=== PATIENT | male | born 1950 | race Caucasian/White ===

== ENCOUNTER 2020-08-05 11:13 | Outpatient (REF) | payer OTHER, SELFPAY ==
[2020-08-05 11:36] LABS: MANUAL DIFF FLAG NO
[2020-08-05 12:05] LABS: Basophils Percent Auto 0.4 % (0-2); Eosinophils Absolute Auto 0.1 X10*3/uL (0.0-0.4); Hematocrit 44.5 % (42-52); Hemoglobin 14.2 g/dl (14.0-18.0); Imm Gran Abs Auto 0.01 X10*3/uL (0.00-0.03); Imm Gran Pct Auto 0.2 % (0.0-0.4); Lymphocytes Absolute Auto 1.4 X10*3/uL (1.2-4.9); Lymphocytes Percent Auto 30.6 % (20-40); Mean Corpuscular HGB Conc 31.9 g/dl (31.0-36.0); Mean Corpuscular Hemoglobin 30.7 pg (27.0-33.0); Mean Corpuscular Volume 96.1 fL (80-98); Mean Platelet Volume 10.5 fL (9.4-12.4); Monocytes Absolute Auto 0.6 X10*3/uL (0.1-1.2); Monocytes Percent Auto 12.4 % (2-11); Neutrophils Absolute Auto 2.5 X10*3/uL (2.0-8.3); Neutrophils Percent Auto 53.4 % (45-73); Platelet Count 258 X10*3/uL (160-400); Red Blood Count 4.63 X10*6/uL (4.60-5.80); Red Cell Distribution Width 13.1 % (11.0-16.0); White Blood Count 4.6 X10*3/uL (4.8-10.8)
[2020-08-05 12:45] LABS: Alanine Aminotransferase 23 U/L (0-40); Albumin Level 4.3 g/dL (3.5-5.0); Alkaline Phosphatase 53 U/L (39-117); Anion Gap 12 (12-20); Aspartate Amino Transferase 22 U/L (5-37); Bilirubin Total 0.6 mg/dL (0.0-1.0); Blood Urea Nitrogen 22 mg/dL (9-16); Calcium 8.9 mg/dL (8.4-10.2); Carbon Dioxide 29 mmol/L (22-29); Chloride 106 mmol/L (96-108); Cholesterol 197 mg/dL; Estimated Glomerular Filt Rate > 60; Glucose Fasting 88 mg/dL (60-99); HDL Cholesterol 49 mg/dL; LDL Cholesterol Calculated 133 mg/dl; Sodium 143 mmol/L (135-145); Total Protein 7.3 g/dL (6.5-8.0); Triglycerides 75 mg/dL
[2020-08-05 12:51] LABS: PSA,Total (Free>4and<10) 2.16 ng/mL (0.00-4.00)
[2020-08-05 12:57] LABS: Glucose Urine UA NEG (NEG); Leukocyte Esterase Urine NEG (NEG); Nitrite Urine NEG (NEG); Urine Blood NEG (NEG); Urine Ketones NEG (NEG); Urine Protein NEG (NEG-TRACE)
[2020-08-05 13:02] LABS: Reflex LDLD? No
[2020-08-05 13:09] LABS: Appearance Urine CLEAR; Color Urine YELLOW
== END 2020-08-05 11:14 | disposition home or self-care (01) ==
LOC: HO.LNP 11:13
PROVIDERS: Visit Provider Internal Medicine
DX: Z00.00 Encounter for general adult medical examination without abnormal findings (principal); Z12.5 Encounter for screening for malignant neoplasm of prostate; R73.03 Prediabetes; E78.00 Pure hypercholesterolemia, unspecified; R31.9 Hematuria, unspecified
CPT/HCPCS: 80053; 80061; 81003; 84153; 85025

== ENCOUNTER 2020-09-02 10:10 | Day surgery (SDC) | payer OTHER, SELFPAY ==
[2020-08-28 14:26] VITALS: BMI 63.3
--- NOTE | 2020-08-29 13:46 | HO.ANESPROP2 ---
Documented by User: Sofya Moreland 08/29/20 13:47 HPI - Anesthesia Eval Consult details Narrative: 70yo M for Colonoscopy [facility] Past Medical History Medical History Bronchitis Cervical disc herniation Hiatal hernia Hx of ulcerative colitis Surgical History Surgical History H/O colonoscopy Hx of inguinal hernia repair Hx of umbilical hernia repair Social History Social History Household Members: Spouse Smoking Status: Former smoker Tobacco Type: Cigarette Smoking Quit Date: >10 yr ago Use of substances other than those prescribed or required for medical reasons: No Advance Directives Information Provided: No Meds Allergies Allergy/AdvReac Type Severity Reaction Status Date / Time seasonal Allergy Intermediate Itchy Eyes Uncoded 08/28/20 14:20 Home Medications Medication Instructions Recorded Confirmed Last Taken Type albuterol sulfate [Ventolin HFA] 2 puff INHALATION Q4-6H PRN 08/28/20 08/28/20 Unknown History balsalazide 2,250 mg PO BID 08/28/20 08/28/20 Unknown History bupropion HCl 08/28/20 08/28/20 Unknown History carisoprodol 1 tab PO Q8H PRN 08/28/20 08/28/20 Unknown History fluticasone propionate 1 spray INTRANASAL DAILY 08/28/20 08/28/20 Unknown History lorazepam 1 tab PO DAILY PRN 08/28/20 08/28/20 Unknown History mesalamine [Canasa] 1 g ID BEDTIME PRN 08/28/20 08/28/20 Unknown History Exam Exam Date and Time: August 29, 2020 1346 Height,Weight and Vital Signs: Height 6 ft Weight 212 kg Pertinent Lab Results Pertinent Lab Results: Laboratory Tests 08/05/20 08/05/20 Unknown Unknown WBC 4.6 L Hgb 14.2 Hct 44.5 Plt Count 258 Sodium 143 Potassium 4.0 Chloride 106 Carbon Dioxide 29 BUN 22 H Creatinine 1.02 Assessment and Plan Assessment Anesthesia Assessment: Chart Reviewed Documented by User: Onur Cordero 09/02/20 10:52 PMFSH Past Medical History Medical History Bronchitis Cervical disc herniation Hiatal hernia Hx of ulcerative colitis Surgical History Surgical History H/O colonoscopy Hx of inguinal hernia repair Hx of umbilical hernia repair Social History Social History Household Members: Spouse Smoking Status: Former smoker Tobacco Type: Cigarette Smoking Quit Date: >10 yr ago Use of substances other than those prescribed or required for medical reasons: No Advance Directives Information Provided: No Meds Allergies Allergy/AdvReac Type Severity Reaction Status Date / Time seasonal Allergy Intermediate Itchy Eyes Uncoded 08/28/20 14:20 Home Medications Medication Instructions Recorded Confirmed Last Taken Type albuterol sulfate [Ventolin HFA] 2 puff INHALATION Q4-6H PRN 08/28/20 08/28/20 Unknown History balsalazide 2,250 mg PO BID 08/28/20 08/28/20 Unknown History bupropion HCl 08/28/20 08/28/20 Unknown History carisoprodol 1 tab PO Q8H PRN 08/28/20 08/28/20 Unknown History fluticasone propionate 1 spray INTRANASAL DAILY 08/28/20 08/28/20 Unknown History lorazepam 1 tab PO DAILY PRN 08/28/20 08/28/20 Unknown History mesalamine [Canasa] 1 g ID BEDTIME PRN 08/28/20 08/28/20 Unknown History Exam Airway Mallampati Class: II TM Dist: >3cm Neck ROM: Full Loose/Missing/Broken Teeth: Yes (UPPER IMPLANTS) Heart: [id number] Lungs: cta b/l Assessment and Plan Assessment Anesthesia Assessment: Anesthesia Plan Discussed, PAT Visit and Chart Reviewed Final Anesthetic Review NPO: Yes ASA Class: II Final Preanesthetic Review: No Changes in Pt Med Stat, Meds/Allgs Chart Reviewed, Consent Obtained/Reviewed and Anes Risks/Benef Reviewed Patient Risk: Low Procedure Risk: Low Assessment/Block/Sedation in SS: Assess/Block/Sedation-SS Anesthetic Plan Anesthetic Plan: MAC: and Agree w/ Assess. and Plan Disposition: Standard PACU
[2020-09-02 10:46] VITALS: BMI 27.3
[2020-09-02 10:47] VITALS: BP 141/74; PULSE 97; RESP 20; TEMP 36.6; O2SAT 96
[2020-09-02] MEDS: Lactated Ringers 1,000 ML 100 ML IVCONT (11:15)
[2020-09-02 13:30] VITALS: BP 115/62; PULSE 66; RESP 16; TEMP 36.6; O2SAT 100
--- NOTE | 2020-09-02 13:31 | P.BOP_ITS ---
Brief Operative Note Date of Service: 09/02/20 Pre-op diagnosis: Screening, Ulcerative colitis Post-op diagnosis: other (Colon polyps, R/O Dysplasia) Procedure: Colonoscopy to the cecum with biopsies, bx/removal of polyp, and snare polypectomy at 20cm with clips x 2 Surgeon: Dae Marcelino Anesthesia: MAC Was an Ems Educator used for this Procedure?: No Estimated blood loss (mL): 5.0 Pathology: other (A. Asc. colon B. Cecal polyp C. Bx around cecal polyp D.Transverse colon E. Descending colon F. Sigmoid colon G. Polyp at 20cm H. Rectum) Condition: stable Disposition: PACU
[2020-09-02 13:45] VITALS: BP 115/67; PULSE 58; RESP 16; TEMP 36.6; O2SAT 97
--- NOTE | 2020-09-02 14:09 | OP_ITS ---
SURGEON: Dae Marcelino MD INDICATIONS: The patient presents for evaluation of colorectal cancer screening and underlying history of ulcerative colitis. Full consent has been obtained from him for this, including risks of bleeding and perforation. PREOPERATIVE DIAGNOSIS: POSTOPERATIVE DIAGNOSIS: PROCEDURE PERFORMED: Colonoscopy to the cecum with snare polypectomy, biopsy and removal of polyp, and biopsies. ESTIMATED BLOOD LOSS: COMPLICATIONS: ANESTHESIA: Monitored anesthesia care. ASSISTANTS: SPECIMENS: PREOPERATIVE DIAGNOSES: Colorectal cancer screening and history of ulcerative colitis. POSTOPERATIVE DIAGNOSES: Colorectal cancer screening and history of ulcerative colitis, colon polyps, rule out dysplasia, diverticulosis, and internal hemorrhoids. DESCRIPTION OF PROCEDURE: The patient was placed in the left lateral decubitus position. The digital rectal exam revealed no abnormalities. The Olympus video pediatric colonoscope was entered into the rectum and advanced easily to the cecum. Once in the cecum, I did identify cecal pouch with appendiceal orifice and a normal-appearing ileocecal valve. The entire cecum was well visualized and appeared normal other than an approximately 4 mm flat polyp, which was biopsied and completely removed with cold biopsy forceps. I also obtained biopsies from around it to rule out any dysplasia. There was transillumination of light deep in the right lower quadrant. The scope was slowly withdrawn assessing all mucosal surfaces carefully. Preparation was excellent. I did not visualize any sign of active colitis. Random biopsies were obtained in the ascending colon, transverse colon, descending colon, sigmoid colon, and rectum. At 20 cm, was an approximately 12 to 15 mm polyp on a stalk, which was snared and recovered by withdrawing it on the tip of the scope. The scope was advanced back to the polypectomy site. There was no sign of any residual polyp. There was some persistent oozing, which was treated with the tip of the snare with good hemostasis. I then placed 2 resolution clips with good deployment and good hemostasis as well. There was a mild amount of sigmoid diverticulosis. In the rectum, scope was retroflexed visualizing internal hemorrhoids, but no other pathology. The rectal mucosa appeared normal. The scope was straightened out and withdrawn from the patient. He tolerated the procedure well and was returned to the recovery area in stable condition. IMPRESSION: 1. Colon polyps, status post snare polypectomy, and biopsy and removal. 2. Rule out dysplasia. 3. Diverticulosis. 4. Internal hemorrhoids. PLAN: The results of the pathology will be checked. I would recommend a repeat colonoscopy in 3 years for further surveillance. He was advised not to use any aspirin and NSAIDs for at least 1 week, but to try to avoid all NSAIDs long-term given the underlying colitis. He will continue his balsalazide for the colitis. This has been discussed with his . MD TRIP Olivares/GRICELDA / [id number] MTDD
== END 2020-09-02 14:16 | disposition home or self-care (01) ==
PROVIDERS: PCP Internal Medicine; Visit Provider Internal Medicine
PROC: 0DJD8ZZ Inspection of Lower Intestinal Tract, Via Natural or Artificial Opening Endoscopic (ICD-10-PCS; CPT 45378; principal; 2020-09-02 11:40)
DX: K51.30 Ulcerative (chronic) rectosigmoiditis without complications (principal); D12.0 Benign neoplasm of cecum; D12.5 Benign neoplasm of sigmoid colon; K57.30 Diverticulosis of large intestine without perforation or abscess without bleeding; K64.8 Other hemorrhoids; K62.89 Other specified diseases of anus and rectum; J42 Unspecified chronic bronchitis; Z87.891 Personal history of nicotine dependence; K44.9 Diaphragmatic hernia without obstruction or gangrene; Z79.899 Other long term (current) drug therapy
CPT/HCPCS: 45385; 45380; 88305

== ENCOUNTER 2021-08-12 10:45 | Outpatient (REF) | payer OTHER, SELFPAY ==
[2021-08-12 10:51] LABS: MANUAL DIFF FLAG NO
[2021-08-12 11:39] LABS: Basophils Percent Auto 0.7 % (0-2); Eosinophils Absolute Auto 0.1 X10*3/uL (0.0-0.4); Eosinophils Percent Auto 2.6 % (0-4); Hematocrit 45.9 % (42.0-52.0); Lymphocytes Absolute Auto 1.4 X10*3/uL (1.2-4.9); Lymphocytes Percent Auto 33.3 % (20-40); Mean Corpuscular HGB Conc 32.7 g/dl (31.0-36.0); Mean Corpuscular Hemoglobin 31.1 pg (27.0-33.0); Mean Corpuscular Volume 95.2 fL (80.0-98.0); Mean Platelet Volume 10.5 fL (9.4-12.4); Monocytes Absolute Auto 0.6 X10*3/uL (0.1-1.2); Monocytes Percent Auto 14.2 % (2-11); Neutrophils Absolute Auto 2.1 x10*3/uL (2.0-8.3); Neutrophils Percent Auto 49.2 % (45-73); Platelet Count 278 X10*3/uL (160-400); Red Blood Count 4.82 X10*6/uL (4.60-5.80); White Blood Count 4.3 X10*3/uL (4.8-10.8)
[2021-08-12 11:49] LABS: Estimated Average Glucose 114 mg/dL; Hemoglobin A1c % 5.6 %
[2021-08-12 12:00] LABS: Appearance Urine CLEAR; Color Urine YELLOW; Glucose Urine UA NEG (NEG); Leukocyte Esterase Urine NEG (NEG); Nitrite Urine NEG (NEG); Specific Gravity - Urine >= 1.030 (1.005-1.025); Urine Blood NEG (NEG); Urine Ketones NEG (NEG); Urine Protein NEG (NEG-TRACE)
[2021-08-12 12:06] LABS: Alanine Aminotransferase 23 U/L (0-40); Albumin Level 4.3 g/dL (3.5-5.0); Alkaline Phosphatase 51 U/L (39-117); Anion Gap 11 (12-20); Aspartate Amino Transferase 21 U/L (5-37); Bilirubin Total 0.7 mg/dL (0.0-1.0); Blood Urea Nitrogen 22 mg/dL (9-16); Calcium 9.5 mg/dL (8.4-10.2); Carbon Dioxide 27 mmol/L (22-29); Chloride 107 mmol/L (96-108); Cholesterol 193 mg/dL; Estimated Glomerular Filt Rate 57; Glucose Random 95 mg/dL (60-115); HDL Cholesterol 37 mg/dL; LDL Cholesterol Calculated 141 mg/dl; Potassium 4.3 mmol/L (3.3-5.1); Sodium 141 mmol/L (135-145); Total Protein 7.6 g/dL (6.5-8.0); Triglycerides 79 mg/dL
[2021-08-12 12:08] LABS: PSA,Total (Free>4and<10) 2.81 ng/mL (0.00-4.00)
[2021-08-12 12:53] LABS: Microalbum/Creatinine Ratio Ur 2.5 ug/mg cr
== END 2021-08-12 10:46 | disposition home or self-care (01) ==
LOC: HO.LNP 10:45
PROVIDERS: Visit Provider Internal Medicine
DX: Z00.00 Encounter for general adult medical examination without abnormal findings (principal); R73.03 Prediabetes; E78.00 Pure hypercholesterolemia, unspecified; R97.20 Elevated prostate specific antigen [PSA]; Z12.5 Encounter for screening for malignant neoplasm of prostate
CPT/HCPCS: 80053; 80061; 81003; 82043; 83036; 84153; 85025

== ENCOUNTER 2021-09-10 12:20 | Outpatient (REF) | payer OTHER, SELFPAY ==
[2021-09-10 12:50] LABS: COVID-19 Test Positive (Negative); IDNOW Serial# 08D9AD1C
== END 2021-09-10 12:21 | disposition home or self-care (01) ==
LOC: HO.LAB 12:20
PROVIDERS: Visit Provider Internal Medicine
DX: Z20.822 Contact with and (suspected) exposure to COVID-19 (principal)
CPT/HCPCS: 87635; C9803

== ENCOUNTER 2022-04-13 15:30 | Outpatient (REF) | payer OTHER, SELFPAY ==
--- NOTE | ~2022-04-13 | XR_ITS ---
EXAMINATION: XR CHEST CLINICAL INFORMATION: Bronchitis COMPARISON: None TECHNIQUE: 2 views of the chest were obtained. FINDINGS: The lungs are hyperinflated but clear of acute process. The heart size and pulmonary vascularity is normal. There is mild spondylosis dorsal spine. No aggressive lytic or sclerotic process seen. XR/XR chest 2V IMPRESSION: Unremarkable chest exam.
== END 2022-04-13 15:31 | disposition home or self-care (01) ==
LOC: HO.XRAY 15:30
PROVIDERS: PCP Internal Medicine; Visit Provider Internal Medicine
DX: J40 Bronchitis, not specified as acute or chronic (principal)
CPT/HCPCS: 71046

== ENCOUNTER 2022-08-28 10:37 | Outpatient (REF) | payer OTHER, SELFPAY ==
[2022-08-28 10:59] LABS: Appearance Urine Clear; Color Urine Yellow; Glucose Urine UA Negative (Negative); Leukocyte Esterase Urine Negative (Negative); Nitrite Urine Negative (Negative); Specific Gravity - Urine 1.015 (1.005-1.025); Urine Blood Negative (Negative); Urine Ketones Negative (Negative); Urine Protein Negative (Neg-Trace)
[2022-08-28 11:05] LABS: Bacteria Urine None Seen (None Seen); Hyaline Casts Urine 0-2 /LPF (0-2); RBC Urine 0-2 /HPF (0-2); Squamous Epithelial Cell Urine 0-2 /HPF (0-2); WBC Urine 0-5 /HPF (0-5)
[2022-08-28 11:37] LABS: Creatinine Urine 105.06 mg/dL; Microalbumin Urine < 5.0 mg/L
[2022-08-28 12:02] LABS: PSA,Total (Free>4and<10) 2.74 ng/mL (0.00-4.00)
== END 2022-08-28 10:38 | disposition home or self-care (01) ==
LOC: HO.LNP 10:37
PROVIDERS: Visit Provider Internal Medicine
DX: Z00.00 Encounter for general adult medical examination without abnormal findings (principal); R73.03 Prediabetes; E78.00 Pure hypercholesterolemia, unspecified; Z12.5 Encounter for screening for malignant neoplasm of prostate
CPT/HCPCS: 81001; 82043; 84153

== ENCOUNTER 2023-07-30 18:34 | Emergency (ER) | payer OTHER, SELFPAY ==
--- NOTE | ~2023-07-30 | CT_ITS ---
EXAMINATION: CT head for stroke CLINICAL INFORMATION: Reason for Exam R facial droop COMPARISON: None. TECHNIQUE: Contiguous axial imaging was performed from the skull base to vertex without intravenous contrast. Sagittal and coronal reformatted images were obtained. This CT examination was performed using dose optimization techniques as appropriate, variously including the following: * Automated exposure control * Adjustment of mA and/or kV according to patient size (this includes techniques or standardized protocols for targeted exams where dose is matched to indication/reason for exam; i.e. extremities or head) Use of iterative reconstruction technique DLP: 693.23 mGy-cm FINDINGS: The ventricles and sulci are normal in size and configuration without significant volume loss or hydrocephalus. There is no abnormal attenuation within the brain parenchyma. No territorial loss of garcia-white differentiation. No acute intracranial hemorrhage or extra-axial fluid collection. No mass lesion, significant mass effect, or herniation pattern. No hyperdense vessel sign. Calcifications along the bilateral carotid siphons. The orbits are grossly normal. Rightward nasal septal deviation with rightward bony spur impinging on the right middle and inferior nasal turbinates. Mild paranasal sinus mucosal thickening with retention cyst in the right alveolar recess. No mastoid effusion. Osseous structures are intact. CT/CT head for stroke IMPRESSION: No acute intracranial abnormality. Specifically, no CT evidence of acute intracranial hemorrhage, significant mass effect, hydrocephalus, or large territorial infarction.
[2023-07-30 18:40] VITALS: BP 168/89; PULSE 78; RESP 18; TEMP 37.2; O2SAT 97; BMI 27.3
--- NOTE | 2023-07-30 18:48 | ECG_ITS ---
Test Reason : RULE OUT AFIB Blood Pressure : / mmHG Vent. Rate : 081 BPM Atrial Rate : 081 BPM P-R Int : 162 ms QRS Dur : 104 ms QT Int : 394 ms P-R-T Axes : 038 031 042 degrees QTc Int : 457 ms Normal sinus rhythm Incomplete right bundle branch block Borderline ECG When compared with ECG of 08-OCT-2006 14:46, Incomplete right bundle branch block is now Present Referred By: Ada Ruiz Electronically Signed By:Devon Olguin
--- NOTE | 2023-07-30 18:49 | ED_ITS ---
HPI - Neuro Symptoms/Deficit General Chief Complaint: Neuro Symptoms/Deficit Stated Complaint: Droopy left side of the face Time Seen by Provider: 07/30/23 18:50 Source: patient and family Mode of arrival: ambulatory Limitations: no limitations History of Present Illness HPI Narrative: 73-year-old male with a history of diabetes mellitus, ulcerative colitis who presents emergency department for evaluation of right facial droop. The patient states that yesterday noted that his right eye and nose were watery. He states that he accidentally bit his lip yesterday as well. Today, while he was eating dinner with his family , his daughter noted that the right side of his face looked droopy therefore his brought him to the emergency department for evaluation. The patient denied being ill in any other way. He denied fever, chills, headache, nausea, vomiting, difficulty talking or difficulty thinking. He has had no change in his vision. He denied lightheadedness or dizziness. He also denied periauricular pain. Patient was evaluated by the prior at triage and was made a stroke protocol brought immediately back to the emergency department and had a CT scan of the brain. I then evaluated the patient in the room shortly after completion of the CT scan of the head. Related Data Home Medications Medication Instructions Recorded Confirmed albuterol sulfate 90 mcg/actuation 2 puff inhalation Q4-6H PRN 08/28/20 08/28/20 aerosol inhaler (Ventolin HFA) Wheezing balsalazide 750 mg capsule 2,250 mg PO BID 08/28/20 08/28/20 bupropion HCl 08/28/20 08/28/20 carisoprodol 350 mg tablet 1 tab PO Q8H PRN Pain 08/28/20 08/28/20 fluticasone propionate 50 1 spray intranasal DAILY 08/28/20 08/28/20 mcg/actuation nasal spray,suspension lorazepam 0.5 mg tablet 1 tab PO DAILY PRN Anxiety 08/28/20 08/28/20 mesalamine 1,000 mg rectal 1 g IL BEDTIME PRN loose stools 08/28/20 08/28/20 suppository (Canasa) Previous Rx's Medication Instructions Recorded prednisone 20 mg tablet 60 mg (3 x 20 mg) PO DAILY 7 days 07/30/23 #21 tabs valacyclovir 1 gram tablet 1,000 mg PO Q8H 7 days #21 tabs 07/30/23 Allergies Allergy/AdvReac Type Severity Reaction Status Date / Time seasonal Allergy Intermediate Itchy Eyes Uncoded 07/30/23 18:46 Review of Systems 2 Review of Systems: Yes all other systems are reviewed and are negative [facility] Past Medical History [facility] Narrative: Social history: Diabetes mellitus, ulcerative colitis. Social history: The patient is and is here with his . Patient denies tobacco use. He occasionally drinks alcohol. He denies drug use. Medical History Bronchitis Cervical disc herniation Hiatal hernia Hx of ulcerative colitis Surgical History H/O colonoscopy Hx of inguinal hernia repair Hx of umbilical hernia repair Social History Social History Household Members: Spouse Use of substances other than those prescribed or required for medical reasons: No Advance Directives: No Advance Directives Information Provided: Yes Physical Exam 2 Vital Signs: Vital Signs: Last Vital Signs Temp 98.9 F 07/30/23 18:40 Pulse 72 07/30/23 19:10 Resp 18 07/30/23 19:10 BP 155/72 H 07/30/23 19:10 Pulse Ox 97 07/30/23 19:10 O2 Del Method Room Air 07/30/23 19:10 BMI result Body Mass Index 27.3 Vital signs did reveal an elevated blood pressure of 160/89 otherwise unremarkable Exam: General: Awake, alert in no distress Head: Normocephalic, atraumatic EENT: PERRL, Lids normal, sclera normal, conjunctiva normal, nose normal , ears normal, throat without erythema or exudates, right facial droop with diminished ability to move right side of his for compared to left Neck: Supple, no adenopathy Lung: breath sounds symmetric, no wheezing, rales or rhonchi Chest: symmetric movement, nontender Heart: regular rate and rhythm, normal S1, S2 no murmurs or rubs Abdomen: soft, non-tender, nondistended, normal bowel sounds Back: no vertebral tenderness, no CVAT Extremities: no deformities, moves all extremities symmetrically Neuro: General: Awake, alert, oriented to person, place answers all questions appropriately, normal speech with no difficulty with word finding Cranial nerves: Patient has a peripheral cranial nerve 7 with inability to close his right eye completely, slight decreased ability to wrinkle his right forehead compared to the left and right lower lip facial droop Strength: 5/5 symmetric, gait was normal Sensory: Normal light touch to both sides of his face, neck upper and lower extremity Cerebellar: No ataxia Course Course Course Narrative: This is an RME: Additional HPI, ROS, PE not included below will be deferred to primary provider. Patient is a 73-year-old male presents emergency department for evaluation of right-sided facial droop. Reports that approximately 15 minutes prior to arrival he was eating dinner when he noticed salad dressing to be dripping out of his mouth. His daughter began to notice a facial droop on the right particularly in his smile. On exam does have right-sided facial droop, weakness spares the forehead, stroke alert called. Patient to be moved in back to ED 19 Medical Decision Making Medical Decision Making MDM Narrative: 73-year-old male with a history of diabetes mellitus and ulcerative colitis who presents emergency department for evaluation of right facial droop. The patient did notice watery right eye with redness yesterday and also accidentally bit his right lower lip yesterday. Today while he was eating dinner his daughter noted that he was drooling and he had right-sided facial droop, this occurred 30 minutes prior to coming to emergency department. The patient denied being ill in any other way, he denied systemic symptoms, he had no periauricular pain. Vital signs did reveal an elevated blood pressure of 168/89 otherwise unremarkable. Patient's examination did reveal a right facial droop with obvious but not significant decreased wrinkling of the forehead on the right compared to the left as well as slight diminished ability to close the right eye and a right lip droop with asymmetric smile. Patient's neurologic exam was otherwise unremarkable Differential diagnosis: ?Includes but is not limited to stroke, Holland's palsy, atrial fibrillation, electrolyte abnormalities, anemia Following evaluation was ordered: Stroke protocol: CBC, BMP, liver profile, PT/INR, PTT, stroke labs, CK, glucose point of care, troponin, CT scan of the head to rule out stroke Patient was initially treated with the following: Prednisone 60 mg orally and valacyclovir 1000 mg orally Course: 19:27 I did discuss the CT scan of the brain with the covering radiologist felt that there was no acute findings on the CT scan Patient's point of care glucose was 147 and PT INR were normal. Twelve EKG revealed no atrial fibrillation 20:32 My impression of the patient's laboratory evaluation as follows: CBC was normal. CMP was normal except for an elevated glucose of 143 and elevated BUN of 20. My impression is that the patient's symptoms are more consistent with Holland's palsy especially symptoms started yesterday and the patient has decreased ability to wrinkled a right forehead compared to the left. Therefore the patient is not a thrombolytics candidate since I do not think that he has had a stroke. Patient will be treated with prednisone 60 mg once a day for 7 days and valacyclovir 1000 mg 3 times a day for 1 week. He was advised to get natural tears/saline drops and apply 2 drops to his right eye every hour while awake and to get a cup eye patch to wear at night to prevent corneal abrasions Patient was given printed and verbal instructions and discharged home. Admission/Observation Consideration of admission/observation: Escalation of care including admission/observation considered Lab Data [facility] Lab Attestation statement: I reviewed the patient's lab results. 07/30/23 19:09 07/30/23 19:09 Labs: Lab Results 07/30/23 07/30/23 Range/Units 19:09 19:17 WBC 5.9 (4.8-10.8) X10*3/uL RBC 4.59 L (4.60-5.80) X10*6/uL Hgb 14.3 (14.0-18.0) g/dl Hct 41.8 L (42.0-52.0) % MCV 91.1 (80.0-98.0) fL MCH 31.2 (27.0-33.0) pg MCHC 34.2 (31.0-36.0) g/dl RDW 12.6 (11.0-16.0) % Plt Count 230 (160-400) X10*3/uL MPV 9.4 (9.4-12.4) fL Immature Gran % (Auto) 0.0 (0.0-0.4) % Neut % (Auto) 57.1 (45-73) % Lymph % (Auto) 28.0 (20-40) % Falls % (Auto) 12.6 H (2-11) % Eos % (Auto) 2.1 (0-4) % Baso % (Auto) 0.2 (0-2) % Lymph # (Auto) 1.6 (1.2-4.9) X10*3/uL Falls # (Auto) 0.7 (0.1-1.2) X10*3/uL Eos # (Auto) 0.1 (0.0-0.4) X10*3/uL Baso # (Auto) 0.0 (0.0-0.2) X10*3/uL Abs Immat Gran (auto) 0.00 (0.00-0.03) X10*3/uL Absolute Neuts (auto) 3.3 (2.0-8.3) x10*3/uL Absolute Nucleated RBC 0.000 (0.0-0.012) X10*3/uL Nucleated RBC % (auto) 0.0 (0.0-0.2) /100WBC PT 10.9 L (11.1-13.3) SEC INR 0.9 (0.9-1.1) APTT 27.9 (26.0-36.8) SEC Sodium 139 (135-145) mmol/L Potassium 3.4 (3.3-5.1) mmol/L Chloride 106 (96-108) mmol/L Carbon Dioxide 28 (22-29) mmol/L Anion Gap 8 L (12-20) BUN 20 H (9-16) mg/dL Creatinine 1.02 (0.5-1.4) mg/dL Estim Creat Clear Calc 70.7 Estimated GFR > 60 POC Glucose 143 H (60-115) mg/dL Random Glucose 150 H (60-115) mg/dL Calcium 8.9 D (8.4-10.2) mg/dL Total Bilirubin 0.3 (0.0-1.0) mg/dL Direct Bilirubin 0.1 (0.0-0.5) mg/dL AST 17 (5-37) U/L ALT 18 (0-40) U/L Alkaline Phosphatase 64 (39-117) U/L Total Creatine Kinase 84 (38-174) U/L Troponin I High Sens < 2.7 (<3.5-35.0) ng/L Total Protein 7.5 (6.5-8.0) g/dL Albumin 4.1 (3.5-5.0) g/dL Independent Interpretation I performed an independent interpretation of an: EKG Interpretation: My independent interpretation patient's 12 EKG done at 18:58 hours is as follows: Normal sinus rhythm with a rate of 81, normal IL interval, prolonged QRS duration of 104 milliseconds, normal QTC interval of 457 milliseconds, patient has an incomplete right bundle-branch block with no ST segment elevation, no ST segment depression, no significant T-wave abnormalities, no PACs, no PVCs Radiology Impression Discussion of test interpretation with radiology: I discussed test interpretation with the radiologist and I have reviewed the radiologist's reading. Radiologist Impression: CT head for stroke IMPRESSION: No acute intracranial abnormality. Specifically, no CT evidence of acute intracranial hemorrhage, significant mass effect, hydrocephalus, or large territorial infarction. Dictated By: Echo Crawford Independent Historian Clinical information obtained from an independent historian. History obtained from or confirmed by: Spouse Prescription Management I considered prescription management with: Antiviral and Other (Prednisone/anti- inflammatory steroid) Chronic Conditions Patient?s care impacted by: Diabetes NIH Stroke Scale Internal: Initial- Upon Arrival Level of Consciousness: Alert Level of Consciousness Questions: Answers both questions correctly Level of Consciousness Commands: Performs both tasks correctly Best Gaze: Normal Visual: No visual loss Facial Palsy: Minor paralyis (With diminished ability to wrinkle the right forehead compared to the left) Motor Arm (Right): No drift Motor Arm (Left): No drift Motor Leg (Right): No drift Motor Leg (Left): No drift Limb Ataxia: Absent Sensory: Normal Best Language: No aphasia Dysarthia: Normal Extinction and Inattention: No abnormality Score: 1 Critical Care Time Critical Care Time Critical Care Time: Yes Total Critical Care Time: 35 Attestation: Critical Care: The patient was critically ill with a high probability of imminent or life threatening deterioration. I spent greater than 30 minutes of discontinuous time evaluating the patient,delivering critical care at the bedside, discussing and evaluating pertinent data with consultants. Critical care time does not include time spent performing separately billable procedures or teaching. Total time spent performing critical care was 35 minutes. Discharge Plan Discharge Clinical Impression: Holland's palsy Patient Disposition: Home, Self-Care Instructions: Holland Palsy (ED) Additional Instructions: The CT scan of your brain was normal which is reassuring Your blood work was normal except for slight elevation in your blood sugar of 143. Your physical examination is consistent with cranial nerve 7 inflammation/palsy (Holland's palsy) This can sometimes be caused by a viral infection which causes the cranial nerve 7 to get swollen and impinge. Take prednisone 20 mg pills, 3 pills once a day for 7 days. While you ?are taking prednisone, do not take any NSAIDs (Motrin, Advil, ibuprofen, Aleve, naproxen). Prednisone will make your blood sugar go up so drank fluid to help decrease your blood sugar and to stay hydrated Take valacyclovir 1000 mg, 1 pill 3 times a day for 7 days. Holland's palsy inhibits her ability to closure your eye complete and this can cause your eye to dry out or get scratched at night. 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 Also purchase a cup eye patch to cover your eye at night to prevent you from scratching your eye at night. Follow-up with your doctor in 2 days. Please return to the emergency department if your symptoms get worse or if you develop any symptoms that are concerning to you. Prescriptions: New prednisone 20 mg tablet 60 mg PO DAILY 7 Days Qty: 21 0RF valacyclovir 1 gram tablet 1,000 mg PO Q8H 7 Days Qty: 21 0RF No Action carisoprodol 350 mg tablet 1 tab PO Q8H PRN (Reason: Pain) lorazepam 0.5 mg tablet 1 tab PO DAILY PRN (Reason: Anxiety) balsalazide 750 mg Capsule 2,250 mg PO BID albuterol sulfate [Ventolin HFA] 90 mcg/actuation Hfa Aerosol Inhaler 2 puff INHALATION Q4-6H PRN (Reason: Wheezing) fluticasone propionate 50 mcg/actuation spray,suspension 1 spray intranasal DAILY mesalamine [Canasa] 1,000 mg Suppository 1 g IL BEDTIME PRN (Reason: loose stools) bupropion HCl
[2023-07-30 19:10] VITALS: BP 155/72; PULSE 72; RESP 18; O2SAT 97
[2023-07-30 19:14] LABS: MANUAL DIFF FLAG NO
--- NOTE | 2023-07-30 19:18 | PC.NURSE ---
Pt aox4 arrived via EMS presenting with right facial droop. Right eye redness and swelling. Reports no pain at this time. GCS: 15. Stroke alert called in. Ct Scan done, results pending. 20G IV line on the R AC. Labs drawn and sent. Pts reports noticing right facial droop today around 1800.
[2023-07-30 19:20] LABS: Basophils Percent Auto 0.2 % (0-2); Eosinophils Absolute Auto 0.1 X10*3/uL (0.0-0.4); Eosinophils Percent Auto 2.1 % (0-4); Hematocrit 41.8 % (42.0-52.0); Hemoglobin 14.3 g/dl (14.0-18.0); Lymphocytes Absolute Auto 1.6 X10*3/uL (1.2-4.9); Mean Corpuscular HGB Conc 34.2 g/dl (31.0-36.0); Mean Corpuscular Hemoglobin 31.2 pg (27.0-33.0); Mean Corpuscular Volume 91.1 fL (80.0-98.0); Mean Platelet Volume 9.4 fL (9.4-12.4); Monocytes Absolute Auto 0.7 X10*3/uL (0.1-1.2); Monocytes Percent Auto 12.6 % (2-11); Neutrophils Absolute Auto 3.3 x10*3/uL (2.0-8.3); Neutrophils Percent Auto 57.1 % (45-73); Platelet Count 230 X10*3/uL (160-400); Red Blood Count 4.59 X10*6/uL (4.60-5.80); Red Cell Distribution Width 12.6 % (11.0-16.0); White Blood Count 5.9 X10*3/uL (4.8-10.8)
[2023-07-30 19:23] LABS: Glucose, Whole Blood 143 mg/dL (60-115)
[2023-07-30 19:26] LABS: INTERNATIONAL NORM RATIO 0.9 (0.9-1.1); Prothrombin Time 10.9 SEC (11.1-13.3)
[2023-07-30 19:29] LABS: Partial Thromboplastin Time 27.9 SEC (26.0-36.8)
[2023-07-30 19:33] LABS: Alanine Aminotransferase 18 U/L (0-40); Albumin Level 4.1 g/dL (3.5-5.0); Alkaline Phosphatase 64 U/L (39-117); Anion Gap 8 (12-20); Aspartate Amino Transferase 17 U/L (5-37); Bilirubin Direct 0.1 mg/dL (0.0-0.5); Bilirubin Total 0.3 mg/dL (0.0-1.0); Blood Urea Nitrogen 20 mg/dL (9-16); Calcium 8.9 mg/dL (8.4-10.2); Carbon Dioxide 28 mmol/L (22-29); Chloride 106 mmol/L (96-108); Creatinine Clr Calc Pharmacy 70.7; Estimated Glomerular Filt Rate > 60; Glucose Random 150 mg/dL (60-115); Potassium 3.4 mmol/L (3.3-5.1); Sodium 139 mmol/L (135-145); Total Protein 7.5 g/dL (6.5-8.0)
[2023-07-30 19:37] LABS: Stroke Lab Use COMPLETE
[2023-07-30 19:40] LABS: Troponin-I High Sensitivity < 2.7 ng/L (<3.5-35.0)
[2023-07-30] MEDS: predniSONE 20 MG TABLET 60 MG PO (20:46)
[2023-07-30] MEDS: valACYclovir HCL 1,000 MG TABLET 1000 MG PO (20:46)
[2023-07-30 21:00] VITALS: BP 161/74; PULSE 62; RESP 12; TEMP 36.8; O2SAT 97
[2023-07-31 10:13] LABS: Prothrombin Time Whole Bld POC 12.3 sec (11.1-13.5)
== END 2023-07-30 21:01 | disposition home or self-care (01) ==
PROVIDERS: Nurse Practitioner Family; Emergency Provider Emergency Medicine Emergency Medical Services; PCP Internal Medicine
DX: G51.0 Bell's palsy (principal); I45.10 Unspecified right bundle-branch block; Z79.899 Other long term (current) drug therapy; Z51.81 Encounter for therapeutic drug level monitoring
CPT/HCPCS: 36415; 70450; 80048; 80076; 82550; 82947; 84484; 85025; 85610; 85730; 93005; 99283; 99285

== ENCOUNTER → 2023-07-30 18:48 | Outpatient (BNV) | payer OTHER, SELFPAY | PROVIDERS: Emergency Provider Emergency Medicine Emergency Medical Services; PCP Internal Medicine; Visit Provider Internal Medicine Cardiovascular Disease | DX: R94.31 Abnormal electrocardiogram [ECG] [EKG] (principal) | CPT/HCPCS: 93010 ==

== ENCOUNTER 2023-08-23 11:44 | Outpatient (REF) | payer OTHER, SELFPAY ==
[2023-08-23 11:59] LABS: MANUAL DIFF FLAG NO
[2023-08-23 12:11] LABS: Basophils Percent Auto 0.4 % (0-2); Eosinophils Absolute Auto 0.1 X10*3/uL (0.0-0.4); Eosinophils Percent Auto 1.7 % (0-4); Hematocrit 45.6 % (42.0-52.0); Hemoglobin 14.7 g/dl (14.0-18.0); Lymphocytes Absolute Auto 1.2 X10*3/uL (1.2-4.9); Lymphocytes Percent Auto 24.8 % (20-40); Mean Corpuscular HGB Conc 32.2 g/dl (31.0-36.0); Mean Corpuscular Hemoglobin 30.6 pg (27.0-33.0); Mean Platelet Volume 10.2 fL (9.4-12.4); Monocytes Absolute Auto 0.6 X10*3/uL (0.1-1.2); Monocytes Percent Auto 11.7 % (2-11); Neutrophils Absolute Auto 2.9 x10*3/uL (2.0-8.3); Neutrophils Percent Auto 61.4 % (45-73); Platelet Count 265 X10*3/uL (160-400); Red Cell Distribution Width 13.2 % (11.0-16.0); White Blood Count 4.7 X10*3/uL (4.8-10.8)
[2023-08-23 12:16] LABS: Estimated Average Glucose 120 mg/dL; Hemoglobin A1c % 5.8 % (<6.0)
[2023-08-23 12:34] LABS: Creatinine Urine 242.92 mg/dL; Microalbum/Creatinine Ratio Ur 3.7 ug/mg cr (<30)
[2023-08-23 12:38] LABS: Alanine Aminotransferase 19 U/L (0-40); Albumin Level 4.1 g/dL (3.5-5.0); Alkaline Phosphatase 49 U/L (39-117); Anion Gap 10 (12-20); Aspartate Amino Transferase 19 U/L (5-37); Bilirubin Total 0.6 mg/dL (0.0-1.0); Blood Urea Nitrogen 21 mg/dL (9-16); Calcium 9.5 mg/dL (8.4-10.2); Carbon Dioxide 29 mmol/L (22-29); Chloride 107 mmol/L (96-108); Cholesterol 188 mg/dL (<200); Estimated Glomerular Filt Rate > 60; Glucose Fasting 94 mg/dL (60-99); HDL Cholesterol 45 mg/dL (>40); LDL Cholesterol Calculated 128 mg/dL (<100); Potassium 4.1 mmol/L (3.3-5.1); Sodium 142 mmol/L (135-145); Total Protein 7.5 g/dL (6.5-8.0); Triglycerides 79 mg/dL (<150)
[2023-08-23 12:42] LABS: PSA,Total (Free>4and<10) 3.19 ng/mL (0.00-4.00)
[2023-08-23 12:43] LABS: Appearance Urine Clear; Color Urine Yellow; Glucose Urine UA Negative (Negative); Leukocyte Esterase Urine Trace (Negative); Nitrite Urine Negative (Negative); PH 5.5 (5.0-9.0); Specific Gravity - Urine 1.025 (1.005-1.025); UMIC TRIGGER UACC YES; Urine Blood Negative (Negative); Urine Ketones Trace mg/dL (Negative); Urine Protein Negative (Neg-Trace)
[2023-08-23 12:49] LABS: Bacteria Urine None Seen (None Seen); Hyaline Casts Urine 0-2 /LPF (0-2); RBC Urine 0-2 /HPF (0-2); Squamous Epithelial Cell Urine 0-2 /HPF (0-2); UACC Culture Trigger YES
== END 2023-08-23 11:45 | disposition home or self-care (01) ==
LOC: HO.LNP 11:44
PROVIDERS: Visit Provider Internal Medicine
DX: Z00.00 Encounter for general adult medical examination without abnormal findings (principal); R73.09 Other abnormal glucose; E78.00 Pure hypercholesterolemia, unspecified; Z12.5 Encounter for screening for malignant neoplasm of prostate; R82.90 Unspecified abnormal findings in urine
CPT/HCPCS: 80053; 80061; 81001; 82043; 82570; 83036; 84153; 85025; 87086

== ENCOUNTER 2023-09-10 06:27 | Day surgery (SDC) | payer OTHER, SELFPAY ==
[2023-09-09 07:14] VITALS: BMI 26.4
[2023-09-10 06:44] VITALS: BMI 26.4
[2023-09-10] MEDS: Lactated Ringers 1,000 ML 100 ML IVCONT (06:52)
[2023-09-10 07:00] VITALS: BP 125/68; PULSE 77; RESP 18; TEMP 36.6; O2SAT 96
--- NOTE | 2023-09-10 07:20 | HO.ANESPROP2 ---
Documented by User: Sofya Moreland NP 09/09/23 10:36 HPI - Anesthesia Eval Consult details Narrative: 73yo M for Colonoscopy [facility] Past Medical History Medical History Bronchitis Cervical disc herniation Hiatal hernia Hx of ulcerative colitis Surgical History Surgical History H/O colonoscopy Hx of inguinal hernia repair Hx of umbilical hernia repair Social History Social History Household Members: Spouse Patient Tobacco Use Status: Former Tobacco user Are you DNR?: No Advance Directives: No Advance Directives Information Provided: Yes Nutrition Risks: No Nutritional Risk Meds Allergies Allergy/AdvReac Type Severity Reaction Status Date / Time Seasonal Allergies Allergy Intermediate Itchy Eyes Verified 09/10/23 07:01 Home Medications ?Medication ?Instructions ?Recorded ?Confirmed ?Last Taken ?Type albuterol sulfate 90 mcg/actuation 2 puff inhalation Q4-6H PRN 08/28/20 09/09/23 Unknown History aerosol inhaler (Ventolin HFA) Wheezing balsalazide 750 mg capsule 2,250 mg PO BID 08/28/20 09/09/23 Unknown History bupropion HCl 08/28/20 08/28/20 Unknown History carisoprodol 350 mg tablet 1 tab PO Q8H PRN Pain 08/28/20 09/09/23 Unknown History fluticasone propionate 50 1 spray intranasal DAILY 08/28/20 09/09/23 Unknown History mcg/actuation nasal spray,suspension lorazepam 0.5 mg tablet 1 tab PO DAILY PRN Anxiety 08/28/20 09/09/23 Unknown History mesalamine 1,000 mg rectal 1 g NE BEDTIME PRN loose stools 08/28/20 09/09/23 Unknown History suppository (Canasa) Exam Height,Weight and Vital Signs: Height 6 ft Weight 88.451 kg Assessment and Plan Assessment Anesthesia Assessment: Chart Reviewed Documented by User: Hannah Jackson DO 09/10/23 07:20 [facility] Past Medical History Medical History Bronchitis Cervical disc herniation Hiatal hernia Hx of ulcerative colitis Family History Family history of problems with anesthesia: No Surgical History Surgical History H/O colonoscopy Hx of inguinal hernia repair Hx of umbilical hernia repair History of Problems with Anesthesia: No Social History Social History Household Members: Spouse Patient Tobacco Use Status: Former Tobacco user Are you DNR?: No Advance Directives: No Advance Directives Information Provided: Yes Nutrition Risks: No Nutritional Risk Meds Allergies Allergy/AdvReac Type Severity Reaction Status Date / Time Seasonal Allergies Allergy Intermediate Itchy Eyes Verified 09/10/23 07:01 Home Medications ?Medication ?Instructions ?Recorded ?Confirmed ?Last Taken ?Type albuterol sulfate 90 mcg/actuation 2 puff inhalation Q4-6H PRN 08/28/20 09/09/23 Unknown History aerosol inhaler (Ventolin HFA) Wheezing balsalazide 750 mg capsule 2,250 mg PO BID 08/28/20 09/09/23 Unknown History bupropion HCl 08/28/20 08/28/20 Unknown History carisoprodol 350 mg tablet 1 tab PO Q8H PRN Pain 08/28/20 09/09/23 Unknown History fluticasone propionate 50 1 spray intranasal DAILY 08/28/20 09/09/23 Unknown History mcg/actuation nasal spray,suspension lorazepam 0.5 mg tablet 1 tab PO DAILY PRN Anxiety 08/28/20 09/09/23 Unknown History mesalamine 1,000 mg rectal 1 g NE BEDTIME PRN loose stools 08/28/20 09/09/23 Unknown History suppository (Canasa) Exam Exam Date and Time: September 10, 2023717 Height,Weight and Vital Signs: Height 6 ft Weight 88.451 kg Vital Signs Temperature 97.9 F 09/10/23 07:00 Pulse Rate 77 09/10/23 07:00 Respiratory Rate 18 09/10/23 07:00 Blood Pressure 125/68 09/10/23 07:00 Pulse Oximetry 96 09/10/23 07:00 Oxygen Delivery Method Room Air 09/10/23 07:00 Temperature 97.9 F 09/10/23 07:00 Pulse Rate 77 09/10/23 07:00 Respiratory Rate 18 09/10/23 07:00 Blood Pressure 125/68 09/10/23 07:00 Pulse Oximetry 96 09/10/23 07:00 Oxygen Delivery Method Room Air 09/10/23 07:00 Airway Mallampati Class: II TM Dist: >3cm Neck ROM: Full Loose/Missing/Broken Teeth: No (patient denies any loose or broken teeth) Heart: S1S2 Lungs: CTAB Assessment and Plan Assessment Anesthesia Assessment: Anesthesia Plan Discussed and Chart Reviewed Final Anesthetic Review Family History of Problems with Anesthesia: No History of Problems with Anesthesia: No NPO: Yes ASA Class: II Final Preanesthetic Review: No Changes in Pt Med Stat, Meds/Allgs Chart Reviewed, Consent Obtained/Reviewed and Anes Risks/Benef Reviewed Patient Risk: Low Procedure Risk: Low Anesthetic Plan Anesthetic Plan: MAC: and Agree w/ Assess. and Plan Disposition: Standard PACU
--- NOTE | 2023-09-10 08:37 | P.BOP_ITS ---
Brief Operative Note Date of Service: 09/10/23 Pre-op diagnosis: Ulcerative colitis Post-op diagnosis: other (Same, R/O Dysplasia) Procedure: Colonoscopy to the cecum and TI with biopsies Surgeon: Dae Marcelino MD Anesthesia: MAC Was an Can Filling Room Sweeper used for this Procedure?: No Estimated blood loss (mL): 2.0 Pathology: other (A. Ascending colon B. Transverse colon C. Descending colon D. Sigmoid colon E. Rectum) Condition: stable Disposition: PACU
[2023-09-10 08:38] VITALS: BP 102/53; PULSE 51; RESP 16; TEMP 36.3; O2SAT 99
[2023-09-10 08:53] VITALS: BP 128/64; PULSE 52; RESP 18; O2SAT 99
[2023-09-10 09:07] VITALS: BP 121/69; PULSE 55; RESP 18; TEMP 36.3; O2SAT 95
--- NOTE | 2023-09-10 09:14 | OP_ITS ---
DATE OF SERVICE: 09/10/2023 SURGEON: Dae Marcelino MD INDICATIONS: The patient presents for followup of long-standing ulcerative colitis and personal history of colon polyps. Full consent has been obtained from him for this, including risks of bleeding and perforation. PREOPERATIVE DIAGNOSIS: POSTOPERATIVE DIAGNOSIS: PROCEDURE PERFORMED: Colonoscopy to cecum and terminal ileum with multiple biopsies. ESTIMATED BLOOD LOSS: COMPLICATIONS: ANESTHESIA: Monitored anesthesia care. ASSISTANTS: SPECIMENS: PREOPERATIVE DIAGNOSES: History of ulcerative colitis and personal history of colon polyps. POSTOPERATIVE DIAGNOSES: History of ulcerative colitis, personal history of colon polyps, diverticulosis, internal hemorrhoids, and rule out dysplasia. DESCRIPTION OF PROCEDURE: The patient was placed in the left lateral decubitus position. The digital rectal exam revealed no abnormalities. The Olympus video pediatric colonoscope was then entered into the rectum and advanced easily to the cecum. Once in the cecum, I did identify normal-appearing cecal pouch with appendiceal orifice and a normal-appearing ileocecal valve. The terminal ileum was cannulated and appeared normal. The scope was withdrawn back in the colon. The entire cecum and ileocecal valve appeared normal. The scope was slowly withdrawn, assessing all mucosal surfaces carefully. Preparation was excellent. I did not visualize any sign of polyps, colitis, nor angiodysplasia. There was a mild amount of sigmoid diverticulosis. I did obtain random biopsies in the ascending colon, transverse colon, descending colon, sigmoid colon, and rectum. In the rectum, scope was retroflexed visualizing minimal internal hemorrhoids, but no other pathology. The rectal mucosa appeared normal. The scope was straightened and withdrawn from the patient. He tolerated the procedure well and was returned to the recovery area in stable condition. IMPRESSION: 1. Diverticulosis. 2. Rule out dysplasia. 3. Internal hemorrhoids. PLAN: The results of the biopsies will be checked. Assuming there is no dysplasia, I would recommend a repeat colonoscopy in 3 years. He was advised not to use any aspirin or NSAIDs for 1 week. He will, otherwise, see me on a p.r.n. basis. He was advised to continue his balsalazide. This has been discussed with his . MD TRIP Olivares/GRICELDA / [id number]
== END 2023-09-10 09:30 | disposition home or self-care (01) ==
PROVIDERS: PCP Internal Medicine; Visit Provider Internal Medicine
PROC: 0DJD8ZZ Inspection of Lower Intestinal Tract, Via Natural or Artificial Opening Endoscopic (ICD-10-PCS; CPT 45378; principal; 2023-09-10 07:30)
DX: K52.9 Noninfective gastroenteritis and colitis, unspecified (principal); K57.30 Diverticulosis of large intestine without perforation or abscess without bleeding; K64.8 Other hemorrhoids; Z87.19 Personal history of other diseases of the digestive system; Z86.010 Personal history of colon polyps
CPT/HCPCS: 45380; 88305; J2250; J2704

== ENCOUNTER 2024-02-22 13:17 | Outpatient (AMB) | payer OTHER, SELFPAY ==
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
== END 2024-02-22 13:37 | disposition home or self-care (01) ==
PROVIDERS: PCP Internal Medicine; Visit Provider Surgery
DX: D49.9 Neoplasm of unspecified behavior of unspecified site (principal)
CPT/HCPCS: 99203

== ENCOUNTER → 2024-02-22 13:17 | Outpatient (BNVA) | payer OTHER, SELFPAY | PROVIDERS: PCP Internal Medicine; Visit Provider Surgery | DX: D49.89 Neoplasm of unspecified behavior of other specified sites (principal) | CPT/HCPCS: 99202 ==

== ENCOUNTER 2024-03-02 11:49 | Outpatient (REF) | payer OTHER, SELFPAY ==
[2024-03-02 12:10] LABS: Blood Urea Nitrogen 16 mg/dL (9-16); Estimated Glomerular Filt Rate > 60
[2024-03-02 12:35] LABS: PSA,Total (Free>4and<10) 2.94 ng/mL (0.00-4.00)
== END 2024-03-02 11:50 | disposition home or self-care (01) ==
LOC: HO.LNP 11:49
PROVIDERS: Visit Provider Internal Medicine
DX: R79.9 Abnormal finding of blood chemistry, unspecified (principal); R97.20 Elevated prostate specific antigen [PSA]; Z12.5 Encounter for screening for malignant neoplasm of prostate
CPT/HCPCS: 82565; 84153; 84520

== ENCOUNTER 2024-03-14 11:00 | Outpatient (REF) | payer OTHER, SELFPAY ==
--- NOTE | ~2024-03-14 | MR_ITS ---
EXAMINATION: MR HUMERUS WITHOUT AND WITH CONTRAST, LEFT CLINICAL INFORMATION: Palpable lump in the region of the left triceps. No recent injury. COMPARISON: None available. TECHNIQUE: MRI of the left humerus was performed before and after the intravenous administration of 9 mL of Gadavist on a high-field scanner. FINDINGS: BONE: No marrow edema or evidence of acute osseous injury. No fracture or dislocation. No concerning lytic or blastic osseous lesion. No postcontrast marrow enhancement. MUSCLES/TENDONS: Along the posterior aspect of the humerus within the undersurface of the triceps muscle belly, there is an encapsulated, fat signal lesion measuring approximately 2.4 x 3.7 x 6.3 cm, consistent with an intramuscular lipoma. No soft tissue component or postcontrast enhancement to suggest a more aggressive lesion. The remaining visualized muscles and tendons are otherwise intact. No edema or enhancement to suggest acute injury. SOFT TISSUES: No additional soft tissue mass or fluid collection. Partially visualized, simple-appearing left renal cyst. Findings are not clinically significant and no dedicated followup imaging is recommended. MR/MR humerus LT wo/w con IMPRESSION: 1. 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 No soft tissue component or postcontrast enhancement to suggest a more aggressive lesion. 2. No acute osseous abnormality. Electronically signed by: Joe Shrestha MD 03/14/2024 12:33 PM [facility]
[2024-03-14] MEDS: gadobutroL 10 ML VIAL IVPUSH (12:11)
== END 2024-03-14 11:01 | disposition home or self-care (01) ==
LOC: HO.MRI 11:00
PROVIDERS: PCP Internal Medicine; Visit Provider Surgery
DX: D49.9 Neoplasm of unspecified behavior of unspecified site (principal)
CPT/HCPCS: 73220; A9585

== ENCOUNTER 2024-03-21 09:43 | Outpatient (AMB) | payer OTHER, SELFPAY ==
[2024-03-21 09:50] VITALS: BP 122/76; PULSE 76
--- NOTE | 2024-03-21 09:50 | MHC.OFFVIS ---
Vital Signs 03/21/24 09:50 BP 122/76 Blood Pressure Location Rt brachial Position Sitting Pulse 76 Intake Visit Reasons: Discuss MRI results~ 03-14-24 Intake Note: Patient scheduled to discuss MRI of Lt humerus on 03-14-2024. 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 MRI of left upper extremity demonstrates soft tissue mass consistent with intramuscular lipoma in the triceps. No other ominous findings demonstrated. This was reviewed with the patient and his [facility] Medical History Bronchitis Hiatal hernia Cervical disc herniation Hx of ulcerative colitis Surgical History Hx of inguinal hernia repair Hx of umbilical hernia repair H/O colonoscopy Social History Household Members: Spouse Patient Tobacco Use Status: Former Tobacco user Physical Exam Vital Signs: Last Vital Signs Pulse 76 03/21/24 09:50 BP 122/76 03/21/24 09:50 Chest Other: Chest breath sounds bilaterally, HS 1 in 2 GI Other: Abdomen is soft, benign Extrem Other: Extremity left mid triceps demonstrated intramuscular mass measuring roughly 6 x 4 cm consistent with intramuscular lipoma Assessment & Plan Assessment & Plan (1) Intramuscular lipoma: Code(s): D17.9 - Benign lipomatous neoplasm, unspecified Category: Surgical Plan Patient like to have this removed. Risks, benefits, alternatives of excision of left intramuscular triceps lipoma were reviewed with the patient and included but not limited to bleeding, infection, recurrence, numbness, pain, scarring, seroma formation the patient wishes to proceed. All questions answered. Arrangements were made for this on a day which is convenient for him. Coding Level of Care Code Est Pt Level 5 (67310) Diagnoses Intramuscular lipoma D17.9
== END 2024-03-21 10:00 | disposition home or self-care (01) ==
PROVIDERS: PCP Internal Medicine; Visit Provider Surgery
DX: D17.9 Benign lipomatous neoplasm, unspecified (principal)
CPT/HCPCS: 99214

== ENCOUNTER → 2024-03-21 09:43 | Outpatient (BNVA) | payer OTHER, SELFPAY | PROVIDERS: PCP Internal Medicine; Visit Provider Surgery | DX: D17.9 Benign lipomatous neoplasm, unspecified (principal) | CPT/HCPCS: 99212 ==

== ENCOUNTER 2024-04-21 08:46 | Day surgery (SDC) | payer OTHER, SELFPAY ==
--- OUTSIDE RECORDS SUMMARY | 2024-04-11 18:47 | XMS_ITS | Continuity of Care Document ---
Author Name [facility] Organization [facility] Care Team Providers Care Note Teller Name Role Phone [facility] Unavailable Unavailable Problems Combined list of problems from Department of Defense and Veterans Affairs facilities. It does not include entries that were removed or entered in error. 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, 2023 Entered By: RONAN PALOMINO Comment: vet with [facility] visit for R facial weakness-slowly improving [facility] Chronic sinusitis Active Condition Se 2019 Entered By: ELIEL ALEMAN Comment: reviewed [facility] Exposure to potentially hazardous substance (SCT 592523038572614) Active Condition Aug 10 Entered By: JORDIN HARMON Comment: Entered automatically through [facility] Problem List documentation program [facility] Hemorrhoid Active Condition Jan 26 Entered By: MOISES HAMLIN Comment: MED: PHENYLEPHRINE [facility] History of surgery Active Condition Jan 26, 2019 Entered By: MOISES HAMLIN Comment: lright ing hernia ( with mesh ) / umbilical hernia x 2 [facility] Hyperlipidemia (SCT 09355500) Active Condition [facility] Lipoma of skin and subcutaneous tissue (excluding face) Active Condition Feb 09, 2024 Entered By: RONAN PALOMINO Comment: vet has likely lipoma overlying left biceps area- smaller in past 3 mos per vet- needs surg eval [facility] Neck pain Active Condition Aug 05 Entered By: RONAN PALOMINO Comment: non [place] - nEUROLOGY Neurology: Dr. Dent ( [facility] ) - RTC 03/2019 -/ workers comp injur/ [facility]ili[facility] [place] [facility] Posttraumatic stress disorder Active Condition Dec 19, 2021 Entered By: ELIEL ALEMAN Comment: reviewedMar 19, 2022 Entered By: ELIEL ALEMAN Comment: reviewedFe2022 Entered By: ELIEL ALEMAN Comment: reviewedOct 01, 2022 Entered By: ELIEL ALEMAN Comment: reviewed [facility] Tinnitus Active Condition [facility] Ulcerative colitis Active Condition Jan 08, 2016 Entered By: SHAGGY ALVA Comment: colonoscpoy 06/11/15 nl, repeat ep 2018 Entered By: MOISES HAMLIN Comment: NON AL - GI ( GI: Dr. Michaud ) - for collitis / and Hemorrhoid [facility] [place] [facility] Under care of multiple providers Active Condition Jan 26, 2019 Entered By: MOISES HAMLNI Comment: NON la - PCP - DR Norris 2018 Entered By: MOISES HAMLIN Comment: Neurology: Dr. Dent [facility] [place] [facility] Crohn's disease Inactive Condition 01/08/2016 [facility] Diagnosis: ICD-10-CM K08.9 Disorder of teeth and supporting structures, unspecified Active Diagnosis [facility] Diagnosis: ICD-10-CM K03.6 Deposits [accretions] on teeth Active Diagnosis [facility] Diagnosis: ICD-10-CM 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 Diagnosis: ICD-10-CM K51.90 Ulcerative colitis, unspecified, without complications Active Diagnosis [facility] Diagnosis: ICD-10-CM F41.9 Anxiety disorder, unspecified Active Diagnosis [facility] Diagnosis: ICD-10-CM F43.12 Post-traumatic stress disorder, chronic Active Diagnosis [facility] Diagnosis: ICD-10-CM Z46.0 Encounter for fit/adjst of spectacles and contact lenses Active Diagnosis [facility] Diagnosis: ICD-10-CM H25.813 Combined forms of age-related cataract, bilateral Active Diagnosis [facility] Medications Combined list of outpatient medications from Department of Defense and Veterans Affairs facilities.Medications provided include 1) outpatient medications from the last 15 months, and 2) patient-reported medications. Medication Details Route Status Patient Instructions Prescription Expires Prescription Number Last Dispense Date Ordering Provider Order Date Order Qty Source ACETAMINOPH EN 500MG TAB TAKE ONE TABLET BY MOUTH NEEDED ORAL ACTIVE RIRI RAMOS 2019 [facility] ALBUTEROL 90MCG/ACTUA T (CFC-F) INHL,ORAL,8 .5GM DOSE COUNTER INHALE 2 PUFFS BY MOUTH EVERY 4 HOURS NEEDED FOR [facility] RESPIR ATORY (INHAL ATION) ACTIVE 08/04/2024 [id number] CHAVEZ NAYAK 2023 1 [facility] ALBUTEROL 90MCG/ACTUA T (CFC-F) INHL,ORAL,8 .5GM DOSE COUNTER INHALE 2 PUFFS BY MOUTH EVERY 4 HOURS NEEDED FOR [facility] [place] RESPIR ATORY (INHAL ATION) DISCONT INUED 06/19/2023 [id number] 4 CHAVEZ NAYAK 2023 1 [facility] ALBUTEROL 90MCG/ACTUA T (CFC-F) INHL,ORAL,8 .5GM DOSE COUNTER INHALE 2 PUFFS BY MOUTH EVERY 4 HOURS NEEDED FOR [facility] RESPIR ATORY (INHAL ATION) DISCONT INUED 02/25/2023 [id number] APPLE MAJOR VKALYAN HENRY 2022 1 [facility] BALSALAZIDE DISODIUM 750MG CAP TAKE THREE CAPSULES BY MOUTH TWICE DAILY ORAL ACTIVE 10/06/2024 [id number] 4 JARVIS MICHAUD ERT 2023 180 [facility] BALSALAZIDE DISODIUM 750MG CAP TAKE THREE CAPSULES BY MOUTH TWICE DAILY FOR ULCERATI VE COLITIS ORAL DISCONT INUED 10/05/2024 [id number] 4 CHAVEZ NAYAK 2023 540 [facility] BALSALAZIDE DISODIUM 750MG CAP TAKE THREE CAPSULES BY MOUTH TWICE DAILY ORAL 06/01/2023 [id number] 3 JARVIS MICHAUD ERT 2022 180 [facility] BUPROPION HCL 150MG 24HR TAB,SA TAKE ONE TABLET BY MOUTH EVERY MORNING *FOR MOOD ORAL ACTIVE 01/17/2025 [id number] 4 ELIEL ALEMAN 2023 30 [facility] BUPROPION HCL 150MG 24HR TAB,SA TAKE ONE TABLET BY MOUTH EVERY MORNING *FOR MOOD ORAL DISCONT INUED 04/29/2024 [id number] 4 ELIEL ALEMAN 2022 30 [facility] BUPROPION HCL 150MG 24HR TAB,SA TAKE ONE TABLET BY MOUTH EVERY MORNING *FOR MOOD ORAL DISCONT INUED 01/14/2024 [id number] 3 ELIEL ALEMAN 2022 30 [facility] CARBAMIDE PEROXIDE 6.5%/GLYCER IN SOLN,OTIC INSTILL 5 TO 10 DROPS INTO THE AFFECTED EAR(S) ONCE DAILY NEEDED FOR EAR WAX BLOCKAGE AURICU LAR (OTIC) ACTIVE 05/20/2024 [id number] 4 CHAVEZ NAYAK 2023 15 [facility] CARISOPRODO L 350MG TAB TAKE ONE TABLET BY MOUTH ONCE DAILY PRN ORAL ACTIVE RIRI RAMOS 2016 [facility] DICLOFENAC NA 75MG TAB,EC TAKE ONE TABLET BY MOUTH TWICE DAILY ORAL ACTIVE CHAVEZ NAYAK 2022 [facility] FLUTICASONE PROPIONATE 50MCG/SPRAY SOLN,NASAL, 16GM INSTILL 1 SPRAY INTO EACH NOSTRIL ONCE DAILY NASAL ACTIVE 08/04/2024 [id number] 4 CHAVEZ NAYAK 2023 3 [facility] FLUTICASONE PROPIONATE 50MCG/SPRAY SOLN,NASAL, 16GM INSTILL 1 SPRAY INTO EACH NOSTRIL ONCE DAILY NASAL DISCONT INUED (EDIT) 08/18/2023 [id number] 4 CHAVEZ NAYAK 2023 1 [facility] FLUTICASONE PROPIONATE 50MCG/SPRAY SOLN,NASAL, 16GM INSTILL 1 SPRAY INTO EACH NOSTRIL ONCE DAILY NASAL DISCONT INUED 04/26/2023 [id number] 3 APPLE MAJOR 2022 1 [facility] LORAZEPAM 0.5MG TAB TAKE ONE TABLET BY MOUTH ONCE DAILY NEEDED FOR ANXIETY. CAUTION SEDATION .. 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 NO ALCOHOL AND DON'T TAKE IF TAKING CARISOPR ODOL OR TRAMADOL . ORAL ACTIVE 07/19/2024 [id number] ELIEL ALEMAN 2023 30 [facility] LORAZEPAM 0.5MG TAB TAKE ONE TABLET BY MOUTH ONCE DAILY NEEDED FOR ANXIETY. CAUTION SEDATION .. 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 NO ALCOHOL AND DON'T TAKE IF TAKING CARISOPR ODOL OR TRAMADOL . ORAL DISCONT INUED 07/16/2023 [id number] 3 ELIEL ALEMAN 2022 30 [facility] LORAZEPAM 0.5MG TAB TAKE ONE TABLET BY MOUTH ONCE DAILY NEEDED FOR ANXIETY. CAUTION SEDATION .. 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 NO ALCOHOL AND DON'T TAKE IF TAKING CARISOPR ODOL OR TRAMADOL . ORAL 10/30/2023 [id number] 4 ELIEL ALEMAN 2023 30 [facility] MESALAMINE 1000MG SUPP,RTL INSERT 1 SUPPOSIT ORY(IES) RECTALLY AT BEDTIME RECTAL ACTIVE 10/06/2024 [id number] 4 JARVIS MICHAUD 2023 30 [facility] MESALAMINE 1000MG SUPP,RTL INSERT 1 SUPPOSIT ORY(IES) RECTALLY AT BEDTIME FOR ULCERATI VE COLITIS RECTAL DISCONT INUED 05/20/2024 [id number] 4 CHAVEZ NAYAK 2023 90 [facility] MESALAMINE 1000MG SUPP,RTL INSERT 1 SUPPOSIT ORY(IES) RECTALLY AT BEDTIME FOR ULCERATI VE COLITIS RECTAL DISCONT INUED (EDIT) 01/27/2024 [id number] 3 APPLE MAJOR 2022 30 [facility] MULTIVITAMI NS W/MINERALS TAB TAKE ONE TABLET BY MOUTH QD ORAL ACTIVE RIRI RAMOS 2018 [facility] OTHER CAP/TAB TAKE PREPARAT ION H SUPPOSIT ORIES BY MOUTH NEEDED ORAL ACTIVE RIRI RAMOS 2018 [facility] PHENYLEPHRI NE HCL 0.25% SUPP,RTL INSERT 1 SUPPOSIT ORY(IES) RECTALLY ONCE DAILY NEEDED RECTAL ACTIVE 08/04/2024 [id number] 4 HAYDEE CHAVEZ RAMSEY MITESH Jolie 2023 84 [facility] PHENYLEPHRI NE HCL 0.25% SUPP,RTL INSERT 1 SUPPOSIT ORY(IES) RECTALLY ONCE DAILY NEEDED FOR INFLAMMA TION OF THE RECTUM RECTAL DISCONT INUED (EDIT) 05/20/2024 [id number] 4 HAYDEE RAMSEYCHAVEZ MITESH Dave 2023 84 [facility] PHENYLEPHRI NE HCL 0.25% SUPP,RTL INSERT 1 SUPPOSIT ORY(IES) RECTALLY ONCE DAILY NEEDED FOR INFLAMMA TION OF THE RECTUM RECTAL DISCONT INUED (EDIT) 01/27/2024 [id number] 3 APPLE MAJOR 2022 84 [facility] SODIUM FLUORIDE 1.1% TOOTHPASTE BRUSH SMALL AMOUNT TO TEETH TWICE DAILY FOR TOOTH DECAY PREVENTI ON DENTAL ACTIVE 05/20/2024 [id number] 4 HAYDEE RAMSEYCHAVEZ MITESH Dave 2023 102 [facility] SODIUM FLUORIDE 1.1% TOOTHPASTE BRUSH SMALL AMOUNT TO TEETH TWICE DAILY FOR TOOTH DECAY PREVENTI ON DENTAL DISCONT INUED (EDIT) 08/12/2023 [id number] 3 ASHUTOSH MERCEDES 2022 100 [facility] Immunizations Combined list of available immunizations from the Department of Defense and Veterans Affairs facilities. Immunization Series Date Given Administered By Site Reaction Lot Number CVX Code Drug Analytical Scientist Status Comments Source INFLUENZA, HIGH-DOSE, TRIVALENT, PF 2023 VALORIE HUERTAS RIGHT DELTO ID [id number] 135 complet ed [facility] INFLUENZA, HIGH-DOSE, QUADRIVALENT 2022 VINICIUS MILES LEFT DELTO ID [id number] A 197 complet ed [facility] INFLUENZA VACCINE, QUADRIVALENT, ADJUVANTED 2021 205 complet ed [facility] COVID-19 (MODERNA), MRNA, LNP-S, PF, 100 MCG/0.5ML DOSE OR 50 MCG/0.25ML DOSE 4 2021 207 complet ed MOD; [id number]; 2 [facility] COVID-19 (MODERNA), MRNA, LNP-S, PF, 100 MCG/0.5ML DOSE OR 50 MCG/0.25ML DOSE 3 2020 207 complet ed [facility] COVID-19 (MODERNA), MRNA, LNP-S, PF, 100 MCG/0.5 ML DOSE 2 2020 207 complet ed MOD; [id number]; 1 [facility] COVID-19 (MODERNA), MRNA, LNP-S, PF, 100 MCG/0.5 ML DOSE 1 2020 207 complet ed MOD; [id number]; 1 [facility] INFLUENZA, INJECTABLE, QUADRIVALENT, PRESERVATIVE FREE 2019 150 complet ed [facility] INFLUENZA, TRIVALENT, ADJUVANTED 2018 168 complet ed Site: Left Deltoid [facility] INFLUENZA, SEASONAL, INJECTABLE 2017 141 complet ed Site: Left Deltoid [facility] FLU,3 YRS (HISTORICAL) 2016 88 complet ed [facility] PNEUMOCOCCAL POLYSACCHARID E PPV23 2016 33 complet ed [facility] DTAP, UNSPECIFIED FORMULATION 2014 107 complet ed [facility] PNEUMOCOCCAL CONJUGATE PCV 13 2014 133 complet ed FAX RECEIVED [facility] Results Combined list of recent chemistry, hematology and other laboratory results from Department of Defense and Veterans Affairs, ranging from 15 months to all on record, depending upon the facility. Order Name Results Value Reference Range Date Interpretation Specimen Comments Source FENTANYL SCREEN PANEL FENTANYL [PRESENCE] IN URINE BY SCREEN METHOD NONE-D ETECTE Dng/mL Specimen Type: URINE Comment: Urine with Cr <5 is diluted or substituted . Cr between 5 and 20 is very dilute. Urine with SG of 1.001 or less is diluted or substituted . SG of 1.003 or less is very dilute. Urine with a pH <3 or >11 has been adulterated and is unsuitable for testing by our current method. Urine with pH between 3 and 4 OR 10 and 11 may have been adulterated . FENTANYL CONFIRMATIO N NOT SENT BY LAB. Ordering Provider: MANASA ALEMAN Report Released Date/Time: Apr 29, 2023 10:52 AM Reporting Lab: [facility] [employer] [address] Performing Lab: [address] [address] [facility] FENTANYL SCREEN PANEL PH OF URINE 6.0 [pH] 4 - 10 Specimen Type: URINE Comment: Urine with Cr <5 is diluted or substituted . Cr between 5 and 20 is very dilute. Urine with SG of 1.001 or less is diluted or substituted . SG of 1.003 or less is very dilute. Urine with a pH <3 or >11 has been adulterated and is unsuitable for testing by our current method. Urine with pH between 3 and 4 OR 10 and 11 may have been adulterated . FENTANYL CONFIRMATIO N NOT SENT BY LAB. Ordering Provider: MANASA ALEMAN Report Released Date/Time: Apr 29, 2023 10:52 AM Reporting Lab: [facility] BT ImagingUSE[address] [address] Performing Lab: [facility] [address] [facility] FENTANYL SCREEN PANEL CREATININE [MASS/VOLUM E] IN URINE 261.96 mg/dL Specimen Type: URINE Comment: Urine with Cr <5 is diluted or substituted . Cr between 5 and 20 is very dilute. Urine with SG of 1.001 or less is diluted or substituted . SG of 1.003 or less is very dilute. Urine with a pH <3 or >11 has been adulterated and is unsuitable for testing by our current method. Urine with pH between 3 and 4 OR 10 and 11 may have been adulterated . FENTANYL CONFIRMATIO N NOT SENT BY LAB. Ordering Provider: MANASA ALEMAN Report Released Date/Time: Apr 29, 2023 10:52 AM Reporting Lab: [address] [address] Performing Lab: [address] [address] [facility] FENTANYL SCREEN PANEL SPECIFIC GRAVITY OF URINE 1.023 1.003 - 1.020 H Specimen Type: URINE Comment: Urine with Cr <5 is diluted or substituted . Cr between 5 and 20 is very dilute. Urine with SG of 1.001 or less is diluted or substituted . SG of 1.003 or less is very dilute. Urine with a pH <3 or >11 has been adulterated and is unsuitable for testing by our current method. Urine with pH between 3 and 4 OR 10 and 11 may have been adulterated . FENTANYL CONFIRMATIO N NOT SENT BY LAB. Ordering Provider: MANASA ALEMAN Report Released Date/Time: Apr 29, 2023 10:52 AM Reporting Lab: [address] [address] Performing Lab: [address] [address] [facility] OXYCODONE SCREEN PANEL OXYCODONE [PRESENCE] IN URINE BY SCREEN METHOD NONE-D ETECTE D - 100 Specimen Type: URINE Comment: Urine with Cr <5 is diluted or substituted . Cr between 5 and 20 is very dilute. Urine with SG of 1.001 or less is diluted or substituted . SG of 1.003 or less is very dilute. Urine with a pH <3 or >11 has been adulterated and is unsuitable for testing by our current method. Urine with pH between 3 and 4 OR 10 and 11 may have been adulterated . Ordering Provider: MANASA ALEMAN Report Released Date/Time: Apr 29, 2023 10:52 AM Reporting Lab: [facility] [place] [facility] [address] [facility] [address] Performing Lab: [facility] [place] [facility] [address] [facility] [address] [facility] OXYCODONE SCREEN PANEL PH OF URINE 6.0 [pH] 4 - 10 Specimen Type: URINE Comment: Urine with Cr <5 is diluted or substituted . Cr between 5 and 20 is very dilute. Urine with SG of 1.001 or less is diluted or substituted . SG of 1.003 or less is very dilute. Urine with a pH <3 or >11 has been adulterated and is unsuitable for testing by our current method. Urine with pH between 3 and 4 OR 10 and 11 may have been adulterated . Ordering Provider: MANASA ALEMAN Report Released Date/Time: Apr 29, 2023 10:52 AM Reporting Lab: [facility] [place] [facility] [address] [facility] [address] Performing Lab: [facility] [place] [address] [address] [facility] [facility] OXYCODONE SCREEN PANEL CREATININE [MASS/VOLUM E] IN URINE 271.02 mg/dL Specimen Type: URINE Comment: Urine with Cr <5 is diluted or substituted . Cr between 5 and 20 is very dilute. Urine with SG of 1.001 or less is diluted or substituted . SG of 1.003 or less is very dilute. Urine with a pH <3 or >11 has been adulterated and is unsuitable for testing by our current method. Urine with pH between 3 and 4 OR 10 and 11 may have been adulterated . Ordering Provider: MANASA ALEMAN Report Released Date/Time: Apr 29, 2023 10:52 AM Reporting Lab: [facility] [place] [facility] [address] [facility] [address] Performing Lab: [facility] [place] [address] [address] [facility] [facility] OXYCODONE SCREEN PANEL SPECIFIC GRAVITY OF URINE 1.023 1.003 - 1.020 H Specimen Type: URINE Comment: Urine with Cr <5 is diluted or substituted . Cr between 5 and 20 is very dilute. Urine with SG of 1.001 or less is diluted or substituted . SG of 1.003 or less is very dilute. Urine with a pH <3 or >11 has been adulterated and is unsuitable for testing by our current method. Urine with pH between 3 and 4 OR 10 and 11 may have been adulterated . Ordering Provider: MANASA ALEMAN Report Released Date/Time: Apr 29, 2023 10:52 AM Reporting Lab: [facility] Pentaho[address] [address] Performing Lab: [address] [address] [facility] OPIATES SCREEN PANEL OPIATES [PRESENCE] IN URINE BY SCREEN METHOD NONE-D ETECTE D - 300 Specimen Type: URINE Comment: Urine with Cr <5 is diluted or substituted . Cr between 5 and 20 is very dilute. Urine with SG of 1.001 or less is diluted or substituted . SG of 1.003 or less is very dilute. Urine with a pH <3 or >11 has been adulterated and is unsuitable for testing by our current method. Urine with pH between 3 and 4 OR 10 and 11 may have been adulterated . Ordering Provider: MANASA ALEMAN Report Released Date/Time: Apr 29, 2023 10:52 AM Reporting Lab: [facility] [address] Performing Lab: [facility] [address] [facility] OPIATES SCREEN PANEL PH OF URINE 6.0 [pH] 4 - 10 Specimen Type: URINE Comment: Urine with Cr <5 is diluted or substituted . Cr between 5 and 20 is very dilute. Urine with SG of 1.001 or less is diluted or substituted . SG of 1.003 or less is very dilute. Urine with a pH <3 or >11 has been adulterated and is unsuitable for testing by our current method. Urine with pH between 3 and 4 OR 10 and 11 may have been adulterated . Ordering Provider: MANASA ALEMAN Report Released Date/Time: Apr 29, 2023 10:52 AM Reporting Lab: [facility] [place] [facility] [address] [facility] [address] Performing Lab: [facility]ITALUSE[address] [address] [facility]ITALUSE [facility] OPIATES SCREEN PANEL CREATININE [MASS/VOLUM E] IN URINE 271.02 mg/dL Specimen Type: URINE Comment: Urine with Cr <5 is diluted or substituted . Cr between 5 and 20 is very dilute. Urine with SG of 1.001 or less is diluted or substituted . SG of 1.003 or less is very dilute. Urine with a pH <3 or >11 has been adulterated and is unsuitable for testing by our current method. Urine with pH between 3 and 4 OR 10 and 11 may have been adulterated . Ordering Provider: MANASA ALEMAN Report Released Date/Time: Apr 29, 2023 10:52 AM Reporting Lab: [facility]ITALUSE[address] [address] Performing Lab: [facility] [address] [facility] OPIATES SCREEN PANEL SPECIFIC GRAVITY OF URINE 1.023 1.003 - 1.020 H Specimen Type: URINE Comment: Urine with Cr <5 is diluted or substituted . Cr between 5 and 20 is very dilute. Urine with SG of 1.001 or less is diluted or substituted . SG of 1.003 or less is very dilute. Urine with a pH <3 or >11 has been adulterated and is unsuitable for testing by our current method. Urine with pH between 3 and 4 OR 10 and 11 may have been adulterated . Ordering Provider: MANASA ALEMAN Report Released Date/Time: Apr 29, 2023 10:52 AM Reporting Lab: [facility]ITALUSE[address] [address] Performing Lab: [facility] [address] [address] [facility] ALCOHOL, ETHYL URINE PANEL ETHANOL [MASS/VOLUM E] IN URINE NONE-D ETECTE Dmg/dL - 10 Specimen Type: URINE Comment: Urine with Cr <5 is diluted or substituted . Cr between 5 and 20 is very dilute. Urine with SG of 1.001 or less is diluted or substituted . SG of 1.003 or less is very dilute. Urine with a pH <3 or >11 has been adulterated and is unsuitable for testing by our current method. Urine with pH between 3 and 4 OR 10 and 11 may have been adulterated . Ordering Provider: MANASA ALEMAN Report Released Date/Time: Apr 29, 2023 10:52 AM Reporting Lab: [address] [address] Performing Lab: [address] [address] [facility] ALCOHOL, ETHYL URINE PANEL PH OF URINE 6.0 [pH] 4 - 10 Specimen Type: URINE Comment: Urine with Cr <5 is diluted or substituted . Cr between 5 and 20 is very dilute. Urine with SG of 1.001 or less is diluted or substituted . SG of 1.003 or less is very dilute. Urine with a pH <3 or >11 has been adulterated and is unsuitable for testing by our current method. Urine with pH between 3 and 4 OR 10 and 11 may have been adulterated . Ordering Provider: MANASA ALEMAN Report Released Date/Time: Apr 29, 2023 10:52 AM Reporting Lab: [address] [address] Performing Lab: [address] [address] [facility] ALCOHOL, ETHYL URINE PANEL CREATININE [MASS/VOLUM E] IN URINE 271.02 mg/dL Specimen Type: URINE Comment: Urine with Cr <5 is diluted or substituted . Cr between 5 and 20 is very dilute. Urine with SG of 1.001 or less is diluted or substituted . SG of 1.003 or less is very dilute. Urine with a pH <3 or >11 has been adulterated and is unsuitable for testing by our current method. Urine with pH between 3 and 4 OR 10 and 11 may have been adulterated . Ordering Provider: MANASA ALEMAN Report Released Date/Time: Apr 29, 2023 10:52 AM Reporting Lab: [address] [address] Performing Lab: [address] [address] [facility] ALCOHOL, ETHYL URINE PANEL SPECIFIC GRAVITY OF URINE 1.023 1.003 - 1.020 H Specimen Type: URINE Comment: Urine with Cr <5 is diluted or substituted . Cr between 5 and 20 is very dilute. Urine with SG of 1.001 or less is diluted or substituted . SG of 1.003 or less is very dilute. Urine with a pH <3 or >11 has been adulterated and is unsuitable for testing by our current method. Urine with pH between 3 and 4 OR 10 and 11 may have been adulterated . Ordering Provider: MANASA ALEMAN Report Released Date/Time: Apr 29, 2023 10:52 AM Reporting Lab: [address] [address] Performing Lab: [address] [address] [facility] BENZODIAZ EPINES SCREEN PANEL BENZODIAZEP KATHERIN [PRESENCE] IN URINE BY SCREEN METHOD NONE-D ETECTE D - 200 Specimen Type: URINE Comment: Urine with Cr <5 is diluted or substituted . Cr between 5 and 20 is very dilute. Urine with SG of 1.001 or less is diluted or substituted . SG of 1.003 or less is very dilute. Urine with a pH <3 or >11 has been adulterated and is unsuitable for testing by our current method. Urine with pH between 3 and 4 OR 10 and 11 may have been adulterated . Ordering Provider: MANASA ALEMAN Report Released Date/Time: Apr 29, 2023 10:52 AM Reporting Lab: [facility] [place] [address] [address] Performing Lab: [facility] [address] [facility] BENZODIAZ EPINES SCREEN PANEL PH OF URINE 6.0 [pH] 4 - 10 Specimen Type: URINE Comment: Urine with Cr <5 is diluted or substituted . Cr between 5 and 20 is very dilute. Urine with SG of 1.001 or less is diluted or substituted . SG of 1.003 or less is very dilute. Urine with a pH <3 or >11 has been adulterated and is unsuitable for testing by our current method. Urine with pH between 3 and 4 OR 10 and 11 may have been adulterated . Ordering Provider: MANASA ALEMAN Report Released Date/Time: Apr 29, 2023 10:52 AM Reporting Lab: [address] [address] Performing Lab: [facility] [address] [facility] BENZODIAZ EPINES SCREEN PANEL CREATININE [MASS/VOLUM E] IN URINE 271.02 mg/dL Specimen Type: URINE Comment: Urine with Cr <5 is diluted or substituted . Cr between 5 and 20 is very dilute. Urine with SG of 1.001 or less is diluted or substituted . SG of 1.003 or less is very dilute. Urine with a pH <3 or >11 has been adulterated and is unsuitable for testing by our current method. Urine with pH between 3 and 4 OR 10 and 11 may have been adulterated . Ordering Provider: MANASA ALEMAN Report Released Date/Time: Apr 29, 2023 10:52 AM Reporting Lab: [facility] [address] Performing Lab: [facility] [address] [address] [facility] BENZODIAZ EPINES SCREEN PANEL SPECIFIC GRAVITY OF URINE 1.023 1.003 - 1.020 H Specimen Type: URINE Comment: Urine with Cr <5 is diluted or substituted . Cr between 5 and 20 is very dilute. Urine with SG of 1.001 or less is diluted or substituted . SG of 1.003 or less is very dilute. Urine with a pH <3 or >11 has been adulterated and is unsuitable for testing by our current method. Urine with pH between 3 and 4 OR 10 and 11 may have been adulterated . Ordering Provider: MANASA ALEMAN Report Released Date/Time: Apr 29, 2023 10:52 AM Reporting Lab: [address] [address] Performing Lab: [address] [address] [facility] CANNABINO IDS SCREEN PANEL CANNABINOID S [PRESENCE] IN URINE BY SCREEN METHOD NONE-D ETECTE D - 50 Specimen Type: URINE Comment: Urine with Cr <5 is diluted or substituted . Cr between 5 and 20 is very dilute. Urine with SG of 1.001 or less is diluted or substituted . SG of 1.003 or less is very dilute. Urine with a pH <3 or >11 has been adulterated and is unsuitable for testing by our current method. Urine with pH between 3 and 4 OR 10 and 11 may have been adulterated . Ordering Provider: MANASA ALEMAN Report Released Date/Time: Apr 29, 2023 10:52 AM Reporting Lab: [address] [address] Performing Lab: [address] [address] [facility] CANNABINO IDS SCREEN PANEL PH OF URINE 6.0 [pH] 4 - 10 Specimen Type: URINE Comment: Urine with Cr <5 is diluted or substituted . Cr between 5 and 20 is very dilute. Urine with SG of 1.001 or less is diluted or substituted . SG of 1.003 or less is very dilute. Urine with a pH <3 or >11 has been adulterated and is unsuitable for testing by our current method. Urine with pH between 3 and 4 OR 10 and 11 may have been adulterated . Ordering Provider: MANASA ALEMAN Report Released Date/Time: Apr 29, 2023 10:52 AM Reporting Lab: [facility] [place] [facility] [address] [facility] [address] Performing Lab: [facility] [place] [address] [address] [facility] CANNABINO IDS SCREEN PANEL CREATININE [MASS/VOLUM E] IN URINE 271.02 mg/dL 20 Specimen Type: URINE Comment: Urine with Cr <5 is diluted or substituted . Cr between 5 and 20 is very dilute. Urine with SG of 1.001 or less is diluted or substituted . SG of 1.003 or less is very dilute. Urine with a pH <3 or >11 has been adulterated and is unsuitable for testing by our current method. Urine with pH between 3 and 4 OR 10 and 11 may have been adulterated . Ordering Provider: MANASA ALEMAN Report Released Date/Time: Apr 29, 2023 10:52 AM Reporting Lab: [facility] [place] [address] [address] Performing Lab: [facility] [address] [address] [facility] CANNABINO IDS SCREEN PANEL SPECIFIC GRAVITY OF URINE 1.023 1.003 - 1.020 H Specimen Type: URINE Comment: Urine with Cr <5 is diluted or substituted . Cr between 5 and 20 is very dilute. Urine with SG of 1.001 or less is diluted or substituted . SG of 1.003 or less is very dilute. Urine with a pH <3 or >11 has been adulterated and is unsuitable for testing by our current method. Urine with pH between 3 and 4 OR 10 and 11 may have been adulterated . Ordering Provider: MANASA ALEMAN Report Released Date/Time: Apr 29, 2023 10:52 AM Reporting Lab: [facility] [place] [address] [address] Performing Lab: [facility]AL[facility]TR[facility] [address] [address] [facility] COCAINE SCREEN PANEL COCAINE [PRESENCE] IN URINE BY SCREEN METHOD NONE-D ETECTE D - 300 Specimen Type: URINE Comment: Urine with Cr <5 is diluted or substituted . Cr between 5 and 20 is very dilute. Urine with SG of 1.001 or less is diluted or substituted . SG of 1.003 or less is very dilute. Urine with a pH <3 or >11 has been adulterated and is unsuitable for testing by our current method. Urine with pH between 3 and 4 OR 10 and 11 may have been adulterated . Ordering Provider: MANASA ALEMAN Report Released Date/Time: Apr 29, 2023 10:52 AM Reporting Lab: [address] [address] Performing Lab: [address] [address] [facility] COCAINE SCREEN PANEL PH OF URINE 6.0 [pH] 4 - 10 Specimen Type: URINE Comment: Urine with Cr <5 is diluted or substituted . Cr between 5 and 20 is very dilute. Urine with SG of 1.001 or less is diluted or substituted . SG of 1.003 or less is very dilute. Urine with a pH <3 or >11 has been adulterated and is unsuitable for testing by our current method. Urine with pH between 3 and 4 OR 10 and 11 may have been adulterated . Ordering Provider: MANASA ALEMAN Report Released Date/Time: Apr 29, 2023 10:52 AM Reporting Lab: [address] [address] Performing Lab: [address] [address] [facility] COCAINE SCREEN PANEL CREATININE [MASS/VOLUM E] IN URINE 271.02 mg/dL Specimen Type: URINE Comment: Urine with Cr <5 is diluted or substituted . Cr between 5 and 20 is very dilute. Urine with SG of 1.001 or less is diluted or substituted . SG of 1.003 or less is very dilute. Urine with a pH <3 or >11 has been adulterated and is unsuitable for testing by our current method. Urine with pH between 3 and 4 OR 10 and 11 may have been adulterated . Ordering Provider: MANASA ALEMAN Report Released Date/Time: Apr 29, 2023 10:52 AM Reporting Lab: [facility] [place] [facility] [address] [facility] [address] Performing Lab: [facility] [place] [facility] [address] [facility] [address] [facility] [place] [facility] COCAINE SCREEN PANEL SPECIFIC GRAVITY OF URINE 1.023 1.003 - 1.020 H Specimen Type: URINE Comment: Urine with Cr <5 is diluted or substituted . Cr between 5 and 20 is very dilute. Urine with SG of 1.001 or less is diluted or substituted . SG of 1.003 or less is very dilute. Urine with a pH <3 or >11 has been adulterated and is unsuitable for testing by our current method. Urine with pH between 3 and 4 OR 10 and 11 may have been adulterated . Ordering Provider: MANASA ALEMAN Report Released Date/Time: Apr 29, 2023 10:52 AM Reporting Lab: [facility] [place] [address] [address] Performing Lab: [facility] [place] [address] [address] [facility] [place] [facility] PSA PROSTATE SPECIFIC AG [MASS/VOLUM E] IN SERUM OR PLASMA 3.88 ng/mL 0.00 - 4.00 Specimen Type: SERUM No comment entered. Ordering Provider: LINDA GONZALEZ Report Released Date/Time: May 20, 2023 10:17 AM Reporting Lab: [facility] [place] [address] [address] Performing Lab: [facility] [place] [address] [address] [facility] IRON & TIBC PANEL IRON BINDING CAPACITY [MASS/VOLUM E] IN SERUM OR PLASMA 312 ug/dL 204 - 475 Specimen Type: SERUM No comment entered. Ordering Provider: LINDA GONZALEZ Report Released Date/Time: May 20, 2023 10:17 AM Reporting Lab: [facility] [place] [facility] [address] [facility] [address] Performing Lab: [facility] [place] [facility] [address] [facility] [address] [facility] [place] [facility] IRON & TIBC PANEL IRON [MASS/VOLUM E] IN SERUM OR PLASMA 126 ug/dL 40 - 160 Specimen Type: SERUM No comment entered. Ordering Provider: LINDA GONZALEZ Report Released Date/Time: May 20, 2023 10:17 AM Reporting Lab: [facility] [place] [facility] [address] [facility] [address] Performing Lab: [facility] [place] [facility] [address] [facility] [address] [facility] [place] [facility] IRON & TIBC PANEL IRON/IRON BINDING CAPACITY.TO JERED [MASS RATIO] IN SERUM OR PLASMA 40.4 20.0 - 50.0 Specimen Type: SERUM No comment entered. Ordering Provider: LINDA GONZALEZ Report Released Date/Time: May 20, 2023 10:17 AM Reporting Lab: [facility] [place] [facility] [address] [facility] [address] Performing Lab: [facility] [place] [facility] [address] [facility] [address] [facility] [place] [facility] FERRITIN FERRITIN [MASS/VOLUM E] IN SERUM OR PLASMA 169 ng/mL 20 - 300 Specimen Type: SERUM No comment entered. Ordering Provider: LINDA GONZALEZ Report Released Date/Time: May 20, 2023 10:17 AM Reporting Lab: [facility] [place] [facility] [address] [facility] [address] Performing Lab: [facility] [place] [facility] [address] [facility] [address] [facility] Vital Signs Combined list of inpatient and outpatient Vital Signs from Department of Defense and Veterans Affairs, ranging from 12 months to all on record, depending upon the facility. Vital Sign Value Date Comments Source SYSTOLIC BLOOD PRESSURE 171 02/11/20 24 10:36:35 [facility] [place] [facility] DIASTOLIC BLOOD PRESSURE 92 024 10:36:35 [facility] [place] [facility] PULSE OXIMETRY 02/11/2024 10:36:35 [facility] [place] WEIGHT 02/11/2024 10:36:35 [facility] [place] PAIN 0 02/11/2024 10:36:35 [facility] [place] [facility] HEIGHT 02/11/2024 10:36:35 [facility] [place] TEMPERATURE 02/11/2024 10:36:35 [facility] [place] [facility] PULSE 64 02/11/2024 10:36:35 [facility] [place] RESPIRATION 02/11/2024 10:36:35 [facility] [place] [facility] SYSTOLIC BLOOD PRESSURE 164 02/09/20 24 10:01:03 [facility] [place] [facility] DIASTOLIC BLOOD PRESSURE 77 024 10:01:03 [facility] [place] [facility] PULSE OXIMETRY 98 02/09/2024 10:01:03 [facility] [place] [facility] WEIGHT 201 02/09/2024 10:01:03 [facility] [place] BMI 28kg/m2 02/09/2024 10:01:03 [facility] [place] [facility] PULSE 77 02/09/2024 10:01:03 [facility] [place] [facility] RESPIRATION 19 02/09/2024 10:01:03 [facility] [place] WEIGHT 206 08/04/2023 08:52:43 [facility] [place] [facility] BMI 29kg/m2 08/04/2023 08:52:43 [facility] [place] [facility] PAIN 5 08/04/2023 08:52:43 [facility] [place] [facility] SYSTOLIC BLOOD PRESSURE 134 05/20/19 24 09:49:47 [facility] [place] [facility] DIASTOLIC BLOOD PRESSURE 66 024 09:49:47 [facility] [place] [facility] PULSE OXIMETRY 97% 05/20/2023 09:49:47 [facility] [place] [facility] WEIGHT 206 05/20/2023 09:49:47 [facility] [place] [facility] BMI 29kg/m2 05/20/2023 09:49:47 [facility] [place] [facility] PAIN 0 05/20/2023 09:49:47 [facility] [place] [facility] TEMPERATURE 97.2 05/20/2023 09:49:47 [facility] [place] [facility] PULSE 71 05/20/2023 09:49:47 [facility] [place] [facility] RESPIRATION 18 05/20/2023 09:49:47 [facility] [place] [facility] Encounters Combined list of: 1) Encounters from Department of Veterans Affairs facilities going back up to thelast 18 months. 2) Encounters from the Department of Defense facilities going back up to 280 months. Location Location Details Encounter Type Encounter Number Reason For Visit Attending Provider ADM Date DC Date Status Disposition Source [facility] Encounter [id number] 10/12 [facility] Encounter [id number] 10/13 [facility] GROUP PSYCHOTHER APY [id number] Diagnos is: ICD-10- CM F43.12 Post-tr aumatic stress disorde r, chronic
ANN WEI 10/13 [facility] PSYTX W PT 45 MINUTES [id number] Diagnos is: ICD-10- CM F43.12 Post-tr aumatic stress disorde r, chronic
MARIA ELENA LOPEZ 10/16 [facility] GROUP PSYCHOTHER APY [id number] Diagnos is: ICD-10- CM F43.12 Post-tr aumatic stress disorde r, chronic
ANN WEI 10/20 [facility] GROUP PSYCHOTHER APY [id number] Diagnos is: ICD-10- CM F43.12 Post-tr aumatic stress disorde r, chronic
ANN WEI 10/21 [facility] [id number] 10/30 [facility] Encounter [id number] 10/30 [facility] Encounter [id number] 11/18 [facility] Encounter [id number] 12/08 [facility] En[facility] [id number] 12/15 [facility] Out[facility] Encounter [id number] 12/18 [facility] Encounter [id number] 12/22 [facility] [id number] 12/23 [facility] Encounter [id number] 01/05 [facility] PSYTX W PT W E/M 30 MIN [id number] Diagnos is: ICD-10- CM F43.12 Post-tr aumatic stress disorde r, chronic
Saurav ALEMAN KELLE B 01/13 [facility] [place] ADMIN [id number] MAYRA OSMAN 01/15 [facility] Out[facility] Encounter [id number] 01/26 [facility] Encounter [id number] 01/26 [facility] Out[facility] Encounter [id number] 02/05 [facility] CASE MGMT-ORAL HEALTH LIT [id number] Diagnos is: ICD-10- CM K03.6 Deposit s [accret ions] on teeth<b r/> Andrea SERNA 02/09 [facility] EYE EXAM&TX ESTAB PT 1/>VST [id number] Diagnos is: ICD-10- CM H25.813 Combine d forms of age-rel ated catarac t, bilater al
MARIALUISA REDDING E 04/07 [facility] FIT SPECTACLES MULTIFOCAL [id number] Diagnos is: ICD-10- CM Z46.0 Encount er for fit/adj st of spectac les and contact lenses< br/> MARIALUISA REDDING 04/08 [facility] PSYTX W PT W E/M 30 MIN [id number] Diagnos is: ICD-10- CM F41.9 Anxiety disorde r, unspeci fied
Saurav ALEMAN 04/29 [facility] OFFICE O/P EST MOD 30 MIN [id number] Diagnos is: ICD-10- CM K51.90 Ulcerat bette colitis , unspeci fied, without complic ations< br/> LINDA GARCIA 05/20 [facility] Out[facility] Encounter [id number] 06/02 [facility] Encounter [id number] 06/10 [facility] Out[facility] Encounter [id number] 07/20 [facility] Out[facility] Encounter [id number] 07/30 [facility] Out[facility] Encounter [id number] 08/03 [facility] OFFICE O/P EST MOD 30 MIN [id number] Diagnos is: ICD-10- CM 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
Saurav ALEMAN KELLE B 09/01 [facility] Encounter [id number] 09/09 [facility] Out[facility] Encounter [id number] 09/09 [facility] Out[facility] Encounter [id number] 09/23 [facility] Out[facility] Encounter [id number] 10/04 [facility] PSYCH DIAGNOSTIC EVALUATION [id number] Diagnos is: ICD-10- CM F43.12 Post-tr aumatic stress disorde r, chronic
JUDIE CRUZ 10/07 [facility] Out[facility] Encounter [id number] 10/11 [facility] Out[facility] Encounter [id number] 10/11 [facility] PSYTX W PT 45 MINUTES [id number] Diagnos is: ICD-10- CM F43.12 Post-tr aumatic stress disorde r, chronic
JUDIE CRUZ 11/02 [facility] Out[facility] Encounter [id number] JUDIE CRUZ 11/02 [facility] Out[facility] Encounter [id number] 11/25 [facility] Out[facility] Encounter [id number] 12/05 [facility] Out[facility] Encounter [id number] 12/07 [facility] PSYTX W PT 45 MINUTES [id number] Diagnos is: ICD-10- CM 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
Saurav ALEMAN 01/16 [facility] PSYTX W PT 45 MINUTES [id number] Diagnos is: ICD-10- CM K51.90 Ulcerat bette colitis , unspeci fied, without complic ations< br/> JUDIE CRUZ 01/31 [facility] Outpatient Encounter [id number]/31 [facility] OFFICE O/P EST LOW 20 MIN [id number] 1. 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
ASHUTOSH MERCEDES 02/15 [facility] Outpatient Encounter [id number] 1.02/21 [facility] Outpatient Encounter [id number] 03/23 [facility] OCCLUSAL GUARD SOFT [id number] 1. Diagnos is: ICD-10- CM K08.9 Disorde r of teeth and support ing structu res, unspeci fied
ASHUTOSH MERCEDES 03/24 [facility] Outpatient Encounter [id number] 04/03 [facility] Social History Combined list of available smoking, tobacco, and other social history from [facility] of Defense and [facility] facilities. Social History Type Response Date Comment Sourc e Tobacco smoking status [facility] VA-TOBACCO QUIT 15 YRS OR MORE 08/04/2023 [facility] History of tobacco use VA-TOBACCO FORMER USER 08/04/2023 [facility] History [facility] tobacco use VA-TOBACCO NEVER USED 08/05/2022 [facility] [facility] History of tobacco use VA-TOBACCO NEVER USED 08/22/2021 [facility] History of tobacco use VA-TOBACCO NEVER USED 04/29/2020 [facility] [place] [facility] History of tobacco use VA-TOBACCO FORMER USER 09/21/2018 [facility] [place] [facility] History of tobacco use QUIT TOBACCO USE > 7 YEARS AGO 12/31/2017 [facility] [place] [facility] History of tobacco use QUIT TOBACCO USE > 7 YEARS AGO 12/31/2016 [facility] [place] [facility] History of tobacco use QUIT TOBACCO USE 1-7 YEARS AGO 12/31/2016 [facility] History of tobacco use QUIT TOBACCO USE > 7 YEARS AGO 01/08/2016 [facility] History of tobacco use QUIT TOBACCO USE > 7 YEARS AGO 11/15/2014 quit 1975 [facility] Plan of Care List of future care activities from [facility] facilities. Additional future care activities may be listed in the Assessment and Plan section. Date/Time Care Activity Care Activity Detail Facili ty 04/17/2024 AMBULATORY - MEDICINE AMBULATORY - MEDICI NE [facility] 04/17/2024 AMBULATORY - MEDICINE AMBULATORY - MEDICI NE [facility] 05/23/2024 AMBULATORY - PSYCHIATRY AMBULATORY - PSYC HIATRY [facility] 05/24/2024 AMBULATORY - MEDICINE AMBULATORY - MEDICI NE [facility] Advance Directives List of completed, amended, or rescinded Advance Directives on record at [facility] facilities. An actual copy of the Directive is not included. Date Advance Directive Provider Source 01/01/2005 ADVANCE DIRECTIVE KLAUS PAZ [facility]
--- OUTSIDE RECORDS SUMMARY | 2024-04-11 18:48 | XMS_ITS | Encounter Summary ---
Author Name [facility] Organization [facility] Address [address] [place] [address] Care Team Providers Care Clinical Asst Name Role Phone LINDA PALOMINO Primary Care Provider Unav ailable Insurance Providers: All historical and current Section Date Range: From patient's date of to the date document was created. This section includes the names of all active insurance providers for the patient. Insurance Provider Type of Coverage Plan Name Start of Policy Coverage End of Policy Coverage Group Number Member ID Insurance Provider's Telephone Number Policy Banegas's Name Patient's Relationship to Policy Banegas [employer] PRESCRIPT ION [facility] May 03, 2018 [id number] Tracey BLISS PATIENT [employer] MENTAL HEALTH [facility] Jul 01, 2013 [id number] Tracey BLISS PATIENT [employer]IG[employer]/NALC PREFERRED PROVIDER ORGANIZAT ION (PPO) [facility] Jul 01, 2013 [id number] Tracey BLISS PATIENT [employer]/NALC PREFERRED PROVIDER ORGANIZAT ION (PPO) [facility] Jan 01, 2011 [id number] Tracey BLISS PATIENT [employer]IG[employer]/NALC PREFERRED PROVIDER ORGANIZAT ION (PPO) [facility] HEALT H BENEF Jan 01, 2011 [id number] Tracey BLISS PATIENT MEDICARE (WNR) MEDICARE (M) PART B Jul 01, 2013 PART B [id number] [phone] Tracey BLISS PATIENT MEDICARE (WNR) MEDICARE (M) PART A Jul 01, 2013 PART A [id number] Tracey BLISS PATIENT MEDICARE (WNR) MEDICARE (M) PART A Jul 01, 2013 PART A [id number] [phone] Tracey BLISS PATIENT [facility] PREFERRED PROVIDER ORGANIZAT ION (PPO) [facility] May 03, 2018 [id number] Tracey BLISS PATIENT [facility] (MED PRIME) PREFERRED PROVIDER ORGANIZAT ION (PPO) [facility] FAMIL Y Jul 01, 2013 [id number] Tracey BLISS PATIENT [facility] (MED PRIME) PREFERRED PROVIDER ORGANIZAT ION (PPO) [facility] Jul 01, 2013 [id number] Tracey BLISS PATIENT [employer] [facility] [facility] MENTAL HE[facility] -MCR A ONLY Jul 01, 2013 [id number] Tracey BLISS PATIENT [employer] [facility]* Jan 01, 2011 [id number] Tracey BLISS PATIENT Selected Encounter This section includes the information on record at NH for the Encounter. Date/Time Encounter Type Encounter Description Reason Pro vider Source Jun 02, 2023 11:46 AM Outpatient Encounter ADMIN PAT ACTIVTIES (MASNONCT) I[facility] Encounter Template Text not used by [facility] Plan of Treatment: Future Appointments (+ 6 months) and Future Tests (+/- 45 days) The Plan of Treatment section includes future care activities for the patient from all VA treatmentfacilities. This section includes future appointments and future orders which are active, pending or scheduled. Future Appointments This section includes appointments that were scheduled to occur 6 months from the date of the Encounter, up to a maximum of 20 appointments. The data comes from all [facility]. Appointment Date/Time Appointment Type Appointme nt Facility Name Jun 10, 2023 02:45 PM AMBULATORY - MEDICINE [facility] Aug 04, 2023 09:00 AM [facility] September 02, 2023 10:30 AM AMBULATORY - PSYCHIATRY [facility] September 10, 2023 06:30 AM AMBULATORY - MEDICINE [facility] Oct 08, 2023 01:00 PM AMBULATORY - PSYCHIATRY [facility] Nov 03, 2023 09:00 AM AMBULATORY PSYCHIATRY [facility] Active, Pending, and Scheduled Orders This section includes a listing of several types of active, pending, and scheduled orders, including clinic medications orders, diagnostic test orders, procedure orders and consult orders; where the start date of the order is 45 days before the date of the Encounter or 45 days after the date of theEncounter. The data comes from all [facility]. Test Date/Time Test Type Test Details Facility Name May 20, 2023 12:00 AM Laboratory - Chemi stry Order LIPID PANEL, NON FASTING BLOOD (SST-SERUM) SP [facility] Lab Results: +/- 30 days of the encounter This section includes the Chemistry and Hematology Lab Results on record with NH for the patient. Radiology Reports and Pathology Reports are provided separately, in subsequent sections. Lab Results This section contains the Chemistry/Hematology Results that were resulted 30 days before or 30 daysafter the date of the Encounter. Date/Time Source Result Type Result - Unit Interpretation Reference Range Comment Jul 01, 2023 09:01 AM [facility] FENTANYL SCREEN PANEL Specimen Type: URINE Comment: Urine with Cr <5 is diluted or substituted. Cr between 5 and 20 is very dilute. Urine with SG of 1.001 or less is diluted or substituted. SG of 1.003 or less is very dilute. Urine with a pH <3 or >11 has been adulterated and is unsuitable for testing by our current method. Urine with pH between 3 and 4 OR 10 and 11 may have been adulterated. FENTANYL CONFIRMATION NOT SENT BY LAB. Ordering Provider: HANNAH ALEMAN Report Released Date/Time: Apr 29, 2023 10:52 AM Reporting Lab: [address] [address] Performing Lab: [address] [address] FENTANYL SCREEN NONE-DETECTE D ng/mL Negative: Cutoff = 1.00 ng/mL PH, SERENA 6.0 [pH] 4-10 CREATININE, SERENA 261.96 mg/dL >20 SP.GRAVITY, SERENA 1.023 H 1.00 3-1.02 0 Jul 01, 2023 09:01 AM [facility] OPIATES SCREEN PANEL Specimen Type: URINE Comment: Urine with Cr <5 is diluted or substituted. Cr between 5 and 20 is very dilute. Urine with SG of 1.001 or less is diluted or substituted. SG of 1.003 or less is very dilute. Urine with a pH <3 or >11 has been adulterated and is unsuitable for testing by our current method. Urine with pH between 3 and 4 OR 10 and 11 may have been adulterated. Ordering Provider: HANNAH ALEMAN Report Released Date/Time: Apr 29, 2023 10:52 AM Reporting Lab: [address] [address] Performing Lab: [address] [address] OPIATES SCREEN NONE-DETECTED N one-Detec lidia, Cutoff = 300 ng/mL PH, SERENA 6.0 [pH] 4-10 CREATININE, SERENA 271.02 mg/dL >20 SP.GRAVITY, SERENA 1.023 H 1.00 3-1.02 0 Jul 01, 2023 09:01 AM [facility] ALCOHOL, ETHYL URINE PANEL Specimen Type: URINE Comment: Urine with Cr <5 is diluted or substituted. Cr between 5 and 20 is very dilute. Urine with SG of 1.001 or less is diluted or substituted. SG of 1.003 or less is very dilute. Urine with a pH <3 or >11 has been adulterated and is unsuitable for testing by our current method. Urine with pH between 3 and 4 OR 10 and 11 may have been adulterated. Ordering Provider: HANNAH ALEMAN Report Released Date/Time: Apr 29, 2023 10:52 AM Reporting Lab: [address] [address] Performing Lab: [address] [address] ALCOHOL, ETHYL URINE NONE-DETECTED mg/dL NONE-DETEC LIDIA, cutoff = 10 mg/dL PH, SERENA 6.0 [pH] 4-10 CREATININE, SERENA 271.02 mg/dL >20 SP.GRAVITY, SERENA 1.023 H 1.00 3-1.02 0 Jul 01, 2023 09:01 AM [facility] OXYCODONE SCREEN PANEL Specimen Type: URINE Comment: Urine with Cr <5 is diluted or substituted. Cr between 5 and 20 is very dilute. Urine with SG of 1.001 or less is diluted or substituted. SG of 1.003 or less is very dilute. Urine with a pH <3 or >11 has been adulterated and is unsuitable for testing by our current method. Urine with pH between 3 and 4 OR 10 and 11 may have been adulterated. Ordering Provider: HANNAH ALEMAN Report Released Date/Time: Apr 29, 2023 10:52 AM Reporting Lab: [address] [address] Performing Lab: [address] [address] OXYCODONE SCREEN NONE-DETECTED None-Detec lidia, Cutoff = 100 ng/mL PH, SERENA 6.0 [pH] 4-10 CREATININE, SERENA 271.02 mg/dL >20 SP.GRAVITY, SERENA 1.023 H 1.00 3-1.02 0 Jul 01, 2023 09:01 AM [facility] BENZODIAZEPINES SCREEN PANEL Specimen Type: URINE Comment: Urine with Cr <5 is diluted or substituted. Cr between 5 and 20 is very dilute. Urine with SG of 1.001 or less is diluted or substituted. SG of 1.003 or less is very dilute. Urine with a pH <3 or >11 has been adulterated and is unsuitable for testing by our current method. Urine with pH between 3 and 4 OR 10 and 11 may have been adulterated. Ordering Provider: HANNAH ALEMAN Report Released Date/Time: Apr 29, 2023 10:52 AM Reporting Lab: [address] [address] Performing Lab: [address] [address] BENZODIAZEPINES SCREEN NONE-DETECTED None-Detec lidia, Cutoff = 200 ng/mL PH, SERENA 6.0 [pH] 4-10 CREATININE, SERENA 271.02 mg/dL >20 SP.GRAVITY, SERENA 1.023 H 1.00 3-1.02 0 Jul 01, 2023 09:01 AM [facility] CANNABINOIDS SCREEN PANEL Specimen Type: URINE Comment: Urine with Cr <5 is diluted or substituted. Cr between 5 and 20 is very dilute. Urine with SG of 1.001 or less is diluted or substituted. SG of 1.003 or less is very dilute. Urine with a pH <3 or >11 has been adulterated and is unsuitable for testing by our current method. Urine with pH between 3 and 4 OR 10 and 11 may have been adulterated. Ordering Provider: HANNAH ALEMAN Report Released Date/Time: Apr 29, 2023 10:52 AM Reporting Lab: [address] [address] Performing Lab: [address] [address] CANNABINOIDS SCREEN NONE-DETECTED None-Detec lidia,Cutoff = 50 ng/mL PH, SERENA 6.0 [pH] 4-10 CREATININE, SERENA 271.02 mg/dL >20 SP.GRAVITY, SERENA 1.023 H 1.00 3-1.02 0 Jul 01, 2023 09:01 AM [facility] COCAINE SCREEN PANEL Specimen Type: URINE Comment: Urine with Cr <5 is diluted or substituted. Cr between 5 and 20 is very dilute. Urine with SG of 1.001 or less is diluted or substituted. SG of 1.003 or less is very dilute. Urine with a pH <3 or >11 has been adulterated and is unsuitable for testing by our current method. Urine with pH between 3 and 4 OR 10 and 11 may have been adulterated. Ordering Provider: HANNAH ALEMAN Report Released Date/Time: Apr 29, 2023 10:52 AM Reporting Lab: [facility] [address] [address] Performing Lab: [facility] [address] [facility] [address] COCAINE SCREEN NONE-DETECTED N one-Detec lidia,Cutoff = 300 ng/mL PH, SERENA 6.0 [pH] 4-10 CREATININE, SERENA 271.02 mg/dL >20 SP.GRAVITY, SERENA 1.023 H 1.00 3-1.02 0 Jul 01, 2023 08:52 AM [facility] PSA Specimen Type: SERUM No comment entered. Ordering Provider: LINDA PALOMINO Report Released Date/Time: May 20, 2023 10:17 AM Reporting Lab: [facility] [address] [address] Performing Lab: [facility] [address] [address] PSA 3.88 ng/mL 0.00-4.00 Jul 01, 2023 08:52 AM [facility] IRON & TIBC PANEL Specimen Type: SERUM No comment entered. Ordering Provider: LINDA PALOMINO Report Released Date/Time: May 20, 2023 10:17 AM Reporting Lab: [facility] [address] [address] Performing Lab: [facility] [address] [address] TIBC 312 ug/dL 204-475 IRON 126 ug/dL 40-160 Transferrin Saturation 40.4 20.0-50.0 Jul 01, 2023 08:52 AM [facility] FERRITIN Specimen Type: SERUM No comment entered. Ordering Provider: LINDA PALOMINO Report Released Date/Time: May 20, 2023 10:17 AM Reporting Lab: [facility] [address] [facility] [address] Performing Lab: [facility] [address] [facility] [address] FERRITIN 169 ng/mL 20-300 Jul 01, 2023 08:52 AM [facility] LIPID PANEL, NON FASTING Specimen Type: SERUM No comment entered. Ordering Provider: LINDA PALOMINO Report Released Date/Time: May 20, 2023 10:17 AM Reporting Lab: [facility] [address] [facility] [address] Performing Lab: [address] [address] CHOLESTEROL 198 mg/dL TRIGLYCERIDE 82 mg/dL 0-150 LDL calculated 140 mg/dL H 0-129 CHOL/HDL 4.7 HDL CHOLESTEROL 42 mg/dL 40-60 Jul 01, 2023 08:52 AM [facility] HEMOGLOBIN A1C PANEL Specimen Type: BLOOD Comment: Values obtained from A1C measurements can vary. For atypical A1C assays, a reported value of 7.0 could actually be between 6.72 and 7.28 if measured by a reference method. A reported value of 9.0 could actually be between 8.73 and 9.27. Ref: [email or web address] Ordering Provider: LINDA PALOMINO Report Released Date/Time: May 20, 2023 10:17 AM Reporting Lab: [facility] [address] [facility] [address] Performing Lab: [address] [address] HEMOGLOBIN A1C 5.6 4.0-5.6 Jul 01, 2023 08:52 AM [facility] TSH Specimen Type: SERUM No comment entered. Ordering Provider: LINDA PALOMINO Report Released Date/Time: May 20, 2023 10:17 AM Reporting Lab: [facility] [address] [facility] [address] Performing Lab: [address] [address] TSH 1.73 u[IU]/mL 0.35-5.00 Jul 01, 2023 08:52 AM [facility] BASIC METABOLIC PANEL (non-fasting) Specimen Type: SERUM No comment entered. Ordering Provider: LINDA PALOMINO Report Released Date/Time: May 20, 2023 10:17 AM Reporting Lab: [address] [address] Performing Lab: [address] [address] UREA NITROGEN 19 mg/dL 7-25 GLUCOSE 99 mg/dL 65-100 SODIUM 142 mmol/L 135-145 POTASSIUM 4.0 mmol/L 3.5-5.0 CHLORIDE 107 mmol/L 100-110 CO2 27 meq/L 20-30 CREATININE, Serum 1.08 mg/dL 0.50-1.40 eGFR(CKD-EPI 2020) 72 mL/min >60 Jul 01, 2023 08:52 AM [facility] LIVER FUNCTION Specimen Type: SERUM No comment entered. Ordering Provider: LINDA PALOMINO Report Released Date/Time: May 20, 2023 10:17 AM Reporting Lab: [address] [address] Performing Lab: [address] [address] PROTEIN,TOTAL 7.3 g/dL 6.0-8.3 ALBUMIN 3.9 g/dL 3.5-5.0 ALKALINE PHOSPHATASE 52 U/L 40-150 AST 18 U/L 5-34 ALT 17 U/L BILIRUBIN, TOTAL 0.7 mg/dL 0.2-1.2 Jul 01, 2023 08:52 AM [facility] CBC AND DIFF (AUTO) Specimen Type: BLOOD No comment entered. Ordering Provider: LINDA PALOMINO Report Released Date/Time: May 20, 2023 10:17 AM Reporting Lab: [facility] [address] [facility] [address] Performing Lab: [facility] [address] [facility] [address] WBC 4.17 10*3/uL L 4.50-11.00 RBC 4.71 10*6/uL 4.23-5.66 HGB 14.4 g/dL 12.8-17 HCT 43.4 39.2-50.4 MCV 92.1 fL 82-99 MCHC 33.2 g/dL 30.8-35.1 PLT 254 10*3/uL 140-360 RDW-CV 12.3 12.0-16.0 Willacy, Abs 0.42 10*3/uL 0.30-1.10 MCH 30.6 pg 26.2-32.6 Neut % 59.8 43.7-75.8 Lymph % 28.3 14.0-42.3 Willacy % 10.1 5.1-13.7 Eos % 1.4 0.4-6.8 Baso % 0.2 0.1-2.0 Neut, Abs 2.49 10*3/uL 2.20-7.60 Lymph, Abs 1.18 10*3/uL 1.00-3.20 Eos, Abs 0.06 10*3/uL 0.03-0.44 Baso, Abs 0.01 10*3/uL 0.01-0.13 Immature Gran % 0.2 0.0-0.7 Immature Gran, Abs 0.01 10*3/uL 0.00-0.06 Social History: Smoking Status (Most current) and Tobacco Use (All prior to encounter date) This section includes the most current, and the historical, smoking and tobacco- related health factors from the NH facility where the Encounter took place. Current Smoking Status This section includes the most current smoking, or tobacco-related health factor, from the NH facility where the Encounter took place. Date/Time Current Smoking Status Comment Facil itberto Aug 05, 2022 11:30 AM VA-TOBACCO NEVER USED [facility] Tobacco Use History This section includes a history of the smoking, or tobacco-related health factors, that were collected on or before the date of the Encounter. The data comes from the NH facility where the Encounter took place. Date/Time Smoking Status/Tobacco Use Comment F acility Aug 22, 2021 11:30 AM VA-TOBACCO NEVER USED [facility] Apr 29, 2020 10:30 AM VA-TOBACCO [facility]ED [facility] September 21, 2018 09:39 AM VA-TOBACCO FORMER USER [facility] September 21, 2018 09:39 AM VA-TOBACCO QUIT 15 YRS OR MORE [facility] Dec 31, 2017 02:50 PM QUIT TOBACCO USE > 7 YEARS AGO [facility] Dec 31, 2016 09:33 AM QUIT TOBACCO USE > 7 YEARS AGO [facility] Dec 31, 2016 09:31 AM QUIT TOBACCO USE 1 -7 YEARS AGO [facility] Jan 08, 2016 01:57 PM QUIT TOBACCO USE > 7 YEARS AGO [facility] Nov 15, 2014 10:48 AM QUIT TOBACCO USE > 7 YEARS AGO quit 1975 [facility] Advance Directives: All historical and current Section Date Range: From patient's date of to the date document was created. This section includes ALL of a patient's completed or amended [place] Advance and Rescinded Directives. The entries below indicate that a directive exists for the patient, but an actual copy is not included with this document. The data comes from all NH facilities. Date Advance Directives Provider Source Jan 01, 2005 ADVANCE DIRECTIVE KLAUS PAZ [facility] Encounter Notes: All associated encounter notes This section contains the clinical notes associated to the Encounter. Date/Time Encounter Note(s) Provider Source Jun 02, 2023 01:56 PM ADDENDUM: LOCAL TITLE: Addendum STANDARD TITLE: ADDENDUM DATE OF NOTE: JUN 02, 2023@13:56:51 ENTRY DATE: JUN 02, 2023@13:56:52 AUTHOR: REGI LANG EXP COSIGNER: URGENCY: STATUS: COMPLETED Forwarding to provider to place a new [facility] Dermatology referral. /darcy/ REGI LANG, MSN, RN, CNL PRIMARY CARE TEAM NURSE Signed: 06/02/2023 13:57 Receipt Acknowledged By: 06/02/2023 15:00 /es/ LINDA PALOMINO MD PHYSICIAN === --- Original Document --- 06/02/23 CCC: SCHEDULING ADMINISTRATION: Patient Demographics Patient Name: NED BLISS Patient Primary Phone: [phone] Patient Primary Address: [address] [place] [address] Patient : 1950 Patient Age: 72 Caller/Recipient Relation to Patient: Self Administrative Administrative Note Reason: Community Care / [place] Act Administrative Note Comments: stated, ''I have check up with Dr. Letty Jimenez on 06/10 to follow up on my Mohs operation and was told that I need a new [place] authorization.'' Requesting a call back. /es/ JUJU DAHL 1 [facility] Signed: 06/02/2023 11:46 Receipt Acknowledged By: 06/02/2023 13:57 /darcy/ OLIVER AGUAYO, RN, CNL PRIMARY CARE TEAM NURSE * AWAITING SIGNATURE * ANNA HUERTAS MICHELLE L [facility] [place] [facility] Jun 02, 2023 11:46 AM ADMINISTRATIVE NOTE: LOCAL TITLE: CCC: SCHEDULING ADMINISTRATION STANDARD TITLE: ADMINISTRATIVE NOTE DATE OF NOTE: JUN 02, 2023@11:46:45 ENTRY DATE: JUN 02, 2023@11:46:45 AUTHOR: JUJU BROWN EXP COSIGNER: URGENCY: STATUS: COMPLETED CCC: SCHEDULING ADMINISTRATION Has ADDENDA Patient Demographics Patient Name: NED BLISS Patient Primary Phone: [phone] Patient Primary Address: [address] [place] [address] Patient : 1950 Patient Age: 72 Caller/Recipient Relation to Patient: Self Administrative Administrative Note Reason: Community Care / [place] Act Administrative Note Comments: [place] stated, ''I have check up with Dr. Letty Jimenez on 06/10 to follow up on my Mohs operation and was told that I need a new [place] authorization.'' Requesting a call back. /darcy/ JUJU DAHL 1 [facility] Signed: 06/02/2023 11:46 Receipt Acknowledged By: 06/02/2023 13:57 /es/ REGI LANG, MSN, RN, CNL PRIMARY CARE TEAM NURSE 06/02/2023 15:03 /es/ Anna Huertas plant quality manager Staff Nurse 06/02/2023 ADDENDUM STATUS: COMPLETED Forwarding to provider to place a new [facility] Dermatology referral. /es/ REGI LANG MSN, RN, CNL PRIMARY CARE TEAM NURSE Signed: 06/02/2023 13:57 Receipt Acknowledged By: 06/02/2023 15:00 /es/ MD PHYSICIAN [facility]EVIN WAN [facility]
--- OUTSIDE RECORDS SUMMARY | 2024-04-11 18:48 | XMS_ITS ---
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 Name Role Phone LINDA PALOMINO Primary Care [...] Policy Banegas's Name Patient's Relationship to Policy Baengas CAREMARK PRESCRIPT ION [facility] May 03, 2018 [id number] Tracey BLISS PATIENT [employer] MENTAL HEALTH [facility] Jul 01, 2013 [id number] [facility] PATIENT CIGNA/NALC PREFERRED PROVIDER ORGANIZAT ION (PPO) [facility] Jul 01, 2013 [id number] [phone] Tracey [facility] PATIENT CIGNA/NALC PREFERRED PROVIDER ORGANIZAT ION (PPO) [facility] Jan 01, 2011 [id number] Tracey BLISS PATIENT CIGNA/NALC PREFERRED PROVIDER ORGANIZAT ION (PPO) [facility] HEALT H BENEF Jan 01, 2011 [id number] [phone] Tracey BLISS PATIENT MEDICARE (WNR) MEDICARE (M) PART B Jul 01, 2013 PART B [id number] [phone] Tracey BLISS PATIENT MEDICARE (WNR) MEDICARE (M) PART A Jul 01, 2013 PART A [id number] Tracey BLISS PATIENT MEDICARE (WNR) MEDICARE (M) PART A Jul 01, 2013 PART A [id number] [phone] Tracey BLISS PATIENT [facility] PREFERRED PROVIDER ORGANIZAT ION (PPO) [facility] May 03, 2018 [id number] Tracey BLISS PATIENT [facility] (MED PRIME) PREFERRED PROVIDER ORGANIZAT ION (PPO) [facility] FAMIL [facility] Jul 01, 2013 [id number] Tracey BLISS PATIENT [facility] (MED PRIME) PREFERRED PROVIDER ORGANIZAT ION (PPO) [facility] Jul 01, 2013 [id number] Tracey BLISS PATIENT [facility]AL [facility] -MCR A ONLY Jul 01, 2013 [id number] Tracey BLISS PATIENT [facility]* Jan 01, 2011 [id number] Tracey BLISS PATIENT Selected Encounter This section includes the information on record at [place] for the Encounter. Date/Time Encounter Type Encounter Description Reason Pro vider Source Jun 10, 2023 12:00 PM Outpatient Encounter COMMUNITY CARE CONSULT IHE Encounter Template Text not used by [...] 20 appointments. The data comes from all [place] treatment facilities. Appointment Date/Time Appointment Type Appointme nt Facility Name Aug 04, 2023 09:00 AM AMBULATORY - MEDICINE [facility] September 02, 2023 10:30 AM AMBULATORY - PSYCHIATRY [facility] September 10, 2023 06:30 AM AMBULATORY - MEDICINE [facility] Oct 08, 2023 01:00 PM AMBULATORY - PSYCHIATRY [facility] Nov 03, 2023 09:00 AM AMBULATORY PSYCHIATRY [facility] Active, Pending, and Scheduled Orders This section includes a listing of several types of active, pending, and scheduled orders, including clinic medications orders, diagnostic test orders, procedure orders and consult orders; where the start date of the order is 45 days before the date of the Encounter or 45 days after the date of theEncounter. The data comes from all [facility] facilities. Test Date/Time Test Type Test Details Facility Name May 20, 2023 12:00 AM Laboratory - Chemi stry Order LIPID PANEL, NON FASTING BLOOD (SST-SERUM) SP [facility] Lab Results: +/- 30 days of the encounter This section includes the Chemistry and Hematology Lab Results on record with [place] for the patient. Radiology Reports and Pathology Reports are provided separately, in subsequent sections. Lab Results This section contains the Chemistry/Hematology Results that were resulted 30 days before or 30 daysafter the date of the Encounter. Date/Time Source Result Type Result - Unit Interpretation Reference Range Comment Jul 01, 2023 09:01 AM [facility] FENTANYL SCREEN PANEL Specimen Type: URINE Comment: [...] Apr 29, 2023 10:52 AM Reporting Lab: [address] [address] Performing Lab: [address] [address] FENTANYL SCREEN NONE-DETECTE D ng/mL Negative: Cutoff = 1.00 ng/mL PH, SERENA 6.0 [pH] 4-10 CREATININE, SERENA 261.96 mg/dL >20 SP.GRAVITY, SERENA 1.023 H 1.00 3-1.02 0 Jul 01, 2023 09:01 AM [facility] OXYCODONE SCREEN PANEL Specimen Type: URINE Comment: [...] Apr 29, 2023 10:52 AM Reporting Lab: [address] [address] Performing Lab: [address] [address] OXYCODONE SCREEN NONE-DETECTED None-Detec lidia, Cutoff = 100 ng/mL PH, SERENA 6.0 [pH] 4-10 CREATININE, SERENA 271.02 mg/dL >20 SP.GRAVITY, SERENA 1.023 H 1.00 3-1.02 0 Jul 01, 2023 09:01 AM [facility] OPIATES SCREEN PANEL Specimen Type: URINE Comment: [...] Apr 29, 2023 10:52 AM Reporting Lab: [address] [address] Performing Lab: [address] [address] OPIATES SCREEN NONE-DETECTED N one-Detec lidia, Cutoff = 300 ng/mL PH, SERENA 6.0 [pH] 4-10 CREATININE, SERENA 271.02 mg/dL >20 SP.GRAVITY, SERENA 1.023 H 1.00 3-1.02 0 Jul 01, 2023 09:01 AM [facility] ALCOHOL, ETHYL URINE PANEL Specimen Type: URINE [...] Apr 29, 2023 10:52 AM Reporting Lab: [address] [address] Performing Lab: [address] [address] ALCOHOL, ETHYL URINE NONE-DETECTED mg/dL NONE-DETEC LIDIA, cutoff = 10 mg/dL PH, SERENA 6.0 [pH] 4-10 CREATININE, SERENA 271.02 mg/dL >20 SP.GRAVITY, SERENA 1.023 H 1.00 3-1.02 0 Jul 01, 2023 09:01 AM [facility] BENZODIAZEPINES SCREEN PANEL Specimen Type: URINE Comment: [...] Apr 29, 2023 10:52 AM Reporting Lab: [address] [address] Performing Lab: [address] [address] BENZODIAZEPINES SCREEN NONE-DETECTED None-Detec lidia, Cutoff = 200 ng/mL PH, SERENA 6.0 [pH] 4-10 CREATININE, SERENA 271.02 mg/dL >20 SP.GRAVITY, SERENA 1.023 H 1.00 3-1.02 0 Jul 01, 2023 09:01 AM [facility] CANNABINOIDS SCREEN PANEL Specimen Type: URINE Comment: [...] Apr 29, 2023 10:52 AM Reporting Lab: [address] [address] Performing Lab: [address] [address] CANNABINOIDS SCREEN NONE-DETECTED None-Detec lidia,Cutoff = 50 ng/mL PH, SERENA 6.0 [pH] 4-10 CREATININE, SERENA 271.02 mg/dL >20 SP.GRAVITY, SERENA 1.023 H 1.00 3-1.02 0 Jul 01, 2023 09:01 AM [facility] COCAINE SCREEN PANEL Specimen Type: URINE Comment: [...] Apr 29, 2023 10:52 AM Reporting [facility]: [facility] [address] [address] Performing Lab: [facility] [address] [address] COCAINE SCREEN NONE-DETECTED N one-Detec lidia,Cutoff = 300 ng/mL PH, SERENA 6.0 [pH] 4-10 CREATININE, SERENA 271.02 mg/dL >20 SP.GRAVITY, SERENA 1.023 H 1.00 3-1.02 0 Jul 01, 2023 08:52 AM [facility] PSA Specimen Type: SERUM No comment entered. Ordering Provider: LINDA PALOMINO Report Released Date/Time: May 20, 2023 10:17 AM Reporting Lab: [address] [address] Performing Lab: [facility] [address] PSA 3.88 ng/mL 0.00-4.00 Jul 01, 2023 08:52 AM [facility] IRON & TIBC PANEL Specimen Type: SERUM No comment entered. Ordering Provider: LINDA PALOMINO Report Released Date/Time: May 20, 2023 10:17 AM Reporting Lab: [address] [address] Performing Lab: [facility] [address] [address] TIBC 312 ug/dL 204-475 IRON 126 ug/dL 40-160 Transferrin Saturation 40.4 20.0-50.0 Jul 01, 2023 08:52 AM [facility] FERRITIN Specimen Type: SERUM No comment entered. Ordering Provider: LINDA PALOMINO Report Released Date/Time: May 20, 2023 10:17 AM Reporting Lab: [address] [address] Performing Lab: [facility] [place] [facility] [address] [facility] [address] FERRITIN 169 ng/mL 20-300 Jul 01, 2023 08:52 AM [facility] LIPID PANEL, NON FASTING Specimen Type: SERUM No comment entered. Ordering Provider: LINDA PALOMINO Report Released Date/Time: May 20, 2023 10:17 AM Reporting Lab: [facility] [place] [facility] [address] [facility] [address] Performing Lab: [facility] [address] [facility] [address] CHOLESTEROL 198 mg/dL TRIGLYCERIDE 82 mg/dL 0-150 LDL calculated 140 mg/dL H 0-129 CHOL/HDL 4.7 HDL CHOLESTEROL 42 mg/dL 40-60 Jul 01, 2023 08:52 AM [facility] HEMOGLOBIN A1C PANEL Specimen Type: BLOOD Comment: [...] May 20, 2023 10:17 AM Reporting Lab: [facility] [address] [facility] [address] Performing Lab: [facility] [address] [facility] [address] HEMOGLOBIN A1C 5.6 4.0-5.6 Jul 01, 2023 08:52 AM [facility] TSH Specimen Type: SERUM No comment entered. Ordering Provider: LINDA PALOMINO Report Released Date/Time: May 20, 2023 10:17 AM Reporting Lab: [facility] [address] [facility] [address] Performing Lab: [facility] [address] [facility] [address] TSH 1.73 u[IU]/mL 0.35-5.00 Jul 01, 2023 08:52 AM [facility] BASIC METABOLIC PANEL (non-fasting) Specimen Type: SERUM No comment entered. Ordering Provider: LINDA PALOMINO Report Released Date/Time: May 20, 2023 10:17 AM Reporting Lab: [address] [address] Performing Lab: [address] [address] UREA NITROGEN 19 mg/dL 7-25 GLUCOSE 99 mg/dL 65-100 SODIUM 142 mmol/L 135-145 POTASSIUM 4.0 mmol/L 3.5-5.0 CHLORIDE 107 mmol/L 100-110 CO2 27 meq/L 20-30 CREATININE, Serum 1.08 mg/dL 0.50-1.40 eGFR(CKD-EPI 2020) 72 mL/min >60 Jul 01, 2023 08:52 AM [facility] LIVER FUNCTION Specimen Type: SERUM No comment entered. Ordering Provider: LINDA PALOMINO Report Released Date/Time: May 20, 2023 10:17 AM Reporting Lab: [address] [address] Performing Lab: [address] [address] PROTEIN,TOTAL 7.3 g/dL 6.0-8.3 ALBUMIN 3.9 g/dL 3.5-5.0 ALKALINE PHOSPHATASE 52 U/L 40-150 AST 18 U/L 5-34 ALT 17 U/L BILIRUBIN, TOTAL 0.7 mg/dL 0.2-1.2 Jul 01, 2023 08:52 AM [facility] CBC AND DIFF (AUTO) Specimen Type: BLOOD No comment entered. Ordering Provider: LINDA PALOMINO Report Released Date/Time: May 20, 2023 10:17 AM Reporting Lab: [address] [address] Performing Lab: [facility] [address] [facility] [address] WBC 4.17 10*3/uL L 4.50-11.00 RBC 4.71 10*6/uL 4.23-5.66 HGB 14.4 g/dL 12.8-17 HCT 43.4 39.2-50.4 MCV 92.1 fL 82-99 MCHC 33.2 g/dL 30.8-35.1 PLT 254 10*3/uL 140-360 RDW-CV 12.3 12.0-16.0 [place], Abs 0.42 10*3/uL 0.30-1.10 MCH 30.6 pg 26.2-32.6 Neut % 59.8 43.7-75.8 Lymph % 28.3 14.0-42.3 [place] % 10.1 5.1-13.7 Eos % 1.4 0.4-6.8 [...] and tobacco- related health factors from the [place] facility where the Encounter took place. Current Smoking Status This section includes the most current smoking, or tobacco-related health factor, from the [place] facility where the Encounter took place. Date/Time Current Smoking Status Comment Nora pardoy Aug 05, 2022 11:30 AM VA-TOBACCO NEVER USED [facility] Tobacco Use History This section includes a history of the smoking, or tobacco-related health factors, that were collected on or before the date of the Encounter. The data comes from the [place] facility where the Encounter took place. Date/Time Smoking Status/Tobacco Use Comment Len kiran Aug 22, 2021 11:30 AM VA-TOBACCO NEVER USED [facility] [place] [facility] Apr 29, 2020 10:30 AM VA-TOBACCO NEVER USED [facility] [place] [facility] September 21, 2018 09:39 AM VA-TOBACCO FORMER USER IN [facility] [place] [place] [facility] September 21, 2018 09:39 AM VA-TOBACCO QUIT 15 YRS OR MORE [facility] Dec 31, 2017 02:50 PM QUIT TOBACCO USE > 7 YEARS AGO IN [place] [facility] Dec 31, 2016 09:33 AM QUIT TOBACCO USE > 7 YEARS AGO IN [facility] Dec 31, 2016 09:31 AM QUIT TOBACCO USE 1 -7 YEARS AGO [facility] Jan 08, 2016 01:57 PM QUIT TOBACCO USE > 7 YEARS AGO [facility] Nov 15, 2014 10:48 AM QUIT TOBACCO USE > 7 YEARS AGO quit [facility] Advance Directives: All historical and current Section Date Range: From patient's date of to the date document was created. This section includes ALL of a patient's completed or amended [place] Advance and Rescinded Directives. The entries below indicate that a directive exists for the patient, but an actual copy is not included with this document. The data comes from all [place] facilities. Date Advance Directives Provider Source Jan 01, 2005 ADVANCE DIRECTIVE KLAUS PAZ ES [facility] Encounter Notes: All associated encounter notes This section contains the clinical notes associated to the Encounter. Date/Time Encounter Note(s) Provider Source Jun 10, 2023 12:00 PM NONVA CONSULT: LOCAL TITLE: COMMUNITY CARE-CONSULT RESULT NOTE STANDARD TITLE: NONVA CONSULT DATE OF NOTE: JUN 10, 2023@12:00 ENTRY DATE: JUN 29, 2023@12:54:21 AUTHOR: BROOKLYN AQUINO EXP COSIGNER: URGENCY: STATUS: COMPLETED VistA Imaging - Scanned Document SCANNED DOCUMENT SIGNATURE NOT REQUIRED Electronically Filed: 06/29/2023 by: BROOKLYN AQUINO TRACK PRODUCTION ENGINEER BROOKLYN AQUINO [facility]
--- OUTSIDE RECORDS SUMMARY | 2024-04-11 18:48 | XMS_ITS | Encounter Summary ---
Author Name [facility] [place] Organization [facility] [place] Address [address] [place] [id number] Care Team Providers Care Medical Videographer Name Role Phone LINDA PALOMINO Primary Care [...] Relationship to Policy Banegas CAREMARK PRESCRIPT ION [facility] May 03, 2018 [id number] Tracey BLISS PATIENT [facility] [facility] Jul 01, 2013 [id number] Tracey BLISS PATIENT [employer]/NALC PREFERRED PROVIDER ORGANIZAT ION (PPO) [facility] Jul 01, 2013 [id number] [phone] Tracey BLISS PATIENT [employer] PREFERRED PROVIDER ORGANIZAT ION (PPO) [facility] Jan 01, 2011 [id number] [phone] Tracey BLISS PATIENT [employer] PREFERRED PROVIDER ORGANIZAT ION (PPO) [facility] HEALT H BENEF Jan 01, 2011 [id number] [phone] Tracey BLISS PATIENT MEDICARE (WNR) MEDICARE (M) PART B Jul 01, 2013 PART B [id number] Tracey BLISS PATIENT MEDICARE (WNR) MEDICARE (M) PART A Jul 01, 2013 PART A [id number] Tracey BLISS PATIENT MEDICARE (WNR) MEDICARE (M) PART A Jul 01, 2013 PART A [id number] Tracey BLISS PATIENT [facility] PREFERRED PROVIDER ORGANIZAT ION (PPO) [facility] May 03, 2018 [id number] Tracey BLISS PATIENT [facility] (MED PRIME) PREFERRED PROVIDER ORGANIZAT ION (PPO) [facility] FAMIL [facility] Jul 01, 2013 [id number] Tracey BLISS PATIENT [facility] (MED PRIME) PREFERRED PROVIDER ORGANIZAT ION (PPO) [facility] Jul 01, 2013 [id number] Tracey BLISS PATIENT [facility] -MCR A ONLY Jul 01, 2013 [id number] Tracey BLISS PATIENT [facility]* Jan 01, 2011 [id number] Tracey BLISS PATIENT Selected Encounter This section includes the information on record at [place] for the Encounter. Date/Time Encounter Type Encounter Description Reason Pro vider Source Jul 21, 2023 12:36 PM Outpatient Encounter ADMIN PAT ACTIVTIES (MASNONCT) I[facility] Encounter Template Text not used by [place] Plan of Treatment: Future Appointments (+ 6 [...] 20 appointments. The data comes from all [place] treatment facilities. Appointment Date/Time Appointment Type Appointme nt Facility Name Aug 04, 2023 09:00 AM [facility] September 02, 2023 10:30 AM AM[facility]ULATORY [place] [facility] [place] [facility] September 10, 2023 06:30 AM [facility] Oct 08, 2023 01:00 PM AM[facility]ORY [facility]RY [facility] Nov 03, 2023 09:00 AM [facility] [place] [facility] Jan 11, 2024 10:00 AM AM[facility] Jan 17, 2024 10:30 AM [facility] Lab Results: +/- 30 days of the encounter This section includes the Chemistry and Hematology Lab Results on record with [place] for the patient. Radiology Reports and Pathology Reports are provided separately, in subsequent sections. Lab Results This section contains the Chemistry/Hematology Results that were resulted 30 days before or 30 daysafter the date of the Encounter. Date/Time Source Result Type Result - Unit Interpretation Reference Range Comment Jul 01, 2023 09:01 AM [facility] FENTANYL SCREEN PANEL Specimen Type: URINE Comment: [...] Apr 29, 2023 10:52 AM Reporting Lab: [address] [address] Performing Lab: [address] [address] FENTANYL SCREEN NONE-DETECTE D ng/mL Negative: Cutoff = 1.00 ng/mL PH, SERENA 6.0 [pH] 4-10 CREATININE, SERENA 261.96 mg/dL >20 SP.GRAVITY, SERENA 1.023 H 1.00 3-1.02 0 Jul 01, 2023 09:01 AM [facility] OXYCODONE SCREEN PANEL Specimen Type: URINE Comment: [...] Apr 29, 2023 10:52 AM Reporting Lab: [address] [address] Performing Lab: [address] [address] OXYCODONE SCREEN NONE-DETECTED None-Detec lidia, Cutoff = 100 ng/mL PH, SERENA 6.0 [pH] 4-10 CREATININE, SERNEA 271.02 mg/dL >20 SP.GRAVITY, SERENA 1.023 H 1.00 3-1.02 0 Jul 01, 2023 09:01 AM [facility] OPIATES SCREEN PANEL Specimen Type: URINE Comment: [...] Apr 29, 2023 10:52 AM Reporting Lab: [address] [address] Performing Lab: [address] [address] OPIATES SCREEN NONE-DETECTED N one-Detec lidia, Cutoff = 300 ng/mL PH, SERENA 6.0 [pH] 4-10 CREATININE, SERENA 271.02 mg/dL >20 SP.GRAVITY, SERENA 1.023 H 1.00 3-1.02 0 Jul 01, 2023 09:01 AM [facility] ALCOHOL, ETHYL URINE PANEL Specimen Type: URINE [...] Apr 29, 2023 10:52 AM Reporting Lab: [address] [address] Performing Lab: [address] [address] ALCOHOL, ETHYL URINE NONE-DETECTED mg/dL NONE-DETEC LIDIA, cutoff = 10 mg/dL PH, SERENA 6.0 [pH] 4-10 CREATININE, SERENA 271.02 mg/dL >20 SP.GRAVITY, SERENA 1.023 H 1.00 3-1.02 0 Jul 01, 2023 09:01 AM [facility] BENZODIAZEPINES SCREEN PANEL Specimen Type: URINE Comment: [...] Apr 29, 2023 10:52 AM Reporting Lab: [address] [address] Performing Lab: [address] [address] BENZODIAZEPINES SCREEN NONE-DETECTED None-Detec lidia, Cutoff = 200 ng/mL PH, SERENA 6.0 [pH] 4-10 CREATININE, SERENA 271.02 mg/dL >20 SP.GRAVITY, SERENA 1.023 H 1.00 3-1.02 0 Jul 01, 2023 09:01 AM [facility] CANNABINOIDS SCREEN PANEL Specimen Type: URINE Comment: [...] Apr 29, 2023 10:52 AM Reporting Lab: [address] [address] Performing Lab: [address] [address] CANNABINOIDS SCREEN NONE-DETECTED None-Detec lidia,Cutoff = 50 ng/mL PH, SERENA 6.0 [pH] 4-10 CREATININE, SERENA 271.02 mg/dL >20 SP.GRAVITY, SERENA 1.023 H 1.00 3-1.02 0 Jul 01, 2023 09:01 AM [facility] COCAINE SCREEN PANEL Specimen Type: URINE Comment: [...] Apr 29, 2023 10:52 AM Reporting Lab: [address] [address] Performing Lab: [address] [place] [address] COCAINE SCREEN NONE-DETECTED N one-Detec lidia,Cutoff = 300 ng/mL PH, SERENA 6.0 [pH] 4-10 CREATININE, SERENA 271.02 mg/dL >20 SP.GRAVITY, SERENA 1.023 H 1.00 3-1.02 0 Jul 01, 2023 08:52 AM [facility] PSA Specimen Type: SERUM No comment entered. Ordering Provider: LINDA PALOMINO Report Released Date/Time: May 20, 2023 10:17 AM Reporting Lab: [address] [address] Performing Lab: [address] [address] PSA 3.88 ng/mL 0.00-4.00 Jul 01, 2023 08:52 AM [facility] IRON & TIBC PANEL Specimen Type: SERUM No comment entered. Ordering Provider: LINDA PALOMINO Report Released Date/Time: May 20, 2023 10:17 AM Reporting Lab: [address] [address] Performing Lab: [address] [address] TIBC 312 ug/dL 204-475 IRON 126 ug/dL 40-160 Transferrin Saturation 40.4 20.0-50.0 Jul 01, 2023 08:52 AM [facility] FERRITIN Specimen Type: SERUM No comment entered. Ordering Provider: LINDA PALOMINO Report Released Date/Time: May 20, 2023 10:17 AM Reporting Lab: [address] [address] Performing Lab: [address] [address] FERRITIN 169 ng/mL 20-300 Jul 01, 2023 08:52 AM [facility] LIPID PANEL, NON FASTING Specimen Type: SERUM No comment entered. Ordering Provider: LINDA PALOMINO Report Released Date/Time: May 20, 2023 10:17 AM Reporting Lab: [facility] [address] [facility] [address] Performing Lab: [facility] [address] [facility] [address] CHOLESTEROL 198 mg/dL TRIGLYCERIDE 82 mg/dL 0-150 LDL calculated 140 mg/dL H 0-129 CHOL/HDL 4.7 HDL CHOLESTEROL 42 mg/dL 40-60 Jul 01, 2023 08:52 AM [facility] HEMOGLOBIN A1C PANEL Specimen Type: BLOOD Comment: [...] May 20, 2023 10:17 AM Reporting Lab: [facility] [address] [facility] [address] Performing Lab: [facility] [address] [facility] [address] HEMOGLOBIN A1C 5.6 4.0-5.6 Jul 01, 2023 08:52 AM [facility] TSH Specimen Type: SERUM No comment entered. Ordering Provider: LINDA PALOMINO Report Released Date/Time: May 20, 2023 10:17 AM Reporting Lab: [facility] [address] [facility] [address] Performing Lab: [facility] [address] [facility] [address] TSH 1.73 u[IU]/mL 0.35-5.00 Jul 01, 2023 08:52 AM [facility] BASIC METABOLIC PANEL (non-fasting) Specimen Type: SERUM No comment entered. Ordering Provider: LINDA PALOMINO Report Released Date/Time: May 20, 2023 10:17 AM Reporting Lab: [facility] [address] [facility] [address] Performing Lab: [address] [address] UREA NITROGEN 19 mg/dL 7-25 GLUCOSE 99 mg/dL 65-100 SODIUM 142 mmol/L 135-145 POTASSIUM 4.0 mmol/L 3.5-5.0 CHLORIDE 107 mmol/L 100-110 CO2 27 meq/L 20-30 CREATININE, Serum 1.08 mg/dL 0.50-1.40 eGFR(CKD-EPI 2020) 72 mL/min >60 Jul 01, 2023 08:52 AM [facility] LIVER FUNCTION Specimen Type: SERUM No comment entered. Ordering Provider: LINDA PALOMINO Report Released Date/Time: May 20, 2023 10:17 AM Reporting Lab: [address] [address] Performing Lab: [address] [address] PROTEIN,TOTAL 7.3 g/dL 6.0-8.3 ALBUMIN 3.9 g/dL 3.5-5.0 ALKALINE PHOSPHATASE 52 U/L 40-150 AST 18 U/L 5-34 ALT 17 U/L BILIRUBIN, TOTAL 0.7 mg/dL 0.2-1.2 Jul 01, 2023 08:52 AM [facility] CBC AND DIFF (AUTO) Specimen Type: BLOOD No comment entered. Ordering Provider: LINDA PALOMINO Report Released Date/Time: May 20, 2023 10:17 AM Reporting Lab: [address] [address] Performing Lab: [address] [address] WBC 4.17 10*3/uL L 4.50-11.00 RBC 4.71 10*6/uL 4.23-5.66 HGB 14.4 g/dL 12.8-17 HCT 43.4 39.2-50.4 MCV 92.1 fL 82-99 MCHC 33.2 g/dL 30.8-35.1 PLT 254 10*3/uL 140-360 RDW-CV 12.3 12.0-16.0 Hendricks, Abs 0.42 10*3/uL 0.30-1.10 MCH 30.6 pg 26.2-32.6 Neut % 59.8 43.7-75.8 Lymph % 28.3 14.0-42.3 Hendricks % 10.1 5.1-13.7 Eos % 1.4 0.4-6.8 [...] and tobacco- related health factors from the [place] facility where the Encounter took place. Current Smoking Status This section includes the most current smoking, or tobacco-related health factor, from the [place] facility where the Encounter took place. Date/Time Current Smoking Status Comment Nora mclaughlin Aug 05, 2022 11:30 AM VA-TOBACCO NEVER USED [facility] Tobacco Use History This section includes a history of the smoking, or tobacco-related health factors, that were collected on or before the date of the Encounter. The data comes from the [place] facility where the Encounter took place. Date/Time Smoking Status/Tobacco Use Comment Len kiran Aug 22, 2021 11:30 AM VA-TOBACCO NEVER USED [place] [facility] [facility] Apr 29, 2020 10:30 AM VA-TOBACCO NEVER USED [place] [facility] [place] [facility] September 21, 2018 09:39 AM VA-TOBACCO FOR[facility] USER [facility] September 21, 2018 09:39 AM VA-TOBACCO QUIT 15 YRS OR MORE [facility] Dec 31, 2017 02:50 PM QUIT TOBACCO USE > 7 YEARS AGO [facility] [place] [facility] Dec 31, 2016 09:33 AM QUIT TOBACCO USE > 7 YEARS AGO [facility] Dec 31, 2016 09:31 AM QUIT TOBACCO USE 1 -7 YEARS AGO [facility] Jan 08, 2016 01:57 PM QUIT TOBACCO USE > 7 YEARS AGO [facility] Nov 15, 2014 10:48 AM QUIT TOBACCO USE > 7 YEARS AGO quit 1975 [facility] Advance Directives: All historical and current Section Date Range: From patient's date of to the date document was created. This section includes ALL of a patient's completed or amended [place] Advance and Rescinded Directives. The entries below indicate that a directive exists for the patient, but an actual copy is not included with this document. The data comes from all [place] facilities. Date Advance Directives Provider Source Jan 01, 2005 ADVANCE DIRECTIVE KLAUS PAZ ES [facility] Encounter Notes: All associated encounter notes This section contains the clinical notes associated to the Encounter. Date/Time Encounter Note(s) Provider Source Jul 21, 2023 12:36 PM ADMINISTRATIVE NOT E: LOCAL TITLE: CCC: SCHEDULING ADMINISTRATION STANDARD TITLE: ADMINISTRATIVE NOTE DATE OF NOTE: JUL 21, 2023@12:36:38 ENTRY DATE: JUL 21, 2023@12:36:38 AUTHOR: SHAGGY FOSTER COSIGNER: URGENCY: STATUS: COMPLETED CCC: SCHEDULING ADMINISTRATION Has ADDENDA Patient Demographics Patient Name: NED BLISS Patient Primary Phone: [phone] Patient Primary [address] [address] [place] [id number] Patient : 1950 Patient Age: 72 Caller/Recipient Relation to Patient: Self Administrative Administrative Note Reason: Other Administrative Note Comments: is requesting a phone call back, ''I am calling today to ask about getting my most recent labs faxed to my non [facility] primary care provider. I have tried to call Release of Information multiple times now and I keep getting a message saying that the number is not in service, I have been transferred over to release of information from within the hospital and I still get the message that the number is not in service and the phone hangs up on me. I just need to bring a copy or have a copy sent to my non [facility] primary care provider Dr. Greer, his phone number is, and his fax number is [phone]. Please call me back to further discuss, thank you.'' /darcy/ SHAGGY FOSTER Signed: 07/21/2023 12:36 Receipt Acknowledged By: 07/21/2023 13:32 /darcy/ JEMAL MCKENNA [employer] Faculty Member 07/21/2023 13:24 /moe Cho RN Primary Care Staff Nurse 07/21/2023 ADDENDUM STATUS: COMPLETED RC to [facility] at listed number- labs didnt get faxed previsoulsy and so were done today. Confirmed they have been received and a hard copy will be mailed to [facility]. /moe Cho RN Primary Care Staff Nurse Signed: 07/21/2023 13:22 SHAGGY FOSTER DE [facility]
--- OUTSIDE RECORDS SUMMARY | 2024-04-11 18:48 | XMS_ITS ---
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 Aircraft Name Role Phone LINDA PALOMINO Primary Care [...] Relationship to Policy Banegas [facility] May 03, 2018 [id number] Tracey BLISS PATIENT [employer] [facility] [facility] Jul 01, 2013 [id number] Tracey BLISS PATIENT CIGNA/NALC PREFERRED PROVIDER ORGANIZAT ION (PPO) [facility] Jul 01, 2013 [id number] [phone] Tracey BLISS PATIENT [employer]/NALC PREFERRED PROVIDER ORGANIZAT ION (PPO) [facility] Jan 01, 2011 [id number] [phone] Tracey BLISS PATIENT CIG[employer]/NALC PREFERRED PROVIDER ORGANIZAT ION (PPO) [facility] HEALT H BENEF Jan 01, 2011 [id number] [phone] Tracey BLISS PATIENT MEDICARE (WNR) MEDICARE (M) PART B Jul 01, 2013 PART B [id number] Tracey BLISS PATIENT MEDICARE (WNR) MEDICARE (M) PART A Jul 01, 2013 PART A [id number] Tracey BLISS PATIENT MEDICARE (WNR) MEDICARE (M) PART A Jul 01, 2013 PART A [id number] [phone] Tracey BLISS PATIENT [facility] PREFERRED PROVIDER ORGANIZAT ION (PPO) [facility] May 03, 2018 32 [id number] [phone] Tracey BLISS PATIENT [facility] (MED PRIME) PREFERRED PROVIDER ORGANIZAT ION (PPO) [facility] FAMIL [facility] Jul 01, 2013 [id number] Tracey BLISSH PATIENT [facility] (MED PRIME) PREFERRED PROVIDER ORGANIZAT ION (PPO) [facility] Jul 01, 2013 [id number] Tracey BLISSH PATIENT [facility] -MCR A ONLY Jul 01, 2013 [id number] Tracey BLISS PATIENT [facility]* Jan 01, 2011 [id number] Tracey BLISS PATIENT Selected Encounter This section includes the information on record at [place] for the Encounter. Date/Time Encounter Type Encounter Description Reason Provider Source May 20, 2023 10:00 AM OFFICE O/P EST MOD 30 MIN PRIMARY CARE/MEDICINE ICD-10-CM K51.90 Ulcerative colitis, unspecified, without complications LINDA PALOMINO [facility] Encounter Template Text not used by [place] Assessments - Encounter Diagnoses This section includes the primary and secondary diagnoses documented for the Encounter. Date/Time Primary/Secondary Diagnosis Diagnosis Name Provider Source Jun 02, 2023 10:11 AM PRIMARY Ulcerative colitis, unspecified, without complications LINDA PALOMINO [place] [facility] Jun 02, 2023 10:11 AM SECONDARY Allergic rhinitis, unspecified OmayraOscarLINDA MACK [facility] Plan of Treatment: Future Appointments (+ 6 months) and Future Tests (+/- 45 days) The Plan of Treatment section includes future care activities for the patient from all [place] [facility]. This section includes future appointments and future orders which are active, pending or scheduled. Future Appointments This section includes appointments that were scheduled to occur 6 months from the date of the Encounter, up to a maximum of 20 appointments. The data comes from all [facility]. Appointment Date/Time Appointment Type Appointme nt Facility Name Jun 10, 2023 02:45 PM AMBULATORY - MEDICINE [facility] Aug 04, 2023 09:00 AM AMBULATORY MEDICINE [facility] September 02, 2023 10:30 AM AMBULATORY - PSYCHIATRY [facility] September 10, 2023 06:30 AM [facility] Oct 08, 2023 01:00 PM AMBULATORY - PSYCHIATRY [facility] Nov 03, 2023 09:00 AM AMBULATORY PSYCHIATRY [facility] Active, Pending, and Scheduled Orders This section includes a listing of several types of active, pending, and scheduled orders, including clinic medications orders, diagnostic test orders, procedure orders and consult orders; where the start date of the order is 45 days before the date of the Encounter or 45 days after the date of theEncounter. The data comes from all [facility]. Test Date/Time Test Type Test Details Facility Name May 20, 2023 12:00 AM Laboratory - Chemi stry Order LIPID PANEL, NON FASTING BLOOD (SST-SERUM) [facility] Vital Signs: All taken on the encounter date This section contains inpatient and outpatient Vital Signs collected on the date of the Encounter. Date/Time Temperature Pulse Blood Pressure Respiratory Rate SP02 Pain Height Weight Body Mass Index Source May 20, 2023 09:49 AM 97.2 F 71 /min 134/66 mm[Hg] 18 /min 97 % 0 206 lb 29 [facility] Social History: Smoking Status (Most current) and Tobacco Use (All prior to encounter date) This section includes the most current, and the historical, smoking and tobacco- related health factors from the [place] facility where the Encounter took place. Current Smoking Status This section includes the most current smoking, or tobacco-related health factor, from the [place] facility where the Encounter took place. Date/Time Current Smoking Status Comment Facil ity Aug 05, 2022 11:30 AM [facility]TOBACCO [facility] Tobacco Use History This section includes a history of the smoking, or tobacco-related health factors, that were collected on or before the date of the Encounter. The data comes from the [place] facility where the Encounter took place. Date/Time Smoking Status/Tobacco Use Comment F [facility] Aug 22, 2021 11:30 AM VA-TOBACCO NEVER USED [place] [facility] [place] [facility] Apr 29, 2020 10:30 AM VA-TOBACCO NEVER USED [place] [facility] [place] [facility] September 21, 2018 09:39 AM VA-TOBACCO FORMER USER ND [facility] [place] [facility] September 21, 2018 09:39 AM VA-TOBACCO QUIT 15 YRS OR MORE [place] [facility] [place] [facility] Dec 31, 2017 02:50 PM QUIT TOBACCO USE > 7 YEARS AGO [facility] [place] [facility] Dec 31, 2016 09:33 AM QUIT TOBACCO USE > 7 YEARS AGO [place] [facility] [place] [facility] Dec 31, 2016 09:31 AM QUIT TOBACCO USE 1 -7 YEARS AGO ND [facility] [place] [facility] Jan 08, 2016 01:57 PM QUIT TOBACCO USE > 7 YEARS AGO [place] [facility] [place] [facility] Nov 15, 2014 10:48 AM QUIT TOBACCO USE > 7 YEARS AGO quit [facility] Advance Directives: All historical and current Section Date Range: From patient's date of to the date document was created. This section includes ALL of a patient's completed or amended [place] Advance and Rescinded Directives. The entries below indicate that a directive exists for the patient, but an actual copy is not included with this document. The data comes from all [place] facilities. Date Advance Directives Provider Source Jan 01, 2005 ADVANCE DIRECTIVE KLAUS PAZ [facility] Encounter Notes: All associated encounter notes This section contains the clinical notes associated to the Encounter. Date/Time Encounter Note(s) Provider Source May 20, 2023 09:51 AM PREVENTIVE MEDICINE NURSING NOTE: LOCAL TITLE: CLINICAL REMINDERS/NURSING STANDARD TITLE: PREVENTIVE MEDICINE NURSING NOTE DATE OF NOTE: MAY 20, 2023@09:51 ENTRY DATE: MAY 20, 2023@09:52 AUTHOR: ELIAS CARRANZA EXP COSIGNER: URGENCY: STATUS: COMPLETED Herpes Zoster (Shingles) Vaccine: The patient declines to receive the recommended dose of zoster (shingles) vaccine. Immunization: ZOSTER RECOMBINANT Refusal Reason: PATIENT DECISION Patient refuses all immunization(s) in the ZOSTER group Date Documented: 05/20/23 09:52 /moe CARRANZA Registered Nurse Signed: 05/20/2023 09:52 ELIAS CARRANZA [facility] May 20, 2023 09:45 AM PREVENTIVE MEDICINE NURSING NOTE: LOCAL TITLE: CLINICAL REMINDERS/NURSING STANDARD TITLE: PREVENTIVE MEDICINE NURSING NOTE DATE OF NOTE: MAY 20, 2023@09:45 ENTRY DATE: MAY 20, 2023@09:45:55 AUTHOR: ELIAS CARRANZA EXP COSIGNER: URGENCY: STATUS: COMPLETED HIV Screening: Patient has been offered HIV testing and has declined. I have explained that HIV testing is recommended for all adults, even if all risk factors are absent. The patient was educated on the risk of delayed screening. COVID-19 Immunization: Refused Moderna Monovalent COVID-19 vaccine Immunization: COVID-19 (MODERNA), MRNA, LNP-S, PF, 50 MCG/0.5 ML (AGES 12+ YEARS) Refusal Reason: PATIENT DECISION Patient refuses all immunization(s) in the COVID-19 group Date Documented: 05/20/23 09:47 /moe CARRANZA Registered Nurse Signed: 05/20/2023 09:48 ELIAS CARRANZA [facility] May 20, 2023 09:27 AM PHYSICIAN NOTE: LOCAL TITLE: NOTE STANDARD TITLE: PHYSICIAN NOTE DATE OF NOTE: MAY 20, 2023@09:27 ENTRY DATE: MAY 20, 2023@09:27:42 AUTHOR: DANIEL PALOMINO EXP COSIGNER: URGENCY: STATUS: COMPLETED HISTORY OF PRESENT ILLNESS: = NED Len BLISS, is a 72 yo WHITE MALE [place] who presents [facility] the [place] [facility] CC. colitis HPI. this vet returns to [place] PCP clinic to f/u for colitis. he feels well, denies abd pain, fevers and his weight is stable over past year. he finds that his rectal pain can be controlled with suppositories for inflammation/he uses mesalamine and for his hemorrhoids/vet uses phenylephrine supp also. He had colon polyps at last C scope in 2020 and his GI provider plans to repeat C scope in Sep, 2023. vet also has nasal congestion and uses nasal steroid and asks for ear wax drops to help with minor excessive wax which he has had intermittently in past. SH. nonsmoker Active problems - Computerized Problem List is the source for the followin. Basal cell carcinoma of skin 2. Hyperlipidemia (SCT [id number]) 3. Anxiety 4. Hemorrhoid 5. Under care of multiple providers 6. History of surgery 7. Ulcerative colitis 8. Posttraumatic stress disorder 9. Chronic sinusitis 10. Neck pain 11. 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 COMBAT SERVICE INDICATED: No SERVICE CONNECTED % - 100 VITAL SIGNS: Temperature 98 F [36.7 C] (08/05/2022 11:47) Blood Pressure 160/71 (08/11/2022 11:42) Pulse 64 (08/11/2022 11:42) Respiration 20 (08/05/2022 11:47) Pain 0 (08/05/2022 11:47) BMI BMI: 28.4 Weight 203 lb [92.08 kg] (08/05/2022 11:47) Pulse Oximetry 95% (08/11/2022 11:42) Review of Systems: CONSTITUTIONAL: No fever, no loss of appetite ENT: No sore throat, no cough CARDIOVASCULAR: No chest pain, no palpitations RESPIRATORY: No SOB, no wheezing GASTROINTESTINAL: No abd pain, no N/V/D, no change in stool EXAMINATION General: Well-appearing gentleman in no obvious distress. Mental Status: Alert and oriented x 3 Head: Normocephalic. Eyes: Anicteric sclerae. Conjunctivae noninjected. ENT: Moist oral mucosa. Trachea midline./No cerumen impaction Psych: Normal mood and affect. Normal judgment. DATA REVIEW >> MEDICATIONS Reviewed Today (VA & Non VA) ALLERGIES: Patient has answered NKA Active Outpatient Medications (including Supplies): Issue Date Status Last Fill Active Outpatient Medications Refills Expiration 1) BALSALAZIDE DISODIUM 750MG CAP Qty: 180 ACTIVE Issu:05-31-22 for 30 days Sig: TAKE THREE CAPSULES Refills: 2 Last:04-07-23 BY MOUTH TWICE DAILY Expr:06-01-23 2) BUPROPION 150MG 24HR XL TAB (ONCE DAILY) ACTIVE Issu:04-29-23 Qty: 30 for 30 days Sig: TAKE ONE Refills: 4 Last:04-29-23 TABLET BY MOUTH EVERY MORNING *FOR Expr:04-29-24 MOOD 3) LORAZEPAM 0.5MG TAB Qty: 30 for 30 days ACTIVE Issu:04-29-23 Sig: TAKE ONE TABLET BY MOUTH ONCE Refills: 4 Last:05-04-23 DAILY NEEDED FOR ANXIETY. CAUTION Expr:10-30-[address] OR OPERATE MACHINERY. NO ALCOHOL AND DON'T TAKE IF TAKING CARISOPRODOL OR TRAMADOL. 4) MESALAMINE 1000MG RTL SUPP Qty: 30 for ACTIVE Issu:01-26-23 30 days Sig: INSERT 1 Refills: 4 Last:04-07-23 SUPPOSITORY(IES) RECTALLY AT BEDTIME Expr:01-27-24 FOR ULCERATIVE COLITIS 5) PHENYLEPHRINE HCL 0.25% RTL SUPP Qty: ACTIVE Issu:01-26-23 84 for 90 days Sig: INSERT 1 Refills: 1 Last:01-26-23 SUPPOSITORY(IES) RECTALLY ONCE DAILY Expr:01-27-24 NEEDED FOR INFLAMMATION OF THE RECTUM 6) SODIUM FLUORIDE 1.1% TOOTHPASTE Qty: ACTIVE Issu:08-11-22 100 for 90 days Sig: BRUSH SMALL Refills: 1 Last:01-28-23 AMOUNT TO TEETH TWICE DAILY FOR TOOTH Expr:08-12-23 DECAY PREVENTION Start Date Active Non-VA Medications Refills Expiration 1) Non-VA ACETAMINOPHEN 500MG TAB Sig: ACTIVE 500MG BY MOUTH NEEDED 2) Non-VA CARISOPRODOL 350MG TAB Sig: ACTIVE 350MG BY MOUTH ONCE DAILY NEEDED 3) Non-VA DICLOFENAC NA 75MG EC TAB Sig: ACTIVE 75MG BY MOUTH TWICE DAILY 4) Non-VA MULTIVITAMIN/MINERALS CAP/TAB ACTIVE Si TABLET BY MOUTH EVERY DAY 5) Non-VA OTHER CAP/TAB Sig: PREPARATION H ACTIVE SUPPOSITORIES BY MOUTH NEEDED 11 Total Medications >> LABS REVIEWED TODAY: CHEM 7 TREND LAB CUMULATIVE SELECTED Collection DT Spec GLUCOSE BUN CREATIN Sodium K+/Pot CL CO2 08/05/2022 12:20 SERUM 93 19 1.04 140 4.2 105 25 08/06/2020 11:54 SERUM 105 H 18 1.09 141 4.5 105 27 08/28/2016 11:09 SERUM 100 15 1.10 141 4.0 104 30 LAB CUMULATIVE SELECTED 2 No selection items chosen for this component. CHEM 7 Results Collection DT Spec Sodium K+/Pot CL CO2 GLUCOSE BUN 08/05/2022 12:20 SERUM 140 4.2 105 25 93 19 08/06/2020 11:54 SERUM 141 4.5 105 27 105 H 18 08/28/2016 11:09 SERUM 141 4.0 104 30 100 15 === CBC TREND Collection DT Spec WBC RBC HGB HCT MCV MCH PLT 08/05/2022 12:20 BLOOD 4.93 4.83 14.6 44.8 92.8 30.2 245 08/06/2020 11:54 BLOOD 4.27 L 4.66 14.5 44.5 95.5 31.1 238 08/28/2016 11:09 BLOOD 6.00 4.72 14.4 43.8 92.8 30.5 244 === HEMOGLOBIN A1C TREND Collection DT Spec HGBA1c 08/05/2022 12:20 BLOOD 5.0 === LIPID PANEL TREND Collection DT Spec CHOL HDL CHO/HDL LDL-c TRIG 08/05/2022 12:20 SERUM 208 H 41 5.1 152 H 73 08/06/2020 11:54 SERUM 201 H 48 4.2 126 137 08/28/2016 11:09 SERUM 167 37 L 4.5 107 114 === UREA NITROGEN 08/05/22 12:20 19 CREATININE-EGFR 08/05/22 12:20 1.04 === LIVER PANEL TREND Collection DT Spec AST ALT T BILI ALK KAMILA T. PROT ALBUMIN 08/05/2022 12:20 SERUM 21 20 0.6 50 7.7 4.2 08/06/2020 11:54 SERUM 19 20 0.4 53 7.4 4.0 08/28/2016 11:09 SERUM 15 16 0.5 58 7.3 3.8 === PSA TREND No data available = Collection DT Spec TSH 08/05/2022 12:20 SERUM 0.94 == ANEMIA PANEL TREND Collection DT Spec HCT Ferrit IRON TIBC 08/05/2022 12:20 BLOOD 44.8 08/05/2022 12:20 SERUM 159 107 330 08/06/2020 11:54 BLOOD 44.5 08/28/2016 11:09 BLOOD 43.8 === PT INR TREND No data available === >> HEALTH MAINTENANCE PREVENTIVE MEDICINE GOALS Info Only: [facility] Video Connect Capable DUE NOW HIV Screening DUE NOW Medication Reconciliation DUE NOW COVID-19 Immunization DUE NOW Herpes Zoster (Shingles) Vaccine DUE NOW ASSESSMENT/PLAN: 1. Ulcerative colitis 2. rhinitis Plan 1. refer to [facility]/Dr Marcelino for f/u colitis and surveillance C scope 2. refill colitis meds/suppositories 3. refill nasal steroid and albuterol 4. check CBC/iron studies 5. check renal fxn/lipids etc... 6. [facility] LAB ORDERS FOR NEXT APPT. spent in patient care and education No barriers; Patient understands and agrees to current treatment plan. If pt has any questions, concerns, or changes in current health status he/she will call or come in to the [facility]. Medication Reconciliation: Outpatient: Has the patient been taking medications as documented in the EMLR? YES: The patient has been taking medications as documented in the EMLR. Essential Medication List for Review used to complete this medication reconciliation. INCLUDED IN THIS LIST: Alphabetical list of active outpatient prescriptions dispensed from this [facility] (local) and dispensed from another [place] or [facility] facility (remote) as well as inpatient orders (local, pending and active), local clinic medications, locally documented non-VA medications, and local prescriptions that have or been discontinued in the past 90 days. - All changes in medications, including all non-VA/Herbal/OTC medications were entered into CPRS. - If there were any medications the patient should no longer take, they were discontinued. - The patient/caregiver was instructed to update this list, discard old lists, and take this list to the next appointment, whether with a VA or non-VA provider. /darcy/ LINDA PALOMINO MD PHYSICIAN Signed: 05/20/2023 12:16 DANIEL PALOMINO [place] [facility]
--- OUTSIDE RECORDS SUMMARY | 2024-04-11 18:48 | XMS_ITS | Encounter Summary ---
Author Name [facility] [place] [facility] [place] Address [address] [place] [id number] Care Team Providers Care Coin Machine Assembler Name Role Phone LINDA PALOMINO Primary Care [...] Relationship to Policy Banegas [facility] PRESCRIPT ION [facility] May 03, 2018 [id number] Tracey BLISS PATIENT [employer] [facility] Jul 01, 2013 [id number] Tracey BLISS PATIENT [employer]IG[employer]/NALC PREFERRED PROVIDER ORGANIZAT ION (PPO) [facility] Jul 01, 2013 [id number] Tracey BLISS PATIENT [employer]/NALC PREFERRED PROVIDER ORGANIZAT ION (PPO) [facility] Jan 01, 2011 [id number] Tracey BLISSEP PATIENT [employer]/NALC PREFERRED PROVIDER ORGANIZAT ION (PPO) [facility] HEALT H BENEF IT Jan 01, 2011 [id number] Tracey BLISS PATIENT MEDICARE (WNR) MEDICARE (M) PART B Jul 01, 2013 PART B [id number] Tracey BLISS PATIENT MEDICARE (WNR) MEDICARE (M) PART A Jul 01, 2013 PART A [id number] Tracey BLISS PATIENT MEDICARE (WNR) MEDICARE (M) PART A Jul 01, 2013 PART A [id number] Tracey BLISSH PATIENT [facility] PREFERRED PROVIDER ORGANIZAT ION (PPO) [facility] May 03, 2018 [id number] Tracey BLISS PATIENT [facility] (MED PRIME) PREFERRED PROVIDER ORGANIZAT ION (PPO) [facility] FAMIL [facility] Jul 01, 2013 [id number] Tracey BLISSH PATIENT [facility] (MED PRIME) PREFERRED PROVIDER ORGANIZAT ION (PPO) [facility] Jul 01, 2013 32 [id number] Tracey BLISS PATIENT [facility] -MCR A ONLY Jul 01, 2013 [id number] Tracey BLISS PATIENT [facility]* Jan 01, 2011 [id number] Tracey BLISS PATIENT Selected Encounter This section includes the information on record at [place] for the Encounter. Date/Time Encounter Type Encounter Description Reason Provider Source Apr 29, 2023 10:30 AM PSYTX W PT W E/M 30 [facility] ICD-10-CM F41.9 Anxiety disorder, unspecified DANIELLE ALEMAN E Encounter Template Text not used by [place] Assessments - Encounter Diagnoses This section includes the primary and secondary diagnoses documented for the Encounter. Date/Time Primary/Secondary Diagnosis Diagnosis Name Provider Source Apr 29, 2023 10:57 AM PRIMARY Anxiety disorder, unspecified DANIELLE ALEMAN [place] [facility] [place] [facility] Apr 29, 2023 10:57 AM SECONDARY Post-traumatic stress disorder, chronic ASH,DANIELLE Tavares [facility] Plan of Treatment: Future Appointments (+ 6 months) and Future Tests (+/- 45 days) The Plan of Treatment section includes future care activities for the patient from [facility] [place] [facility] This section includes future appointments and future orders which are active, pending or scheduled. Future Appointments This section includes appointments that were scheduled to occur 6 months from the date of the Encounter, up to a maximum of 20 appointments. The data comes from all [facility]. Appointment Date/Time Appointment Type Appointme nt Facility Name May 20, 2023 10:00 AM AMBULATORY MEDICINE [facility] Jun 10, 2023 02:45 PM AMBULATORY [facility] Aug 04, 2023 09:00 AM AMBULATORY MEDICINE [facility] September 02, 2023 10:30 AM AMBULATORY PSYCHIATRY [facility] September 10, 2023 06:30 AM AMBULATORY MEDICINE [facility] Oct 08, 2023 01:00 PM AMBULATORY PSYCHIATRY [facility] Active, Pending, and Scheduled Orders This section includes a listing of several types of active, pending, and scheduled orders, including clinic medications orders, diagnostic test orders, procedure orders and consult orders; where the start date of the order is 45 days before the date of the Encounter or 45 days after the date of theEncounter. The data comes from all [facility]. Test Date/Time Test Type Test Details Facility Name May 20, 2023 12:00 AM Laboratory - Chemi stry Order LIPID PANEL, NON FASTING BLOOD (SST-SERUM) [facility] Social History: Smoking Status (Most current) and Tobacco Use (All prior to encounter date) This section includes the most current, and the historical, smoking and tobacco- related health factors from the [place] facility where the Encounter took place. Current Smoking Status This section includes the most current smoking, or tobacco-related health factor, from the [place] facility where the Encounter took place. Date/Time Current Smoking Status Comment Facil ity Aug 05, 2022 11:30 AM VA-TOBACCO NEVER USED [facility] Tobacco Use History This section includes a history of the smoking, or tobacco-related health factors, that were collected on or before the date of the Encounter. The data comes from the [place] facility where the Encounter took place. Date/Time Smoking Status/Tobacco Use Comment Len acba Aug 22, 2021 11:30 AM [facility]ACCO [facility] Apr 29, 2020 10:30 AM VA-TOBACCO [facility] September 21, 2018 09:39 AM VA-TOBACCO [facility] September 21, 2018 09:39 AM VA-TOBACCO QUIT 15 YRS OR MORE [facility] Dec 31, 2017 02:50 PM QUIT TOBACCO USE > 7 YEARS AGO [facility] Dec 31, 2016 09:33 AM QUIT TOBACCO USE > 7 YEARS AGO [facility] Dec 31, 2016 09:31 AM QUIT TOBACCO USE 1 -7 YEARS AGO [facility] Jan 08, 2016 01:57 PM QUIT TOBACCO USE > 7 YEARS AGO [facility] Nov 15, 2014 10:48 AM QUIT TOBACCO USE > 7 YEARS AGO quit 1975 [facility] Advance Directives: All historical and current Section Date Range: From patient's date of to the date document was created. This section includes ALL of a patient's completed or amended [place] Advance and Rescinded Directives. The entries below indicate that a directive exists for the patient, but an actual copy is not included with this document. The data comes from all [place] facilities. Date Advance Directives Provider Source Jan 01, 2005 ADVANCE DIRECTIVE KLAUS PAZ [facility] Encounter Notes: All associated encounter notes This section contains the clinical notes associated to the Encounter. Date/Time Encounter Note(s) Provider Source Apr 29, 2023 08:22 AM CLINICAL NURSE SPECIALIST NOTE: LOCAL TITLE: CLINICAL NURSE SPECIALIST/MENTAL HEALTH STANDARD TITLE: CLINICAL NURSE SPECIALIST NOTE DATE OF NOTE: APR 29, 2023@08:22 ENTRY DATE: APR 29, 2023@08:22:13 AUTHOR: CHERELLE ALEMAN EXP COSIGNER: URGENCY: STATUS: COMPLETED NED BLISS JR, a 72year old WHITE MALE was seen for scheduled follow[place] [facility] [place] Dx: PTSD Two identifiers used. Appt lasted 30 minutes. Active problems - Computerized Problem List is the source for the followin. Hemorrhoid 2. Under care of multiple providers 3. History of surgery 4. Ulcerative colitis 5. Posttraumatic stress disorder 6. Chronic sinusitis 7. Neck pain 8. Tinnitus CHART REVIEW: was seen by Dr. Loera in the past. He has a diagnosis of PTSD and has also been treated for anxiety over the years. Served in [employer] era. He is also 50 percent service connected for migraines and sinusitis. [place] had attended PTSD group with Dr. Durbin until she retired, and he is also followed by optometry and dental at this [facility]. PACT team was changed to #4, Dr Harp. He is also followed in [facility] for dermatology. He has an outside PC as well, so his care is a bit fragmented. It is difficult to get UDS from [facility] as he does not often come to care at this [place] due to having an outside PCP. Had a [facility]. visit in August, but MH did not coincide so a UDS was not obtained. Last UDS was last year in March. His med visits are mainly [facility] so the issue of getting UDS remains, when ordering control meds. He continues to be asked to provide this when he comes for an appt. He had been educated on this several years ago. Will continue trying to obtain UDS for the controlled med program at least once a year. [place] had complained about problems with one of his bills but states it is getting fixed now . Had a growth removed in [facility] and will be having a recheck on this. SUBJECTIVE: The [place] was seen today for routine follow up; visit lasted for 30 minutes. [place] reports doing well with current mental health medication, stated he is satisfied with current care. He still has community physician but is also using [facility] for occasional health checks and he has upcoming appt here next year. He comes to [place] once a year to maintain his PACT team and still sees his community PCP as well. He has been enjoying holidays with his family, celebrated [place] with his children and they are all going to the movies today. Feels he is doing fine with current mental health med and wants to continue, denied any side effects or other issue with the meds. Today reports medical issues are maintaining. He had a skin cancer removed with good result, and will have a recheck soon. We reviewed all meds and refills that he has and he voiced understanding. CURRENT SYMPTOMS CAUSING CONCERN TO : doing well with mental health now. CURRENT STRESSORS/LIFE CIRCUMSTANCES: related doing better keeping track of appts. REVIEW OF SYSTEMS: SLEEP: denies current impairment, 6-7 hours MOOD: no depressed mood reported PTSD: Nightmares, flashbacks, intrusive memories. avoidance: denied ANXIETY: moderate, stays about the same. ANGER/IRRITABILITY/AGGRESS ION: denied SUICIDAL MOOD/IDEAS: denied SUBSTANCE USE: use of alcohol or illegal/non-prescribed drugs: denied TOBACCO: none JANEL/HYPOMANIA: None. PSYCHOTIC FEATURES: None. ALCOHOL OR DRUG USE: one scotch few times a year, got some chocolate liqueor for [place] but drinks sparingly. Does not mix with his medications. Vet was reinforced education on dangers of mixing alcohol and benzodiazepines. He stated understanding. OVERALL CHANGE SINCE LAST VISIT: minimal DEGREE OF IMPAIRMENT OF DAILY FUNCTION: mild to moderate MEDICATION RECONCILIATION: pt on no new/ non-VA prescribed medications or herbal treatments. Current meds: Active and Recently Outpatient Medications (excluding Supplies): Active Outpatient Medications Status 1) ALBUTEROL 90MCG (CFC-F) 200D ORAL INHL INHALE 2 PUFFS ACTIVE BY MOUTH EVERY 4 HOURS NEEDED FOR SHORTNESS OF BREATH 2) BALSALAZIDE DISODIUM 750MG CAP TAKE THREE CAPSULES BY ACTIVE MOUTH TWICE DAILY 3) BUPROPION 150MG 24HR XL TAB (ONCE DAILY) TAKE ONE ACTIVE TABLET BY MOUTH EVERY MORNING *FOR MOOD 4) FLUTICASONE PROP 50MCG 120D NASAL INHL INSTILL 2 ACTIVE SPRAYS INTO EACH NOSTRIL DAILY FOR NASAL IRRITATION/INFLAMMATION 5) LORAZEPAM 0.5MG TAB TAKE ONE TABLET BY MOUTH ONCE ACTIVE DAILY NEEDED FOR ANXIETY. CAUTION SEDATION.. DO NOT DRIVE OR OPERATE MACHINERY. NO ALCOHOL AND DON'T TAKE IF TAKING CARISOPRODOL OR TRAMADOL. 6) MESALAMINE 1000MG RTL SUPP INSERT 1 SUPPOSITORY(IES) ACTIVE RECTALLY AT BEDTIME 7) PHENYLEPHRINE HCL 0.25% RTL SUPP INSERT 1 ACTIVE SUPPOSITORY(IES) RECTALLY ONCE DAILY NEEDED FOR HEMORRHOIDS Active Non-VA Medications Status 1) Non-VA ACETAMINOPHEN 500MG TAB 500MG BY MOUTH ACTIVE NEEDED 2) Non-VA CARISOPRODOL 350MG TAB 350MG BY MOUTH ONCE ACTIVE DAILY NEEDED 3) Non-VA CELECOXIB 100MG CAP 100MG BY MOUTH ONCE DAILY ACTIVE 4) Non-VA IBUPROFEN TAB 200MG BY MOUTH DIRTECTED BY ACTIVE PHYSICIAN. 5) Non-VA MULTIVITAMIN/MINERALS CAP/TAB 1 TABLET BY ACTIVE MOUTH EVERY DAY 6) Non-VA OTHER CAP/TAB PREPARATION H SUPPOSITORIES BY ACTIVE MOUTH NEEDED 13 Total Medications MEDICATION ADHERENCE: takes medications most days MEDICATION SIDE EFFECTS: none Last labs: from early 2022 HGB A1C (WR): 5.0 WBC: 4.93 RBC: 4.83 HGB: 14.6 HCT: 44.8 MCV: 92.8 MCHC: 32.6 RDW: 12.2 PLT: 245 MCH: 30.2 Neut %: 68.0 Lymph %: 20.9 Maverick %: 9.3 Eos %: 1.2 Baso %: 0.4 Neut, Abs: 3.35 Lymph, Abs: 1.03 Maverick, Abs: 0.46 Eos, Abs: 0.06 Baso, Abs: 0.02 Immature Granulocytes %: 0.2 Immature Granulocytes, Abs: 0.01 GLUCOSE: 93 UREA NITROGEN: 19 SODIUM: 140 POTASSIUM: 4.2 CHLORIDE: 105 CO2: 25 CHOLESTEROL: 208 H PROTEIN,TOTAL: 7.7 ALBUMIN: 4.2 ALKALINE PHOSPHATASE: 50 SGOT: 21 SGPT: 20 TRIGLYCERIDE: 73 LDL CHOL: 152 H CHOL/HDL RATIO: 5.1 TIBC (WROX): 330 IRON (WROX): 107 HDL: 41 FERRITIN (WR): 159 BILIRUBIN,TOT.: 0.6 TSH (Access): 0.94 CREATININE-EGFR: 1.04 TRANSFERRIN SATURATION: 32.4 eGFR CKD-EPI 1: 75 Weight: 214.9 lb [97.7 kg] (01/26/2019 10:20) BMI: 30.0 MENTAL STATUS EXAM: Orientation and Consciousness: Alert and fully oriented. Appearance and Behavior: Pleasant. Cooperative. Eye Contact: good Speech: Normal rate and volume. Mood/Affect: Slightly anxious with a congruent affect. Thought Production/Content: Logical, sequential & relevant to discussion. Perceptual Disturbances: None. Attention, concentration and memory based on answers to session questions: Good. Insight/Judgment: Both good. Ability to Provide informed consent: Yes. ASSESSMENT:72 year old WHITE MALE, presents today sounding calm and focused. [facility] worked today and he is noted dressed in white button down shirt and dark slacks with dress shoes. Sitting in dining area and moves around a bit. He states he is doing fine with current mental health medications. No side effects or other med issues endorsed. Mental health meds are at [place] and physical care is managed mostly in the community. We have talked about the problems with having many providers in different places and he had stated considering consolidating care, but he has not done so. [place] relates that the face to face group for PTSD is his preference and he likes support of an ongoing group so he has not opted for a new group since most are by video. Vet has been warned previously about danger of continuing benzo as one gets older, but he maintains that this med helps him and he wants to continue in spite of risks. Is at a low dose and denied falls or other issues with cognitive problems. We reviewed all meds and refills that he has and also upcoming appts PACT and cancer follow up appts and he affirmed understanding. [place] now appears (x)stable psychiatrically ()unstable psychiatrically i. Severity of Illness: ()none (x)mild ()moderately ill ()severely ill ()very severely ill ii. Global Improvement: ()very much ()much (x)min ()none ()min worse ()much worse ()very much worse iii. Current risk of harm: ()none (x)low ()mod ()high TREATMENT PLAN/ DISCUSSION/ RATIONALE: 1. continue current medications, no indication for altering regimen. Denied any side effects or other issues with meds, was re-educated on possible cognitive risks of benzos, increase in falls and possiblity of memory issues. He elects to continue the med. 2. Appointments reviewed with [place] and labs reviewed briefly as well. 3. vet might check with [facility] regarding a possible group for the future 4. UDS order placed for screening for benzo protocol again. He has been educated on the need for the occasional monitoring. 5. Problem list was reviewed today. Next Visit: in 3-4 months. However, I asked the patient to call me or to come to return for sooner appointment if the patient does not like the effect of psychiatric medication or if has side effects with psychiatric medication. Alcohol Use Screen (AUDIT-C): Alcohol Screen: SCREEN FOR ALCOHOL (AUDIT-C) An alcohol screening test (AUDIT-C) was negative (score=2). 1. How often did you have a drink containing alcohol in the past year? Two to four times a month 2. How many drinks containing alcohol did you have on a typical day when you were drinking in the past year? One or two drinks 3. How often did you have six or more drinks on one occasion in the past year? Never Sexual Orientation: The patient thinks of their sexual orientation as: Straight or Heterosexual Prefer not to answer Medication Reconciliation: Outpatient: Has the patient been taking medications as documented in the EMLR? YES: The patient has been taking medications as documented in the EMLR. Essential Medication List for Review used to complete this medication reconciliation. INCLUDED IN THIS LIST: Alphabetical list of active outpatient prescriptions dispensed from this VA (local) and dispensed from another VA or DoD facility (remote) as well as inpatient orders [...] whether with a VA or non-VA provider. Homelessness/Food Insecurity Screen: In the past 2 months, have you been living in stable housing that you own, rent, or stay in as part of a household? Yes - Living in stable housing. Are you worried or concerned that in the next 2 months you may NOT have stable housing that you own, rent, or stay in as part of a household? No - Not worried about housing near future The [place] reports the following: Within the past 12 months, you worried whether your food would run out before you got money to buy more. Never true Within the past 12 months, the food you bought just didn't last and you didn't have money to get more. Never true /darcy/ CHERELLE Tavares. ASH RN,MSN,PSYCH N.P., STAFF CLINICAL NURSE SPECIALIST Signed: 04/29/2023 11:00 CHERELLE ALEMAN [facility] Apr 28, 2023 09:46 PM ACCOUNTING OF DISCLOSURES NOTE: LOCAL TITLE: STATE PRESCRIPTION DRUG MONITORING PROGRAM STANDARD TITLE: ACCOUNTING OF DISCLOSURES NOTE DATE OF NOTE: APR 28, 2023@21:46:27 ENTRY DATE: APR 28, 2023@21:46:27 AUTHOR: CHERELLE ALEMAN EXP COSIGNER: URGENCY: STATUS: COMPLETED This PDMP query was submitted by Cherelle Aleman [facility]. The clinical justification for this PDMP query is to review controlled substances prescribed outside of the VA, and any additional information that may become available, as an important component of standard clinical care, and in accordance with [facility] policy. Patient information was shared with the PDMP [place]. Prescription(s) filled outside the VA in the last 90 days are noted. However, they do not raise significant safety concerns and do not influence the treatment plan at this time. muscle relaxer ongoing from [facility]. /darcy/ CHERELLE Tavares. ASH RN,MSN,PSYCH N.P., STAFF CLINICAL NURSE SPECIALIST Signed: 04/29/2023 11:00 CHERELLE ALEMAN [facility]
--- OUTSIDE RECORDS SUMMARY | 2024-04-11 18:49 | XMS_ITS ---
Author Name [facility] Organization [facility] [place] Address [address] [place] [id number] Care Team Providers Care Leguillon Debeader Name Role Phone LINDA PALOMINO Primary Care [...] Relationship to Policy Banegas CAREMARK PRESCRIPT ION [facility] May 03, 2018 [id number] Tracey BLISS PATIENT [employer] [facility] [facility] Jul 01, 2013 [id number] [facility] CIG[employer]/NALC PREFERRED PROVIDER ORGANIZAT ION (PPO) [facility] Jul 01, 2013 [id number] [phone] Tracey BLISS PATIENT CIG[employer]/NALC PREFERRED PROVIDER ORGANIZAT ION (PPO) [facility] Jan 01, 2011 [id number] [phone] Tracey BLISS PATIENT CIG[employer]/NALC PREFERRED PROVIDER ORGANIZAT ION (PPO) [facility] Jan 01, 2011 [id number] [phone] Tracey BLISS PATIENT MEDICARE (WNR) MEDICARE (M) PART B Jul 01, 2013 PART B [id number] Tracey BLISS PATIENT MEDICARE (WNR) MEDICARE (M) PART A Jul 01, 2013 PART A [id number] Tracey BLISS PATIENT MEDICARE (WNR) MEDICARE (M) PART A Jul 01, 2013 PART A [id number] [phone] Tracey BLISS PATIENT [facility] PREFERRED PROVIDER ORGANIZAT ION (PPO) [facility] May 03, 2018 [id number] Tracey BLISS PATIENT [facility] (MED PRIME) PREFERRED PROVIDER ORGANIZAT ION (PPO) [facility] Jul 01, 2013 [id number] Tracey BLISS PATIENT [facility] (MED PRIME) PREFERRED PROVIDER ORGANIZAT ION (PPO) [facility] Jul 01, 2013 32 [id number] Tracey BLISS PATIENT [facility] -MCR A ONLY Jul 01, 2013 [id number] Tracey BLISS PATIENT [facility]* Jan 01, 2011 [id number] Tracey BLISS PATIENT Selected Encounter This section includes the information on record at [place] for the Encounter. Date/Time Encounter Type Encounter Description Reason Pro vider Source Aug 04, 2023 12:00 AM Outpatient Encounter EVENT (HISTORICAL) I[facility] Encounter Template Text not used by [place] Plan of Treatment: Future Appointments (+ 6 [...] 20 appointments. The data comes from all [place] treatment facilities. Appointment Date/Time Appointment Type Appointme nt Facility Name September 02, 2023 10:30 AM [facility]ULATORY [facility] [place] [facility] September 10, 2023 06:30 AM AM[facility]ULATORY [facility] MEDICINE [facility] [place] [facility] Oct 08, 2023 01:00 PM AMBULATORY - [facility] [place] [facility] Nov 03, 2023 09:00 AM AMBULATORY - [facility] [place] [facility] Jan 11, 2024 10:00 AM AMBULATORY - [facility] [place] [facility] Jan 17, 2024 10:30 AM AMBULATORY [facility] [place] [facility] Feb 01, 2024 10:00 AM [facility] [place] [facility] Vital Signs: All taken on the encounter date This section contains inpatient and outpatient Vital Signs collected on the date of the Encounter. Date/Time Temperature Pulse Blood Pressure Respiratory Rate SP02 Pain Height Weight Body Mass Index Source Aug 04, 2023 08:55 AM 97.5 77 145/69 16 95 [facility] [place] [facility] [facility] Aug 04, 2023 08:52 AM 5 206 29 [facility] [place] [facility] Social History: Smoking Status (Most current) and Tobacco Use (All prior to encounter date) This section includes the most current, and the historical, smoking and tobacco- related health factors from the [place] facility where the Encounter took place. Current Smoking Status This section includes the most current smoking, or tobacco-related health factor, from the [place] facility where the Encounter took place. Date/Time Current Smoking Status Comment Nora ity Aug 04, 2023 09:00 AM VA-TOBACCO FORMER USER [facility] [place] [facility] Tobacco Use History This section includes a history of the smoking, or tobacco-related health factors, that were collected on or before the date of the Encounter. The data comes from the [place] facility where the Encounter took place. Date/Time Smoking Status/Tobacco Use Comment F acility Aug 04, 2023 09:00 AM VA-TOBACCO QUIT 15 YRS OR MORE [facility] [place] [facility] Aug 05, 2022 11:30 AM VA-TOBACCO NEVER USED [facility] [place] [facility] Aug 22, 2021 11:30 AM VA-TOBACCO NEVER USED [facility] [place] [facility] Apr 29, 2020 10:30 AM VA-TOBACCO NEVER USED [facility] [place] [facility] September 21, 2018 09:39 AM VA-TOBACCO FORMER USER [facility] [place] [facility] September 21, 2018 09:39 AM VA-TOBACCO QUIT 15 YRS OR MORE [facility] [place] [facility] Dec 31, 2017 02:50 PM QUIT TOBACCO USE > 7 YEARS AGO [facility] [place] [facility] Dec 31, 2016 09:33 AM QUIT TOBACCO USE > 7 YEARS AGO [facility] [place] [facility] Dec 31, 2016 09:31 AM QUIT TOBACCO USE 1 -7 YEARS AGO [facility] [place] [facility] Jan 08, 2016 01:57 PM QUIT TOBACCO USE > 7 YEARS AGO [facility] [place] [facility] Nov 15, 2014 10:48 AM QUIT TOBACCO USE > 7 YEARS AGO [facility] Advance Directives: All historical and current Section Date Range: From patient's date of to the date document was created. This section includes ALL of a patient's completed or amended [place] Advance and Rescinded Directives. The entries below indicate that a directive exists for the patient, but an actual copy is not included with this document. The data comes from all [place] facilities. Date Advance Directives Provider Source Jan 01, 2005 ADVANCE DIRECTIVE KLAUS PAZ [facility]
--- OUTSIDE RECORDS SUMMARY | 2024-04-11 18:49 | XMS_ITS ---
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 Name Role Phone LINDA PALOMINO Primary Care [...] Relationship to Policy Banegas CAREMARK PRESCRIPT ION [facility] May 03, 2018 [id number] Tracey BLISS PATIENT [employer] [facility] MENTAL HEALTH [facility] Jul 01, 2013 [id number] Tracey BLISS PATIENT CIGNA/NALC PREFERRED PROVIDER ORGANIZAT ION (PPO) [facility] Jul 01, 2013 [id number] Tracey BLISS PATIENT CIG[employer]/NALC PREFERRED PROVIDER ORGANIZAT ION (PPO) [facility] Jan 01, 2011 [id number] Tracey BLISS PATIENT CIG[employer]/NALC PREFERRED PROVIDER ORGANIZAT ION (PPO) [facility] HEALT H BENEF Jan 01, 2011 [id number] Tracey BLISS PATIENT MEDICARE (WNR) MEDICARE (M) PART B Jul 01, 2013 PART B [id number] Tracey BLISS PATIENT MEDICARE (WNR) MEDICARE (M) PART A Jul 01, 2013 PART A [id number] [id number] Tracey BLISS PATIENT MEDICARE (WNR) MEDICARE (M) PART A Jul 01, 2013 PART A [id number] [phone] [id number] Tracey BLISS PATIENT [facility] PREFERRED PROVIDER ORGANIZAT ION (PPO) [facility] May 03, 2018 [id number] Tracey BLISS PATIENT [facility] (MED PRIME) PREFERRED PROVIDER ORGANIZAT ION (PPO) [facility] FAMIL [facility] Jul 01, 2013 [id number] Tracey BLISSH PATIENT [facility] (MED PRIME) PREFERRED PROVIDER ORGANIZAT ION (PPO) [facility] Jul 01, 2013 32 [id number] Tracey BLISSH PATIENT [facility] -MCR A ONLY Jul 01, 2013 [id number] Tracey BLISS PATIENT [facility]* Jan 01, 2011 [id number] Tracey BLISS PATIENT Selected Encounter This section includes the information on record at [place] for the Encounter. 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 Date/Time Primary/Secondary Diagnosis Diagnosis Name Provider Source Aug 26, 2023 02:55 PM PRIMARY Holland's palsy LINDA PALOMINO [facility] [place] [facility] Aug 26, 2023 02:55 PM SECONDARY Allergic rhinitis, unspecified LINDA PALOMINO [facility] [place] [facility] Aug 26, 2023 02:55 PM SECONDARY Ulcerative colitis, unspecified, without complications LINDA PALOMINO [facility] [place] [facility] Plan of Treatment: Future Appointments (+ 6 months) and Future Tests (+/- 45 days) The Plan of Treatment section includes future care activities for the patient [facility] This section includes future appointments and future orders which are active, pending or scheduled. Future Appointments This section includes appointments that were scheduled to occur 6 months from the date of the Encounter, up to a maximum of 20 appointments. The data comes from all [place] treatment facilities. Appointment Date/Time Appointment Type Appointme nt Facility Name September 02, 2023 10:30 AM AMBULATORY - PSYCHIATRY [facility] [place] [facility] September 10, 2023 06:30 AM AMBULATORY - MEDICINE [facility] [place] [facility] Oct 08, 2023 01:00 PM AMBULATORY - PSYCHIATRY [facility] [place] [facility] Nov 03, 2023 09:00 AM AMBULATORY - PSYCHIATRY [facility] [place] [facility] Jan 11, 2024 10:00 AM AMBULATORY - PSYCHIATRY [facility] [place] [facility] Jan 17, 2024 10:30 AM AMBULATORY - PSYCHIATRY [facility] [place] [facility] Feb 01, 2024 10:00 AM AMBULATORY - PSYCHIATRY [facility] [place] [facility] Vital Signs: All taken on the encounter date This section contains inpatient and outpatient Vital Signs collected on the date of the Encounter. Date/Time Temperature Pulse Blood Pressure Respiratory Rate SP02 Pain Height Weight Body Mass Index Source Aug 04, 2023 08:55 AM 97.5 77 145/69 16 95 [facility] [place] [facility] Aug 04, 2023 08:52 AM 5 206 29 [facility] [place] [facility] Social History: Smoking Status (Most current) and Tobacco Use (All prior to encounter date) This section includes the most current, and the historical, smoking and tobacco- related health factors from the MS facility where the Encounter took place. Current Smoking Status This section includes the most current smoking, or tobacco-related health factor, from the MS facility where the Encounter took place. Date/Time Current Smoking Status Comment Nora ity Aug 04, 2023 09:00 AM [facility] [place] [facility] Tobacco Use History This section includes a history of the smoking, or tobacco-related health factors, that were collected on or before the date of the Encounter. The data comes from the MS facility where the Encounter took place. Date/Time Smoking Status/Tobacco Use Comment F acility Aug 04, 2023 09:00 AM VA-TOBACCO QUIT 15 YRS OR MORE [facility] [place] [facility] Aug 05, 2022 11:30 AM VA-TOBACCO NEVER USED [facility] [place] [facility] Aug 22, 2021 11:30 AM VA-TOBACCO NEVER USED [facility] [place] [facility] Apr 29, 2020 10:30 AM VA-TOBACCO NEVER USED [facility] [place] [facility] September 21, 2018 09:39 AM VA-TOBACCO FORMER USER [facility] [place] [facility] September 21, 2018 09:39 AM VA-TOBACCO QUIT 15 YRS OR MORE [facility] [place] [facility] Dec 31, 2017 02:50 PM QUIT TOBACCO USE > 7 YEARS AGO [facility] [place] [facility] Dec 31, 2016 09:33 AM QUIT TOBACCO USE > 7 YEARS AGO [facility] [place] [facility] Dec 31, 2016 09:31 AM QUIT TOBACCO USE 1 -7 YEARS AGO [facility] [place] [facility] Jan 08, 2016 01:57 PM QUIT TOBACCO USE > 7 YEARS AGO [facility] [place] [facility] Nov 15, 2014 10:48 AM QUIT TOBACCO USE > 7 YEARS AGO quit [facility] Advance Directives: All historical and current Section Date Range: From patient's date of to the date document was created. This section includes ALL of a patient's completed or amended [place] Advance and Rescinded Directives. The entries below indicate that a directive exists for the patient, but an actual copy is not included with this document. The data comes from all [place] facilities. Date Advance Directives Provider Source Jan 01, 2005 ADVANCE DIRECTIVE [facility] [place] [facility] Encounter Notes: All associated encounter notes This section contains the clinical notes associated to the Encounter. Date/Time Encounter Note(s) Provider Source Aug 04, 2023 08:58 AM PREVENTIVE MEDICINE NURSING NOTE: LOCAL TITLE: CLINICAL REMINDERS/NURSING STANDARD TITLE: PREVENTIVE MEDICINE NURSING NOTE DATE OF NOTE: AUG 04, 2023@08:58 ENTRY DATE: AUG 04, 2023@08:58:33 AUTHOR: HUBER SANCHEZ EXP COSIGNER: URGENCY: STATUS: COMPLETED Advance Directive Screen MH AD: Patient has an Advance Directive on file at this [facility]. No updates are needed at this time. The patient received education about Advance Directives and written notification of his/her rights. Suicide Screen: C-SSRS Screening [place] Suicide Severity Rating Scale (C-SSRS) screener 1. Over the past month, have you wished you were or wished you could go to sleep and not wake up? No 2. Over the past month, have you had any actual thoughts of killing yourself? No 3. Over the past month, have you been thinking about how you might do this? Response not required due to responses to other questions. 4. Over the past month, have you had these thoughts and had some intention of acting on them? Response not required due to responses to other questions. 5. Over the past month, have you started to work out or worked out the details of how to kill yourself? Response not required due to responses to other questions. 6. If yes, at any time in the past month did you intend to carry out this plan? Response not required due to responses to other questions. 7. In your lifetime, have you ever done anything, started to do anything, or prepared to do anything to end your life (for example, collected pills, obtained a gun, gave away valuables, went to the roof but didn't jump)? No 8. If YES, was this within the past 3 months? Response not required due to responses to other questions. Follow Up Colonoscopy: Colonoscopy is due based on information available to this reminder. A colonoscopy is currently scheduled or in process of being scheduled. Comment: per scheduled in august Depression Screening: Perform PHQ-2 A PHQ-2 screen was performed. The score was 2 which is a negative screen for depression. Over the past two weeks, how often have you been bothered by the following problems? 1. Little interest or pleasure in doing things Several days 2. Feeling down, depressed, or hopeless Several days Falls & Incontinence Screen: Falls Screen: During the past 12 months, did the patient report any falls? 4. No falls within the past year. Incontinence Screen: During the past 12 months, has the patient has any characteristics of incontinence (ability, voiding, leakage, etc.)? No incontinence. Tobacco Use Screening: The patient is a former tobacco user. The patient quit fifteen or more years ago. COVID-19 Immunization: Refused Moderna Monovalent COVID-19 vaccine Immunization: COVID-19 (MODERNA), MRNA, LNP-S, PF, 50 MCG/0.5 ML (AGES 12+ YEARS) Refusal Reason: PATIENT DECISION Patient refuses all immunization(s) in the COVID-19 group Date Documented: 08/04/23 09:00 Herpes Zoster (Shingles) Vaccine: The patient declines to receive the recommended dose of zoster (shingles) vaccine. Immunization: ZOSTER RECOMBINANT Refusal Reason: PATIENT DECISION Patient refuses all immunization(s) in the ZOSTER group Date Documented: 08/04/23 09:00 /darcy/ HUBER SANCHEZ LPN License Practical Nurse Signed: 08/04/2023 09:00 HUBER SANCHEZ [facility] Aug 04, 2023 08:14 AM PHYSICIAN NOTE: LOCAL TITLE: NOTE STANDARD TITLE: PHYSICIAN NOTE DATE OF NOTE: AUG 04, 2023@08:14 ENTRY DATE: AUG 04, 2023@08:14:37 AUTHOR: DANIEL PALOMINO EXP COSIGNER: URGENCY: STATUS: COMPLETED HISTORY OF PRESENT ILLNESS: NED Harrington JR BLISS, is a 73 yo WHITE MALE who presents at the [facility] at [facility] CC. bells palsy HPI. vet noted right facial weakness and had eval at [facility] ED and was diagnosed with right facial weakness c/w bells palsy on 07/29. vet here for f/u ED visit and reports slight improvement in past few days on prednisone and valtrex. he also has chronic rhinitis with nasal discharge and finds fluticasone nasal spray helpful. Vet has long hx of ulcerative colitis and needs repeat C scope per Dr Edwardo WINN on 09/10/23. vet needs refills of suppositories he uses of his hemorrhoids. No wt loss, no fevers. SH. nonsmoker Active problems - Computerized Problem List is the source for the followin. Allergic Rhinitis ([facility] [[email or web address]] [id number]) 2. Basal cell carcinoma of skin 3. Hyperlipidemia ([facility] [[email or web address]] [id number]) 4. Anxiety 5. Hemorrhoid 6. Under care of multiple providers 7. History of surgery 8. Ulcerative colitis 9. Posttraumatic stress disorder 10. Chronic sinusitis 11. Neck pain 12. 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 COMBAT SERVICE INDICATED: No SERVICE CONNECTED % - 100 VITAL SIGNS: Temperature 97.2 F [36.2 C] (05/20/2023 09:49) Blood Pressure 134/66 (05/20/2023 09:49) Pulse 71 (05/20/2023 09:49) Respiration 18 (05/20/2023 09:49) Pain 0 (05/20/2023 09:49) BMI BMI: 28.8 Weight 206 lb [93.44 kg] (05/20/2023 09:49) Pulse Oximetry 97% (05/20/2023 09:49) Review of Systems: GASTROINTESTINAL: No abd pain, no N/V/D, no change in stool GENITOURINARY: No dysuria, no hematuria MUSCULOSKELETAL: No joint pain, no joint swelling PSYCHIATRIC: No anxiety, no trouble sleeping, no depression NEUROLOGIC: No H/A, no numbness, no weakness, no tingling EXAMINATION General: Well-appearing gentleman mildly upset about bells palsy Mental Status: Alert and oriented x 3 Head: Normocephalic. Eyes: no evidence of eye inflammation or discharge Ext: No cyanosis or clubbing. No gross deformities. Neuro: vet has complete R facial weakness extending from scalp line on right foread to chin, unable to smile or close right eye Psych: slightly anxious mood and affect. Normal judgment. DATA REVIEW >> MEDICATIONS Reviewed Today (VA & Non VA) ALLERGIES: Patient has answered NKA Active Outpatient Medications (including Supplies): Issue Date Status Last Fill Active Outpatient Medications Refills Expiration 1) BUPROPION 150MG 24HR XL TAB (ONCE DAILY) ACTIVE Issu:04-29-23 Qty: 30 for 30 days Sig: TAKE ONE Refills: 4 Last:04-29-23 TABLET BY MOUTH EVERY MORNING *FOR Expr:04-29-24 MOOD 2) CARBAMIDE PEROXIDE 6.5% OTIC SOLN Qty: ACTIVE Issu:05-20-23 15 for 90 days Sig: INSTILL 5 TO 10 Refills: 3 Last:05-20-23 DROPS INTO THE AFFECTED EAR(S) ONCE Expr:05-20-24 DAILY NEEDED FOR EAR WAX BLOCKAGE 3) FLUTICASONE PROP 50MCG 120D NASAL INHL ACTIVE Issu:05-20-23 Qty: 1 for 90 days Sig: INSTILL 1 Refills: 0 Last:05-20-23 SPRAY INTO EACH NOSTRIL ONCE DAILY Expr:08-18-23 4) LORAZEPAM 0.5MG TAB Qty: 30 for 30 days ACTIVE Issu:04-29-23 Sig: TAKE ONE TABLET BY MOUTH ONCE Refills: 4 Last:05-04-23 DAILY NEEDED FOR ANXIETY. CAUTION Expr:10-30-[address] OR OPERATE MACHINERY. NO ALCOHOL AND DON'T TAKE IF TAKING CARISOPRODOL OR TRAMADOL. 5) MESALAMINE 1000MG RTL SUPP Qty: 90 for ACTIVE Issu:01-18-24 90 days Sig: INSERT 1 Refills: 3 Last:05-20-23 SUPPOSITORY(IES) RECTALLY AT BEDTIME Expr:05-20-24 FOR ULCERATIVE COLITIS 6) PHENYLEPHRINE HCL 0.25% RTL SUPP Qty: ACTIVE Issu:05-20-23 84 for 90 days Sig: INSERT 1 Refills: 1 Last:05-20-23 SUPPOSITORY(IES) RECTALLY ONCE DAILY Expr:05-20-24 NEEDED FOR INFLAMMATION OF THE RECTUM 7) SODIUM FLUORIDE 1.1% TOOTHPASTE Qty: ACTIVE Issu:05-20-23 102 for 90 days Sig: BRUSH SMALL Refills: 3 Last:05-20-23 AMOUNT TO TEETH TWICE DAILY FOR TOOTH Expr:05-20-24 DECAY PREVENTION Start Date Active Non-VA Medications [...] PREPARATION H ACTIVE SUPPOSITORIES BY MOUTH NEEDED 12 Total Medications >> LABS REVIEWED TODAY: CHEM 7 TREND LAB CUMULATIVE SELECTED Collection DT Spec GLUCOSE BUN CREATIN Sodium K+/Pot CL CO2 07/01/2023 08:52 SERUM 99 19 1.08 142 4.0 107 27 08/05/2022 12:20 SERUM 93 19 1.04 140 4.2 105 25 08/06/2020 11:54 SERUM 105 H 18 1.09 141 4.5 105 27 08/28/2016 11:09 SERUM 100 15 1.10 141 4.0 104 30 LAB CUMULATIVE SELECTED 2 No selection items chosen for this component. CHEM 7 Results Collection DT Spec Sodium K+/Pot CL CO2 GLUCOSE BUN 07/01/2023 08:52 SERUM 142 4.0 107 27 99 19 08/05/2022 12:20 SERUM 140 4.2 105 25 93 19 08/06/2020 11:54 SERUM 141 4.5 105 27 105 H 18 08/28/2016 11:09 SERUM 141 4.0 104 30 100 15 CBC TREND Collection DT Spec WBC RBC HGB HCT MCV MCH PLT 07/01/2023 08:52 BLOOD 4.17 L 4.71 14.4 43.4 92.1 30.6 254 08/05/2022 12:20 BLOOD 4.93 4.83 14.6 44.8 92.8 30.2 245 08/06/2020 11:54 BLOOD 4.27 L 4.66 14.5 44.5 95.5 31.1 238 08/28/2016 11:09 BLOOD 6.00 4.72 14.4 43.8 92.8 30.5 244 HEMOGLOBIN A1C TREND Collection DT Spec HGBA1c 07/01/2023 08:52 BLOOD 5.6 08/05/2022 12:20 BLOOD 5.0 LIPID PANEL TREND Collection DT Spec CHOL HDL CHO/HDL LDL-c TRIG 07/01/2023 08:52 SERUM 198 42 4.7 140 H 82 08/05/2022 12:20 SERUM 208 H 41 5.1 152 H 73 08/06/2020 11:54 SERUM 201 H 48 4.2 126 137 08/28/2016 11:09 SERUM 167 37 L 4.5 107 114 UREA NITROGEN 07/01/23 08:52 19 08/05/22 12:20 19 CREATININE-EGFR 07/01/23 08:52 1.08 08/05/22 12:20 1.04 LIVER PANEL TREND Collection DT Spec AST ALT T BILI ALK KAMILA T. PROT ALBUMIN 07/01/2023 08:52 SERUM 18 17 0.7 52 7.3 3.9 08/05/2022 12:20 SERUM 21 20 0.6 50 7.7 4.2 08/06/2020 11:54 SERUM 19 20 0.4 53 7.4 4.0 08/28/2016 11:09 SERUM 15 16 0.5 58 7.3 3.8 PSA TREND Collection DT Spec PSA SR- 07/01/2023 08:52 SERUM 3.88 Collection DT Spec TSH 07/01/2023 08:52 SERUM 1.73 ANEMIA PANEL TREND Collection DT Spec HCT Ferrit IRON TIBC 07/01/2023 08:52 BLOOD 43.4 07/01/2023 08:52 SERUM 169 126 312 08/05/2022 12:20 BLOOD 44.8 08/05/2022 12:20 SERUM 159 107 330 08/06/2020 11:54 BLOOD 44.5 PT INR TREND No data available >> HEALTH MAINTENANCE PREVENTIVE MEDICINE GOALS Info Only: [facility] Video Connect Capable DUE NOW Advance Directive Screen MH AD Aug 05, Suicide Screen Aug 05 Follow Up Colonoscopy Oct 30 Depression Screening Aug 05 Falls & Incontinence Screen DUE NOW Mental Health Treatment Plan DUE NOW Tobacco Use Screening Aug 05 Medication Reconciliation DUE NOW COVID-19 Immunization DUE NOW Herpes Zoster (Shingles) Vaccine DUE NOW RHS Screen DUE NOW ASSESSMENT/PLAN: 1. [place] palsy- R facial weakness 2. rhinitis 3. ulcerative colitis Plan 1. vet will continue prednisone and valtrex/also [facility] next month or so due to possible eye irritation 2. f/u with community PCP in 2 weeks/ if worse or not improving vet may call [facility] for [facility] consult in [place] 3. refill fluticasone nasal 4. comment added to [facility] consult about dx of UC and NOT colon cancer screen for C scope 09/10/23 5. refill suppository 6. f/u w/ [facility] 6 mos and PRN LAB ORDERS FOR NEXT APPT. spent in [...] of active outpatient prescriptions dispensed from this MS (local) and dispensed from another MS or [facility]D facility (remote) as well as [...] provider. /darcy/ LINDA PALOMINO MD PHYSICIAN Signed: 08/04/2023 11:13 CHAVEZ PALOMINO [facility] [place] [facility]
--- OUTSIDE RECORDS SUMMARY | 2024-04-11 18:50 | XMS_ITS | Encounter Summary ---
Author Name [facility] [place] Organization [place] Address [address] [place] [id number] Care Team Providers Care Multimedia Journalist Name Role Phone LINDA PALOMINO Primary Care [...] Relationship to Policy Banegas [facility] PRESCRIPT ION [facility] May 03, 2018 [id number] Tracey BLISS PATIENT [facility] Jul 01, 2013 [id number] Tracey BLISS PATIENT CIGNA/NALC PREFERRED PROVIDER ORGANIZAT ION (PPO) [facility] Jul 01, 2013 [id number] Tracey BLISS PATIENT CIGNA/NALC PREFERRED PROVIDER ORGANIZAT ION (PPO) [facility] Jan 01, 2011 [id number] Tracey BLISSEP PATIENT CIGNA/NALC PREFERRED PROVIDER ORGANIZAT ION (PPO) [facility] HEALT H BENEF IT Jan 01, 2011 [id number] Tracey BLISS PATIENT MEDICARE (WNR) MEDICARE (M) PART B Jul 01, 2013 PART B [id number] Tracey BLISS PATIENT MEDICARE (WNR) MEDICARE (M) PART A Jul 01, 2013 PART A [id number] Tracey BLISS PATIENT MEDICARE (WNR) MEDICARE (M) PART A Jul 01, 2013 PART A [id number] Tracey BLISSH PATIENT [facility] PREFERRED PROVIDER ORGANIZAT ION (PPO) [facility] May 03, 2018 32 [id number] Tracey BLISS PATIENT [facility] (MED PRIME) PREFERRED PROVIDER ORGANIZAT ION (PPO) [facility] FAM[facility] Jul 01, 2013 [id number] Tracey BLISSH PATIENT [facility] (MED PRIME) PREFERRED PROVIDER ORGANIZAT ION (PPO) [facility] Jul 01, 2013 32 [id number] Tracey BLISS PATIENT [facility] -MCR A ONLY Jul 01, 2013 [id number] Tracey BLISS PATIENT [facility]* Jan 01, 2011 [id number] Tracey BLISS PATIENT Selected Encounter This section includes the information on record at [place] for the Encounter. Date/Time Encounter Type Encounter Description Reason Provider Source September 02, 2023 10:30 AM PSYTX W PT W E/M 30 [facility] - IND ICD-10-CM F41.9 Anxiety disorder, unspecified DANIELLE ALEMAN E Encounter Template Text not used by [place] Assessments - Encounter Diagnoses This section includes the primary and secondary diagnoses documented for the Encounter. Date/Time Primary/Secondary Diagnosis Diagnosis Name Provider Source September 02, 2023 02:30 PM PRIMARY Anxiety disorder, unspecified DANIELLE ALEMAN [place] [facility] [place] [facility] September 02, 2023 02:30 PM SECONDARY Post-traumatic stress disorder, chronic ASH,DANIELLE Tavares [facility] Plan of Treatment: Future Appointments (+ 6 months) and Future Tests (+/- 45 days) The Plan of Treatment section includes future care activities for the patient from all [facility]. This section includes future appointments and future orders which are active, pending or scheduled. Future Appointments This section includes appointments that were scheduled to occur 6 months from the date of the Encounter, up to a maximum of 20 appointments. The data comes from all [place] treatment facilities. Appointment Date/Time Appointment Type Appointme nt Facility Name September 10, 2023 06:30 AM AMBULATORY - MEDICINE [facility] [place] [facility] Oct 08, 2023 01:00 PM [facility] Nov 03, 2023 09:00 AM [facility] [place] [facility] Jan 11, 2024 10:00 AM [facility] [place] [facility] Jan 17, 2024 10:30 AM [facility] [place] [facility] Feb 01, 2024 10:00 AM [facility] [place] [facility] Feb 09, 2024 10:00 AM AMBULATORY - MEDICINE [facility] Feb 11, 2024 10:45 AM [facility] - NONE [facility] [place] [facility] Feb 16, 2024 11:30 AM [facility] [place] [facility] Feb 22, 2024 01:45 PM AMBULATORY - MEDICINE [facility] Social History: Smoking Status (Most current) and Tobacco Use (All prior to encounter date) This section includes the most current, and the historical, smoking and tobacco- related health factors from the [place] facility where the Encounter took place. Current Smoking Status This section includes the most current smoking, or tobacco-related health factor, from the [place] facility where the Encounter took place. Date/Time Current Smoking Status Comment Nora mclaughlin Aug 04, 2023 09:00 AM VA-TOBACCO QUIT 15 YRS OR MORE [facility] Tobacco Use History This section includes a history of the smoking, or tobacco-related health factors, that were collected on or before the date of the Encounter. The data comes from the [place] facility where the Encounter took place. Date/Time Smoking Status/Tobacco Use Comment F acility Aug 04, 2023 09:00 AM VA-TOBACCO QUIT 15 YRS OR MORE HI [facility] [place] [facility] Aug 05, 2022 11:30 AM VA-TOBACCO NEVER USED HI [facility] [place] [facility] Aug 22, 2021 11:30 AM VA-TOBACCO NEVER USED [place] [facility] [place] [facility] Apr 29, 2020 10:30 AM VA-TOBACCO NEVER USED [place] [facility] [place] [facility] September 21, 2018 09:39 AM VA-TOBACCO FORMER USER HI [facility] [place] [facility] September 21, 2018 09:39 AM VA-TOBACCO QUIT 15 YRS OR MORE [facility] [place] [facility] Dec 31, 2017 02:50 PM QUIT TOBACCO USE > 7 YEARS AGO HI [facility] [place] [facility] Dec 31, 2016 09:33 AM QUIT TOBACCO USE > 7 YEARS AGO HI [facility] [place] [facility] Dec 31, 2016 09:31 AM QUIT TOBACCO USE 1 -7 YEARS AGO HI [facility] [place] [facility] Jan 08, 2016 01:57 PM QUIT TOBACCO USE > 7 YEARS AGO HI [facility] [place] [facility] Nov 15, 2014 10:48 AM QUIT TOBACCO USE > 7 YEARS AGO quit 1975 [place] [facility] [place] [facility] Advance Directives: All historical and current Section Date Range: From patient's date of to the date document was created. This section includes ALL of a patient's completed or amended [place] Advance and Rescinded Directives. The entries below indicate that a directive exists for the patient, but an actual copy is not included with this document. The data comes from all [place] facilities. Date Advance Directives Provider Source Jan 01, 2005 ADVANCE DIRECTIVE KLAUS PAZ [facility] [place] [facility] Encounter Notes: All associated encounter notes This section contains the clinical notes associated to the Encounter. Date/Time Encounter Note(s) Provider Source September 20, 2023 02:17 PM ACCOUNTING OF DISCLOSURES NOTE: LOCAL TITLE: STATE PRESCRIPTION DRUG MONITORING PROGRAM STANDARD TITLE: ACCOUNTING OF DISCLOSURES NOTE DATE OF NOTE: SEPTEMBER 20, 2023@14:17:30 ENTRY DATE: SEPTEMBER 20, 2023@14:17:30 AUTHOR: CHERELLE ALEMAN EXP COSIGNER: URGENCY: STATUS: COMPLETED This PDMP query was submitted by Cherelle Aleman [facility]. The clinical justification for this PDMP query is to review controlled substances prescribed outside of the [facility], and any additional information that may become available, as an important component of standard clinical care, and in accordance with [facility] policy. Patient information was shared with the PDMP [place]. Prescription(s) filled outside the VA in the last 90 days are noted. However, they do not raise significant safety concerns and do not influence the treatment plan at this time. muscle relaxants from his outside physician have been ongoing over time. Do not interfere with his low dose benzo so far. /darcy/ CHERELLE ALEMAN RN,MSN,PSYCH N.P., STAFF CLINICAL NURSE SPECIALIST Signed: 09/20/2023 14:17 CHERELLE ALEMAN [facility] September 02, 2023 08:15 AM CLINICAL NURSE SPECIALIST NOTE: LOCAL TITLE: CLINICAL NURSE SPECIALIST/MENTAL HEALTH STANDARD TITLE: CLINICAL NURSE SPECIALIST NOTE DATE OF NOTE: SEPTEMBER 02, 2023@08:15 ENTRY DATE: SEPTEMBER 02, 2023@08:15:11 AUTHOR: CHERELLE ALEMAN EXP COSIGNER: URGENCY: STATUS: COMPLETED NED BLISS JR, a 73year old WHITE MALE was seen for scheduled follow-up at [facility] for Dx: PTSD Two identifiers used, and full SSN. Again states he has trouble connecting with [facility], eventually we were able to connect. Appt lasted 30 minutes. Active problems - [...] for anxiety over the years. Served in [facility] era. He is 50 percent service connected for migraines and sinusitis. had attended PTSD group with Dr. Durbin until she retired, and he is also followed by optometry and dental at this [facility]. PACT team was changed to #4, Dr Harp. He is also followed in Community for dermatology. He has an outside PC as well, so his care is a bit fragmented. It is difficult to get UDS from Vet as he does not often come to care at this HI due to having an outside PCP. Had a VA. visit in August, but MH did not coincide so a UDS was not obtained. Last UDS was last year in March. His med visits are mainly VVC so the issue of getting UDS remains, when ordering control meds. He had been educated on this several years ago. Will continue trying to obtain UDS for the controlled med program at least once a year. [place] had complained about problems with one of his bills but states it is getting fixed now . He attended group with Dr. Durbin over the years, and recently was reassigned to a new PTSD group on VVC but he reports not wanting to attend groups on VVC, prefers face to face groups for therapy rather than VVC although he can do either. Not sure what he wants for therapy at this point. SUBJECTIVE: The was seen today for routine follow up; visit lasted for 30 minutes. reports doing well with current mental health medication, stated he is satisfied with current care. He still has community physician but is also using VA for occasional health checks and he did blood screen labs here this year. He comes to [place] once a year to maintain his PACT team and still sees his community PCP as well. He is helping family with coordinating transport and care for the grandchildren, to and from school. Feels he is doing fine with current mental health med and wants to continue, denied any side effects or other issue with the meds. Today reports medical issues are resolving. He had a skin cancer removed with good result, last year. We reviewed all meds and refills that he has and he voiced understanding. Currently worried about his upcoming colonoscopy. CURRENT SYMPTOMS CAUSING CONCERN TO : doing well with mental health now. CURRENT STRESSORS/LIFE CIRCUMSTANCES: has trouble keeping track of appts. but he has had this ongoing and it is not worse. REVIEW OF SYSTEMS: SLEEP: denies current impairment, 6-7 hours MOOD: no depressed mood reported PTSD: Nightmares, flashbacks, intrusive memories. avoidance: denied ANXIETY: moderate, stays about the same. ANGER/IRRITABILITY/AGGRESS ION: denied SUICIDAL MOOD/IDEAS: denied SUBSTANCE USE: use of alcohol or illegal/non-prescribed drugs: denied TOBACCO: none JANEL/HYPOMANIA: None. PSYCHOTIC FEATURES: None. ALCOHOL OR DRUG USE: one scotch few times a year, [place] at times, wine occasionally.Vet was reinforced education on dangers of mixing [...] days MEDICATION SIDE EFFECTS: none Last labs: HGB A1C (WR): 5.0 WBC: 4.93 RBC: 4.83 HGB: 14.6 HCT: 44.8 MCV: 92.8 MCHC: 32.6 RDW: 12.2 PLT: 245 MCH: 30.2 Neut %: 68.0 Lymph %: 20.9 Sargent %: 9.3 Eos %: 1.2 Baso %: 0.4 Neut, Abs: 3.35 Lymph, Abs: 1.03 Sargent, Abs: 0.46 Eos, Abs: 0.06 Baso, Abs: [...] CREATININE-EGFR: 1.04 TRANSFERRIN SATURATION: 32.4 eGFR CKD-EPI 2021: 75 Weight: 214.9 lb [97.7 kg] (01/26/2019 [...] good. Ability to Provide informed consent: Yes. ASSESSMENT:73 year old WHITE MALE, presents today sounding somewhat anxious but overall calmer than last visit. [place] gets frustrated if VVC not working or other inconveniences occur. Has outside providers as well as VA which causes some splits in care. Says HH has messed up his bills and same from last testing has not been paid which is giving him stress. Has done recent labs due to coming in for a gastric follow up appt. Labs were fine for his UDS. He states he is doing well with current mental health medications. No side effects or other med issues endorsed. Mental health meds are at VA and physical care is managed mostly in the community. We have talked about the problems with having many providers in different places and he had stated considering consolidating care, but he has not done so. He is uncertain if he will do VVC groups or treatment that involves an endpoint. I have already done all that. for him and he can do VVC if needed or face to face. We talked about the Vet support group, but he did not want to consider that. As far as meds are concerned, Trev has been warned previously about danger of continuing benzo as one gets older, but he maintains that this med helps him and he wants to continue in spite of risks. Is at a low dose and denied falls or other issues with cognitive problems. We reviewed all meds and refills that he has and also upcoming appt for colonoscopy and plans to attend. Bethany now appears (x)stable psychiatrically ()unstable psychiatrically i. [...] issues. He elects to continue the med. Has been on fpc benzos over years. Continue education on risks. 2. Appointments reviewed with and labs reviewed briefly as well. 3. trev was having therapy with Dr. Sanchez but she recently left [place], trev is unsure what he wants for therapy, had been fpc with Dr. Durbin in the past, will refer by consult. 4. UDS order done for screening for benzo protocol this year and was fine. He has been educated on the need for the occasional monitoring. 5. Bethany is having colonoscopy soon and will check in next week with VA to get his meds reordered and follow up as needed. Next Visit: in 3-4 months. However, I asked the patient to call me or to come to return for sooner appointment if the patient does not like the effect of psychiatric medication or if has side effects with psychiatric medication. Medication Reconciliation: Outpatient: Has the patient been taking medications as documented in the EMLR? YES: The patient has been taking medications as documented in the EMLR. Essential Medication List for Review used to complete this medication reconciliation. INCLUDED IN THIS LIST: Alphabetical list of active outpatient prescriptions dispensed from this [place] (local) and dispensed from another [place] or [facility] facility (remote) as well as inpatient orders [...] with a VA or non-VA provider. /darcy/ CHERELLE ALEMAN RN,MSN,PSYCH N.P., STAFF CLINICAL NURSE SPECIALIST Signed: 09/02/2023 15:58 CHERELLE ALEMAN [facility]
--- OUTSIDE RECORDS SUMMARY | 2024-04-11 18:50 | XMS_ITS ---
Author Name [place] Organization [place] Address [address] [place] [id number] Care Team Providers Care Gambling Counsellor Name Role Phone LINDA PALOMINO Primary Care [...] Relationship to Policy Banegas [facility]EM[facility] PRESCRIPT ION [facility] May 03, 2018 [id number] [phone] Tracey BLISS PATIENT [employer] [facility] MENTAL HEALTH [facility] Jul 01, 2013 [id number] [facility] CIGNA/NALC PREFERRED PROVIDER ORGANIZAT ION (PPO) [facility] Jul 01, 2013 32 [id number] [facility] CIGNA/NALC PREFERRED PROVIDER ORGANIZAT ION (PPO) [facility] Jan 01, 2011 [id number] Tracey BLISS PATIENT CIGNA/NALC PREFERRED PROVIDER ORGANIZAT ION (PPO) [facility] HEALT H BENEF Jan 01, 2011 [id number] Tracey BLISS PATIENT MEDICARE (WNR) MEDICARE (M) PART B Jul 01, 2013 PART B [id number] Tracey BLISS PATIENT MEDICARE (WNR) MEDICARE (M) PART A Jul 01, 2013 PART A [id number] Tracey BLISS PATIENT MEDICARE (WNR) MEDICARE (M) PART A Jul 01, 2013 PART A [id number] Tracey BLISS PATIENT [facility] PREFERRED PROVIDER ORGANIZAT ION (PPO) [facility] May 03, 2018 32 [id number] Tracey BLISS PATIENT [facility] (MED PRIME) PREFERRED PROVIDER ORGANIZAT ION (PPO) [facility] FAM[facility] Jul 01, 2013 322 [id number] Tracey BLISS PATIENT [facility] (MED PRIME) PREFERRED PROVIDER ORGANIZAT ION (PPO) [facility] Jul 01, 2013 32 [id number] Tracey BLISS PATIENT [facility] MENTAL HEALTH [facility] -MCR A ONLY Jul 01, 2013 [id number] 30 Tracey BLISS PATIENT [facility]* Jan 01, 2011 [id number] Tracey BLISS PATIENT Selected Encounter This section includes the information on record at [place] for the Encounter. Date/Time Encounter Type Encounter Description Reason Pro vider Source Aug 20, 2023 12:40 PM Outpatient Encounter COMMUNITY CARE CONSULT IHE [...] 20 appointments. The data comes from all [place] treatment facilities. Appointment Date/Time Appointment Type Appointme nt Facility Name September 02, 2023 10:30 AM AMBULATORY - PSYCHIATRY [facility] [place] [facility] September 10, 2023 06:30 AM AMBULATORY - MEDICINE [facility] [place] [facility] Oct 08, 2023 01:00 PM AMBULATORY - PSYCHIATRY [facility] [place] [facility] Nov 03, 2023 09:00 AM AMBULATORY - PSYCHIATRY [facility] [place] [facility] Jan 11, 2024 10:00 AM AMBULATORY - PSYCHIATRY [facility] [place] [facility] Jan 17, 2024 10:30 AM AMBULATORY - PSYCHIATRY [facility] [place] [facility] Feb 01, 2024 10:00 AM AMBULATORY - PSYCHIATRY [facility] [place] [facility] Feb 09, 2024 10:00 AM AMBULATORY - MEDICINE [facility] C [facility] [place] [facility] Feb 11, 2024 10:45 AM AMBULATORY - NONE [facility] [place] [facility] Feb 16, 2024 11:30 AM AMBULATORY - NONE [facility] [place] [facility] Social History: Smoking Status (Most current) and Tobacco Use (All prior to encounter date) This section includes the most current, and the historical, smoking and tobacco- related health factors from the VA facility where the Encounter took place. Current Smoking Status This section includes the most current smoking, or tobacco-related health factor, from the VA facility where the Encounter took place. Date/Time Current Smoking Status Comment Facil ity Aug 04, 2023 09:00 AM VA-TOBACCO QUIT 15 YRS OR MORE MT [facility] [place] [facility] Tobacco Use History This section includes a history of the smoking, or tobacco-related health factors, that were collected on or before the date of the Encounter. The data comes from the [place] facility where the Encounter took place. Date/Time Smoking Status/Tobacco Use Comment F acility Aug 04, 2023 09:00 AM VA-TOBACCO QUIT 15 YRS OR MORE [facility] [place] [facility] Aug 05, 2022 11:30 AM VA-TOBACCO NEVER USED [facility] [place] [facility] Aug 22, 2021 11:30 AM VA-TOBACCO NEVER USED [facility] [place] [facility] Apr 29, 2020 10:30 AM VA-TOBACCO NEVER USED [place] [facility] [facility] September 21, 2018 09:39 AM VA-TOBACCO FORMER USER [facility] [place] [facility] September 21, 2018 09:39 AM VA-TOBACCO QUIT 15 YRS OR MORE [facility] [place] [facility] Dec 31, 2017 02:50 PM QUIT TOBACCO USE > 7 YEARS AGO [facility] [place] [facility] Dec 31, 2016 09:33 AM QUIT TOBACCO USE > 7 YEARS AGO [facility] [place] [facility] Dec 31, 2016 09:31 AM QUIT TOBACCO USE 1 -7 YEARS AGO [facility] [place] [facility] Jan 08, 2016 01:57 PM QUIT TOBACCO USE > 7 YEARS AGO [facility] [place] [facility] Nov 15, 2014 10:48 AM QUIT TOBACCO USE > 7 YEARS AGO quit [facility] Advance Directives: All historical and current Section Date Range: From patient's date of to the date document was created. This section includes ALL of a patient's completed or amended [place] Advance and Rescinded Directives. The entries below indicate that a directive exists for the patient, but an actual copy is not included with this document. The data comes from all [place] facilities. Date Advance Directives Provider Source Jan 01, 2005 ADVANCE DIRECTIVE [facility] Encounter Notes: All associated encounter notes This section contains the clinical notes associated to the Encounter. Date/Time Encounter Note(s) Provider Source Aug 20, 2023 12:40 PM NONVA NOTE: LOCAL TITLE: [facility] PRESENTING CARE COORD PLAN STANDARD TITLE: NONVA NOTE DATE OF NOTE: AUG 20, 2023@12:40 ENTRY DATE: AUG 20, 2023@12:40:38 AUTHOR: CLAUDIO GIL COSIGNER: URGENCY: STATUS: COMPLETED Emergency Notification Intake Date Presenting to the Facility: Jul Method of Contact: Notified from [facility] worklist Notification ID: [id number] [facility] Referral #: [id number] [facility] Name: Hospital: [facility] Address: City: [place] State: [place] Zip Code: Phone : Community Facility Point of Contact: Name: Candace Phone: Chief complaint: DROOPY LEFT SIDE OF FACE Primary Diagnosis: Disposition Discharged Date of discharge: Jul Discharge to Comment: ER Only /es/ CLAUDIO MASTERSON Signed: 08/20/2023 12:42 Receipt Acknowledged By: 08/20/2023 16:37 /es/ LINDA PALOMINO MD PHYSICIAN 09/07/2023 07:26 /es/ Rossana Fitzpatrick MSN,RN,[facility] TRANSFER/TRAVELING COORDINATOR 08/20/2023 13:11 /es/ REGI LANG, MSN, RN, CNL PRIMARY CARE TEAM NURSE 08/20/2023 13:01 /es/ Anna Cho, income auditor Staff Nurse CLAUDIO GIL [place]
--- OUTSIDE RECORDS SUMMARY | 2024-04-11 18:50 | XMS_ITS | Encounter Summary ---
Author Name Department of [place] Organization [place] Address [address] [place] [id number] Care Team Providers Care Behavioral Health Associate Name Role Phone LINDA PALOMINO Primary Care [...] Relationship to Policy Banegas CAREMARK PRESCRIPT ION [facility] May 03, 2018 [id number] Tracey BLISS PATIENT [facility] Jul 01, 2013 [id number] [facility] CIGNA/NALC PREFERRED PROVIDER ORGANIZAT ION (PPO) [facility] Jul 01, 2013 32 [id number] [facility] CIGNA/NALC PREFERRED PROVIDER ORGANIZAT ION (PPO) [facility] Jan 01, 2011 [id number] Tracey BLISS PATIENT CIGNA/NALC PREFERRED PROVIDER ORGANIZAT ION (PPO) [facility] HEALT H BENEF Jan 01, 2011 [id number] Tracey BLISS PATIENT MEDICARE (WNR) MEDICARE (M) PART B Jul 01, 2013 PART B [id number] Tracey BLISS PATIENT MEDICARE (WNR) MEDICARE (M) PART A Jul 01, 2013 PART A [id number] Tracey BLISS PATIENT MEDICARE (WNR) MEDICARE (M) PART A Jul 01, 2013 PART A [id number] [phone] Tracey BLISS PATIENT [facility] PREFERRED PROVIDER ORGANIZAT ION (PPO) [facility] May 03, 2018 32 [id number] Tracey BLISS PATIENT [facility] (MED PRIME) PREFERRED PROVIDER ORGANIZAT ION (PPO) [facility] Jul 01, 2013 322 [id number] Tracey BLISS PATIENT [facility] (MED PRIME) PREFERRED PROVIDER ORGANIZAT ION (PPO) [facility] Jul 01, 2013 32 [id number] Tracey BLISS PATIENT [facility] -MCR A ONLY Jul 01, 2013 [id number] Tracey BLISS PATIENT [facility]* Jan 01, 2011 [id number] Tracey BLISS PATIENT Selected Encounter This section includes the information on record at [place] for the Encounter. Date/Time Encounter Type Encounter Description Reason Pro vider Source September 10, 2023 12:00 PM Outpatient Encounter COMMUNITY [...] 20 appointments. The data comes from all [place] treatment facilities. Appointment Date/Time Appointment Type Appointme nt Facility Name Oct 08, 2023 01:00 PM AMBULATORY [facility] [place] [facility] Nov 03, 2023 09:00 AM AMBULATORY [facility]IATRY [facility] [place] [facility] Jan 11, 2024 10:00 AM AMBULATORY - PS[facility]CHIATRY [facility] [place] [facility] Jan 17, 2024 10:30 AM AMBULATORY - PS[facility]CHIATRY [facility] [place] [facility] Feb 01, 2024 10:00 AM AMBULATORY - PS[facility]CHIATRY [facility] [place] [facility] Feb 09, 2024 10:00 AM AMBULATORY - MEDICINE [facility] [place] [facility] Feb 11, 2024 10:45 AM AMBULATORY - NONE [facility] [place] [facility] Feb 16, 2024 11:30 AM AMBULATORY - NONE [facility] [place] [facility] Feb 22, 2024 01:45 PM AMBULATORY - MEDICINE [facility] [place] [facility] Social History: Smoking Status (Most current) and Tobacco Use (All prior to encounter date) This section includes the most current, and the historical, smoking and tobacco- related health factors from the [place] facility where the Encounter took place. Current Smoking Status This section includes the most current smoking, or tobacco-related health factor, from the [place] facility where the Encounter took place. Date/Time Current Smoking Status Comment Nora mclaughlin Aug 04, 2023 09:00 AM VA-TOBACCO FORMER USER [place] [facility] [place] [facility] Tobacco Use History This section includes a history of the smoking, or tobacco-related health factors, that were collected on or before the date of the Encounter. The data comes from the [place] facility where the Encounter took place. Date/Time Smoking Status/Tobacco Use Comment F acility Aug 04, 2023 09:00 AM VA-TOBACCO QUIT 15 YRS OR MORE [facility] [place] [facility] Aug 05, 2022 11:30 AM VA-TOBACCO NEVER USED [facility] [place] [facility] Aug 22, 2021 11:30 AM VA-TOBACCO NEVER USED [facility] [place] [facility] Apr 29, 2020 10:30 AM VA-TOBACCO NEVER USED [facility] [place] [facility] September 21, 2018 09:39 AM VA-TOBACCO [facility] September 21, 2018 09:39 AM VA-TOBACCO QUIT 15 YRS OR MORE [facility] Dec 31, 2017 02:50 PM QUIT TOBACCO USE > 7 YEARS AGO [facility] Dec 31, 2016 09:33 AM QUIT TOBACCO USE > 7 YEARS AGO [facility] Dec 31, 2016 09:31 AM QUIT TOBACCO USE 1 -7 YEARS AGO [facility] Jan 08, 2016 01:57 PM QUIT TOBACCO USE > 7 YEARS AGO [facility] Nov 15, 2014 10:48 AM QUIT TOBACCO USE > 7 YEARS AGO quit 1975 [facility] Advance Directives: All historical and current Section Date Range: From patient's date of to the date document was created. This section includes ALL of a patient's completed or amended [place] Advance and Rescinded Directives. The entries below indicate that a directive exists for the patient, but an actual copy is not included with this document. The data comes from all [place] facilities. Date Advance Directives Provider Source Jan 01, 2005 ADVANCE DIRECTIVE KLAUS PAZ [facility] Encounter Notes: All associated encounter notes This section contains the clinical notes associated to the Encounter. Date/Time Encounter Note(s) Provider Source September 10, 2023 12:00 PM NONVA CONSULT: LOCAL TITLE: COMMUNITY CARE-CONSULT RESULT NOTE STANDARD TITLE: NONVA CONSULT DATE OF NOTE: SEPTEMBER 10, 2023@12:00 ENTRY DATE: SEPTEMBER 23, 2023@10:04:44 AUTHOR: MARYANA MENA EXP COSIGNER: URGENCY: STATUS: COMPLETED VistA Imaging - Scanned Document [facility] CTR-OPERATIVE NOTES SCANNED DOCUMENT SIGNATURE NOT REQUIRED Electronically Filed: 09/23/2023 by: MARYANA MENA MORTGAGE ANALYST MARYANA MENA [facility]
--- OUTSIDE RECORDS SUMMARY | 2024-04-11 18:51 | XMS_ITS | Encounter Summary ---
Author Name Department of [place] Organization Department of [place] Address [address] [place] [address] Care Team Providers Care Irrigator Sprinkling System Name Role Phone LINDA PALOMINO Primary Care [...] [facility] May [facility], 2018 [id number] Tracey BLISS PATIENT [facility] MENTAL HEALTH [facility] Jul 01, 2013 322 [id number] [facility] CIGNA/NALC PREFERRED PROVIDER ORGANIZAT ION (PPO) [facility] Jul 01, 2013 32 [id number] Tracey BLISS PATIENT CIGNA/NALC PREFERRED PROVIDER ORGANIZAT ION (PPO) [facility] Jan 01, 2011 [id number] Tracey BLISS PATIENT CIGNA/NALC PREFERRED PROVIDER ORGANIZAT ION (PPO) [facility] HEALT H BENEF Jan 01, 2011 [id number] Tracey BLISS PATIENT MEDICARE (WNR) MEDICARE (M) PART B Jul 01, 2013 PART B [id number] Tracey BLISS PATIENT MEDICARE (WNR) MEDICARE (M) PART A Jul 01, 2013 PART A [id number] [phone] Tracey BLISS PATIENT MEDICARE (WNR) MEDICARE (M) PART A Jul 01, 2013 PART A [id number] Tracey BLISS PATIENT [facility] PREFERRED PROVIDER ORGANIZAT ION (PPO) [facility] May 03, 2018 32 [id number] Tracey BLISS PATIENT [facility] (MED PRIME) PREFERRED PROVIDER ORGANIZAT ION (PPO) [facility] Jul 01, 2013 322 [id number] Tracey BLISS PATIENT [facility] (MED PRIME) PREFERRED PROVIDER ORGANIZAT ION (PPO) [facility] Jul 01, 2013 32 [id number] Tracey BLISS PATIENT [facility] -MCR A ONLY Jul 01, 2013 [id number] Tracey BLISS PATIENT [facility]* Jan 01, 2011 [id number] Tracey BLISS PATIENT Selected Encounter This section includes the information on record at [place] for the Encounter. Date/Time Encounter Type Encounter Description Reason Pro vider Source Oct 12, 2023 07:33 AM Outpatient Encounter TELEPHONE PRIMARY CARE IHE Encounter Template Text not used by [place] Plan of Treatment: Future Appointments (+ 6 [...] 20 appointments. The data comes from all [place] treatment facilities. Appointment Date/Time Appointment Type Appointme nt Facility Name Nov 03, 2023 09:00 AM AMBULATORY - PS[facility]CHIATRY [facility] [place] [facility] Jan 11, 2024 10:00 AM AMBULATORY - PSYCHIATRY [facility] [place] [facility] Jan 17, 2024 10:30 AM AMBULATORY - PSYCHIATRY [facility] [place] [facility] Feb 01, 2024 10:00 AM AMBULATORY - PSYCHIATRY [facility] [place] [facility] Feb 09, 2024 10:00 AM AMBULATORY - MEDICINE [facility] [place] [facility] Feb 11, 2024 10:45 AM AMBULATORY - NONE [facility] [place] [facility] Feb 16, 2024 11:30 AM AMBULATORY - NONE [facility] [place] [facility] Feb 22, 2024 01:45 PM AMBULATORY - MEDICINE [facility] [place] [facility] Mar 24, 2024 11:00 AM AMBULATORY - NONE [facility] [place] [facility] Social History: Smoking Status (Most current) [...] YRS OR MORE [place] [facility] [place] [facility] Tobacco Use History This section includes a history of the smoking, or tobacco-related health factors, that were collected on or before the date of the Encounter. The data comes from the [place] facility where the Encounter took place. Date/Time Smoking Status/Tobacco Use Comment F acility Aug 04, 2023 09:00 AM VA-TOBACCO QUIT 15 YRS OR MORE [facility] [place] [facility] Aug 05, 2022 11:30 AM VA-TOBACCO NEVER USED [facility] [place] [facility] Aug 22, 2021 11:30 AM VA-TOBACCO NEVER USED [facility] [place] [facility] Apr 29, 2020 10:30 AM VA-TOBACCO NEVER USED [facility] [place] [facility] September 21, 2018 09:39 AM VA-TOBACCO [facility] September 21, 2018 09:39 AM VA-TOBACCO QUIT 15 YRS OR MORE [facility] Dec 31, 2017 02:50 PM QUIT TOBACCO USE > 7 YEARS AGO [facility] Dec 31, 2016 09:33 AM QUIT TOBACCO USE > 7 YEARS AGO [facility] Dec 31, 2016 09:31 AM QUIT TOBACCO USE 1 -7 YEARS AGO [facility] Jan 08, 2016 01:57 PM QUIT TOBACCO USE > 7 YEARS AGO [facility] Nov 15, 2014 10:48 AM QUIT TOBACCO USE > 7 YEARS AGO quit 1975 [facility] Advance Directives: All historical and [...] Jan 01, 2005 ADVANCE DIRECTIVE KLAUS PAZ [facility] Encounter Notes: All associated encounter notes This section contains the clinical notes associated to the Encounter. Date/Time Encounter Note(s) Provider Source Oct 12, 2023 07:33 AM PREVENTIVE MEDICIN E NURSING NOTE: LOCAL TITLE: CLINICAL REMINDERS/NURSING STANDARD TITLE: PREVENTIVE MEDICINE NURSING NOTE DATE OF NOTE: OCT 12, 2023@07:33 ENTRY DATE: OCT 12, 2023@07:33:16 AUTHOR: SUSAN MALDONADO EXP COSIGNER: URGENCY: STATUS: COMPLETED Follow Up Colonoscopy: Colonoscopy is due based on information available to this reminder. Prior/outside Colonoscopy results: [place] 09/10/23, repeat 3yrs. [facility] Date: September 10, 2023 Colonoscopy reminder set 3 years from OCT 12, 2023. /darcy/ Susan Maldonado MSN RN CNL Primary Care RN Signed: 10/12/2023 07:33 SUSAN MALDONADO [facility]
--- OUTSIDE RECORDS SUMMARY | 2024-04-11 18:51 | XMS_ITS | Encounter Summary ---
Author Name [facility] [place] Address [address] [place] [address] Care Team Providers Care Dermatopathologist Name Role Phone LINDA PALOMINO Primary Care [...] Relationship to Policy Banegas CAREMARK PRESCRIPT ION [facility] May 03, 2018 [id number] Tracey BLISS PATIENT [facility] MENTAL HEALTH [facility] Jul 01, 2013 [id number] Tracey BLISS PATIENT CIGNA/NALC PREFERRED PROVIDER ORGANIZAT ION (PPO) [facility] Jul 01, 2013 32 [id number] Tracey BLISS PATIENT CIGNA/NALC PREFERRED PROVIDER ORGANIZAT ION (PPO) [facility] Jan 01, 2011 321 [id number] Tracey BLISS PATIENT CIGNA/NALC PREFERRED PROVIDER ORGANIZAT ION (PPO) [facility] HEALT H BENEF Jan 01, 2011 [id number] Tracey BLISS PATIENT MEDICARE (WNR) MEDICARE (M) PART B Jul 01, 2013 PART B [id number] Tracey LBISS PATIENT MEDICARE (WNR) MEDICARE (M) PART A Jul 01, 2013 PART A [id number] [phone] Tracey BLISS PATIENT MEDICARE (WNR) MEDICARE (M) PART A Jul 01, 2013 PART A [id number] [phone] Tracey BLISS PATIENT [facility] PREFERRED PROVIDER ORGANIZAT ION (PPO) [facility] May 03, 2018 32 [id number] Tracey BLISS PATIENT [facility] (MED PRIME) PREFERRED PROVIDER ORGANIZAT ION (PPO) [facility] Jul 01, 2013 322 [id number] Tracey BLISSH PATIENT [facility] (MED PRIME) PREFERRED PROVIDER ORGANIZAT ION (PPO) [facility] Jul 01, 2013 32 [id number] Tracey BLISSH PATIENT [facility] -MCR A ONLY Jul 01, 2013 [id number] Tracey BLISSH PATIENT [facility]* Jan 01, 2011 [id number] Tracey BLISS PATIENT Selected Encounter This section includes the information on record at [place] for the Encounter. Date/Time Encounter Type Encounter Description Reason Provider Source Nov 03, 2023 09:00 AM PSYTX W PT 45 MINUTES [facility] - IND ICD-10-CM F43.12 Post-traumatic stress disorder, chronic ROSENDO CRUZ E Encounter Template Text not used by [place] Assessments - Encounter Diagnoses This section includes the primary and secondary diagnoses documented for the Encounter. Date/Time Primary/Secondary Diagnosis Diagnosis Name Provider Source Nov 03, 2023 10:34 AM PRIMARY Post-traumatic stress disorder, chronic ROSENDO CRUZ [place] [facility] [facility] Nov 03, 2023 10:34 AM SECONDARY Allergic rhinitis, unspecified ROSENDO CRUZ [place] [facility] [place] [facility] Nov 03, 2023 10:34 AM SECONDARY Holland's palsy ROSENDO CURZ [place] [facility] [place] [facility] Nov 03, 2023 10:34 AM SECONDARY Chronic sinusitis, unspecified ROSENDO CRUZ [place] [facility] [facility] Nov 03, 2023 10:34 AM SECONDARY Pain, unspecified ROSENDO CRUZ [place] [facility] [place] [facility] Plan of Treatment: Future Appointments (+ 6 months) and Future Tests (+/- 45 days) The Plan of Treatment section includes future care activities for the patient from all [place] [facility] This section includes future appointments and future orders which are active, pending or scheduled. Future Appointments This section includes appointments that were scheduled to occur 6 months from the date of the Encounter, up to a maximum of 20 appointments. The data comes from all [place] treatment facilities. Appointment Date/Time Appointment Type Appointme nt Facility Name Jan 11, 2024 10:00 AM AMBULATORY - PSYCHIATRY [facility] [place] [facility] Jan 17, 2024 10:30 AM AMBULATORY - PSYCHIATRY [facility] [place] [facility] Feb 01, 2024 10:00 AM AMBULATORY - PSYCHIATRY [facility] [place] [facility] Feb 09, 2024 10:00 AM AMBULATORY - MEDICINE [facility] [place] [facility] Feb 11, 2024 10:45 AM AMBULATORY - NONE [facility] [place] [facility] Feb 16, 2024 11:30 AM AMBULATORY - NONE [facility] [place] [facility] Feb 22, 2024 01:45 PM AMBULATORY - MEDICINE [place] [facility] [facility] Mar 24, 2024 11:00 AM AMBULATORY - NONE [facility] [place] [facility] Apr 17, 2024 12:30 PM AMBULATORY - MEDICINE [place] [facility] [facility] Apr 17, 2024 01:00 PM AMBULATORY - MEDICINE [place] [facility] [facility] Social History: Smoking Status (Most current) and Tobacco Use (All prior to encounter date) This section includes the most current, and the historical, smoking and tobacco- related health factors from the [place] facility where the Encounter took place. Current Smoking Status This section includes the most current smoking, or tobacco-related health factor, from the [place] facility where the Encounter took place. Date/Time Current Smoking Status Comment Nora ity Aug 04, 2023 09:00 AM [facility]ACCO [facility] [place] [facility] Tobacco Use History This section includes a history of the smoking, or tobacco-related health factors, that were collected on or before the date of the Encounter. The data comes from the [place] facility where the Encounter took place. Date/Time Smoking Status/Tobacco Use Comment Len acility Aug 04, 2023 09:00 AM VA-TOBACCO QUIT 15 YRS OR MORE [place] [facility] [facility] Aug 05, 2022 11:30 AM VA-TOBACCO NEVER USED [place] [facility] [place] [facility] Aug 22, 2021 11:30 AM VA-TOBACCO NEVER USED [place] [facility] [facility] Apr 29, 2020 10:30 AM VA-TOBACCO NEVER USED [place] [facility] [place] [facility] September 21, 2018 09:39 AM VA-TOBACCO FORMER USER [place] [facility] [place] [facility] September 21, 2018 09:39 AM VA-TOBACCO QUIT 15 YRS OR MORE [place] [facility] [place] [facility] Dec 31, 2017 02:50 PM QUIT TOBACCO USE > 7 YEARS AGO [facility] [place] [facility] Dec 31, 2016 09:33 AM QUIT TOBACCO USE > 7 YEARS AGO [facility] [place] [facility] Dec 31, 2016 09:31 AM QUIT TOBACCO USE 1 -7 YEARS AGO [facility] [place] [facility] Jan 08, 2016 01:57 PM QUIT TOBACCO USE > 7 YEARS AGO [facility] [place] [facility] Nov 15, 2014 10:48 AM QUIT TOBACCO USE > 7 YEARS AGO quit 1975 [place] [facility] [place] [facility] Advance Directives: All historical and current Section Date Range: From patient's date of to the date document was created. This section includes ALL of a patient's completed or amended [place] Advance and Rescinded Directives. The entries below indicate that a directive exists for the patient, but an actual copy is not included with this document. The data comes from all [place] facilities. Date Advance Directives Provider Source Jan 01, 2005 ADVANCE DIRECTIVE KLAUS PAZ [place] [facility] [place] [facility] Encounter Notes: All associated encounter notes This section contains the clinical notes associated to the Encounter. Date/Time Encounter Note(s) Provider Source Nov 03, 2023 09:42 AM PSYCHOLOGY NOTE: LOCAL TITLE: PSYCHOLOGY NOTE STANDARD TITLE: PSYCHOLOGY NOTE DATE OF NOTE: NOV 03, 2023@09:42 ENTRY DATE: NOV 03, 2023@09:42:39 AUTHOR: ROSENDO CRUZ EXP COSIGNER: URGENCY: STATUS: COMPLETED INFORMED CONSENT REVIEWED: At beginning of session reviewed rights and limits of confidentiality, mandatory reporting situations, duty to warn and protect, [place] Warning, (if treatment team finds patient to be an acute danger to himself or others, that this information could be relayed to a court of law and presented to a cardiac cath lab manager), and 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 Provided Suicide Prevention Hotline number, and other contact numbers as necessary. VISIT DURATION 45 minutes DIAGNOSES: PTSD [employer] STATEMENT OF GOALS/CONCERNS: The bill is coming up and at first I was told it wasn't going to be covered and they screwed it up. I've been working on it ever since..I talked the insurance company and they said I only have to pay $300 but I am still going to send it the VA to see as it was secondary. From now on I'm going to the [facility] first. I went to the patient care suite last visit. Other than that, things have been busy. 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 I'm having more trouble going to sleep so I'm watching TV at night lying down on the couch and 99% of the time I can get back to sleep. I get maybe five hours. I can get at least 2.5 hours without interruption. My tells me sometimes that I holler in my sleep. I snore a lot and have a lot of drooling...I sleep on the right side and I have a tendency to put my hand there to catch the drool. I'm not sure if that's part of the Holland's Palsy and the headaches from the allergies. I'm going to see the doctor in January but if things get worse, I'll go earlier. My and I still sleep separately...she's retired now for a few years but she did some work for 2 years before her replacement came in. Now we both get up earlier for the kids. 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 SESSION FOCUS: update from past month, symptoms, medical issues, recent events, measurement for baseline INTERVENTIONS: Psychotherapeutic Interventions: supportive counselng, measurement for baseline - Marshall's symptoms are subclinical, planning around anniversary triggers, strength based perspective ASSESSMENT: BRIEF ASSESSMENT OF MENTAL STATUS: 1. Appearance (grooming, attire, apparent age) within normal limits: Yes 2. Thought content was organized and goal directed: Yes 3. Speech was coherent and unimpaired: Yes 4. Affect was appropriate and unremarkable: Yes 5. Demeanor was calm, with no signs of agitation or restlessness: Yes 6. Sleep was largely unimpaired and restful: No Trouble with onset and frequent disruption 7. No evidence of psychosis (hallucinations or delusions): Yes 8. Mood was normal: Yes upbeat Other Observations: Denied depressive symptoms, focused on pain and extremely clear and lucid in thought MEASUREMENT: Provided psychoeducation on the role of Measurement Based Care (MBC) in treatment and agreed to follow measurement over time with the following intervals: Monthly Administered the following measures and discussed results, including changes since last assessment: GUNNER=12 subthreshold Insomnia GDS= 1 (unremarkable)PCL-5=25 (subclinical) PTSD Checklist 5 (PCL 5) = 25 This measures symptoms associated with PTSD on a scale from 0 to 80, with scores at or above 33 suggestive of clinically significant symptoms associated with PTSD PLAN FOR FOLLOW-UP: monthly sessions Next session planned for: Wednesday December 06, 2023 -at 10am (45) f2f*Note: Please cancel Latrell for 12/30/2023 and reschedule as will be out of town from 12/29/2023 until 01/12/2024 /darcy/ ROSENDO CRUZ PSYD PSYCHOLOGIST Signed: 11/03/2023 10:34 Receipt Acknowledged By: 11/03/2023 21:15 /es/ ELIEL ALEMAN, RN,MSN,PSYCH N.P., STAFF CLINICAL NURSE SPECIALIST ROSENDO CRUZ [facility]
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
--- OUTSIDE RECORDS SUMMARY | 2024-04-11 18:51 | XMS_ITS | Encounter Summary ---
Author Name [facility] [place] Organization [place] Address [address] [place] [id number] Care Team Providers Care Room Service Attendant Name Role Phone LINDA PALOMINO Primary Care [...] Relationship to Policy Banegas CAREMARK PRESCRIPT ION [facility] May 03, 2018 [id number] [phone] Tracey BLISS PATIENT [facility] MENTAL HEALTH [facility] Jul 01, 2013 [id number] [facility] CIGNA/NALC PREFERRED PROVIDER ORGANIZAT ION (PPO) [facility] Jul 01, 2013 [id number] Tracey BLISS PATIENT CIGNA/NALC PREFERRED PROVIDER ORGANIZAT ION (PPO) [facility] Jan 01, 2011 [id number] Tracey BLISS PATIENT CIGNA/NALC PREFERRED PROVIDER ORGANIZAT ION (PPO) [facility] Jan 01, 2011 [id number] Tracey BLISS PATIENT MEDICARE (WNR) MEDICARE (M) PART B Jul 01, 2013 PART B [id number] [phone] Tracey BLISS PATIENT MEDICARE (WNR) MEDICARE (M) PART A Jul 01, 2013 PART A [id number] [phone] [id number] Tracey BLISS PATIENT MEDICARE (WNR) MEDICARE (M) PART A Jul 01, 2013 PART A [id number] [phone] Tracey BLISS PATIENT [facility] PREFERRED PROVIDER ORGANIZAT ION (PPO) [facility] May 03, 2018 [id number] Tracey BLISS PATIENT [facility] (MED PRIME) PREFERRED PROVIDER ORGANIZAT ION (PPO) [facility] FAMIL Y Jul 01, 2013 [id number] Tracey BLISS PATIENT [facility] (MED PRIME) PREFERRED PROVIDER ORGANIZAT ION (PPO) [facility] Jul 01, 2013 32 [id number] Tracey BLISS PATIENT [facility] MENTAL HEALTH [facility] -MCR A ONLY Jul 01, 2013 [id number] Tracey BLISS PATIENT [facility]* Jan 01, 2011 [id number] Tracey BLISS PATIENT Selected Encounter This section includes the information on record at [place] for the Encounter. Date/Time Encounter Type Encounter Description Reason Pro vider Source September 10, 2023 12:00 AM Outpatient Encounter EVENT (HISTORICAL) [facility] Encounter Template Text not used by [place] Plan of Treatment: Future Appointments (+ 6 [...] AMBULATORY - PSYCHIATRY [facility] [place] [facility] Nov 03, 2023 09:00 AM AMBULATORY - PSYCHIATRY [facility] [place] [facility] Jan 11, 2024 10:00 AM AMBULATORY - PSYCHIATRY [facility] [place] [facility] Jan 17, 2024 10:30 AM AMBULATORY - PSYCHIATRY [facility] [place] [facility] Feb 01, 2024 10:00 AM AMBULATORY - PSYCHIATRY [facility] [place] [facility] Feb 09, 2024 10:00 AM AMBULATORY - MEDICINE [facility] [place] [facility] Feb 11, 2024 10:45 AM AMBULATORY - NONE [facility] [place] [facility] Feb 16, 2024 11:30 AM AMBULATORY - NONE [facility] [place] [facility] Feb 22, 2024 01:45 PM AMBULATORY - MEDICINE [place] [facility] [place] [facility] Social History: Smoking Status (Most current) [...] 04, 2023 09:00 AM VA-TOBACCO FORMER USER [place] [facility] [place] [facility] Tobacco Use History This section includes a history of the smoking, or tobacco-related health factors, that were collected on or before the date of the Encounter. The data comes from the [place] facility where the Encounter took place. Date/Time Smoking Status/Tobacco Use Comment F acility Aug 04, 2023 09:00 AM VA-TOBACCO QUIT 15 YRS OR MORE [facility] [place] [facility] Aug 05, 2022 11:30 AM VA-TOBACCO NEVER USED [facility] [place] [facility] Aug 22, 2021 11:30 AM VA-TOBACCO NEVER USED [facility] [place] [facility] Apr 29, 2020 10:30 AM VA-TOBACCO NEVER USED [facility] [place] [facility] September 21, 2018 09:39 AM [facility]ACCO [facility] September 21, 2018 09:39 AM VA-TOBACCO QUIT [facility] YRS [facility] Dec 31, 2017 02:50 PM QUIT TOBACCO USE > 7 YEARS AGO [facility] Dec 31, 2016 09:33 AM QUIT TOBACCO USE > 7 YEARS AGO [facility] Dec 31, 2016 09:31 AM QUIT TOBACCO USE 1 -7 YEARS A[facility] Jan 08, 2016 01:57 PM QUIT TOBACCO USE > 7 YEARS AGO [facility] Nov 15, 2014 10:48 AM QUIT TOBACCO USE > 7 YEARS AGO quit 1975 [facility] Advance Directives: All historical and current [...] Jan 01, 2005 ADVANCE DIRECTIVE K[facility]US PAZ [facility]
--- OUTSIDE RECORDS SUMMARY | 2024-04-11 18:52 | XMS_ITS ---
Author Name [place] Address [address] [place] [id number] Care Team Providers Care Social Insurance Analyst Name Role Phone LINDA PALOMINO Primary Care [...] Relationship to Policy Banegas CAREMARK PRESCRIPT ION [facility] May 03, 2018 [id number] Tracey RAYO PATIENT [employer] BEH[employer]IOR[employer] HE[employer] MENTAL HEALTH [facility] Jul 01, 2013 [id number] Tracey RAYO PATIENT CIGNA/NALC PREFERRED PROVIDER ORGANIZAT ION (PPO) [facility] Jul 01, 2013 32 [id number] [phone] Tracey RAYO PATIENT CIGNA/NALC PREFERRED PROVIDER ORGANIZAT ION (PPO) [facility] Jan 01, 2011 [id number] [phone] Tracey RAYO PATIENT CIGNA/NALC PREFERRED PROVIDER ORGANIZAT ION (PPO) [facility] HEALT H BENEF Jan 01, 2011 [id number] [phone] Tracey RAYO PATIENT MEDICARE (WNR) MEDICARE (M) PART B Jul 01, 2013 PART B [id number] Tracey RAYO PATIENT MEDICARE (WNR) MEDICARE (M) PART A Jul 01, 2013 PART A [id number] [phone] Tracey RAYO PATIENT MEDICARE (WNR) MEDICARE (M) PART A Jul 01, 2013 PART A [id number] Tracey RAYO PATIENT [facility] PREFERRED PROVIDER ORGANIZAT ION (PPO) [facility] May 03, 2018 32 [id number] [phone] Tracey RAYO PATIENT [facility] (MED PRIME) PREFERRED PROVIDER ORGANIZAT ION (PPO) [facility] Jul 01, 2013 [id number] Tracey RAYOH PATIENT [facility] (MED PRIME) PREFERRED PROVIDER ORGANIZAT ION (PPO) [facility] Jul 01, 2013 32 [id number] Tracey RAYO PATIENT [facility]AL [facility] -MCR A ONLY Jul 01, 2013 [id number] Tracey RAYO PATIENT [facility]* Jan 01, 2011 [id number] Tracey RAYO PATIENT Selected Encounter This section includes the information on record at [place] for the Encounter. Date/Time Encounter Type Encounter Description Reason Provider Source Nov 03, 2023 10:04 AM Outpatient Encounter [facility] Encounter Template Text not used by [place] Plan of Treatment: Future Appointments (+ 6 [...] 20 appointments. The data comes from all [place] treatment facilities. Appointment Date/Time Appointment Type Appointme nt Facility Name Jan 11, 2024 10:00 AM AMBULATORY - [facility]IATRY [facility] [place] [facility] Jan 17, 2024 10:30 AM AMBULATORY [facility]IATRY [facility] [place] [facility] Feb 01, 2024 10:00 AM AMBULATORY - PS[facility]IATRY [facility] [place] [facility] Feb 09, 2024 10:00 AM AMBULATORY - MEDICINE [facility] [place] [facility] Feb 11, 2024 10:45 AM AMBULATORY - NONE [facility] [place] [facility] Feb 16, 2024 11:30 AM AMBULATORY - NONE [facility] [place] [facility] Feb 22, 2024 01:45 PM AMBULATORY - MEDICINE [facility] [place] [facility] Mar 24, 2024 11:00 AM AMBULATORY - NONE [facility] [place] [facility] Apr 17, 2024 12:30 PM AMBULATORY - MEDICINE [place] [facility] [place] [facility] Apr 17, 2024 01:00 PM AMBULATORY - MEDICINE [place] [facility] [place] [facility] Social History: Smoking Status (Most current) and [...] AM VA-TOBACCO QUIT 15 YRS OR MORE [facility] [place] [facility] Tobacco Use History This section includes a history of the smoking, or tobacco-related health factors, that were collected on or before the date of the Encounter. The data comes from the [place] facility where the Encounter took place. Date/Time Smoking Status/Tobacco Use Comment F acility Aug 04, 2023 09:00 AM VA-TOBACCO QUIT 15 YRS OR MORE [facility] [place] [facility] Aug 05, 2022 11:30 AM VA-TOBACCO NEVER USED [facility] [place] [facility] Aug 22, 2021 11:30 AM VA-TOBACCO NEVER USED [facility] [place] [facility] Apr 29, 2020 10:30 AM [facility] September 21, 2018 09:39 AM [facility] September 21, 2018 09:39 AM VA-TOBACCO QUIT 15 YRS OR [facility] Dec 31, 2017 02:50 PM QUIT TOBACCO USE > 7 YE[facility] A[facility] Dec 31, 2016 09:33 AM QUIT TOBACCO USE > 7 YE[facility] A[facility] Dec 31, 2016 09:31 AM QUIT TOBACCO USE 1 -[facility] Jan 08, 2016 01:57 PM QUIT TOBACCO USE > 7 YEARS AGO [facility] Nov 15, 2014 10:48 AM QUIT TOBACCO USE > 7 YEARS AGO [facility] [address] [facility] Advance Directives: All historical and current Section Date Range: From patient's date of to the date document was created. This section includes ALL of a patient's completed or amended [place] Advance and Rescinded Directives. The entries below indicate that a directive exists for the patient, but an actual copy is not included with this document. The data comes from all [place] facilities. Date Advance Directives Provider Source Jan 01, 2005 ADVANCE DIRECTIVE KLAUS PAZ ES [facility] Encounter Notes: All associated encounter notes This section contains the clinical notes associated to the Encounter. Date/Time Encounter Note(s) Provider Source Nov 03, 2023 10:35 AM MENTAL HEALTH DIAG NOSTIC STUDY NOTE: LOCAL TITLE: MENTAL HEALTH DIAGNOSTIC STUDY STANDARD TITLE: MENTAL HEALTH DIAGNOSTIC STUDY NOTE DATE OF NOTE: NOV 03, 2023@10:35:38 ENTRY DATE: NOV 03, 2023@10:35:38 AUTHOR: ROSENDO CRUZ EXP COSIGNER: URGENCY: STATUS: COMPLETED Insomnia Severity Index Date Given: 11/03/2023 Clinician: Rosendo Cruz Location: [facility]/no/comp Pen/charlette/bay : Mark Rayo Jr SSN: [id number] : [birth year]) Gender: Male GUNNER score: 12 Score categories: 0 - 7 No clinically significant insomnia 8 - 14 Subthreshold insomnia 15 - 21 Clinical insomnia (moderate severity) 22 - 28 Clinical insomnia (severe) Questions and Answers 1. Difficulty falling asleep. Moderate 2. Difficulty staying asleep. Moderate 3. Problems waking up too early. Moderate 4. How SATISFIED/DISSATISFIED are you with your CURRENT sleep pattern? Moderately satisfied 5. How NOTICEABLE to others do you think your sleep problem is in terms of impairing the quality of your life? A little 6. How WORRIED/DISTRESSED are you about your current sleep problem? Somewhat 7. To what extent do you consider your sleep problem to INTERFERE with your daily functioning (e.g. daytime fatigue, mood, ability to function at work/daily chores, concentration, memory, mood, etc.) CURRENTLY? A little Information contained in this note is based on a self-report assessment and is not sufficient to use alone for diagnostic purposes. Assessment results should be verified for accuracy and used in conjunction with other diagnostic activities and procedures. Geriatric Depression Scale Date Given: 11/03/2023 Clinician: Rosendo Cruz Location: [facility]//[facility]//bay : Mark Rayo, SSN: [id number] : [birth year] ([birth year]) Gender: Male GDS Mood Scale Score: 1 Although differing sensitivities and specificities have been obtained across studies, for clinical purposes a score greater than 5 is suggestive of depression and should warrant a follow-up interview. Scores greater than 10 almost always indicate depression. Questions and Answers 1. Are you basically satisfied with your life? Yes 2. Have you dropped many of your activities and interests? No 3. Do you feel that your life is empty? No 4. Do you often get bored? No 5. Are you in good spirits most of the time? Yes 6. Are you afraid that something bad is going to happen to you? No 7. Do you feel happy most of the time? Yes 8. Do you often feel helpless? No 9. Do you prefer to stay at home, rather than going out and doing new things? No 10. Do you feel you have more problems with memory than most? No 11. Do you think it is wonderful to be alive now? Yes 12. Do you feel pretty worthless the way you are now? No 13. Do you feel full of energy? No 14. Do you feel that your situation is hopeless? No 15. Do you think that most people are better off than you are? No Information contained in this note is based on a self-report assessment and is not sufficient to use alone for diagnostic purposes. Assessment results should be verified for accuracy and used in conjunction with other diagnostic activities and procedures. PCL-5 Date Given: 11/03/2023 Clinician: Rosendo Cruz Location: [facility]/roxann/yolande Wright/charlette/bay : Mark Rayo, SSN: [id number] : [birth year] ([birth year]) Gender: Male PCL-5 Score: 25 This measure assesses an individual's perception of the distress associated with possible PTSD symptoms. It is not used to diagnose PTSD. Symptoms are rated from 0-4 in terms of distress they cause the individual. Scores that are greater than or equal to 31-33 suggest that the may meet the criteria for a PTSD diagnosis. However, it is important to use caution when using this cutoff since it is possible for some Veterans with scores lower than 31-33 to meet criteria for PTSD. Additional testing using a structured diagnostic interview, such as the Clinician Administered PTSD Scale for DSM-5, is recommended to confirm diagnostic status. Values range from 0 to 80 with higher scores indicating more probable PTSD. Questions and Answers: 1. Repeated, disturbing, and unwanted memories of the stressful experience? Moderately 2. Repeated, disturbing dreams of the stressful experience? Moderately 3. Suddenly feeling or acting as if the stressful experience were actually happening again (as if you were actually back there reliving it)? A little bit 4. Feeling very upset when something reminded you of the stressful experience? A little bit 5. Having strong physical reactions when something reminded you of the stressful experience (for example, heart pounding, trouble breathing, sweating)? A little bit 6. Avoiding memories, thoughts, or feelings related to the stressful experience? Moderately 7. Avoiding external reminders of the stressful experience (for example, people, places, conversations, activities, objects, or situations)? Moderately 8. Trouble remembering important parts of the stressful experience? A little bit 9. Having strong negative beliefs about yourself, other people, or the world (for example, having thoughts such as: I am bad, there is something seriously wrong with me, no one can be trusted, the world is completely dangerous)? A little bit 10. Blaming yourself or someone else for the stressful experience or what happened after it? Not at all 11. Having strong negative feelings such as fear, horror, anger, guilt, or shame? A little bit 12. Loss of interest in activities that you used to enjoy? A little bit 13. Feeling distant or cut off from other people? A little bit 14. Trouble experiencing positive feelings (for example, being unable to feel happiness or have loving feelings for people close to you)? A little bit 15. Irritable behavior, angry outbursts, or acting aggressively? A little bit 16. Taking too many risks or doing things that could cause you harm? Not at all 17. Being superalert or watchful or on guard? Quite a bit 18. Feeling jumpy or easily startled? A little bit 19. Having difficulty concentrating? A little bit 20. Trouble falling or staying asleep? Moderately Information contained in this note is based on a self-report assessment and is not sufficient to use alone for diagnostic purposes. Assessment results should be verified for accuracy and used in conjunction with other diagnostic activities and procedures. /darcy/ ROSENDO CRUZ PSYD PSYCHOLOGIST Signed: 11/03/2023 10:40 ROSENDO CRUZ [place] [facility]
--- OUTSIDE RECORDS SUMMARY | 2024-04-11 18:53 | XMS_ITS | Encounter Summary ---
Author Name [facility] [place] Organization [place] Address [address] [place] [address] Care Team Providers Care Costume Mistress Name Role Phone LINDA PALOMINO Primary Care [...] Relationship to Policy Banegas CAREMARK PRESCRIPT ION [facility] May 03, 2018 [id number] Tracey BLISS PATIENT [employer] BEH[employer] HE[employer] MENTAL HEALTH [facility] Jul 01, 2013 [id number] [facility] CIGNA/NALC PREFERRED PROVIDER ORGANIZAT ION (PPO) [facility] Jul 01, 2013 32 [id number] [facility] CIGNA/NALC PREFERRED PROVIDER ORGANIZAT ION (PPO) [facility] Jan 01, 2011 321 [id number] Tracey BLISS PATIENT CIGNA/NALC PREFERRED PROVIDER ORGANIZAT ION (PPO) [facility] HEALT H BENEF Jan 01, 2011 [id number] Tracey BLISS PATIENT MEDICARE (WNR) MEDICARE (M) PART B Jul 01, 2013 PART B [id number] Tracey BLSIS PATIENT MEDICARE (WNR) MEDICARE (M) PART A Jul 01, 2013 PART A [id number] [phone] Tracey BLISS PATIENT MEDICARE (WNR) MEDICARE (M) PART A Jul 01, 2013 PART A [id number] [phone] Tracey BLISS PATIENT [facility] PREFERRED PROVIDER ORGANIZAT ION (PPO) [facility] May 03, 2018 32 [id number] Tracey BLISS PATIENT [facility] (MED PRIME) PREFERRED PROVIDER ORGANIZAT ION (PPO) [facility] FAM[facility] Jul 01, 2013 322 [id number] Tracey BLISS PATIENT [facility] (MED PRIME) PREFERRED PROVIDER ORGANIZAT ION (PPO) [facility] Jul 01, 2013 32 [id number] Tracey BLISS PATIENT [facility] M[facility]AL HEALTH [facility] -MCR A ONLY Jul 01, 2013 [id number] Tracey BLISS PATIENT [facility]* Jan 01, 2011 [id number] Tracey BLISS PATIENT Selected Encounter This section includes the information on record at [place] for the Encounter. Date/Time Encounter Type Encounter Description Reason Pro vider Source Nov 26, 2023 12:00 PM Outpatient Encounter [facility] [...] [facility] [place] [facility] Apr 17, 2024 12:30 PM AMBULATORY - MEDICINE [facility] [place] [facility] Apr 17, 2024 01:00 PM AMBULATORY - MEDICINE [facility] [place] [facility] May 23, 2024 11:30 AM AMBULATORY - PSYCHIATRY [facility] [place] [facility] May 24, 2024 10:30 AM AMBULATORY - MEDICINE [place] [facility] [place] [facility] Social History: Smoking Status (Most current) and Tobacco Use (All prior to encounter date) This section includes the most current, and the historical, smoking and tobacco- related health factors from the [place] facility where the Encounter took place. Current Smoking Status This section includes the most current smoking, or tobacco-related health factor, from the [place] facility where the Encounter took place. Date/Time Current Smoking Status Comment Facil ity Aug 04, 2023 09:00 AM [facility] Tobacco Use History This section includes [...] 05, 2022 11:30 AM VA-TOBACCO NEVER USED [place] [facility] [place] [facility] Aug 22, 2021 11:30 AM VA-TOBACCO NEVER USED [facility] [place] [facility] Apr 29, 2020 10:30 AM VA-TOBACCO NEVER USED [facility] [place] [facility] September 21, 2018 09:39 AM VA-TOBACCO FORMER USER [place] [facility] [place] [facility] September 21, 2018 09:39 AM VA-TOBACCO QUIT 15 YRS OR MORE [facility] [place] [facility] Dec 31, 2017 02:50 PM QUIT TOBACCO USE > 7 YEARS AGO [facility] [place] [facility] Dec 31, 2016 09:33 AM QUIT TOBACCO USE > 7 YEARS AGO [facility] [place] [facility] Dec 31, 2016 09:31 AM QUIT TOBACCO USE 1 -7 YEARS AGO [facility] [place] [facility] Jan 08, 2016 01:57 PM QUIT TOBACCO USE > 7 YEARS AGO [facility] [place] [facility] Nov 15, 2014 10:48 AM QUIT TOBACCO USE > 7 YEARS AGO quit 1975 [place] [facility] Advance Directives: All historical and current [...] 01, 2005 ADVANCE DIRECTIVE KLAUS PAZ ES [place] [facility] [place] [facility] Encounter Notes: All associated encounter notes This section contains the clinical notes associated to the Encounter. Date/Time Encounter Note(s) Provider Source Nov 26, 2023 12:00 PM NONVA CONSULT: LOCAL TITLE: COMMUNITY CARE-CONSULT RESULT NOTE STANDARD TITLE: NONVA CONSULT DATE OF NOTE: NOV 26, 2023@12:00 ENTRY DATE: DEC 22, 2023@11:59:47 AUTHOR: ANGIE MENDIETA COSIGNER: URGENCY: STATUS: COMPLETED VistA Imaging - Scanned Document SCANNED DOCUMENT SIGNATURE NOT REQUIRED Electronically Filed: 12/22/2023 by: ANGIE DICKSON [facility]
--- OUTSIDE RECORDS SUMMARY | 2024-04-11 18:53 | XMS_ITS | Encounter Summary ---
Author Name [facility] [place] [facility] [place] Organization [facility] [place] [facility] [place] Address [address] [place] [address] Care Team Providers Care Church Warden Name Role Phone LINDA PALOMINO Primary Care [...] Relationship to Policy Banegas CAREMARK PRESCRIPT ION [facility] May 03, 2018 [id number] [phone] Tracey BLISS PATIENT [facility] Jul 01, 2013 [id number] Tracey BLISS PATIENT CIGNA/NALC PREFERRED PROVIDER ORGANIZAT ION (PPO) [facility] Jul 01, 2013 32 [id number] [phone] Tracey BLISS PATIENT [employer] PREFERRED PROVIDER ORGANIZAT ION (PPO) [facility] Jan 01, 2011 [id number] Tracey BLISS PATIENT [employer]NA[employer] PREFERRED PROVIDER ORGANIZAT ION (PPO) [facility] HEALT H BENEF Jan 01, 2011 [id number] Tracey BLISS PATIENT MEDICARE (WNR) MEDICARE (M) PART B Jul 01, 2013 PART B [id number] Tracey BLISS PATIENT MEDICARE (WNR) MEDICARE (M) PART A Jul 01, 2013 PART A [id number] Tracey BLISS PATIENT MEDICARE (WNR) MEDICARE (M) PART A Jul 01, 2013 PART A [id number] Tracey BLISS PATIENT [facility] PREFERRED PROVIDER ORGANIZAT ION (PPO) [facility] May 03, 2018 [id number] Tracey BLISS PATIENT [facility] (MED PRIME) PREFERRED PROVIDER ORGANIZAT ION (PPO) [facility] Jul 01, 2013 [id number] Tracey BLISSH PATIENT [facility] (MED PRIME) PREFERRED PROVIDER ORGANIZAT ION (PPO) [facility] Jul 01, 2013 32 [id number] Tracey BLISSH PATIENT [facility] -MCR A ONLY Jul 01, 2013 [id number] Tracey BLISSH PATIENT [facility]* Jan 01, 2011 [id number] Tracey BLISS PATIENT Selected Encounter This section includes the information on record at [place] for the Encounter. 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 Date/Time Primary/Secondary Diagnosis Diagnosis Name Provider Source Jan 21, 2024 12:45 PM PRIMARY Holland's palsy ROSENDO CRZU [facility] [place] [facility] Jan 21, 2024 12:45 PM SECONDARY Post-traumatic stress disorder, chronic ROSENDO CRUZ [facility] [place] [facility] Plan of Treatment: Future Appointments (+ 6 months) and Future Tests (+/- 45 days) The Plan of Treatment section includes future care activities for the patient from [facility] This section includes future appointments and future orders which are active, pending or scheduled. Future Appointments This section includes appointments that were scheduled to occur 6 months from the date of the Encounter, up to a maximum of 20 appointments. The data comes from all [place] treatment facilities. Appointment Date/Time Appointment Type Appointme nt Facility Name Jan 17, 2024 10:30 AM AMBULATORY - PSYCHIATRY [facility] [place] [facility] Feb 01, 2024 10:00 AM AMBULATORY - PSYCHIATRY [facility] [place] [facility] Feb 09, 2024 10:00 AM AMBULATORY - MEDICINE PR C [facility] [place] [facility] Feb 11, 2024 10:45 AM AMBULATORY - NONE [facility] [place] [facility] Feb 16, 2024 11:30 AM AMBULATORY - NONE [facility] [place] [facility] Feb 22, 2024 01:45 PM AMBULATORY - MEDICINE PR C [facility] [place] [facility] Mar 24, 2024 11:00 AM AMBULATORY - NONE [facility] [place] [facility] Apr 17, 2024 12:30 PM AMBULATORY - MEDICINE PR C [facility] [place] [facility] Apr 17, 2024 01:00 PM AMBULATORY - MEDICINE PR C [facility] [place] [facility] May 23, 2024 11:30 AM AMBULATORY - PSYCHIATRY [facility] [place] [facility] May 24, 2024 10:30 AM AMBULATORY - MEDICINE [facility] [place] [facility] Social History: Smoking Status (Most current) and [...] Nora mclaughlin Aug 04, 2023 09:00 AM PR-TOBACCO QUIT 15 YRS OR MORE [facility] [place] [facility] Tobacco Use History This section includes a history of the smoking, or tobacco-related health factors, that were collected on or before the date of the Encounter. The data comes from the [place] facility where the Encounter took place. Date/Time Smoking Status/Tobacco Use Comment F acility Aug 04, 2023 09:00 AM VA-TOBACCO [facility]IT [facility]RS [facility] Aug 05, 2022 11:30 AM VA-TOBACCO [facility] USED [facility] Aug 22, 2021 11:30 AM [facility]TOBACCO [facility] Apr 29, 2020 10:30 AM VA-TOBACCO [facility] September 21, 2018 09:39 AM VA-TOBACCO FORMER USER [facility] September 21, 2018 09:39 AM VA-TOBACCO QUIT 15 YRS OR MORE [facility] Dec 31, 2017 02:50 PM QUIT TOBACCO USE > 7 YEARS AGO [facility] [place] [facility] Dec 31, 2016 09:33 AM QUIT TOBACCO USE > 7 YEARS AGO [facility] Dec 31, 2016 09:31 AM QUIT TOBACCO USE 1 -7 YEARS AGO [facility] [place] [facility] Jan 08, 2016 01:57 PM QUIT TOBACCO USE > 7 [facility] AGO [facility] Nov 15, 2014 10:48 AM QUIT TOBACCO USE > 7 YEARS AGO [facility] Advance Directives: All historical and current [...] Jan 01, 2005 ADVANCE DIRECTIVE KLAUS PAZ [facility] Encounter Notes: All associated encounter notes This section contains the clinical notes associated to the Encounter. Date/Time Encounter Note(s) Provider Source Jan 11, 2024 10:05 AM PSYCHOLOGY NOTE: LOCAL TITLE: PSYCHOLOGY NOTE STANDARD TITLE: PSYCHOLOGY NOTE DATE OF NOTE: JAN 11, 2024@10:05 ENTRY DATE: JAN 11, 2024@10:05:27 AUTHOR: ROSENDO CRUZ EXP COSIGNER: URGENCY: STATUS: COMPLETED INFORMED CONSENT REVIEWED: At beginning of session reviewed rights and limits of confidentiality, mandatory reporting situations, duty to warn and protect, [place] Warning, (if treatment team finds patient to be an acute danger to himself or others, that this information could be relayed to a court of law and presented to a care transitions nurse), and 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 Provided Suicide Prevention Hotline number, and other contact numbers as necessary. VISIT DURATION 45 minutes DIAGNOSES: PTSD [employer] STATEMENT OF GOALS/CONCERNS: We just got back from our cruise [place]. [place] [facility] and pictures of the [place] I feel that my [place] Palsy is coming back on my right side...I'm drooling at night. That's how I can tell. It happened around my birthday in July. See I'm wearing a hat - and it says 01/11 with a [employer] on it? Its a wiliam I give to called [place] ...When I think about all of the things Kate seen both in the - the racial riots that the government denied and covered up and the things I've see on the police - of course I have something called PTSD but it took me so long to know that and I see people walking around who are still on the job and don't realize they have it. Looking back, I wish it were more obvious. SESSION FOCUS: update from past month, symptoms, medical issues, recent events, trauma and recovery INTERVENTIONS: Psychotherapeutic Interventions: supportive counseling, processing of past trauma and the reality that there is a name for the 's illness ASSESSMENT: BRIEF ASSESSMENT OF MENTAL STATUS: 1. [...] Mood was normal: Yes upbeat Other Observations: PLAN FOR FOLLOW-UP: biweekly sessions /es/ ROSENDO CRUZ PSYD PSYCHOLOGIST Signed: 01/11/2024 11:03 ROSENDO CRUZ [facility] TR[facility]
--- OUTSIDE RECORDS SUMMARY | 2024-04-11 18:53 | XMS_ITS ---
Author Name Department [facility] [place] Organization [place] Address [address] [place] [id number] Care Team Providers Care Cnc Set Up Operator Name Role Phone LINDA PALOMINO Primary Care [...] Relationship to Policy Banegas CAREMARK PRESCRIPT ION [facility] May 03, 2018 [id number] [phone] Tracey BLISS PATIENT [facility] Jul 01, 2013 [id number] Tracey BLISS PATIENT [employer]NALC PREFERRED PROVIDER ORGANIZAT ION (PPO) [facility] Jul 01, 2013 [id number] Tracey BLISS PATIENT [employer]NALC PREFERRED PROVIDER ORGANIZAT ION (PPO) [facility] Jan 01, 2011 [id number] [phone] Tracey BLISS PATIENT [employer]IG[employer]NALC PREFERRED PROVIDER ORGANIZAT ION (PPO) [facility] HEALT H BENEF Jan 01, 2011 [id number] Tracey BLISS PATIENT MEDICARE (WNR) MEDICARE (M) PART B Jul 01, 2013 PART B [id number] Tracey BLISS PATIENT MEDICARE (WNR) MEDICARE (M) PART A Jul 01, 2013 PART A [id number] Tracey BLISS PATIENT MEDICARE (WNR) MEDICARE (M) PART A Jul 01, 2013 PART A [id number] Tracey BLISS PATIENT [facility] PREFERRED PROVIDER ORGANIZAT ION (PPO) [facility] May 03, 2018 [id number] Tracey BLISS PATIENT [facility] (MED PRIME) PREFERRED PROVIDER ORGANIZAT ION (PPO) [facility] Jul 01, 2013 [id number] Tracey BLISS PATIENT [facility] (MED PRIME) PREFERRED PROVIDER ORGANIZAT ION (PPO) [facility] Jul 01, 2013 32 [id number] Tracey BLISS PATIENT [facility]AL [facility] -MCR A ONLY Jul 01, 2013 [id number] Tracey BLISS PATIENT [facility]* Jan 01, 2011 [id number] Tracey BLISS PATIENT Selected Encounter This section includes the information on record at [place] for the Encounter. Date/Time Encounter Type Encounter Description Reason Pro vider Source Dec 08, 2023 03:00 PM Outpatient Encounter [facility] Encounter Template Text not used by [place] Plan of Treatment: Future Appointments (+ 6 months) and Future Tests (+/- 45 days) The Plan of Treatment section includes future care activities for the patient from all [place] treatmentfacilities. This section includes future appointments and future orders which are active, pending or scheduled. Future Appointments This section includes appointments that were scheduled to occur 6 months from the date of the Encounter, up to a maximum of 20 appointments. The data comes from all VA treatment facilities. Appointment Date/Time Appointment Type Appointme nt Facility Name Jan 11, 2024 10:00 AM AMBULATORY - PSYCHIATRY [facility] [place] [facility] Jan 17, 2024 10:30 AM AMBULATORY - PSYCHIATRY [facility] [place] [facility] Feb 01, 2024 10:00 AM AMBULATORY - PSYCHIATRY [facility] [place] [facility] Feb 09, 2024 10:00 AM AMBULATORY - MEDICINE [facility] C [facility] [place] [facility] Feb 11, 2024 10:45 AM AMBULATORY - NONE [facility] [place] [facility] Feb 16, 2024 11:30 AM AMBULATORY - NONE [facility] [place] [facility] Feb 22, 2024 01:45 PM AMBULATORY - MEDICINE [facility] [place] [facility] Mar 24, 2024 11:00 AM AMBULATORY - NONE [facility] [place] [facility] Apr 17, 2024 12:30 PM AMBULATORY - MEDICINE [facility] C [facility] [place] [facility] Apr 17, 2024 01:00 PM AMBULATORY - MEDICINE [facility] C [facility] [place] [facility] May 23, 2024 11:30 AM AMBULATORY - PSYCHIATRY [facility] [place] [facility] May 24, 2024 10:30 AM AMBULATORY - MEDICINE [facility] C [facility] [place] [facility] Social History: Smoking Status (Most current) and Tobacco Use (All prior to encounter date) This section includes the most current, and the historical, smoking and tobacco- related health factors from the [place] facility where the Encounter took place. Current Smoking Status This section includes the most current smoking, or tobacco-related health factor, from the VA facility where the Encounter took place. Date/Time Current Smoking Status Comment Facil ity Aug 04, 2023 09:00 AM VA-TOBACCO QUIT 15 YRS OR MORE [facility] Tobacco Use History This section includes a history of the smoking, or tobacco-related health factors, that were collected on or before the date of the Encounter. The data comes from the [place] facility where the Encounter took place. Date/Time Smoking Status/Tobacco Use Comment F acility Aug 04, 2023 09:00 AM VA-TOBACCO QUIT 15 YRS OR MORE [facility] [place] [facility] Aug 05, 2022 11:30 AM VA-TOBACCO NEVER USED [facility] [place] [facility] Aug 22, 2021 11:30 AM VA-TOBACCO NEVER USED [facility] [place] [facility] Apr 29, 2020 10:30 AM VA-TOBACCO NEVER USED [facility] [place] [facility] September 21, 2018 09:39 AM VA-TOBACCO FORMER USER [facility] [place] [facility] September 21, 2018 09:39 AM VA-TOBACCO QUIT 15 YRS OR MORE [facility] [place] [facility] Dec 31, 2017 02:50 PM QUIT TOBACCO USE > 7 YEARS AGO [facility] [place] [facility] Dec 31, 2016 09:33 AM QUIT TOBACCO USE > 7 YEARS AGO [facility] [place] [facility] Dec 31, 2016 09:31 AM QUIT TOBACCO USE 1 -7 YEARS AGO [facility] [place] [facility] Jan 08, 2016 01:57 PM QUIT TOBACCO USE > 7 YEARS AGO [facility] [place] [facility] Nov 15, 2014 10:48 AM QUIT TOBACCO USE > 7 YEARS AGO quit 1975 [facility] Advance Directives: All historical and current Section Date Range: From patient's date of to the date document was created. This section includes ALL of a patient's completed or amended [place] Advance and Rescinded Directives. The entries below indicate that a directive exists for the patient, but an actual copy is not included with this document. The data comes from all [place] facilities. Date Advance Directives Provider Source Jan 01, 2005 ADVANCE DIRECTIVE KLAUS PAZ [facility] Encounter Notes: All associated encounter notes This section contains the clinical notes associated to the Encounter. Date/Time Encounter Note(s) Provider Source Dec 08, 2023 03:07 PM ADDENDUM: LOCAL TITLE: Addendum STANDARD TITLE: ADDENDUM DATE OF NOTE: DEC 08, 2023@15:07:04 ENTRY DATE: DEC 08, 2023@15:07:05 AUTHOR: JOSE BORREGO EXP COSIGNER: URGENCY: STATUS: COMPLETED RTC dispositioned for CWM/NO/VVC/MHC/SPEEDER HAND ASH, PID 12/30/2023, as no longer necessary. /moe BORREGO ADVANCED PUBLIC HEALTH SPECIALIST Signed: 12/08/2023 15:07 Receipt Acknowledged By: 12/08/2023 16:18 /darcy/ ELIEL ALEMAN, RN,MSN,PSYCH N.P., STAFF CLINICAL NURSE SPECIALIST --- Original Document --- 12/08/23 ADMINISTRATIVE NOTE: was informed that his appointment with CWM/NO/VVC/MHC/SPEEDER HAND ASH on 12/30/2023 @ 1030 (VVC)was cancelled by clinic, as the Provider is not available. has a follow-up appt. on 01/14 @ 103, as he will be going on vacation from 12/28 to 01/08/2024, and states that he does not need to be seen sooner. Thank you. /moe BORREGO ADVANCED PUBLIC HEALTH SPECIALIST Signed: 12/08/2023 15:06 JOSE BORREGO [facility] [place] [facility] Dec 08, 2023 03:00 PM ADMINISTRATIVE NOT E: LOCAL TITLE: ADMINISTRATIVE NOTE STANDARD TITLE: ADMINISTRATIVE NOTE DATE OF NOTE: DEC 08, 2023@15:00 ENTRY DATE: DEC 08, 2023@15:00:24 AUTHOR: JOSE BORREGO EXP COSIGNER: URGENCY: STATUS: COMPLETED ADMINISTRATIVE NOTE Has ADDENDA was informed that his appointment with CWM/NO/VVC/MHC/SPEEDER HAND ASH on 12/30/2023 @ 1030 (VVC)was cancelled by clinic, as the Provider is not available. [place] has a follow-up appt. on 01/14 @ 1030, as he will be going on vacation from 12/28 to 01/08/2024, and states that he does not need to be seen sooner. Thank you. /moe BORREGO ADVANCED PUBLIC HEALTH SPECIALIST Signed: 12/08/2023 15:06 12/08/2023 ADDENDUM STATUS: COMPLETED RTC dispositioned for CWM/NO/VVC/MHC/SPEEDER HAND ASH, UZMA 12/30/2023, as no longer necessary. /darcy/ JOSE BORREGO ADVANCED PUBLIC HEALTH SPECIALIST Signed: 12/08/2023 15:07 Receipt Acknowledged By: * AWAITING SIGNATURE * ELIEL ALEMAN,[facility] [place] [facility]
--- OUTSIDE RECORDS SUMMARY | 2024-04-11 18:53 | XMS_ITS | Encounter Summary ---
Author Name [facility] [place] Organization [facility] [place] Address [address] [place] [id number] Care Team Providers Care Engineer Rf Deployment Name Role Phone LINDA PALOMINO Primary Care [...] to Policy Banegas [facility]EMARK PRESCRIPT ION [facility] May 03, 2018 [id number] Tracey BLISS PATIENT [employer] [facility] [facility] Jul 01, 2013 [id number] Tracey BLISS PATIENT CIGNA/NALC PREFERRED PROVIDER ORGANIZAT ION (PPO) [facility] Jul 01, 2013 [id number] [phone] Tracey BLISS PATIENT CIGNA/NALC PREFERRED PROVIDER [facility] ION [facility] Jan 01, 2011 [id number] Tracey BLISSEP PATIENT CIGNA/NALC PREFERRED PROVIDER ORGANIZAT ION (PPO) [facility]ALT [facility] BENEF IT Jan 01, 2011 [id number] Tracey BLISS PATIENT MEDICARE (WNR) MEDICARE (M) PART B Jul 01, 2013 PART B [id number] Tracey BLISS PATIENT MEDICARE (WNR) MEDICARE (M) PART A Jul 01, 2013 PART A [id number] Tracey BLISS PATIENT MEDICARE (WNR) MEDICARE (M) PART A Jul 01, 2013 PART A [id number] [phone] Tracey BLISS PATIENT [facility] PREFERRED PROVIDER ORGANIZAT ION (PPO) [facility] May 03, 2018 [id number] Tracey BLISS PATIENT [facility] (MED PRIME) PREFERRED PROVIDER ORGANIZAT ION (PPO) [facility] Jul 01, 2013 [id number] Tracey BLISS PATIENT [facility] (MED PRIME) PREFERRED PROVIDER ORGANIZAT ION (PPO) [facility] Jul 01, 2013 32 [id number] Tracey BLISS PATIENT [facility] -MCR A ONLY Jul 01, 2013 [id number] Tracey BLISS PATIENT [facility]* Jan 01, 2011 [id number] Tracey BLISS PATIENT Selected Encounter This section includes the information on record at [place] for the Encounter. Date/Time Encounter Type Encounter Description Reason Provider Source Jan 17, 2024 10:30 AM PSYTX W PT W E/M 30 [facility] - IND ICD-10-CM F41.9 Anxiety disorder, unspecified DANIELLE ALEMAN E Encounter Template Text not used by [place] Assessments - Encounter Diagnoses This section includes the primary and secondary diagnoses documented for the Encounter. Date/Time Primary/Secondary Diagnosis Diagnosis Name Provider Source Jan 17, 2024 05:06 PM PRIMARY Anxiety disorder, unspecified DANIELLE ALEMAN [place] [facility] [place] [facility] Jan 17, 2024 05:06 PM SECONDARY Post-traumatic stress disorder, chronic ASH,DANIELLE A Chaitanya [facility] Plan of Treatment: Future Appointments (+ 6 months) and Future Tests (+/- 45 days) The Plan of Treatment section includes future care activities for the patient from [facility] [place] [facility] This section includes future appointments and future orders which are active, pending or scheduled. Future Appointments This section includes appointments that were scheduled to occur 6 months from the date of the Encounter, up to a maximum of 20 appointments. The data comes from all [place] treatment facilities. Appointment Date/Time Appointment Type Appointme nt Facility Name Feb 01, 2024 10:00 AM [facility] [place] [facility] Feb 09, 2024 10:00 AM AMBULATORY - MEDICINE [facility] Feb 11, 2024 10:45 AM [facility] [place] [facility] Feb 16, 2024 11:30 AM AMBULATORY - NONE [place] [facility] [place] [facility] Feb 22, 2024 01:45 PM AMBULATORY - MEDICINE [facility] [place] [facility] Mar 24, 2024 11:00 AM AMBULATORY - NONE [place] [facility] [place] [facility] Apr 17, 2024 12:30 PM AMBULATORY - MEDICINE [facility] [place] [facility] Apr 17, 2024 01:00 PM AMBULATORY - MEDICINE [facility] [place] [facility] May 23, 2024 11:30 AM AMBULATORY - PS[place]CHIATRY [place] [facility] [place] [facility] May 24, 2024 10:30 AM AMBULATORY - MEDICINE [facility] Social History: Smoking Status (Most current) and [...] 04, 2023 09:00 AM VA-TOBACCO FORMER USER [facility] Tobacco Use History This section includes a history of the smoking, or tobacco-related health factors, that were collected on or before the date of the Encounter. The data comes from the [place] facility where the Encounter took place. Date/Time Smoking Status/Tobacco Use Comment F acility Aug 04, 2023 09:00 AM VA-TOBACCO QUIT 15 YRS OR MORE [place] [facility] [place] [facility] Aug 05, 2022 11:30 AM VA-TOBACCO NEVER USED [place] [facility] [place] [facility] Aug 22, 2021 11:30 AM VA-TOBACCO NEVER USED [place] [facility] [place] [facility] Apr 29, 2020 10:30 AM VA-TOBACCO NEVER USED [place] [facility] [place] [facility] September 21, 2018 09:39 AM VA-TOBACCO FORMER USER [place] [facility] [place] [facility] September 21, 2018 09:39 AM VA-TOBACCO QUIT 15 YRS OR MORE [facility] [place] [facility] Dec 31, 2017 02:50 PM QUIT TOBACCO USE > 7 YEARS AGO [place] [facility] [place] [facility] Dec 31, 2016 09:33 AM QUIT TOBACCO USE > 7 YEARS AGO [place] [facility] [place] [facility] Dec 31, 2016 09:31 AM QUIT TOBACCO USE 1 -7 YEARS AGO [place] [facility] [place] [facility] Jan 08, 2016 01:57 PM QUIT TOBACCO USE > 7 YEARS AGO [place] [facility] [place] [facility] Nov 15, 2014 10:48 AM QUIT TOBACCO USE > 7 YEARS AGO quit 1975 [facility] Advance Directives: All historical and [...] 01, 2005 ADVANCE DIRECTIVE KLAUS PAZ [place] [facility] [place] [facility] Encounter Notes: All associated encounter notes This section contains the clinical notes associated to the Encounter. Date/Time Encounter Note(s) Provider Source Jan 17, 2024 05:15 PM MENTAL HEALTH TREATMENT PLAN NOTE: LOCAL TITLE: MH TREATMENT PLAN STANDARD TITLE: MENTAL HEALTH TREATMENT PLAN NOTE DATE OF NOTE: JAN 17, 2024@17:15 ENTRY DATE: JAN 17, 2024@17:16:44 AUTHOR: CHERELLE ALEMAN EXP COSIGNER: URGENCY: STATUS: COMPLETED D/ MHS not working today, computer is freezing with this jerri and cannot document there. MH treatment plan is documented here. Moro is taking meds for MH and is doing well. He recently has re-engaged in individual therapy and reports doing well with same also. A/ Moro does well with his PTSD when he has a combination of therapy and medications. He is currently feeling better and spirits are hopeful. P/ Continue same meds and therapy and document progress. /darcy/ CHERELLE ALEMAN, RN,MSN,PSYCH N.P., STAFF CLINICAL NURSE SPECIALIST Signed: 01/17/2024 17:20 CHERELLE ALEMAN [place] [facility] [place] [facility] Jan 17, 2024 05:07 PM CLINICAL NURSE SPECIALIST NOTE: LOCAL TITLE: CLINICAL NURSE SPECIALIST/MENTAL HEALTH STANDARD TITLE: CLINICAL NURSE SPECIALIST NOTE DATE OF NOTE: JAN 17, 2024@17:07 ENTRY DATE: JAN 17, 2024@17:07:44 AUTHOR: CHERELLE ALEMAN EXP COSIGNER: URGENCY: STATUS: COMPLETED NED BLISS JR, a 73year old WHITE MALE [place] [facility] Two identifiers used, and full SSN. Appt lasted 30 minutes. Active problems - [...] Served in [employer] era. He is 50 percent service connected for migraines and sinusitis. had attended PTSD group with Dr. Durbin until she retired, and he is also followed by optometry and dental at this [facility]. PACT team is now #4, Dr Palomino. He is also followed in Community for dermatology. He has an outside PC as well, so his care is a bit fragmented. It is difficult to get UDS from [facility] as he does not often come to care at this [facility] due to having an outside PCP. Had a [facility]. visit in June, and a yearl a UDS was obtained which was fine. He attended group with Dr. Durbin over the years, and then was reassigned to a new PTSD group on [facility], but he reports not wanting to attend groups on [facility], prefers face to face groups for therapy rather than [facility] although he can do either. SUBJECTIVE: The was seen today for routine follow up; visit lasted for 30 minutes. Moro reports doing well with current mental health medication, stated he is satisfied with current care. He still has community physician but is also using VA for occasional health checks and he did blood and urine screen labs here this year. [place] comes to [place] once a year to maintain his PACT [...] he has and he voiced understanding. Currently is attending individual therapy with Dr. Lopes and enjoys although worries about it being time limited. CURRENT SYMPTOMS CAUSING CONCERN TO : doing [...] days MEDICATION SIDE EFFECTS: none Last labs: 01/17/2024 16:52 LO - LAB ORDERS 1Y 07/01/2023 08:52 PSA -SERUM-ROUTINE Prov: NORMA Ord'd: 05/20/2023 10:17 # [id number] Avail: 07/01/2023 11:16 check for all lab results on 07/01/23 Weight: 214.9 lb [97.7 kg] (01/26/2019 10:20) [...] MALE, presents today sounding calm and focused. Labs were fine for his UDS. He states he is doing well with current mental health medications. No side effects or other med issues endorsed. Mental health meds are at [place] and physical care is managed mostly in the community. We have talked about the problems with having several providers in different places and he had stated considering consolidating care, but he has not done so. He is uncertain if he will do VVC groups or treatment that involves an endpoint. I have already done all that. States therapy works well for him and he can do [facility] if needed or face to face but he still likes face to face groups better. We talked about the [facility] support group, [...] he has and also upcoming appt for dental and ongoing appts with PACT and Dr. Lopes. Moro now appears (x)stable psychiatrically ()unstable psychiatrically i. [...] to continue the med. Has been on fci benzos over years. Continue education on risks. 2. Appointments reviewed with Moro and labs reviewed briefly as well. 3. has therapy in place now and is doing well with same. 4. UDS order done for screening for benzo protocol this year and was fine. He has been educated on the need for the occasional monitoring. Next Visit: in 4-5 months. However, I asked the patient to [...] of active outpatient prescriptions dispensed from this [place] (local) and dispensed from another [facility] or [...] RN,MSN,PSYCH N.P., STAFF CLINICAL NURSE SPECIALIST Signed: 01/17/2024 17:08 CHERELLE ALEMAN [place] [facility] [place] [facility] Jan 17, 2024 10:53 AM ACCOUNTING OF DISCLOSURES NOTE: LOCAL TITLE: STATE PRESCRIPTION DRUG MONITORING PROGRAM STANDARD TITLE: ACCOUNTING OF DISCLOSURES NOTE DATE OF NOTE: JAN 17, 2024@10:53:25 ENTRY DATE: JAN 17, 2024@10:53:25 AUTHOR: CHERELLE ALEMAN EXP COSIGNER: URGENCY: STATUS: COMPLETED This PDMP query was submitted by Cherelle Aleman SLEEVE FIXER. The clinical justification for this PDMP query is to review controlled substances prescribed outside of the [facility], and any additional information that may become available, as an important component of standard clinical care, and in accordance with [facility] policy. Patient information was shared with the PDMP [place]. Prescription(s) filled outside the [facility] in the last 90 days are noted. However, they do not raise significant safety concerns and do not influence the treatment plan at this time. Moro receives muscle relaxer from outside physician. he has been warned about mixing sedating meds. /darcy/ CHERELLE ALEMAN, RN,MSN,PSYCH N.P., STAFF CLINICAL NURSE SPECIALIST Signed: 01/17/2024 10:53 [facility]
--- OUTSIDE RECORDS SUMMARY | 2024-04-11 18:54 | XMS_ITS | Encounter Summary ---
Author Name [facility] [place] Address [address] [place] [id number] Care Team Providers Care Manager Sustainability Name Role Phone LINDA PALOMINO Primary Care [...] Relationship to Policy Banegas CAREMARK PRESCRIPT ION [facility] May 03, 2018 [id number] Tracey BLISS PATIENT [facility] Jul 01, 2013 [id number] Tracey BLISS PATIENT CIGNA/NALC PREFERRED PROVIDER ORGANIZAT ION (PPO) [facility] Jul 01, 2013 [id number] Tracey BLISS PATIENT [employer]IG[employer]NALC PREFERRED PROVIDER ORGANIZAT ION (PPO) [facility] Jan 01, 2011 [id number] Tracey BLISS PATIENT CIGNA/NALC PREFERRED PROVIDER ORGANIZAT ION (PPO) [facility] HEALT H BENEF Jan 01, 2011 [id number] Tracey BLISS PATIENT MEDICARE (WNR) MEDICARE (M) PART B Jul 01, 2013 PART B [id number] [id number] Tracey BLISS PATIENT MEDICARE (WNR) MEDICARE (M) PART A Jul 01, 2013 PART A [id number] [id number] Tracey BLISS PATIENT MEDICARE (WNR) MEDICARE (M) PART A Jul 01, 2013 PART A [id number] [id number] Tracey BLISS PATIENT [facility] PREFERRED PROVIDER ORGANIZAT ION (PPO) [facility] May 03, 2018 [id number] Tracey BLISS PATIENT [facility] (MED PRIME) PREFERRED PROVIDER ORGANIZAT ION (PPO) [facility] Jul 01, 2013 [id number] Tracey BLISSH PATIENT [facility] (MED PRIME) PREFERRED PROVIDER ORGANIZAT ION (PPO) [facility] Jul 01, 2013 32 [id number] Tracey BLISSH PATIENT [facility] -MCR A ONLY Jul 01, 2013 [id number] Tracey BLISS PATIENT [facility]* Jan 01, 2011 [id number] Tracey BLISS PATIENT Selected Encounter This section includes the information on record at [place] for the Encounter. 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 Date/Time Primary/Secondary Diagnosis Diagnosis Name Provider Source Feb 21, 2024 02:33 PM PRIMARY Holland's palsy LINDA PALOMINO [place] [facility] [place] [facility] Feb 21, 2024 02:33 PM SECONDARY Benign lipomatous neoplasm of skin, subcu of [facility] sites LINDA PALOMINO [place] [facility] [place] [facility] Feb 21, 2024 02:33 PM SECONDARY Encounter for immunization ANNA HUERTAS [place] [facility] [place] [facility] Plan of Treatment: Future Appointments (+ 6 months) and Future Tests (+/- 45 days) The Plan of Treatment section includes future care activities for the patient from all [place] treatmentfacilities. This section includes future appointments and future orders which are active, pending or scheduled. Future Appointments This section includes appointments that were scheduled to occur 6 months from the date of the Encounter, up to a maximum of 20 appointments. The data comes from all [place] treatment facilities. Appointment Date/Time Appointment Type Appointme nt Facility Name Feb 11, 2024 10:45 AM AMBULATORY - NONE [place] [facility] [place] [facility] Feb 16, 2024 11:30 AM AMBULATORY - NONE [place] [facility] [place] [facility] Feb 22, 2024 01:45 PM AMBULATORY - MEDICINE [place] [facility] [place] [facility] Mar 24, 2024 11:00 AM AMBULATORY - NONE [place] [facility] [place] [facility] Apr 17, 2024 12:30 PM AMBULATORY - MEDICINE [place] [facility] [place] [facility] Apr 17, 2024 01:00 PM AMBULATORY - MEDICINE [place] [facility] [place] [facility] May 23, 2024 11:30 AM AMBULATORY - PSYCHIATRY [place] [facility] [place] [facility] May 24, 2024 10:30 AM AMBULATORY - MEDICINE [place] [facility] [place] [facility] Vital Signs: All taken on the encounter date This section contains inpatient and outpatient Vital Signs collected on the date of the Encounter. Date/Time Temperature Pulse Blood Pressure Respiratory Rate SP02 Pain Height Weight Body Mass Index Source Feb 09, 2024 10:15 AM 130/78 [place] [facility] [place] [facility] Feb 09, 2024 10:01 AM 77 164/77 19 98 201 28 [place] [facility] [place] [facility] Immunizations: All administered on the encounter date This section contains immunizations associated to the Encounter. Immunization Series Date Issued Reaction Comments INFLUENZA, HIGH-DOSE, TRIVALENT, PF Feb 08 Social History: Smoking Status (Most current) and Tobacco Use (All prior to encounter date) This section includes the most current, and the historical, smoking and tobacco- related health factors from the [place] facility where the Encounter took place. Current Smoking Status This section includes the most current smoking, or tobacco-related health factor, from the [place] facility where the Encounter took place. Date/Time Current Smoking Status Comment Facil ity Aug 04, 2023 09:00 AM VA-TOBACCO FORMER USER [place] [facility] [place] [facility] Tobacco Use History This section includes a history of the smoking, or tobacco-related health factors, that were collected on or before the date of the Encounter. The data comes from the [place] facility where the Encounter took place. Date/Time Smoking Status/Tobacco Use Comment F acility Aug 04, 2023 09:00 AM VA-TOBACCO QUIT 15 YRS OR MORE [facility] [place] [facility] Aug 05, 2022 11:30 AM VA-TOBACCO NEVER USED [place] [facility] [place] [facility] Aug 22, 2021 11:30 AM VA-TOBACCO NEVER USED [place] [facility] [place] [facility] Apr 29, 2020 10:30 AM VA-TOBACCO NEVER USED [place] [facility] [place] [facility] September 21, 2018 09:39 AM VA-TOBACCO FORMER USER [facility] [place] [facility] September 21, 2018 09:39 AM VA-TOBACCO QUIT 15 YRS OR MORE [facility] [place] [facility] Dec 31, 2017 02:50 PM QUIT TOBACCO USE > 7 YEARS AGO [facility] [place] [facility] Dec 31, 2016 09:33 AM QUIT TOBACCO USE > 7 YEARS AGO [facility] [place] [facility] Dec 31, 2016 09:31 AM QUIT TOBACCO USE 1 -7 YEARS AGO [facility] [place] [facility] Jan 08, 2016 01:57 PM QUIT TOBACCO USE > 7 YEARS AGO [facility] [place] [facility] Nov 15, 2014 10:48 AM QUIT TOBACCO USE > 7 YEARS AGO quit 1975 [place] [facility] [place] [facility] Advance Directives: All historical and current Section Date Range: From patient's date of to the date document was created. This section includes ALL of a patient's completed or amended [place] Advance and Rescinded Directives. The entries below indicate that a directive exists for the patient, but an actual copy is not included with this document. The data comes from all [place] facilities. Date Advance Directives Provider Source Jan 01, 2005 ADVANCE DIRECTIVE KLAUS PAZ [place] [facility] [place] [facility] Encounter Notes: All associated encounter notes This section contains the clinical notes associated to the Encounter. Date/Time Encounter Note(s) Provider Source Feb 09, 2024 10:15 AM PREVENTIVE MEDICINE NURSING NOTE: LOCAL TITLE: CLINICAL REMINDERS/NURSING STANDARD TITLE: PREVENTIVE MEDICINE NURSING NOTE DATE OF NOTE: FEB 09, 2024@10:15 ENTRY DATE: FEB 09, 2024@10:15:42 AUTHOR: ANNA HUERTAS EXP COSIGNER: URGENCY: STATUS: COMPLETED Influenza Immunization: Influenza, High-Dose, Trivalent, Preservative Free (Fluzone-Syringe) Administered: INFLUENZA, HIGH-DOSE, TRIVALENT, PF Date Administered: Feb 09, 2024 10:00 Master Merchandiser: SANOFI PASTEUR Lot: [id number] Exp Date: Oct 30, 2024 ND: [id number] Admin Route/Site: INTRAMUSCULAR/RIGHT DELTOID Dosage: 0.5mL Vaccine Information Statement(s): INFLUENZA(FLU) VACC(INACTIVATED OR RECOMBINANT)VIS Dec 06, 2020 (UKRAINIAN) Order By: Policy Administered By: Anna Huertas The Influenza Vaccine Information Statement (VIS) was reviewed with the patient/caregiver which lists the benefits and risks of the vaccine and the risks of not receiving the Influenza vaccine. The patient/caregiver denied any prior severe reaction to this vaccine or its components or a severe allergic reaction, such as anaphylaxis, to any vaccine or any injectable therapy. The patient/caregiver gave verbal consent to receive the vaccine. COVID-19 Immunization: Refused Moderna Monovalent COVID-19 vaccine Immunization: COVID-19 (MODERNA), MRNA, LNP-S, PF, 50 MCG/0.5 ML (AGES 12+ YEARS) Refusal Reason: PATIENT DECISION Patient refuses all immunization(s) in the COVID-19 group Date Documented: 02/09/24 10:16 Herpes Zoster (Shingles) Vaccine: The patient declines to receive the recommended dose of zoster (shingles) vaccine. Immunization: ZOSTER RECOMBINANT Refusal Reason: PATIENT DECISION Patient refuses all immunization(s) in the ZOSTER group Date Documented: 02/09/24 10:17 Td / Tdap Immunization: The patient declines to receive the recommended dose of Td/Tdap vaccine. 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 bells palsy HPI. soledad presents for f/u at [facility]PC[facility] clinic to review his medical concerns. He continues to have counselling per [place] mental health for anxiety/PTSD. He also has well controlled Ulcerative colitis and on meds per his GI provider. Soledad has slowly improving bells palsy but does bite inside of left buccal mucosa and he will d/w dentist safest plan ( he may need ENT consult if any redundant tissue at risk per dental). soledad has nocturnal drooling. He also notes lipoma in left uppper arm that seems to be smaller in size over past 6 mos SH nonsmoker Active problems - Computerized Problem List is the source for the followin. Exposure to potentially hazardous substance ([facility] [id number]) 2. Holland's palsy 3. Allergic Rhinitis (SCT [id number]) 4. Basal cell carcinoma of skin 5. Hyperlipidemia ([facility] [id number]) 6. Anxiety 7. Hemorrhoid 8. Under care of multiple providers 9. History of surgery 10. Ulcerative colitis 11. Posttraumatic stress disorder 12. Chronic sinusitis 13. Neck pain 14. 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 COMBAT SERVICE INDICATED: No SERVICE CONNECTED % - 100 VITAL SIGNS: Temperature 97.5 F [36.4 C] (08/04/2023 08:55) Blood Pressure 145/69 (08/04/2023 08:55) Pulse 77 (08/04/2023 08:55) Respiration 16 (08/04/2023 08:55) Pain 5 (08/04/2023 08:52) BMI BMI: 28.8 Weight 206 lb [93.44 kg] (08/04/2023 08:52) Pulse Oximetry 95% (08/04/2023 08:55) Review of Systems: CONSTITUTIONAL: No fever, no loss of appetite ENT: No sore throat, no cough CARDIOVASCULAR: No chest pain, no palpitations RESPIRATORY: No SOB, no wheezing GASTROINTESTINAL: No abd pain, no N/V/D, no change in stool EXAMINATION General: Well-appearing gentleman in no obvious distress. Mental Status: Alert and oriented x 3 Head: Normocephalic. Eyes: Anicteric sclerae. Conjunctivae noninjected. Ext: left upper arm/3-4 cm oval, soft movable mass located on top of left biceps (this mass be part of left biceps) Psych: Normal mood and anxious affect/ which is his baseline affect. Normal judgment. DATA REVIEW >> MEDICATIONS Reviewed Today (VA & Non VA) ALLERGIES: Patient has answered NKA Active Outpatient Medications (including Supplies): Issue Date Status Last Fill Active Outpatient Medications Refills Expiration 1) ALBUTEROL 90MCG (CFC-F) 200D ORAL INHL ACTIVE Issu:08-04-23 Qty: 1 for 30 days Sig: INHALE 2 Refills: 1 Last:01-11-24 PUFFS BY MOUTH EVERY 4 HOURS NEEDED Expr:08-04-24 FOR BRONCHOSPASM 2) BALSALAZIDE DISODIUM 750MG CAP Qty: 180 ACTIVE Issu:10-06-23 for 30 days Sig: TAKE THREE CAPSULES Refills: 8 Last:01-11-24 BY MOUTH TWICE DAILY Expr:10-06-24 3) BUPROPION 150MG 24HR XL TAB (ONCE DAILY) ACTIVE Issu:01-17-24 Qty: 30 for 30 days Sig: TAKE ONE Refills: 4 Last:02-04-24 TABLET BY MOUTH EVERY MORNING *FOR Expr:01-17-25 MOOD 4) CARBAMIDE PEROXIDE 6.5% OTIC SOLN Qty: ACTIVE Issu:05-20-23 15 for 90 days Sig: INSTILL 5 TO 10 Refills: 2 Last:01-11-24 DROPS INTO THE AFFECTED EAR(S) ONCE Expr:05-20-24 DAILY NEEDED FOR EAR WAX BLOCKAGE 5) FLUTICASONE PROP 50MCG 120D NASAL INHL ACTIVE Issu:08-04-23 Qty: 3 for 90 days Sig: INSTILL 1 Refills: 1 Last:01-22-24 SPRAY INTO EACH NOSTRIL ONCE DAILY Expr:08-04-24 6) LORAZEPAM 0.5MG TAB Qty: 30 for 30 days ACTIVE Issu:01-17-24 Sig: TAKE ONE TABLET BY MOUTH ONCE Refills: 4 Last:01-18-24 DAILY NEEDED FOR ANXIETY. CAUTION Expr:07-19-[address] OR OPERATE MACHINERY. NO ALCOHOL AND DON'T TAKE IF TAKING CARISOPRODOL OR TRAMADOL. 7) MESALAMINE 1000MG RTL SUPP Qty: 30 for ACTIVE Issu:10-06-23 30 days Sig: INSERT 1 Refills: 9 Last:01-11-24 SUPPOSITORY(IES) RECTALLY AT BEDTIME Expr:10-06-24 8) PHENYLEPHRINE HCL 0.25% RTL SUPP Qty: ACTIVE Issu:08-04-23 84 for 90 days Sig: INSERT 1 Refills: 1 Last:01-22-24 SUPPOSITORY(IES) RECTALLY ONCE DAILY Expr:08-04-24 NEEDED 9) SODIUM FLUORIDE 1.1% TOOTHPASTE Qty: ACTIVE Issu:05-20-23 102 for 90 days Sig: BRUSH SMALL Refills: 1 Last:01-11-24 AMOUNT TO TEETH TWICE DAILY FOR TOOTH [...] PREPARATION H ACTIVE SUPPOSITORIES BY MOUTH NEEDED 14 Total Medications >> LABS REVIEWED TODAY: CHEM [...] 107 114 UREA NITROGEN 07/01/23 08:52 19 CREATININE-EGFR 07/01/23 08:52 1.08 LIVER PANEL TREND Collection DT Spec AST [...] Only: [facility] Video Connect Capable DUE NOW Influenza Immunization DUE NOW Medication Reconciliation DUE NOW Td / Tdap Immunization Jun 05 COVID-19 Immunization DUE NOW Herpes Zoster (Shingles) Vaccine DUE NOW RHS Screen DUE NOW Eye Care At-Risk Screen Apr 07 (Optional) Whole Health Documentation DUE NOW ASSESSMENT/PLAN: 1. bells palsy 2. left upper arm lipoma/ expect that CC surgeon will utilize MRI to eval lesion. Plan 1. vet will see his dentist and follow recommendations about oral care 2. vet prefers to see [facility] surgeon to eval lipoma 3. f/u w/ PCP in 3 mos LAB ORDERS FOR NEXT APPT. spent in [...] of active outpatient prescriptions dispensed from this [place] (local) and dispensed from another [place] or [facility] facility (remote) as well as inpatient orders [...] provider. /darcy/ LINDA PALOMINO MD PHYSICIAN Signed: 02/09/2024 10:30 CHAVEZ PALOMINO [place] [facility]
--- OUTSIDE RECORDS SUMMARY | 2024-04-11 18:54 | XMS_ITS | Encounter Summary ---
Author Name [facility] [place] [facility] [place] Address [address] [place] [address] Care Team Providers Care Branch Office Manager Name Role Phone LINDA PALOMINO Primary Care [...] to Policy Banegas CAREMARK PRESCRIPT ION [facility] May 03, 2018 [id number] Tracey BLISS PATIENT [facility] MENTAL HEALTH [facility] Jul 01, 2013 [id number] Tracey BLISS PATIENT CIGNA/NALC PREFERRED PROVIDER ORGANIZAT ION (PPO) [facility] Jul 01, 2013 32 [id number] Tracey BLISS PATIENT CIG[employer]/NALC PREFERRED PROVIDER ORGANIZAT ION (PPO) [facility] Jan 01, 2011 [id number] Tracey BLISS PATIENT CIGNA/NALC PREFERRED PROVIDER ORGANIZAT ION (PPO) [facility] HEALT H BENEF Jan 01, 2011 [id number] Tracey BLISS PATIENT MEDICARE (WNR) MEDICARE (M) PART B Jul 01, 2013 PART B [id number] Tracey BLISS PATIENT MEDICARE (WNR) MEDICARE (M) PART A Jul 01, 2013 PART A [id number] Tracey BLISS PATIENT MEDICARE (WNR) MEDICARE (M) PART A Jul 01, 2013 PART A [id number] Tracey BLISS PATIENT [facility] PREFERRED PROVIDER ORGANIZAT ION (PPO) [facility] May 03, 2018 [id number] Tracey BLISS PATIENT [facility] (MED PRIME) PREFERRED PROVIDER ORGANIZAT ION (PPO) [facility] Jul 01, 2013 [id number] Tracey BLISSH PATIENT [facility] (MED PRIME) PREFERRED PROVIDER ORGANIZAT ION (PPO) [facility] Jul 01, 2013 32 [id number] Tracey BLISSH PATIENT [facility]AL HE[facility] -MCR A ONLY Jul 01, 2013 [id number] Tracey BLISS PATIENT [facility]* Jan 01, 2011 [id number] Tracey BLISS PATIENT Selected Encounter This section includes the information on record at [place] for the Encounter. Date/Time Encounter Type Encounter Description Reason Provider Source Feb 01, 2024 10:00 AM PSYTX W PT 45 MINUTES [facility] CL[facility] - IND ICD-10-CM K51.90 Ulcerative colitis, unspecified, without complications ROSENDO CRUZ [facility] Encounter Template Text not used by [place] Assessments - Encounter Diagnoses This section includes the primary and secondary diagnoses documented for the Encounter. Date/Time Primary/Secondary Diagnosis Diagnosis Name Provider Source Feb 21, 2024 10:04 AM PRIMARY Ulcerative colitis, unspecified, without complications ROSENDO CRUZ [place] [facility] Plan of Treatment: Future Appointments (+ 6 months) and Future Tests (+/- 45 days) The Plan of Treatment section includes [facility] care [facility] [place] [facility] This section includes future appointments and future orders which are active, pending or scheduled. Future Appointments This section includes appointments that were scheduled to occur 6 months from the date of the Encounter, up to a maximum of 20 appointments. The data comes from all [place] treatment facilities. Appointment Date/Time Appointment Type Appointme nt Facility Name Feb 09, 2024 10:00 AM AMBULATORY - MEDICINE [place] [facility] [place] [facility] Feb 11, 2024 10:45 AM AMBULATORY - NONE [place] [facility] [place] [facility] Feb 16, 2024 11:30 AM AMBULATORY - NONE [place] [facility] [place] [facility] Feb 22, 2024 01:45 PM AMBULATORY - MEDICINE [place] [facility] [place] [facility] Mar 24, 2024 11:00 AM AMBULATORY - NONE [place] [facility] [place] [facility] Apr 17, 2024 12:30 PM AMBULATORY - MEDICINE [place] [facility] [place] [facility] Apr 17, 2024 01:00 PM AMBULATORY - MEDICINE [place] [facility] [place] [facility] May 23, 2024 11:30 AM AMBULATORY - PSYCHIATRY [place] [facility] [place] [facility] May 24, 2024 10:30 AM AMBULATORY - MEDICINE [facility] [place] [facility] Social History: Smoking Status (Most current) and Tobacco Use (All prior to encounter date) This section includes the most current, and the historical, smoking and tobacco- related health factors from the [place] facility where the Encounter took place. Current Smoking Status This section includes the most current smoking, or tobacco-related health factor, from the [place] facility where the Encounter took place. Date/Time Current Smoking Status Comment Facil ity Aug 04, 2023 09:00 AM [place]-TOBACCO FORMER USER [facility] Tobacco Use History This section includes a history of the smoking, or tobacco-related health factors, that were collected on or before the date of the Encounter. The data comes from the [place] facility where the Encounter took place. Date/Time Smoking Status/Tobacco Use Comment F acility Aug 04, 2023 09:00 AM [place]-TOBACCO QUIT 15 YRS OR MORE [facility] [place] [facility] Aug 05, 2022 11:30 AM VA-TOBACCO NEVER USED [place] [facility] [place] [facility] Aug 22, 2021 11:30 AM VA-TOBACCO NEVER USED [place] [facility] [place] [facility] Apr 29, 2020 10:30 AM VA-TOBACCO NEVER USED [place] [facility] [place] [facility] September 21, 2018 09:39 AM VA-TOBACCO FORMER USER [place] [facility] [place] [facility] September 21, 2018 09:39 AM VA-TOBACCO QUIT 15 YRS OR MORE [place] [facility] [place] [facility] Dec 31, 2017 02:50 PM QUIT TOBACCO USE > 7 YEARS AGO [place] [facility] [place] [facility] Dec 31, 2016 09:33 AM QUIT TOBACCO USE > 7 YEARS AGO [place] [facility] [place] [facility] Dec 31, 2016 09:31 AM QUIT TOBACCO USE 1 -7 YEARS AGO [place] [facility] [place] [facility] Jan 08, 2016 01:57 PM QUIT TOBACCO USE > 7 YEARS AGO [place] [facility] [place] [facility] Nov 15, 2014 10:48 AM QUIT TOBACCO USE > 7 YEARS AGO quit [facility] Advance Directives: All historical and current Section Date Range: From patient's date of to the date document was created. This section includes ALL of a patient's completed or amended [place] Advance and Rescinded Directives. The entries below indicate that a directive exists for the patient, but an actual copy is not included with this document. The data comes from all [place] facilities. Date Advance Directives Provider Source Jan 01, 2005 ADVANCE DIRECTIVE KLAUS PAZ ES [place] [facility] [place] [facility] Encounter Notes: All associated encounter notes This section contains the clinical notes associated to the Encounter. Date/Time Encounter Note(s) Provider Source Feb 01, 2024 10:28 AM PSYCHOLOGY NOTE: LOCAL TITLE: PSYCHOLOGY NOTE STANDARD TITLE: PSYCHOLOGY NOTE DATE OF NOTE: FEB 01, 2024@10:28 ENTRY DATE: FEB 01, 2024@10:28:13 AUTHOR: ROSENDO CRUZ EXP COSIGNER: URGENCY: STATUS: COMPLETED INFORMED CONSENT REVIEWED: At beginning of session reviewed rights and limits of confidentiality, mandatory reporting situations, duty to warn and protect, [place] Warning, (if treatment team finds patient to be an acute danger to himself or others, that this information could be relayed to a court of law and presented to a bus and sys integration senior manager), and 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 Provided Suicide Prevention Hotline number, and other contact numbers as necessary. VISIT DURATION 45 minutes DIAGNOSES: PTSD VETERANS STATEMENT OF GOALS/CONCERNS: I'm doing well. I have issues with my herniated disc acting up and I took muscle relaxers last night and they did nothing. I'll need to see my doctors about that. I do have my moments with my where I catch myself and take a breath to avoid hollering at her. I do still think my [place] Palsy is coming back....I am good to wait to see you after the leave - It is good to talk. I guess what would be helpful is to see you until there is another (order picker run) Vietnam era Veterans group like Terri Ramakrishna had. That was good for me to be reminded about how to control my irritability. SESSION FOCUS: update from past month, symptoms, medical issues, plans and treatment goal/planning INTERVENTIONS: Psychotherapeutic Interventions: supportive counseling, collaborative planning ASSESSMENT: BRIEF ASSESSMENT OF MENTAL STATUS: 1. [...] Yes upbeat Other Observations: PLAN FOR FOLLOW-UP: next session is Apr 11, 2024. Still looking for an appropriate group setting for . /darcy/ ROSENDO CRUZ PSYD PSYCHOLOGIST Signed: 02/01/2024 11:07 ROSENDO CRUZ [place] [facility]
--- OUTSIDE RECORDS SUMMARY | 2024-04-11 18:54 | XMS_ITS ---
Author Name [facility] [place] Address [address] [place] [address] Care Team Providers Care Assistant To The Dean Name Role Phone LINDA PALOMINO Primary Care [...] PRESCRIPT ION [facility] May 03, 2018 [id number] [phone] Tracey BLISS PATIENT [facility] Jul 01, 2013 [id number] Tracey BLISS PATIENT [employer]IG[employer]/NALC PREFERRED PROVIDER ORGANIZAT ION (PPO) [facility] Jul 01, 2013 32 [id number] [phone] Tracey BLISS PATIENT [facility] PREFERRED PROVIDER ORGANIZAT ION (PPO) [facility] Jan 01, 2011 [id number] [phone] Tracey BLISS PATIENT [employer]NALC PREFERRED PROVIDER ORGANIZAT ION (PPO) [facility] BENEF Jan 01, 2011 [id number] [phone] Tracey BLISS PATIENT MEDICARE (WNR) MEDICARE (M) PART B Jul 01, 2013 PART B [id number] Tracey BLISS PATIENT MEDICARE (WNR) MEDICARE (M) PART A Jul 01, 2013 PART A [id number] Tracey BLISS PATIENT MEDICARE (WNR) MEDICARE (M) PART A Jul 01, 2013 PART A [id number] [phone] Tracey BLISS PATIENT [facility] PREFERRED PROVIDER ORGANIZAT ION (PPO) [facility] May 03, 2018 32 [id number] Tracey BLISS PATIENT [facility] (MED PRIME) PREFERRED PROVIDER ORGANIZAT ION (PPO) [facility] Jul 01, 2013 [id number] Tracey BLISS PATIENT [facility] (MED PRIME) PREFERRED PROVIDER ORGANIZAT ION (PPO) [facility] Jul 01, 2013 32 [id number] Tarcey BLISS PATIENT [facility] -MCR A ONLY Jul 01, 2013 [id number] Tracey BLISS PATIENT [facility]* Jan 01, 2011 [id number] Tracey BLISS PATIENT Selected Encounter This section includes the information on record at [place] for the Encounter. Date/Time Encounter Type Encounter Description Reason Pro vider Source Feb 01, 2024 12:09 PM Outpatient Encounter [facility] Encounter Template Text not used by [place] Plan of Treatment: Future Appointments (+ 6 months) and Future Tests (+/- 45 days) The Plan of Treatment section includes future care activities for the patient from all [place] treatmentfacilities. This section includes future appointments and [...] - MEDICINE [facility] [place] [facility] Feb 11, 2024 10:45 AM AMBULATORY - NONE [facility] [place] [facility] Feb 16, 2024 11:30 AM AMBULATORY - NONE [facility] [place] [facility] Feb 22, 2024 01:45 PM AMBULATORY - MEDICINE [facility] [place] [facility] Mar 24, 2024 11:00 AM AMBULATORY - NONE [facility] [place] [facility] Apr 17, 2024 12:30 PM AMBULATORY - MEDICINE [facility] [place] [facility] Apr 17, 2024 01:00 PM AMBULATORY - MEDICINE [facility] [place] [facility] May 23, 2024 11:30 AM AMBULATORY - PSYCHIATRY [facility] [place] [facility] May 24, 2024 10:30 AM AMBULATORY - MEDICINE [place] [facility] [place] [facility] Social History: Smoking Status (Most [...] 04, 2023 09:00 AM VA-TOBACCO FORMER USER [place] [facility] [place] [facility] Tobacco Use History This section includes a history of the smoking, or tobacco-related health factors, that were collected on or before the date of the Encounter. The data comes from the [place] facility where the Encounter took place. Date/Time Smoking Status/Tobacco Use Comment F acility Aug 04, 2023 09:00 AM VA-TOBACCO QUIT 15 YRS OR MORE [facility] [place] [facility] Aug 05, 2022 11:30 AM VA-TOBACCO NEVER USED [facility] [place] [facility] Aug 22, 2021 11:30 AM VA-TOBACCO NEVER USED [facility] [place] [facility] Apr 29, 2020 10:30 AM VA-TOBACCO NEVER USED [facility] [place] [facility] September 21, 2018 09:39 AM [facility]-TOBAC[facility] September 21, 2018 09:39 AM VA-TOBACCO QUIT 15 YRS OR MORE [facility] Dec 31, 2017 02:50 PM QUIT TOBACCO USE > [facility] Dec 31, 2016 09:33 AM QUIT TOBACCO USE > 7 YEARS AGO [facility] Dec 31, 2016 09:31 AM QUIT TOBACCO USE 1 -7 YEARS AGO [facility] Jan 08, 2016 01:57 PM QUIT TOBACCO USE > 7 YEARS AGO [facility] Nov 15, 2014 10:48 AM QUIT TOBACCO USE > 7 YEARS AGO quit 1975 [facility] Advance Directives: All historical and current [...] Jan 01, 2005 ADVANCE DIRECTIVE KLAUS PAZ [facility] Encounter Notes: All associated encounter notes This section contains the clinical notes associated to the Encounter. 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 States that any number on his file can be called back to reschedule. /darcy/ GRANT LOMBARDO HYDROTREATER OPERATOR Signed: 02/01/2024 12:11 Receipt Acknowledged By: 02/01/2024 12:17 /darcy/ ROSENDO CRUZ PSYD PSYCHOLOGIST GRANT LOMBARDO [facility]
--- OUTSIDE RECORDS SUMMARY | 2024-04-11 18:55 | XMS_ITS ---
Author Name [facility] [place] [facility] [place] Address [address] [place] [address] Care Team Providers Care Universal Worker Assisted Living Name Role Phone LINDA PALOMINO Primary Care [...] Relationship to Policy Banegas [facility] PRESCRIPT ION [facility] May 03, 2018 [id number] Tracey BLISS PATIENT [facility] Jul 01, 2013 322 [id number] [facility]LC PREFERRED PROVIDER ORGANIZAT ION (PPO) [facility] Jul 01, 2013 32 [id number] [phone] [facility] PREFERRED PROVIDER ORGANIZAT ION (PPO) [facility] Jan 01, 2011 321 [id number] [phone] Tracey BLISS PATIENT [employer]IG[employer]NALC PREFERRED PROVIDER ORGANIZAT ION (PPO) [facility] HEALT H BENEF Jan 01, 2011 [id number] Tracey BLISS PATIENT MEDICARE (WNR) MEDICARE (M) PART B Jul 01, 2013 PART B [id number] Tracey BLISS PATIENT MEDICARE (WNR) MEDICARE (M) PART A Jul 01, 2013 PART A [id number] Tracey BLISS PATIENT MEDICARE (WNR) MEDICARE (M) PART A Jul 01, 2013 PART A [id number] Tracey BLISS PATIENT [facility] PREFERRED PROVIDER ORGANIZAT ION (PPO) [facility] May 03, 2018 32 [id number] Tracey BLISS PATIENT [facility] (MED PRIME) PREFERRED PROVIDER ORGANIZAT ION (PPO) [facility] Jul 01, 2013 [id number] Tracey BLISS PATIENT [facility] (MED PRIME) PREFERRED PROVIDER ORGANIZAT ION (PPO) [facility] Jul 01, 2013 32 [id number] Tracey BLISS PATIENT [facility] -MCR A ONLY Jul 01, 2013 [id number] Tracey BLISS PATIENT [facility]* Jan 01, 2011 [id number] Tracey BLISS PATIENT Selected Encounter This section includes the information on record at [place] for the Encounter. Date/Time Encounter Type Encounter Description Reason Pro vider Source Feb 10, 2024 08:32 AM Outpatient Encounter [facility] Encounter Template Text not used by [facility] Plan of Treatment: Future Appointments (+ 6 months) and Future Tests (+/- 45 days) The Plan of Treatment section includes future care activities for the patient from all [place] treatmentfacilities. This section includes future appointments and future orders which are active, pending or scheduled. Future Appointments This section includes appointments that were scheduled to occur 6 months from the date of the Encounter, up to a maximum of 20 appointments. The data comes from all [place] treatment facilities. Appointment Date/Time Appointment Type Appointme nt Facility Name Feb 11, 2024 10:45 AM AMBULATORY - NONE [facility] [place] [facility] Feb 16, 2024 11:30 AM AMBULATORY - NONE [facility] [place] [facility] Feb 22, 2024 01:45 PM AMBULATORY - MEDICINE [facility] [place] [facility] Mar 24, 2024 11:00 AM AMBULATORY - NONE [facility] [place] [facility] Apr 17, 2024 12:30 PM AMBULATORY - MEDICINE [facility] [place] [facility] Apr 17, 2024 01:00 PM AMBULATORY - MEDICINE [facility] [place] [facility] May 23, 2024 11:30 AM AMBULATORY - PSYCHIATRY [facility] [place] [facility] May 24, 2024 10:30 AM AMBULATORY - MEDICINE [facility] [place] [facility] Social History: Smoking Status (Most current) and Tobacco Use (All prior to encounter date) This section includes the most current, and the historical, smoking and tobacco- related health factors from the [place] facility where the Encounter took place. Current Smoking Status This section includes the most current smoking, or tobacco-related health factor, from the [place] facility where the Encounter took place. Date/Time Current Smoking Status Comment Facil ity Aug 04, 2023 09:00 AM VA-TOBACCO FORMER USER [facility] [place] [facility] Tobacco Use History This section includes a history of the smoking, or tobacco-related health factors, that were collected on or before the date of the Encounter. The data comes from the [place] facility where the Encounter took place. Date/Time Smoking Status/Tobacco Use Comment F acility Aug 04, 2023 09:00 AM VA-TOBACCO QUIT 15 YRS OR MORE [facility] [place] [facility] Aug 05, 2022 11:30 AM VA-TOBACCO NEVER USED [facility] [place] [facility] Aug 22, 2021 11:30 AM VA-TOBACCO NEVER USED [facility] [place] [facility] Apr 29, 2020 10:30 AM VA-TOBACCO NEVER USED [facility] [place] [facility] September 21, 2018 09:39 AM VA-TOBACCO FORMER USER [facility] [place] [facility] September 21, 2018 09:39 AM VA-TOBACCO QUIT 15 YRS OR MORE [facility] Dec 31, 2017 02:50 PM QUIT TOBACCO USE > 7 YEARS AGO [facility] Dec 31, 2016 09:33 AM QUIT TOBACCO USE > 7 YEARS AGO [facility] Dec 31, 2016 09:31 AM QUIT TOBACCO USE 1 -7 YEARS AGO [facility] Jan 08, 2016 01:57 PM QUIT TOBACCO USE > 7 YEARS AGO [facility] Nov 15, 2014 10:48 AM QUIT TOBACCO USE > 7 YEARS AGO [facility] Advance Directives: All historical and current Section Date Range: From patient's date of to the date document was created. This section includes ALL of a patient's completed or amended [place] Advance and Rescinded Directives. The entries below indicate that a directive exists for the patient, but an actual copy is not included with this document. The data comes from all [place] facilities. Date Advance Directives Provider Source Jan 01, 2005 ADVANCE DIRECTIVE KLAUS PAZ [facility] Encounter Notes: All associated encounter notes This section contains the clinical notes associated to the Encounter. Date/Time Encounter Note(s) Provider Source Feb 10, 2024 08:32 AM DENTISTRY TELEPHON E ENCOUNTER NOTE: LOCAL TITLE: TELEPHONE NOTE/DENTAL STANDARD TITLE: DENTISTRY TELEPHONE ENCOUNTER NOTE DATE OF NOTE: FEB 10, 2024@08:32 ENTRY DATE: FEB 10, 2024@08:32:42 AUTHOR: LUIS FERNANDO MACEDO EXP COSIGNER: URGENCY: STATUS: COMPLETED Spoke with pt to confirm dental appointment on 02/11/2024 at 10:45 am /darcy/ LUIS FERNANDO MACEDO ADVANCED COOK APPRENTICE Signed: 02/10/2024 08:33 [facility]
--- OUTSIDE RECORDS SUMMARY | 2024-04-11 18:55 | XMS_ITS | Encounter Summary ---
Author Name [facility] [place] Organization [place] Address [address] [place] [address] Care Team Providers Care Pathology Supervisor Name Role Phone LINDA PALOMINO Primary [...] Relationship to Policy Banegas CAREMARK PRESCRIPT ION [facility] May 03, 2018 [id number] Tracey BLISS PATIENT CIG[employer] BEHAVIORAL HE[employer] MENTAL HEALTH [facility] Jul 01, 2013 [id number] [facility] CIGNA/NALC PREFERRED PROVIDER ORGANIZAT ION (PPO) [facility] Jul 01, 2013 [id number] Tracey BLISS PATIENT CIGNA/NALC PREFERRED PROVIDER ORGANIZAT ION (PPO) [facility] Jan 01, 2011 [id number] Tracey BLISS PATIENT CIGNA/NALC PREFERRED PROVIDER ORGANIZAT ION (PPO) [facility] HEALT H BENEF IT Jan 01, 2011 [id number] Tracey BLISS PATIENT MEDICARE (WNR) MEDICARE (M) PART B Jul 01, 2013 PART B [id number] Tracey BLISS PATIENT MEDICARE (WNR) MEDICARE (M) PART A Jul 01, 2013 PART A [id number] Tracey BLISS PATIENT MEDICARE (WNR) MEDICARE (M) PART A Jul 01, 2013 PART A [id number] [phone] Tracey BLISS PATIENT [facility] PREFERRED PROVIDER ORGANIZAT ION (PPO) [facility] May 03, 2018 [id number] Tracey BLISS PATIENT [facility] (MED PRIME) PREFERRED PROVIDER ORGANIZAT ION (PPO) [facility] Jul 01, 2013 [id number] Tracey BLISSH PATIENT [facility] (MED PRIME) PREFERRED PROVIDER ORGANIZAT ION (PPO) [facility] Jul 01, 2013 32 [id number] Tracey BLISS PATIENT [facility] MENTAL HEALTH [facility] -MCR A ONLY Jul 01, 2013 [id number] Tracey BLISS PATIENT [facility]AL HE[facility]* Jan 01, 2011 [id number] Tracey BLISS PATIENT Selected Encounter This section includes the information on record at [place] for the Encounter. Date/Time Encounter Type Encounter Description Reason Provider Source Feb 11, 2024 10:45 AM DENTAL BITEWING FOUR IMAGES DENTAL ICD-10-CM K03.6 Deposits [accretions] on teeth LISA SERNA Opal IHE Encounter Template Text not used by [place] Assessments - Encounter Diagnoses This section includes the primary and secondary diagnoses documented for the Encounter. Date/Time Primary/Secondary Diagnosis Diagnosis Name Provider Source Feb 11, 2024 12:44 PM PRIMARY Deposits [accretions] on teeth JANN BUSCH [place] [facility] [facility] Feb 11, 2024 12:44 PM SECONDARY Disorder of teeth and supporting structures, unspecified [facility] Plan of Treatment: Future Appointments (+ 6 months) and Future Tests (+/- 45 days) The Plan of Treatment section includes future care activities for the patient from all [place] [facility]. This section includes future appointments and future orders which are active, pending or scheduled. Future Appointments This section includes appointments that were scheduled to occur 6 months from the date of the Encounter, up to a maximum of 20 appointments. The data comes from all [place] treatment facilities. Appointment Date/Time Appointment Type Appointme nt Facility Name Feb 16, 2024 11:30 AM AMBULATORY - NONE [place] [facility] [facility] Feb 22, 2024 01:45 PM AMBULATORY - MEDICINE [facility] [place] [facility] Mar 24, 2024 11:00 AM AMBULATORY - NONE [place] [facility] [facility] Apr 17, 2024 12:30 PM AMBULATORY - MEDICINE [facility] [place] [facility] Apr 17, 2024 01:00 PM AMBULATORY - MEDICINE [facility] [place] [facility] May 23, 2024 11:30 AM [facility] [place] [facility] May 24, 2024 10:30 AM AMBULATORY - MEDICINE [facility]TR [place] [facility] Vital Signs: All taken on the encounter date This section contains inpatient and outpatient Vital Signs collected on the date of the Encounter. Date/Time Temperature Pulse Blood Pressure Respiratory Rate SP02 Pain Height Weight Body Mass Index Source Feb 11, 2024 10:36 AM 64 171/92 0 [facility] Social History: Smoking Status (Most current) and Tobacco Use (All prior to encounter date) This section includes the most current, and the historical, smoking and tobacco- related health factors from the [place] facility where the Encounter took place. Current Smoking Status This section includes the most current smoking, or tobacco-related health factor, from the [place] facility where the Encounter took place. Date/Time Current Smoking Status Comment Nora mclaughlin Aug 04, 2023 09:00 AM [place]-TOBACCO [facility] Tobacco Use History This section includes a history of the smoking, or tobacco-related health factors, that were collected on or before the date of the Encounter. The data comes from the [place] facility where the Encounter took place. Date/Time Smoking Status/Tobacco Use Comment F acility Aug 04, 2023 09:00 AM VA-TOBACCO QUIT 15 YRS OR MORE [place] [facility] [place] [facility] Aug 05, 2022 11:30 AM VA-TOBACCO NEVER USED [place] [facility] [place] [facility] Aug 22, 2021 11:30 AM VA-TOBACCO NEVER USED [place] [facility] [facility] Apr 29, 2020 10:30 AM VA-TOBACCO NEVER USED [place] [facility] [place] [facility] September 21, 2018 09:39 AM VA-TOBACCO FORMER USER [place] [facility] [facility] September 21, 2018 09:39 AM VA-TOBACCO QUIT 15 YRS OR MORE [place] [facility] [place] [facility] Dec 31, 2017 02:50 PM QUIT TOBACCO USE > 7 YEARS AGO [place] [facility] [place] [facility] Dec 31, 2016 09:33 AM QUIT TOBACCO USE > 7 YEARS AGO [place] [facility] [place] [facility] Dec 31, 2016 09:31 AM QUIT TOBACCO USE 1 -7 YEARS AGO [place] [facility] [place] [facility] Jan 08, 2016 01:57 PM QUIT TOBACCO USE > 7 YEARS AGO [place] [facility] [place] [facility] Nov 15, 2014 10:48 AM QUIT TOBACCO USE > 7 YEARS AGO quit 1975 [facility] Advance Directives: All historical and current Section Date Range: From patient's date of to the date document was created. This section includes ALL of a patient's completed or amended [place] Advance and Rescinded Directives. The entries below indicate that a directive exists for the patient, but an actual copy is not included with this document. The data comes from all [place] facilities. Date Advance Directives Provider Source Jan 01, 2005 ADVANCE DIRECTIVE KLAUS PAZ [place] [facility] Encounter Notes: All associated encounter notes This section contains the clinical notes associated to the Encounter. Date/Time Encounter Note(s) Provider Source Feb 11, 2024 03:49 PM DENTISTRY CONSULT: LOCAL TITLE: CONSULT REPORT/DENTAL STANDARD TITLE: DENTISTRY CONSULT DATE OF NOTE: FEB 11, 2024@15:49 ENTRY DATE: FEB 11, 2024@15:49:49 AUTHOR: JANN BUSCH EXP COSIGNER: URGENCY: STATUS: COMPLETED Please refer to dental note. /darcy/ JANN BUSCH DMD Staff Dentist Signed: 02/11/2024 15:50 JANN BUSCH [place] [facility] Feb 11, 2024 03:38 PM DENTISTRY NOTE: LOCAL TITLE: DENTAL NOTE STANDARD TITLE: DENTISTRY NOTE DATE OF NOTE: FEB 11, 2024@15:38 ENTRY DATE: FEB 11, 2024@15:49:36 AUTHOR: JANN BUSCH EXP COSIGNER: URGENCY: STATUS: COMPLETED Patient Name: NED BLISS JR, : 1950, Age: 73 Visit: V: Feb 11, 2024@10:45 [facility] DENTAL RDH 2 AM NEW. Primary PCE Diagnosis: K03.6. Dental Category: 15-OPC, Class IV. Treatment Status: Maintenance. Completed Care: (D0120) PERIODIC ORAL EVAL EST. DX: K08.9 Disorder of Teeth and Supporting Structures, unspecified (D0274) DENTAL BITEWING FOUR IMAGES. DX: K08.9 Disorder of Teeth and Supporting Structures, unspecified Presentation/Chief Complaint: Patient presented to dental clinic for periodic oral evaluation during dental hygiene appointment. Feel like teeth may shift with space in front of upper left back tooth (points to area of tooth #15). 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 No dental pain. Time out performed. Used full name and date. Checked and confirmed sterilization monitors in instrument packs. Vital Signs: Dental Pain (0-10): 0 02/11/2024 10:36 General Pain (0-10): 0 02/11/2024 10:36 Blood Pressure (mmHg): 171/92 02/11/2024 10:36 Pulse (BPM): 64 02/11/2024 10:36 Reviewed medical history. Medications and allergies were reviewed and reconciled within scope of dental service. 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) Allergic Rhinitis ([facility] 79858248) Basal cell carcinoma of skin ([facility] 054573950) Hyperlipidemia ([facility] 02491000) Anxiety ([facility] [id number]) Hemorrhoid ([facility] 19627624) Under care of multiple providers ([facility] [id number]) History of surgery ([facility] 409518035) Ulcerative colitis ([facility] 34200775) Posttraumatic stress disorder ([facility] 83570698) Chronic sinusitis ([facility] [id number]) Neck pain ([facility] 97828130) Tinnitus ([facility] 68531102) Active Medications: ---- Outpatient Medication ---- BUPROPION 150MG 24HR XL TAB (ONCE DAILY) - (ACTIVE) BALSALAZIDE DISODIUM 750MG CAP - (ACTIVE) MESALAMINE 1000MG RTL SUPP - (ACTIVE) ALBUTEROL 90MCG (CFC-F) 200D ORAL INHL - (ACTIVE) FLUTICASONE PROP 50MCG 120D NASAL INHL - (ACTIVE) PHENYLEPHRINE HCL 0.25% RTL SUPP - (ACTIVE) LORAZEPAM 0.5MG TAB - (ACTIVE) CARBAMIDE PEROXIDE 6.5% OTIC SOLN - (ACTIVE) SODIUM FLUORIDE 1.1% TOOTHPASTE - (ACTIVE) CARISOPRODOL 350MG TAB - (ACTIVE) MULTIVITAMIN/MINERALS CAP/TAB - (ACTIVE) OTHER CAP/TAB - (ACTIVE) ACETAMINOPHEN 500MG TAB - (ACTIVE) DICLOFENAC NA 75MG EC TAB - (ACTIVE) Active Allergies: No Known Allergies Intraoral and Extraoral Screening Exam Findings: 02/11/2024 Head and neck assessment with oral cancer screening is negative: no apparent pathology noted. Oral soft tissues appear within normal limits. No swelling Oral Examination: Oral Health Assessment Findings: Plaque Index: 1 - Slight Xerostomia: 1 - Slight Caries Risk: 2 - Moderate Oral Hygiene: 2 - Fair Dental Examination: Missing Teeth: 1, 4, 14, 17, 18, 31, 32. Drifted: 15(M) mesially Dentition exhibits no apparent evidence of dental pathology at this visit Other: Tooth #5 - Step at mesial crown margin. No changes since previous radiographs. No pathology was detected at this visit. Watch: 5 . Asymtomatic. No signs of dental infection. No swelling. No Significant Tooth Mobility Noted Generalized 2-3 mm probing depths. Periodontal Screening/Recording (PSR): 2-2-2 - - - 2-2-2 Periodontal Assessment: Gingivitis Assessment/Plan: No dental pathology detected at this visit. - Watch mesial of tooth #5 crown as conservative option vs replacement of crown. - Follow up with primary dental provider - evaluate for maxillary occlusal guard No urgent dental needs or acute dental infections noted on examination. Reviewed findings, risks/benefits/alternatives associated with the proposed treatment plan. Patient indicated understanding and agreement to treatment plan as discussed. Opportunity was provided for questions. Answered all questions. Advised him to call if he has concerns. Disposition: Next dental visit: Follow up with primary dental provider Dr. Mercedes - evaluate for maxillary occlusal guard Patient to return to dental clinic for continuing care. - - - - - - - - - - - - - - - - - - - - - - - - - - - - - - /darcy/ JANN BUSCH DMD Staff Dentist Signed: 02/11/2024 15:49 Receipt Acknowledged By: 02/15/2024 14:05 /moe MERCEDES DMD Staff Dentist JANN BUSCH [facility]L [facility] Feb 11, 2024 12:42 PM DENTISTRY NOTE: LOCAL TITLE: DENTAL NOTE STANDARD TITLE: DENTISTRY NOTE DATE OF NOTE: FEB 11, 2024@12:42 ENTRY DATE: FEB 11, 2024@12:44:53 AUTHOR: ROBERT SERNA EXP COSIGNER: URGENCY: STATUS: COMPLETED Patient Name: NED BLISS JR, : 1950, Age: 73 Visit: S: Feb 11, 2024@10:45 [facility] DENTAL [facility] 2 AM NEW. Primary PCE Diagnosis: K03.6 (Deposits [accretions] on teeth). Dental Category: 15-OPC, Class IV. Treatment Status: Maintenance. Completed Care: (D1110) DENTAL PROPHYLAXIS ADULT. DX: K03.6 Deposits [Accretions] on Teeth (D1206) TOPICAL FLUORIDE VARNISH. DX: K03.6 Deposits [Accretions] on Teeth (D1330) ORAL HYGIENE INSTRUCTION. DX: K03.6 Deposits [Accretions] on Teeth (D9994) CASE MGMT-ORAL HEALTH LIT. DX: K03.6 Deposits [Accretions] on Teeth TIME OUT/Safety goals were verified immediately prior to the procedure. (Correct patient, procedure, site, position) Full name and date used. STERILIZATION MONITOR IN INSTRUMENT PACK CHECKED AND CONFIRMED CC: NONE PAST MEDICAL HISTORY: Reviewed, no contraindications for treatment LAST RADIOGRAPHS: PANO 08/23 BWX 08/23 NEW RADIOGRAPHS: 4 bwx SOFT TISSUE SCREENING: no abnormalities noted EXAMINATION: Dr Bro see note ORAL HYGIENE ASSESSMENT: plaque light stain light PERIODONTAL ASSESSMENT: calculus light inflamation light bop light probing deepth 2-4 mm recession general REVIEWED ORAL HEALTH REPORT: CARIES RISK: moderate GUM DISEASE: high ORAL CANCER RISK: low DENTAL TREATMENT PROVIDED: PROPHYLAXIS: hand scaling, piezo, [place] island[place] TOPICAL FLUORIDE APPLICATION - [place] pre post procedular rinse 30 sec ORAL HYGIENE INSTRUCTIONS GIVEN TO PATIENT: [place] your teeth at least twice a day using a gentle circular motion. Use a fluoride toothpaste. Use a soft-bristled brush to prevent damage to your gums. Remember to brush your tongue to remove bacteria. Consider using a mouthwash with fluoride. Replace your toothbrush or toothbrush head every 3 to 4 months Drink a glass of water after youve eaten or had a sugary drink to help remove any sugar or food particles on your teeth and gums. Eat a well-balanced diet that includes plenty of fruits and vegetables, and limit your consumption of sugary foods and beverages. Visit your dentist twice a year for routine cleanings and checkups. DISPOSITION: 6 MONTHS RECARE Oral Health Assessment Findings: Plaque Index: 1 - Slight Xerostomia: 0 - None Caries Risk: 3 - High Oral Hygiene: 3 - Poor - - - - - - - - - - - - - - - - - - - - - - - - - - - - - - NV: 6 mo recall /darcy/ ROBERT SERNA RDH [facility], DENTAL SERVICE Signed: 02/11/2024 12:44 [facility]
--- OUTSIDE RECORDS SUMMARY | 2024-04-11 18:56 | XMS_ITS ---
Author Name [facility] [place] Organization [place] Address [address] [place] [id number] Care Team Providers Care Barrel Brander Name Role Phone LINDA PALOMINO Primary Care [...] Relationship to Policy Banegas CAREMARK PRESCRIPT ION [facility] May 03, 2018 [id number] [phone] Tracey BLISS PATIENT CIG[employer] BEHAVIORAL HEALTH MENTAL HEALTH [facility] Jul 01, 2013 [id number] [facility] CIGNA/NALC PREFERRED PROVIDER ORGANIZAT ION (PPO) [facility] Jul 01, 2013 [id number] Tracey BLISS PATIENT CIGNA/NALC PREFERRED PROVIDER ORGANIZAT ION (PPO) [facility] Jan 01, 2011 [id number] [facility] CIGNA/NALC PREFERRED PROVIDER ORGANIZAT ION (PPO) [facility] HEALT H BENEF Jan 01, 2011 [id number] Tracey BLISS PATIENT MEDICARE (WNR) MEDICARE (M) PART B Jul 01, 2013 PART B [id number] [id number] Tracey BLISS PATIENT MEDICARE (WNR) MEDICARE (M) PART A Jul 01, 2013 PART A [id number] [phone] Tracey BLISS PATIENT MEDICARE (WNR) MEDICARE (M) PART A Jul 01, 2013 PART A [id number] Tracey BLISS PATIENT [facility] PREFERRED PROVIDER ORGANIZAT ION (PPO) [facility] May 03, 2018 32 [id number] [phone] Tracey BLISS PATIENT [facility] (MED PRIME) PREFERRED PROVIDER ORGANIZAT ION (PPO) [facility] Jul 01, 2013 [id number] Tracey BLISS PATIENT [facility] (MED PRIME) PREFERRED PROVIDER ORGANIZAT ION (PPO) [facility] Jul 01, 2013 [id number] Tracey BLISS PATIENT [employer] MENTAL HEALTH [facility] -MCR A ONLY Jul 01, 2013 [id number] Tracey BLISS PATIENT [facility] MENTAL HEALTH [facility]* Jan 01, 2011 [id number] Tracey BLISS PATIENT Selected Encounter This section includes the information on record at [place] for the Encounter. Date/Time Encounter Type Encounter Description Reason Provider Source Feb 16, 2024 11:30 AM RE-EVAL,EST PT,PROBLEM FOCUS DENTAL ICD-10-CM K08.9 Disorder of teeth and supporting structures, unspecified ASHUTOSH MERCEDES Morgan Encounter Template Text not used by [place] Assessments - Encounter Diagnoses This section includes the primary and secondary diagnoses documented for the Encounter. Date/Time Primary/Secondary Diagnosis Diagnosis Name Provider Source Feb 16, 2024 01:51 PM PRIMARY Disorder of teeth and supporting structures, unspecified ASHUTOSH MERCEDES [place] [facility] [facility] Plan of Treatment: Future Appointments (+ 6 months) and Future Tests (+/- 45 days) The Plan of Treatment section includes future care activities for the patient from all [place] [facility]. This section includes future appointments and future orders which are active, pending or scheduled. Future Appointments This section includes appointments that were scheduled to occur 6 months from the date of the Encounter, up to a maximum of 20 appointments. The data comes from all [place] treatment facilities. Appointment Date/Time Appointment Type Appointme nt Facility Name Feb 22, 2024 01:45 PM AMBULATORY - MEDICINE [place] [facility] [place] [facility] Mar 24, 2024 11:00 AM AMBULATORY - NONE [place] [facility] [facility] Apr 17, 2024 12:30 PM AMBULATORY - MEDICINE [place] [facility] [place] [facility] Apr 17, 2024 01:00 PM AMBULATORY - MEDICINE [place] [facility] [facility] May 23, 2024 11:30 AM AMBULATORY - PSYCHIATRY [place] [facility] [facility] May 24, 2024 10:30 AM AMBULATORY - MEDICINE [facility] [place] [facility] Social History: Smoking Status (Most current) and Tobacco Use (All prior to encounter date) This section includes the most current, and the historical, smoking and tobacco- related health factors from the [place] facility where the Encounter took place. Current Smoking Status This section includes the most current smoking, or tobacco-related health factor, from the [place] facility where the Encounter took place. Date/Time Current Smoking Status Comment Facil ity Aug 04, 2023 09:00 AM VA-TOBACCO FORMER USER [place] [facility] Tobacco Use History This section includes a history of the smoking, or tobacco-related health factors, that were collected on or before the date of the Encounter. The data comes from the [place] facility where the Encounter took place. Date/Time Smoking Status/Tobacco Use Comment F acility Aug 04, 2023 09:00 AM VA-TOBACCO QUIT 15 YRS OR MORE [place] [facility] [facility] Aug 05, 2022 11:30 AM VA-TOBACCO NEVER USED [place] [facility] [facility] Aug 22, 2021 11:30 AM VA-TOBACCO NEVER USED [place] [facility] [facility] Apr 29, 2020 10:30 AM VA-TOBACCO [facility] September 21, 2018 09:39 AM VA-TOBACCO FORMER USER [facility] September 21, 2018 09:39 AM VA-TOBACCO QUIT 15 YRS OR MORE [facility] Dec 31, 2017 02:50 PM QUIT TOBACCO USE > 7 YEARS AGO [facility] Dec 31, 2016 09:33 AM QUIT TOBACCO USE > 7 YEARS AGO [facility] Dec 31, 2016 09:31 AM QUIT TOBACCO USE 1 -7 YEARS AGO [facility] Jan 08, 2016 01:57 PM QUIT TOBACCO USE > 7 YEARS AGO [facility] Nov 15, 2014 10:48 AM QUIT TOBACCO USE > 7 YEARS AGO quit 1975 [facility] Advance Directives: All historical and current Section Date Range: From patient's date of to the date document was created. This section includes ALL of a patient's completed or amended [place] Advance and Rescinded Directives. The entries below indicate that a directive exists for the patient, but an actual copy is not included with this document. The data comes from all [place] facilities. Date Advance Directives Provider Source Jan 01, 2005 ADVANCE DIRECTIVE KLAUS PAZ [facility] Encounter Notes: All associated encounter notes This section contains the clinical notes associated to the Encounter. Date/Time Encounter Note(s) Provider Source Feb 16, 2024 01:50 PM DENTISTRY NOTE: LOCAL TITLE: DENTAL NOTE STANDARD TITLE: DENTISTRY NOTE DATE OF NOTE: FEB 16, 2024@13:50 ENTRY DATE: FEB 16, 2024@13:51:58 AUTHOR: ASHUTOSH MERCEDES COSIGNER: URGENCY: STATUS: COMPLETED Patient Name: NED BLISS , : 1950, Age: 73 Visit: S: Feb 16, 2024@11:30 [facility] DENT[facility] DMD 3 AM. Primary PCE Diagnosis: K08.9 (DISORDER OF TEETH AND SUPPORTING STRUCTURES, UNSPECIFIED). Dental Category: 15-OPC, Class IV. Treatment Status: Maintenance. Completed Care: (D0170) RE-EVAL,EST PT,PROBLEM FOCUS. DX: K08.9 Disorder of Teeth and Supporting Structures, unspecified The patient was identified by full name and social security number Reviewed the patient's medical/dental history, medications and allergies. I performed medication reconciliation within the scope of my practice. All medications related to dentistry are up to date. Discussed above proposed treatment plan. Patient understands and agrees with the treatment plan. Presentation/Chief Complaint: Patient presents for re-evaluation I would like a immigration guard Vital Signs: Vital signs not obtained Past Medical History and Medications: No significant changes since the last dental visit Oral Examination: Other: Upper impression taken for fabricating the immigration guard. Assessment/Plan: No contraindications for planned procedure(s). Planned Procedures: Unsequenced (D9945) OCCLUSAL GUARD SOFT: . DX: (). Reviewed risks/benefits/alternatives associated with the proposed treatment plan. Patient agrees to treatment plan as discussed. Disposition: Next visit: Delivery immigration guard, t+4w, 30mins Patient to return to dental clinic for continuing care. - - - - - - - - - - - - - - - - - - - - - - - - - - - - - - /darcy/ ASHUTOSH MERCEDES DMD Staff Dentist Signed: 02/16/2024 13:51 ASHUTOSH MERCEDES [facility]L [facility]
--- OUTSIDE RECORDS SUMMARY | 2024-04-11 18:56 | XMS_ITS | Encounter Summary ---
Author Name [place] Address [address] [place] [id number] Care Team Providers Care Merchandise Presentation Manager Name Role Phone LINDA PALOMINO Primary [...] Relationship to Policy Banegas CAREMARK PRESCRIPT ION [facility] May 03, 2018 [id number] Tracey BLISS PATIENT [employer] [facility] MENTAL HEALTH [facility] Jul 01, 2013 [id number] [facility]IG[facility]/NALC PREFERRED PROVIDER ORGANIZAT ION (PPO) [facility] Jul 01, 2013 32 [id number] [phone] [facility] CIGNA/NALC PREFERRED PROVIDER ORGANIZAT ION (PPO) [facility] Jan 01, 2011 [id number] [phone] Tracey BLISS PATIENT CIGNA/NALC PREFERRED PROVIDER ORGANIZAT ION (PPO) [facility] HEALT H BENEF Jan 01, 2011 [id number] [phone] Tracey BLISS PATIENT MEDICARE (WNR) MEDICARE (M) PART B Jul 01, 2013 PART B [id number] Tracey BLISS PATIENT MEDICARE (WNR) MEDICARE (M) PART A Jul 01, 2013 PART A [id number] [phone] Tracey BLISS PATIENT MEDICARE (WNR) MEDICARE (M) PART A Jul 01, 2013 PART A [id number] Tracey BLISS PATIENT [facility] PREFERRED PROVIDER ORGANIZAT ION (PPO) [facility] May 03, 2018 32 [id number] [phone] Tracey BLISS PATIENT [facility] (MED PRIME) PREFERRED PROVIDER ORGANIZAT ION (PPO) [facility] Jul 01, 2013 322 [id number] Tracey BLISS PATIENT [facility] (MED PRIME) PREFERRED PROVIDER ORGANIZAT ION (PPO) [facility] Jul 01, 2013 32 [id number] Tracey BLISS PATIENT [facility]AL HE[facility] -MCR A ONLY Jul 01, 2013 [id number] Tracey BLISS PATIENT [facility]* Jan 01, 2011 [id number] Tracey BLISS PATIENT Selected Encounter This section includes the information on record at [place] for the Encounter. Date/Time Encounter Type Encounter Description Reason Pro vider Source Feb 15, 2024 09:41 AM Outpatient Encounter DENTAL IHE Encounter Template Text not used by [facility] Plan of Treatment: Future Appointments (+ 6 months) and Future Tests (+/- 45 days) The Plan of Treatment section includes future care activities for the patient from all [place] treatmentfacilities. This section includes future appointments and future orders which are active, pending or scheduled. Future Appointments This section includes appointments that were scheduled to occur 6 months from the date of the Encounter, up to a maximum of 20 appointments. The data comes from all [place] treatment facilities. Appointment Date/Time Appointment Type Appointme nt Facility Name Feb 16, 2024 11:30 AM AMBULATORY - NONE [facility] [place] [facility] Feb 22, 2024 01:45 PM AMBULATORY - MEDICINE [facility] [place] [facility] Mar 24, 2024 11:00 AM AMBULATORY - NONE [facility] [place] [facility] Apr 17, 2024 12:30 PM AMBULATORY - MEDICINE [facility] [place] [facility] Apr 17, 2024 01:00 PM AMBULATORY - MEDICINE [facility] [place] [facility] May 23, 2024 11:30 AM AMBULATORY - PSYCHIATRY [facility] [place] [facility] May 24, 2024 10:30 AM AMBULATORY - MEDICINE [facility] [place] [facility] Social History: Smoking Status (Most current) and Tobacco Use (All prior to encounter date) This section includes the most current, and the historical, smoking and tobacco- related health factors from the [place] facility where the Encounter took place. Current Smoking Status This section includes the most current smoking, or tobacco-related health factor, from the [place] facility where the Encounter took place. Date/Time Current Smoking Status Comment Facil ity Aug 04, 2023 09:00 AM VA-TOBACCO FORMER USER [place] [facility] [place] [facility] Tobacco Use History This section includes a history of the smoking, or tobacco-related health factors, that were collected on or before the date of the Encounter. The data comes from the [place] facility where the Encounter took place. Date/Time Smoking Status/Tobacco Use Comment F acility Aug 04, 2023 09:00 AM VA-TOBACCO QUIT 15 YRS OR MORE [facility] [place] [facility] Aug 05, 2022 11:30 AM VA-TOBACCO NEVER USED [facility] [place] [facility] Aug 22, 2021 11:30 AM VA-TOBACCO NEVER USED [facility] [place] [facility] Apr 29, 2020 10:30 AM VA-TOBACCO NEVER USED [facility] [place] [facility] September 21, 2018 09:39 AM VA-TOBACCO FORMER USER [facility] [place] [facility] September 21, 2018 09:39 AM VA-TOBACCO QUIT 15 YRS OR MORE [facility] [place] [facility] Dec 31, 2017 02:50 PM QUIT TOBACCO USE > 7 YEARS AGO [facility] [place] [facility] Dec 31, 2016 09:33 AM QUIT TOBACCO USE > 7 YEARS AGO [facility] [place] [facility] Dec 31, 2016 09:31 AM QUIT TOBACCO USE 1 -7 YEARS AGO [facility] [place] [facility] Jan 08, 2016 01:57 PM QUIT TOBACCO USE > 7 YE[facility] A[facility] Nov 15, 2014 10:48 AM QUIT TOBACCO USE > 7 YEARS AGO [facility] Advance Directives: All historical and current Section Date Range: From patient's date of to the date document was created. This section includes ALL of a patient's completed or amended [place] Advance and Rescinded Directives. The entries below indicate that a directive exists for the patient, but an actual copy is not included with this document. The data comes from all [place] facilities. Date Advance Directives Provider Source Jan 01, 2005 ADVANCE DIRECTIVE [facility] Encounter Notes: All associated encounter notes This section contains the clinical notes associated to the Encounter. Date/Time Encounter Note(s) Provider Source Feb 15, 2024 09:41 AM DENTISTRY TELEPHON E ENCOUNTER NOTE: LOCAL TITLE: TELEPHONE NOTE/DENTAL STANDARD TITLE: DENTISTRY TELEPHONE ENCOUNTER NOTE DATE OF NOTE: FEB 15, 2024@09:41 ENTRY DATE: FEB 15, 2024@09:41:22 AUTHOR: LUIS FERNANDO MACEDO EXP COSIGNER: URGENCY: STATUS: COMPLETED Spoke with pt to confirm dental appointment on 02/16/2024 at 11:30 am. /darcy/ LUIS FERNANDO MACEDO ADVANCED HEALTH CARE ASSISTANT Signed: 02/15/2024 09:41 LUIS FERNANDO MACEDO [facility]
--- OUTSIDE RECORDS SUMMARY | 2024-04-11 18:57 | XMS_ITS | Encounter Summary ---
Author Name [facility] [place] Address [address] [place] [address] Care Team Providers Care Books Binder Name Role Phone LINDA PALOMINO Primary Care [...] Relationship to Policy Banegas CAREMARK PRESCRIPT ION [facility] May 03, 2018 [id number] [phone] Tracey BLISS PATIENT [employer] [facility] MENTAL HEALTH [facility] Jul 01, 2013 322 [id number] [facility] CIGNA/NALC PREFERRED PROVIDER ORGANIZAT ION (PPO) [facility] Jul 01, 2013 32 [id number] [phone] [facility] CIGNA/NALC PREFERRED PROVIDER ORGANIZAT ION (PPO) [facility] Jan 01, 2011 [id number] [phone] Tracey BLISS PATIENT CIGNA/NALC PREFERRED PROVIDER ORGANIZAT ION (PPO) [facility] HEALT H BENEF Jan 01, 2011 [id number] [phone] Tracey BLISS PATIENT MEDICARE (WNR) MEDICARE (M) PART B Jul 01, 2013 PART B [id number] Tracey BLISS PATIENT MEDICARE (WNR) MEDICARE (M) PART A Jul 01, 2013 PART A [id number] [phone] Tracey BLISS PATIENT MEDICARE (WNR) MEDICARE (M) PART A Jul 01, 2013 PART A [id number] Tracey BLISS PATIENT [facility] PREFERRED PROVIDER ORGANIZAT ION (PPO) [facility] May 03, 2018 32 [id number] Tracey BLISS PATIENT [facility] (MED PRIME) PREFERRED PROVIDER ORGANIZAT ION (PPO) [facility] Jul 01, 2013 322 [id number] Tracey BLISSH PATIENT [facility] (MED PRIME) PREFERRED PROVIDER ORGANIZAT ION (PPO) [facility] Jul 01, 2013 32 [id number] Tracey BLISS PATIENT [facility]AL HE[facility] -MCR A ONLY Jul 01, 2013 [id number] Tracey BLISS PATIENT [facility]* Jan 01, 2011 [id number] Tracey BLISS PATIENT Selected Encounter This section includes the information on record at [place] for the Encounter. Date/Time Encounter Type Encounter Description Reason Provider Source Mar 24, 2024 11:00 AM OCCLUSAL GUARD SOFT DENTAL ICD-10-CM K08.9 Disorder of teeth and supporting structures, unspecified ASHUTOSH MERCEDES [facility] Encounter Template Text not used by [place] Assessments - Encounter Diagnoses This section includes the primary and secondary diagnoses documented for the Encounter. Date/Time Primary/Secondary Diagnosis Diagnosis Name Provider Source Mar 24, 2024 01:48 PM PRIMARY Disorder of teeth and supporting structures, unspecified ASHUTOSH MERCEDES [facility] [place] [facility] Plan of Treatment: Future Appointments (+ 6 months) and Future Tests (+/- 45 days) The Plan of Treatment section includes [facility] care [facility] [place] [facility] This section includes future appointments and future orders which are active, pending or scheduled. Future Appointments This section includes appointments that were scheduled to occur 6 months from the date of the Encounter, up to a maximum of 20 appointments. The data comes from all [place] treatment facilities. Appointment Date/Time Appointment Type Appointme nt Facility Name Apr 17, 2024 12:30 PM AMBULATORY - MEDICINE [place] [facility] [place] [facility] Apr 17, 2024 01:00 PM AMBULATORY - MEDICINE [place] [facility] [place] [facility] May 23, 2024 11:30 AM AMBULATORY - PSYCHIATRY [facility] [place] [facility] May 24, 2024 10:30 AM AMBULATORY - MEDICINE [place] [facility] [place] [facility] Social History: Smoking Status (Most current) [...] 04, 2023 09:00 AM VA-TOBACCO FORMER USER [facility] [place] [facility] Tobacco Use History This section includes a history of the smoking, or tobacco-related health factors, that were collected on or before the date of the Encounter. The data comes from the [place] facility where the Encounter took place. Date/Time Smoking Status/Tobacco Use Comment F acility Aug 04, 2023 09:00 AM VA-TOBACCO QUIT 15 YRS OR MORE [facility] [place] [facility] Aug 05, 2022 11:30 AM VA-TOBACCO NEVER USED [facility] [place] [facility] Aug 22, 2021 11:30 AM VA-TOBACCO NEVER USED [facility] [place] [facility] Apr 29, 2020 10:30 AM VA-TOBACCO NEVER USED [facility] [place] [facility] September 21, 2018 09:39 AM VA-TOBACCO FORMER USER [facility] [place] [facility] September 21, 2018 09:39 AM VA-TOBACCO QUIT 15 YRS OR MORE [facility] [place] [facility] Dec 31, 2017 02:50 PM QUIT TOBACCO USE > 7 YEARS AGO [facility] Dec 31, 2016 09:33 AM QUIT TOBACCO USE > 7 YEARS AGO [facility] Dec 31, 2016 09:31 AM QUIT TOBACCO USE 1 -7 YEARS AGO [facility] Jan 08, 2016 01:57 PM QUIT TOBACCO USE > 7 YEARS AGO [facility] Nov 15, 2014 10:48 AM QUIT TOBACCO USE > 7 YEARS AGO quit 1975 [facility] Advance Directives: All historical and current [...] Jan 01, 2005 ADVANCE DIRECTIVE KLAUS PAZ [facility] Encounter Notes: All associated encounter notes This section contains the clinical notes associated to the Encounter. Date/Time Encounter Note(s) Provider Source Mar 24, 2024 01:47 PM DENTISTRY NOTE: LOCAL TITLE: DENTAL NOTE STANDARD TITLE: DENTISTRY NOTE DATE OF NOTE: MAR 24, 2024@13:47 ENTRY DATE: MAR 24, 2024@13:48:42 AUTHOR: ASHUTOSH MERCEDES COSIGNER: URGENCY: STATUS: COMPLETED Patient Name: NED BLISS , : 1950, Age: 73 Visit: S: Mar 24, 2024@11:00 [facility] DENTAL DMD 3 AM. Primary PCE Diagnosis: K08.9 (DISORDER OF TEETH AND SUPPORTING STRUCTURES, UNSPECIFIED). Dental Category: 15-OPC, Class IV. Treatment Status: Maintenance. Completed Care: ([id number]) OCCLUSAL GUARD SOFT. DX: K08.9 Disorder of Teeth and Supporting Structures, unspecified - - - - - - - - - - - - - - - - - - - - - - - - - - - - - - The patient was identified by full name and social security number Reviewed the patient's medical/dental history, medications and allergies. I performed medication reconciliation within the scope of my practice. All medications related to dentistry are up to date. Discussed above proposed treatment plan. Patient understands and agrees with the treatment plan. Patient presentd for the guard driver delivery.Patient tried on the guard driver and feel comfortable. POI was given. NV: Recall/prn /es/ ASHUTOSH MERCEDES DMD Staff Dentist Signed: 03/24/2024 13:48 [facility]H [facility]EDES [facility]
--- OUTSIDE RECORDS SUMMARY | 2024-04-11 18:57 | XMS_ITS | Encounter Summary ---
Author Name [facility] [place] Organization [place] Address [address] [place] [address] Care Team Providers Care Laundry Or Dry Cleaners Counter Clerk Name Role Phone LINDA PALOMINO Primary Care [...] Relationship to Policy Banegas CAREMARK PRESCRIPT ION [facility] May 03, 2018 [id number] Tracey BLISS PATIENT [employer] BEHAVIORAL HEALTH MENTAL HEALTH [facility] Jul 01, 2013 [id number] [facility] CIGNA/NALC PREFERRED PROVIDER ORGANIZAT ION (PPO) [facility] Jul 01, 2013 32 [id number] [facility] CIGNA/NALC PREFERRED PROVIDER ORGANIZAT ION (PPO) [facility] Jan 01, 2011 [id number] Tracey BLISS PATIENT CIGNA/NALC PREFERRED PROVIDER ORGANIZAT ION (PPO) [facility] HEALT H BENEF Jan 01, 2011 [id number] Tracey BLISS PATIENT MEDICARE (WNR) MEDICARE (M) PART B Jul 01, 2013 PART B [id number] Tracey BLISS PATIENT MEDICARE (WNR) MEDICARE (M) PART A Jul 01, 2013 PART A [id number] Tracey BLISS PATIENT MEDICARE (WNR) MEDICARE (M) PART A Jul 01, 2013 PART A [id number] Tracey BLISS PATIENT [facility] PREFERRED PROVIDER ORGANIZAT ION (PPO) [facility] May 03, 2018 [id number] Tracey BLISS PATIENT [facility] (MED PRIME) PREFERRED PROVIDER ORGANIZAT ION (PPO) [facility] Jul 01, 2013 [id number] Tracey BLISS PATIENT [facility] (MED PRIME) PREFERRED PROVIDER ORGANIZAT ION (PPO) [facility] Jul 01, 2013 32 [id number] Tracey BLISS PATIENT [facility] M[facility]AL HE[facility] -MCR A ONLY Jul 01, 2013 [id number] Tracey BLISS PATIENT [facility]* Jan 01, 2011 [id number] Tracey BLISS PATIENT Selected Encounter This section includes the information on record at [place] for the Encounter. Date/Time Encounter Type Encounter Description Reason Pro vider Source Mar 23, 2024 08:46 AM Outpatient Encounter DENTAL IHE Encounter Template Text not used by [place] Plan of Treatment: Future Appointments (+ 6 months) and Future Tests (+/- 45 days) The Plan of Treatment section includes future care activities for the patient from all [place] treatmentfacilities. This section includes future appointments and future orders which are active, pending or scheduled. Future Appointments This section includes appointments that were scheduled to occur 6 months from the date of the Encounter, up to a maximum of 20 appointments. The data comes from all [place] treatment facilities. Appointment Date/Time Appointment Type Appointme nt Facility Name Mar 24, 2024 11:00 AM AMBULATORY - NONE [facility] [place] [facility] Apr 17, 2024 12:30 PM AMBULATORY - MEDICINE [facility] [place] [facility] Apr 17, 2024 01:00 PM AMBULATORY - MEDICINE [facility] [place] [facility] May 23, 2024 11:30 AM AMBULATORY - PSYCHIATRY [facility] [place] [facility] May 24, 2024 10:30 AM AMBULATORY - MEDICINE [place] [facility] [place] [facility] Social History: Smoking Status (Most [...] 04, 2023 09:00 AM VA-TOBACCO FORMER USER [place] [facility] [place] [facility] Tobacco Use History This section includes a history of the smoking, or tobacco-related health factors, that were collected on or before the date of the Encounter. The data comes from the [place] facility where the Encounter took place. Date/Time Smoking Status/Tobacco Use Comment F acility Aug 04, 2023 09:00 AM VA-TOBACCO QUIT 15 YRS OR MORE [facility] [place] [facility] Aug 05, 2022 11:30 AM VA-TOBACCO NEVER USED [facility] [place] [facility] Aug 22, 2021 11:30 AM VA-TOBACCO NEVER USED [facility] [place] [facility] Apr 29, 2020 10:30 AM VA-TOBACCO NEVER USED [facility] [place] [facility] September 21, 2018 09:39 AM VA-TOBACCO FORMER USER [facility] [place] [facility] September 21, 2018 09:39 AM VA-TOBACCO QUIT 15 YRS OR MORE [facility] [place] [facility] Dec 31, 2017 02:50 PM QUIT TOBACCO USE > 7 YEARS AGO [facility] [place] [facility] Dec 31, 2016 09:33 AM QUIT TOBACCO USE > 7 YEARS AGO [facility] [place] [facility] Dec 31, 2016 09:31 AM QUIT TOBACCO USE 1 -7 YEARS AGO [facility] Jan 08, 2016 01:57 PM QUIT TOBACCO USE > 7 YEARS AGO [facility] Nov 15, 2014 10:48 AM QUIT TOBACCO USE > 7 YEARS AGO quit 1975 [facility] Advance Directives: All historical and [...] Jan 01, 2005 ADVANCE DIRECTIVE KLAUS PAZ [facility] Encounter Notes: All associated encounter notes This section contains the clinical notes associated to the Encounter. Date/Time Encounter Note(s) Provider Source Mar 23, 2024 08:46 AM DENTISTRY TELEPHON E ENCOUNTER NOTE: LOCAL TITLE: TELEPHONE NOTE/DENTAL STANDARD TITLE: DENTISTRY TELEPHONE ENCOUNTER NOTE DATE OF NOTE: MAR 23, 2024@08:46 ENTRY DATE: MAR 23, 2024@08:47 AUTHOR: LUIS FERNANDO MACEDO EXP COSIGNER: URGENCY: STATUS: COMPLETED Spoke with pt to confirm dental appointment on 03/24/2024 at 11:00 am. /darcy/ LUIS FERNANDO MACEDO ADVANCED FIREFIGHTER Signed: 03/23/2024 08:47 LUIS FERNANDO MACEDO [facility]
--- OUTSIDE RECORDS SUMMARY | 2024-04-11 18:59 | XMS_ITS ---
Author Organization Jose Greer MD Address [address] [place] [phone] Care Team Providers Care Computer Terminal Operator Name Role Phone Jose Greer Primary Care Provider ALLERGIES No Known Allergies RESULTS Component Value Reference Range Notes Occult Blood, Stool, Guaiac Reviewed date:08/31/2023 11:12:08 AM Interpretation:Negative Performing Lab: Notes/Report: Negative Occult Blood, Stool, Guaiac Neg REASON FOR VISIT ANNUAL EXAM/ [facility] 3.88 was 2.58 2019, No Covid symptoms, c/o tremor right hand MEDICATIONS Medication SIG (Take, Route, Frequency, Duration) Notes Start Date End Date Status Canasa 1000 MG 1 suppository at bed time Rectal Once a day for 30 day(s) Not-Taking Soma 250 MG 1 tablet as needed Orally PRN Not-Taking Valtrex 1 GM 1 tablet Orally 3 TI MES for 7 days 10/31/2012 Not-Taking traMADol HCl 50 MG 1 tablet as needed Orally every 6 hrs Not-Taking Diclofenac 35 MG 1 capsule as needed Orally Three times a day Not-Best ing buPROPion HCl ER (Smoking Det) 150 MG 1 tablet Orally once a day Active Ocuvite Adult 50+ Orally Ac tive Albuterol Sulfate HFA 108 (90 Base) MCG/ACT 2 puffs as needed Inhalation every 4 hrs Active Balsalazide Disodium 750 MG 3 capsules Orally BID for 30 day(s) Active SOCIAL HISTORY Tobacco Use: Social History Observation Description Date Details (start date - stop date) Former Smoker NA - NA Sex Assigned At : Social History Observation Description Sex Assigned At Unknown Tobacco Use/Smoking Question Answer Notes Patient is a former smoker How long has it been since y ou last smoked? > 10 years Additional Findings: Tobacco Non-User Fo rmer smoker, currently using no form of tobacco Alcohol Screen Question Answer Notes Did you have a drink contain ing alcohol in the past year? Yes How often did you have a dri nk containing alcohol in the past year? Monthly or less (1 point) How many drinks did you have on a typical day when you were drinking in the past year? 1 or 2 drinks (0 point) How often did you have 6 or more drinks on one occasion in the past year? Never (0 point) Points 1 Interpretation Negative PROBLEMS Problem Type ICD Code Onset Dates Problem Status W/U Status Risk SNOMED Code Notes Problem Essential tremor (G25.0) Active confirmed 358973061 VITAL SIGNS BMI 27.89 kg/m2 08/31/2023 Blood pressure systolic 132 mm Hg 08/31/19 24 Blood pressure diastolic 60 mm Hg 024 Height 71 in 08/31/2023 Weight 200 lbs 08/31/2023 Encounters Encounter Location Date Provider Diagnosis Jose Greer MD [address] [place], [place] [id number] 08/31/2023 Jose Greer Rising PSA level R97 .20 ; Annual physical exam Z00.00 ; Elevated BUN R79.9 ; Essential tremor G25.0 ; 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 ; Prediabetes R73.09 ; Pure hypercholesterolemia E78.00 ; Colon cancer screening Z12.11 and Depression screening Z13.31 ASSESSMENTS Encounter Date Diagnosis Assessment Notes Treatment Notes Treatment Clinical Notes 08/31/2023 Rising PSA level (IC D-10 - R97.20) will continue to monitor,labs pending 08/31/2023 Annual physical exam (ICD-10 - Z00.00) labs reviewed and discussed with patient 08/31/2023 Elevated BUN (ICD-10 - R79.9) labs pending 08/31/2023 Essential tremor (IC D-10 - G25.0) will observe 08/31/2023 [place] palsy (ICD-10 - G51.0) has almost completely resolved 08/31/2023 Prediabetes (ICD-10 - R73.09) stable, no need for medicatin at this time 08/31/2023 Pure hypercholestero lemia (ICD-10 - E78.00) stable, will continue current regiment 08/31/2023 Colon cancer screeni ng (ICD-10 - Z12.11) guaiac negative 08/31/2023 Depression screening (ICD-10 - Z13.31) negative screen PLAN OF TREATMENT Treatment Notes Assessment Notes Rising PSA level will continue to mon itor,labs pending Annual physical exam labs reviewed and d iscussed with patient Elevated BUN labs pending Essential tremor will observe [place] palsy has almost completel y resolved Prediabetes stable, no need for medicatin at this time Pure hypercholesterolemia stable, will c ontinue current regiment Colon cancer screening guaiac negative Depression screening negative screen Next Appt Details Follow Up: 6 Months, Reason: psa Provider Name:Jose cowan, 08/29/2024 07:30:00 AM, [address] [place] [address], [address], [phone], Provider Name:Jose cowan, 09/05/2024 10:30:00 AM, [address] [place] [address], [address] [place] [address], [phone], Progress Notes * Examination Category Sub-Category Detail Notes General Examination GENERAL APPEARANCE: well dev eloped, well nourished, in no acute distress HEAD: normocephalic, atrau matic EYES: pupils equal, round, reactive to light and accommodation, sclera non- icteric EARS: normal THROAT: clear NECK/THYROID: neck supple, full ra nge of motion, no cervical lymphadenopathy, no bruits HEART: regular rate and rhy thm, S1, S2 normal, no murmurs LUNGS: clear to auscultatio n bilaterally ABDOMEN: soft, nontender, non distended, bowel sounds present, normal, no organomegaly , no masses palpable NEUROLOGIC: nonfocal, motor stre ngth normal upper and lower extremities, sensory exam intact SKIN: warm and dry, no ricco picious lesions EXTREMITIES: no clubbing, cyanosi s, or edema MALE GENITOURINARY: circumcised, testes descended bilaterally, no testicular mass RECTAL EXAM: normal tone, no exte rnal hemorrhoids, no masses palpable, prostate normal, stool guaiac negative ORAL CAVITY: mucosa moist History and Physical Notes * HPI (History of Present Illness) Category Sub-Category Detail Notes Depression Screening PHQ-9 Little inte rest or pleasure in doing things: Not at all Feeling down, depressed, or hopeless: No t at all Trouble falling or staying asleep, or sl eeping too much: Not at all Feeling tired or having little energy: N ot at all Poor appetite or overeating: Not at all Feeling bad about yourself o r that you are a failure, or have let yourself or your family down: Not at all Trouble concentrating on thi ngs, such as reading the newspaper or watching television: Not at all Moving or speaking so slowly that other people could have noticed; or the opposite, being so fidgety or restless that you have been moving around a lot more than usual: Not at all Thoughts that you would be b jesenia off or of hurting yourself in some way: Not at all Total Score: 0 SDOH Questions SDOH Questions In the past year have you been worried about losing housing?: No In the past year have you or any family members you live with been unable to get any of the following when it was really needed? Check all that apply:: None Fall Risk History Have you had any falls with injury in the past year?: No Have you had two or more falls in the year?: No Communication Needs Communication Needs Does the patient have a hearing impairment: No Does the patient have a vision impairmen t?: Yes ?If yes, what is the vision impairment?: Glasses Does the patient have a cognition impair ment?: No
--- OUTSIDE RECORDS SUMMARY | 2024-04-11 18:59 | XMS_ITS | Patient Health Record ---
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 Name Role Phone Jose Greer Primary Care Provider [phone] ALLERGIES No Known Allergies RESULTS Component Value Reference Range Notes Complete Blood Count Auto Di ff Reviewed date:08/02/2023 11:00:13 AM Interpretation: Performing Lab:[facility], [address] [place] [phone] Notes/Report: White Blood Count 5.9 4.8-10.8 X10*3/uL Red Blood Count 4.59 4.60-5.80 X10*6/uL Hemoglobin 14.3 14.0-18.0 g/dl Hematocrit 41.8 42.0-52.0 % Mean Corpuscular Volume 91.1 80.0-98.0 fL Mean Corpuscular Hemoglobin 31.2 27.0-33.0 pg Mean Corpuscular HGB Conc 34.2 31.0-36.0 g/dl Red Cell Distribution Width 12.6 11.0-16.0 % Platelet Count 230 160-400 X10*3/uL Mean Platelet Volume 9.4 9.4-12.4 fL Neutrophils Percent Auto 57.1 45-73 % Imm Gran Pct Auto 0.0 0.0-0.4 % Lymphocytes Percent Auto 28.0 20-40 % Monocytes Percent Auto 12.6 2-11 % Eosinophils Percent Auto 2.1 0-4 % Basophils Percent Auto 0.2 0-2 % NRBC Pct Auto 0.0 0.0-0.2 /100WBC Neutrophils Absolute Auto 3.3 2.0-8.3 x10*3/u L Imm Gran Abs Auto 0.00 0.00-0.03 X10*3/uL Lymphocytes Absolute Auto 1.6 1.2-4.9 X10*3/u L Monocytes Absolute Auto 0.7 0.1-1.2 X10*3/uL Eosinophils Absolute Auto 0.1 0.0-0.4 X10*3/u L Basophils Absolute Auto 0.0 0.0-0.2 X10*3/uL NRBC Abs Auto 0.000 0.0-0.012 X10*3/uL Prothrombin Time INR Reviewed date:08/01/2023 08:45:11 AM Interpretation: Performing Lab:[address] [phone] Notes/Report: Prothrombin Time 10.9 11.1-13.3 SEC INTERNATIONAL NORM RATIO 0.9 0.9-1.1 INTERNATIONAL NORMALIZED RATIO (INR) REFERENCE RANGES Reference Range For patients not on anticoagulant therapy: 0.9 - 1.1 INR ranges for oral anticoagulant therapy: For prevention and treatment of venous thrombosis and pulmonary embolism: 2.0 - 3.0 For acute myocardial infarction with aspirin therapy: 2.0 - 3.0 For acute myocardial infarction without aspirin therapy: 3.0 - 4.0 For patients with mechanical prosthetic heart valves: 2.5 - 3.5 Partial Thromboplastin Time Reviewed date:08/01/2023 08:42:49 AM Interpretation: Performing Lab:[address] [phone] Notes/Report: Partial Thromboplastin Time 27.9 26.0-36.8 SEC For information regarding the monitoring of direct thrombin inhibitors, please refer to Pharmacy. Liver Panel Reviewed date:08/01/2023 08:42:59 AM Interpretation: Performing Lab:[facility], [address] [place] [phone] Notes/Report: Bilirubin Total 0.3 0.0-1.0 mg/dL Bilirubin Direct 0.1 0.0-0.5 mg/dL Aspartate Amino Transferase 17 5-37 U/L Alanine Aminotransferase 18 0-40 U/L Total Protein 7.5 6.5-8.0 g/dL Albumin Level 4.1 3.5-5.0 g/dL Alkaline Phosphatase 64 39-117 U/L Basic Metabolic Panel Reviewed date:08/01/2023 12:44:46 PM Interpretation: Performing Lab:[facility], [address] [place] [phone] Notes/Report: Sodium 139 135-145 mmol/L Potassium 3.4 3.3-5.1 mmol/L Chloride 106 96-108 mmol/L Carbon Dioxide 28 22-29 mmol/L Anion Gap 8 12-20 Blood Urea Nitrogen 20 9-16 mg/dL Creatinine 1.02 0.5-1.4 mg/dL Creatinine Clr Calc Pharmacy 70.7 eGFR (calculated from the MDRD study equation) and eCrCl (calculated from the Cockcroft-Gault equation) are based on different parameters and may not yield comparable results. If eCrCl result is absurd, please check patient's height/weight. Estimated Glomerular Filt Rate > 60 NOTE: For -Citizen Of [place] individuals, multiply the result by 1.210. Chronic Kidney Disease: Estimated GFR < 60 mL/min/1.73m2 Severe Kidney Disease: Estimated GFR < 15 mL/min/1.73m2 Glucose Random 150 60-115 mg/dL Calcium 8.9 8.4-10.2 mg/dL Creatine Kinase Total Reviewed date:08/01/2023 08:46:29 AM Interpretation: Performing Lab:[facility], [address] [place] [phone] Notes/Report: Creatine Kinase Total 84 38-174 U/L Troponin-I High Sensitivity Reviewed date:08/01/2023 08:42:41 AM Interpretation: Performing Lab:[facility], [address] [place] [phone] Notes/Report: Troponin-I High Sensitivity < 2.7 <3.5-35.0 ng/ L [place] high sensitivity Troponin-I results should be used in conjunction with other diagnostic information such as ECG, clinical observations and information, and patient symptoms to aid in the diagnosis of MS. INR WHOLE BLOOD POC Reviewed date:08/01/2023 08:42:21 AM Interpretation: Performing Lab:[facility], [address] [place] [phone] Notes/Report: PT, INR - Anti [facility]ag Clinic 1.0 0.9-1.1 METER #: [id number] INTERNATIONAL NORMALIZED RATIO (INR) REFERENCE RANGES Reference Range For patients not on anticoagulant therapy: 0.9 - 1.1 INR ranges for oral anticoagulant therapy: For prevention and treatment of venous thrombosis and pulmonary embolism: 2.0 - 3.0 For acute myocardial infarction with aspirin therapy: 2.0 - 3.0 For acute myocardial infarction without aspirin therapy: 3.0 - 4.0 For patients with mechanical prosthetic heart valves: 2.5 - 3.5 Prothrombin Time Whole Bld P OC Reviewed date:08/01/2023 08:51:33 AM Interpretation: Performing Lab:[facility], [address] [place] [phone] Notes/Report: Prothrombin Time Whole Bld POC 12.3 11.1-13.5 sec Glucose, Whole Blood Reviewed date:08/01/2023 08:42:29 AM Interpretation: Performing Lab:[facility], [address] [place] [phone] Notes/Report: Glucose, Whole Blood 143 60-115 mg/dL METER # : [id number] CT head for stroke Reviewed date:08/01/2023 08:42:10 AM Interpretation: Performing Lab: Notes/Report: [address] [address] [address] Scan Report Signed Patient: Mark Rayo MR#: [id number] : 1950 Acct:[id number] Age/Sex: 73 / M ADM Date: 07/30/23 Loc: HO.ED Attending Dr: Ordering Physician: Ada Ruiz CNP Date of Service: 07/30/23 Procedure(s): CT head for stroke Accession Number(s): [id number] cc: Ada Ruiz CNP; Jose Greer MD EXAMINATION: CT head for stroke CLINICAL INFORMATION: Reason for Exam R facial droop COMPARISON: None. TECHNIQUE: Contiguous axial imaging was performed from the skull base to vertex without intravenous contrast. Sagittal and coronal reformatted images were obtained. This CT examination was performed using dose optimization techniques as appropriate, variously including the following: * Automated exposure control * Adjustment of mA and/or kV according to patient size (this includes techniques or standardized protocols for targeted exams where dose is matched to indication/reason for exam; i.e. extremities or head) Use of iterative reconstruction technique DLP: 693.23 mGy-cm FINDINGS: The ventricles and sulci are normal in size and configuration without significant volume loss or hydrocephalus. There is no abnormal attenuation within the brain parenchyma. No territorial loss of garcia-white differentiation. No acute intracranial hemorrhage or extra-axial fluid collection. No mass lesion, significant mass effect, or herniation pattern. No hyperdense vessel sign. Calcifications along the bilateral carotid siphons. The orbits are grossly normal. Rightward nasal septal deviation with rightward bony spur impinging on the right middle and inferior nasal turbinates. Mild paranasal sinus mucosal thickening with retention cyst in the right alveolar recess. No mastoid effusion. Osseous structures are intact. CT/CT head for stroke IMPRESSION: No acute intracranial abnormality. Specifically, no CT evidence of acute intracranial hemorrhage, significant mass effect, hydrocephalus, or large territorial infarction. Dictated By: Echo Crawford Signed By: <Electronically signed by Echo Crawford in OV> 07/30/231858 DD/ 49 TD/TT: Transportation Driver: Urine Culture Reviewed date:08/24/2023 12:45:06 PM Interpretation: Performing Lab:[facility], [address] [place] [phone] Notes/Report: Urine Culture No growth. Complete Blood Count Auto Di ff Reviewed date:08/23/2023 12:44:31 PM Interpretation: Performing Lab:[facility], [address] [place] [phone] Notes/Report: White Blood Count 4.7 4.8-10.8 X10*3/uL Red Blood Count 4.80 4.60-5.80 X10*6/uL Hemoglobin 14.7 14.0-18.0 g/dl Hematocrit 45.6 42.0-52.0 % Mean Corpuscular Volume 95.0 80.0-98.0 fL Mean Corpuscular Hemoglobin 30.6 27.0-33.0 pg Mean Corpuscular HGB Conc 32.2 31.0-36.0 g/dl Red Cell Distribution Width 13.2 11.0-16.0 % Platelet Count 265 160-400 X10*3/uL Mean Platelet Volume 10.2 9.4-12.4 fL Neutrophils Percent Auto 61.4 45-73 % Imm Gran Pct Auto 0.0 0.0-0.4 % Lymphocytes Percent Auto 24.8 20-40 % Monocytes Percent Auto 11.7 2-11 % Eosinophils Percent Auto 1.7 0-4 % Basophils Percent Auto 0.4 0-2 % NRBC Pct Auto 0.0 0.0-0.2 /100WBC Neutrophils Absolute Auto 2.9 2.0-8.3 x10*3/u L Imm Gran Abs Auto 0.00 0.00-0.03 X10*3/uL Lymphocytes Absolute Auto 1.2 1.2-4.9 X10*3/u L Monocytes Absolute Auto 0.6 0.1-1.2 X10*3/uL Eosinophils Absolute Auto 0.1 0.0-0.4 X10*3/u L Basophils Absolute Auto 0.0 0.0-0.2 X10*3/uL NRBC Abs Auto 0.000 0.0-0.012 X10*3/uL Comprehensive [place]. Panel Fa st Reviewed date:08/23/2023 01:24:32 PM Interpretation: Performing Lab:[facility], [address] [place] [phone] Notes/Report: Sodium 142 135-145 mmol/L Potassium 4.1 3.3-5.1 mmol/L Chloride 107 96-108 mmol/L Carbon Dioxide 29 22-29 mmol/L Anion Gap 10 12-20 Blood Urea Nitrogen 21 9-16 mg/dL Creatinine 1.05 0.5-1.4 mg/dL Estimated Glomerular Filt Rate > 60 NOTE: For -Citizen Of [place] individuals, multiply the result by 1.210. Chronic Kidney Disease: Estimated GFR < 60 mL/min/1.73m2 Severe Kidney Disease: Estimated GFR < 15 mL/min/1.73m2 Glucose Fasting 94 60-99 mg/dL Calcium 9.5 8.4-10.2 mg/dL Bilirubin Total 0.6 0.0-1.0 mg/dL Aspartate Amino Transferase 19 5-37 U/L Alanine Aminotransferase 19 0-40 U/L Total Protein 7.5 6.5-8.0 g/dL Albumin Level 4.1 3.5-5.0 g/dL Alkaline Phosphatase 49 39-117 U/L Lipid Panel Reviewed date:08/23/2023 12:46:04 PM Interpretation: Performing Lab:[address] [phone] Notes/Report: Triglycerides 79 <150 mg/dL Desirable Triglyceride: less than 150 mg/dL Borderline High Triglyceride 150-199 mg/dL High Triglyceride: 200-499 mg/dL Very High Triglyceride: greater than or equal to 5OO mg/dL Cholesterol 188 <200 mg/dL Desirable Cholesterol: less than 200 mg/dL Borderline High Cholesterol: 200-239 mg/dL High Cholesterol: greater than 239 mg/dL LDL Cholesterol Calculated 128 <100 mg/dL Desirable LDL: less than 100 mg/dL Near Optimal/Above Optimal LDL: 110-129 mg/dL Borderline High LDL: 130-159 mg/dL High LDL: 160-189 mg/dL Very High LDL: greater than or equal to 190 mg/dL HDL Cholesterol 45 >40 mg/dL Desirable HDL: greater than 40 mg/dL Note: This HDL assay may give artificially low results in patients with liver disease. PSA,Total (Free>4and<10) Reviewed date:08/23/2023 12:49:03 PM Interpretation: Performing Lab:[address] [address] Notes/Report: PSA,Total (Free>4and<10) 3.19 0.00-4.00 ng/mL A Free PSA was not performed: The percentage of Free PSA can be used to enhance the differentiation of prostate cancer from benign prostatic disease in subjects whose PSA levels are between 4.0 and 10.0 ng/mL. For subjects whose PSA levels are below 4.0 or above 10.0 ng/mL, the risk of prostate cancer is determined on the basis of the PSA alone. Therefore the % Free PSA is recommended only for those subjects whose PSA levels are between 4.0 and 10.0 ng/mL. PSA methodology: [place] Alinity i Chemiluminescent Microparticle Immunoassay (CMIA) Microalbumin, Random Reviewed date:08/23/2023 12:38:28 PM Interpretation: Performing Lab:[address] [address] Notes/Report: Creatinine Urine 242.92 Microalbumin Urine 9.0 Microalbum/Creatinine Ratio Ur 3.7 <30 ug/mg cr Albumin/Creatinine Ratio Reference Ranges: Normal: < 30 ug/mg creatinine Microalbuminuria: 30 - 300 ug/mg creatinine Clinical Albuminuria: > 300 ug/mg creatinine Hemoglobin A1c Reviewed date:08/23/2023 12:37:27 PM Interpretation: Performing Lab:[address] [phone] Notes/Report: Hemoglobin A1c % 5.8 <6.0 % Hemoglobin A1C Reference Range Adults: 4.8 - 6.0 % Non diabetic: < 6.0 % Goal: < 7.0 % Additional Action Suggested: > 8.0 % Note: Hemoglobin A1c results are invalid for patients with abnormal amounts of HbF. Blood transfusions may impact the HbA1c concentration in the patient sample. Estimated Average Glucose 120 eAG = Estimated average glucose which is %A1C expressed as average glucose, using the formula of the I2M-Sbddtnd Average Glucose study (ADAG), Diabetes Care, Vol.31,#8, Dec. 2007 UA ClnCatch+Micro w/rflx Cul t Reviewed date:08/24/2023 12:47:12 PM Interpretation: Performing Lab:[address] [phone] Notes/Report: [id number] Urine, Clean Catch Color Urine Yellow Appearance Urine Clear PH 5.5 5.0-9.0 Glucose Urine UA Negative Negative mg/dL Urine Blood Negative Negative Specific [place] - Urine 1.025 1.005-1.025 Urine Protein Negative Neg-Trace mg/dL Urine Ketones Trace Negative mg/dL Nitrite Urine Negative Negative Leukocyte Esterase Urine Trace Negative RBC Urine 0-2 0-2 /HPF WBC Urine 6-10 0-5 /HPF Squamous Epithelial Cell Urine 0-2 0-2 /HPF Bacteria Urine None Seen None Seen Hyaline Casts Urine 0-2 0-2 /LPF Occult Blood, Stool, Guaiac Reviewed date:08/31/2023 11:12:08 AM Interpretation:Negative Performing Lab: Notes/Report: Negative Occult Blood, Stool, Guaiac Neg Pathology Reviewed date:09/13/2023 12:43:42 PM Interpretation: Performing Lab:[facility], [address] [place] [phone] Notes/Report: Blood Urea Nitrogen Reviewed date:03/02/2024 12:35:00 PM Interpretation: Performing Lab:[facility], [address] [place] [phone] Notes/Report: Blood Urea Nitrogen 16 9-16 mg/dL Creatinine Reviewed date:03/02/2024 12:30:45 PM Interpretation: Performing Lab:[facility], [address] [place] [phone] Notes/Report: Creatinine 0.98 0.5-1.4 mg/dL Estimated Glomerular Filt Rate > 60 NOTE: For -Citizen Of [place] individuals, multiply the result by 1.210. Chronic Kidney Disease: Estimated GFR < 60 mL/min/1.73m2 Severe Kidney Disease: Estimated GFR < 15 mL/min/1.73m2 PSA,Total (Free>4and<10) Reviewed date:03/02/2024 12:38:14 PM Interpretation: Performing Lab:[facility], [address] [place] [phone] Notes/Report: PSA,Total (Free>4and<10) 2.94 0.00-4.00 ng/mL A Free PSA was not performed: The percentage of Free PSA can be used to enhance the differentiation of prostate cancer from benign prostatic disease in subjects whose PSA levels are between 4.0 and 10.0 ng/mL. For subjects whose PSA levels are below 4.0 or above 10.0 ng/mL, the risk of prostate cancer is determined on the basis of the PSA alone. Therefore the % Free PSA is recommended only for those subjects whose PSA levels are between 4.0 and 10.0 ng/mL. PSA methodology: [place] Alinity i Chemiluminescent Microparticle Immunoassay (CMIA) humerus LT wo/w con Reviewed date:03/14/2024 12:47:55 PM Interpretation: Performing Lab: Notes/Report: [place] [address] Magnetic Resonance Report Signed Patient: Mark Rayo MR#: [id number] : 1950 Acct:[id number] Age/Sex: 73 / M ADM Date: 03/14/24 Loc: HO.MRI Attending Dr: Arnie Mccormick MD Ordering Physician: Arnie Mccormick MD Date of Service: 03/14/24 Procedure(s): MR dove LT wo/w con Accession Number(s): [id number] cc: Jose Greer MD; Arnie Mccormick MD EXAMINATION: MR HUMERUS WITHOUT AND WITH CONTRAST, LEFT CLINICAL INFORMATION: Palpable lump in the region of the left triceps. No recent injury. COMPARISON: None available. TECHNIQUE: MRI of the left humerus was performed before and after the intravenous administration of 9 mL of Gadavist on a high-field scanner. FINDINGS: BONE: No marrow edema or evidence of acute osseous injury. No fracture or dislocation. No concerning lytic or blastic osseous lesion. No postcontrast marrow enhancement. MUSCLES/TENDONS: Along the posterior aspect of the humerus within the undersurface of the triceps muscle belly, there is an encapsulated, fat signal lesion measuring approximately 2.4 x 3.7 x 6.3 cm, consistent with an intramuscular lipoma. No soft tissue component or postcontrast enhancement to suggest a more aggressive lesion. The remaining visualized muscles and tendons are otherwise intact. No edema or enhancement to suggest acute injury. SOFT TISSUES: No additional soft tissue mass or fluid collection. Partially visualized, simple-appearing left renal cyst. Findings are not clinically significant and no dedicated followup imaging is recommended. MR/MR humerus LT wo/w con IMPRESSION: 1. 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 No soft tissue component or postcontrast enhancement to suggest a more aggressive lesion. 2. No acute osseous abnormality. Electronically signed by: Joe Shrestha MD 03/14/2024 12:33 PM [facility] Dictated By: Joe Shrestha MD Signed By: <Electronically signed by Joe Shrestha MD in OV> 03/14/24 1233 DD/ 1124 TD/TT: 03/14/24 1154 Transportation Driver: SR REASON FOR REFERRAL No Information MEDICATIONS Medication SIG (Take, Route, Frequency, Duration) Notes Start Date End Date Status Soma 250 MG 1 tablet as needed Orally PRN Not-Taking Canasa 1000 MG 1 suppository at bed time Rectal Once a day for 30 day(s) Active buPROPion HCl ER (Smoking Det) 150 MG 1 tablet Orally once a day Active Balsalazide Disodium 750 MG 3 capsules Orally BID for 30 day(s) Active Albuterol Sulfate HFA 108 (90 Base) MCG/ACT 2 puffs as needed Inhalation every 4 hrs Active Diclofenac 35 MG 1 capsule as needed Orally Three times a day Not-Best ing Ocuvite Adult 50+ Orally Ac tive IMMUNIZATIONS Vaccine Route Administration Date Status Comme nts Flu Vaccine IM Intramuscular 02/02/2011 Administered Flu Vaccine IM Intramuscular 03/07/2012 Administered Flu Vaccine Unknown 02/01/2013 Administered Flu Vaccine Unknown 03/06/2014 Administered [facility] PPSV23 (Pnemovax) IM Intramuscular 05/18/2014 Administered TDaP IM Intramuscular 06/05/2014 Administered Flu Vaccine IM Intramuscular 02/21/2015 Administered pt re cieved the high [facility] in [place]. Flu Vaccine IM Intramuscular 02/20/2016 Administered [facility] Fluarix Quadrivalent Unknown 02/10/2016 Administered [facility] Prevnar 13 IM Intramuscular 06/25/2016 Administered Covid Vaccine Unknown 06/12/2020 Administered Moderna Covid Vaccine Unknown 07/10/2020 Administered Moderna Influenza High Dose IM Intramuscular 02/17/2021 Administer ed SARS-COV-2 Moderna Unknown 08/04/2021 Administered PPSV23 (Pnemovax) IM Intramuscular 08/22/2021 Administered Influenza High Dose Unknown 01/16/2022 Administered [facility] SOCIAL HISTORY Tobacco Use: Social History Observation [...] W/U Status Risk SNOMED Code Notes Problem Erectile dysfunction (N52.9) Active confirmed Erectile dysfunction (525000817) Problem Essential tremor (G25.0) Active confirmed 683672472 Problem Mild intermittent asthma without complication (J45.20) Active confirmed 554232437 Problem Prediabetes (R73.09) Active confirmed 9 440291 Problem Ulcerative (chronic) ileocolitis, 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 30508429 Problem Degeneration of cervical intervertebral disc (M50.30) Active confirmed 25920775 Problem Pure hypercholesterolemia (E78.00) Active confirmed 703424630 Problem Increased prostate specific antigen (PSA) velocity (R97.20) Active confirmed 407760051 VITAL SIGNS Blood pressure diastolic 60 mm Hg 03/09/2024 jessica ght is up 5 pounds since 08-31-23 Height 71 in 03/09/2024 weight is up 5 pounds since 08-31-23 Blood pressure systolic 132 mm Hg 03/09/2024 weig ht is up 5 pounds since 08-31-23 Weight 205 lbs 03/09/2024 weight is up 5 pounds since 08-31-23 BMI 28.59 kg/m2 03/09/2024 weight is up 5 pounds since 08-31-23 PROCEDURES Procedure Date Ordered Date Performed Result Body Sit e Colonoscopy, Screening 09/10/2023 09/10/2023 repeat 3y Encounters Encounter Location Date Provider Diagnosis Jose Greer MD [address] [place] [address] [place] [id number] 08/31/2023 Jose Greer Rising PSA level R97 .20 ; Annual physical exam Z00.00 ; Elevated BUN R79.9 ; Essential tremor G25.0 ; 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 ; Prediabetes R73.09 ; Pure hypercholesterolemia E78.00 ; Colon cancer screening Z12.11 and Depression screening Z13.31 Jose Greer MD [address] [place] [address] Drive [address] [place] [id number] 08/23/2023 Jose Greer Blood tests for rout ine general physical examination Z00.00 ; Prediabetes R73.09 and Pure hypercholesterolemia E78.00 Jose Greer MD [address] [place] [address] Drive [address] [place] [id number] 03/02/2024 Jose Greer Erectile dysfunction N52.9 ; Elevated BUN R79.9 and Rising PSA level R97.20 Jose Greer MD [address] [place] [address] [address] [place] [id number] 03/09/2024 Jose Greer Elevated BUN R79.9 ; Rising PSA level R97.20 and Mass of left upper extremity R22.32 oJse Greer MD [address] [place] [address] Drive [address] [place] [id number] 08/02/2023 Jose Greer ASSESSMENTS Encounter Date Diagnosis Assessment Notes Treatment Notes Treatment Clinical Notes 08/31/2023 Annual physical exam (ICD-10 - Z00.00) labs reviewed and discussed with patient 08/31/2023 Rising PSA level (IC D-10 - R97.20) will continue to monitor,labs pending 08/23/2023 Prediabetes (ICD-10 - R73.09) 08/23/[address] ine general physical examination (ICD-10 - Z00.00) 03/02/2024 Erectile dysfunction (ICD-10 - N52.9) 03/02/2024 Elevated BUN (ICD-10 - R79.9) 03/09/2024 Elevated BUN (ICD-10 - R79.9) has returned to normal, will coontinue to monitor 03/09/2024 Rising PSA level (IC D-10 - R97.20) has dropped back to acceptible, will continue to monitor 08/31/2023 Elevated BUN (ICD-10 - R79.9) labs pending 08/23/2023 Pure hypercholestero lemia (ICD-10 - E78.00) 03/02/2024 Rising PSA level (IC D-10 - R97.20) 03/09/2024 Mass of left upper extremity (ICD-10 - R22.32) going to get mri and follow up with dr mccormick 08/31/2023 Essential tremor (IC D-10 - G25.0) [...] - Z13.31) negative screen PLAN OF TREATMENT Pending Test Test Name Order Date Electrocardiogram (EKG) 07/23/2017 Electrocardiogram (EKG) 08/04/2018 CBC (INCLUDES DIFF/PLT) 02/02/2011 XR CHEST 2 VIEW PA & LAT 04/13/2022 Next Appt Details Provider Name:Jose Coates ier, 08/29/2024 07:30:00 AM, [address] [place] [address], [address], [phone], Provider Name:Jose Coates ier, 09/05/2024 10:30:00 AM, [address] [place] [address], [place] [address], [place], [place], [phone], Insurance Providers Payer Name Payer Address Payer Phone Subscriber Number Group Number Insured Name Patient Relationship to Insured Coverage Start Date Coverage End Date [employer] [address] [place], [place] [address] [phone] [id number] Mark Rayo Self - patient is the insured MEDICAL (GENERAL) HISTORY Medical History History ICD Code colonoscopy 10/2006 due in 15; colonoscopy done 06/11/[address] Marcelino (repeat 5 yrs)09/10/23 colonoscopy repeat 3y 09/02/20 Colonoscopy completed, due 3 yrs 2024
--- OUTSIDE RECORDS SUMMARY | 2024-04-11 18:59 | XMS_ITS ---
Author Organization Jose Greer MD Address [address] [place] [phone] Care Team Providers Care Director Educational Radio Name Role Phone Jose Greer Primary Care Provider RESULTS Component Value Reference Range Notes Blood Urea Nitrogen Reviewed date:03/02/2024 12:35:00 PM Interpretation: Performing Lab:[facility], [address] [place] [phone] Notes/Report: Blood Urea Nitrogen 16 9-16 mg/dL Creatinine Reviewed date:03/02/2024 12:30:45 PM Interpretation: Performing Lab:[address] [phone] Notes/Report: Creatinine 0.98 0.5-1.4 mg/dL Estimated Glomerular Filt Rate > 60 NOTE: For -[place] individuals, multiply the result by 1.210. Chronic Kidney Disease: Estimated GFR < 60 mL/min/1.73m2 Severe Kidney Disease: Estimated GFR < 15 mL/min/1.73m2 PSA,Total (Free>4and<10) Reviewed date:03/02/2024 12:38:14 PM Interpretation: Performing Lab:[facility], [address] [place] [phone] Notes/Report: PSA,Total (Free>4and<10) 2.94 0.00-4.00 ng/mL A [...] between 4.0 and 10.0 ng/mL. PSA methodology: [employer] i Chemiluminescent Microparticle Immunoassay (CMIA) REASON FOR VISIT PSA, bun and creatine Encounters Encounter Location Date Provider Diagnosis Jose Greer MD [address] [place] [phone] 03/02/2024 Jose Grere Erectile dysfunction N52.9 ; Elevated BUN R79.9 and Rising PSA level R97.20 ASSESSMENTS Encounter Date Diagnosis Assessment Notes Treatment Notes Treatment Clinical Notes 03/02/2024 Erectile dysfunction (ICD-10 - N52.9) 03/02/2024 Elevated BUN (ICD-10 - R79.9) 03/02/2024 Rising PSA level (ICD-10 - R97.20) PLAN OF TREATMENT Next Appt Details Provider Name:Jose cowan, 08/29/2024 07:30:00 AM, [address] [place] [address], [address], [phone], Provider Name:Jose cowan, 09/05/2024 10:30:00 AM, [address] [place] [address], [address], [phone],
--- OUTSIDE RECORDS SUMMARY | 2024-04-11 18:59 | XMS_ITS ---
Author Organization Jose Greer MD Address [address] [place] [phone] Care Team Providers Care Roofer Apprentice Name Role Phone Jose Greer Primary Care Provider ALLERGIES No Known Allergies REASON FOR VISIT 6 month PSA MEDICATIONS Medication SIG (Take, Route, Frequency, Duration) [...] as needed Inhalation every 4 hrs Active Ocuvite Adult 50+ Orally Ac tive Soma 250 MG 1 tablet as needed Orally PRN Not-Taking Diclofenac 35 MG 1 capsule as needed Orally Three times a day Not-Best ing VITAL SIGNS BMI 28.59 kg/m2 03/09/2024 Blood pressure systolic 132 mm Hg 03/09/20 24 Blood pressure diastolic 60 mm Hg 024 Height 71 in 03/09/2024 Weight 205 lbs 03/09/2024 weight is up 5 pounds since 08-31-23 Encounters Encounter Location Date Provider Diagnosis Jose Greer MD [address] [place] [address] [place] [phone] 03/09/2024 Jose Greer Elevated BUN R79.9 ; Rising PSA level R97.20 and Mass of left upper extremity R22.32 ASSESSMENTS Encounter Date Diagnosis Assessment Notes Treatment Notes Treatment Clinical Notes 03/09/2024 Elevated BUN (ICD-10 - R79.9) has returned to normal, will coontinue to monitor 03/09/2024 Rising PSA level (ICD-10 - R97.20) has dropped back to acceptible, will continue to monitor 03/09/2024 Mass of left upper extremity (ICD-10 - R22.32) going to get mri and follow up with dr jerez PLAN OF TREATMENT Treatment Notes Assessment Notes Elevated BUN has returned to norm al, will coontinue to monitor Rising PSA level has dropped back to acceptible, will continue to monitor Mass of left upper extremity going to ge t mri and follow up with dr jerez Next Appt Details Provider Name:Jose cowan, 08/29/2024 07:30:00 AM, [address] [place] [address], [address] [place] [address], [phone], Provider Name:Jose cowan, 09/05/2024 10:30:00 AM, [address] [place] [address], [place] [address], [place], [place], [phone], Progress Notes * Examination Category Sub-Category Detail Notes General Examination GENERAL APPEARANCE: alert, w ell hydrated, in no distress HEART: regular rate and rhy thm , no murmurs, rubs, gallops LUNGS: no wheezes, rales, r honchi , good air movement , clear to auscultation bilaterally , clear to auscultation bilaterally SKIN: good turgor EXTREMITIES: abnormal with a six inch mass posterior upper arm
--- OUTSIDE RECORDS SUMMARY | 2024-04-11 18:59 | XMS_ITS ---
Author Organization [facility] Address [address] [place] [address] Care Team Providers Care Drug Safety Data Management Specialist Name Role Phone Juan M Hernandez MD Primary Care Provider Un available Dae Marcelino Unavailable [phone] DONNELL Gonzalez Kasey Unavailable Unavailable REASON FOR VISIT Addendum Encounters Encounter Location Date Provider Diagnosis [facility] [address] [place] [address] 10/08/2023 Dae Marcelino PLAN OF TREATMENT No Information
--- OUTSIDE RECORDS SUMMARY | 2024-04-11 19:00 | XMS_ITS ---
Author Organization [facility] Address [address] [place] [address] Care Team Providers Care Mixed Livestock Farm Worker Name Role Phone Juan M Hernandez MD Primary Care Provider Un available Dae Marcelino Unavailable [phone] DONNELL Gonzalez Kasey Unavailable Unavailable REASON FOR VISIT screening,hx polyps,ulcerative rectosigmoiditis PROBLEMS Problem Type ICD Code Onset Dates Problem Status W/U Status Risk SNOMED Code Notes Problem Personal history of colonic polyps (Z86.010) Active confirmed History of polyp of colon (situation) (055200771) Problem Diverticulosis of large intestine without perforation or abscess without bleeding (K57.30) Active confirmed Diverticul ar disease of colon (662181048) Encounters Encounter Location Date Provider Diagnosis [facility] [place] [address] [place] [phone] 09/10/2023 Dae Marcelino 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
--- OUTSIDE RECORDS SUMMARY | 2024-04-11 19:00 | XMS_ITS ---
Author Organization [facility] Address [address] [place] [phone] Care Team Providers Care Cage Supervisor Name Role Phone Juan M Hernandez MD Primary Care Provider Un available Dae Marcelino Unavailable [phone] DONNELL Gonzalez Kasey Unavailable Unavailable REASON FOR VISIT refill scripts MEDICATIONS Medication SIG (Take, Route, Frequency, Duration) Notes Start Date End Date Status Mesalamine 1000 MG 1 suppository at bed time Rectal Every night at bedtime for 30 days 06/02/2022 Active Balsalazide Disodium 750 MG 3 capsules Orally Twice a day for 30 days Active Encounters Encounter Location Date Provider Diagnosis [facility] [address] [place] [phone] 10/05/2023 Dae Marcelino PLAN OF TREATMENT Medication Medication Name Sig Start Date Stop Date Notes Mesalamine 1000 MG 1 suppository at bed time Rectal Every night at bedtime for 30 days 06/02/2022 Balsalazide Disodium 750 MG 3 capsules O rally Twice a day for 30 days
--- OUTSIDE RECORDS SUMMARY | 2024-04-11 19:00 | XMS_ITS | Patient Health Record ---
Author Organization [facility] Address [address] [facility] [address] [facility] [address] [place] [phone] Care Team Providers Care Pathology Lab Technician Name Role Phone Juan M Hernandez MD Primary Care Provider Un available Dae Marcelino Unavailable [phone] DONNELL Gonzalez Kasey Unavailable Unavailable ALLERGIES No Known Allergies RESULTS Component Value Reference Range Notes Pathology (Not yet reviewed by provider) Interpretation: Performing Lab:[facility], [address] [place] [phone] Notes/Report: REASON FOR REFERRAL Referring Provider First Name Juan M Referring Provider Last Name aDvid Referring Provider Speciality Internal M edicine Referred Organization [facility] Referred Provider Dae Marcelino Referred Address [address] [place] [address],[address],[place], [place],[address], Referred Provider Specialty Gastroentero logy Referral Priority Routine MEDICATIONS Medication SIG (Take, Route, Frequency, Duration) Notes Start Date End Date Status Ocuvite Unknown Cyclobenzaprine HCl 10 MG 1 tablet at bedtime as needed Orally Once a day for 30 day(s) Active Tylenol PRN Unknown LORazepam Unknown Phenylephrine HCl 0.25 % Suppository Rec bunny PRN Unknown Canasa 1000 MG 1 suppository at bedtime Rectal At bedtime for 30 day(s) 05/31/2022 Unknown Soma Neck pain--prn Unkno wn Balsalazide Disodium 750 MG 3 Orally Twice a day for 30 day(s) 06/02/2022 Unknown Advil PRN Unknown Balsalazide Disodium 750 MG 3 Orally Twice a day for 30 day(s) 05/31/2022 Unknown Albuterol Sulfate HFA Unknown buPROPion HCl Unknow n Mesalamine 1000 MG 1 suppository at bedtime Rectal Every night at bedtime for 30 days 06/02/2022 Active Canasa 1000 MG 1 suppository at bedtime Rectal QHS for 30 day(s) uses rarely 06/14/2012 Unknown Balsalazide Disodium 750 MG 3 capsules Orally Twice a day for 30 days Active Flonase Unknown IMMUNIZATIONS Vaccine Route Administration Date Status Comme nts Influenza Unknown 02/14/2020 Administered Influenza Unknown 02/17/2022 Administered SOCIAL HISTORY Sex Assigned At : Social History Observation Description Sex Assigned At Unknown PROBLEMS Problem Type ICD Code Onset Dates Problem Status W/U Status Risk SNOMED Code Notes Problem Colon cancer screening (Z12.11) Active confirmed 746424069 Problem Encounter for screening for malignant neoplasm of colon (Z12.11) Active confirmed 210050782 Problem History of adenomatous polyp of colon (Z86.010) Active confirmed 351436904 Problem Personal history of colonic polyps (Z86.010) Active confirmed History of polyp of colon (situation) (538037201) Problem Diverticulosis of large intestine without perforation or abscess without bleeding (K57.30) Active confirmed Diverticul ar disease of colon (357292010) Problem Encounter for screening for malignant neoplasm of rectum (Z12.12) Active confirmed Screening for malignant neoplasm of rectum (273874166) Problem History of colon polyps (Z86.010) Active confirmed 682117560 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 and History of adenomatous polyp of colon Z86.010 [facility] [address] [place] [phone] 06/11/2023 Dae Marcelino [facility] [address] [place] [address] 07/14/2023 Dae Ryland [facility] [address] [place] [phone] 07/27/2023 Dae Marcelino [facility] [address] [place] [phone] 07/27/2023 Dae Marcelino [facility] [address] [place] [phone] 08/30/2023 Dae Marcelino [facility] [address] [place] [phone] 10/05/2023 Dae Marcelino [facility] [address] [place] [phone] 10/08/2023 Dae Marcelino ASSESSMENTS Encounter Date Diagnosis Assessment Notes Treatment Notes Treatment Clinical Notes 09/10/2023 Personal history of colonic polyps (ICD-10 - Z86.010) 09/10/2023 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) 05/11/2023 Colon cancer screeni ng (ICD-10 - Z12.11) 05/11/2023 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) 09/10/2023 Diverticulosis of la rge intestine without perforation or abscess without bleeding (ICD-10 - K57.30) 05/11/2023 History of adenomato us polyp of colon (ICD-10 - Z86.010) 09/10/2023 Internal hemorrhoids (ICD-10 - K64.8) PLAN OF TREATMENT Pending Test Test Name Order Date Pathology 09/10/2023 Future Test Test Name Order Date COLONOSCOPY 03/21/2015 COLONOSCOPY 08/14/2020 COLONOSCOPY 05/15/2023 Insurance Providers Payer Name Payer Address Payer Phone Subscriber Number Group Number Insured Name Patient Relationship to Insured Coverage Start Date Coverage End Date [facility] [employer] [address] [place] [address] [id number] NED BLISS Self - patient is the insured MEDICAL (GENERAL) HISTORY Medical History History ICD Code Ulcerative colitis-dx'd in 10/2006-[facility] ed the rectum and sigmoid colon Denies DC,DM,CVA,Lung disease,renal dise ase Herniated cervical spine disc Anxiety Seasonal allergies Chronic bronchitis Hiatal hernia Colonoscopy in 06/2015 was no rmal--no active colitis, no dysplasia on the biopsies, no polyps Colonoscopy in August of 2020 w as negative for any active colitis and biopsies were negative for dysplasia. He did have a tubulovillous adenoma and tubular adenoma removed at that time. Surgical History Surgery Date(Month/Year) Umbilical hernia surgery Inguinal hernia on right
--- NOTE | 2024-04-20 08:58 | P.HPSUR_ITS ---
Pre-Procedural Eval Section A - 24 Hr Update-Section A only Date of Service: 04/21/24 The patient is an INPATIENT: No Changes since office visit: No Cold of Flu in the past 2 weeks, No New Medical Problems, No Changes in Medication and No Patient answered all questions Section B - Complete if H&P > 30 days Chief Complaint: Benign lipomatous neoplasm, Allergies: Allergies Allergy/AdvReac Type Severity Reaction Status Date / Time Seasonal Allergies Allergy Intermediate Itchy Eyes Verified 03/21/24 09:53 Review of Systems Sugical H&P ROS: Negative: Constitution, Cardiovascular, Respiratory, Neurological, Psychiatric, Hem-Onc, Allergic/Immunologic, Gastrointestinal, Genitourinary, Musculoskeletal, Integumentary, Endocrine and E yes/Ears/Nose/Throat Exam Surgical H&P Exam: Normal: HEENT, Normal: Heart, Normal: Lungs, Normal: Extremities, Normal: Abdomen, Normal: Skin and Normal: Neurological Plan I have reviewed the history and physical and performed a pertinent physical examination on my patient. No changes have occurred unless specified. Time Spent With Patient Time: Total time managing care of this patient today ____ minutes.
--- OUTSIDE RECORDS SUMMARY | 2024-04-21 08:53 | XMS_ITS | Continuity of Care Document ---
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 It does not include entries that were removed or entered in error. Problem Status Onset Date Problem Type Date of Resolution Comments Source Allergic Rhinitis (SCT [id number]) Active Condition [facility] [...] Entered By: RONAN PALOMINO Comment: vet with [facility] ED visit for R facial weakness-slowly improving [facility] Chronic sinusitis Active Condition Se 2019 Entered By: ELIEL ALEMAN Comment: reviewed [facility] Exposure to potentially hazardous substance (SCT 979317298382115) Active Condition Aug 10 Entered By: JORDIN [...] [facility] Hyperlipidemia (SCT 72176515) Active Condition [facility] Lipoma of skin and subcutaneous tissue (excluding face) Active Condition Feb 09, 2024 Entered By: RONAN PALOMINO Comment: vet has likely lipoma overlying left biceps area- smaller in past 3 mos per vet- needs surg eval [facility] Neck pain Active Condition Aug 05 Entered By: RONAN PALOMINO Comment: non va - nEUROLOGY Neurology: Dr. Dent ( [facility] ) - RTC 03/2019 -/ workers comp injur/ [facility] prescribe [facility] [place] [facility] Posttraumatic stress disorder Active Condition Dec 19, 2021 Entered By: ELIEL ALEMAN Comment: reviewedMar 19, 2022 Entered By: ELIEL ALEMAN Comment: reviewedFe2022 Entered By: ELIEL ALEMAN Comment: reviewedOct 01, 2022 Entered By: ELIEL ALEMAN Comment: reviewed [facility] Tinnitus Active Condition [facility] Ulcerative colitis Active Condition Jan 08, 2016 Entered By: SHAGGY ALVA Comment: colonoscpoy 06/11/15 nl, repeat ep 2018 Entered By: MOISES HAMLIN Comment: NON VA - GI ( GI: Dr. Michaud ) - for collitis / and Hemorrhoid [facility] Under care of multiple providers Active Condition Jan 26, 2019 Entered By: MOISES HAMLIN Comment: NON nc - PCP - DR Norris 2018 Entered By: MOISES HAMLIN Comment: Neurology: Dr. Dent [facility] Crohn's disease Inactive Condition 01/08/2016 [facility] Diagnosis: ICD-10-CM Z46.0 Encounter for fit/adjst of spectacles and contact lenses Active Diagnosis [facility] Diagnosis: ICD-10-CM H40.013 Open angle with borderline findings, low risk, bilateral Active Diagnosis [facility] [place] [facility] Diagnosis: ICD-10-CM K08.9 Disorder of teeth and supporting structures, unspecified [facility] Diagnosis: ICD-10-CM K03.6 Deposits [accretions] on teeth Active [facility] [place] [facility] Diagnosis: ICD-10-CM 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 [facility] Diagnosis: ICD-10-CM K51.90 Ulcerative colitis, unspecified, without complications Active [facility] [place] Diagnosis: ICD-10-CM F41.9 Anxiety disorder, unspecified Active [facility] Diagnosis: ICD-10-CM F43.12 Post-traumatic stress disorder, chronic Active [facility] Diagnosis: ICD-10-CM H25.813 Combined forms of age-related cataract, bilateral Active Diagnosis [facility] Medications Combined list of outpatient medications from Department of Defense and Veterans Affairs facilities.Medications provided include 1) outpatient medications from the last 15 months, and 2) patient-reported medications. Medication Details Route Status Patient Instructions Prescription Expires Prescription Number Last Dispense Date Ordering Provider Order Date Order Qty Source ACETAMINOPH EN 500MG TAB TAKE ONE TABLET BY MOUTH NEEDED ORAL ACTIVE RIRI RAMOS [facility] ALBUTEROL 90MCG/ACTUA T (CFC-F) INHL,ORAL,8 .5GM DOSE COUNTER INHALE 2 PUFFS BY MOUTH EVERY 4 HOURS NEEDED FOR [facility] RESPIR ATORY (INHAL ATION) ACTIVE 08/04/2024 [id number] 4 DCHAVEZ CLARK 2023 1 [facility] ALBUTEROL 90MCG/ACTUA T (CFC-F) INHL,ORAL,8 .5GM DOSE COUNTER INHALE 2 PUFFS BY MOUTH EVERY 4 HOURS NEEDED FOR [facility] RESPIR ATORY (INHAL ATION) DISCONT INUED 06/19/2023 [id number] 4 HAYDEE RAMSEYCHAVEZ MITESH Dave 2023 1 [facility] ALBUTEROL 90MCG/ACTUA T (CFC-F) INHL,ORAL,8 .5GM DOSE COUNTER INHALE 2 PUFFS BY MOUTH EVERY 4 HOURS NEEDED FOR BRON[facility]OS [facility] RESPIR ATORY (INHAL ATION) DISCONT INUED 02/25/2023 [id number] 3 APPLE MAJOR 2022 1 [facility] BALSALAZIDE DISODIUM 750MG CAP TAKE THREE CAPSULES BY MOUTH TWICE DAILY ORAL ACTIVE 10/06/2024 [id number] 4 JARVIS MICHAUD 2023 180 [facility] BALSALAZIDE DISODIUM 750MG CAP TAKE THREE CAPSULES BY MOUTH TWICE DAILY FOR ULCERATI VE COLITIS ORAL DISCONT INUED 10/05/2024 [id number] 4 CHAVEZ NAYAK 2023 540 [facility] BALSALAZIDE DISODIUM 750MG CAP TAKE THREE CAPSULES BY MOUTH TWICE DAILY ORAL 06/01/2023 [id number] 3 JARVIS MICHAUD 2022 180 [facility] BUPROPION HCL 150MG 24HR TAB,SA TAKE ONE TABLET BY MOUTH EVERY MORNING *FOR MOOD ORAL ACTIVE 01/17/2025 [id number] 4 ELIEL ALEMAN 2023 30 [facility] BUPROPION HCL 150MG 24HR TAB,SA TAKE ONE TABLET BY MOUTH EVERY MORNING *FOR MOOD ORAL DISCONT INUED 04/29/2024 [id number] 4 ELIEL ALEMAN 2022 30 [facility] BUPROPION HCL 150MG 24HR TAB,SA TAKE ONE TABLET BY MOUTH EVERY MORNING *FOR MOOD ORAL DISCONT INUED 01/14/2024 [id number] 3 ELIEL ALEMAN 2022 30 [facility] CARBAMIDE PEROXIDE 6.5%/GLYCER IN SOLN,OTIC INSTILL 5 TO 10 DROPS INTO THE AFFECTED EAR(S) ONCE DAILY NEEDED FOR EAR WAX BLOCKAGE AURICU LAR (OTIC) ACTIVE 05/20/2024 [id number] 4 CHAVEZ NAYAK 2023 15 [facility] CARISOPRODO L 350MG TAB TAKE ONE TABLET BY MOUTH ONCE DAILY PRN ORAL ACTIVE RIRI RAMOS 2016 [facility] DICLOFENAC NA 75MG TAB,EC TAKE ONE TABLET BY MOUTH TWICE DAILY ORAL ACTIVE CHAVEZ NAYAK 2022 [facility] FLUTICASONE PROPIONATE 50MCG/SPRAY SOLN,NASAL, 16GM INSTILL 1 SPRAY INTO EACH NOSTRIL ONCE DAILY NASAL ACTIVE 08/04/2024 [id number] 4 CHAVEZ NAYAK 2023 3 [facility] FLUTICASONE PROPIONATE 50MCG/SPRAY SOLN,NASAL, 16GM INSTILL 1 SPRAY INTO EACH NOSTRIL ONCE DAILY NASAL DISCONT INUED (EDIT) 08/18/2023 [id number] 4 CHAVEZ NAYAK 2023 1 [facility] FLUTICASONE PROPIONATE 50MCG/SPRAY SOLN,NASAL, 16GM INSTILL 1 SPRAY INTO EACH NOSTRIL ONCE DAILY NASAL DISCONT INUED 04/26/2023 [id number] 3 APPLE MAJOR 2022 1 [facility] LORAZEPAM 0.5MG TAB TAKE ONE TABLET BY MOUTH ONCE DAILY NEEDED FOR ANXIETY. CAUTION SEDATION .. 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 NO ALCOHOL AND DON'T TAKE IF TAKING CARISOPR ODOL OR TRAMADOL . ORAL ACTIVE 07/19/2024 [id number] 4 ELIEL ALEMAN 2023 30 [facility] LORAZEPAM 0.5MG TAB TAKE ONE TABLET BY MOUTH ONCE DAILY NEEDED FOR ANXIETY. CAUTION SEDATION .. 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 NO ALCOHOL AND DON'T TAKE IF TAKING CARISOPR ODOL OR TRAMADOL . ORAL DISCONT INUED 07/16/2023 [id number] 3 ELIEL ALEMAN 2022 30 [facility] LORAZEPAM 0.5MG TAB TAKE ONE TABLET BY MOUTH ONCE DAILY NEEDED FOR ANXIETY. CAUTION SEDATION .. 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 NO ALCOHOL AND DON'T TAKE IF TAKING CARISOPR ODOL OR TRAMADOL . ORAL 10/30/2023 [id number] 4 ELIEL ALEMAN 2023 30 [facility] MESALAMINE 1000MG SUPP,RTL INSERT 1 SUPPOSIT ORY(IES) RECTALLY AT BEDTIME RECTAL ACTIVE 10/06/2024 [id number] 4 JARVIS MICHAUD 2023 30 [facility] MESALAMINE 1000MG SUPP,RTL INSERT 1 SUPPOSIT ORY(IES) RECTALLY AT BEDTIME FOR ULCERATI VE COLITIS RECTAL DISCONT INUED 05/20/2024 [id number] 4 CHAVEZ NAYAK 2023 90 [facility] MESALAMINE 1000MG SUPP,RTL INSERT 1 SUPPOSIT ORY(IES) RECTALLY AT BEDTIME FOR ULCERATI VE COLITIS RECTAL DISCONT INUED (EDIT) 01/27/2024 [id number] 3 APPLE MAJOR 2022 30 [facility] MULTIVITAMI NS W/MINERALS TAB TAKE ONE TABLET BY MOUTH QD ORAL ACTIVE RIRI RAMOS 2018 [facility] OTHER CAP/TAB TAKE PREPARAT ION H SUPPOSIT ORIES BY MOUTH NEEDED ORAL ACTIVE RIRI RAMOS 2018 [facility] PHENYLEPHRI NE HCL 0.25% SUPP,RTL INSERT 1 SUPPOSIT ORY(IES) RECTALLY ONCE DAILY NEEDED RECTAL ACTIVE 08/04/2024 [id number] 4 HAYDEE RAMSEYCHAVEZ MITESH Dave 2023 84 [facility] PHENYLEPHRI NE HCL 0.25% SUPP,RTL INSERT 1 SUPPOSIT ORY(IES) RECTALLY ONCE DAILY NEEDED FOR INFLAMMA TION OF THE RECTUM RECTAL DISCONT INUED (EDIT) 05/20/2024 [id number] 4 HAYDEE RAMSEYCHAVEZ MITESH Dave 2023 84 [facility] PHENYLEPHRI NE HCL 0.25% SUPP,RTL INSERT 1 SUPPOSIT ORY(IES) RECTALLY ONCE DAILY NEEDED FOR INFLAMMA TION OF THE RECTUM RECTAL DISCONT INUED (EDIT) 01/27/2024 [id number] 3 APPLE MAJOR 2022 84 [facility] SODIUM FLUORIDE 1.1% TOOTHPASTE BRUSH SMALL AMOUNT TO TEETH TWICE DAILY FOR TOOTH DECAY PREVENTI ON DENTAL ACTIVE 05/20/2024 [id number] 4 HAYDEE RAMSEYCHAVEZ MITESH Dave 2023 102 [facility] SODIUM FLUORIDE 1.1% TOOTHPASTE BRUSH SMALL AMOUNT TO TEETH TWICE DAILY FOR TOOTH DECAY PREVENTI ON DENTAL DISCONT INUED (EDIT) 08/12/2023 [id number] ASHUTOSH MERCEDES 2022 100 [facility] Immunizations Combined list of available immunizations from the Department of Defense and Veterans Affairs facilities. Immunization Series Date Given Administered By Site Reaction Lot Number CVX Code Drug Director Life Insurance Status Comments Source INFLUENZA, HIGH-DOSE, TRIVALENT, PF 2023 VALORIE HUERTAS RIGHT DELTO ID [id number] 135 complet ed [facility] INFLUENZA, HIGH-DOSE, QUADRIVALENT 2022 VINICIUS MILES LEFT DELTO ID [id number] A 197 complet ed [facility] INFLUENZA VACCINE, QUADRIVALENT, ADJUVANTED 2021 205 complet ed [facility] COVID-19 (MODERNA), MRNA, LNP-S, PF, 100 MCG/0.5ML DOSE OR 50 MCG/0.25ML DOSE 4 2021 207 complet ed MOD; [id number]; 2 [facility] COVID-19 (MODERNA), MRNA, LNP-S, PF, 100 MCG/0.5ML DOSE OR 50 MCG/0.25ML DOSE 3 2020 207 complet ed [facility] COVID-19 (MODERNA), MRNA, LNP-S, PF, 100 MCG/0.5 ML DOSE 2 2020 207 complet ed MOD; [id number]; 1 [facility] COVID-19 (MODERNA), MRNA, LNP-S, PF, 100 MCG/0.5 ML DOSE 1 2020 207 complet ed MOD; [id number]; 1 [facility] [...] Reference Range Date Interpretation Specimen Comments Source OPIATES SCREEN PANEL OPIATES [PRESENCE] IN URINE [...] Apr 29, 2023 10:52 AM Reporting Lab: [address] [address] Performing Lab: [address] [address] [facility] OPIATES SCREEN PANEL PH OF URINE 6.0 [...] Apr 29, 2023 10:52 AM Reporting Lab: [address] [address] Performing Lab: [address] [address] [facility] OPIATES SCREEN PANEL CREATININE [MASS/VOLUM E] IN [...] Apr 29, 2023 10:52 AM Reporting Lab: [facility] [address] Performing Lab: [address] [address] [facility] OPIATES SCREEN PANEL SPECIFIC GRAVITY OF URINE [...] Apr 29, 2023 10:52 AM Reporting Lab: [address] [address] Performing Lab: [address] [address] [facility] OXYCODONE SCREEN PANEL OXYCODONE [PRESENCE] IN URINE [...] Apr 29, 2023 10:52 AM Reporting Lab: [facility] [place] [facility] [address] [facility] [address] Performing Lab: [facility] [place] [facility] [address] [facility] [address] [facility] OXYCODONE SCREEN [...] Apr 29, 2023 10:52 AM Reporting Lab: [facility] [place] [facility] [address] [facility] [address] Performing Lab: [facility] [place] [address] [address] [facility] [place] [facility] OXYCODONE SCREEN PANEL CREATININE [MASS/VOLUM E] IN [...] AM Reporting Lab: [facility] [place] [address] [address] Performing Lab: [facility] [place] [address] [address] [facility] [place] [facility] OXYCODONE SCREEN PANEL SPECIFIC GRAVITY OF URINE [...] Apr 29, 2023 10:52 AM Reporting Lab: [address] [address] Performing Lab: [address] [address] [facility] FENTANYL SCREEN PANEL FENTANYL [PRESENCE] IN URINE [...] Apr 29, 2023 10:52 AM Reporting Lab: [facility] [address] Performing Lab: [address] [address] [facility] FENTANYL SCREEN PANEL PH OF URINE 6.0 [...] Apr 29, 2023 10:52 AM Reporting Lab: [address] [address] Performing Lab: [address] [address] [facility] FENTANYL SCREEN PANEL CREATININE [MASS/VOLUM E] [...] Apr 29, 2023 10:52 AM Reporting Lab: [address] [address] Performing Lab: [address] [address] [facility] FENTANYL SCREEN PANEL SPECIFIC GRAVITY OF URINE [...] Apr 29, 2023 10:52 AM Reporting Lab: [facility] [address] Performing Lab: [address] [address] [facility] ALCOHOL, ETHYL URINE PANEL ETHANOL [MASS/VOLUM E] [...] Apr 29, 2023 10:52 AM Reporting Lab: [address] [address] Performing Lab: [address] [address] [facility] ALCOHOL, ETHYL URINE PANEL PH OF URINE [...] Apr 29, 2023 10:52 AM Reporting Lab: [address] [address] Performing Lab: [address] [address] [facility] ALCOHOL, ETHYL URINE PANEL CREATININE [MASS/VOLUM E] [...] Apr 29, 2023 10:52 AM Reporting Lab: [address] [address] Performing Lab: [address] [address] [facility] ALCOHOL, ETHYL URINE PANEL SPECIFIC GRAVITY OF [...] Apr 29, 2023 10:52 AM Reporting Lab: [address] [address] Performing Lab: [address] [address] [facility] CANNABINO IDS SCREEN PANEL CANNABINOID S [PRESENCE] [...] Apr 29, 2023 10:52 AM Reporting Lab: [facility] [place] [facility] [address] [facility] [address] Performing Lab: [facility] [place] [facility] [address] [facility] [address] [facility] [place] [facility] CANNABINO IDS SCREEN PANEL PH OF URINE [...] Apr 29, 2023 10:52 AM Reporting Lab: [facility] [place] [address] [address] Performing Lab: [facility] [place] [address] [address] [facility] CANNABINO IDS SCREEN PANEL CREATININE [MASS/VOLUM E] [...] Apr 29, 2023 10:52 AM Reporting Lab: [facility] [place] [address] [address] Performing Lab: [facility] [place] [address] [address] [facility] CANNABINO IDS SCREEN PANEL SPECIFIC GRAVITY OF [...] Apr 29, 2023 10:52 AM Reporting Lab: [address] [address] Performing Lab: [address] [address] [facility] COCAINE SCREEN PANEL COCAINE [PRESENCE] IN URINE [...] Apr 29, 2023 10:52 AM Reporting Lab: [address] [address] Performing Lab: [address] [address] [facility] COCAINE SCREEN PANEL PH OF URINE 6.0 [...] Apr 29, 2023 10:52 AM Reporting Lab: [facility] [place] [facility] [address] [facility] [address] Performing Lab: [facility] [address] [address] [facility]N [facility] COCAINE SCREEN PANEL CREATININE [MASS/VOLUM E] IN [...] Apr 29, 2023 10:52 AM Reporting Lab: [facility]OL[facility] [place] [address] [address] Performing Lab: [facility] [address] [address] [facility] COCAINE SCREEN PANEL SPECIFIC GRAVITY OF [...] Apr 29, 2023 10:52 AM Reporting Lab: [facility]ITAL[facility]OL[facility]TR[facility] [place] [address] [address] Performing Lab: [address] [address] [facility] BENZODIAZ EPINES SCREEN PANEL BENZODIAZEP KATHERIN [PRESENCE] [...] Apr 29, 2023 10:52 AM Reporting Lab: [address] [address] Performing Lab: [address] [address] [facility] BENZODIAZ EPINES SCREEN PANEL PH OF URINE [...] Apr 29, 2023 10:52 AM Reporting Lab: [address] [address] Performing Lab: [address] [address] [facility] BENZODIAZ EPINES SCREEN PANEL CREATININE [MASS/VOLUM E] [...] Apr 29, 2023 10:52 AM Reporting Lab: [facility] [place] [address] [address] Performing Lab: [facility] [place] [address] [address] [facility] [place] [facility] BENZODIAZ EPINES SCREEN PANEL SPECIFIC [...] Apr 29, 2023 10:52 AM Reporting Lab: [facility] [place] [address] [address] Performing Lab: [facility] [place] [address] [address] [facility] [place] [facility] PSA PROSTATE SPECIFIC AG [MASS/VOLUM E] IN SERUM OR PLASMA 3.88 ng/mL 0.00 - 4.00 Specimen Type: SERUM No comment entered. Ordering Provider: LINDA GONZALEZ Report Released Date/Time: May 20, 2023 10:17 AM Reporting Lab: [facility] [place] [address] [address] Performing Lab: [facility] [place] [address] [address] [facility] [place] [facility] IRON & TIBC PANEL IRON BINDING CAPACITY [MASS/VOLUM E] IN SERUM OR PLASMA 312 ug/dL 204 - 475 Specimen Type: SERUM No comment entered. Ordering Provider: ILNDA GONZALEZ Report Released Date/Time: May 20, 2023 10:17 AM Reporting Lab: [facility] [place] [facility] [address] [facility] [address] Performing Lab: [facility] [place] [facility] [address] [facility] [address] [facility] [place] [facility] IRON & TIBC PANEL IRON [MASS/VOLUM E] IN SERUM OR PLASMA 126 ug/dL 40 - 160 Specimen Type: SERUM No comment entered. Ordering Provider: LINDA GONZALEZ Report Released Date/Time: May 20, 2023 10:17 AM Reporting Lab: [facility] [place] [facility] [address] [facility] [address] Performing Lab: [facility] [place] [facility] [address] [facility] [address] [facility] [place] [facility] IRON & TIBC PANEL IRON/IRON BINDING CAPACITY.TO JERED [MASS RATIO] IN SERUM OR PLASMA 40.4 20.0 - 50.0 Specimen Type: SERUM No comment entered. Ordering Provider: LINDA GONZALEZ Report Released Date/Time: May 20, 2023 10:17 AM Reporting Lab: [facility] [place] [facility] [address] [facility] [address] Performing Lab: [facility] [place] [facility] [address] [facility] [address] [facility] [place] [facility] FERRITIN FERRITIN [MASS/VOLUM E] IN SERUM OR PLASMA 169 ng/mL 20 - 300 Specimen Type: SERUM No comment entered. Ordering Provider: LINDA GONZALEZ Report Released Date/Time: May 20, 2023 10:17 AM Reporting Lab: [facility] [place] [facility] [address] [facility] [address] Performing Lab: [facility] [place] [facility] [address] [facility] [address] [facility] [place] [facility] Vital Signs Combined list of inpatient and [...] Source [facility] PSYCHOTHER APY [id number] Diagnos is: ICD-10- CM F43.12 Post-tr aumatic stress disorde r, chronic
ANN WEI 10/20 [facility] [id number] Diagnos is: ICD-10- CM F43.12 Post-tr aumatic stress disorde r, chronic
ANN WEI 10/21 [facility] [id number] 10/30 [facility] En[facility] [id number] 10/30 [facility] En[facility] [id number] 11/18 [facility] En[facility] [id number] 12/08 [facility] En[facility] [id number] 12/15 [facility] En[facility] [id number] 12/18 [facility]counter [id number] 12/22 [facility]counter [id number] 12/23 [facility] Out[facility] Encounter [id number] 01/05 [facility] PSYTX W PT W E/M 30 MIN [id number] Diagnos is: ICD-10- CM F43.12 Post-tr aumatic stress disorde r, chronic
Saurav ALEMAN 01/13 [facility] [place] AD[place] [id number] MAYRA OSMAN 01/15 [facility] Out[facility] Encounter [id number] 01/26 [facility] [id number] 01/26 [facility] Out[facility] Encounter [id number] 02/05 [facility] CASE [facility] [id number] Diagnos is: ICD-10- CM K03.6 Deposit s [accret ions] on teeth<b r/> Andrea SERNA ADEZHDA 02/09 [facility] EYE EXAM&TX ESTAB PT 1/>VST [id number] Diagnos is: ICD-10- CM H25.813 Combine d forms of age-rel ated catarac t, bilater al
MARIALUISA REDDING E 04/07 [facility] FIT SPECTACLES MULTIFOCAL [id number] Diagnos is: ICD-10- CM Z46.0 Encount er for fit/adj st of spectac les and contact lenses< br/> MARIALUISA REDDING E 04/08 [facility] PSYTX W PT W E/M 30 MIN [id number] Diagnos is: ICD-10- CM F41.9 Anxiety disorde r, unspeci fied
Saurav ALEMAN 04/29 [facility] OFFICE O/P EST MOD 30 MIN [id number] Diagnos is: ICD-10- CM K51.90 Ulcerat bette colitis , unspeci fied, without complic ations< br/> LINDA GARCIA 05/20 [facility] Out[facility] Encounter [id number] 06/02 [facility] Encounter [id number] 06/10 [facility]counter [id number] 07/20 [facility] En[facility] [id number] 07/30 [facility] Out[facility] Encounter [id number] 08/03 [facility] OFFICE O/P EST MOD 30 MIN [id number] Diagnos is: ICD-10- CM 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
Saurav ALEMAN 09/01 [facility] Encounter [id number] 09/09 [facility] Encounter [id number] 09/09 [facility] Out[facility] Encounter [id number] 09/23 [facility] Encounter [id number] 10/04 [facility] PSYCH DIAGNOSTIC EVALUATION [id number] Diagnos is: ICD-10- CM F43.12 Post-tr aumatic stress disorde r, chronic
JUDIE CRUZ 10/07 [facility] Encounter [id number] 10/11 [facility] Out[facility] Encounter [id number] 10[facility]11 [facility] PSYTX W PT 45 MINUTES [id number] Diagnos is: ICD-10- CM F43.12 Post-tr aumatic stress disorde r, chronic
JUDIE CRUZ 11/02 [facility] Out[facility] Encounter [id number] JUDIE CRUZ 11/02 [facility] Out[facility] Encounter [id number] 11/25 [facility] Out[facility] Encounter [id number] 12/05 [facility] Out[facility] Encounter [id number] 12/07 [facility] PSYTX W PT 45 MINUTES [id number] Diagnos is: ICD-10- CM 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
Saurav ALEMAN 01/16 [facility] PSYTX W PT 45 MINUTES [id number] Diagnos is: ICD-10- CM K51.90 Ulcerat bette colitis , unspeci fied, without complic ations< br/> JUDIE CRUZ 01/31 [facility] Out[facility] Encounter [id number] 01/31 [facility] OFFICE O/P EST LOW 20 MIN [id number] 1. 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 Diagnos is: ICD-10- CM K03.6 Deposit s [accret ions] on teeth<b r/> Andrea SERNA 02/10 [facility] Out[facility] Encounter [id number] 02/14 [facility] RE-EVAL,ES T PT,PROBLEM FOCUS [id number] Diagnos is: ICD-10- CM K08.9 Disorde r of teeth and support ing structu res, unspeci fied
ASHUTOSH MERCEDES 02/15 [facility] Out[facility] Encounter [id number] 1.02/21 [facility] Out[facility] Encounter [id number] 03/23 [facility] OCCLUSAL GUARD SOFT [id number] 1. Diagnos is: ICD-10- CM K08.9 Disorde r of teeth and support ing structu res, unspeci fied
ASHUTOSH MERCEDES 03/24 [facility] Out[facility] Encounter [id number] 04/03 [facility] COMPRE OPH EXAM EST PT 1/ [id number] Diagnos is: ICD-10- CM H40.013 Open angle with borderl ine finding s, low risk, bilater al
MARIALUISA REDDING E 04/17 [facility] FIT SPECTACLES MULTIFOCAL [id number] 1. Diagnos is: ICD-10- CM Z46.0 Encount er for fit/adj st of spectac les and contact lenses< br/> MARIALUISA REDDING E 04/17 [facility] Outpatient Encounter [id number] 04/17 [facility] Social History Combined list of available smoking, tobacco, and other social history from Department of Defense and Veterans Affairs facilities. Social History Type Response Date Comment Sourc e Tobacco smoking status [facility] VA-TOBACCO FORMER USER 08/04/2023 [facility] History of tobacco use VA-TOBACCO QUIT 15 YRS OR MORE 08/04/2023 [facility] History of tobacco use VA-TOBACCO NEVER USED 08/05/2022 [facility] History of tobacco use VA-TOBACCO NEVER USED 08/22/2021 [facility] History of tobacco use VA-TOBACCO NEVER USED 04/29/2020 [facility] History of tobacco use VA-TOBACCO QUIT 15 YRS OR MORE 09/21/2018 [facility] History of tobacco use QUIT TOBACCO USE > 7 YEARS AGO 12/31/2017 [facility] History of tobacco use QUIT TOBACCO USE > 7 YEARS AGO 12/31/2016 [facility] History of tobacco use QUIT TOBACCO USE 1-7 YEARS AGO 12/31/[address] [facility] History of tobacco use QUIT TOBACCO USE > 7 YEARS AGO 01/08/[address] History of tobacco use QUIT TOBACCO USE > 7 YEARS AGO 11/15/2014 [facility] Plan of Care List of future care activities from Department of [facility] facilities[facility] Additional future care activities may be listed in the Assessment and Plan section. Date/Time Care Activity Care Activity Detail Facili ty 05/16/2024 AMBULATORY - PSYCHIATRY [facility] [place] [facility] 05/16/2024 AMBULATORY - MEDICINE [facility] [place] [facility] 05/23/2024 AMBULATORY - PSYCHIATRY [facility] [place] [facility] 05/24/2024 AMBULATORY - MEDIC[facility] [place] [facility] 05/30/2024 AMBULATORY - PSYCHIATRY [facility] [place] [facility] 06/13/2024 AMBULATORY - PSYCHIATRY [facility] [place] [facility] 06/27/2024 AMBULATORY - PSYCHIATRY AMBULATORY - [facility] [place] [facility] Advance Directives List of completed, amended, or rescinded Advance Directives on record at Department of [facility] facilities. An actual copy of the Directive is not included. Date Advance Directive Provider Source 01/01/2005 ADVANCE DIRECTIVE KLAUS PAZ [facility] [place] [facility]
--- OUTSIDE RECORDS SUMMARY | 2024-04-21 08:53 | XMS_ITS | Encounter Summary ---
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 May 03, 2018 [id number] Tracey BLISS PATIENT [employer] [facility]ENT[facility] Jul 01, 2013 [id number] Tracey BLISS PATIENT [employer]/NALC PREFERRED PROVIDER ORGANIZAT ION (PPO) [facility] Jul 01, 2013 [id number] [phone] Tracey BLISS PATIENT [employer] PREFERRED PROVIDER ORGANIZAT ION (PPO) [facility] Jan 01, 2011 [id number] [phone] Tracey BLISS PATIENT [employer]/NALC PREFERRED PROVIDER ORGANIZAT ION (PPO) [facility] HEALT H BENEF Jan 01, 2011 [id number] [phone] Tracey BLISS PATIENT MEDICARE (WNR) MEDICARE (M) PART B Jul 01, 2013 PART B [id number] Tracey BLISS PATIENT MEDICARE (WNR) MEDICARE (M) PART A Jul 01, 2013 PART A [id number] Tracey BLISS PATIENT MEDICARE (WNR) MEDICARE (M) PART A Jul 01, 2013 PART A [id number] Tracey BLSIS PATIENT [facility] PREFERRED PROVIDER ORGANIZAT ION (PPO) [facility] May 03, 2018 [id number] Tracey BLISS PATIENT [facility] (MED PRIME) PREFERRED PROVIDER ORGANIZAT ION (PPO) [facility] FAM[facility] Jul 01, 2013 [id number] Tracey BLISSH PATIENT [facility] (MED PRIME) PREFERRED PROVIDER ORGANIZAT ION (PPO) [facility] Jul 01, 2013 [id number] Tracey BLISSH PATIENT [facility] -MCR A ONLY Jul 01, 2013 [id number] Tracey BLISS PATIENT [facility]* Jan 01, 2011 [id number] Tracey BLISS PATIENT Selected Encounter This section includes the information on record at [place] for the Encounter. Date/Time Encounter Type Encounter Description Reason Provider Source May 20, 2023 10:00 AM OFFICE O/P EST MOD 30 MIN PRIMARY CARE/MEDICINE ICD-10-CM K51.90 Ulcerative colitis, unspecified, without complications LINDA PALOMINO [facility] Encounter Template Text not used by [place] Assessments - Encounter Diagnoses This section includes the primary and secondary diagnoses documented for the Encounter. Date/Time Primary/Secondary Diagnosis Diagnosis Name Provider Source Jun 02, 2023 10:11 AM PRIMARY Ulcerative colitis, unspecified, without complications LINDA PALOMINO [facility] Jun 02, 2023 10:11 AM SECONDARY Allergic rhinitis, unspecified OmayraOscarLINDA MACK [facility] Plan of Treatment: Future Appointments (+ 6 months) and Future Tests (+/- 45 days) The Plan of Treatment section includes future care activities for the patient [facility] This section includes future appointments and future orders which are active, pending or scheduled. Future Appointments This section includes appointments that were scheduled to occur 6 months from the date of the Encounter, up to a maximum of 20 appointments. The data comes from all [facility]. Appointment Date/Time Appointment Type Appointme nt Facility Name Jun 10, 2023 02:45 PM AMBULATORY - MEDICINE [facility] Aug 04, 2023 09:00 AM AMBULATORY MEDICINE [facility] September 02, 2023 10:30 AM AMBULATORY - PSYCHIATRY [facility] September 10, 2023 06:30 AM [facility] Oct 08, 2023 01:00 PM AMBULATORY - PSYCHIATRY [facility] Nov 03, 2023 09:00 AM AMBULATORY PSYCHIATRY [facility] Active, Pending, and Scheduled Orders This section includes a listing of several types of active, pending, and scheduled orders, including clinic medications orders, diagnostic test orders, procedure orders and consult orders; where the start date of the order is 45 days before the date of the Encounter or 45 days after the date of theEncounter. The data comes from all [facility]. Test Date/Time Test Type Test Details Facility Name May 20, 2023 12:00 AM Laboratory - Chemi stry Order LIPID PANEL, NON FASTING BLOOD (SST-SERUM) [facility] Vital Signs: All taken on the encounter date This section contains inpatient and outpatient Vital Signs collected on the date of the Encounter. Date/Time Temperature Pulse Blood Pressure Respiratory Rate SP02 Pain Height Weight Body Mass Index Source May 20, 2023 09:49 AM 97.2 F 71 /min 134/66 mm[Hg] 18 /min 97 % 0 206 lb [facility] Social History: Smoking Status (Most current) [...] 05, 2022 11:30 AM VA-[facility]ACCO [facility] Tobacco Use History This section includes a history of the smoking, or tobacco-related health factors, that were collected on or before the date of the Encounter. The data comes from the [place] facility where the Encounter took place. Date/Time Smoking Status/Tobacco Use Comment [facility] Aug 22, 2021 11:30 AM VA-TOBACCO NEVER USED [facility] [place] [facility] Apr 29, 2020 10:30 AM VA-TOBACCO NEVER USED [facility] [place] [facility] September 21, 2018 09:39 AM VA-TOBACCO FORMER USER [facility] [place] [facility] September 21, 2018 09:39 AM VA-TOBACCO QUIT 15 YRS OR MORE [facility] [place] [facility] Dec 31, 2017 02:50 PM QUIT TOBACCO USE > 7 YEARS AGO [facility] [place] [facility] Dec 31, 2016 09:33 AM QUIT TOBACCO USE > 7 YEARS AGO [facility] [place] [facility] Dec 31, 2016 09:31 AM QUIT TOBACCO USE 1 -7 YEARS AGO [facility] [place] [facility] Jan 08, 2016 01:57 PM QUIT TOBACCO USE > 7 YEARS AGO [facility] [place] [facility] Nov 15, 2014 10:48 AM QUIT TOBACCO USE > 7 YEARS AGO quit 1975 [facility] Advance Directives: All historical and current [...] Jan 01, 2005 ADVANCE DIRECTIVE KLAUS PAZ [facility] Encounter Notes: All associated encounter notes This [...] Registered Nurse Signed: 05/20/2023 09:52 ELIAS CARRANZA [facility] May 20, 2023 09:45 AM PREVENTIVE MEDICINE [...] Registered Nurse Signed: 05/20/2023 09:48 ELIAS CARRANZA [facility] May 20, 2023 09:27 AM PHYSICIAN NOTE: LOCAL TITLE: NOTE STANDARD TITLE: PHYSICIAN NOTE DATE OF NOTE: MAY 20, 2023@09:27 ENTRY DATE: MAY 20, 2023@09:27:42 AUTHOR: DANIEL PALOMINO EXP COSIGNER: URGENCY: STATUS: COMPLETED HISTORY OF PRESENT ILLNESS: = NED Len BLISS, is a 72 yo WHITE MALE [place] who presents at the [place] [facility]. colitis HPI. this vet returns to [place] PCP clinic to f/u for colitis. he [...] cell carcinoma of skin 2. Hyperlipidemia (SCT [id number]) 3. Anxiety 4. Hemorrhoid 5. Under care [...] this [facility] (local) and dispensed from another [place] or [facility] facility (remote) as well as inpatient orders [...] MD PHYSICIAN Signed: 05/20/2023 12:16 DANIEL PALOMINO [facility]
--- OUTSIDE RECORDS SUMMARY | 2024-04-21 08:53 | XMS_ITS | Encounter Summary ---
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 Name Role Phone LINDA PALOMINO Primary Care [...] Banegas CAREMARK PRESCRIPT ION [facility] May 03, 2018 [id number] [phone] Tracey BLISS PATIENT [employer] [facility] MENTAL HEALTH [facility] Jul 01, 2013 [id number] Tracey BLISS PATIENT [employer]IG[employer]/NALC PREFERRED PROVIDER ORGANIZAT ION (PPO) [facility] Jul 01, 2013 [id number] [phone] Tracey BLISS PATIENT [employer]IG[employer]/NALC PREFERRED PROVIDER ORGANIZAT ION (PPO) [facility] Jan 01, 2011 [id number] [phone] Tracey BLISSEP PATIENT CIG[employer]/NALC PREFERRED PROVIDER ORGANIZAT ION (PPO) [facility] HEALT H BENEF IT Jan 01, 2011 [id number] [phone] Tracey BLISS PATIENT MEDICARE (WNR) MEDICARE (M) PART B Jul 01, 2013 PART B [id number] Tracey BLISS PATIENT MEDICARE (WNR) MEDICARE (M) PART A Jul 01, 2013 PART A [id number] Tracey BLISS PATIENT MEDICARE (WNR) MEDICARE (M) PART A Jul 01, 2013 PART A [id number] Tracey BLISSH PATIENT [facility] PREFERRED PROVIDER ORGANIZAT ION (PPO) [facility] May 03, 2018 [id number] Tracey BLISS PATIENT [facility] (MED PRIME) PREFERRED PROVIDER ORGANIZAT ION (PPO) [facility] Jul 01, 2013 [id number] Tracey BLISSH PATIENT [facility] (MED PRIME) PREFERRED PROVIDER ORGANIZAT ION (PPO) [facility] Jul 01, 2013 32 [id number] Tracey BLISS PATIENT [facility] MENTAL HE[facility] -MCR A ONLY Jul 01, 2013 [id number] Tracey BLISS PATIENT [facility]* Jan 01, 2011 [id number] Tracey BLISS PATIENT Selected Encounter This section includes the information on record at [place] for the Encounter. Date/Time Encounter Type Encounter Description Reason Provider Source Apr 29, 2023 10:30 AM PSYTX W PT W E/M [facility] - IND ICD-10-CM F41.9 Anxiety disorder, unspecified DANIELLE ALEMAN E Encounter Template Text not used by [place] Assessments - Encounter Diagnoses This section includes the primary and secondary diagnoses documented for the Encounter. Date/Time Primary/Secondary Diagnosis Diagnosis Name Provider Source Apr 29, 2023 10:57 AM PRIMARY Anxiety disorder, unspecified DANIELLE ALEMAN [place] [facility] [place] [facility] Apr 29, 2023 10:57 AM SECONDARY Post-traumatic stress disorder, chronic ASH,DANIELLE Tavares [facility] Plan of Treatment: Future Appointments (+ 6 months) and Future Tests (+/- 45 days) The Plan of Treatment section includes future care activities for the [facility] [place] [facility] This section includes future appointments and future orders which are active, pending or scheduled. Future Appointments This section includes appointments that were scheduled to occur 6 months from the date of the Encounter, up to a maximum of 20 appointments. The data comes from all [facility]. Appointment Date/Time Appointment Type Appointme nt Facility Name May 20, 2023 10:00 AM AMBULATORY MEDICINE [facility] Jun 10, 2023 02:45 PM AMBULATORY [facility] Aug 04, 2023 09:00 AM AMBULATORY MEDICINE [facility] September 02, 2023 10:30 AM AMBULATORY PSYCHIATRY [facility] September 10, 2023 06:30 AM AMBULATORY MEDICINE [facility] Oct 08, 2023 01:00 PM AMBULATORY PSYCHIATRY [facility] Active, Pending, and Scheduled Orders This section includes a listing of several types of active, pending, and scheduled orders, including clinic medications orders, diagnostic test orders, procedure orders and consult orders; where the start date of the order is 45 days before the date of the Encounter or 45 days after the date of theEncounter. The data comes from all [facility]. Test Date/Time Test Type Test Details Facility Name May 20, 2023 12:00 AM Laboratory - Chemi stry Order LIPID PANEL, NON FASTING BLOOD (SST-SERUM) [facility] Social History: Smoking Status (Most current) and Tobacco Use (All prior to encounter date) This section includes the most current, and the historical, smoking and tobacco- related health factors from the [place] facility where the Encounter took place. Current Smoking Status This section includes the most current smoking, or tobacco-related health factor, from the [place] facility where the Encounter took place. Date/Time Current Smoking Status Comment Facil ity Aug 05, 2022 11:30 AM VA-TOBACCO NEVER USED [facility] Tobacco Use History This section includes a history of the smoking, or tobacco-related health factors, that were collected on or before the date of the Encounter. The data comes from the [place] facility where the Encounter took place. Date/Time Smoking Status/Tobacco Use Comment Len acba Aug 22, 2021 11:30 AM [facility] Apr 29, 2020 10:30 AM [facility] September 21, 2018 09:39 AM [facility]AC[facility] September 21, 2018 09:39 AM VA-TOBACCO QUIT 15 YRS OR MORE [facility] Dec 31, 2017 02:50 PM QUIT TOBACCO USE > 7 YEARS AGO [facility] Dec 31, 2016 09:33 AM QUIT TOBACCO USE > 7 YEARS AGO [facility] Dec 31, 2016 09:31 AM QUIT TOBACCO USE 1 -7 YEARS AGO [facility] Jan 08, 2016 01:57 PM QUIT TOBACCO USE > 7 YEARS AGO [facility] Nov 15, 2014 10:48 AM QUIT TOBACCO USE > 7 YEARS AGO quit [facility] Advance Directives: All historical and current Section Date Range: From patient's date of to the date document was created. This section includes ALL of a patient's completed or amended [place] Advance and Rescinded Directives. The entries below indicate that a directive exists for the patient, but an actual copy is not included with this document. The data comes from all [place] facilities. Date Advance Directives Provider Source Jan 01, 2005 ADVANCE DIRECTIVE KLAUS PAZ [facility] Encounter Notes: All associated encounter notes This [...] MALE was seen for scheduled follow-up at [facility] for Dx: PTSD Two identifiers used. Appt [...] percent service connected for migraines and sinusitis. Hope had attended PTSD group with Dr. Durbin until she retired, and he is also followed by optometry and dental at this [facility]. PACT team was changed to #4, Dr Harp. He is also followed in [facility] for dermatology. He has an outside PC as well, so his care is a bit fragmented. It is difficult to get UDS from [facility] as he does not often come to care at this [place] due to having an outside PCP. Had [...] med program at least once a year. Hope had complained about problems with one of his bills but states it is getting fixed now . Had a growth removed in [facility] and will be having a recheck on this. SUBJECTIVE: The Hope was seen today for routine follow up; visit lasted for 30 minutes. Hope reports doing well with current mental health medication, stated he is satisfied with current care. He still has community physician but is also using [facility] and he has upcoming appt here next year. He comes to [place] once a year to maintain his PACT team and still sees his community PCP as well. He has been enjoying holidays with his family, celebrated [place] with his children and they are all [...] a year, got some chocolate liqueor for [place] but drinks sparingly. Does not mix with [...] 30.2 Neut %: 68.0 Lymph %: 20.9 Peñuelas %: 9.3 Eos %: 1.2 Baso %: 0.4 Neut, Abs: 3.35 Lymph, Abs: 1.03 Peñuelas, Abs: 0.46 Eos, Abs: 0.06 Baso, Abs: [...] MALE, presents today sounding calm and focused. [facility] worked today and he is noted dressed in white button down shirt and dark slacks with dress shoes. Sitting in dining area and moves around a bit. He states he is doing fine with current mental health medications. No side effects or other med issues endorsed. Mental health meds are at [place] and physical care is managed mostly in the community. We have talked about the problems with having many providers in different places and he had stated considering consolidating care, but he has not done so. Hope relates that the face to face group [...] follow up appts and he affirmed understanding. Hope now appears (x)stable psychiatrically ()unstable psychiatrically i. [...] continue the med. 2. Appointments reviewed with Hope and labs reviewed briefly as well. 3. vet might check with [facility] regarding a possible group for the future [...] Not worried about housing near future The Hope reports the following: Within the past 12 months, you worried whether your food would run out before you got money to buy more. Never true Within the past 12 months, the food you bought just didn't last and you didn't have money to get more. Never true /darcy/ CHERELLE Tavares. ASH RN,MSN,PSYCH N.P., STAFF CLINICAL NURSE SPECIALIST Signed: 04/29/2023 11:00 CHERELLE ALEMAN [facility] Apr 28, 2023 09:46 PM ACCOUNTING OF DISCLOSURES NOTE: LOCAL TITLE: STATE PRESCRIPTION DRUG MONITORING PROGRAM STANDARD TITLE: ACCOUNTING OF DISCLOSURES NOTE DATE OF NOTE: APR 28, 2023@21:46:27 ENTRY DATE: APR 28, 2023@21:46:27 AUTHOR: CHERELLE ALEMAN EXP COSIGNER: URGENCY: STATUS: COMPLETED This PDMP query was submitted by Cherelle Aleman [facility]. The clinical justification for this PDMP query is to review controlled substances prescribed outside of the [facility], and any additional information that may become available, as an important component of standard clinical care, and in accordance with [facility] policy. Patient information was shared with the PDMP [place]. Prescription(s) filled outside the [facility] in the last 90 days are noted. However, they do not raise significant safety concerns and do not influence the treatment plan at this time. muscle relaxer ongoing from [facility]. /darcy/ CHERELLE Tavares. ASH RN,MSN,PSYCH N.P., STAFF CLINICAL NURSE SPECIALIST Signed: 04/29/2023 11:00 CHERELLE ALEMAN [facility]
--- OUTSIDE RECORDS SUMMARY | 2024-04-21 08:53 | XMS_ITS | Encounter Summary ---
Author Name [facility] [place] Organization [place] Address [address] [place] [id number] Care Team Providers Care Garden Labourer Name Role Phone LINDA PALOMINO Primary Care [...] Relationship to Policy Banegas CAREMARK PRESCRIPT ION [facility] May 03, 2018 [id number] Tracey BLISS PATIENT [facility] BE[facility]IOR[facility] HE[facility] MENTAL HEALTH [facility] Jul 01, 2013 [id number] Tracey BLISS PATIENT CIGNA/NALC PREFERRED PROVIDER ORGANIZAT ION (PPO) [facility] Jul 01, 2013 [id number] Tracey BLISS PATIENT CIGNA/NALC PREFERRED PROVIDER ORGANIZAT ION (PPO) [facility] Jan 01, 2011 [id number] Tracey BLISS PATIENT CIGNA/NALC PREFERRED PROVIDER ORGANIZAT ION (PPO) [facility] HEALT H BENEF Jan 01, 2011 [id number] Tracey BLISS PATIENT MEDICARE (WNR) MEDICARE (M) PART B Jul 01, 2013 PART B [id number] Tracey BLISS PATIENT MEDICARE (WNR) MEDICARE (M) PART A Jul 01, 2013 PART A [id number] Tracey BLISS PATIENT MEDICARE (WNR) MEDICARE (M) PART A Jul 01, 2013 PART A [id number] Tracey BLISS PATIENT [facility] PREFERRED PROVIDER ORGANIZAT ION (PPO) [facility] May 03, 2018 [id number] Tracey BLISS PATIENT [facility] (MED PRIME) PREFERRED PROVIDER ORGANIZAT ION (PPO) [facility] FAMIL Y Jul 01, 2013 [id number] Tracey BLISS PATIENT [facility] (MED PRIME) PREFERRED PROVIDER ORGANIZAT ION (PPO) [facility] Jul 01, 2013 32 [id number] Tracey BLISS PATIENT [facility] -MCR A ONLY Jul 01, 2013 [id number] Tracey BLISS PATIENT [facility]* Jan 01, 2011 [id number] Tracey BLISS PATIENT Selected Encounter This section includes the information on record at [place] for the Encounter. Date/Time Encounter Type Encounter [...] 20 appointments. The data comes from all [facility]. Appointment Date/Time Appointment Type Appointme nt Facility Name Jun 10, 2023 02:45 PM AMBULATORY - MEDICINE [facility] Aug 04, 2023 09:00 AM AMBULATORY - MEDICINE [facility] NTRL TRN [facility] September 02, 2023 10:30 AM [facility] September 10, 2023 06:30 AM [facility] Oct 08, 2023 01:00 PM AMBULATORY - PSYCHIATRY [facility] Nov 03, 2023 09:00 AM AMBULATORY PSYCHIATRY [facility] Active, Pending, and Scheduled Orders This section includes a listing of several types of active, pending, and scheduled orders, including clinic medications orders, diagnostic test orders, procedure orders and consult orders; where the start date of the order is 45 days before the date of the Encounter or 45 days after the date of theEncounter. The data comes from all [facility]. Test Date/Time Test Type Test Details Facility Name May 20, 2023 12:00 AM Laboratory - Chemi stry Order LIPID PANEL, NON FASTING BLOOD (SST-SERUM) SP [facility] Lab Results: +/- 30 days of the encounter This section includes the Chemistry and Hematology Lab Results on record with ID for the patient. Radiology Reports and Pathology Reports are provided separately, in subsequent sections. Lab Results This section contains the Chemistry/Hematology Results that were resulted 30 days before or 30 daysafter the date of the Encounter. Date/Time Source Result Type Result - Unit Interpretation Reference Range Comment Jul 01, 2023 09:01 AM [facility] OPIATES SCREEN PANEL Specimen Type: URINE Comment: [...] 11 may have been adulterated. Ordering Provider: ASH,HANNAH LA B Report Released Date/Time: Apr 29, 2023 10:52 AM Reporting Lab: [address] [address] Performing Lab: [address] [address] OPIATES SCREEN NONE-DETECTED N one-Detec lidia, Cutoff = 300 ng/mL PH, SERENA 6.0 [pH] 4-10 CREATININE, SERENA 271.02 mg/dL >20 SP.GRAVITY, SERENA 1.023 H 1.00 3-1.02 0 Jul 01, 2023 09:01 AM [facility] FENTANYL SCREEN PANEL Specimen Type: URINE Comment: [...] Apr 29, 2023 10:52 AM Reporting Lab: [address] [address] Performing Lab: [address] [address] FENTANYL SCREEN NONE-DETECTE D ng/mL Negative: Cutoff = 1.00 ng/mL PH, SERENA 6.0 [pH] 4-10 CREATININE, SERENA 261.96 mg/dL >20 SP.GRAVITY, SERENA 1.023 H 1.00 3-1.02 0 Jul 01, 2023 09:01 AM [facility] ALCOHOL, ETHYL URINE PANEL Specimen Type: URINE [...] Apr 29, 2023 10:52 AM Reporting Lab: [address] [address] Performing Lab: [address] [address] ALCOHOL, ETHYL URINE NONE-DETECTED mg/dL NONE-DETEC LIDIA, cutoff = 10 mg/dL PH, SERENA 6.0 [pH] 4-10 CREATININE, SERENA 271.02 mg/dL >20 SP.GRAVITY, SERENA 1.023 H 1.00 3-1.02 0 Jul 01, 2023 09:01 AM [facility] BENZODIAZEPINES SCREEN PANEL Specimen Type: URINE Comment: [...] Apr 29, 2023 10:52 AM Reporting Lab: [address] [address] Performing Lab: [address] [address] BENZODIAZEPINES SCREEN NONE-DETECTED None-Detec lidia, Cutoff = 200 ng/mL PH, SERENA 6.0 [pH] 4-10 CREATININE, SERENA 271.02 mg/dL >20 SP.GRAVITY, SERENA 1.023 H 1.00 3-1.02 0 Jul 01, 2023 09:01 AM [facility] CANNABINOIDS SCREEN PANEL Specimen Type: URINE Comment: [...] Apr 29, 2023 10:52 AM Reporting Lab: [address] [address] Performing Lab: [address] [address] CANNABINOIDS SCREEN NONE-DETECTED None-Detec lidia,Cutoff = 50 ng/mL PH, SERENA 6.0 [pH] 4-10 CREATININE, SERENA 271.02 mg/dL >20 SP.GRAVITY, SERENA 1.023 H 1.00 3-1.02 0 Jul 01, 2023 09:01 AM [facility] OXYCODONE SCREEN PANEL Specimen Type: URINE Comment: [...] Apr 29, 2023 10:52 AM Reporting Lab: [address] [address] Performing Lab: [address] [address] OXYCODONE SCREEN NONE-DETECTED None-Detec lidia, Cutoff = 100 ng/mL PH, SERENA 6.0 [pH] 4-10 CREATININE, SERENA 271.02 mg/dL >20 SP.GRAVITY, SERENA 1.023 H 1.00 3-1.02 0 Jul 01, 2023 09:01 AM [facility] COCAINE SCREEN PANEL Specimen Type: URINE Comment: [...] Apr 29, 2023 10:52 AM Reporting Lab: [facility] [address] [facility] [address] Performing Lab: [facility] [address] [facility] [address] COCAINE SCREEN NONE-DETECTED N one-Detec lidia,Cutoff = 300 ng/mL PH, SERENA 6.0 [pH] 4-10 CREATININE, SERENA 271.02 mg/dL >20 SP.GRAVITY, SERENA 1.023 H 1.00 3-1.02 0 Jul 01, 2023 08:52 AM [facility] PSA Specimen Type: SERUM No comment entered. Ordering Provider: LINDA PALOMINO Report Released Date/Time: May 20, 2023 10:17 AM Reporting Lab: [facility] [address] [facility] [address] Performing Lab: [address] [address] PSA 3.88 ng/mL 0.00-4.00 Jul 01, 2023 08:52 AM [facility] FERRITIN Specimen Type: SERUM No comment entered. Ordering Provider: LINDA PALOMINO Report Released Date/Time: May 20, 2023 10:17 AM Reporting Lab: [facility] [address] [facility] [address] Performing [facility]: [facility] [address] FERRITIN 169 ng/mL 20-300 Jul 01, 2023 08:52 AM [facility] IRON & TIBC PANEL Specimen Type: SERUM No comment entered. Ordering Provider: LINDA PALOMINO Report Released Date/Time: May 20, 2023 10:17 AM Reporting Lab: [facility] [place] [address] Performing Lab: [facility] [address] [facility] [address] TIBC 312 ug/dL 204-475 IRON 126 ug/dL 40-160 Transferrin Saturation 40.4 20.0-50.0 Jul 01, 2023 08:52 AM [facility] HEMOGLOBIN A1C PANEL Specimen Type: BLOOD Comment: [...] May 20, 2023 10:17 AM Reporting Lab: [address] [address] Performing Lab: [address] [address] HEMOGLOBIN A1C 5.6 4.0-5.6 Jul 01, 2023 08:52 AM [facility] TSH Specimen Type: SERUM No comment entered. Ordering Provider: LINDA PALOMINO Report Released Date/Time: May 20, 2023 10:17 AM Reporting Lab: [address] [address] Performing Lab: [facility] [address] TSH 1.73 u[IU]/mL 0.35-5.00 Jul 01, 2023 08:52 AM [facility] BASIC METABOLIC PANEL (non-fasting) Specimen Type: SERUM No comment entered. Ordering Provider: LINDA PALOMINO Report Released Date/Time: May 20, 2023 10:17 AM Reporting Lab: [address] [address] Performing Lab: [facility] [address] [facility] [address] UREA NITROGEN 19 mg/dL 7-25 GLUCOSE 99 mg/dL 65-100 SODIUM 142 mmol/L 135-145 POTASSIUM 4.0 mmol/L 3.5-5.0 CHLORIDE 107 mmol/L 100-110 CO2 27 meq/L 20-30 CREATININE, Serum 1.08 mg/dL 0.50-1.40 eGFR(CKD-EPI 2020) 72 mL/min >60 Jul 01, 2023 08:52 AM [facility] LIVER FUNCTION Specimen Type: SERUM No comment entered. Ordering Provider: LINDA PALOMINO Report Released Date/Time: May 20, 2023 10:17 AM Reporting Lab: [address] [address] Performing Lab: [address] [address] PROTEIN,TOTAL 7.3 g/dL 6.0-8.3 ALBUMIN 3.9 g/dL 3.5-5.0 ALKALINE PHOSPHATASE 52 U/L 40-150 AST 18 U/L 5-34 ALT 17 U/L BILIRUBIN, TOTAL 0.7 mg/dL 0.2-1.2 Jul 01, 2023 08:52 AM [facility] LIPID PANEL, NON FASTING Specimen Type: SERUM No comment entered. Ordering Provider: LINDA PALOMINO Report Released Date/Time: May 20, 2023 10:17 AM Reporting Lab: [address] [address] Performing Lab: [address] [address] CHOLESTEROL 198 mg/dL TRIGLYCERIDE 82 mg/dL 0-150 LDL calculated 140 mg/dL H 0-129 CHOL/HDL 4.7 HDL CHOLESTEROL 42 mg/dL 40-60 Jul 01, 2023 08:52 AM [facility] CBC AND DIFF (AUTO) Specimen Type: BLOOD No comment entered. Ordering Provider: LINDA PALOMINO Report Released Date/Time: May 20, 2023 10:17 AM Reporting Lab: [facility] [address] [facility] [address] Performing Lab: [facility] [address] [facility] [address] WBC 4.17 10*3/uL L 4.50-11.00 RBC 4.71 10*6/uL 4.23-5.66 HGB 14.4 g/dL 12.8-17 HCT 43.4 39.2-50.4 MCV 92.1 fL 82-99 MCHC 33.2 g/dL 30.8-35.1 PLT 254 10*3/uL 140-360 RDW-CV 12.3 12.0-16.0 [place], Abs 0.42 10*3/uL 0.30-1.10 MCH 30.6 pg 26.2-32.6 Neut % 59.8 43.7-75.8 Lymph % 28.3 14.0-42.3 [place] % 10.1 5.1-13.7 Eos % 1.4 0.4-6.8 [...] and tobacco- related health factors from the [place] facility where the Encounter took place. Current Smoking Status This section includes the most current smoking, or tobacco-related health factor, from the [place] facility where the Encounter took place. Date/Time Current Smoking Status Comment Facil itberto Aug 05, 2022 11:30 AM VA-TOBACCO NEVER USED [facility] Tobacco Use History This section includes a history of the smoking, or tobacco-related health factors, that were collected on or before the date of the Encounter. The data comes from the [place] facility where the Encounter took place. Date/Time Smoking Status/Tobacco Use Comment F acility Aug 22, 2021 11:30 AM VA-TOBACCO [facility]ED [facility] Apr 29, 2020 10:30 AM VA-TOBACCO [facility]ED [facility] September 21, 2018 09:39 AM VA-TOBACCO FORMER [facility]ER [facility] September 21, 2018 09:39 AM VA-TOBACCO QUIT 15 YRS OR MORE [facility] Dec 31, 2017 02:50 PM QUIT TOBACCO USE > 7 YEARS AGO [facility] Dec 31, 2016 09:33 AM QUIT TOBACCO USE > 7 YEARS AGO [facility] Dec 31, 2016 09:31 AM QUIT TOBACCO USE 1 -7 YEARS AGO [facility] Jan 08, 2016 01:57 PM QUIT TOBACCO USE > 7 YEARS AGO [facility] Nov 15, 2014 10:48 AM QUIT TOBACCO USE > 7 YEARS AGO quit 1975 [facility] Advance Directives: All historical and current Section Date Range: From patient's date of to the date document was created. This section includes ALL of a patient's completed or amended [place] Advance and Rescinded Directives. The entries below indicate that a directive exists for the patient, but an actual copy is not included with this document. The data comes from all [place] facilities. Date Advance Directives Provider Source Jan 01, 2005 ADVANCE DIRECTIVE KLAUS PAZ [facility] Encounter Notes: All associated encounter notes This [...] Patient Name: NED BLISS Patient Primary Phone: [phone] Patient Primary Address: [address] [place] [address] Patient : 1950 Patient Age: 72 Caller/Recipient Relation to Patient: Self Administrative Administrative Note Reason: Community Care / [place] Act Administrative Note Comments: stated, ''I have check up with Dr. Letty Jimenez on 06/10 to follow up on my Mohs operation and was told that I need a new ID authorization.'' Requesting a call back. /es/ JUJU DAHL [address] [facility] AMSA Signed: 06/02/2023 11:46 Receipt Acknowledged By: 06/02/2023 13:57 /darcy/ OLIVER AGUAYO, RN, CNL PRIMARY CARE TEAM NURSE * AWAITING SIGNATURE * ANNA HUERTAS MICHELLE L ID CNTRL [place] [facility] Jun 02, 2023 11:46 AM ADMINISTRATIVE NOTE: LOCAL TITLE: CCC: SCHEDULING ADMINISTRATION STANDARD TITLE: ADMINISTRATIVE NOTE DATE OF NOTE: JUN 02, 2023@11:46:45 ENTRY DATE: JUN 02, 2023@11:46:45 AUTHOR: JUJU BROWN EXP COSIGNER: URGENCY: STATUS: COMPLETED CCC: SCHEDULING ADMINISTRATION Has ADDENDA Patient Demographics Patient Name: NED BLISS Patient Primary Phone: [phone] Patient Primary Address: [address] [place] [address] Patient : 1950 Patient Age: 72 Caller/Recipient Relation to Patient: Self Administrative Administrative Note Reason: Community Care / [place] Act Administrative Note Comments: Wayne stated, ''I have check up with Dr. Letty Jimenez on 06/10 to follow up on my Mohs operation and was told that I need a new VA authorization.'' Requesting a call back. /darcy/ JUJU DAHL [address] [facility] AMSA Signed: 06/02/2023 11:46 Receipt Acknowledged By: 06/02/2023 13:57 /es/ REGI LANG, MSN, RN, CNL PRIMARY CARE TEAM NURSE 06/02/2023 15:03 /es/ Anna Huertas molder shoulder pad Staff Nurse 06/02/2023 ADDENDUM STATUS: COMPLETED Forwarding to provider to place a new [facility] Dermatology referral. /es/ REGI LANG MSN, RN, CNL PRIMARY CARE TEAM NURSE Signed: 06/02/2023 13:57 Receipt Acknowledged By: 06/02/2023 15:00 /es/ MD PHYSICIAN KEVIN WAN [facility]
--- OUTSIDE RECORDS SUMMARY | 2024-04-21 08:54 | XMS_ITS | Encounter Summary ---
Author Name [place] Address [address] [place] [address] Care Team Providers Care Lumber Driver Name Role Phone LINDA PALOMINO Primary Care [...] Relationship to Policy Banegas CAREMARK PRESCRIPT ION [facility] May 03, 2018 [id number] Tracey BLISS PATIENT CIG[employer] BEHAVIORAL HEALTH MENTAL HEALTH [facility] Jul 01, 2013 [id number] Tracey BLISS PATIENT CIGNA/NALC PREFERRED PROVIDER ORGANIZAT ION (PPO) [facility] Jul 01, 2013 [id number] Tracey BLISS PATIENT CIGNA/NALC PREFERRED PROVIDER ORGANIZAT ION (PPO) [facility] Jan 01, 2011 [id number] Tracey BLISS PATIENT CIGNA/NALC PREFERRED PROVIDER ORGANIZAT ION (PPO) [facility] HEALT H BENEF Jan 01, 2011 [id number] Tracey BLISS PATIENT MEDICARE (WNR) MEDICARE (M) PART B Jul 01, 2013 PART B [id number] Tracey BLISS PATIENT MEDICARE (WNR) MEDICARE (M) PART A Jul 01, 2013 PART A [id number] Tracey BLISS PATIENT MEDICARE (WNR) MEDICARE (M) PART A Jul 01, 2013 PART A [id number] Tracey BLISS PATIENT [facility] PREFERRED PROVIDER ORGANIZAT ION (PPO) [facility] May 03, 2018 32 [id number] [phone] Tracey BLISS PATIENT [facility] (MED PRIME) PREFERRED PROVIDER ORGANIZAT ION (PPO) [facility] FAMIL Y Jul 01, 2013 [id number] Tracey BLISS PATIENT [facility] (MED PRIME) PREFERRED PROVIDER ORGANIZAT ION (PPO) [facility] Jul 01, 2013 32 [id number] Tracey BLISS PATIENT [facility] -MCR A ONLY Jul 01, 2013 [id number] Tracey BLISS PATIENT [facility]* Jan 01, 2011 [id number] Tracey BLISS PATIENT Selected Encounter This section includes the information on record at [place] for the Encounter. Date/Time Encounter Type Encounter Description Reason Pro vider Source Jul 31, 2023 09:15 AM Outpatient Encounter ADMIN PAT ACTIVTIES (MASNONCT) [...] 20 appointments. The data comes from all [place] treatment facilities. Appointment Date/Time Appointment Type Appointme nt Facility Name Aug 04, 2023 09:00 AM AMBULATORY - MEDICINE [place] [facility] September 02, 2023 10:30 AM AMBULATORY - PS[place]CHIATRY [place] [facility] [place] [facility] September 10, 2023 06:30 AM AMBULATORY - MEDICINE [place] C [place] [facility] Oct 08, 2023 01:00 PM AMBULATORY - PSYCHIATRY [place] [facility] [facility] Nov 03, 2023 09:00 AM AMBULATORY - PSYCHIATRY [place] [facility] [place] [facility] Jan 11, 2024 10:00 AM AMBULATORY - PSYCHIATRY [place] [facility] [facility] Jan 17, 2024 10:30 AM AMBULATORY - PS[place]CHIATRY [place] [facility] [facility] Social History: Smoking Status (Most [...] 05, 2022 11:30 AM VA-TOBACCO NEVER USED [place] [facility] Tobacco Use History This section includes a history of the smoking, or tobacco-related health factors, that were collected on or before the date of the Encounter. The data comes from the [place] facility where the Encounter took place. Date/Time Smoking Status/Tobacco Use Comment F acility Aug 22, 2021 11:30 AM VA-TOBACCO NEVER USED [place] [facility] [place] [facility] Apr 29, 2020 10:30 AM VA-TOBACCO NEVER USED [place] [facility] [place] [facility] September 21, 2018 09:39 AM VA-TOBACCO FORMER USER [facility] [place] [facility] September 21, 2018 09:39 AM VA-TOBACCO QUIT 15 YRS OR MORE [facility] [place] [facility] Dec 31, 2017 02:50 PM QUIT TOBACCO USE > 7 YEARS AGO [place] [facility] [place] [facility] Dec 31, 2016 09:33 AM QUIT TOBACCO USE > 7 YEARS AGO [place] [facility] [place] [facility] Dec 31, 2016 09:31 AM QUIT TOBACCO USE 1 -7 YEARS AGO [place] CNTR [place] [facility] Jan 08, 2016 01:57 PM QUIT TOBACCO USE > 7 YEARS AGO [facility] Nov 15, 2014 10:48 AM QUIT TOBACCO USE > 7 YEARS AGO quit 1975 [facility] Advance Directives: All historical and current Section Date Range: From patient's date of to the date document was created. This section includes ALL of a patient's completed or amended [place] Advance and Rescinded Directives. The entries below indicate that a directive exists for the patient, but an actual copy is not included with this document. The data comes from all [place] facilities. Date Advance Directives Provider Source Jan 01, 2005 ADVANCE DIRECTIVE KLAUS PAZ [facility] Encounter Notes: All associated encounter notes This section contains the clinical notes associated to the Encounter. Date/Time Encounter Note(s) Provider Source Jul 31, 2023 09:15 AM ADMINISTRATIVE NOT E: LOCAL TITLE: CCC: SCHEDULING ADMINISTRATION STANDARD TITLE: ADMINISTRATIVE NOTE DATE OF NOTE: JUL 31, 2023@09:15 ENTRY DATE: JUL 31, 2023@09:15:29 AUTHOR: MUKUND [place] COSIGNER: URGENCY: STATUS: COMPLETED CCC: SCHEDULING ADMINISTRATION Has ADDENDA Verify Patient Demographics; Successfully verified patient demographics Other/General comments: Vet called to alert pact that he was seen at [facility]. Requesting discharge f/u appt. and med to be filled at the md. /darcy/ MUKUND W[place] V2 CCC AMSA Signed: 07/31/2023 09:18 Receipt Acknowledged By: 08/02/2023 08:50 /darcy/ JEMAL MCKENNA Advanced Graphics Edit Technician 08/02/2023 09:34 /darcy/ Anna Cho, worsted winder Staff Nurse for REGI LANG 08/02/2023 ADDENDUM STATUS: COMPLETED Scheduled. /darcy/ JEMAL MCKENNA Advanced Graphics Edit Technician Signed: 08/02/2023 08:50 MUKUND [place] [facility]
--- OUTSIDE RECORDS SUMMARY | 2024-04-21 08:54 | XMS_ITS ---
Author Name Department [facility] [place] [facility] [place] Organization [facility] [place] Address [address] [place] [id number] Care Team Providers Care Agricultural Equipment Operator Name Role Phone LINDA PALOMINO Primary [...] Relationship to Policy Banegas CAREMARK PRESCRIPT ION [facility] May 03, 2018 [id number] Tracey BLISS PATIENT [employer] HE[facility] Jul 01, 2013 [id number] [facility] CIG[facility]/NALC PREFERRED PROVIDER ORGANIZAT ION (PPO) [facility] Jul 01, 2013 32 [id number] [phone] Tracey BLISS PATIENT CIGNA/NALC PREFERRED PROVIDER ORGANIZAT ION (PPO) [facility] Jan 01, 2011 [id number] [phone] Tracey BLISS PATIENT CIGNA/NALC PREFERRED PROVIDER ORGANIZAT ION (PPO) [facility] Jan 01, 2011 [id number] [phone] Tracey BLISS PATIENT MEDICARE (WNR) MEDICARE (M) PART B Jul 01, 2013 PART B [id number] Tracey BLISS PATIENT MEDICARE (WNR) MEDICARE (M) PART A Jul 01, 2013 PART A [id number] [phone] Tracey BLISS PATIENT MEDICARE (WNR) MEDICARE (M) PART A Jul 01, 2013 PART A [id number] Tracey BLISS PATIENT [facility] PREFERRED PROVIDER ORGANIZAT ION (PPO) [facility] May 03, 2018 32 [id number] Tracey BLISS PATIENT [facility] (MED PRIME) PREFERRED PROVIDER ORGANIZAT ION (PPO) [facility] Jul 01, 2013 [id number] Tracey BLISS PATIENT [facility] (MED PRIME) PREFERRED PROVIDER ORGANIZAT ION (PPO) [facility] Jul 01, 2013 32 [id number] Tracey BLISS PATIENT [facility] -MCR A ONLY Jul 01, 2013 [id number] Tracey BLISS PATIENT [facility]* Jan 01, 2011 [id number] Tracey BLISS PATIENT Selected Encounter This section includes the information on record at [place] for the Encounter. Date/Time Encounter Type Encounter Description Reason Pro vider Source Aug 04, 2023 12:00 AM Outpatient Encounter EVENT (HISTORICAL) IHE Encounter Template Text not used by [place] Plan of Treatment: Future Appointments (+ 6 [...] AMBULATORY - PSYCHIATRY [facility] [place] [facility] September 10, 2023 06:30 AM AMBULATORY - MEDICINE [facility] [place] [facility] Oct 08, 2023 01:00 PM AMBULATORY - PSYCHIATRY [facility] [place] [facility] Nov 03, 2023 09:00 AM AMBULATORY - PSYCHIATRY [facility] [place] [facility] Jan 11, 2024 10:00 AM AMBULATORY - PSYCHIATRY [facility] [place] [facility] Jan 17, 2024 10:30 AM AMBULATORY - PSYCHIATRY [facility] [place] [facility] Feb 01, 2024 10:00 AM AMBULATORY - PSYCHIATRY [place] [facility] [place] [facility] Vital Signs: All taken on the encounter date This section contains inpatient and outpatient Vital Signs collected on the date of the Encounter. Date/Time Temperature Pulse Blood Pressure Respiratory Rate SP02 Pain Height Weight Body Mass Index Source Aug 04, 2023 08:55 AM 97.5 77 145/69 16 95 [place] [facility] [place] [facility] Aug 04, 2023 08:52 AM 5 206 29 [place] [facility] [place] [facility] Social History: Smoking Status (Most [...] YRS OR MORE [place] [facility] [place] [facility] Tobacco Use History This section includes a history of the smoking, or tobacco-related health factors, that were collected on or before the date of the Encounter. The data comes from the [place] facility where the Encounter took place. Date/Time Smoking Status/Tobacco Use Comment F acility Aug 04, 2023 09:00 AM VA-TOBACCO QUIT 15 YRS OR MORE [facility] [place] [facility] Aug 05, 2022 11:30 AM VA-TOBACCO NEVER USED [facility] [place] [facility] Aug 22, 2021 11:30 AM [facility] [place] [facility] Apr 29, 2020 10:30 AM VA-TOBACCO NEVER USED [facility] [place] [facility] September 21, 2018 09:39 AM VA-TOBACCO FORMER USER [facility] [place] [facility] September 21, 2018 09:39 AM VA-TOBACCO QUIT 15 YRS OR MORE [facility] [place] [facility] Dec 31, 2017 02:50 PM QUIT TOBACCO USE > 7 YEARS AGO [facility] [place] [facility] Dec 31, 2016 09:33 AM QUIT TOBACCO USE > 7 YEARS AGO [facility] [place] [facility] Dec 31, 2016 09:31 AM QUIT TOBACCO USE 1 -7 YEARS AGO [facility] [place] [facility] Jan 08, 2016 01:57 PM QUIT TOBACCO USE > 7 YEARS AGO [facility] [place] [facility] Nov 15, 2014 10:48 AM QUIT TOBACCO USE > 7 YEARS AGO quit [facility] Advance Directives: All [...] Jan 01, 2005 ADVANCE DIRECTIVE KLAUS PAZ [facility]
--- OUTSIDE RECORDS SUMMARY | 2024-04-21 08:54 | XMS_ITS ---
Author Name Department [facility] [place] Organization Department of [place] Address [address] [place] [address] Care Team Providers Care Addressograph Operator Name Role Phone LINDA PALOMINO Primary [...] PRESCRIPT ION [facility] May 03, 2018 [id number] [phone] Tracey BLISS PATIENT [facility]AL [facility] Jul 01, 2013 [id number] Tracey BLISS PATIENT CIGNA/NALC PREFERRED PROVIDER ORGANIZAT ION (PPO) [facility] Jul 01, 2013 32 [id number] [phone] Tracey BLISS PATIENT CIGNA/NALC PREFERRED PROVIDER ORGANIZAT ION (PPO) [facility] Jan 01, 2011 321 [id number] [phone] Tracey BLISS PATIENT CIGNA/NALC PREFERRED PROVIDER ORGANIZAT ION (PPO) [facility] BENEF Jan 01, 2011 [id number] [phone] Tracey BLISS PATIENT MEDICARE (WNR) MEDICARE (M) PART B Jul 01, 2013 PART B [id number] [phone] Tracey BLISS PATIENT MEDICARE (WNR) MEDICARE (M) PART A Jul 01, 2013 PART A [id number] [phone] Tracey BLISS PATIENT MEDICARE (WNR) MEDICARE (M) PART A Jul 01, 2013 PART A [id number] Tracey BLISS PATIENT [facility] PREFERRED PROVIDER ORGANIZAT ION (PPO) [facility] May 03, 2018 32 [id number] [phone] Tracey BLISS PATIENT [facility] (MED PRIME) PREFERRED PROVIDER ORGANIZAT ION (PPO) [facility] FAMIL Y Jul 01, 2013 322 [id number] Tracey BLISSH PATIENT [facility] (MED PRIME) PREFERRED PROVIDER ORGANIZAT ION (PPO) [facility] Jul 01, 2013 32 [id number] Tracey BLISSH PATIENT [facility] -MCR A ONLY Jul 01, 2013 [id number] Tracey BLISS PATIENT [facility]* Jan 01, 2011 [id number] Tracey BLISS PATIENT Selected Encounter This section includes the information on record at NE for the Encounter. 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 Date/Time Primary/Secondary Diagnosis Diagnosis Name Provider Source Aug 26, 2023 02:55 PM PRIMARY Holland's palsy LINDA PALOMINO [place] [facility] [place] [facility] Aug 26, 2023 02:55 PM SECONDARY Allergic rhinitis, unspecified LINDA PALOMINO [facility] [place] [facility] Aug 26, 2023 02:55 PM SECONDARY Ulcerative colitis, unspecified, without complications LINDA PALOMINO [facility] [place] [facility] Plan of Treatment: Future Appointments (+ 6 months) and Future Tests (+/- 45 days) The Plan of Treatment section includes future care activities for the patient [facility] This section includes future appointments and future orders which are active, pending or scheduled. Future Appointments This section includes appointments that were scheduled to occur 6 months from the date of the Encounter, up to a maximum of 20 appointments. The data comes from all NE treatment facilities. Appointment Date/Time Appointment Type Appointme nt Facility Name September 02, 2023 10:30 AM AMBULATORY - PSYCHIATRY [facility] [place] [facility] September 10, 2023 06:30 AM AMBULATORY - MEDICINE NE [facility] [facility] Oct 08, 2023 01:00 PM AMBULATORY - PSYCHIATRY [facility] [place] [facility] Nov 03, 2023 09:00 AM AMBULATORY - PSYCHIATRY [facility] [place] [facility] Jan 11, 2024 10:00 AM AMBULATORY - PSYCHIATRY [facility] [facility] Jan 17, 2024 10:30 AM AMBULATORY - PSYCHIATRY [facility] [facility] Feb 01, 2024 10:00 AM AMBULATORY - PSYCHIATRY [facility] [place] [facility] Vital Signs: All taken on the encounter date This section contains inpatient and outpatient Vital Signs collected on the date of the Encounter. Date/Time Temperature Pulse Blood Pressure Respiratory Rate SP02 Pain Height Weight Body Mass Index Source Aug 04, 2023 08:55 AM 97.5 77 145/69 16 95 [place] [facility] [facility] Aug 04, 2023 08:52 AM 5 206 29 [place] [facility] [place] [facility] Social History: Smoking Status (Most current) and Tobacco Use (All prior to encounter date) This section includes the most current, and the historical, smoking and tobacco- related health factors from the NE facility where the Encounter took place. Current Smoking Status This section includes the most current smoking, or tobacco-related health factor, from the NE facility where the Encounter took place. Date/Time Current Smoking Status Comment Facil ity Aug 04, 2023 09:00 AM VA-TOBACCO QUIT 15 YRS OR MORE [facility] Tobacco Use History This section includes a history of the smoking, or tobacco-related health factors, that were collected on or before the date of the Encounter. The data comes from the NE facility where the Encounter took place. Date/Time Smoking Status/Tobacco Use Comment F acility Aug 04, 2023 09:00 AM VA-TOBACCO QUIT 15 YRS OR MORE [facility] [place] [facility] Aug 05, 2022 11:30 AM VA-TOBACCO NEVER USED [place] [facility] [place] [facility] Aug 22, 2021 11:30 AM VA-TOBACCO NEVER USED [place] [facility] [facility] Apr 29, 2020 10:30 AM VA-TOBACCO NEVER USED [place] [facility] [facility] September 21, 2018 09:39 AM VA-TOBACCO FORMER USER [place] [facility] [facility] September 21, 2018 09:39 AM VA-TOBACCO QUIT 15 YRS OR MORE [place] [facility] [place] [facility] Dec 31, 2017 02:50 PM QUIT TOBACCO USE > 7 YEARS AGO [place] [facility] [place] [facility] Dec 31, 2016 09:33 AM QUIT TOBACCO USE > 7 YEARS AGO [place] [facility] [place] [facility] Dec 31, 2016 09:31 AM QUIT TOBACCO USE 1 -7 YEARS AGO [place] [facility] [place] [facility] Jan 08, 2016 01:57 PM QUIT TOBACCO USE > 7 YEARS AGO [place] [facility] [place] [facility] Nov 15, 2014 10:48 AM QUIT TOBACCO USE > 7 YEARS AGO quit 1975 [facility] [place] [facility] Advance Directives: All historical and current Section Date Range: From patient's date of to the date document was created. This section includes ALL of a patient's completed or amended NE Advance and Rescinded Directives. The entries below indicate that a directive exists for the patient, but an actual copy is not included with this document. The data comes from all NE facilities. Date Advance Directives Provider Source Jan 01, 2005 ADVANCE DIRECTIVE MCNAIR-WEBSTER,KLAUS ANDR ES [facility] Encounter Notes: All associated encounter notes [...] an Advance Directive on file at this [facility]. No updates are needed at this time. The patient received education about Advance Directives and written notification of his/her rights. Suicide Screen: C-SSRS Screening [place] Suicide Severity Rating Scale (C-SSRS) screener 1. [...] Practical Nurse Signed: 08/04/2023 09:00 HUBER SANCHEZ [facility] Aug 04, 2023 08:14 AM PHYSICIAN NOTE: LOCAL TITLE: NOTE STANDARD TITLE: PHYSICIAN NOTE DATE OF NOTE: AUG 04, 2023@08:14 ENTRY DATE: AUG 04, 2023@08:14:37 AUTHOR: DANIEL PALOMINO EXP COSIGNER: URGENCY: STATUS: COMPLETED HISTORY OF PRESENT ILLNESS: NED Harrington JR BLISS, is a 73 yo WHITE MALE Ulysses who presents at the NE at [facility] CC. bells palsy HPI. vet noted right facial weakness and had eval at [facility] ED and was diagnosed with right facial weakness c/w bells palsy on 07/29. vet here for f/u ED visit and reports slight improvement in past few days on prednisone and valtrex. he also has chronic rhinitis with nasal discharge and finds fluticasone nasal spray helpful. Vet has long hx of ulcerative colitis and needs repeat C scope per Dr Edwardo márquez GI on 09/10/23. vet needs refills of suppositories he uses of his hemorrhoids. No wt loss, no fevers. SH. nonsmoker Active problems - Computerized Problem List is the source for the followin. Allergic Rhinitis ([facility] [id number]) 2. Basal cell carcinoma of skin 3. Hyperlipidemia ([facility] [id number]) 4. Anxiety 5. Hemorrhoid 6. Under care of multiple providers 7. History of surgery 8. Ulcerative colitis 9. Posttraumatic stress disorder 10. Chronic sinusitis 11. Neck pain 12. 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 Pot[place] palsy- R facial weakness 2. rhinitis 3. ulcerative colitis Plan 1. vet will continue prednisone and valtrex/also [facility] month or so due to possible eye irritation 2. f/u with community PCP in 2 weeks/ if worse or not improving vet [facility] [place] 3. refill fluticasone nasal 4. comment added [...] of active outpatient prescriptions dispensed from this NE (local) and dispensed from another NE or DoD facility (remote) as well as [...] MD PHYSICIAN Signed: 08/04/2023 11:13 CHAVEZ PALOMINO [facility]
--- OUTSIDE RECORDS SUMMARY | 2024-04-21 08:54 | XMS_ITS | Encounter Summary ---
Author Name [facility] [place] Address [address] [place] [id number] Care Team Providers Care Recreation Therapy Director Name Role Phone LINDA PALOMINO Primary Care [...] PRESCRIPT ION [facility] May 03, 2018 [id number] Tracey BLISS PATIENT [facility] Jul 01, 2013 [id number] [facility] CIGNA/NALC PREFERRED PROVIDER ORGANIZAT ION (PPO) [facility] Jul 01, 2013 32 [id number] [facility] CIGNA/NALC PREFERRED PROVIDER ORGANIZAT ION (PPO) [facility] Jan 01, 2011 [id number] Tracey BLISS PATIENT CIGNA/NALC PREFERRED PROVIDER ORGANIZAT ION (PPO) [facility] HEALT H BENEF Jan 01, 2011 [id number] Tracey BLISS PATIENT MEDICARE (WNR) MEDICARE (M) PART B Jul 01, 2013 PART B [id number] [phone] Tracey BLISS PATIENT MEDICARE (WNR) MEDICARE (M) PART A Jul 01, 2013 PART A [id number] Tracey BLISS PATIENT MEDICARE (WNR) MEDICARE (M) PART A Jul 01, 2013 PART A [id number] [phone] Tracey BLISS PATIENT [facility] PREFERRED PROVIDER ORGANIZAT ION (PPO) [facility] May 03, 2018 [id number] Tracey BLISS PATIENT [facility] (MED PRIME) PREFERRED PROVIDER ORGANIZAT ION (PPO) [facility] FAMIL Y Jul 01, 2013 [id number] Tracey BLISS PATIENT [facility] (MED PRIME) PREFERRED PROVIDER ORGANIZAT ION (PPO) [facility] Jul 01, 2013 32 [id number] Tracey BLISS PATIENT [facility] -MCR A ONLY Jul 01, 2013 [id number] Tracey BLISS PATIENT [facility]* Jan 01, 2011 [id number] Tracey BLISS PATIENT Selected Encounter This [...] 04, 2023 09:00 AM AMBULATORY - MEDICINE [facility] September 02, 2023 10:30 AM AMBULATORY - PSYCHIATRY [facility] September 10, 2023 06:30 AM AMBULATORY - MEDICINE [facility] Oct 08, 2023 01:00 PM AMBULATORY - PSYCHIATRY [facility] Nov 03, 2023 09:00 AM AMBULATORY PSYCHIATRY [facility] Active, Pending, and Scheduled Orders This section includes a listing of several types of active, pending, and scheduled orders, including clinic medications orders, diagnostic test orders, procedure orders and consult orders; where the start date of the order is 45 days before the date of the Encounter or 45 days after the date of theEncounter. The data comes from all [facility] facilities. Test Date/Time Test Type Test Details Facility Name May 20, 2023 12:00 AM Laboratory - Chemi stry Order LIPID PANEL, NON FASTING BLOOD (SST-SERUM) SP [facility] Lab Results: +/- 30 days of the encounter This section includes the Chemistry and Hematology Lab Results on record with [place] for the patient. Radiology Reports and Pathology Reports are provided separately, in subsequent sections. Lab Results This section contains the Chemistry/Hematology Results that were resulted 30 days before or 30 daysafter the date of the Encounter. Date/Time Source Result Type Result - Unit Interpretation Reference Range Comment Jul 01, 2023 09:01 AM [facility] FENTANYL SCREEN PANEL Specimen Type: URINE [...] Apr 29, 2023 10:52 AM Reporting Lab: [address] [address] Performing Lab: [address] [address] FENTANYL SCREEN NONE-DETECTE D ng/mL Negative: Cutoff = 1.00 ng/mL PH, SERENA 6.0 [pH] 4-10 CREATININE, SERENA 261.96 mg/dL >20 SP.GRAVITY, SERENA 1.023 H 1.00 3-1.02 0 Jul 01, 2023 09:01 AM [facility] OXYCODONE SCREEN PANEL Specimen Type: URINE [...] Apr 29, 2023 10:52 AM Reporting Lab: [address] [address] Performing Lab: [address] [address] OXYCODONE SCREEN NONE-DETECTED None-Detec lidia, Cutoff = 100 ng/mL PH, SERENA 6.0 [pH] 4-10 CREATININE, SERENA 271.02 mg/dL >20 SP.GRAVITY, SERENA 1.023 H 1.00 3-1.02 0 Jul 01, 2023 09:01 AM [facility] OPIATES SCREEN PANEL Specimen Type: URINE [...] Apr 29, 2023 10:52 AM Reporting Lab: [address] [address] Performing Lab: [address] [address] OPIATES SCREEN NONE-DETECTED N one-Detec lidia, Cutoff = 300 ng/mL PH, SERENA 6.0 [pH] 4-10 CREATININE, SERENA 271.02 mg/dL >20 SP.GRAVITY, SERENA 1.023 H 1.00 3-1.02 0 Jul 01, 2023 09:01 AM [facility] ALCOHOL, ETHYL URINE PANEL Specimen Type: [...] Apr 29, 2023 10:52 AM Reporting Lab: [address] [address] Performing Lab: [address] [address] ALCOHOL, ETHYL URINE NONE-DETECTED mg/dL NONE-DETEC LIDIA, cutoff = 10 mg/dL PH, SERENA 6.0 [pH] 4-10 CREATININE, SERENA 271.02 mg/dL >20 SP.GRAVITY, SERENA 1.023 H 1.00 3-1.02 0 Jul 01, 2023 09:01 AM [facility] BENZODIAZEPINES SCREEN PANEL Specimen Type: URINE [...] Apr 29, 2023 10:52 AM Reporting Lab: [address] [address] Performing Lab: [address] [address] BENZODIAZEPINES SCREEN NONE-DETECTED None-Detec lidia, Cutoff = 200 ng/mL PH, SERENA 6.0 [pH] 4-10 CREATININE, SERENA 271.02 mg/dL >20 SP.GRAVITY, SERENA 1.023 H 1.00 3-1.02 0 Jul 01, 2023 09:01 AM [facility] CANNABINOIDS SCREEN PANEL Specimen Type: URINE [...] Apr 29, 2023 10:52 AM Reporting Lab: [address] [address] Performing Lab: [address] [address] CANNABINOIDS SCREEN NONE-DETECTED None-Detec lidia,Cutoff = 50 ng/mL PH, SERENA 6.0 [pH] 4-10 CREATININE, SERENA 271.02 mg/dL >20 SP.GRAVITY, SERENA 1.023 H 1.00 3-1.02 0 Jul 01, 2023 09:01 AM [facility] COCAINE SCREEN PANEL Specimen Type: URINE [...] Apr 29, 2023 10:52 AM Reporting Lab: [facility] [address] [address] Performing [facility]: [facility] [address] [address] COCAINE SCREEN NONE-DETECTED N one-Detec lidia,Cutoff = 300 ng/mL PH, SERENA 6.0 [pH] 4-10 CREATININE, SERENA 271.02 mg/dL >20 SP.GRAVITY, SERENA 1.023 H 1.00 3-1.02 0 Jul 01, 2023 08:52 AM [facility] PSA Specimen Type: SERUM No comment entered. Ordering Provider: LINDA PALOMINO Report Released Date/Time: May 20, 2023 10:17 AM Reporting Lab: [address] [address] Performing Lab: [facility] [address] PSA 3.88 ng/mL 0.00-4.00 Jul 01, 2023 08:52 AM [facility] IRON & TIBC PANEL Specimen Type: SERUM No comment entered. Ordering Provider: LINDA PALOMINO Report Released Date/Time: May 20, 2023 10:17 AM Reporting Lab: [address] [address] Performing Lab: [facility] [address] [address] TIBC 312 ug/dL 204-475 IRON 126 ug/dL 40-160 Transferrin Saturation 40.4 20.0-50.0 Jul 01, 2023 08:52 AM [facility] FERRITIN Specimen Type: SERUM No comment entered. Ordering Provider: LINDA PALOMINO Report Released Date/Time: May 20, 2023 10:17 AM Reporting Lab: [address] [address] Performing Lab: [facility] [place] [facility] [address] [address] FERRITIN 169 ng/mL 20-300 Jul 01, 2023 08:52 AM [facility] LIPID PANEL, NON FASTING Specimen Type: SERUM No comment entered. Ordering Provider: LINDA PALOMINO Report Released Date/Time: May 20, 2023 10:17 AM Reporting Lab: [facility] [place] [facility] [address] [address] Performing Lab: [facility] [address] [address] CHOLESTEROL 198 mg/dL TRIGLYCERIDE 82 mg/dL 0-150 LDL calculated 140 mg/dL H 0-129 CHOL/HDL 4.7 HDL CHOLESTEROL 42 mg/dL 40-60 Jul 01, 2023 08:52 AM [facility] HEMOGLOBIN A1C PANEL Specimen Type: BLOOD [...] May 20, 2023 10:17 AM Reporting Lab: [facility] [address] [address] Performing Lab: [facility] [address] [address] HEMOGLOBIN A1C 5.6 4.0-5.6 Jul 01, 2023 08:52 AM [facility] TSH Specimen Type: SERUM No comment entered. Ordering Provider: LINDA PALOMINO Report Released Date/Time: May 20, 2023 10:17 AM Reporting Lab: [facility]N [facility] [address] [address] Performing Lab: [facility] [address] [address] TSH 1.73 u[IU]/mL 0.35-5.00 Jul 01, 2023 08:52 AM [facility] BASIC METABOLIC PANEL (non-fasting) Specimen Type: SERUM No comment entered. Ordering Provider: LINDA PALOMINO Report Released Date/Time: May 20, 2023 10:17 AM Reporting Lab: [address] [address] Performing Lab: [address] [address] UREA NITROGEN 19 mg/dL 7-25 GLUCOSE 99 mg/dL 65-100 SODIUM 142 mmol/L 135-145 POTASSIUM 4.0 mmol/L 3.5-5.0 CHLORIDE 107 mmol/L 100-110 CO2 27 meq/L 20-30 CREATININE, Serum 1.08 mg/dL 0.50-1.40 eGFR(CKD-EPI 2020) 72 mL/min >60 Jul 01, 2023 08:52 AM [facility] LIVER FUNCTION Specimen Type: SERUM No comment entered. Ordering Provider: LINDA PALOMINO Report Released Date/Time: May 20, 2023 10:17 AM Reporting Lab: [address] [address] Performing Lab: [address] [address] PROTEIN,TOTAL 7.3 g/dL 6.0-8.3 ALBUMIN 3.9 g/dL 3.5-5.0 ALKALINE PHOSPHATASE 52 U/L 40-150 AST 18 U/L 5-34 ALT 17 U/L BILIRUBIN, TOTAL 0.7 mg/dL 0.2-1.2 Jul 01, 2023 08:52 AM [facility] CBC AND DIFF (AUTO) Specimen Type: BLOOD No comment entered. Ordering Provider: LINDA PALOMINO Report Released Date/Time: May 20, 2023 10:17 AM Reporting Lab: [address] [address] Performing Lab: [facility] [address] [address] WBC 4.17 10*3/uL L 4.50-11.00 RBC 4.71 10*6/uL 4.23-5.66 HGB 14.4 g/dL 12.8-17 HCT 43.4 39.2-50.4 MCV 92.1 fL 82-99 MCHC 33.2 g/dL 30.8-35.1 PLT 254 10*3/uL 140-360 RDW-CV 12.3 12.0-16.0 Izard, Abs 0.42 10*3/uL 0.30-1.10 MCH 30.6 pg 26.2-32.6 Neut % 59.8 43.7-75.8 Lymph % 28.3 14.0-42.3 Izard % 10.1 5.1-13.7 Eos % 1.4 0.4-6.8 [...] 05, 2022 11:30 AM VA-TOBACCO NEVER USED [facility] Tobacco Use History This section includes a history of the smoking, or tobacco-related health factors, that were collected on or before the date of the Encounter. The data comes from the [place] facility where the Encounter took place. Date/Time Smoking Status/Tobacco Use Comment Len kiran Aug 22, 2021 11:30 AM VA-TOBACCO NEVER USED [facility] [place] [facility] Apr 29, 2020 10:30 AM VA-TOBACCO NEVER USED [facility] [place] [facility] September 21, 2018 09:39 AM VA-TOBACCO FORMER USER [place] [facility] [facility] September 21, 2018 09:39 AM VA-TOBACCO QUIT 15 YRS OR MORE [facility] Dec 31, 2017 02:50 PM QUIT TOBACCO USE > 7 YEARS AGO [place] [facility] [facility] Dec 31, 2016 09:33 AM QUIT TOBACCO USE > 7 YEARS AGO [place] [facility] Dec 31, 2016 09:31 AM QUIT TOBACCO USE 1 -7 YEARS AGO [facility] Jan 08, 2016 01:57 PM QUIT TOBACCO USE > 7 YEARS AGO [facility] Nov 15, 2014 10:48 AM QUIT TOBACCO USE > 7 YEARS AGO quit 1975 [facility] Advance Directives: All historical and current [...] 01, 2005 ADVANCE DIRECTIVE KLAUS PAZ ES [facility] Encounter Notes: All associated encounter notes [...] REQUIRED Electronically Filed: 06/29/2023 by: BROOKLYN AQUINO SUPERINTENDENT DRILLING BROOKLYN AQUINO [facility]
--- OUTSIDE RECORDS SUMMARY | 2024-04-21 08:54 | XMS_ITS ---
Author Name [facility] [place] Address [address] [place] [address] Care Team Providers Care Radio News Writer Name Role Phone LINDA PALOMINO Primary Care [...] Relationship to Policy Banegas [place]EMARK PRESCRIPT ION [facility] May 03, 2018 [id number] [phone] Tracey BLISS PATIENT [facility] Jul 01, 2013 322 [id number] [facility] CIGNA/NALC PREFERRED PROVIDER ORGANIZAT ION (PPO) [facility] Jul 01, 2013 32 [id number] [facility] CIGNA/NALC PREFERRED PROVIDER ORGANIZAT ION (PPO) [facility] Jan 01, 2011 [id number] Tracey BLISS PATIENT CIGNA/NALC PREFERRED PROVIDER ORGANIZAT ION (PPO) [facility] HEALT H BENEF Jan 01, 2011 [id number] Tracey BLISS PATIENT MEDICARE (WNR) MEDICARE (M) PART B Jul 01, 2013 PART B [id number] Tracey BLISS PATIENT MEDICARE (WNR) MEDICARE (M) PART A Jul 01, 2013 PART A [id number] Tracey BLISS PATIENT MEDICARE (WNR) MEDICARE (M) PART A Jul 01, 2013 PART A [id number] Tracey BLISS PATIENT [facility] PREFERRED PROVIDER ORGANIZAT ION (PPO) [facility] May 03, 2018 32 [id number] Tracey BLISS PATIENT [facility] (MED PRIME) PREFERRED PROVIDER ORGANIZAT ION (PPO) [facility] FAMIL Y Jul 01, 2013 [id number] Tracey BLISS PATIENT [facility] (MED PRIME) PREFERRED PROVIDER ORGANIZAT ION (PPO) [facility] Jul 01, 2013 32 [id number] Tracey BLISS PATIENT [facility] -MCR A ONLY Jul 01, 2013 [id number] Tracey BLISS PATIENT [facility]* Jan 01, 2011 [id number] Tracey BLISS PATIENT Selected Encounter This section includes the information on record at [place] for the Encounter. Date/Time Encounter Type Encounter [...] 20 appointments. The data comes from all [place] treatment facilities. Appointment Date/Time Appointment Type Appointme nt Facility Name Oct 08, 2023 01:00 PM AMBULATORY - PS[facility]IATRY [facility] [place] [facility] Nov 03, 2023 09:00 AM AMBULATORY - PSYCHIATRY [facility] [place] [facility] Jan 11, 2024 10:00 AM AMBULATORY - PS[facility]CHIATRY [facility] [place] [facility] Jan 17, 2024 10:30 AM AMBULATORY - PSYCHIATRY [facility] [place] [facility] Feb 01, 2024 10:00 AM AMBULATORY - PSYCHIATRY [facility] [place] [facility] Feb 09, 2024 10:00 AM AMBULATORY - MEDICINE [facility] [place] [facility] Feb 11, 2024 10:45 AM AMBULATORY - NONE [facility] [place] [facility] Feb 16, 2024 11:30 AM AMBULATORY - NONE [facility] [place] [facility] Feb 22, 2024 01:45 PM AMBULATORY - MEDICINE [facility] [place] [facility] Social History: Smoking Status (Most current) and Tobacco Use (All prior to encounter date) This section includes the most current, and the historical, smoking and tobacco- related health factors from the [place] facility where the Encounter took place. Current Smoking Status This section includes the most current smoking, or tobacco-related health factor, from the [place] facility where the Encounter took place. Date/Time Current Smoking Status Comment Nora mclaughlin Aug 04, 2023 09:00 AM VA-TOBACCO FORMER USER [place] [facility] [place] [facility] Tobacco Use History This section includes a history of the smoking, or tobacco-related health factors, that were collected on or before the date of the Encounter. The data comes from the [place] facility where the Encounter took place. Date/Time Smoking Status/Tobacco Use Comment F acility Aug 04, 2023 09:00 AM VA-TOBACCO QUIT 15 YRS OR MORE [facility] [place] [facility] Aug 05, 2022 11:30 AM VA-TOBACCO NEVER USED [facility] [place] [facility] Aug 22, 2021 11:30 AM VA-TOBACCO NEVER USED [facility] [place] [facility] Apr 29, 2020 10:30 AM VA-TOBACCO NEVER USED [facility] [place] [facility] September 21, 2018 09:39 AM VA-TOBACCO [facility] September 21, 2018 09:39 AM VA-TOBACCO QUIT 15 YRS OR MORE [facility] Dec 31, 2017 02:50 PM QUIT TOBACCO USE > 7 YEARS AGO [facility] Dec 31, 2016 09:33 AM QUIT TOBACCO USE > 7 YEARS AGO [facility] Dec 31, 2016 09:31 AM QUIT TOBACCO USE 1 -7 YEARS AGO [facility] Jan 08, 2016 01:57 PM QUIT TOBACCO USE > 7 YEARS AGO [facility] Nov 15, 2014 10:48 AM QUIT TOBACCO USE > 7 YEARS AGO quit 1975 [facility] Advance Directives: All historical and current Section Date Range: From patient's date of to the date document was created. This section includes ALL of a patient's completed or amended [place] Advance and Rescinded Directives. The entries below indicate that a directive exists for the patient, but an actual copy is not included with this document. The data comes from all [place] facilities. Date Advance Directives Provider Source Jan 01, 2005 ADVANCE DIRECTIVE KLAUS PAZ [facility] Encounter Notes: All associated encounter notes This section contains the clinical notes associated to the Encounter. Date/Time Encounter Note(s) Provider Source September 10, 2023 12:00 PM NONVA CONSULT: LOCAL TITLE: COMMUNITY CARE-CONSULT RESULT NOTE STANDARD TITLE: NONVA CONSULT DATE OF NOTE: SEPTEMBER 10, 2023@12:00 ENTRY DATE: SEPTEMBER 23, 2023@10:04:44 AUTHOR: MARYANA MENA EXP COSIGNER: URGENCY: STATUS: COMPLETED VistA Imaging - Scanned Document [facility] CTR-OPERATIVE NOTES SCANNED DOCUMENT SIGNATURE NOT REQUIRED Electronically Filed: 09/23/2023 by: MARYANA MENA ENGINE MECHANIC MARYANA MENA [facility]
--- OUTSIDE RECORDS SUMMARY | 2024-04-21 08:54 | XMS_ITS | Encounter Summary ---
Author Name [place] Address [address] [place] [address] Care Team Providers Care Regulatory Affairs Assistant Name Role Phone LINDA PALOMINO Primary Care [...] PRESCRIPT ION [facility] May 03, 2018 [id number] [phone] Tracey BLISS PATIENT [facility] Jul 01, 2013 [id number] Tracey BLISS PATIENT [employer]IG[employer]/NALC PREFERRED PROVIDER ORGANIZAT ION (PPO) [facility] Jul 01, 2013 32 [id number] [phone] Tracey BLISS PATIENT [employer] PREFERRED PROVIDER ORGANIZAT ION (PPO) [facility] Jan 01, 2011 [id number] [phone] Tracey BLISS PATIENT [employer] PREFERRED PROVIDER ORGANIZAT ION (PPO) [facility] HEALT H BENEF Jan 01, 2011 [id number] [phone] Tracey BLISS PATIENT MEDICARE (WNR) MEDICARE (M) PART B Jul 01, 2013 PART B [id number] [phone] Tracey BLISS PATIENT MEDICARE (WNR) MEDICARE (M) PART A Jul 01, 2013 PART A [id number] Tracey BLISS PATIENT MEDICARE (WNR) MEDICARE (M) PART A Jul 01, 2013 PART A [id number] [phone] Tracey BLISS PATIENT [facility] PREFERRED PROVIDER ORGANIZAT ION (PPO) [facility] May 03, 2018 32 [id number] [phone] Tracey BLISS PATIENT [facility] (MED PRIME) PREFERRED PROVIDER ORGANIZAT ION (PPO) [facility] FAM[facility] Jul 01, 2013 [id number] Tracey BLISS PATIENT [facility] (MED PRIME) PREFERRED PROVIDER ORGANIZAT ION (PPO) [facility] Jul 01, 2013 32 [id number] Tracey BLISS PATIENT [facility] -MCR A ONLY Jul 01, 2013 [id number] Tracey BLISS PATIENT [facility]* Jan 01, 2011 [id number] Tracey BLISS PATIENT Selected Encounter This section includes the information on record at [place] for the Encounter. Date/Time Encounter Type Encounter Description Reason Pro vider Source Jul 21, 2023 12:36 PM Outpatient Encounter ADMIN PAT ACTIVTIES (MASNONCT) IHE Encounter Template Text not used by [place] Plan of Treatment: Future Appointments (+ 6 [...] 04, 2023 09:00 AM AMBULATORY - [place]ICINE [place] [facility] September 02, 2023 10:30 AM AMBULATORY - [place]CHIATRY [place] [facility] September 10, 2023 06:30 AM AMBULATORY - [facility]ICINE [facility] Oct 08, 2023 01:00 PM AMBULATORY - [facility] Nov 03, 2023 09:00 AM AMBULATORY - [facility]CHIATRY [facility] Jan 11, 2024 10:00 AM AMBULATORY - [facility]CHIATRY [facility] Jan 17, 2024 10:30 AM AMBULAT[facility] - [facility] [place] [facility] Lab Results: +/- 30 days of [...] Range Comment Jul 01, 2023 09:01 AM [facility] OPIATES SCREEN PANEL Specimen Type: URINE [...] Apr 29, 2023 10:52 AM Reporting Lab: [facility] [address] [facility] [address] Performing Lab: [address] [address] OPIATES SCREEN NONE-DETECTED N one-Detec lidia, Cutoff = 300 ng/mL PH, SERENA 6.0 [pH] 4-10 CREATININE, SERENA 271.02 mg/dL >20 SP.GRAVITY, SERENA 1.023 H 1.00 3-1.02 0 Jul 01, 2023 09:01 AM [facility] FENTANYL SCREEN PANEL Specimen Type: URINE [...] 29, 2023 10:52 AM Reporting Lab: [address] [address] Performing Lab: [address] [address] FENTANYL SCREEN NONE-DETECTE D ng/mL Negative: Cutoff = 1.00 ng/mL PH, SERENA 6.0 [pH] 4-10 CREATININE, SERENA 261.96 mg/dL >20 SP.GRAVITY, SERENA 1.023 H 1.00 3-1.02 0 Jul 01, 2023 09:01 AM [facility] ALCOHOL, ETHYL URINE PANEL Specimen Type: [...] 29, 2023 10:52 AM Reporting Lab: [address] [address] Performing Lab: [address] [address] ALCOHOL, ETHYL URINE NONE-DETECTED mg/dL NONE-DETEC LIDIA, cutoff = 10 mg/dL PH, SERENA 6.0 [pH] 4-10 CREATININE, SERENA 271.02 mg/dL >20 SP.GRAVITY, SERENA 1.023 H 1.00 3-1.02 0 Jul 01, 2023 09:01 AM [facility] BENZODIAZEPINES SCREEN PANEL Specimen Type: URINE [...] 29, 2023 10:52 AM Reporting Lab: [address] [address] Performing Lab: [address] [address] BENZODIAZEPINES SCREEN NONE-DETECTED None-Detec lidia, Cutoff = 200 ng/mL PH, SERENA 6.0 [pH] 4-10 CREATININE, SERENA 271.02 mg/dL >20 SP.GRAVITY, SERENA 1.023 H 1.00 3-1.02 0 Jul 01, 2023 09:01 AM [facility] CANNABINOIDS SCREEN PANEL Specimen Type: URINE [...] 29, 2023 10:52 AM Reporting Lab: [address] [address] Performing Lab: [address] [address] CANNABINOIDS SCREEN NONE-DETECTED None-Detec lidia,Cutoff = 50 ng/mL PH, SERENA 6.0 [pH] 4-10 CREATININE, SERENA 271.02 mg/dL >20 SP.GRAVITY, SERENA 1.023 H 1.00 3-1.02 0 Jul 01, 2023 09:01 AM [facility] OXYCODONE SCREEN PANEL Specimen Type: URINE [...] 29, 2023 10:52 AM Reporting Lab: [address] [address] Performing Lab: [address] [address] OXYCODONE SCREEN NONE-DETECTED None-Detec lidia, Cutoff = 100 ng/mL PH, SERENA 6.0 [pH] 4-10 CREATININE, SERENA 271.02 mg/dL >20 SP.GRAVITY, SERENA 1.023 H 1.00 3-1.02 0 Jul 01, 2023 09:01 AM [facility] COCAINE SCREEN PANEL Specimen Type: URINE [...] 29, 2023 10:52 AM Reporting Lab: [address] [address] Performing Lab: [address] [place] [address] COCAINE SCREEN NONE-DETECTED N one-Detec lidia,Cutoff = 300 ng/mL PH, SERENA 6.0 [pH] 4-10 CREATININE, SERENA 271.02 mg/dL >20 SP.GRAVITY, SERENA 1.023 H 1.00 3-1.02 0 Jul 01, 2023 08:52 AM [facility] PSA Specimen Type: SERUM No comment entered. Ordering Provider: LINDA PALOMINO Report Released Date/Time: May 20, 2023 10:17 AM Reporting Lab: [address] [address] Performing Lab: [address] [address] PSA 3.88 ng/mL 0.00-4.00 Jul 01, 2023 08:52 AM [facility] FERRITIN Specimen Type: SERUM No comment entered. Ordering Provider: LINDA PALOMINO Report Released Date/Time: May 20, 2023 10:17 AM Reporting Lab: [address] [address] Performing Lab: [address] [address] FERRITIN 169 ng/mL 20-300 Jul 01, 2023 08:52 AM [facility] IRON & TIBC PANEL Specimen Type: SERUM No comment entered. Ordering Provider: LINDA PALOMINO Report Released Date/Time: May 20, 2023 10:17 AM Reporting Lab: [address] [address] Performing Lab: [address] [address] TIBC 312 ug/dL 204-475 IRON 126 ug/dL 40-160 Transferrin Saturation 40.4 20.0-50.0 Jul 01, 2023 08:52 AM [facility] HEMOGLOBIN A1C PANEL Specimen Type: BLOOD [...] May 20, 2023 10:17 AM Reporting Lab: [facility] [address] [facility] [address] Performing Lab: [facility] [address] HEMOGLOBIN A1C 5.6 4.0-5.6 Jul 01, 2023 08:52 AM [facility] TSH Specimen Type: SERUM No comment entered. Ordering Provider: LINDA PALOMINO Report Released Date/Time: May 20, 2023 10:17 AM Reporting Lab: [facility] [address] [facility] [address] Performing Lab: [facility] [place] [facility] [address] TSH 1.73 u[IU]/mL 0.35-5.00 Jul 01, 2023 08:52 AM [facility] BASIC METABOLIC PANEL (non-fasting) Specimen Type: SERUM No comment entered. Ordering Provider: LINDA PALOMINO Report Released Date/Time: May 20, 2023 10:17 AM Reporting Lab: [facility] [place] [address] [facility] [address] Performing Lab: [facility] [address] UREA NITROGEN 19 mg/dL 7-25 GLUCOSE 99 mg/dL 65-100 SODIUM 142 mmol/L 135-145 POTASSIUM 4.0 mmol/L 3.5-5.0 CHLORIDE 107 mmol/L 100-110 CO2 27 meq/L 20-30 CREATININE, Serum 1.08 mg/dL 0.50-1.40 eGFR(CKD-EPI 2020) 72 mL/min >60 Jul 01, 2023 08:52 AM [facility] LIVER FUNCTION Specimen Type: SERUM No comment entered. Ordering Provider: LINDA PALOMINO Report Released Date/Time: May 20, 2023 10:17 AM Reporting Lab: [facility] [address] [facility] [address] Performing Lab: [facility] [address] [facility] [address] PROTEIN,TOTAL 7.3 g/dL 6.0-8.3 ALBUMIN 3.9 g/dL 3.5-5.0 ALKALINE PHOSPHATASE 52 U/L 40-150 AST 18 U/L 5-34 ALT 17 U/L BILIRUBIN, TOTAL 0.7 mg/dL 0.2-1.2 Jul 01, 2023 08:52 AM [facility] LIPID PANEL, NON FASTING Specimen Type: SERUM No comment entered. Ordering Provider: LINDA PALOMINO Report Released Date/Time: May 20, 2023 10:17 AM Reporting Lab: [facility] [address] [facility] [address] Performing Lab: [facility] [address] [facility] [address] CHOLESTEROL 198 mg/dL TRIGLYCERIDE 82 mg/dL 0-150 LDL calculated 140 mg/dL H 0-129 CHOL/HDL 4.7 HDL CHOLESTEROL 42 mg/dL 40-60 Jul 01, 2023 08:52 AM [facility] CBC AND DIFF (AUTO) Specimen Type: BLOOD No comment entered. Ordering Provider: LINDA PALOMINO Report Released Date/Time: May 20, 2023 10:17 AM Reporting Lab: [facility] [address] [facility] [address] Performing Lab: [address] [address] WBC 4.17 10*3/uL L 4.50-11.00 RBC 4.71 10*6/uL 4.23-5.66 HGB 14.4 g/dL 12.8-17 HCT 43.4 39.2-50.4 MCV 92.1 fL 82-99 MCHC 33.2 g/dL 30.8-35.1 PLT 254 10*3/uL 140-360 RDW-CV 12.3 12.0-16.0 [place], Abs 0.42 10*3/uL 0.30-1.10 MCH 30.6 pg 26.2-32.6 Neut % 59.8 43.7-75.8 Lymph % 28.3 14.0-42.3 [place] % 10.1 5.1-13.7 Eos % 1.4 0.4-6.8 [...] 05, 2022 11:30 AM VA-TOBACCO NEVER USED [facility] Tobacco Use History This section includes a history of the smoking, or tobacco-related health factors, that were collected on or before the date of the Encounter. The data comes from the [place] facility where the Encounter took place. Date/Time Smoking Status/Tobacco Use Comment Len kiran Aug 22, 2021 11:30 AM VA-TOBACCO NEVER USED [place] [facility] Apr 29, 2020 10:30 AM VA-TOBACCO NEVER USED [place] CN[place] [facility] September 21, 2018 09:39 AM VA-TOBACCO FORMER USER [place] [facility] September 21, 2018 09:39 AM VA-TOBACCO QUIT 15 YRS OR MORE [facility] Dec 31, 2017 02:50 PM QUIT TOBACCO USE > 7 YEARS AGO [facility] [place] [facility] Dec 31, 2016 09:33 AM QUIT TOBACCO USE > 7 YEARS AGO [facility] Dec 31, 2016 09:31 AM QUIT TOBACCO USE 1 -7 YEARS AGO [facility] Jan 08, 2016 01:57 PM QUIT TOBACCO USE > 7 YEARS AGO [facility] Nov 15, 2014 10:48 AM QUIT TOBACCO USE > 7 YEARS AGO quit 1975 [facility] Advance Directives: All historical and [...] 01, 2005 ADVANCE DIRECTIVE KLAUS PAZ ES [facility] Encounter Notes: All associated encounter [...] Patient Name: NED BLISS Patient Primary Phone: [phone] Patient Primary Address: [address] [place] [address] Patient : 1950 Patient Age: 72 Caller/Recipient [...] number is, and his fax number is [phone]. Please call me back to further discuss, thank you.'' /darcy/ SHAGGY FOSTER Signed: 07/21/2023 12:36 Receipt Acknowledged By: 07/21/2023 13:32 /darcy/ JEMAL MCKENNA Advanced Commercial Account Manager 07/21/2023 13:24 /moe Cho RN Primary Care Staff Nurse 07/21/2023 ADDENDUM STATUS: COMPLETED RC to Vet at listed number- labs didnt get faxed previsoulsy and so were done today. Confirmed they have been received and a hard copy will be mailed to Vet. /moe Cho RN Primary Care Staff Nurse Signed: 07/21/2023 13:22 SHAGGY FOSTER [place] CNTRL W[place] [facility]
--- OUTSIDE RECORDS SUMMARY | 2024-04-21 08:54 | XMS_ITS | Encounter Summary ---
Author Name Department of Veter[place] Organization [place] Address [address] [place] [address] Care Team Providers Care Groundwater Programs Director Name Role Phone LINDA PALOMINO Primary [...] PRESCRIPT ION [facility] May 03, 2018 [id number] Tracey BLISS PATIENT [facility] Jul 01, 2013 [id number] Tracey BLISS PATIENT [employer]NA[employer] PREFERRED PROVIDER ORGANIZAT ION (PPO) [facility] Jul 01, 2013 32 [id number] Tracey BLISS PATIENT [facility] PREFERRED PROVIDER ORGANIZAT ION (PPO) [facility] Jan 01, 2011 [id number] Tracey BLISSEP PATIENT [employer] PREFERRED PROVIDER ORGANIZAT ION (PPO) [facility] HEALT H BENEF IT Jan 01, 2011 [id number] Tracey BLISS PATIENT MEDICARE (WNR) MEDICARE (M) PART B Jul 01, 2013 PART B [id number] Tracey BLISS PATIENT MEDICARE (WNR) MEDICARE (M) PART A Jul 01, 2013 PART A [id number] [phone] Tracey BLISS PATIENT MEDICARE (WNR) MEDICARE (M) PART A Jul 01, 2013 PART A [id number] Tracey BLISSH PATIENT [facility] PREFERRED PROVIDER ORGANIZAT ION (PPO) [facility] May 03, 2018 32 [id number] Tracey BLISS PATIENT [facility] (MED PRIME) PREFERRED PROVIDER ORGANIZAT ION (PPO) [facility] FAMIL Y Jul 01, 2013 [id number] Tracey BLISSH PATIENT [facility] (MED PRIME) PREFERRED PROVIDER ORGANIZAT ION (PPO) [facility] Jul 01, 2013 32 [id number] Tracey BLISS PATIENT [facility] -MCR A ONLY Jul 01, 2013 [id number] Tracey BLISS PATIENT [facility]* Jan 01, 2011 [id number] Tracey BLISS PATIENT Selected Encounter This section includes the information on record at [place] for the Encounter. Date/Time Encounter Type Encounter Description Reason Provider Source September 02, 2023 10:30 AM PSYTX W PT W E/M 30 [facility] IND ICD-10-CM F41.9 Anxiety disorder, unspecified DANIELLE ALEMAN E Encounter Template Text not used by ME Assessments - Encounter Diagnoses This section includes the primary and secondary diagnoses documented for the Encounter. Date/Time Primary/Secondary Diagnosis Diagnosis Name Provider Source September 02, 2023 02:30 PM PRIMARY Anxiety disorder, unspecified DANIELLE ALEMAN [place] [facility] September 02, 2023 02:30 PM SECONDARY Post-traumatic stress disorder, chronic ASH,DANIELLE A Chaitanya [facility] Plan of Treatment: Future Appointments (+ 6 months) and Future Tests (+/- 45 days) The Plan of Treatment section includes future care activities for the patient from all [place] treatmentfacilities. This section includes future appointments and future orders which are active, pending or scheduled. Future Appointments This section includes appointments that were scheduled to occur 6 months from the date of the Encounter, up to a maximum of 20 appointments. The data comes from all [place] treatment facilities. Appointment Date/Time Appointment Type Appointme nt Facility Name September 10, 2023 06:30 AM AMBULATORY - MEDICINE [place] C [place]L [place] [facility] Oct 08, 2023 01:00 PM [facility] Nov 03, 2023 09:00 AM AMBULAT[facility] [place] [facility] Jan 11, 2024 10:00 AM AMBULAT[facility] [place] [facility] Jan 17, 2024 10:30 AM AMBULAT[facility] [place] [facility] Feb 01, 2024 10:00 AM AMBULATORY - [facility]IATRY [facility] [place] [facility] Feb 09, 2024 10:00 AM AMBULATORY - MEDICINE [facility] NTRL WSTRN [facility] Feb 11, 2024 10:45 AM AMBULATORY - NONE [facility] [place] [facility] Feb 16, 2024 11:30 AM AMBULATORY - NONE [facility] [place] [facility] Feb 22, 2024 01:45 PM AMBULATORY - MEDICINE [facility] Social History: Smoking Status (Most current) and Tobacco Use (All prior to encounter date) This section includes the most current, and the historical, smoking and tobacco- related health factors from the [facility] facility where the Encounter took place. Current Smoking Status This section includes the most current smoking, or tobacco-related health factor, from the [place] facility where the Encounter took place. Date/Time Current Smoking Status Comment Nora mclaughlin Aug 04, 2023 09:00 AM VA-TOBACCO [facility]ER [facility] Tobacco Use History This section includes a history of the smoking, or tobacco-related health factors, that were collected on or before the date of the Encounter. The data comes from the [place] facility where the Encounter took place. Date/Time Smoking Status/Tobacco Use Comment F acility Aug 04, 2023 09:00 AM VA-TOBACCO QUIT 15 YRS OR MORE [place] [facility] Aug 05, 2022 11:30 AM VA-TOBACCO NEVER USED [place] [facility] Aug 22, 2021 11:30 AM VA-TOBACCO NEVER USED [place] [facility] Apr 29, 2020 10:30 AM VA-TOBACCO NEVER USED [place] [facility] September 21, 2018 09:39 AM VA-TOBACCO FORMER USER [place] [facility] September 21, 2018 09:39 AM VA-TOBACCO QUIT 15 YRS OR MORE [place] [facility] Dec 31, 2017 02:50 PM QUIT TOBACCO USE > 7 YEARS AGO [place] [facility] Dec 31, 2016 09:33 AM QUIT TOBACCO USE > 7 YEARS AGO [place] [facility] Dec 31, 2016 09:31 AM QUIT TOBACCO USE 1 -7 YEARS AGO [place] [facility] Jan 08, 2016 01:57 PM QUIT TOBACCO USE > 7 YEARS AGO [place] [facility] Nov 15, 2014 10:48 AM QUIT TOBACCO USE > 7 YEARS AGO quit 1975 [facility] Advance Directives: All historical and current Section Date Range: From patient's date of to the date document was created. This section includes ALL of a patient's completed or amended [place] Advance and Rescinded Directives. The entries below indicate that a directive exists for the patient, but an actual copy is not included with this document. The data comes from all [place] facilities. Date Advance Directives Provider Source Jan 01, 2005 ADVANCE DIRECTIVE KLAUS PAZ [place] [facility] Encounter Notes: All associated encounter notes This [...] PDMP query was submitted by Cherelle Aleman [facility]. The clinical justification for this PDMP query is to review controlled substances prescribed outside of the [facility], and any additional information that may become available, as an important component of standard clinical care, and in accordance with [facility] policy. Patient information was shared with the PDMP Appriss [place]. Prescription(s) filled outside the VA in the last 90 days are noted. However, they do not raise significant safety concerns and do not influence the treatment plan at this time. muscle relaxants from his outside physician have been ongoing over time. Do not interfere with his low dose benzo so far. /darcy/ CHERELEL ALEMAN RN,MSN,PSYCH N.P., STAFF CLINICAL NURSE SPECIALIST Signed: 09/20/2023 14:17 CHERELLE ALEMAN [place] [facility] [facility] September 02, 2023 08:15 AM CLINICAL NURSE SPECIALIST NOTE: LOCAL TITLE: CLINICAL NURSE SPECIALIST/MENTAL HEALTH STANDARD TITLE: CLINICAL NURSE SPECIALIST NOTE DATE OF NOTE: SEPTEMBER 02, 2023@08:15 ENTRY DATE: SEPTEMBER 02, 2023@08:15:11 AUTHOR: CHERELLE ALEMAN EXP COSIGNER: URGENCY: STATUS: COMPLETED NED BLISS JR, a 73year old WHITE MALE was seen for scheduled follow-up at [facility] for Dx: PTSD Two identifiers used, and full SSN. Again states he has trouble [facility], eventually we were able to connect. Appt [...] followed by optometry and dental at this [facility]. PACT team was changed to #4, Dr Harp. He is also followed in [facility] for dermatology. He has an outside PC as well, so his care is a bit fragmented. It is difficult to get UDS from Vet as he does not often come to care at this [place] due to having an outside PCP. Had [...] med program at least once a year. Balaton had complained about problems with one of [...] for therapy at this point. SUBJECTIVE: The Balaton was seen today for routine follow up; visit lasted for 30 minutes. Balaton reports doing well with current mental health medication, stated he is satisfied with current care. He still has community physician but is also using [facility] for occasional health checks and he did blood screen labs here this year. He comes to [place] once a year to maintain his PACT [...] 30.2 Neut %: 68.0 Lymph %: 20.9 [place]man %: 9.3 Eos %: 1.2 Baso %: 0.4 Neut, Abs: 3.35 Lymph, Abs: 1.03 [place]man, Abs: 0.46 Eos, Abs: 0.06 Baso, Abs: [...] anxious but overall calmer than last visit. gets frustrated if VVC not working or [...] that. As far as meds are concerned, Soledad has been warned previously about danger of [...] to continue the med. Has been on snf benzos over years. Continue education on risks. 2. Appointments reviewed with Bal[place] and labs reviewed briefly as well. 3. soledad was having therapy with Dr. Sanchez but she recently left [place], soledad is unsure what he wants for therapy, had been snf with Dr. Durbin in the past, will [...] of active outpatient prescriptions dispensed from this [place] (local) and dispensed from another [place] or [facility] facility (remote) as well [...] NURSE SPECIALIST Signed: 09/02/2023 15:58 CHERELLE ALEMAN [facility]
--- OUTSIDE RECORDS SUMMARY | 2024-04-21 08:54 | XMS_ITS ---
Author Name [facility] [place] Address [address] [place] [id number] Care Team Providers Care Engineer Steam Name Role Phone LINDA PALOMINO Primary Care [...] Relationship to Policy Banegas CAREMARK PRESCRIPT ION [facility] May 03, 2018 [id number] Tracey BLISS PATIENT [facility] Jul 01, 2013 [id number] [facility] CIGNA/NALC PREFERRED PROVIDER ORGANIZAT ION (PPO) [facility] Jul 01, 2013 32 [id number] [facility] CIGNA/NALC PREFERRED PROVIDER ORGANIZAT ION (PPO) [facility] Jan 01, 2011 [id number] [id number] Tracey BLISS PATIENT CIGNA/NALC PREFERRED PROVIDER ORGANIZAT ION (PPO) [facility] HEALT H BENEF Jan 01, 2011 [id number] Tracey BLISS PATIENT MEDICARE (WNR) MEDICARE (M) PART B Jul 01, 2013 PART B [id number] [phone] Tracey BLISS PATIENT MEDICARE (WNR) MEDICARE (M) PART A Jul 01, 2013 PART A [id number] Tracey BLISS PATIENT MEDICARE (WNR) MEDICARE (M) PART A Jul 01, 2013 PART A [id number] Tracey BLISS PATIENT [facility] PREFERRED PROVIDER ORGANIZAT ION (PPO) [facility] May 03, 2018 32 [id number] Tracey BLISS PATIENT [facility] (MED PRIME) PREFERRED PROVIDER ORGANIZAT ION (PPO) [facility] FAM[facility] Jul 01, 2013 [id number] Tracey BLISS PATIENT [facility] (MED PRIME) PREFERRED PROVIDER ORGANIZAT ION (PPO) [facility] Jul 01, 2013 32 [id number] Tracey BLISS PATIENT [facility] -MCR A ONLY Jul 01, 2013 [id number] Tracey BLISS PATIENT [facility]* Jan 01, 2011 [id number] Tracey BLISS PATIENT Selected Encounter This [...] AMBULATORY - [facility]IATRY [facility] [place] [facility] September 10, 2023 06:30 AM AMBULATORY - MEDICINE [facility] [place] [facility] Oct 08, 2023 01:00 PM AMBULATORY - PSYCHIATRY [facility] [place] [facility] Nov 03, 2023 09:00 AM AMBULATORY - PSYCHIATRY [facility] [place] [facility] Jan 11, 2024 10:00 AM AMBULATORY - PSYCHIATRY [facility] [place] [facility] Jan 17, 2024 10:30 AM AMBULATORY - PSYCHIATRY [facility] [place] [facility] Feb 01, 2024 10:00 AM AMBULATORY - PSYCHIATRY [facility] [place] [facility] Feb 09, 2024 10:00 AM AMBULATORY - MEDICINE [facility] [place] [facility] Feb 11, 2024 10:45 AM AMBULATORY - NONE [facility] [place] [facility] Feb 16, 2024 11:30 AM AMBULATORY - NONE [facility] [place] [facility] Social History: Smoking Status (Most current) and [...] 04, 2023 09:00 AM VA-TOBACCO FORMER USER [place] [facility] [place] [facility] Tobacco Use History This section includes a history of the smoking, or tobacco-related health factors, that were collected on or before the date of the Encounter. The data comes from the [place] facility where the Encounter took place. Date/Time Smoking Status/Tobacco Use Comment F acility Aug 04, 2023 09:00 AM VA-TOBACCO QUIT 15 YRS OR MORE [facility] [place] [facility] Aug 05, 2022 11:30 AM VA-TOBACCO NEVER USED [facility] [place] [facility] Aug 22, 2021 11:30 AM VA-TOBACCO NEVER USED [place] [facility] [place] [facility] Apr 29, 2020 10:30 AM VA-TOBACCO NEVER USED [place] [facility] [place] [facility] September 21, 2018 09:39 AM VA-TOBACCO FORMER USER [place] [facility] [place] [facility] September 21, 2018 09:39 AM VA-TOBACCO QUIT 15 YRS OR MORE [place] [facility] [place] [facility] Dec 31, 2017 02:50 PM QUIT TOBACCO USE > 7 YEARS AGO [place] [facility] [place] [facility] Dec 31, 2016 09:33 AM QUIT TOBACCO USE > 7 YEARS AGO [place] [facility] [place] [facility] Dec 31, 2016 09:31 AM QUIT TOBACCO USE 1 -7 YEARS AGO [place] [facility] [place] [facility] Jan 08, 2016 01:57 PM QUIT TOBACCO USE > 7 YEARS AGO [place] [facility] [facility] Nov 15, 2014 10:48 AM QUIT TOBACCO USE > 7 YEARS AGO [facility] Advance Directives: All historical and [...] 01, 2005 ADVANCE DIRECTIVE [facility] Encounter Notes: All associated encounter notes This section contains the clinical notes associated to the Encounter. Date/Time Encounter Note(s) Provider Source Aug 20, 2023 12:40 PM NONVA NOTE: [facility] TITLE: [facility] PRESENTING CARE COORD PLAN STANDARD TITLE: NONVA NOTE DATE OF NOTE: AUG 20, 2023@12:40 ENTRY DATE: AUG 20, 2023@12:40:38 AUTHOR: CLAUDIO GIL COSIGNER: URGENCY: STATUS: COMPLETED Emergency Notification Intake Date Presenting to the Facility: Jul Method of Contact: Notified from ECR worklist Notification ID: [id number] [facility] Referral #: [id number] [facility] Name: Hospital: [facility] Address: City: [place] State: [place] Zip Code: Phone : Community Facility Point of Contact: Name: Candace Phone: Chief complaint: DROOPY LEFT SIDE OF FACE Primary Diagnosis: Disposition Discharged Date of discharge: Jul Discharge to Comment: ER Only /es/ CLAUDIO MASTERSON Signed: 08/20/2023 12:42 Receipt Acknowledged By: 08/20/2023 16:37 /es/ LINDA PALOMINO MD PHYSICIAN 09/07/2023 07:26 /es/ Rossana Fitzpatrick MSN,RN,[facility] TRANSFER/TRAVELING COORDINATOR 08/20/2023 13:11 /es/ REGI LANG, MSN, RN, CNL PRIMARY CARE TEAM NURSE 08/20/2023 13:01 /es/ Anna Cho, finishing supervisor plastic sheets Staff Nurse CLAUDIO GIL WARDELL
--- OUTSIDE RECORDS SUMMARY | 2024-04-21 08:55 | XMS_ITS | Encounter Summary ---
Author Name [facility] [place] Address [address] [place] [address] Care Team Providers Care System Trainer Name Role Phone LINDA PALOMINO Primary Care [...] to Policy Banegas CAREMARK PRESCRIPT ION [facility] May 03, 2018 [id number] Tracey BLISS PATIENT [facility] Jul 01, 2013 [id number] Tracey BLISS PATIENT CIGNA/NALC PREFERRED PROVIDER ORGANIZAT ION (PPO) [facility] Jul 01, 2013 32 [id number] Tracey BLISS PATIENT CIGNA/NALC PREFERRED PROVIDER ORGANIZAT ION (PPO) [facility] Jan 01, 2011 321 [id number] [phone] Tracey BLISS PATIENT CIGNA/NALC PREFERRED PROVIDER ORGANIZAT ION (PPO) [facility] HEALT H BENEF Jan 01, 2011 [id number] Tracey BLISS PATIENT MEDICARE (WNR) MEDICARE (M) PART B Jul 01, 2013 PART B [id number] [phone] Tracey BLISS PATIENT MEDICARE (WNR) MEDICARE (M) PART A Jul 01, 2013 PART A [id number] Tracey BLISS PATIENT MEDICARE (WNR) MEDICARE (M) PART A Jul 01, 2013 PART A [id number] [phone] Tracey BLISS PATIENT [facility] PREFERRED PROVIDER ORGANIZAT ION (PPO) [facility] May 03, 2018 32 [id number] [phone] Tracey BLISS PATIENT [facility] (MED PRIME) PREFERRED PROVIDER ORGANIZAT ION (PPO) [facility] FAMIL [facility] Jul 01, 2013 [id number] Tracey BLISSH PATIENT [facility] (MED PRIME) PREFERRED PROVIDER ORGANIZAT ION (PPO) [facility] Jul 01, 2013 32 [id number] Trcaey BLISSH PATIENT [facility] -MCR A ONLY Jul 01, 2013 [id number] Tracey BLISSH PATIENT [facility]* Jan 01, 2011 [id number] Tracey BLISS PATIENT Selected Encounter This section includes the information on record at [place] for the Encounter. 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 Date/Time Primary/Secondary Diagnosis Diagnosis Name Provider Source Jan 21, 2024 12:45 PM PRIMARY Holland's palsy ROSENDO CRUZ [place] [facility] [place] [facility] Jan 21, 2024 12:45 PM SECONDARY Post-traumatic stress disorder, chronic ROSENDO CRUZ [place] [facility] [place] [facility] Plan of Treatment: Future Appointments (+ 6 months) and Future Tests (+/- 45 days) The Plan of Treatment section includes future care activities for the patient [facility] This section includes future appointments and future orders which are active, pending or scheduled. Future Appointments This section includes appointments that were scheduled to occur 6 months from the date of the Encounter, up to a maximum of 20 appointments. The data comes from all [place] treatment facilities. Appointment Date/Time Appointment Type Appointme nt Facility Name Jan 17, 2024 10:30 AM AMBULATORY - PSYCHIATRY [facility] [place] [facility] Feb 01, 2024 10:00 AM AMBULATORY - PSYCHIATRY [facility] [place] [facility] Feb 09, 2024 10:00 AM AMBULATORY - MEDICINE [facility] [place] [facility] Feb 11, 2024 10:45 AM AMBULATORY - NONE [facility] [place] [facility] Feb 16, 2024 11:30 AM AMBULATORY - NONE [facility] [place] [facility] Feb 22, 2024 01:45 PM AMBULATORY - MEDICINE [facility] [place] [facility] Mar 24, 2024 11:00 AM AMBULATORY - NONE [facility] [place] [facility] Apr 17, 2024 01:00 PM AMBULATORY - MEDICINE [facility] [place] [facility] May 16, 2024 10:00 AM AMBULATORY - PSYCHIATRY [facility] [place] [facility] May 16, 2024 11:30 AM AMBULATORY - MEDICINE [facility] [place] [facility] May 23, 2024 11:30 AM AMBULATORY - PSYCHIATRY [facility] [place] [facility] May 24, 2024 10:30 AM AMBULATORY - MEDICINE [facility] [place] [facility] May 30, 2024 10:00 AM AMBULATORY - PSYCHIATRY [facility] [place] [facility] Jun 13, 2024 10:00 AM AMBULATORY - PSYCHIATRY [facility] [place] [facility] Jun 27, 2024 10:00 AM AMBULATORY - PSYCHIATRY [facility] [place] [facility] Social History: Smoking Status (Most current) and Tobacco Use (All prior to encounter date) This section includes the most current, and the historical, smoking and tobacco- related health factors from the [place] facility where the Encounter took place. Current Smoking Status This section includes the most current smoking, or tobacco-related health factor, from the [place] facility where the Encounter took place. Date/Time Current Smoking Status Comment Nora ity Aug 04, 2023 09:00 AM VA-TOBACCO QUIT 15 YRS OR MORE [facility] Tobacco Use History This section includes a history of the smoking, or tobacco-related health factors, that were collected on or before the date of the Encounter. The data comes from the [place] facility where the Encounter took place. Date/Time Smoking Status/Tobacco Use Comment F acility Aug 04, 2023 09:00 AM VA-TOBACCO QUIT 15 YRS OR MORE [place] [facility] [place] [facility] Aug 05, 2022 11:30 AM VA-TOBACCO NEVER USED [place] [facility] [place] [facility] Aug 22, 2021 11:30 AM VA-TOBACCO NEVER USED [place] [facility] [place] [facility] Apr 29, 2020 10:30 AM VA-TOBACCO NEVER USED [place] [facility] [place] [facility] September 21, 2018 09:39 AM VA-TOBACCO FORMER USER [place] [facility] [place] [facility] September 21, 2018 09:39 AM VA-TOBACCO QUIT 15 YRS OR MORE [place] [facility] [place] [facility] Dec 31, 2017 02:50 PM QUIT TOBACCO USE > 7 YEARS AGO [facility] [place] [facility] Dec 31, 2016 09:33 AM QUIT TOBACCO USE > 7 YEARS AGO [facility] [place] [facility] Dec 31, 2016 09:31 AM QUIT TOBACCO USE 1 -7 YEARS AGO [place] [facility] [place] [facility] Jan 08, 2016 01:57 PM QUIT TOBACCO USE > 7 YEARS AGO [place] [facility] [place] [facility] Nov 15, 2014 10:48 AM QUIT TOBACCO USE > 7 YEARS AGO quit 1975 [place] [facility] [place] [facility] Advance Directives: All historical and current Section Date Range: From patient's date of to the date document was created. This section includes ALL of a patient's completed or amended [place] Advance and Rescinded Directives. The entries below indicate that a directive exists for the patient, but an actual copy is not included with this document. The data comes from all [place] facilities. Date Advance Directives Provider Source Jan 01, 2005 ADVANCE DIRECTIVE KLAUS PAZ [place] [facility] [place] [facility] Encounter Notes: All associated encounter notes [...] court of law and presented to a data entry associate), and 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 Provided Suicide Prevention Hotline number, and other contact numbers as necessary. VISIT DURATION 45 minutes DIAGNOSES: PTSD [employer] STATEMENT OF GOALS/CONCERNS: We just got back from our cruise [place]. [place] [facility] [place] pictures of [place] [facility] I feel that my [place] Palsy is coming back on my right side...I'm drooling at night. That's how I can tell. It happened around my birthday in July. See I'm wearing a hat - and it says 01/11 with a Lead Php Developer on it? Its a wiliam I give [...] PSYD PSYCHOLOGIST Signed: 01/11/2024 11:03 ROSENDO CRUZ [facility]
--- OUTSIDE RECORDS SUMMARY | 2024-04-21 08:55 | XMS_ITS ---
Author Name [facility] [place] Address [address] [place] [address] Care Team Providers Care Shingler Name Role Phone LINDA PALOMINO Primary Care [...] Relationship to Policy Banegas CAREMARK PRESCRIPT ION [facility] May 03, 2018 [id number] Tracey BLISS PATIENT [facility] MENTAL HEALTH [facility] Jul 01, 2013 [id number] Tracey BLISS PATIENT CIGNA/NALC PREFERRED PROVIDER ORGANIZAT ION (PPO) [facility] Jul 01, 2013 32 [id number] Tracey BLISS PATIENT CIGNA/NALC PREFERRED PROVIDER ORGANIZAT ION (PPO) [facility] Jan 01, 2011 [id number] Tracey BLISS PATIENT CIGNA/NALC PREFERRED PROVIDER ORGANIZAT ION (PPO) [facility] HEALT H BENEF Jan 01, 2011 [id number] Tracey BLISS PATIENT MEDICARE (WNR) MEDICARE (M) PART B Jul 01, 2013 PART B [id number] Tracey BLISS PATIENT MEDICARE (WNR) MEDICARE (M) PART A Jul 01, 2013 PART A [id number] [phone] Tracey BLISS PATIENT MEDICARE (WNR) MEDICARE (M) PART A Jul 01, 2013 PART A [id number] [phone] Tracey BLISS PATIENT [facility] PREFERRED PROVIDER ORGANIZAT ION (PPO) [facility] May 03, 2018 [id number] Tracey BLISS PATIENT [facility] (MED PRIME) PREFERRED PROVIDER ORGANIZAT ION (PPO) [facility] FAM[facility] Jul 01, 2013 [id number] Tracey BLISS PATIENT [facility] (MED PRIME) PREFERRED PROVIDER ORGANIZAT ION (PPO) [facility] Jul 01, 2013 32 [id number] Tracey BLISS PATIENT [facility]AL HE[facility] -MCR A ONLY Jul 01, 2013 [id number] Tracey BLISS PATIENT [facility]* Jan 01, 2011 [id number] Tracey BLISS PATIENT Selected Encounter This section includes the information on record at [place] for the Encounter. Date/Time Encounter Type Encounter Description Reason Pro vider Source Dec 06, 2023 10:30 AM Outpatient Encounter [facility] Encounter Template Text not used by [place] Plan of Treatment: Future Appointments (+ 6 months) and Future Tests (+/- 45 days) The Plan of Treatment section includes future care activities for the patient from all [place] treatmentfacilities. This section includes future appointments and [...] - PSYCHIATRY [facility] [place] [facility] Jan 17, 2024 10:30 AM AMBULATORY - PSYCHIATRY [facility] [place] [facility] Feb 01, 2024 10:00 AM AMBULATORY - PSYCHIATRY [facility] [place] [facility] Feb 09, 2024 10:00 AM AMBULATORY - MEDICINE [place] [facility] [place] [facility] Feb 11, 2024 10:45 AM AMBULATORY - NONE [place] [facility] [place] [facility] Feb 16, 2024 11:30 AM AMBULATORY - NONE [place] [facility] [place] [facility] Feb 22, 2024 01:45 PM AMBULATORY - MEDICINE [facility] [place] [facility] Mar 24, 2024 11:00 AM AMBULATORY - NONE [place] [facility] [place] [facility] Apr 17, 2024 01:00 PM AMBULATORY - MEDICINE [facility] [place] [facility] May 16, 2024 10:00 AM AMBULATORY - PSYCHIATRY [facility] [place] [facility] May 16, 2024 11:30 AM AMBULATORY - MEDICINE [facility] [place] [facility] May 23, 2024 11:30 AM AMBULATORY - PSYCHIATRY [facility] [place] [facility] May 24, 2024 10:30 AM AMBULATORY - MEDICINE [place] C [facility] [place] [facility] May 30, 2024 10:00 AM AMBULATORY - PSYCHIATRY [place] [facility] [place] [facility] Social History: Smoking Status (Most current) [...] VA-TOBACCO FORMER USER [place] [facility] [place] [facility] Tobacco Use History This section includes a history of the smoking, or tobacco-related health factors, that were collected on or before the date of the Encounter. The data comes from the [place] facility where the Encounter took place. Date/Time Smoking Status/Tobacco Use Comment F acility Aug 04, 2023 09:00 AM VA-TOBACCO QUIT 15 YRS OR MORE [place] [facility] [place] [facility] Aug 05, 2022 11:30 AM VA-TOBACCO NEVER USED [place] [facility] [place] [facility] Aug 22, 2021 11:30 AM VA-TOBACCO NEVER USED [place] [facility] [place] [facility] Apr 29, 2020 10:30 AM VA-TOBACCO NEVER USED [place] [facility] [place] [facility] September 21, 2018 09:39 AM VA-TOBACCO FORMER USER [place] [facility] [place] [facility] September 21, 2018 09:39 AM VA-TOBACCO QUIT 15 YRS OR MORE [place] [facility] [place] [facility] Dec 31, 2017 02:50 PM QUIT TOBACCO USE > 7 YEARS AGO [facility] [place] [facility] Dec 31, 2016 09:33 AM QUIT TOBACCO USE > 7 YEARS AGO [place] [facility] [place] [facility] Dec 31, 2016 09:31 AM QUIT TOBACCO USE 1 -7 YEARS AGO [place] [facility] [place] [facility] Jan 08, 2016 01:57 PM QUIT TOBACCO USE > 7 YEARS AGO [place] [facility] [place] [facility] Nov 15, 2014 10:48 AM QUIT TOBACCO USE > 7 YEARS AGO quit 1975 [place] [facility] [place] [facility] Advance Directives: All historical and current Section Date Range: From patient's date of to the date document was created. This section includes ALL of a patient's completed or amended [place] Advance and Rescinded Directives. The entries below indicate that a directive exists for the patient, but an actual copy is not included with this document. The data comes from all [place] facilities. Date Advance Directives Provider Source Jan 01, 2005 ADVANCE DIRECTIVE KLAUS PAZ [place] [facility] Encounter Notes: All associated encounter notes This section contains the clinical notes associated to the Encounter. Date/Time Encounter Note(s) Provider Source Dec 06, 2023 08:34 AM ADMINISTRATIVE NOT E: LOCAL TITLE: ADMINISTRATIVE NOTE STANDARD TITLE: ADMINISTRATIVE NOTE DATE OF NOTE: DEC 06, 2023@08:34 ENTRY DATE: DEC 06, 2023@08:34:49 AUTHOR: HI FOSTER EXP COSIGNER: URGENCY: STATUS: COMPLETED Product/Device Technologist contacted to advise that 12/05 appt has been CX by CL due to provider being unavailable today. Advised provider will contact to r/s. /darcy/ HI FOSTER MSA Electrical Logging Operator Signed: 12/06/2023 08:36 Receipt Acknowledged By: 12/07/2023 16:05 /darcy/ ROSENDO CRUZ PSYD PSYCHOLOGIST HI FOSTER [place] [facility]
--- OUTSIDE RECORDS SUMMARY | 2024-04-21 08:55 | XMS_ITS ---
Author Name [facility] [place] [facility] [place] Organization [facility] [place] Address [address] [place] [id number] Care Team Providers Care Carbon Dioxide Operator Name Role Phone LINDA PALOMINO Primary [...] to Policy Banegas CAREMARK PRESCRIPT ION [facility] May 03, 2018 [id number] Tracey BLISS PATIENT CIGNA BEHAVIORAL HEALTH MENTAL HEALTH [facility] Jul 01, 2013 [id number] Tracey BLISS PATIENT CIGNA/NALC PREFERRED PROVIDER ORGANIZAT ION (PPO) [facility] Jul 01, 2013 32 [id number] Tracey BLISS PATIENT CIGNA/NALC PREFERRED PROVIDER ORGANIZAT ION (PPO) [facility] Jan 01, 2011 [id number] Tracey BLISS PATIENT CIGNA/NALC PREFERRED PROVIDER ORGANIZAT ION (PPO) [facility] HEALT H BENEF Jan 01, 2011 [id number] Tracey BLISS PATIENT MEDICARE (WNR) MEDICARE (M) PART B Jul 01, 2013 PART B [id number] Tracey BLISS PATIENT MEDICARE (WNR) MEDICARE (M) PART A Jul 01, 2013 PART A [id number] [phone] Tracey BLISS PATIENT MEDICARE (WNR) MEDICARE (M) PART A Jul 01, 2013 PART A [id number] Tracey BLISS PATIENT [facility] PREFERRED PROVIDER ORGANIZAT ION (PPO) [facility] May 03, 2018 32 [id number] Tracey BLISS PATIENT [facility] (MED PRIME) PREFERRED PROVIDER ORGANIZAT ION (PPO) [facility] FAMIL Y Jul 01, 2013 [id number] Tracey BLISS PATIENT [facility] (MED PRIME) PREFERRED PROVIDER ORGANIZAT ION (PPO) [facility] Jul 01, 2013 32 [id number] Tracey BLISS PATIENT [facility] MENTAL HEALTH [facility] -MCR A ONLY Jul 01, 2013 [id number] Tracey BLISS PATIENT [facility]* Jan 01, 2011 [id number] Tracey BLISS PATIENT Selected Encounter This section includes the information on record at [place] for the Encounter. Date/Time Encounter Type Encounter Description Reason Pro vider Source September 24, 2023 01:23 PM Outpatient Encounter [facility] Encounter Template Text not used by [place] Plan of Treatment: Future Appointments (+ 6 months) and Future Tests (+/- 45 days) The Plan of Treatment section includes future care activities for the patient from all [place] treatmentfacilities. This section includes future appointments and [...] - [facility] [place] [facility] Nov 03, 2023 09:00 AM AMBULATORY - PS[facility]IATRY [facility] [place] [facility] Jan 11, 2024 10:00 AM AMBULATORY - [facility]RY [facility] [place] [facility] Jan 17, 2024 10:30 AM AMBULATORY - PS[facility]CHIATRY [facility] [place] [facility] Feb 01, 2024 10:00 AM AMBULATORY - PS[facility]CHIATRY [facility] [place] [facility] Feb 09, 2024 10:00 AM AMBULATORY - MEDICINE [facility] [place] [facility] Feb 11, 2024 10:45 AM AMBULATORY - NONE [facility] [place] [facility] Feb 16, 2024 11:30 AM AMBULATORY - NONE [facility] [place] [facility] Feb 22, 2024 01:45 PM AMBULATORY - MEDICINE [facility] [place] [facility] Mar 24, 2024 11:00 AM AMBULATORY - NONE [facility] [place] [facility] Social History: Smoking Status (Most current) and [...] 04, 2023 09:00 AM VA-TOBACCO FORMER USER [place] [facility] [place] [facility] Tobacco Use History This section includes a history of the smoking, or tobacco-related health factors, that were collected on or before the date of the Encounter. The data comes from the [place] facility where the Encounter took place. Date/Time Smoking Status/Tobacco Use Comment F acility Aug 04, 2023 09:00 AM VA-TOBACCO QUIT 15 YRS OR MORE [facility] [place] [facility] Aug 05, 2022 11:30 AM VA-TOBACCO NEVER USED [facility] [place] [facility] Aug 22, 2021 11:30 AM VA-TOBACCO NEVER USED [facility] [place] [facility] Apr 29, 2020 10:30 AM [facility] September 21, 2018 09:39 AM VA-TOBACCO [facility] September 21, 2018 09:39 AM VA-TOBACCO QUIT 15 YRS OR MORE [facility] Dec 31, 2017 02:50 PM QUIT TOBACCO USE > 7 [facility] A[facility] Dec 31, 2016 09:33 AM QUIT TOBACCO USE > 7 [facility] A[facility] Dec 31, 2016 09:31 AM QUIT TOBACCO USE 1 -7 YEARS AGO [facility] Jan 08, 2016 01:57 PM QUIT TOBACCO USE > 7 YEARS AGO [facility] Nov 15, 2014 10:48 AM QUIT TOBACCO USE > 7 YEARS AGO quit 1975 [facility] Advance Directives: All historical and current Section Date Range: From patient's date of to the date document was created. This section includes ALL of a patient's completed or amended [place] Advance and Rescinded Directives. The entries below indicate that a directive exists for the patient, but an actual copy is not included with this document. The data comes from all [place] facilities. Date Advance Directives Provider Source Jan 01, 2005 ADVANCE DIRECTIVE [facility]US [facility]Z [facility] Encounter Notes: All associated encounter notes This section contains the clinical notes associated to the Encounter. Date/Time Encounter Note(s) Provider Source September 24, 2023 01:23 PM ADMINISTRATIVE NOT E: LOCAL TITLE: ADMINISTRATIVE NOTE STANDARD TITLE: ADMINISTRATIVE NOTE DATE OF NOTE: SEPTEMBER 24, 2023@13:23 ENTRY DATE: SEPTEMBER 24, 2023@13:24:01 AUTHOR: GRANT LOMBARDO COSIGNER: URGENCY: STATUS: COMPLETED Asbestos Worker received a call from . received a letter about consult on 09/27 being canceled by clinic was made aware by phone from consult information clerk cashier. Did tell that consult information clerk cashier is away and he stated that he would wait for the information clerk cashier to come back to be rescheduled. /darcy/ GRANT LOMBARDO BURLAP WORKER Signed: 09/24/2023 13:26 Receipt Acknowledged By: 09/28/2023 10:58 /es/ GAEL ADHIKARI BURLAP WORKER GRANT LOMBARDO [facility]
--- OUTSIDE RECORDS SUMMARY | 2024-04-21 08:55 | XMS_ITS | Encounter Summary ---
Author Name [facility] [place] [facility] [place] Organization [facility] [place] Address [address] [place] [address] Care Team Providers Care Drop Pit Worker Name Role Phone LINDA PALOMINO Primary Care [...] to Policy Banegas CAREM[facility] PRESCRIPT ION [facility] May 03, 2018 [id number] Tracey BLISS PATIENT [employer] BEHAVIORAL HE[employer] [facility]ENTAL [facility] Jul 01, 2013 322 [id number] Tracey BLISS PATIENT CIGNA/NALC PREFERRED PROVIDER ORGANIZAT ION (PPO) [facility] Jul 01, 2013 32 [id number] Tracey BLISS PATIENT CIGNA/NALC PREFERRED PROVIDER ORGANIZAT ION (PPO) [facility] Jan 01, 2011 [id number] Tracey BLISSEP PATIENT CIGNA/NALC PREFERRED PROVIDER ORGANIZAT ION (PPO) [facility] HEALT H BENEF IT Jan 01, 2011 [id number] Tracey BLISS PATIENT MEDICARE (WNR) MEDICARE (M) PART B Jul 01, 2013 PART B [id number] [phone] Tracey BLISS PATIENT MEDICARE (WNR) MEDICARE (M) PART A Jul 01, 2013 PART A [id number] [phone] [id number] Tracey BLISS PATIENT MEDICARE (WNR) MEDICARE (M) PART A Jul 01, 2013 PART A [id number] Tracey BLISS PATIENT [facility] PREFERRED PROVIDER ORGANIZAT ION (PPO) [facility] May 03, 2018 32 [id number] Tracey BLISS PATIENT [facility] (MED PRIME) PREFERRED PROVIDER ORGANIZAT ION (PPO) [facility] FAMIL Y Jul 01, 2013 322 [id number] Tracey BLISS PATIENT [facility] (MED PRIME) PREFERRED PROVIDER ORGANIZAT ION (PPO) [facility] Jul 01, 2013 32 [id number] Tracey BLISS PATIENT [facility] MENTAL HEALTH [facility] -MCR A ONLY Jul 01, 2013 [id number] Tracey BLISS PATIENT [facility] MENTAL HEALTH [facility]* Jan 01, 2011 [id number] Tracey BLISS PATIENT Selected Encounter This section includes the information on record at [place] for the Encounter. Date/Time Encounter Type Encounter Description Reason Provider Source Jan 17, 2024 10:30 AM PSYTX W PT W E/M 30 MIN [facility] - IND ICD-10-CM F41.9 Anxiety disorder, unspecified DANIELLE ALEMAN E Encounter Template Text not used by [place] Assessments - Encounter Diagnoses This section includes the primary and secondary diagnoses documented for the Encounter. Date/Time Primary/Secondary Diagnosis Diagnosis Name Provider Source Jan 17, 2024 05:06 PM PRIMARY Anxiety disorder, unspecified DANIELLE ALEMAN [place] [facility] [place] [facility] Jan 17, 2024 05:06 PM SECONDARY Post-traumatic stress disorder, chronic ASH,DANIELLE A B [facility] [place] [facility] Plan of Treatment: Future Appointments (+ 6 months) and Future Tests (+/- 45 days) The Plan of Treatment section includes future care activities for the patient from all [place] treatmentfacilities. This section includes future appointments and [...] AMBULATORY - PSYCHIATRY [facility] [place] [facility] Feb 09, 2024 10:00 AM AMBULATORY - MEDICINE [facility] [place] [facility] Feb 11, 2024 10:45 AM AMBULATORY - NONE [facility] [place] [facility] Feb 16, 2024 11:30 AM AMBULATORY - NONE [facility] [place] [facility] Feb 22, 2024 01:45 PM AMBULATORY - MEDICINE [facility] [place] [facility] Mar 24, 2024 11:00 AM AMBULATORY - NONE [facility] [place] [facility] Apr 17, 2024 01:00 PM AMBULATORY - MEDICINE [facility] [place] [facility] May 16, 2024 10:00 AM AMBULATORY - PSYCHIATRY [facility] [place] [facility] May 16, 2024 11:30 AM AMBULATORY - MEDICINE [facility] [place] [facility] May 23, 2024 11:30 AM AMBULATORY - PSYCHIATRY [facility] [place] [facility] May 24, 2024 10:30 AM AMBULATORY - MEDICINE [facility] [place] [facility] May 30, 2024 10:00 AM AMBULATORY - PSYCHIATRY [facility] [place] [facility] Jun 13, 2024 10:00 AM AMBULATORY - PSYCHIATRY [facility] [place] [facility] Jun 27, 2024 10:00 AM AMBULATORY - PSYCHIATRY [facility] [place] [facility] Social History: Smoking Status (Most current) and Tobacco Use (All prior to encounter date) This section includes the most current, and the historical, smoking and tobacco- related health factors from the [place] facility where the Encounter took place. Current Smoking Status This section includes the most current smoking, or tobacco-related health factor, from the [place] facility where the Encounter took place. Date/Time Current Smoking Status Comment Nora ity Aug 04, 2023 09:00 AM VA-TOBACCO QUIT 15 YRS OR MORE [facility] Tobacco Use History This section includes a history of the smoking, or tobacco-related health factors, that were collected on or before the date of the Encounter. The data comes from the [place] facility where the Encounter took place. Date/Time Smoking Status/Tobacco Use Comment F acility Aug 04, 2023 09:00 AM VA-TOBACCO QUIT 15 YRS OR MORE [place] [facility] [place] [facility] Aug 05, 2022 11:30 AM VA-TOBACCO NEVER USED [facility] [place] [facility] Aug 22, 2021 11:30 AM VA-TOBACCO NEVER USED [place] [facility] [place] [facility] Apr 29, 2020 10:30 AM VA-TOBACCO NEVER USED [place] [facility] [place] [facility] September 21, 2018 09:39 AM VA-TOBACCO FORMER USER [place] [facility] [place] [facility] September 21, 2018 09:39 AM VA-TOBACCO QUIT 15 YRS OR MORE [facility] [place] [facility] Dec 31, 2017 02:50 PM QUIT TOBACCO USE > 7 YEARS AGO [facility] [place] [facility] Dec 31, 2016 09:33 AM QUIT TOBACCO USE > 7 YEARS AGO [facility] [place] [facility] Dec 31, 2016 09:31 AM QUIT TOBACCO USE 1 -7 YEARS AGO [facility] [place] [facility] Jan 08, 2016 01:57 PM QUIT TOBACCO USE > 7 YEARS AGO [facility] [place] [facility] Nov 15, 2014 10:48 AM QUIT TOBACCO USE > 7 YEARS AGO quit 1975 [place] [facility] [place] [facility] Advance Directives: All historical and current [...] Jan 01, 2005 ADVANCE DIRECTIVE KLAUS PAZ [facility] Encounter Notes: All associated encounter notes [...] there. MH treatment plan is documented here. is taking meds for MH and is doing well. He recently has re-engaged in individual therapy and reports doing well with same also. A/ does well with his PTSD when he has a combination of therapy and medications. He is currently feeling better and spirits are hopeful. P/ Continue same meds and therapy and document progress. /darcy/ CHERELLE ALEMAN, RN,MSN,PSYCH N.P., STAFF CLINICAL NURSE SPECIALIST Signed: 01/17/2024 17:20 CHERELLE ALEMAN [facility] Jan 17, 2024 05:07 PM CLINICAL NURSE SPECIALIST NOTE: LOCAL TITLE: CLINICAL NURSE SPECIALIST/MENTAL HEALTH STANDARD TITLE: CLINICAL NURSE SPECIALIST NOTE DATE OF NOTE: JAN 17, 2024@17:07 ENTRY DATE: JAN 17, 2024@17:07:44 AUTHOR: CHERELLE ALEMAN EXP COSIGNER: URGENCY: STATUS: COMPLETED NED BLISS JR, a 73year old WHITE MALE was seen for scheduled follow-up at [facility] for Dx: PTSD Two identifiers used, and [...] percent service connected for migraines and sinusitis. Austin had attended PTSD group with Dr. Durbin until she retired, and he is also followed by optometry and dental at this [facility]. PACT team is now #4, Dr Palomino. He is also followed in [facility] for dermatology. He has an outside PC as well, so his care is a bit fragmented. It is difficult to get UDS from [facility] as he does not often come to care at this [place] due to having an outside PCP. Had [...] follow up; visit lasted for 30 minutes. Austin reports doing well with current mental health medication, stated he is satisfied with current care. He still has community physician but is also using [facility] for occasional health checks and he did blood and urine screen labs here this year. He comes to [place] once a year to maintain his PACT [...] issues endorsed. Mental health meds are at [facility] and physical care is managed mostly in [...] that. As far as meds are concerned, [facility] has been warned previously about danger [...] ongoing appts with PACT and Dr. Lopes. Austin now appears (x)stable psychiatrically ()unstable psychiatrically i. [...] to continue the med. Has been on retirement benzos over years. Continue education on risks. 2. Appointments reviewed with and labs reviewed briefly as well. 3. Austin has therapy in place now and is [...] a VA or non-VA provider. /darcy/ CHERELLE ALEMAN, RN,MSN,PSYCH N.P., STAFF CLINICAL NURSE SPECIALIST Signed: 01/17/2024 17:08 CHERELLE ALEMAN [place] [facility] [place] [facility] Jan 17, 2024 10:53 AM ACCOUNTING OF DISCLOSURES NOTE: LOCAL TITLE: STATE PRESCRIPTION DRUG MONITORING PROGRAM STANDARD TITLE: ACCOUNTING OF DISCLOSURES NOTE DATE OF NOTE: JAN 17, 2024@10:53:25 ENTRY DATE: JAN 17, 2024@10:53:25 AUTHOR: CHERELLE ALEMAN EXP COSIGNER: URGENCY: STATUS: COMPLETED This PDMP query was submitted by Cherelle Aleman CARDIOVASCULAR DISEASE SPECIALIST. The clinical justification for this PDMP query is to review controlled substances prescribed outside of the [facility], and any additional information that may become available, as an important component of standard clinical care, and in accordance with [facility] policy. Patient information was shared with the PDMP [place]. Prescription(s) filled outside the [facility] in the last 90 days are noted. However, they do not raise significant safety concerns and do not influence the treatment plan at this time. Austin receives muscle relaxer from outside physician. he has been warned about mixing sedating meds. /darcy/ CHERELLE Tavares. ASH RN,MSN,PSYCH N.P., STAFF CLINICAL NURSE SPECIALIST Signed: 01/17/2024 10:53 CHERELLE ALEMAN [facility]
--- OUTSIDE RECORDS SUMMARY | 2024-04-21 08:55 | XMS_ITS ---
Author Name [facility] [place] Address [address] [place] [address] Care Team Providers Care Mechanic Recovery Name Role Phone LINDA PALOMINO Primary Care [...] Policy Banegas CAREMARK PRESCRIPT ION [facility] May 03, 2018 [id number] Tracey BLISS PATIENT [facility] Jul 01, 2013 [id number] Tracey BLISS PATIENT CIGNA/NALC PREFERRED PROVIDER ORGANIZAT ION (PPO) [facility] Jul 01, 2013 32 [id number] Tracey BLISS PATIENT CIGNA/NALC PREFERRED PROVIDER ORGANIZAT ION (PPO) [facility] Jan 01, 2011 321 [id number] Tracey BLISS PATIENT CIGNA/NALC PREFERRED PROVIDER ORGANIZAT ION (PPO) [facility] HEALT H BENEF Jan 01, 2011 [id number] Tracey BLISS PATIENT MEDICARE (WNR) MEDICARE (M) PART B Jul 01, 2013 PART B [id number] Tracey BLISS PATIENT MEDICARE (WNR) MEDICARE (M) PART A Jul 01, 2013 PART A [id number] Tracey BLISS PATIENT MEDICARE (WNR) MEDICARE (M) PART A Jul 01, 2013 PART A [id number] Tracey BLISS PATIENT [facility] PREFERRED PROVIDER ORGANIZAT ION (PPO) [facility] May 03, 2018 32 [id number] Tracey BLISS PATIENT [facility] (MED PRIME) PREFERRED PROVIDER ORGANIZAT ION (PPO) [facility] FAM[facility] Jul 01, 2013 [id number] Tracey BLISS PATIENT [facility] (MED PRIME) PREFERRED PROVIDER ORGANIZAT ION (PPO) [facility] Jul 01, 2013 32 [id number] Tracey BLISS PATIENT [facility] -MCR A ONLY Jul 01, 2013 [id number] Tracey BLISS PATIENT [facility]* Jan 01, 2011 [id number] Tracey BLISS PATIENT Selected Encounter This section includes the information on record at [place] for the Encounter. Date/Time Encounter Type Encounter Description Reason Pro vider Source Dec 08, 2023 03:00 PM Outpatient Encounter [facility] Encounter Template Text not used by [place] Plan of Treatment: Future Appointments (+ 6 months) and Future Tests (+/- 45 days) The Plan of Treatment section includes future care activities for the patient from all [place] treatmentfacilities. This section includes future appointments and [...] AMBULATORY - [facility]CHIATRY [facility] [place] [facility] Jan 17, 2024 10:30 AM AMBULATORY - PSYCHIATRY [facility] [place] [facility] Feb 01, 2024 10:00 AM AMBULATORY - PSYCHIATRY [facility] [place] [facility] Feb 09, 2024 10:00 AM AMBULATORY - MEDICINE [facility] [place] [facility] Feb 11, 2024 10:45 AM AMBULATORY - NONE [facility] [place] [facility] Feb 16, 2024 11:30 AM AMBULATORY - NONE [facility] [place] [facility] Feb 22, 2024 01:45 PM AMBULATORY - MEDICINE [facility] [place] [facility] Mar 24, 2024 11:00 AM AMBULATORY - NONE [facility] [place] [facility] Apr 17, 2024 01:00 PM AMBULATORY - MEDICINE [facility] [place] [facility] May 16, 2024 10:00 AM AMBULATORY - PSYCHIATRY [facility] [place] [facility] May 16, 2024 11:30 AM AMBULATORY - MEDICINE [facility] [place] [facility] May 23, 2024 11:30 AM AMBULATORY - PSYCHIATRY [facility] [place] [facility] May 24, 2024 10:30 AM AMBULATORY - MEDICINE [facility] [place] [facility] May 30, 2024 10:00 AM AMBULATORY - PSYCHIATRY [place] [facility] [place] [facility] Social History: Smoking Status (Most current) [...] AM VA-TOBACCO QUIT 15 YRS OR MORE [place] [facility] [place] [facility] Tobacco Use History This section includes a history of the smoking, or tobacco-related health factors, that were collected on or before the date of the Encounter. The data comes from the [place] facility where the Encounter took place. Date/Time Smoking Status/Tobacco Use Comment F acility Aug 04, 2023 09:00 AM VA-TOBACCO QUIT 15 YRS OR MORE [place] [facility] [place] [facility] Aug 05, 2022 11:30 AM VA-TOBACCO NEVER USED [place] [facility] [place] [facility] Aug 22, 2021 11:30 AM VA-TOBACCO NEVER USED [place] [facility] [place] [facility] Apr 29, 2020 10:30 AM VA-TOBACCO NEVER USED [place] [facility] [place] [facility] September 21, 2018 09:39 AM VA-TOBACCO FORMER USER [place] [facility] [place] [facility] September 21, 2018 09:39 AM VA-TOBACCO QUIT 15 YRS OR MORE [place] [facility] Dec 31, 2017 02:50 PM QUIT TOBACCO USE > 7 YEARS AGO [place] [facility] [place] [facility] Dec 31, 2016 09:33 AM QUIT TOBACCO USE > 7 YEARS AGO [place] [facility] Dec 31, 2016 09:31 AM QUIT TOBACCO USE 1 -7 YEARS AGO [place] [facility] [place] [facility] Jan 08, 2016 01:57 PM QUIT TOBACCO USE > 7 YEARS AGO [place] [facility] [place] [facility] Nov 15, 2014 10:48 AM QUIT TOBACCO USE > 7 YEARS AGO quit [facility] Advance Directives: All historical and current [...] Jan 01, 2005 ADVANCE DIRECTIVE KLAUS PAZ [place] [facility] Encounter Notes: All associated encounter notes This section contains the clinical notes associated to the Encounter. 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 has a follow-up appt. on 01/14 @ 1030, as he will be going on vacation from 12/28 to 01/08/2024, and states that he does not need to be seen sooner. Thank you. 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 has a follow-up appt. on 01/14 @ 1030, as he will be going on vacation from 12/28 to 01/08/2024, and states that he does not need to be seen sooner. Thank you. /darcy/ JOSE BORREGO ADVANCED PHARMACY BENEFIT MANAGER Signed: 12/08/2023 15:06 12/08/2023 ADDENDUM STATUS: COMPLETED RTC dispositioned for CWM/NO/VVC/MHC/DONNELL ALEMAN, PID 12/30/2023, as no longer necessary. /darcy/ JOSE BORREGO ADVANCED PHARMACY BENEFIT MANAGER Signed: 12/08/2023 15:07 Receipt Acknowledged By: * AWAITING SIGNATURE * ELIEL ALEMAN,[facility]
--- OUTSIDE RECORDS SUMMARY | 2024-04-21 08:55 | XMS_ITS ---
Author Name [place] Address [address] [place] [address] Care Team Providers Care Licensed Physical Therapy Assistant Name Role Phone LINDA PALOMINO Primary [...] Policy Banegas CAREMARK PRESCRIPT ION [facility] May 03, 2018 [id number] Tracey BLISS PATIENT [employer] MENTAL HEALTH [facility] Jul 01, 2013 [id number] [facility] CIGNA/NALC PREFERRED PROVIDER ORGANIZAT ION (PPO) [facility] Jul 01, 2013 32 [id number] Tracey BLISS PATIENT CIGNA/NALC PREFERRED PROVIDER ORGANIZAT ION (PPO) [facility] Jan 01, 2011 [id number] Tracey BLISS PATIENT CIGNA/NALC PREFERRED PROVIDER ORGANIZAT ION (PPO) [facility] HEALT H BENEF Jan 01, 2011 [id number] Tracey BLISS PATIENT MEDICARE (WNR) MEDICARE (M) PART B Jul 01, 2013 PART B [id number] Tracey BLISS PATIENT MEDICARE (WNR) MEDICARE (M) PART A Jul 01, 2013 PART A [id number] Tracey BLISS PATIENT MEDICARE (WNR) MEDICARE (M) PART A Jul 01, 2013 PART A [id number] Tracey BLISS PATIENT [facility] PREFERRED PROVIDER ORGANIZAT ION (PPO) [facility] May 03, 2018 32 [id number] Tracey BLISS PATIENT [facility] (MED PRIME) PREFERRED PROVIDER ORGANIZAT ION (PPO) [facility] FAMIL Y Jul 01, 2013 [id number] Tracey BLISS PATIENT [facility] (MED PRIME) PREFERRED PROVIDER ORGANIZAT ION (PPO) [facility] Jul 01, 2013 32 [id number] Tracey BLISS PATIENT [facility] -MCR A ONLY Jul 01, 2013 [id number] Tracey BLISS PATIENT [facility]* Jan 01, 2011 [id number] Tracey BLISS PATIENT Selected Encounter This [...] AMBULATORY - PSYCHIATRY [facility] [place] [facility] Jan 11, 2024 10:00 AM AMBULATORY - PSYCHIATRY [facility] [place] [facility] Jan 17, 2024 10:30 AM AMBULATORY - PSYCHIATRY [facility] [place] [facility] Feb 01, 2024 10:00 AM AMBULATORY - PSYCHIATRY [facility] [place] [facility] Feb 09, 2024 10:00 AM AMBULATORY - MEDICINE [facility] [place] [facility] Feb 11, 2024 10:45 AM AMBULATORY - NONE [facility] [place] [facility] Feb 16, 2024 11:30 AM AMBULATORY - NONE [facility] [place] [facility] Feb 22, 2024 01:45 PM AMBULATORY - MEDICINE [facility] [place] [facility] Mar 24, 2024 11:00 AM AMBULATORY - NONE [facility] [place] [facility] Social History: Smoking Status [...] VA-TOBACCO FORMER USER [place] [facility] [place] [facility] Tobacco Use History This section includes a history of the smoking, or tobacco-related health factors, that were collected on or before the date of the Encounter. The data comes from the [place] facility where the Encounter took place. Date/Time Smoking Status/Tobacco Use Comment F acility Aug 04, 2023 09:00 AM VA-TOBACCO QUIT 15 YRS OR MORE [facility] [place] [facility] Aug 05, 2022 11:30 AM VA-TOBACCO NEVER USED [place] [facility] [place] [facility] Aug 22, 2021 11:30 AM VA-TOBACCO NEVER USED [place] [facility] [place] [facility] Apr 29, 2020 10:30 AM VA-TOBACCO NEVER USED [place] [facility] [place] [facility] September 21, 2018 09:39 AM VA-TOBACCO [facility] [place] [facility] September 21, 2018 09:39 AM VA-TOBACCO QUIT 15 YRS OR [facility] Dec 31, 2017 02:50 PM QUIT TOBACCO USE > 7 YEARS AGO [place] [facility] [place] [facility] Dec 31, 2016 09:33 AM QUIT TOBACCO USE > 7 YEARS AGO [place] [facility] Dec 31, 2016 09:31 AM QUIT TOBACCO USE 1 -7 YEARS AGO [place] [facility] Jan 08, 2016 01:57 PM QUIT TOBACCO USE > 7 YEARS AGO [place] [facility] Nov 15, 2014 10:48 AM QUIT TOBACCO USE > 7 YEARS AGO quit 1975 [facility] Advance Directives: All historical and current [...] Jan 01, 2005 ADVANCE DIRECTIVE [facility]US [facility]Z [facility] Encounter Notes: All associated encounter notes [...] available to this reminder. Prior/outside Colonoscopy results: [facility] 09/10/23, repeat 3yrs. [facility] Date: September 10, 2023 Colonoscopy reminder set 3 years from OCT 12, 2023. /darcy/ Susan Maldonado MSN RN CNL Primary Care RN Signed: 10/12/2023 07:33 SUSAN MALDONADO [place] [facility]
--- OUTSIDE RECORDS SUMMARY | 2024-04-21 08:55 | XMS_ITS ---
Author Name [place] Address [address] [place] [address] Care Team Providers Care Technical Services Representative Name Role Phone LINDA PALOMINO Primary Care [...] Relationship to Policy Banegas CAREMARK PRESCRIPT ION [facility] May 03, 2018 [id number] Tracey BLISS PATIENT [facility] MENTAL HEALTH [facility] Jul 01, 2013 322 [id number] [facility] CIGNA/NALC PREFERRED PROVIDER ORGANIZAT ION (PPO) [facility] Jul 01, 2013 32 [id number] Tracey BLISS PATIENT CIGNA/NALC PREFERRED PROVIDER [facility] Jan 01, 2011 321 [id number] Tracey BLISS PATIENT CIGNA/NALC PREFERRED PROVIDER ORGANIZAT ION (PPO) [facility] Jan 01, 2011 [id number] Tracey BLISS PATIENT MEDICARE (WNR) MEDICARE (M) PART B Jul 01, 2013 PART B [id number] Tracey BLISS PATIENT MEDICARE (WNR) MEDICARE (M) PART A Jul 01, 2013 PART A [id number] Tracey BLISS PATIENT MEDICARE (WNR) MEDICARE (M) PART A Jul 01, 2013 PART A [id number] Tracey BLISS PATIENT [facility] PREFERRED PROVIDER ORGANIZAT ION (PPO) [facility] May 03, 2018 32 [id number] Tracey BLISS PATIENT [facility] (MED PRIME) PREFERRED PROVIDER ORGANIZAT ION (PPO) [facility] FAM[facility] Jul 01, 2013 [id number] Tracey BLISS PATIENT [facility] (MED PRIME) PREFERRED PROVIDER ORGANIZAT ION (PPO) [facility] Jul 01, 2013 32 [id number] Tracey BLISS PATIENT [facility] -MCR A ONLY Jul 01, 2013 [id number] Tracey BLISS PATIENT [facility]* Jan 01, 2011 [id number] Tracey BLISS PATIENT Selected Encounter This section includes the information on record at [place] for the Encounter. Date/Time Encounter Type Encounter Description Reason Pro vider Source Oct 12, 2023 12:00 AM Outpatient Encounter EVENT (HISTORICAL) [facility] Encounter Template Text not used by [place] Plan of Treatment: Future Appointments (+ 6 [...] [facility] [place] [facility] Jan 11, 2024 10:00 AM AMBULATORY - PSYCHIATRY [facility] [place] [facility] Jan 17, 2024 10:30 AM AMBULATORY - PSYCHIATRY [facility] [place] [facility] Feb 01, 2024 10:00 AM AMBULATORY - PSYCHIATRY [facility] [place] [facility] Feb 09, 2024 10:00 AM AMBULATORY - MEDICINE [facility] [place] [facility] Feb 11, 2024 10:45 AM AMBULATORY - NONE [place] [facility] [place] [facility] Feb 16, 2024 11:30 AM AMBULATORY - NONE [place] [facility] [facility] Feb 22, 2024 01:45 PM AMBULATORY - MEDICINE [facility] [facility] Mar 24, 2024 11:00 AM AMBULATORY - NONE [place] [facility] [facility] Social History: Smoking Status (Most current) and [...] Current Smoking Status Comment Nora pardoy Aug 04, 2023 09:00 AM VA-TOBACCO FORMER USER [place] [facility] [facility] Tobacco Use History This section includes a history of the smoking, or tobacco-related health factors, that were collected on or before the date of the Encounter. The data comes from the [place] facility where the Encounter took place. Date/Time Smoking Status/Tobacco Use Comment F acility Aug 04, 2023 09:00 AM VA-TOBACCO QUIT 15 YRS OR MORE [place] [facility] [place] [facility] Aug 05, 2022 11:30 AM VA-TOBACCO NEVER USED [place] [facility] [facility] Aug 22, 2021 11:30 AM VA-TOBACCO NEVER USED [place] [facility] [place] [facility] Apr 29, 2020 10:30 AM VA-TOBACCO NEVER USED [place] [facility] [place] [facility] September 21, 2018 09:39 AM VA-TOBACCO [facility] September 21, 2018 09:39 AM VA-TOBACCO QUIT 15 YRS OR MORE [facility] Dec 31, 2017 02:50 PM QUIT TOBACCO USE > 7 YEARS AGO [facility] Dec 31, 2016 09:33 AM QUIT TOBACCO USE > 7 YEARS AGO [facility] Dec 31, 2016 09:31 AM QUIT TOBACCO USE 1 -7 YEARS AGO [facility] Jan 08, 2016 01:57 PM QUIT TOBACCO USE > 7 YEARS AGO [facility] Nov 15, 2014 10:48 AM QUIT TOBACCO USE > 7 YEARS AGO quit 1975 [facility] Advance Directives: All historical and current [...] Jan 01, 2005 ADVANCE DIRECTIVE KLAUS PAZ [facility]
--- OUTSIDE RECORDS SUMMARY | 2024-04-21 08:55 | XMS_ITS | Encounter Summary ---
Author Name [facility] of [place] [place] Organization [place] Address [address] [place] [id number] Care Team Providers Care Schedule Clerk Name Role Phone LINDA PALOMINO Primary [...] PRESCRIPT ION [facility] May 03, 2018 [id number] [phone] Tracey BLISS PATIENT [facility] Jul 01, 2013 [id number] Tracey BLISS PATIENT CIGNA/NALC PREFERRED PROVIDER ORGANIZAT ION (PPO) [facility] Jul 01, 2013 32 [id number] Tracey BLISS PATIENT [employer]IG[employer]/NALC PREFERRED PROVIDER ORGANIZAT ION (PPO) [facility] Jan 01, 2011 [id number] [phone] Tracey BLISS PATIENT CIGNA/NALC PREFERRED PROVIDER ORGANIZAT ION (PPO) [facility] HEALT H BENEF Jan 01, 2011 [id number] Tracey BLISS PATIENT MEDICARE (WNR) MEDICARE (M) PART B Jul 01, 2013 PART B [id number] Tracey BLISS PATIENT MEDICARE (WNR) MEDICARE (M) PART A Jul 01, 2013 PART A [id number] [phone] Tracey BLISS PATIENT MEDICARE (WNR) MEDICARE (M) PART A Jul 01, 2013 PART A [id number] [phone] Tracey BLISS PATIENT [facility] PREFERRED PROVIDER ORGANIZAT ION (PPO) [facility] May 03, 2018 32 [id number] [phone] Tracey BLISS PATIENT [facility] (MED PRIME) PREFERRED PROVIDER ORGANIZAT ION (PPO) [facility] FAMIL [facility] Jul 01, 2013 [id number] Tracey BLISS PATIENT [facility] (MED PRIME) PREFERRED PROVIDER ORGANIZAT ION (PPO) [facility] Jul 01, 2013 32 [id number] Tracey BLISS PATIENT [facility] -MCR A ONLY Jul 01, 2013 [id number] Tracey BLISS PATIENT [facility]* Jan 01, 2011 [id number] Tracey BLISS PATIENT Selected Encounter This section includes the information on record at [place] for the Encounter. Date/Time Encounter Type Encounter Description Reason Pro vider Source Oct 05, 2023 12:41 PM Outpatient Encounter ADMIN PAT ACTIVTIES (MASNONCT) IHE Encounter Template Text not used by ID Plan of Treatment: Future Appointments (+ 6 [...] 20 appointments. The data comes from all [place] treatment facilities. Appointment Date/Time Appointment Type Appointme nt Facility Name Oct 08, 2023 01:00 PM AMBULATORY [facility] [place] [facility] Nov 03, 2023 09:00 AM AMBULATORY [facility] [place] [facility] Jan 11, 2024 10:00 AM AMBULATORY - [facility]IATRY [facility] [place] [facility] Jan 17, 2024 10:30 AM AMBULATORY - [facility]IATRY [facility] [place] [facility] Feb 01, 2024 10:00 AM AMBULATORY - [facility]IATRY [facility] [place] [facility] Feb 09, 2024 10:00 AM AMBULATORY - MEDICINE [facility] [place] [facility] Feb 11, 2024 10:45 AM AMBULATORY - NONE [facility] [place] [facility] Feb 16, 2024 11:30 AM AMBULATORY - NONE [facility] [place] [facility] Feb 22, 2024 01:45 PM AMBULATORY - MEDICINE [facility] [place] [facility] Mar 24, 2024 11:00 AM AMBULATORY - NONE [facility] [place] [facility] Social History: Smoking Status [...] 04, 2023 09:00 AM VA-TOBACCO FORMER USER [place] [facility] [place] [facility] Tobacco Use History This section includes a history of the smoking, or tobacco-related health factors, that were collected on or before the date of the Encounter. The data comes from the [place] facility where the Encounter took place. Date/Time Smoking Status/Tobacco Use Comment F acility Aug 04, 2023 09:00 AM VA-TOBACCO QUIT 15 YRS OR MORE [facility] [place] [facility] Aug 05, 2022 11:30 AM VA-TOBACCO NEVER USED [facility] [place] [facility] Aug 22, 2021 11:30 AM VA-TOBACCO NEVER USED [facility] [place] [facility] Apr 29, 2020 10:30 AM [facility] [place] [facility] September 21, 2018 09:39 AM VA-TOBACCO [facility] September 21, 2018 09:39 AM VA-TOBACCO QUIT 15 YRS OR [facility] Dec 31, 2017 02:50 PM QUIT TOBACCO USE > 7 YEARS AGO [facility] Dec 31, 2016 09:33 AM QUIT TOBACCO USE > 7 YEARS AGO [facility] Dec 31, 2016 09:31 AM QUIT TOBACCO USE 1 -7 YEARS AGO [facility] Jan 08, 2016 01:57 PM QUIT TOBACCO USE > 7 YEARS AGO [facility] Nov 15, 2014 10:48 AM QUIT TOBACCO USE > 7 YEARS AGO quit 1975 [facility] Advance Directives: All historical and current [...] Jan 01, 2005 ADVANCE DIRECTIVE [facility]US [facility]Z [facility] Encounter Notes: All associated encounter notes This section contains the clinical notes associated to the Encounter. Date/Time Encounter Note(s) Provider Source Oct 05, 2023 01:03 PM ADDENDUM: LOCAL TITLE: Addendum STANDARD TITLE: ADDENDUM DATE OF NOTE: OCT 05, 2023@13:03:16 ENTRY DATE: OCT 05, 2023@13:03:17 AUTHOR: ANNA HUERTAS EXP COSIGNER: URGENCY: STATUS: COMPLETED Added PCP. Vet is requesting medication refill of: Balsalazide disodium capsules /darcy/ Anna Huertas office rn Staff Nurse Signed: 10/05/2023 13:03 Receipt Acknowledged By: 10/05/2023 13:17 /darcy/ LINDA PALOMINO MD PHYSICIAN --- Original Document --- 10/05/23 CCC: SCHEDULING ADMINISTRATION: Patient Demographics Patient Name: NED BLISS Patient Primary Phone: [phone] Patient Primary Address: [address] [place] [address] Patient : 1950 Patient Age: 73 Caller/Recipient Relation to Patient: Self Administrative Administrative Note Reason: Other Administrative Note Comments: [place] called to have his Balsalazide disodium capsules refilled - no record of this medication in chart. then states his outside GI doctor orders this. This signwriter is not sure if will contact outside MD for new prescription - he kept stating his PACT MD orders this Please review /es/ ELIEL DAHL 1 [facility] Signed: 10/05/2023 12:41 Receipt Acknowledged By: 10/05/2023 13:07 /es/ REGI LANG, OLIVER, RN, CNL PRIMARY CARE TEAM NURSE 10/05/2023 13:04 /es/ Anna Huertas RN Primary Care Staff Nurse ANNA HUERTAS [place] [facility] [facility] Oct 05, 2023 12:41 PM ADMINISTRATIVE NOT E: LOCAL TITLE: CCC: SCHEDULING ADMINISTRATION STANDARD TITLE: ADMINISTRATIVE NOTE DATE OF NOTE: OCT 05, 2023@12:41:45 ENTRY DATE: OCT 05, 2023@12:41:46 AUTHOR: ELIEL MADDEN EXP COSIGNER: URGENCY: STATUS: COMPLETED CCC: SCHEDULING ADMINISTRATION Has ADDENDA Patient Demographics Patient Name: NED BLISS Patient Primary Phone: [phone] Patient Primary Address: [address] [place] [address] Patient : 1950 Patient Age: 73 Caller/Recipient Relation to Patient: Self Administrative Administrative Note Reason: Other Administrative Note Comments: called to have his Balsalazide disodium capsules refilled - no record of this medication in chart. then states his outside GI doctor orders this. This signwriter is not sure if will contact outside MD for new prescription - he kept stating his PACT MD orders this Please review /darcy/ ELIEL DAHL 1 [facility] Signed: 10/05/2023 12:41 Receipt Acknowledged By: 10/05/2023 13:07 /darcy/ REGI LANG, MSN, RN, CNL PRIMARY CARE TEAM NURSE 10/05/2023 13:04 /darcy/ Anna Huertas RN Primary Care Staff Nurse 10/05/2023 ADDENDUM STATUS: COMPLETED Added PCP. Vet is requesting medication refill of: Balsalazide disodium capsules /darcy/ Anna Huertas RN Primary Care Staff Nurse Signed: 10/05/2023 13:03 Receipt Acknowledged By: * AWAITING SIGNATURE * LINDA PALOMINO,ELIEL LEONG [facility]
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
--- OUTSIDE RECORDS SUMMARY | 2024-04-21 08:55 | XMS_ITS | Encounter Summary ---
Author Name [facility] [place] Address [address] [place] [address] Care Team Providers Care Inserter Promotional Item Name Role Phone LINDA PALOMINO Primary Care [...] Relationship to Policy Banegas [place] PRESCRIPT ION [facility] May 03, 2018 [id number] Tracey BLISS PATIENT [facility] MENTAL HEALTH [facility] Jul 01, 2013 322 [id number] [facility] CIGNA/NALC PREFERRED PROVIDER ORGANIZAT ION (PPO) [facility] Jul 01, 2013 32 [id number] Tracey BLISS PATIENT CIGNA/NALC PREFERRED PROVIDER ORGANIZAT ION (PPO) [facility] Jan 01, 2011 321 [id number] [phone] Tracey BLISS PATIENT CIGNA/NALC PREFERRED PROVIDER ORGANIZAT ION (PPO) [facility] Jan 01, 2011 [id number] Tracey BLISS PATIENT MEDICARE (WNR) MEDICARE (M) PART B Jul 01, 2013 PART B [id number] Tracey BLISS PATIENT MEDICARE (WNR) MEDICARE (M) PART A Jul 01, 2013 PART A [id number] [id number] Tracey BLISS PATIENT MEDICARE (WNR) MEDICARE (M) PART A Jul 01, 2013 PART A [id number] Tracey BLISS PATIENT [facility] PREFERRED PROVIDER ORGANIZAT ION (PPO) [facility] May 03, 2018 32 [id number] [phone] Tracey BLISS PATIENT [facility] (MED PRIME) PREFERRED PROVIDER ORGANIZAT ION (PPO) [facility] FAMIL Y Jul 01, 2013 [id number] Tracey BLISS PATIENT [facility] (MED PRIME) PREFERRED PROVIDER ORGANIZAT ION (PPO) [facility] Jul 01, 2013 32 [id number] Tracey BLISS PATIENT [facility]AL HE[facility] -MCR A ONLY Jul 01, 2013 [id number] Tracey BLISS PATIENT [facility]* Jan 01, 2011 [id number] Tracey BLISS PATIENT Selected Encounter This section includes the information on record at [place] for the Encounter. Date/Time Encounter Type Encounter Description Reason Pro vider Source September 10, 2023 12:00 AM Outpatient Encounter EVENT (HISTORICAL) IHE Encounter Template Text not used by [place] Plan of Treatment: Future Appointments (+ 6 [...] 20 appointments. The data comes from all [place] treatment facilities. Appointment Date/Time Appointment Type Appointme nt Facility Name Oct 08, 2023 01:00 PM AMBULATORY - PS[facility]CHIATRY [facility] [place] [facility] Nov 03, 2023 09:00 AM AMBULATORY - PSYCHIATRY [facility] [place] [facility] Jan 11, 2024 10:00 AM AMBULATORY - PSYCHIATRY [facility] [place] [facility] Jan 17, 2024 10:30 AM AMBULATORY - PSYCHIATRY [facility] [place] [facility] Feb 01, 2024 10:00 AM AMBULATORY - PSYCHIATRY [facility] [facility] Feb 09, 2024 10:00 AM AMBULATORY - MEDICINE [place] [facility] [place] [facility] Feb 11, 2024 10:45 AM AMBULATORY - NONE [place] [facility] [facility] Feb 16, 2024 11:30 AM AMBULATORY - NONE [place] [facility] [place] [facility] Feb 22, 2024 01:45 PM AMBULATORY - MEDICINE [place] [facility] [place] [facility] Social History: Smoking Status (Most current) and Tobacco Use (All prior to encounter date) This section includes the most current, and the historical, smoking and tobacco- related health factors from the [place] facility where the Encounter took place. Current Smoking Status This section includes the most current smoking, or tobacco-related health factor, from the [place] facility where the Encounter took place. Date/Time Current Smoking Status Comment Nora ity Aug 04, 2023 09:00 AM VA-TOBACCO FORMER USER [place] [facility] [place] [facility] Tobacco Use History This section includes a history of the smoking, or tobacco-related health factors, that were collected on or before the date of the Encounter. The data comes from the [place] facility where the Encounter took place. Date/Time Smoking Status/Tobacco Use Comment F acility Aug 04, 2023 09:00 AM VA-TOBACCO QUIT 15 YRS OR MORE [facility] [place] [facility] Aug 05, 2022 11:30 AM VA-TOBACCO NEVER USED [place] [facility] [facility] Aug 22, 2021 11:30 AM VA-TOBACCO NEVER USED [place] [facility] [place] [facility] Apr 29, 2020 10:30 AM VA-TOBACCO NEVER USED [place] [facility] [place] [facility] September 21, 2018 09:39 AM VA-TOBACCO [facility] September 21, 2018 09:39 AM VA-TOBACCO QUIT [address] [facility] Dec 31, 2017 02:50 PM QUIT TOBACCO USE > 7 YE[facility] A[facility] Dec 31, 2016 09:33 AM QUIT TOBACCO USE > [address] [facility] Dec 31, 2016 09:31 AM QUIT TOBACCO USE 1 -[address] [facility] Jan 08, 2016 01:57 PM QUIT TOBACCO USE > [address] [facility] Nov 15, 2014 10:48 AM QUIT TOBACCO USE > 7 YEARS AGO quit 1975 [facility] Advance Directives: All historical and current Section Date Range: From patient's date of to the date document was created. This section includes ALL of a patient's completed or amended [place] Advance and Rescinded Directives. The entries below indicate that a directive exists for the patient, but an actual copy is not included with this document. The data comes from all [place] facilities. Date Advance Directives Provider Source Jan 01, [address] [facility]
--- OUTSIDE RECORDS SUMMARY | 2024-04-21 08:55 | XMS_ITS ---
Author Name [facility] [place] Organization [place] Address [address] [place] [address] Care Team Providers Care Robot Operator Name Role Phone LINDA PALOMINO Primary [...] PRESCRIPT ION [facility] May 03, 2018 [id number] Tracey BLISS PATIENT [facility] Jul 01, 2013 [id number] Tracey BLISSCOX [place] PATIENT CIGNA/NALC PREFERRED PROVIDER ORGANIZAT ION (PPO) [facility] Jul 01, 2013 32 [id number] Tracey BLISSCOX [place] PATIENT CIGNA/NALC PREFERRED PROVIDER ORGANIZAT ION (PPO) [facility] Jan 01, 2011 [id number] Tracey BLISS PATIENT CIGNA/NALC PREFERRED PROVIDER ORGANIZAT ION (PPO) [facility] BENEF Jan 01, 2011 [id number] Tracey BLISS PATIENT MEDICARE (WNR) MEDICARE (M) PART B Jul 01, 2013 PART B [id number] Tracey BLISS PATIENT MEDICARE (WNR) MEDICARE (M) PART A Jul 01, 2013 PART A [id number] [phone] Tracey BLISS PATIENT MEDICARE (WNR) MEDICARE (M) PART A Jul 01, 2013 PART A [id number] Tracey BLISS PATIENT [facility] PREFERRED PROVIDER ORGANIZAT ION (PPO) [facility] May 03, 2018 32 [id number] Tracey BLISS PATIENT [facility] (MED PRIME) PREFERRED PROVIDER ORGANIZAT ION (PPO) [facility] Jul 01, 2013 [id number] Tracey BLISS PATIENT [facility] (MED PRIME) PREFERRED PROVIDER ORGANIZAT ION (PPO) [facility] Jul 01, 2013 32 [id number] Tracey BLISS PATIENT [facility] -MCR A ONLY Jul 01, 2013 [id number] Tracey BLISS PATIENT [facility]* Jan 01, 2011 [id number] Tracey BLISS PATIENT Selected Encounter This section includes the information on record at [place] for the Encounter. Date/Time Encounter Type Encounter [...] 20 appointments. The data comes from all [place] treatment facilities. Appointment Date/Time Appointment Type Appointme nt Facility Name Jan 11, 2024 10:00 AM AMBULATORY - [facility]IATRY [facility] [place] [facility] Jan 17, 2024 10:30 AM AMBULATORY - PS[facility]CHIATRY [facility] [place] [facility] Feb 01, 2024 10:00 AM AMBULATORY - PSYCHIATRY [facility] [place] [facility] Feb 09, 2024 10:00 AM AMBULATORY - MEDICINE [facility] [place] [facility] Feb 11, 2024 10:45 AM AMBULATORY - NONE [facility] [place] [facility] Feb 16, 2024 11:30 AM AMBULATORY - NONE [facility] [place] [facility] Feb 22, 2024 01:45 PM AMBULATORY - MEDICINE [facility] [place] [facility] Mar 24, 2024 11:00 AM AMBULATORY - NONE [facility] [place] [facility] Apr 17, 2024 01:00 PM AMBULATORY - MEDICINE [facility] [place] [facility] May 16, 2024 10:00 AM AMBULATORY - PSYCHIATRY [facility] [place] [facility] May 16, 2024 11:30 AM AMBULATORY - MEDICINE [facility] [place] [facility] May 23, 2024 11:30 AM AMBULATORY - PSYCHIATRY [facility] [place] [facility] May 24, 2024 10:30 AM AMBULATORY - MEDICINE [place] [facility] [place] [facility] Social History: Smoking Status (Most current) and Tobacco Use (All prior to encounter date) This section includes the most current, and the historical, smoking and tobacco- related health factors from the AL facility where the Encounter took place. Current Smoking Status This section includes the most current smoking, or tobacco-related health factor, from the AL facility where the Encounter took place. Date/Time Current Smoking Status Comment Facil ity Aug 04, 2023 09:00 AM AL-TOBACCO QUIT 15 YRS OR MORE [facility] [place] [facility] Tobacco Use History This section includes a history of the smoking, or tobacco-related health factors, that were collected on or before the date of the Encounter. The data comes from the AL facility where the Encounter took place. Date/Time Smoking Status/Tobacco Use Comment F acility Aug 04, 2023 09:00 AM VA-TOBACCO QUIT 15 YRS OR MORE [facility] [place] [facility] Aug 05, 2022 11:30 AM VA-TOBACCO NEVER USED [facility] [place] [facility] Aug 22, 2021 11:30 AM VA-TOBACCO NEVER USED [facility] [place] [facility] Apr 29, 2020 10:30 AM VA-TOBACCO NEVER USED AL [facility] [place] [facility] September 21, 2018 09:39 AM VA-TOBACCO FORMER USER AL [facility] [place] [facility] September 21, 2018 09:39 AM VA-TOBACCO QUIT 15 YRS OR MORE [facility] [place] [facility] Dec 31, 2017 02:50 PM QUIT TOBACCO USE > 7 YEARS AGO [facility] [place] [facility] Dec 31, 2016 09:33 AM QUIT TOBACCO USE > 7 YEARS AGO [facility] [place] [facility] Dec 31, 2016 09:31 AM QUIT TOBACCO USE 1 -7 YEARS AGO [facility] [place] [facility] Jan 08, 2016 01:57 PM QUIT TOBACCO USE > 7 YEARS AGO [facility] [place] [facility] Nov 15, 2014 10:48 AM QUIT TOBACCO USE > 7 YEARS AGO quit 1975 [place] [facility] [place] [facility] Advance Directives: All historical and current Section Date Range: From patient's date of to the date document was created. This section includes ALL of a patient's completed or amended [place] Advance and Rescinded Directives. The entries below indicate that a directive exists for the patient, but an actual copy is not included with this document. The data comes from all [place] facilities. Date Advance Directives Provider Source Jan 01, 2005 ADVANCE DIRECTIVE KLAUS PAZ ES [place] [facility] [place] [facility] Encounter Notes: All associated [...] REQUIRED Electronically Filed: 12/22/2023 by: [facility] DICKSON [facility]
--- OUTSIDE RECORDS SUMMARY | 2024-04-21 08:55 | XMS_ITS | Encounter Summary ---
Author Name [place] Organization [place] Address [address] [place] [address] Care Team Providers Care Museum Exhibit Designer Name Role Phone LINDA PALOMINO Primary Care [...] Relationship to Policy Banegas [place] PRESCRIPT ION [facility] May 03, 2018 [id number] Tracey BLISS PATIENT [facility] Jul 01, 2013 [id number] Tracey BLISS PATIENT CIGNA/NALC PREFERRED PROVIDER ORGANIZAT ION (PPO) [facility] Jul 01, 2013 32 [id number] Tracey BLISS PATIENT [employer]IG[employer]/NALC PREFERRED PROVIDER ORGANIZAT ION (PPO) [facility] Jan 01, 2011 [id number] Tracey BLISS PATIENT [employer]IG[employer]NALC PREFERRED PROVIDER ORGANIZAT ION (PPO) [facility] HEALT H BENEF Jan 01, 2011 [id number] Tracey BLISS PATIENT MEDICARE (WNR) MEDICARE (M) PART B Jul 01, 2013 PART B [id number] Tracey BLISS PATIENT MEDICARE (WNR) MEDICARE (M) PART A Jul 01, 2013 PART A [id number] [phone] Tracey BLISS PATIENT MEDICARE (WNR) MEDICARE (M) PART A Jul 01, 2013 PART A [id number] [phone] Tracey BLISS PATIENT [facility] PREFERRED PROVIDER ORGANIZAT ION (PPO) [facility] May 03, 2018 [id number] Tracey BLISS PATIENT [facility] (MED PRIME) PREFERRED PROVIDER ORGANIZAT ION (PPO) [facility] Jul 01, 2013 [id number] Tracey BLISSH PATIENT [facility] (MED PRIME) PREFERRED PROVIDER ORGANIZAT ION (PPO) [facility] Jul 01, 2013 32 [id number] Tracey BLISSH PATIENT [facility] -MCR A ONLY Jul 01, 2013 [id number] Tracey BLISSH PATIENT [facility]* Jan 01, 2011 [id number] Tracey BLISS PATIENT Selected Encounter This section includes the information on record at [place] for the Encounter. Date/Time Encounter Type Encounter Description Reason Provider Source Nov 03, 2023 09:00 AM PSYTX W PT 45 MINUTES [facility] - IND ICD-10-CM F43.12 Post-traumatic stress disorder, chronic ROSENDO CRUZ E Encounter Template Text not used by [place] Assessments - Encounter Diagnoses This section includes the primary and secondary diagnoses documented for the Encounter. Date/Time Primary/Secondary Diagnosis Diagnosis Name Provider Source Nov 03, 2023 10:34 AM PRIMARY Post-traumatic stress disorder, chronic ROSENDO CRUZ [facility] [place] [facility] Nov 03, 2023 10:34 AM SECONDARY Allergic rhinitis, unspecified ROSENDO CRUZ [facility] [place] [facility] Nov 03, 2023 10:34 AM SECONDARY Holland's palsy ROSENDO CRUZ [facility] [place] [facility] Nov 03, 2023 10:34 AM SECONDARY Chronic sinusitis, unspecified ROSENDO CRUZ [facility] [place] [facility] Nov 03, 2023 10:34 AM SECONDARY Pain, unspecified ROSENDO CRUZ [facility] [place] [facility] Plan of Treatment: Future Appointments (+ 6 months) and Future Tests (+/- 45 days) The Plan of Treatment section includes future care activities for the patient from all [place] [facility]. This section includes future appointments and [...] 11, 2024 10:00 AM AMBULATORY - PSYCHIATRY [facility] [place] [facility] Jan 17, 2024 10:30 AM AMBULATORY - PSYCHIATRY [facility] [place] [facility] Feb 01, 2024 10:00 AM AMBULATORY - PSYCHIATRY [facility] [place] [facility] Feb 09, 2024 10:00 AM AMBULATORY - MEDICINE [facility] [place] [facility] Feb 11, 2024 10:45 AM AMBULATORY - NONE [facility] [place] [facility] Feb 16, 2024 11:30 AM AMBULATORY - NONE [facility] [place] [facility] Feb 22, 2024 01:45 PM AMBULATORY - MEDICINE [facility] [place] [facility] Mar 24, 2024 11:00 AM AMBULATORY - NONE [facility] [place] [facility] Apr 17, 2024 01:00 PM AMBULATORY - MEDICINE [facility] [place] [facility] Social History: Smoking Status (Most [...] AM VA-TOBACCO QUIT 15 YRS OR MORE [facility] [place] [facility] Tobacco Use History This section includes a history of the smoking, or tobacco-related health factors, that were collected on or before the date of the Encounter. The data comes from the [place] facility where the Encounter took place. Date/Time Smoking Status/Tobacco Use Comment F acility Aug 04, 2023 09:00 AM VA-TOBACCO QUIT 15 YRS OR MORE [facility] [place] [facility] Aug 05, 2022 11:30 AM VA-TOBACCO NEVER USED [facility] [place] [facility] Aug 22, 2021 11:30 AM VA-TOBACCO NEVER USED [facility] [place] [facility] Apr 29, 2020 10:30 AM VA-TOBACCO NEVER USED [facility] [place] [facility] September 21, 2018 09:39 AM VA-TOBACCO FORMER USER [facility] [place] [facility] September 21, 2018 09:39 AM VA-TOBACCO QUIT 15 YRS OR MORE [facility] [place] [facility] Dec 31, 2017 02:50 PM QUIT TOBACCO USE > 7 YEARS AGO [facility] [place] [facility] Dec 31, 2016 09:33 AM QUIT TOBACCO USE > 7 YEARS AGO [facility] [place] [facility] Dec 31, 2016 09:31 AM QUIT TOBACCO USE 1 -7 YEARS AGO [facility] [place] [facility] Jan 08, 2016 01:57 PM QUIT TOBACCO USE > 7 YEARS AGO [facility] [place] [facility] Nov 15, 2014 10:48 AM QUIT TOBACCO USE > 7 YEARS AGO quit 1975 [facility] [place] [facility] Advance Directives: All historical and [...] Source Jan 01, 2005 ADVANCE DIRECTIVE MCNAIR-WEBSTER,KLAUS ANDAmalia ES [facility] [place] [facility] Encounter Notes: All associated encounter [...] court of law and presented to a geoscience professor), and 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 SESSION FOCUS: update from past month, symptoms, medical issues, recent events, measurement for baseline INTERVENTIONS: Psychotherapeutic Interventions: supportive counselng, measurement for baseline - 's symptoms are subclinical, planning around anniversary triggers, [...] cancel [place] for 12/30/2023 and reschedule as [place] will be out of town from 12/29/2023 until 01/12/2024 /darcy/ ROSENDO CRUZ PSYD PSYCHOLOGIST Signed: 11/03/2023 10:34 Receipt Acknowledged By: 11/03/2023 21:15 /es/ ELIEL ALEMAN, RN,MSN,PSYCH N.P., STAFF CLINICAL NURSE SPECIALIST ROSENDO CRUZ [facility]
--- OUTSIDE RECORDS SUMMARY | 2024-04-21 08:55 | XMS_ITS ---
Author Name Department of [place] Organization [place] Address [address] [place] [address] Care Team Providers Care Skin Drier Name Role Phone LINDA PALOMINO Primary Care [...] ION [facility] May 03, 2018 [id number] [phone] Tracey RAYO PATIENT [facility] M[facility]AL HE[facility] Jul 01, 2013 [id number] Tracey RAYO PATIENT CIGNA/NALC PREFERRED PROVIDER ORGANIZAT ION (PPO) [facility] Jul 01, 2013 32 [id number] Tracey RAYO PATIENT CIGNA/NALC PREFERRED PROVIDER ORGANIZAT ION (PPO) [facility] Jan 01, 2011 [id number] Tracey RAYO PATIENT CIGNA/NALC PREFERRED PROVIDER ORGANIZAT ION (PPO) [facility] HEALT H BENEF Jan 01, 2011 [id number] Tracey RAYO PATIENT MEDICARE (WNR) MEDICARE (M) PART B Jul 01, 2013 PART B [id number] [phone] Tracey RAYO PATIENT MEDICARE (WNR) MEDICARE (M) PART A Jul 01, 2013 PART A [id number] Tracey RAYO PATIENT MEDICARE (WNR) MEDICARE (M) PART A Jul 01, 2013 PART A [id number] Tracey RAYO PATIENT [facility] PREFERRED PROVIDER ORGANIZAT ION (PPO) [facility] May 03, 2018 32 [id number] [phone] Tracey RAYO PATIENT [facility] (MED PRIME) PREFERRED PROVIDER ORGANIZAT ION (PPO) [facility] FAM[facility] Jul 01, 2013 [id number] Tracey RAYOH PATIENT [facility] (MED PRIME) PREFERRED PROVIDER ORGANIZAT ION (PPO) [facility] Jul 01, 2013 32 [id number] Tracey RAYO PATIENT [facility] -MCR A ONLY Jul 01, 2013 [id number] Tracey RAYO PATIENT [facility]* Jan 01, 2011 [id number] Tracey RAYO PATIENT Selected Encounter This section includes the information on record at [place] for the Encounter. Date/Time Encounter Type Encounter Description Reason Provider Source Nov 03, 2023 10:04 AM Outpatient Encounter [facility]ENDO KOWALSKI [facility] Encounter Template Text not used by [place] Plan of Treatment: Future Appointments (+ 6 [...] 20 appointments. The data comes from all [place] treatment facilities. Appointment Date/Time Appointment Type Appointme nt Facility Name Jan 11, 2024 10:00 AM AMBULATORY - PSYCHIATRY [facility] [place] [facility] Jan 17, 2024 10:30 AM AMBULATORY - PSYCHIATRY [facility] [place] [facility] Feb 01, 2024 10:00 AM AMBULATORY - PSYCHIATRY [facility] [place] [facility] Feb 09, 2024 10:00 AM AMBULATORY - MEDICINE [facility] [place] [facility] Feb 11, 2024 10:45 AM AMBULATORY - NONE [facility] [place] [facility] Feb 16, 2024 11:30 AM AMBULATORY - NONE [facility] [place] [facility] Feb 22, 2024 01:45 PM AMBULATORY - MEDICINE [facility] [place] [facility] Mar 24, 2024 11:00 AM AMBULATORY - NONE [facility] [place] [facility] Apr 17, 2024 01:00 PM AMBULATORY - MEDICINE DC [facility] [facility] Social History: Smoking Status (Most [...] AM VA-TOBACCO QUIT 15 YRS OR MORE [place] [facility] [place] [facility] Tobacco Use History This section includes a history of the smoking, or tobacco-related health factors, that were collected on or before the date of the Encounter. The data comes from the [place] facility where the Encounter took place. Date/Time Smoking Status/Tobacco Use Comment F acility Aug 04, 2023 09:00 AM VA-TOBACCO QUIT 15 YRS OR MORE [facility] [place] [facility] Aug 05, 2022 11:30 AM VA-TOBACCO NEVER USED [facility] [place] [facility] Aug 22, 2021 11:30 AM VA-TOBACCO NEVER USED [facility] [place] [facility] Apr 29, 2020 10:30 AM VA-TOBACCO NEVER USED [facility] [place] [facility] September 21, 2018 09:39 AM [facility] September 21, 2018 09:39 AM VA-TOBACCO QUIT [facility] Dec 31, 2017 02:50 PM QUIT TOBACCO USE > [facility] A[facility] Dec 31, 2016 09:33 AM QUIT TOBACCO USE > [facility] A[facility] Dec 31, 2016 09:31 AM QUIT TOBACCO USE 1 -7 YE[facility] A[facility] Jan 08, 2016 01:57 PM QUIT TOBACCO USE > [facility] Nov 15, 2014 10:48 AM QUIT TOBACCO USE > 7 YEARS AGO quit [facility] Advance Directives: All historical and current Section Date Range: From patient's date of to the date document was created. This section includes ALL of a patient's completed or amended [place] Advance and Rescinded Directives. The entries below indicate that a directive exists for the patient, but an actual copy is not included with this document. The data comes from all [place] facilities. Date Advance Directives Provider Source Jan 01, 2005 ADVANCE DIRECTIVE [facility] Encounter Notes: All associated encounter [...] Date Given: 11/03/2023 Clinician: Rosendo Cruz Location: [facility]//yolande Wright/charlette/[place]: Mark RayoJr SSN: [id number] : [birth year]) Gender: Male [...] Date Given: 11/03/2023 Clinician: Rosendo Cruz Location: [facility]//[facility] [place]/charlette/[place]: EdmendozaMark rosen Jr SSN: [id number] : [birth year] ([birth year]) Gender: [...] Date Given: 11/03/2023 Clinician: Rosendo Cruz Location: [facility]/roxann/[place]ande [place] : aMrianaMark rosen Jr SSN: [id number] : [birth year] ([birth year]) Gender: [...] PSYD PSYCHOLOGIST Signed: 11/03/2023 10:40 ROSENDO CRUZ [place] [facility]
--- OUTSIDE RECORDS SUMMARY | 2024-04-21 08:56 | XMS_ITS | Encounter Summary ---
Author Name [facility] [place] Address [address] [place] [id number] Care Team Providers Care Paper Testing Supervisor Name Role Phone LINDA PALOMINO Primary [...] ION [facility] May 03, 2018 [id number] Tracey BLISS PATIENT [facility] HE[facility] Jul 01, 2013 [id number] Tracey BLISS PATIENT CIGNA/NALC PREFERRED PROVIDER ORGANIZAT ION (PPO) [facility] Jul 01, 2013 32 [id number] Tracey BLISS PATIENT CIGNA/NALC PREFERRED PROVIDER ORGANIZAT ION (PPO) [facility] Jan 01, 2011 [id number] Tracey BLISS PATIENT CIGNA/NALC PREFERRED PROVIDER ORGANIZAT ION (PPO) [facility] HEALT H BENEF Jan 01, 2011 [id number] Tracey BLISS PATIENT MEDICARE (WNR) MEDICARE (M) PART B Jul 01, 2013 PART B [id number] Tracey BLISS PATIENT MEDICARE (WNR) MEDICARE (M) PART A Jul 01, 2013 PART A [id number] Tracey BLISS PATIENT MEDICARE (WNR) MEDICARE (M) PART A Jul 01, 2013 PART A [id number] Tracey BLISS PATIENT [facility] PREFERRED PROVIDER ORGANIZAT ION (PPO) [facility] May 03, 2018 32 [id number] Tracey BLISS PATIENT [facility] (MED PRIME) PREFERRED PROVIDER ORGANIZAT ION (PPO) [facility] FAMIL Y Jul 01, 2013 322 [id number] Tracey BLISSH PATIENT [facility] (MED PRIME) PREFERRED PROVIDER ORGANIZAT ION (PPO) [facility] Jul 01, 2013 32 [id number] Tracey BLISSH PATIENT [facility] -MCR A ONLY Jul 01, 2013 [id number] Tracey BLISSH PATIENT [facility]* Jan 01, 2011 [id number] Tracey BLISS PATIENT Selected Encounter This section includes the information on record at [place] for the Encounter. Date/Time Encounter Type Encounter Description Reason Provider Source Apr 17, 2024 02:32 PM FIT SPECTACLES MULTIFOCAL OPTOMETRY ICD-10-CM Z46.0 Encounter for fit/adjst of spectacles and contact lenses MENDY REDDING Encounter Template Text not used by [place] Assessments - Encounter Diagnoses This section includes the primary and secondary diagnoses documented for the Encounter. Date/Time Primary/Secondary Diagnosis Diagnosis Name Provider Source Apr 17, 2024 02:32 PM PRIMARY Encounter for fit/adjst of spectacles and contact lenses PRINCESS CHARLES [place] [facility] [place] [facility] Plan of Treatment: Future Appointments (+ 6 months) and Future Tests (+/- 45 days) The Plan of Treatment section includes future care activities for the patient [facility] [place] [facility]. This section includes future [...] 16, 2024 10:00 AM AMBULATORY - [facility] May 16, 2024 11:30 AM AMBULATORY MEDICINE [facility] NTRL TRN [facility] May 23, 2024 11:30 AM AMB[facility] May 24, 2024 10:30 AM AMBULATORY MEDICINE [facility] NTRL TRN [facility] May 30, 2024 10:00 AM AMBULATORY PS[facility]CHIATRY [facility] Jun 13, 2024 10:00 AM AMBULATORY PS[facility]CHIATRY [facility] Jun 27, 2024 10:00 AM [facility] Social History: Smoking Status (Most current) [...] ity Aug 04, 2023 09:00 AM [place]-TOBACCO QUIT 15 YRS OR MORE [facility] Tobacco Use History This section includes a history of the smoking, or tobacco-related health factors, that were collected on or before the date of the Encounter. The data comes from the [place] facility where the Encounter took place. Date/Time Smoking Status/Tobacco Use Comment F acility Aug 04, 2023 09:00 AM [place]-TOBACCO QUIT 15 YRS OR MORE [facility] Aug 05, 2022 11:30 AM [place]-TOBACCO NEVER USED [facility] Aug 22, 2021 11:30 AM VA-TOBACCO NEVER USED [facility] Apr 29, 2020 10:30 AM VA-TOBACCO NEVER USED [place] [facility] [place] [facility] September 21, 2018 09:39 AM VA-TOBACCO FORMER USER [place] [facility] [place] [facility] September 21, 2018 09:39 AM VA-TOBACCO QUIT 15 YRS OR MORE [facility] Dec 31, 2017 02:50 PM QUIT TOBACCO USE > 7 YEARS AGO [place] [facility] [place] [facility] Dec 31, 2016 09:33 AM QUIT TOBACCO USE > 7 YEARS AGO [place] [facility] [place] [facility] Dec 31, 2016 09:31 AM QUIT TOBACCO USE 1 -7 YEARS AGO [place] [facility] [place] [facility] Jan 08, 2016 01:57 PM QUIT TOBACCO USE > 7 YEARS AGO [facility] Nov 15, 2014 10:48 AM QUIT TOBACCO USE > 7 YEARS AGO quit 1975 [facility] Advance Directives: All historical and [...] 01, 2005 ADVANCE DIRECTIVE KLAUS PAZ ES [facility]N [facility] Encounter Notes: All associated encounter notes This section contains the clinical notes associated to the Encounter. Date/Time Encounter Note(s) Provider Source Apr 17, 2024 02:32 PM OPTOMETRY NOTE: LOCAL TITLE: OPTOMETRY NOTE STANDARD TITLE: OPTOMETRY NOTE DATE OF NOTE: APR 17, 2024@14:32 ENTRY DATE: APR 17, 2024@14:32:59 AUTHOR: SHAGGY DUMONT COSIGNER: URGENCY: STATUS: COMPLETED OPTOMETRY NOTE Has ADDENDA The quote provided below is for informational purposes only. Please verify prior to the creation of a purchase order. NED BLISS [id number] RX INFORMATION OD +2.75 -1.25 X86 Add:+2.50 Pzm:0.00 Dir: Prz2:0.00 Dir2: OS +2.50 -1.25 X90 Add:+2.50 Pzm:0.00 Dir: Prz2:0.00 Dir2: FITTING INFORMATION FPD: NPD: Runnels:R:30 L:33 SEG HT:R:27 L:27 Tint:None Shade:None VA Billable Items FRAME: CleanAppMETAL [id number] Right Lens: PLASTIC VA PROGRESSIVE PHOTOCHROMIC ARCOS 1.498 PLASTIC CR39 Left Lens: PLASTIC VA PROGRESSIVE PHOTOCHROMIC ARCOS 1.498 PLASTIC CR39 KLEAR ANTI-REFLECTIVE COATING CLIN items Open Market - AR Coating 0004 - Progressive - Glass Plastic Poly 0005 - Transition /darcy/ SHAGGY DUMONT SHEEP SORTER Signed: 04/17/2024 14:33 Receipt Acknowledged By: 04/17/2024 14:34 /darcy/ Princess Charles LPN Licensed Practical Nurse 04/17/2024 ADDENDUM STATUS: COMPLETED PDS bed control specialist fit 1 PAL eyeglasses on 04/17/2024. OPT HT entered consult(s) as requested for provider signature. /darcy/ Princess Charles LPN Licensed Practical Nurse Signed: 04/17/2024 14:36 SHAGGY DUMONT CNTRL W[facility]
--- OUTSIDE RECORDS SUMMARY | 2024-04-21 08:56 | XMS_ITS ---
Author Name [facility] [place] Address [address] [place] [address] Care Team Providers Care Lining Ironer Name Role Phone LINDA PALOMINO Primary Care [...] Relationship to Policy Banegas CAREMARK PRESCRIPT ION [facility] May 03, 2018 [id number] Tracey BLISS PATIENT [facility] MENTAL HEALTH [facility] Jul 01, 2013 [id number] [facility] CIGNA/NALC PREFERRED PROVIDER ORGANIZAT ION (PPO) [facility] Jul 01, 2013 32 [id number] [facility] CIGNA/NALC PREFERRED PROVIDER ORGANIZAT ION (PPO) [facility] Jan 01, 2011 [id number] Tracey BLISS PATIENT CIGNA/NALC PREFERRED PROVIDER ORGANIZAT ION (PPO) [facility] HEALT H BENEF Jan 01, 2011 [id number] Tracey BLISS PATIENT MEDICARE (WNR) MEDICARE (M) PART B Jul 01, 2013 PART B [id number] Tracey BLISS PATIENT MEDICARE (WNR) MEDICARE (M) PART A Jul 01, 2013 PART A [id number] Tracey BLISS PATIENT MEDICARE (WNR) MEDICARE (M) PART A Jul 01, 2013 PART A [id number] Tracey BLISS PATIENT [facility] PREFERRED PROVIDER ORGANIZAT ION (PPO) [facility] May 03, 2018 32 [id number] Tracey BLISS PATIENT [facility] (MED PRIME) PREFERRED PROVIDER ORGANIZAT ION (PPO) [facility] FAMIL Y Jul 01, 2013 [id number] Tracey BLISS PATIENT [facility] (MED PRIME) PREFERRED PROVIDER ORGANIZAT ION (PPO) [facility] Jul 01, 2013 32 [id number] Tracey BLISS PATIENT [facility] -MCR A ONLY Jul 01, 2013 [id number] Tracey BLISS PATIENT [facility]* Jan 01, 2011 [id number] Tracey BLISS PATIENT Selected Encounter This section includes the information on record at [place] for the Encounter. Date/Time Encounter Type Encounter Description Reason Pro vider Source Feb 22, 2024 12:00 AM Outpatient Encounter COMMUNITY CARE CONSULT IHE Encounter [...] 20 appointments. The data comes from all [place] treatment facilities. Appointment Date/Time Appointment Type Appointme nt Facility Name Mar 24, 2024 11:00 AM AMBULATORY - NONE [place] [facility] [place] [facility] Apr 17, 2024 01:00 PM AMBULATORY - MEDICINE [facility] [place] [facility] May 16, 2024 10:00 AM AMBULATORY - PSYCHIATRY [facility] [place] [facility] May 16, 2024 11:30 AM AMBULATORY - MEDICINE [facility] [place] [facility] May 23, 2024 11:30 AM AMBULATORY - PSYCHIATRY [facility] [place] [facility] May 24, 2024 10:30 AM AMBULATORY - MEDICINE [facility] C [facility] [place] [facility] May 30, 2024 10:00 AM AMBULATORY - PSYCHIATRY [facility] [place] [facility] Jun 13, 2024 10:00 AM AMBULATORY - PSYCHIATRY [facility] [place] [facility] Jun 27, 2024 10:00 AM AMBULATORY - PSYCHIATRY [place] [facility] [place] [facility] Social History: Smoking Status (Most current) and Tobacco Use (All prior to encounter date) This section includes the most current, and the historical, smoking and tobacco- related health factors from the [place] facility where the Encounter took place. Current Smoking Status This section includes the most current smoking, or tobacco-related health factor, from the [place] facility where the Encounter took place. Date/Time Current Smoking Status Comment Nora pardoy Aug 04, 2023 09:00 AM VA-TOBACCO FORMER USER [place] [facility] Tobacco Use History This section includes a history of the smoking, or tobacco-related health factors, that were collected on or before the date of the Encounter. The data comes from the [place] facility where the Encounter took place. Date/Time Smoking Status/Tobacco Use Comment F acility Aug 04, 2023 09:00 AM VA-TOBACCO QUIT 15 YRS OR MORE [facility] [place] [facility] Aug 05, 2022 11:30 AM VA-TOBACCO NEVER USED [facility] [place] [facility] Aug 22, 2021 11:30 AM VA-TOBACCO NEVER USED [facility] [place] [facility] Apr 29, 2020 10:30 AM VA-TOBACCO NEVER USED [facility] [place] [facility] September 21, 2018 09:39 AM VA-TOBACCO [facility] September 21, 2018 09:39 AM VA-TOBACCO QUIT 15 YRS OR MORE [facility] Dec 31, 2017 02:50 PM QUIT TOBACCO USE > 7 YEARS AGO [facility] Dec 31, 2016 09:33 AM QUIT TOBACCO USE > 7 YEARS AGO [facility] Dec 31, 2016 09:31 AM QUIT TOBACCO USE 1 -7 YEARS AGO [facility] Jan 08, 2016 01:57 PM QUIT TOBACCO USE > 7 YEARS AGO [facility] Nov 15, 2014 10:48 AM QUIT TOBACCO USE > 7 YEARS AGO quit 1975 [facility] Advance Directives: All historical and current Section Date Range: From patient's date of to the date document was created. This section includes ALL of a patient's completed or amended [place] Advance and Rescinded Directives. The entries below indicate that a directive exists for the patient, but an actual copy is not included with this document. The data comes from all [place] facilities. Date Advance Directives Provider Source Jan 01, 2005 ADVANCE DIRECTIVE KLAUS PAZ [facility] Encounter Notes: All associated encounter notes This section contains the clinical notes associated to the Encounter. Date/Time Encounter Note(s) Provider Source Feb 22, 2024 12:00 AM NONVA CONSULT: LOCAL TITLE: COMMUNITY CARE-CONSULT RESULT NOTE STANDARD TITLE: NONVA CONSULT DATE OF NOTE: FEB 22, 2024 ENTRY DATE: MAR 21, 2024@11:15:23 AUTHOR: ANTHONY ABDI EXP COSIGNER: URGENCY: STATUS: COMPLETED VistA Imaging - Scanned Document SCANNED DOCUMENT SIGNATURE NOT REQUIRED Electronically Filed: 03/21/2024 by: ANTHONY JAMES [facility]
--- OUTSIDE RECORDS SUMMARY | 2024-04-21 08:56 | XMS_ITS | Encounter Summary ---
Author Name [facility] [place] Address [address] [place] [address] Care Team Providers Care Integrated Specialist Name Role Phone LINDA PALOMINO Primary Care [...] Relationship to Policy Banegas CAREMARK PRESCRIPT ION [facility] May 03, 2018 [id number] Tracey BLISS PATIENT [employer] [facility] MENTAL HEALTH [facility] Jul 01, 2013 322 [id number] [facility] CIGNA/NALC PREFERRED PROVIDER ORGANIZAT ION (PPO) [facility] Jul 01, 2013 32 [id number] Tracey BLISS PATIENT CIGNA/NALC PREFERRED PROVIDER ORGANIZAT ION (PPO) [facility] Jan 01, 2011 [id number] Tracey BLISS PATIENT CIGNA/NALC PREFERRED PROVIDER ORGANIZAT ION (PPO) [facility] HEALT H BENEF Jan 01, 2011 [id number] Tracey BLISS PATIENT MEDICARE (WNR) MEDICARE (M) PART B Jul 01, 2013 PART B [id number] Tracey BLISS PATIENT MEDICARE (WNR) MEDICARE (M) PART A Jul 01, 2013 PART A [id number] Tracey BLISS PATIENT MEDICARE (WNR) MEDICARE (M) PART A Jul 01, 2013 PART A [id number] Tracey BLISS PATIENT [facility] PREFERRED PROVIDER ORGANIZAT ION (PPO) [facility] May 03, 2018 32 [id number] Tracey BLISS PATIENT [facility] (MED PRIME) PREFERRED PROVIDER ORGANIZAT ION (PPO) [facility] FAMIL Y Jul 01, 2013 322 [id number] Tracey BLISSH PATIENT [facility] (MED PRIME) PREFERRED PROVIDER ORGANIZAT ION (PPO) [facility] Jul 01, 2013 32 [id number] Tracey BLISS PATIENT [facility] HE[facility] -MCR A ONLY Jul 01, 2013 [id number] Tracey BLISS PATIENT [facility]* Jan 01, 2011 [id number] Tracey BLISS PATIENT Selected Encounter This section includes the information on record at [place] for the Encounter. Date/Time Encounter Type Encounter Description Reason Provider Source Feb 11, 2024 10:45 AM DENTAL BITEWING FOUR IMAGES DENTAL ICD-10-CM K03.6 Deposits [accretions] on teeth LISA SERNA Opal I[facility] Encounter Template Text not used by [place] Assessments - Encounter Diagnoses This section includes the primary and secondary diagnoses documented for the Encounter. Date/Time Primary/Secondary Diagnosis Diagnosis Name Provider Source Feb 11, 2024 12:44 PM PRIMARY Deposits [accretions] on teeth JANN BUSCH [place] [facility] [place] [facility] Feb 11, 2024 12:44 PM SECONDARY Disorder of teeth and supporting structures, unspecified JANN BUSCH [place] [facility] [place] [facility] Plan of Treatment: Future Appointments (+ 6 months) and Future Tests (+/- 45 days) The Plan of Treatment section includes future care activities for the patient [facility] [place] [facility] This section includes future appointments [...] 16, 2024 11:30 AM AMBULATORY - NONE [place] [facility] [place] [facility] Feb 22, 2024 01:45 PM AMBULATORY - MEDICINE MT C [facility] [place] [facility] Mar 24, 2024 11:00 AM AMBULATORY - NONE [place] [facility] [place] [facility] Apr 17, 2024 01:00 PM AMBULATORY - MEDICINE MT C [place] [place] [facility] May 16, 2024 10:00 AM AMBULATORY - PSYCHIATRY [place] [facility] [place] [facility] May 16, 2024 11:30 AM AMBULATORY - MEDICINE MT C [place] [place] [facility] May 23, 2024 11:30 AM AMBULATORY - PSYCHIATRY MT [facility] [place] [facility] May 24, 2024 10:30 AM AMBULATORY - MEDICINE MT C [facility] [place] [facility] May 30, 2024 10:00 AM AMBULATORY - PSYCHIATRY MT [facility] [place] [facility] Jun 13, 2024 10:00 AM AMBULATORY - PSYCHIATRY [place] [facility] [place] [facility] Jun 27, 2024 10:00 AM AMBULATORY - PSYCHIATRY [place] [facility] [place] [facility] Vital Signs: All taken on the encounter date This section contains inpatient and outpatient Vital Signs collected on the date of the Encounter. Date/Time Temperature Pulse Blood Pressure Respiratory Rate SP02 Pain Height Weight Body Mass Index Source Feb 11, 2024 10:36 AM 64 171/92 0 [place] [facility] [place] [facility] Social History: Smoking Status (Most current) [...] AM VA-TOBACCO QUIT 15 YRS OR MORE [facility] [place] [facility] Tobacco Use History This section includes a history of the smoking, or tobacco-related health factors, that were collected on or before the date of the Encounter. The data comes from the [place] facility where the Encounter took place. Date/Time Smoking Status/Tobacco Use Comment F acility Aug 04, 2023 09:00 AM VA-TOBACCO QUIT 15 YRS OR MORE [place] [facility] [place] [facility] Aug 05, 2022 11:30 AM VA-TOBACCO NEVER USED [place] [facility] [place] [facility] Aug 22, 2021 11:30 AM VA-TOBACCO NEVER USED MT [facility] [place] [facility] Apr 29, 2020 10:30 AM VA-TOBACCO NEVER USED MT [facility] [place] [facility] September 21, 2018 09:39 AM VA-TOBACCO FORMER USER [place] [facility] [place] [facility] September 21, 2018 09:39 AM VA-TOBACCO QUIT 15 YRS OR MORE [place] [facility] [place] [facility] Dec 31, 2017 02:50 PM QUIT TOBACCO USE > 7 YEARS AGO [facility] [place] [facility] Dec 31, 2016 09:33 AM QUIT TOBACCO USE > 7 YEARS AGO MT [facility] [place] [facility] Dec 31, 2016 09:31 AM QUIT TOBACCO USE 1 -7 YEARS AGO MT [facility] [place] [facility] Jan 08, 2016 01:57 PM QUIT TOBACCO USE > 7 YEARS AGO MT [facility] [place] [facility] Nov 15, 2014 10:48 AM QUIT TOBACCO USE > 7 YEARS AGO [facility] [place] [facility] Advance Directives: All historical and current Section [...] Jan 01, 2005 ADVANCE DIRECTIVE KLAUS PAZ [facility] Encounter Notes: All associated encounter notes [...] Staff Dentist Signed: 02/11/2024 15:50 JANN BUSCH [facility] Feb 11, 2024 03:38 PM DENTISTRY NOTE: LOCAL TITLE: DENTAL NOTE STANDARD TITLE: DENTISTRY NOTE DATE OF NOTE: FEB 11, 2024@15:38 ENTRY DATE: FEB 11, 2024@15:49:36 AUTHOR: JANN BUSCH EXP COSIGNER: URGENCY: STATUS: COMPLETED Patient Name: NED BLISS JR, : 1950, Age: 73 Visit: V: Feb 11, 2024@10:[address] [facility] [address] AM NEW. Primary PCE Diagnosis: K03.6. 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) Allergic Rhinitis ([facility] [id number]) Basal cell carcinoma of skin ([facility] 506113149) Hyperlipidemia ([facility] [id number]) Anxiety ([facility] [id number]) Hemorrhoid ([facility] [id number]) Under care of multiple providers ([facility] [id number]) History of surgery ([facility] [id number]) Ulcerative colitis ([facility] [id number]) Posttraumatic stress disorder ([facility] [id number]) Chronic sinusitis ([facility] 23736854) Neck pain ([facility] 35833509) Tinnitus ([facility] 78195267) Active Medications: ---- Outpatient Medication ---- BUPROPION [...] 02/11/2024 15:49 Receipt Acknowledged By: 02/15/2024 14:05 /darcy/ ASHUTOSH MERCEDES DMD Staff Dentist JANN BUSCH [facility] [place] [facility] Feb 11, 2024 12:42 PM DENTISTRY NOTE: LOCAL TITLE: DENTAL NOTE STANDARD TITLE: DENTISTRY NOTE DATE OF NOTE: FEB 11, 2024@12:42 ENTRY DATE: FEB 11, 2024@12:44:53 AUTHOR: ROBERT SERNA COSIGNER: URGENCY: STATUS: COMPLETED Patient Name: NED BLISS , : 1950, Age: 73 Visit: S: Feb 11, 2024@10:45 [facility] [address] AM NEW. Primary PCE Diagnosis: K03.6 [...] RADIOGRAPHS: PANO 08/23 BWX 08/23 NEW RADIOGRAPHS: bwx SOFT TISSUE SCREENING: no abnormalities noted EXAMINATION: Dr Bro see dr jimenes ORAL HYGIENE ASSESSMENT: plaque light stain light PERIODONTAL ASSESSMENT: calculus light inflamation light bop light probing deepth 2-4 mm recession general REVIEWED ORAL HEALTH REPORT: CARIES RISK: moderate GUM DISEASE: high ORAL CANCER RISK: low DENTAL TREATMENT PROVIDED: PROPHYLAXIS: hand scaling, piezo, japanese TOPICAL FLUORIDE APPLICATION - [place] pre post procedular rinse 30 sec ORAL HYGIENE INSTRUCTIONS GIVEN TO PATIENT: [place] your teeth at least twice a day [...] 6 mo recall /darcy/ ROBERT SERNA RDH RD, DENTAL SERVICE Signed: 02/11/2024 12:44 ROBERT SERNA CNTRL [facility]
--- OUTSIDE RECORDS SUMMARY | 2024-04-21 08:56 | XMS_ITS ---
Author Name Department of [place] Organization Department of [place] Address [address] [place] [address] Care Team Providers Care Fiber Optic Splicer Name Role Phone LINDA PALOMINO Primary Care [...] to Policy Banegas [facility]EM[facility] PRESCRIPT ION [facility] May 03, 2018 [id number] Tracey BLISS PATIENT [facility] [facility] Jul 01, 2013 [id number] [facility] CIGNA/NALC PREFERRED PROVIDER ORGANIZAT ION (PPO) [facility] Jul 01, 2013 32 [id number] Tracey BLISS PATIENT CIGNA/NALC PREFERRED PROVIDER ORGANIZAT ION (PPO) [facility] Jan 01, 2011 [id number] [facility] PATIENT CIGNA/NALC PREFERRED PROVIDER ORGANIZAT ION (PPO) [facility] HEALT H BENEF Jan 01, 2011 [id number] Tracey BLISS PATIENT MEDICARE (WNR) MEDICARE (M) PART B Jul 01, 2013 PART B [id number] Tracey BLISS PATIENT MEDICARE (WNR) MEDICARE (M) PART A Jul 01, 2013 PART A [id number] Tracey BLISS PATIENT MEDICARE (WNR) MEDICARE (M) PART A Jul 01, 2013 PART A [id number] [phone] Tracey BLISS PATIENT [facility] PREFERRED PROVIDER ORGANIZAT ION (PPO) [facility] May 03, 2018 32 [id number] Tracey BLISS PATIENT [facility] (MED PRIME) PREFERRED PROVIDER ORGANIZAT ION (PPO) [facility] FAM[facility] Jul 01, 2013 [id number] Tracey BLISS PATIENT [facility] (MED PRIME) PREFERRED PROVIDER ORGANIZAT ION (PPO) [facility] Jul 01, 2013 32 [id number] Tracey BLISS PATIENT [facility] -MCR A ONLY Jul 01, 2013 [id number] Tracey BLISS PATIENT [facility]* Jan 01, 2011 [id number] Tracey BLISS PATIENT Selected Encounter This section includes the information on record at [place] for the Encounter. Date/Time Encounter Type Encounter Description Reason Provider Source Feb 16, 2024 11:30 AM RE-EVAL,EST PT,PROBLEM FOCUS DENTAL ICD-10-CM K08.9 Disorder of teeth and supporting structures, unspecified ASHUTOSH MERCEDES Morgan Encounter Template Text not used by DC Assessments - Encounter Diagnoses This section includes the primary and secondary diagnoses documented for the Encounter. Date/Time Primary/Secondary Diagnosis Diagnosis Name Provider Source Feb 16, 2024 01:51 PM PRIMARY Disorder of teeth and supporting structures, unspecified ASHUTOSH MERCEDES [place] [facility] [place] [facility] Plan of Treatment: Future Appointments (+ 6 months) and Future Tests (+/- 45 days) The Plan of Treatment section includes future care activities for the patient from all [place] [facility]. This section includes future appointments and future [...] 22, 2024 01:45 PM AMBULATORY - MEDICINE DC [facility] [place] [facility] Mar 24, 2024 11:00 AM AMBULATORY - NONE DC [facility] [place] [facility] Apr 17, 2024 01:00 PM AMBULATORY - MEDICINE DC [facility] [place] [facility] May 16, 2024 10:00 AM AMBULATORY - PSYCHIATRY DC [facility] [place] [facility] May 16, 2024 11:30 AM AMBULATORY - MEDICINE DC [facility] [place] [facility] May 23, 2024 11:30 AM AMBULATORY - PSYCHIATRY DC [facility] [place] [facility] May 24, 2024 10:30 AM AMBULATORY - MEDICINE DC [facility] [place] [facility] May 30, 2024 10:00 AM AMBULATORY - PSYCHIATRY DC [facility] [place] [facility] Jun 13, 2024 10:00 AM AMBULATORY - PSYCHIATRY DC [facility] [place] [facility] Jun 27, 2024 10:00 AM AMBULATORY - PSYCHIATRY DC [facility] [place] [facility] Social History: Smoking Status (Most current) and Tobacco Use (All prior to encounter date) This section includes the most current, and the historical, smoking and tobacco- related health factors from the [place] facility where the Encounter took place. Current Smoking Status This section includes the most current smoking, or tobacco-related health factor, from the [place] facility where the Encounter took place. Date/Time Current Smoking Status Comment Facil ity Aug 04, 2023 09:00 AM VA-TOBACCO FORMER USER [facility] Tobacco Use History This section includes a history of the smoking, or tobacco-related health factors, that were collected on or before the date of the Encounter. The data comes from the [place] facility where the Encounter took place. Date/Time Smoking Status/Tobacco Use Comment F acility Aug 04, 2023 09:00 AM VA-TOBACCO QUIT 15 YRS OR MORE DC [facility] [place] [facility] Aug 05, 2022 11:30 AM VA-TOBACCO NEVER USED DC [facility] [place] [facility] Aug 22, 2021 11:30 AM VA-TOBACCO NEVER USED [facility] Apr 29, 2020 10:30 AM VA-TOBACCO NEVER USED [facility] September 21, 2018 09:39 AM VA-TOBACCO FORMER USER DC [facility] [place] [facility] September 21, 2018 09:39 AM VA-TOBACCO QUIT 15 YRS OR MORE [facility] Dec 31, 2017 02:50 PM QUIT TOBACCO USE > 7 YEARS AGO DC [facility] [place] [facility] Dec 31, 2016 09:33 AM QUIT TOBACCO USE > 7 YEARS AGO DC [facility] [place] [facility] Dec 31, 2016 09:31 AM QUIT TOBACCO USE 1 -7 YEARS AGO DC [facility] [place] [facility] Jan 08, 2016 01:57 PM QUIT TOBACCO USE > 7 YEARS AGO DC [facility] [place] [facility] Nov 15, 2014 10:48 AM QUIT TOBACCO USE > 7 YEARS AGO quit [facility] Advance Directives: All [...] Jan 01, 2005 ADVANCE DIRECTIVE KLAUS PAZ [place] [facility] Encounter Notes: All associated encounter notes This section contains the clinical notes associated to the Encounter. Date/Time Encounter Note(s) Provider Source Feb 16, 2024 01:50 PM DENTISTRY NOTE: LOCAL TITLE: DENTAL NOTE STANDARD TITLE: DENTISTRY NOTE DATE OF NOTE: FEB 16, 2024@13:50 ENTRY DATE: FEB 16, 2024@13:51:58 AUTHOR: MERCEDES,LEI EXP COSIGNER: URGENCY: STATUS: COMPLETED Patient Name: NED BLISS JR, : 1950, Age: 73 Visit: S: Feb 16, 2024@11:30 [facility] DENTAL DMD 3 AM. Primary PCE [...] presents for re-evaluation I would like a driver guard Vital Signs: Vital signs not obtained Past Medical History and Medications: No significant changes since the last dental visit Oral Examination: Other: Upper impression taken for fabricating the driver guard. Assessment/Plan: No contraindications for planned procedure(s). Planned Procedures: Unsequenced ([id number]) OCCLUSAL GUARD SOFT: . DX: (). Reviewed risks/benefits/alternatives associated with the proposed treatment plan. Patient agrees to treatment plan as discussed. Disposition: Next visit: Delivery driver guard, t+4w, 30mins Patient to return to dental clinic for continuing care. - - - - - - - - - - - - - - - - - - - - - - - - - - - - - - /darcy/ ASHUTOSH MERCEDES DMD Staff Dentist Signed: 02/16/2024 13:51 ASHUTOSH MERCEDES DC [facility]
--- OUTSIDE RECORDS SUMMARY | 2024-04-21 08:56 | XMS_ITS | Encounter Summary ---
Author Name Department of Vetera Affairs ([place]) Organization Department of Vetera Affairs [place] Address [address] [place] [address] Care Team Providers Care Heel Washer Stringing Machine Operator Name Role Phone LINDA PALOMINO Primary [...] [facility] May 03, 2018 [id number] Tracey BLISS PATIENT CIGNA BEHAVIORAL HEALTH MENTAL HEALTH [facility] Jul 01, 2013 [id number] [facility] CIGNA/NALC PREFERRED PROVIDER ORGANIZAT ION (PPO) [facility] Jul 01, 2013 32 [id number] [phone] [facility] CIGNA/NALC PREFERRED PROVIDER ORGANIZAT ION (PPO) [facility] Jan 01, 2011 321 [id number] [phone] Tracey BLISS PATIENT CIGNA/NALC PREFERRED PROVIDER ORGANIZAT ION (PPO) [facility] HEALT H BENEF Jan 01, 2011 [id number] [phone] Tracey BLISS PATIENT MEDICARE (WNR) MEDICARE (M) PART B Jul 01, 2013 PART B [id number] [phone] Tracey BLISS PATIENT MEDICARE (WNR) MEDICARE (M) PART A Jul 01, 2013 PART A [id number] Tracey LBISS PATIENT MEDICARE (WNR) MEDICARE (M) PART A Jul 01, 2013 PART A [id number] Tracey BLISS PATIENT [facility] PREFERRED PROVIDER ORGANIZAT ION (PPO) [facility] May 03, 2018 32 [id number] [phone] Tracey BLISS PATIENT [facility] (MED PRIME) PREFERRED PROVIDER ORGANIZAT ION (PPO) [facility] FAM[facility] Jul 01, 2013 [id number] Tracey BLISS PATIENT [facility] (MED PRIME) PREFERRED PROVIDER ORGANIZAT ION (PPO) [facility] Jul 01, 2013 32 [id number] Tracey BLISS PATIENT [facility] -MCR A ONLY Jul 01, 2013 [id number] Tracey BLISS PATIENT [facility]* Jan 01, 2011 [id number] Tracey BLISS PATIENT Selected Encounter This section includes the information on record at [place] for the Encounter. Date/Time Encounter Type Encounter Description Reason Pro vider Source Feb 15, 2024 09:41 AM Outpatient Encounter DENTAL IHE Encounter Template Text not used by VA Plan of Treatment: Future Appointments (+ 6 months) and Future Tests (+/- 45 days) The Plan of Treatment section includes future care activities for the patient from all [place] treatmentfacilities. This section includes future appointments and future orders which are active, pending or scheduled. Future Appointments This section includes appointments that were scheduled to occur 6 months from the date of the Encounter, up to a maximum of 20 appointments. The data comes from all [place] treatment facilities. Appointment Date/Time Appointment Type Appointme nt Facility Name Feb 16, 2024 11:30 AM AMBULATORY - NONE [facility] [place] [facility] Feb 22, 2024 01:45 PM AMBULATORY - MEDICINE [place] [facility] [place] [facility] Mar 24, 2024 11:00 AM AMBULATORY - NONE [facility] [place] [facility] Apr 17, 2024 01:00 PM AMBULATORY - MEDICINE [place] [facility] [place] [facility] May 16, 2024 10:00 AM AMBULATORY - PSYCHIATRY [facility] [place] [facility] May 16, 2024 11:30 AM AMBULATORY - MEDICINE [place] [facility] [place] [facility] May 23, 2024 11:30 AM AMBULATORY - PSYCHIATRY [facility] [place] [facility] May 24, 2024 10:30 AM AMBULATORY - MEDICINE [place] [facility] [place] [facility] May 30, 2024 10:00 AM AMBULATORY - PSYCHIATRY [place] [facility] [place] [facility] Jun 13, 2024 10:00 AM AMBULATORY - PSYCHIATRY [place] [facility] [place] [facility] Jun 27, 2024 10:00 AM AMBULATORY - PSYCHIATRY [place] [facility] [place] [facility] Social History: Smoking Status (Most current) and Tobacco Use (All prior to encounter date) This section includes the most current, and the historical, smoking and tobacco- related health factors from the [place] facility where the Encounter took place. Current Smoking Status This section includes the most current smoking, or tobacco-related health factor, from the [place] facility where the Encounter took place. Date/Time Current Smoking Status Comment Facil ity Aug 04, 2023 09:00 AM VA-TOBACCO QUIT 15 YRS OR MORE [place] [facility] [place] [facility] Tobacco Use History This section includes a history of the smoking, or tobacco-related health factors, that were collected on or before the date of the Encounter. The data comes from the [place] facility where the Encounter took place. Date/Time Smoking Status/Tobacco Use Comment F acility Aug 04, 2023 09:00 AM VA-TOBACCO QUIT 15 YRS OR MORE [facility] [place] [facility] Aug 05, 2022 11:30 AM VA-TOBACCO NEVER USED [place] [facility] [place] [facility] Aug 22, 2021 11:30 AM VA-TOBACCO NEVER USED [place] [facility] [place] [facility] Apr 29, 2020 10:30 AM VA-TOBACCO NEVER USED [place] [facility] [place] [facility] September 21, 2018 09:39 AM VA-TOBACCO FORMER USER VA [facility] [place] [facility] September 21, 2018 09:39 AM VA-TOBACCO QUIT 15 YRS OR MORE [place] [facility] [place] [facility] Dec 31, 2017 02:50 PM QUIT TOBACCO USE > 7 YEARS AGO [facility] [place] [facility] Dec 31, 2016 09:33 AM QUIT TOBACCO USE > 7 YEARS AGO [facility] [place] [facility] Dec 31, 2016 09:31 AM QUIT TOBACCO USE 1 -7 YEARS AGO [facility] [place] [facility] Jan 08, 2016 01:57 PM QUIT TOBACCO USE > 7 YEARS AGO [place] [facility] [place] [facility] Nov 15, 2014 10:48 AM QUIT TOBACCO USE > 7 YEARS AGO quit [facility] Advance Directives: All historical and current Section Date Range: From patient's date of to the date document was created. This section includes ALL of a patient's completed or amended [place] Advance and Rescinded Directives. The entries below indicate that a directive exists for the patient, but an actual copy is not included with this document. The data comes from all [place] facilities. Date Advance Directives Provider Source Jan 01, 2005 ADVANCE DIRECTIVE KLAUS PAZ [place] [facility] Encounter Notes: All associated encounter [...] 11:30 am. /darcy/ LUIS FERNANDO MACEDO ADVANCED PAINTER HAND Signed: 02/15/2024 09:41 LUIS FERNANDO MACEDO [facility]
--- OUTSIDE RECORDS SUMMARY | 2024-04-21 08:56 | XMS_ITS ---
Author Name Department [place] Organization [place] Address [address] [place] [address] Care Team Providers Care Rehab Liaison Name Role Phone LINDA PALOMINO Primary Care [...] Relationship to Policy Banegas CAREMARK PRESCRIPT ION [facility] May 03, 2018 [id number] Tracey BLISS PATIENT C[employer] BEHAVIORAL HEALTH MENTAL HEALTH [facility] Jul 01, 2013 [id number] Tracey BLISS PATIENT CIGNA/NALC PREFERRED PROVIDER ORGANIZAT ION (PPO) [facility] Jul 01, 2013 32 [id number] [phone] Tracey BLISS PATIENT CIGNA/NALC PREFERRED PROVIDER ORGANIZAT ION (PPO) [facility] Jan 01, 2011 321 [id number] [phone] Tracey BLISS PATIENT CIGNA/NALC PREFERRED PROVIDER ORGANIZAT ION (PPO) [facility] HEALT H BENEF Jan 01, 2011 [id number] Tracey BLISS PATIENT MEDICARE (WNR) MEDICARE (M) PART B Jul 01, 2013 PART B [id number] Tracey BLISS PATIENT MEDICARE (WNR) MEDICARE (M) PART A Jul 01, 2013 PART A [id number] [phone] Tracey BLISS PATIENT MEDICARE (WNR) MEDICARE (M) PART A Jul 01, 2013 PART A [id number] [phone] Tracey BLISS PATIENT [facility] PREFERRED PROVIDER ORGANIZAT ION (PPO) [facility] May 03, 2018 32 [id number] [phone] Tracey BLISS PATIENT [facility] (MED PRIME) PREFERRED PROVIDER ORGANIZAT ION (PPO) [facility] FAM[facility] Jul 01, 2013 322 [id number] Tracey BLISS PATIENT [facility] (MED PRIME) PREFERRED PROVIDER ORGANIZAT ION (PPO) [facility] Jul 01, 2013 32 [id number] Tracey BLISS PATIENT [facility] -MCR A ONLY Jul 01, 2013 [id number] Tracey BLISS PATIENT [facility]* Jan 01, 2011 [id number] Tracey BLISS PATIENT Selected Encounter This section includes the information on record at [place] for the Encounter. Date/Time Encounter Type Encounter Description Reason Pro vider Source Apr 03, 2024 09:18 AM Outpatient Encounter [facility] Encounter Template Text not used by [place] Plan of Treatment: Future Appointments (+ 6 months) and Future Tests (+/- 45 days) The Plan of Treatment section includes future care activities for the patient from all [place] treatmentfacilities. This section includes future appointments and future orders which are active, pending or scheduled. Future Appointments This section includes appointments that were scheduled to occur 6 months from the date of the Encounter, up to a maximum of 20 appointments. The data comes from all [place] treatment facilities. Appointment Date/Time Appointment Type Appointme nt Facility Name Apr 17, 2024 01:00 PM AMBULATORY - MEDICINE [place] [facility] [facility] May 16, 2024 10:00 AM AMBULATORY - PSYCHIATRY [place] [facility] [place] [facility] May 16, 2024 11:30 AM AMBULATORY - MEDICINE [place] C [facility] [place] [facility] May 23, 2024 11:30 AM AMBULATORY - PSYCHIATRY [place] [facility] [place] [facility] May 24, 2024 10:30 AM AMBULATORY - MEDICINE [place] [facility] [place] [facility] May 30, 2024 10:00 AM AMBULATORY - PSYCHIATRY [place] [facility] [place] [facility] Jun 13, 2024 10:00 AM AMBULATORY - PSYCHIATRY [place] [facility] [place] [facility] Jun 27, 2024 10:00 AM AMBULATORY - PSYCHIATRY [place] [facility] [place] [facility] Social History: Smoking Status (Most current) and Tobacco Use (All prior to encounter date) This section includes the most current, and the historical, smoking and tobacco- related health factors from the [place] facility where the Encounter took place. Current Smoking Status This section includes the most current smoking, or tobacco-related health factor, from the [place] facility where the Encounter took place. Date/Time Current Smoking Status Comment Nora ity Aug 04, 2023 09:00 AM VA-TOBACCO QUIT 15 YRS OR MORE [place] [facility] [place] [facility] Tobacco Use History This section includes a history of the smoking, or tobacco-related health factors, that were collected on or before the date of the Encounter. The data comes from the [place] facility where the Encounter took place. Date/Time Smoking Status/Tobacco Use Comment F acility Aug 04, 2023 09:00 AM VA-TOBACCO QUIT 15 YRS OR MORE [place] [facility] [place] [facility] Aug 05, 2022 11:30 AM VA-TOBACCO NEVER USED VA [facility] [place] [facility] Aug 22, 2021 11:30 AM VA-TOBACCO NEVER USED VA [facility] [place] [facility] Apr 29, 2020 10:30 AM VA-TOBACCO NEVER USED [place] [facility] [place] [facility] September 21, 2018 09:39 AM VA-TOBACCO FORMER USER [place] [facility] [place] [facility] September 21, 2018 09:39 AM VA-TOBACCO QUIT 15 YRS OR [facility] Dec 31, 2017 02:50 PM QUIT TOBACCO USE > 7 YEARS AGO [facility] Dec 31, 2016 09:33 AM QUIT TOBACCO USE > 7 YEARS AGO [facility] Dec 31, 2016 09:31 AM QUIT TOBACCO USE 1 -7 YEARS AGO [facility] Jan 08, 2016 01:57 PM QUIT TOBACCO USE > 7 YEARS AGO [facility] Nov 15, 2014 10:48 AM QUIT TOBACCO USE > 7 YEARS AGO quit 1975 [facility] Advance Directives: All historical and current Section Date Range: From patient's date of to the date document was created. This section includes ALL of a patient's completed or amended [place] Advance and Rescinded Directives. The entries below indicate that a directive exists for the patient, but an actual copy is not included with this document. The data comes from all [place] facilities. Date Advance Directives Provider Source Jan 01, 2005 ADVANCE DIRECTIVE KLAUS PAZ [facility] Encounter Notes: All associated encounter notes This section contains the clinical notes associated to the Encounter. 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 Would like to reschedule appointment [phone]. /darcy/ GRANT LOMBARDO SALES REPRESENTATIVE DOOR TO DOOR Signed: 04/03/2024 09:20 Receipt Acknowledged By: 04/03/2024 15:02 /darcy/ SHANITA CORMIER SURFACE ROOM SHOP OPTICIAN GRANT LOMBARDO [facility]
--- OUTSIDE RECORDS SUMMARY | 2024-04-21 08:56 | XMS_ITS | Encounter Summary ---
Author Name Department [place] Organization [place] Address [address] [place] [address] Care Team Providers Care Desk Attendant Name Role Phone LINDA PALOMINO Primary [...] PRESCRIPT ION [facility] May 03, 2018 [id number] [phone] Tracey BLISS PATIENT [facility] Jul 01, 2013 [id number] [facility] CIGNA/NALC PREFERRED PROVIDER ORGANIZAT ION (PPO) [facility] Jul 01, 2013 32 [id number] [facility] CIGNA/NALC PREFERRED PROVIDER ORGANIZAT ION (PPO) [facility] Jan 01, 2011 [id number] Tracey BLISS PATIENT CIGNA/NALC PREFERRED PROVIDER ORGANIZAT ION (PPO) [facility] HEALT H BENEF Jan 01, 2011 [id number] Tracey BLISS PATIENT MEDICARE (WNR) MEDICARE (M) PART B Jul 01, 2013 PART B [id number] Tracey BLISS PATIENT MEDICARE (WNR) MEDICARE (M) PART A Jul 01, 2013 PART A [id number] Tracey BLISS PATIENT MEDICARE (WNR) MEDICARE (M) PART A Jul 01, 2013 PART A [id number] Tracey BLISS PATIENT [facility] PREFERRED PROVIDER ORGANIZAT ION (PPO) [facility] May 03, 2018 32 [id number] Tracey BLISS PATIENT [facility] (MED PRIME) PREFERRED PROVIDER ORGANIZAT ION (PPO) [facility] Jul 01, 2013 [id number] Tracey BLISS PATIENT [facility] (MED PRIME) PREFERRED PROVIDER ORGANIZAT ION (PPO) [facility] Jul 01, 2013 32 [id number] Tracey BLISS PATIENT [facility] -MCR A ONLY Jul 01, 2013 [id number] Tracey BLISS PATIENT [facility]* Jan 01, 2011 [id number] Tracey BLISS PATIENT Selected Encounter This section includes the information on record at [place] for the Encounter. Date/Time Encounter Type Encounter Description Reason Pro vider Source Apr 17, 2024 03:43 PM Outpatient Encounter [facility] Encounter Template Text not used by [facility] Plan of Treatment: Future Appointments (+ 6 months) and Future Tests (+/- 45 days) The Plan of Treatment section includes future care activities for the patient from all [place] treatmentfacilities. This section includes future appointments and [...] AMBULATORY - PSYCHIATRY [facility] [place] [facility] May 16, 2024 11:30 AM AMBULATORY - MEDICINE [facility] [place] [facility] May 23, 2024 11:30 AM AMBULATORY - PSYCHIATRY [facility] [place] [facility] May 24, 2024 10:30 AM AMBULATORY - MEDICINE [facility] [facility] May 30, 2024 10:00 AM AMBULATORY - PSYCHIATRY [facility] [place] [facility] Jun 13, 2024 10:00 AM AMBULATORY - PSYCHIATRY [facility] [place] [facility] Jun 27, 2024 10:00 AM AMBULATORY - PSYCHIATRY [facility] [place] [facility] Social History: Smoking Status (Most current) [...] YRS OR MORE [place] [facility] [place] [facility] Tobacco Use History This section includes a history of the smoking, or tobacco-related health factors, that were collected on or before the date of the Encounter. The data comes from the [place] facility where the Encounter took place. Date/Time Smoking Status/Tobacco Use Comment F acility Aug 04, 2023 09:00 AM VA-TOBACCO QUIT 15 YRS OR MORE [facility] [place] [facility] Aug 05, 2022 11:30 AM VA-TOBACCO NEVER USED VA [facility] [place] [facility] Aug 22, 2021 11:30 AM VA-TOBACCO NEVER USED VA [facility] [place] [facility] Apr 29, 2020 10:30 AM VA-TOBACCO NEVER USED VA [facility] [place] [facility] September 21, 2018 09:39 AM VA-TOBACCO FORMER USER VA [facility] [place] [facility] September 21, 2018 09:39 AM VA-TOBACCO QUIT 15 YRS OR MORE [facility] [place] [facility] Dec 31, 2017 02:50 PM QUIT TOBACCO USE > 7 YEARS AGO DC [facility] [place] [facility] Dec 31, 2016 09:33 AM QUIT TOBACCO USE > 7 YEARS AGO DC [facility] [facility] Dec 31, 2016 09:31 AM QUIT TOBACCO USE 1 -7 YEARS AGO [place] [facility] [place] [facility] Jan 08, 2016 01:57 PM QUIT TOBACCO USE > 7 YEARS AGO [place] [facility] [place] [facility] Nov 15, 2014 10:48 AM QUIT TOBACCO USE > 7 YEARS AGO quit 1975 [facility] Advance Directives: All historical and current [...] Jan 01, 2005 ADVANCE DIRECTIVE [facility]US PAZ [facility] Encounter Notes: All associated encounter notes This section contains the clinical notes associated to the Encounter. Date/Time Encounter Note(s) Provider Source Apr 17, 2024 03:43 PM ADMINISTRATIVE NOT E: LOCAL TITLE: ADMINISTRATIVE NOTE STANDARD TITLE: ADMINISTRATIVE NOTE DATE OF NOTE: APR 17, 2024@15:43 ENTRY DATE: APR 17, 2024@15:43:55 AUTHOR: INGRIS HART EXP COSIGNER: URGENCY: STATUS: [facility] 03/28/2024 dispositioned -schedule assigned- Dispositioned on 04/17/2024 /darcy/ INGRIS HART ADVANCED CAN SORTER Signed: 04/17/2024 15:44 INGRIS HART [facility]
--- OUTSIDE RECORDS SUMMARY | 2024-04-21 08:56 | XMS_ITS | Encounter Summary ---
Author Name Department [place] Organization [place] Address [address] [place] [address] Care Team Providers Care Tree Trimming Supervisor Name Role Phone LINDA PALOMINO Primary [...] PRESCRIPT ION [facility] May 03, 2018 [id number] Tracey BLISS PATIENT [facility] Jul 01, 2013 [id number] Tracey BLISS PATIENT CIGNA/NALC PREFERRED PROVIDER ORGANIZAT ION (PPO) [facility] Jul 01, 2013 32 [id number] Tracey BLISS PATIENT CIGNA/NALC PREFERRED PROVIDER ORGANIZAT ION (PPO) [facility] Jan 01, 2011 321 [id number] Tracey BLISS PATIENT CIGNA/NALC PREFERRED PROVIDER ORGANIZAT ION (PPO) [facility] HEALT H BENEF Jan 01, 2011 [id number] [phone] Tracey BLISS PATIENT MEDICARE (WNR) MEDICARE (M) PART B Jul 01, 2013 PART B [id number] Tracey BLISS PATIENT MEDICARE (WNR) MEDICARE (M) PART A Jul 01, 2013 PART A [id number] Tracey BLISS PATIENT MEDICARE (WNR) MEDICARE (M) PART A Jul 01, 2013 PART A [id number] Tracey BLISS PATIENT [facility] PREFERRED PROVIDER ORGANIZAT ION (PPO) [facility] May 03, 2018 32 [id number] [phone] Tracey BLISS PATIENT [facility] (MED PRIME) PREFERRED PROVIDER ORGANIZAT ION (PPO) [facility] Jul 01, 2013 [id number] Tracey BLISSH PATIENT [facility] (MED PRIME) PREFERRED PROVIDER ORGANIZAT ION (PPO) [facility] Jul 01, 2013 32 [id number] Tracey BLISSH PATIENT [facility] -MCR A ONLY Jul 01, 2013 [id number] Tracey BLISS PATIENT [facility]* Jan 01, 2011 [id number] Tracey BLISS PATIENT Selected Encounter This section includes the information on record at [place] for the Encounter. Date/Time Encounter Type Encounter Description Reason Provider Source Feb 01, 2024 10:00 AM PSYTX W PT 45 MINUTES [facility] - IND ICD-10-CM K51.90 Ulcerative colitis, unspecified, without complications ROSENDO CRUZ [facility] Encounter Template Text not used by [place] Assessments - Encounter Diagnoses This section includes the primary and secondary diagnoses documented for the Encounter. Date/Time Primary/Secondary Diagnosis Diagnosis Name Provider Source Feb 21, 2024 10:04 AM PRIMARY Ulcerative colitis, unspecified, without complications ROSENDO CRUZ [place] [facility] Plan of Treatment: Future Appointments (+ 6 months) and Future Tests (+/- 45 days) The Plan of Treatment section includes future care activities for the patient [facility] [place] [facility] This section includes future appointments and future orders which are active, pending or scheduled. Future Appointments This section includes appointments that were scheduled to occur 6 months from the date of the Encounter, up to a maximum of 20 appointments. The data comes from all [place] treatment facilities. Appointment Date/Time Appointment Type Appointme nt Facility Name Feb 09, 2024 10:00 AM AMBULATORY - MEDICINE [facility] [place] [facility] Feb 11, 2024 10:45 AM AMBULATORY - NONE [facility] [place] [facility] Feb 16, 2024 11:30 AM AMBULATORY - NONE [facility] [place] [facility] Feb 22, 2024 01:45 PM AMBULATORY - MEDICINE [facility] [place] [facility] Mar 24, 2024 11:00 AM AMBULATORY - NONE [facility] [place] [facility] Apr 17, 2024 01:00 PM AMBULATORY - MEDICINE [facility] [place] [facility] May 16, 2024 10:00 AM AMBULATORY - PSYCHIATRY [facility] [place] [facility] May 16, 2024 11:30 AM AMBULATORY - MEDICINE [facility] [place] [facility] May 23, 2024 11:30 AM AMBULATORY - PSYCHIATRY [facility] [place] [facility] May 24, 2024 10:30 AM AMBULATORY - MEDICINE [place] C [facility] [place] [facility] May 30, 2024 10:00 AM AMBULATORY - PSYCHIATRY [facility] [place] [facility] Jun 13, 2024 10:00 AM AMBULATORY - PSYCHIATRY [facility] [place] [facility] Jun 27, 2024 10:00 AM AMBULATORY - PSYCHIATRY [place] [facility] [facility] Social History: Smoking Status (Most current) [...] QUIT 15 YRS OR MORE [facility] Tobacco Use History This section includes a history of the smoking, or tobacco-related health factors, that were collected on or before the date of the Encounter. The data comes from the [place] facility where the Encounter took place. Date/Time Smoking Status/Tobacco Use Comment F acility Aug 04, 2023 09:00 AM VA-TOBACCO QUIT 15 YRS OR MORE [place] [facility] [facility] Aug 05, 2022 11:30 AM VA-TOBACCO NEVER USED [place] [facility] [place] [facility] Aug 22, 2021 11:30 AM VA-TOBACCO NEVER USED MA [facility] [place] [facility] Apr 29, 2020 10:30 AM VA-TOBACCO NEVER USED [place] [facility] [place] [facility] September 21, 2018 09:39 AM VA-TOBACCO FORMER USER [place] [facility] [facility] September 21, 2018 09:39 AM VA-TOBACCO QUIT 15 YRS OR MORE [place] [facility] [place] [facility] Dec 31, 2017 02:50 PM QUIT TOBACCO USE > 7 YEARS AGO [place] [facility] [facility] Dec 31, 2016 09:33 AM QUIT TOBACCO USE > 7 YEARS AGO [place] [facility] [place] [facility] Dec 31, 2016 09:31 AM QUIT TOBACCO USE 1 -7 YEARS AGO [place] [facility] [place] [facility] Jan 08, 2016 01:57 PM QUIT TOBACCO USE > 7 YEARS AGO [place] [facility] [place] [facility] Nov 15, 2014 10:48 AM QUIT TOBACCO USE > 7 YEARS AGO quit 1975 [place] [facility] Advance Directives: All historical and current Section Date Range: From patient's date of to the date document was created. This section includes ALL of a patient's completed or amended [place] Advance and Rescinded Directives. The entries below indicate that a directive exists for the patient, but an actual copy is not included with this document. The data comes from all [place] facilities. Date Advance Directives Provider Source Jan 01, 2005 ADVANCE DIRECTIVE KLAUS PAZ [place] [facility] Encounter Notes: All associated encounter notes [...] court of law and presented to a dressage judge), and DOD access for active duty [...] at her. 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 I guess what would be helpful is to see you until there is another (training executive run) Vietnam era Veterans group like Terri Durbin had. That was good for me to [...] looking for an appropriate group setting for Vale. /darcy/ ROSENDO CRUZ PSYD PSYCHOLOGIST Signed: 02/01/2024 11:07 ROSENDO CRUZ [place] [facility]
--- OUTSIDE RECORDS SUMMARY | 2024-04-21 08:56 | XMS_ITS ---
Author Name [place] Address [address] [place] [address] Care Team Providers Care Dock Loader Name Role Phone LINDA PALOMINO Primary Care [...] Relationship to Policy Banegas [facility] PRESCRIPT ION [facility] May 03, 2018 [id number] Tracey BLISS PATIENT [facility] MENTAL HEALTH [facility] Jul 01, 2013 322 [id number] Tracey BLISS PATIENT CIGNA/NALC PREFERRED PROVIDER ORGANIZAT ION (PPO) [facility] Jul 01, 2013 32 [id number] Tracey BLISS PATIENT CIGNA/NALC PREFERRED PROVIDER ORGANIZAT ION (PPO) [facility] Jan 01, 2011 321 [id number] Tracey BLISS PATIENT CIGNA/NALC PREFERRED PROVIDER ORGANIZAT ION (PPO) [facility] HEALT H BENEF Jan 01, 2011 [id number] Tracey BLISS PATIENT MEDICARE (WNR) MEDICARE (M) PART B Jul 01, 2013 PART B [id number] Tracey BLISS PATIENT MEDICARE (WNR) MEDICARE (M) PART A Jul 01, 2013 PART A [id number] [phone] Tracey BLISS PATIENT MEDICARE (WNR) MEDICARE (M) PART A Jul 01, 2013 PART A [id number] Tracey BLISS PATIENT [facility] PREFERRED PROVIDER ORGANIZAT ION (PPO) [facility] May 03, 2018 32 [id number] Tracey BLISS PATIENT [facility] (MED PRIME) PREFERRED PROVIDER ORGANIZAT ION (PPO) [facility] Jul 01, 2013 322 [id number] Tracey BLISS PATIENT [facility] (MED PRIME) PREFERRED PROVIDER ORGANIZAT ION (PPO) [facility] Jul 01, 2013 32 [id number] Tracey BLISS PATIENT [facility] -MCR A ONLY Jul 01, 2013 [id number] Tracey BLISS PATIENT [facility]* Jan 01, 2011 [id number] Tracey BLISS PATIENT Selected Encounter This section includes the information on record at [place] for the Encounter. Date/Time Encounter Type Encounter Description Reason Pro vider Source Feb 01, 2024 12:09 PM Outpatient Encounter [facility] Encounter Template Text not used by [place] Plan of Treatment: Future Appointments (+ 6 months) and Future Tests (+/- 45 days) The Plan of Treatment section includes future care activities for the patient from all [place] treatmentfacilities. This section includes future appointments and [...] [facility] [place] [facility] May 16, 2024 10:00 AM AMBULATORY [...] [facility] [place] [facility] Jun 13, 2024 10:00 AM AMBULATORY - PSYCHIATRY [place] [facility] [place] [facility] Jun 27, 2024 10:00 AM AMBULATORY - PSYCHIATRY [place] [facility] [place] [facility] Social [...] AM VA-TOBACCO QUIT 15 YRS OR MORE [facility] Tobacco Use History This section includes a history of the smoking, or tobacco-related health factors, that were collected on or before the date of the Encounter. The data comes from the [place] facility where the Encounter took place. Date/Time Smoking Status/Tobacco Use Comment F acility Aug 04, 2023 09:00 AM VA-TOBACCO QUIT 15 YRS OR MORE [place] [facility] [place] [facility] Aug 05, 2022 11:30 AM VA-TOBACCO NEVER USED [place] [facility] [place] [facility] Aug 22, 2021 11:30 AM VA-TOBACCO NEVER USED [place] [facility] [place] [facility] Apr 29, 2020 10:30 AM VA-TOBACCO NEVER USED [place] [facility] [place] [facility] September 21, 2018 09:39 AM VA-TOBACCO FORMER USER [place] [facility] [place] [facility] September 21, 2018 09:39 AM VA-TOBACCO QUIT 15 YRS OR MORE [place] [facility] [place] [facility] Dec 31, 2017 02:50 PM QUIT TOBACCO USE > 7 YEARS AGO [facility] [place] [facility] Dec 31, 2016 09:33 AM QUIT TOBACCO USE > 7 YEARS AGO [place] [facility] [place] [facility] Dec 31, 2016 09:31 AM QUIT TOBACCO USE 1 -7 YEARS AGO [place] [facility] [place] [facility] Jan 08, 2016 01:57 PM QUIT TOBACCO USE > 7 YEARS AGO [place] [facility] [place] [facility] Nov 15, 2014 10:48 AM QUIT TOBACCO USE > 7 YEARS AGO quit 1975 [facility] Advance Directives: All historical and current Section Date Range: From patient's date of to the date document was created. This section includes ALL of a patient's completed or amended [place] Advance and Rescinded Directives. The entries below indicate that a directive exists for the patient, but an actual copy is not included with this document. The data comes from all [place] facilities. Date Advance Directives Provider Source Jan 01, 2005 ADVANCE DIRECTIVE KLAUS PAZ ES [place] [facility] Encounter Notes: All associated encounter notes This section contains the clinical notes associated to the Encounter. Date/Time Encounter Note(s) Provider Source Feb 01, 2024 12:09 PM ADMINISTRATIVE NOT E: LOCAL TITLE: ADMINISTRATIVE NOTE STANDARD TITLE: ADMINISTRATIVE NOTE DATE OF NOTE: FEB 01, 2024@12:09 ENTRY DATE: FEB 01, 2024@12:09:44 AUTHOR: GRANT LOMBARDO COSIGNER: URGENCY: STATUS: COMPLETED Aoc Plans Intelligence Officer received a voicemail from , state he needs to reschedule his 04/11/2024 appointment due to have another appointment that day he needs to keep. States that any number on his file can be called back to reschedule. /darcy/ GRANT LOMBARDO COCKTAIL SERVER Signed: 02/01/2024 12:11 Receipt Acknowledged By: 02/01/2024 12:17 /darcy/ ROSENDO CRUZ PSYD PSYCHOLOGIST GRANT LOMBARDO [facility]
--- OUTSIDE RECORDS SUMMARY | 2024-04-21 08:56 | XMS_ITS | Encounter Summary ---
Author Name [place] Address [address] [place] [address] Care Team Providers Care Doctor Of Osteopathy Name Role Phone LINDA PALOMINO Primary Care [...] Relationship to Policy Banegas [facility] PRESCRIPT ION [facility] May 03, 2018 [id number] Tracey BLISS PATIENT [facility] MENTAL HEALTH [facility] Jul 01, 2013 [id number] Tracey BLISSCOX BRANSON PATIENT CIGNA/NALC PREFERRED PROVIDER ORGANIZAT ION (PPO) [facility] Jul 01, 2013 32 [id number] [id number] Tracey BLISSCOX BRANSON PATIENT CIGNA/NALC PREFERRED PROVIDER ORGANIZAT ION (PPO) [facility] Jan 01, 2011 [id number] Tracey BLISS PATIENT CIGNA/NALC PREFERRED PROVIDER ORGANIZAT ION (PPO) [facility] HEALT H BENEF Jan 01, 2011 [id number] Tracey BLISS PATIENT MEDICARE (WNR) MEDICARE (M) PART B Jul 01, 2013 PART B [id number] [id number] Tracey BLISS PATIENT MEDICARE (WNR) MEDICARE (M) PART A Jul 01, 2013 PART A [id number] [phone] [id number] Tracey BLISS PATIENT MEDICARE (WNR) MEDICARE (M) PART A Jul 01, 2013 PART A [id number] Tracey BLISS PATIENT [facility] PREFERRED PROVIDER ORGANIZAT ION (PPO) [facility] May 03, 2018 32 [id number] Tracey BLISS PATIENT [facility] (MED PRIME) PREFERRED PROVIDER ORGANIZAT ION (PPO) [facility] FAM[facility] Jul 01, 2013 [id number] Tracey BLISS PATIENT [facility] (MED PRIME) PREFERRED PROVIDER ORGANIZAT ION (PPO) [facility] Jul 01, 2013 32 [id number] Tracey BLISS PATIENT [facility] -MCR A ONLY Jul 01, 2013 [id number] 30 Trcaey BLISS PATIENT [facility]* Jan 01, 2011 [id number] Tracey BLISS PATIENT Selected Encounter This [...] activities for the patient from all [place] treatmentfacilities. This section includes future appointments and [...] AMBULATORY - NONE [place] [facility] [place] [place] [facility] Feb 16, 2024 11:30 AM AMBULATORY - NONE [place] [facility] [place] [facility] Feb 22, 2024 01:45 PM AMBULATORY - MEDICINE [facility] [place] [facility] Mar 24, 2024 11:00 AM AMBULATORY - NONE [facility] [place] [facility] Apr 17, 2024 01:00 PM AMBULATORY - MEDICINE [facility] [place] [facility] May 16, 2024 10:00 AM AMBULATORY - PSYCHIATRY [facility] [place] [facility] May 16, 2024 11:30 AM AMBULATORY - MEDICINE [facility] [place] [facility] May 23, 2024 11:30 AM AMBULATORY - PSYCHIATRY [facility] [facility] May 24, 2024 10:30 AM AMBULATORY - MEDICINE [facility] [place] [facility] May 30, 2024 10:00 AM AMBULATORY - PSYCHIATRY [facility] [place] [facility] Jun 13, 2024 10:00 AM AMBULATORY - PSYCHIATRY [facility] [place] [facility] Jun 27, 2024 10:00 AM AMBULATORY - PSYCHIATRY [place] [facility] [place] [facility] Social History: Smoking Status (Most current) [...] VA-TOBACCO QUIT 15 YRS OR [facility] Tobacco Use History This section includes a history of the smoking, or tobacco-related health factors, that were collected on or before the date of the Encounter. The data comes from the [place] facility where the Encounter took place. Date/Time Smoking Status/Tobacco Use Comment F acility Aug 04, 2023 09:00 AM [place]-TOBACCO QUIT 15 YRS OR MORE [place] [facility] [place] [facility] Aug 05, 2022 11:30 AM VA-TOBACCO NEVER USED [place] [facility] [place] [facility] Aug 22, 2021 11:30 AM VA-TOBACCO NEVER USED [place] [facility] [place] [facility] Apr 29, 2020 10:30 AM VA-TOBACCO NEVER USED [place] [facility] [place] [facility] September 21, 2018 09:39 AM VA-TOBACCO FORMER USER [facility] [facility] September 21, 2018 09:39 AM VA-TOBACCO QUIT 15 YRS OR MORE [facility] [place] [facility] Dec 31, 2017 02:50 PM QUIT TOBACCO USE > 7 YEARS AGO [facility] [place] [facility] Dec 31, 2016 09:33 AM QUIT TOBACCO USE > 7 YEARS AGO [facility] [place] [facility] Dec 31, 2016 09:31 AM QUIT TOBACCO USE 1 -7 YEARS AGO [facility] [place] [place] [facility] Jan 08, 2016 01:57 PM QUIT TOBACCO USE > 7 YEARS AGO [facility] [place] [facility] Nov 15, 2014 10:48 AM QUIT TOBACCO USE > 7 YEARS AGO quit 1975 [place] [facility] [place] [facility] Advance Directives: All historical and current [...] Jan 01, 2005 ADVANCE DIRECTIVE KLAUS PAZ [facility] [place] [facility] Encounter Notes: All associated encounter notes [...] 10:45 am /darcy/ LUIS FERNANDO MACEDO ADVANCED BED MAKER Signed: 02/10/2024 08:33 LUIS FERNANDO MACEDO [facility]
--- OUTSIDE RECORDS SUMMARY | 2024-04-21 08:56 | XMS_ITS | Encounter Summary ---
Author Name [facility] [place] Address [address] [place] [address] Care Team Providers Care Netezza Architect Name Role Phone LINDA PALOMINO Primary Care [...] PRESCRIPT ION [facility] May 03, 2018 [id number] [phone] Tracey BLISS PATIENT [facility] Jul 01, 2013 [id number] Tracey BLISS PATIENT CIGNA/NALC PREFERRED PROVIDER ORGANIZAT ION (PPO) [facility] Jul 01, 2013 32 [id number] Tracey BLISS PATIENT [employer] PREFERRED PROVIDER ORGANIZAT ION (PPO) [facility] Jan 01, 2011 [id number] Tracey BLISS PATIENT [employer]IG[employer]/NALC PREFERRED PROVIDER ORGANIZAT ION (PPO) [facility] HEALT H BENEF Jan 01, 2011 [id number] Tracey BLISS PATIENT MEDICARE (WNR) MEDICARE (M) PART B Jul 01, 2013 PART B [id number] [phone] Tracey BLISS PATIENT MEDICARE (WNR) MEDICARE (M) PART A Jul 01, 2013 PART A [id number] Tracey BLISS PATIENT MEDICARE (WNR) MEDICARE (M) PART A Jul 01, 2013 PART A [id number] Tracey BLISS PATIENT [facility] PREFERRED PROVIDER ORGANIZAT ION (PPO) [facility] May 03, 2018 32 [id number] Tracey BLISS PATIENT [facility] (MED PRIME) PREFERRED PROVIDER ORGANIZAT ION (PPO) [facility] FAM[facility] Jul 01, 2013 322 [id number] Tracey BLISSH PATIENT [facility] (MED PRIME) PREFERRED PROVIDER ORGANIZAT ION (PPO) [facility] Jul 01, 2013 32 [id number] Tracey BLISS PATIENT [facility] -MCR A ONLY Jul 01, 2013 [id number] Tracey BLISS PATIENT [facility]* Jan 01, 2011 [id number] Tracey BLISS PATIENT Selected Encounter This section includes the information on record at [place] for the Encounter. Date/Time Encounter Type Encounter Description Reason Provider Source Apr 17, 2024 01:00 PM COMPRE OPH EXAM EST PT 1/> OPTOMETRY ICD-10-CM H40.013 Open angle with borderline findings, low risk, bilateral MENDY REDDING Morgan Encounter Template Text not used by [place] Assessments - Encounter Diagnoses This section includes the primary and secondary diagnoses documented for the Encounter. Date/Time Primary/Secondary Diagnosis Diagnosis Name Provider Source Apr 17, 2024 02:17 PM PRIMARY Open angle with borderline findings, low risk, bilateral MENDY REDDING [facility] [place] [facility] Apr 17, 2024 02:17 PM SECONDARY Combined forms of age-related cataract, bilateral MENDY REDDING [facility] Apr 17, 2024 02:17 PM SECONDARY Unspecified disorder of refraction [facility]END[facility] REDDING [facility] Plan of Treatment: Future Appointments (+ 6 months) and Future Tests (+/- 45 days) The Plan of Treatment section includes future care activities for the patient from all [place] [facility]. This section includes future appointments and future orders which are active, pending or scheduled. Future Appointments This section includes appointments that were scheduled to occur 6 months from the date of the Encounter, up to a maximum of 20 appointments. The data comes from all [place] treatment facilities. Appointment Date/Time Appointment Type Appointme nt Facility Name May 16, 2024 10:00 AM [facility] May 16, 2024 11:30 AM AMBULATORY - MEDICINE [facility] May 23, 2024 11:30 AM [facility] [place] [facility] May 24, 2024 10:30 AM AMBULATORY - MEDICINE [facility]L [place] [facility] May 30, 2024 10:00 AM [facility] [place] [facility] Jun 13, 2024 10:00 AM [facility] [place] [facility] Jun 27, 2024 10:00 AM AMBULATORY - [facility] Social History: Smoking Status (Most current) and Tobacco Use (All prior to encounter date) This section includes the most current, and the historical, smoking and tobacco- related health factors from the [place] facility where the Encounter took place. Current Smoking Status This section includes the most current smoking, or tobacco-related health factor, from the [place] facility where the Encounter took place. Date/Time Current Smoking Status Comment Facil ity Aug 04, 2023 09:00 AM VA-TOBACCO QUIT 15 YRS OR MORE [facility] Tobacco Use History This section includes a history of the smoking, or tobacco-related health factors, that were collected on or before the date of the Encounter. The data comes from the [place] facility where the Encounter took place. Date/Time Smoking Status/Tobacco Use Comment F acility Aug 04, 2023 09:00 AM VA-TOBACCO QUIT 15 YRS OR MORE [place] [facility] [place] [facility] Aug 05, 2022 11:30 AM VA-TOBACCO NEVER USED [place] [facility] [place] [facility] Aug 22, 2021 11:30 AM VA-TOBACCO NEVER USED [facility] [place] [facility] Apr 29, 2020 10:30 AM VA-TOBACCO NEVER USED [place] [facility] [place] [facility] September 21, 2018 09:39 AM VA-TOBACCO FORMER USER [facility] [place] [facility] September 21, 2018 09:39 AM VA-TOBACCO QUIT 15 YRS OR MORE [facility] [place] [facility] Dec 31, 2017 02:50 PM QUIT TOBACCO USE > 7 YEARS AGO [facility] [place] [facility] Dec 31, 2016 09:33 AM QUIT TOBACCO USE > 7 YEARS AGO [facility] [place] [facility] Dec 31, 2016 09:31 AM QUIT TOBACCO USE 1 -7 YEARS AGO [facility] [place] [facility] Jan 08, 2016 01:57 PM QUIT TOBACCO USE > 7 YEARS AGO [facility] [place] [facility] Nov 15, 2014 10:48 AM QUIT TOBACCO USE > 7 YEARS AGO quit 1975 [facility] Advance Directives: All historical and [...] Jan 01, 2005 ADVANCE DIRECTIVE KLAUS PAZ [facility] Encounter Notes: All associated [...] glaucoma imaging. /darcy/ MENDY REDDING OD STAFF APPETIZER PACKER Signed: 04/17/2024 14:17 MENDY REDDING [facility] Apr 17, 2024 07:37 AM OPTOMETRY NOTE: LOCAL TITLE: OPTOMETRY NOTE STANDARD TITLE: OPTOMETRY NOTE DATE OF NOTE: APR 17, 2024@07:37 ENTRY DATE: APR 17, 2024@07:37:45 AUTHOR: PASTORA REBOLLEDO EXP COSIGNER: MENDY REDDING URGENCY: STATUS: COMPLETED Active problems - Computerized Problem List is the source for the followin. Lipoma of skin and subcutaneous tissue (excluding face) 2. Exposure to potentially hazardous substance ([facility] [id number]) 3. Holland's palsy 4. Allergic Rhinitis ([facility] [id number]) 5. Basal cell carcinoma of skin 6. Hyperlipidemia ([facility] [id number]) 7. Anxiety 8. Hemorrhoid 9. Under care [...] is seen today for annual CEE LILIAN: 12/06/23 Chief Complaint: Blurry vision comes in goes [...] Monitor Return to Clinic or earlier PRN Education: After discussion and answering all 's questions, [place] demonstrated and verbalized understanding of diagnosis and [...] this [facility] (local) and dispensed from another [place] or DoD facility (remote) as well as [...] 04/18/2024 08:31 /darcy/ MENDY REDDING OD STAFF APPETIZER PACKER Cosigned: 04/19/2024 08:18 PASTORA REBOLLEDO [facility]
--- OUTSIDE RECORDS SUMMARY | 2024-04-21 08:56 | XMS_ITS | Encounter Summary ---
Author Name Department [place] Address [address] [place] [address] Care Team Providers Care Supervisor Title Name Role Phone LINDA PALOMINO Primary Care [...] ION [facility] May 03, 2018 [id number] Tracey BLISS PATIENT [facility] Jul 01, 2013 [id number] [facility] [employer]/NALC PREFERRED PROVIDER ORGANIZAT ION (PPO) [facility] Jul 01, 2013 32 [id number] [facility] PREFERRED PROVIDER ORGANIZAT ION (PPO) [facility] Jan 01, 2011 [id number] [phone] Tracey BLISS PATIENT [employer]IG[employer]NALC PREFERRED PROVIDER ORGANIZAT ION (PPO) [facility] HEALT H BENEF Jan 01, 2011 [id number] [phone] Tracey BLISS PATIENT MEDICARE (WNR) MEDICARE (M) PART B Jul 01, 2013 PART B [id number] [phone] Tracey BLISS PATIENT MEDICARE (WNR) MEDICARE (M) PART A Jul 01, 2013 PART A [id number] Tracey BLISS PATIENT MEDICARE (WNR) MEDICARE (M) PART A Jul 01, 2013 PART A [id number] [phone] Tracey BLISS PATIENT [facility] PREFERRED PROVIDER ORGANIZAT ION (PPO) [facility] May 03, 2018 32 [id number] [phone] Tracey BLISS PATIENT [facility] (MED PRIME) PREFERRED PROVIDER ORGANIZAT ION (PPO) [facility] FAMIL Y Jul 01, 2013 322 [id number] Tracey BLISS PATIENT [facility] (MED PRIME) PREFERRED PROVIDER ORGANIZAT ION (PPO) [facility] Jul 01, 2013 32 [id number] Tracey BLISS PATIENT [facility] -MCR A ONLY Jul 01, 2013 [id number] Tracey BLISS PATIENT [facility]* Jan 01, 2011 [id number] Tracey BLISS PATIENT Selected Encounter This section includes the information on record at [place] for the Encounter. Date/Time Encounter Type Encounter Description Reason Pro vider Source Mar 23, 2024 08:46 AM Outpatient Encounter DENTAL IHE Encounter Template Text not used by [place] Plan of Treatment: Future Appointments (+ 6 months) and Future Tests (+/- 45 days) The Plan of Treatment section includes future care activities for the patient from all [place] treatmentfacilities. This section includes future appointments and future orders which are active, pending or scheduled. Future Appointments This section includes appointments that were scheduled to occur 6 months from the date of the Encounter, up to a maximum of 20 appointments. The data comes from all [place] treatment facilities. Appointment Date/Time Appointment Type Appointme nt Facility Name Mar 24, 2024 11:00 AM AMBULATORY - NONE [facility] [place] [facility] Apr 17, 2024 01:00 PM AMBULATORY - MEDICINE [facility] [place] [facility] May 16, 2024 10:00 AM AMBULATORY - PSYCHIATRY [facility] [place] [facility] May 16, 2024 11:30 AM AMBULATORY - MEDICINE [facility] [place] [facility] May 23, 2024 11:30 AM AMBULATORY - PSYCHIATRY [facility] [place] [facility] May 24, 2024 10:30 AM AMBULATORY - MEDICINE [facility] [place] [facility] May 30, 2024 10:00 AM AMBULATORY - PSYCHIATRY [facility] [place] [facility] Jun 13, 2024 10:00 AM AMBULATORY - PSYCHIATRY [facility] [place] [facility] Jun 27, 2024 10:00 AM AMBULATORY - PSYCHIATRY [place] [facility] [place] [facility] Social History: Smoking Status (Most current) and Tobacco Use (All prior to encounter date) This section includes the most current, and the historical, smoking and tobacco- related health factors from the [place] facility where the Encounter took place. Current Smoking Status This section includes the most current smoking, or tobacco-related health factor, from the [place] facility where the Encounter took place. Date/Time Current Smoking Status Comment Nora ity Aug 04, 2023 09:00 AM VA-TOBACCO QUIT 15 YRS OR MORE [place] [facility] Tobacco Use History This section includes a history of the smoking, or tobacco-related health factors, that were collected on or before the date of the Encounter. The data comes from the [place] facility where the Encounter took place. Date/Time Smoking Status/Tobacco Use Comment F acility Aug 04, 2023 09:00 AM VA-TOBACCO QUIT 15 YRS OR MORE [facility] [place] [facility] Aug 05, 2022 11:30 AM VA-TOBACCO NEVER USED [place] [facility] [place] [facility] Aug 22, 2021 11:30 AM VA-TOBACCO NEVER USED [place] [facility] [place] [facility] Apr 29, 2020 10:30 AM VA-TOBACCO NEVER USED [place] [facility] [place] [facility] September 21, 2018 09:39 AM [facility]ACCO [facility] September 21, 2018 09:39 AM VA-TOBACCO QUIT 15 YRS OR MORE [facility] Dec 31, 2017 02:50 PM QUIT TOBACCO USE > 7 YEARS AGO [facility] Dec 31, 2016 09:33 AM QUIT TOBACCO USE > 7 YEARS AGO [facility] Dec 31, 2016 09:31 AM QUIT TOBACCO USE 1 -7 YEARS AGO [facility] Jan 08, 2016 01:57 PM QUIT TOBACCO USE > 7 YEARS AGO [facility] Nov 15, 2014 10:48 AM QUIT TOBACCO USE > 7 YEARS AGO quit 1975 [facility] Advance Directives: All historical and current Section Date Range: From patient's date of to the date document was created. This section includes ALL of a patient's completed or amended [place] Advance and Rescinded Directives. The entries below indicate that a directive exists for the patient, but an actual copy is not included with this document. The data comes from all [place] facilities. Date Advance Directives Provider Source Jan 01, 2005 ADVANCE DIRECTIVE KLAUS PAZ [facility] Encounter Notes: All associated encounter notes [...] 11:00 am. /darcy/ LUIS FERNANDO MACEDO ADVANCED MEDICINE AIDE Signed: 03/23/2024 08:47 LUIS FERNANDO MACEDO [facility]
--- OUTSIDE RECORDS SUMMARY | 2024-04-21 08:56 | XMS_ITS | Encounter Summary ---
Author Name [facility] [place] Address [address] [place] [address] Care Team Providers Care Java [id number] Application Developer Name Role Phone LINDA PALOMINO Primary Care [...] PRESCRIPT ION [facility] May 03, 2018 [id number] Tracey BLISS PATIENT [facility] M[facility]AL HEALTH [facility] Jul 01, 2013 [id number] [facility]NALC PREFERRED PROVIDER ORGANIZAT ION (PPO) [facility] Jul 01, 2013 32 [id number] [phone] [facility] PREFERRED PROVIDER ORGANIZAT ION (PPO) [facility] Jan 01, 2011 321 [id number] [phone] Tracey BLISS PATIENT CIG[employer]/NALC PREFERRED PROVIDER ORGANIZAT ION (PPO) [facility] HEALT H BENEF Jan 01, 2011 [id number] Tracey BLISS PATIENT MEDICARE (WNR) MEDICARE (M) PART B Jul 01, 2013 PART B [id number] [phone] Tracey BLISS PATIENT MEDICARE (WNR) MEDICARE (M) PART A Jul 01, 2013 PART A [id number] [phone] Tracey BLISS PATIENT MEDICARE (WNR) MEDICARE (M) PART A Jul 01, 2013 PART A [id number] Tracey BLISS PATIENT [facility] PREFERRED PROVIDER ORGANIZAT ION (PPO) [facility] May 03, 2018 [id number] Tracey BLISS PATIENT [facility] (MED PRIME) PREFERRED PROVIDER ORGANIZAT ION (PPO) [facility] FAM[facility] Jul 01, 2013 322 [id number] Tracey BLISSH PATIENT [facility] (MED PRIME) PREFERRED PROVIDER ORGANIZAT ION (PPO) [facility] Jul 01, 2013 32 [id number] Tracey BLISS PATIENT [facility] -MCR A ONLY Jul 01, 2013 [id number] Tracey BLISS PATIENT [facility]* Jan 01, 2011 [id number] Tracey BLISS PATIENT Selected Encounter This section includes the information on record at [place] for the Encounter. Date/Time Encounter Type Encounter Description Reason Provider Source Mar 24, 2024 11:00 AM OCCLUSAL GUARD SOFT DENTAL ICD-10-CM K08.9 Disorder of teeth and supporting structures, unspecified ASHUTOSH MERCEDES [facility] Encounter Template Text not used by [place] Assessments - Encounter Diagnoses This section includes the primary and secondary diagnoses documented for the Encounter. Date/Time Primary/Secondary Diagnosis Diagnosis Name Provider Source Mar 24, 2024 01:48 PM PRIMARY Disorder of teeth and supporting structures, unspecified ASHUTOSH MERCEDES [place] [facility] [place] [facility] Plan of Treatment: Future Appointments (+ 6 months) and Future Tests (+/- 45 days) The Plan of Treatment section includes future care activities for the patient from all [place] [facility]. This section includes future appointments and future orders which are active, pending or scheduled. Future Appointments This section includes appointments that were scheduled to occur 6 months from the date of the Encounter, up to a maximum of 20 appointments. The data comes from all [place] treatment facilities. Appointment Date/Time Appointment Type Appointme nt Facility Name Apr 17, 2024 01:00 PM AMBULATORY - MEDICINE [facility] [place] [facility] May 16, 2024 10:00 AM AMBULATORY - PSYCHIATRY [place] [facility] [place] [facility] May 16, 2024 11:30 AM AMBULATORY MEDICINE [facility] [place] [facility] May 23, 2024 11:30 AM AMBULATORY PSYCHIATRY [place] [facility] [place] [facility] May 24, 2024 10:30 AM AMBULATORY MEDICINE [facility] [place] [facility] May 30, 2024 10:00 AM AMBULATORY - PSYCHIATRY [place] [facility] [place] [facility] Jun 13, 2024 10:00 AM AMBULATORY - PSYCHIATRY [place] [facility] [place] [facility] Jun 27, 2024 10:00 AM AMBULATORY - PSYCHIATRY [place] [facility] [facility] Social History: Smoking Status (Most current) and Tobacco Use (All prior to encounter date) This section includes the most current, and the historical, smoking and tobacco- related health factors from the [place] facility where the Encounter took place. Current Smoking Status This section includes the most current smoking, or tobacco-related health factor, from the [place] facility where the Encounter took place. Date/Time Current Smoking Status Comment Facil ity Aug 04, 2023 09:00 AM VA-TOBACCO [facility] [place] [facility] Tobacco Use History This section includes a history of the smoking, or tobacco-related health factors, that were collected on or before the date of the Encounter. The data comes from the [place] facility where the Encounter took place. Date/Time Smoking Status/Tobacco Use Comment F acility Aug 04, 2023 09:00 AM VA-TOBACCO QUIT 15 YRS OR MORE [facility] Aug 05, 2022 11:30 AM VA-TOBACCO NEVER USED [facility] Aug 22, 2021 11:30 AM VA-TOBACCO NEVER USED [facility] Apr 29, 2020 10:30 AM VA-TOBACCO NEVER USED [facility] [place] [facility] September 21, 2018 09:39 AM VA-TOBACCO FORMER USER [place] [facility] September 21, 2018 09:39 AM VA-TOBACCO QUIT 15 YRS OR MORE [facility] Dec 31, 2017 02:50 PM QUIT TOBACCO USE > 7 YEARS AGO [place] [facility] [place] [facility] Dec 31, 2016 09:33 AM QUIT TOBACCO USE > 7 YEARS AGO [facility] [place] [facility] Dec 31, 2016 09:31 AM QUIT TOBACCO USE 1 -7 YEARS AGO [place] [facility] [place] [facility] Jan 08, 2016 01:57 PM QUIT TOBACCO USE > 7 YEARS AGO [facility] Nov 15, 2014 10:48 AM QUIT TOBACCO USE > 7 YEARS AGO quit [facility] Advance Directives: All historical and current Section Date Range: From patient's date of to the date document was created. This section includes ALL of a patient's completed or amended [place] Advance and Rescinded Directives. The entries below indicate that a directive exists for the patient, but an actual copy is not included with this document. The data comes from all [place] facilities. Date Advance Directives Provider Source Jan 01, 2005 ADVANCE DIRECTIVE KLAUS PAZ [facility] Encounter Notes: All associated encounter notes This [...] JR, : 1950, Age: 73 Visit: S: Mar 24, 2024@11:00 NHM DENTAL DMD 3 AM. Primary PCE Diagnosis: [...] treatment plan. Patient presentd for the guard immigration delivery.Patient tried on the guard immigration and feel comfortable. POI was given. [place]: Recall/prn /es/ ASHUTOSH MERCEDES DMD Staff Dentist Signed: 03/24/2024 13:48 A[facility]OSH MERCEDES [facility]
--- OUTSIDE RECORDS SUMMARY | 2024-04-21 08:56 | XMS_ITS ---
Author Name [facility] Organization [facility] Address [address] [place] [id number] Care Team Providers Care Predator Control Trapper Name Role Phone LINDA PALOMINO Primary Care [...] to Policy Banegas CAREMARK PRESCRIPT ION [facility] May 03, 2018 [id number] Tracey BLISS PATIENT [employer] [facility] MENTAL HEALTH [facility] Jul 01, 2013 [id number] Tracey BLISS PATIENT CIG[employer]/NALC PREFERRED PROVIDER ORGANIZAT ION (PPO) [facility] Jul 01, 2013 [id number] [phone] Tracey BLISS PATIENT CIG[employer]/NALC PREFERRED PROVIDER ORGANIZAT ION (PPO) [facility] Jan 01, 2011 [id number] [phone] Tracey BLISS PATIENT CIG[employer]/NALC PREFERRED PROVIDER ORGANIZAT ION (PPO) [facility] HEALT H BENEF Jan 01, 2011 [id number] [phone] Tracey BLISS PATIENT MEDICARE (WNR) MEDICARE (M) PART B Jul 01, 2013 PART B [id number] Tracey BLISS PATIENT MEDICARE (WNR) MEDICARE (M) PART A Jul 01, 2013 PART A [id number] [phone] Tracey BLISS PATIENT MEDICARE (WNR) MEDICARE (M) PART A Jul 01, 2013 PART A [id number] Tracey BLISS PATIENT [facility] PREFERRED PROVIDER ORGANIZAT ION (PPO) [facility] May 03, 2018 32 [id number] [phone] Tracey BLISS PATIENT [facility] (MED PRIME) PREFERRED PROVIDER ORGANIZAT ION (PPO) [facility] FAMIL Y Jul 01, 2013 [id number] Tracey BLISSH PATIENT [facility] (MED PRIME) PREFERRED PROVIDER ORGANIZAT ION (PPO) [facility] Jul 01, 2013 32 [id number] Tracey BLISSH PATIENT [facility]AL [facility] -MCR A ONLY Jul 01, 2013 [id number] Tracey BLISS PATIENT [facility]* Jan 01, 2011 [id number] Tracey BLISS PATIENT Selected Encounter This section includes the information on record at [place] for the Encounter. 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 Date/Time Primary/Secondary Diagnosis Diagnosis Name Provider Source Feb 21, 2024 02:33 PM PRIMARY Holland's palsy LINDA PALOMINO [facility] [place] [facility] Feb 21, 2024 02:33 PM SECONDARY Benign lipomatous neoplasm of skin, subcu of [facility] sites LINDA PALOMINO [facility] [place] [facility] Feb 21, 2024 02:33 PM SECONDARY Encounter for immunization ANNA HUERTAS [facility] [place] [facility] Plan of Treatment: Future Appointments (+ 6 months) and Future Tests (+/- 45 days) The Plan of Treatment section includes future care activities for the patient from all [place] treatmentfacilities. This section includes future appointments and [...] AMBULATORY - NONE [facility] [place] [facility] Feb 16, 2024 11:30 AM AMBULATORY - NONE [facility] [place] [facility] Feb 22, 2024 01:45 PM AMBULATORY - MEDICINE [facility] [place] [facility] Mar 24, 2024 11:00 AM AMBULATORY - NONE [facility] [place] [facility] Apr 17, 2024 01:00 PM AMBULATORY - MEDICINE [facility] [place] [facility] May 16, 2024 10:00 AM AMBULATORY - PSYCHIATRY [facility] [place] [facility] May 16, 2024 11:30 AM AMBULATORY - MEDICINE [facility] [place] [facility] May 23, 2024 11:30 AM AMBULATORY - PSYCHIATRY [facility] [place] [facility] May 24, 2024 10:30 AM AMBULATORY - MEDICINE [facility] [place] [facility] May 30, 2024 10:00 AM AMBULATORY - PSYCHIATRY [facility] [place] [facility] Jun 13, 2024 10:00 AM AMBULATORY - PSYCHIATRY [facility] [place] [facility] Jun 27, 2024 10:00 AM AMBULATORY - PSYCHIATRY [facility] [place] [facility] Vital Signs: All taken on the encounter date This section contains inpatient and outpatient Vital Signs collected on the date of the Encounter. Date/Time Temperature Pulse Blood Pressure Respiratory Rate SP02 Pain Height Weight Body Mass Index Source Feb 09, 2024 10:15 AM 130/78 [facility] [place] [facility] Feb 09, 2024 10:01 AM 77 164/77 19 98 201 28 [facility] [place] [facility] Immunizations: All administered on the encounter date [...] YRS OR MORE [facility] [place] [facility] Tobacco Use History This section includes a history of the smoking, or tobacco-related health factors, that were collected on or before the date of the Encounter. The data comes from the [facility] facility where the Encounter took place. Date/Time Smoking Status/Tobacco Use Comment F acility Aug 04, 2023 09:00 AM VA-TOBACCO QUIT 15 YRS OR MORE [facility] [place] [facility] Aug 05, 2022 11:30 AM VA-TOBACCO NEVER USED [facility] [place] [facility] Aug 22, 2021 11:30 AM VA-TOBACCO NEVER USED [facility] [place] [facility] Apr 29, 2020 10:30 AM VA-TOBACCO NEVER USED [facility] [place] [facility] September 21, 2018 09:39 AM VA-TOBACCO FORMER USER [facility] [place] [facility] September 21, 2018 09:39 AM VA-TOBACCO QUIT 15 YRS OR MORE [facility] [place] [facility] Dec 31, 2017 02:50 PM QUIT TOBACCO USE > 7 YEARS AGO [facility] [place] [facility] Dec 31, 2016 09:33 AM QUIT TOBACCO USE > 7 YEARS AGO [facility] [place] [facility] Dec 31, 2016 09:31 AM QUIT TOBACCO USE 1 -7 YEARS AGO [facility] [place] [facility] Jan 08, 2016 01:57 PM QUIT TOBACCO USE > 7 YEARS AGO [facility] Nov 15, 2014 10:48 AM QUIT TOBACCO USE > 7 YEARS AGO quit 1975 [facility] Advance Directives: All historical [...] Jan 01, 2005 ADVANCE DIRECTIVE KLAUS PAZ [facility] Encounter Notes: All associated [...] PF Date Administered: Feb 09, 2024 10:00 Picker Feeder: SANOFI PASTEUR Lot: [id number] Exp Date: Oct 30, 2024 [facility]: [phone] Admin Route/Site: INTRAMUSCULAR/RIGHT DELTOID Dosage: 0.5mL Vaccine Information Statement(s): INFLUENZA(FLU) VACC(INACTIVATED OR RECOMBINANT)VIS Dec 06, 2020 (ITALIAN) Order By: Policy Administered By: Anna Huertas [...] group Date Documented: 02/09/24 10:17 /moe Huertas RN Primary Care Staff Nurse Signed: 02/09/2024 10:17 ANNA HUERTAS [facility] Feb 09, 2024 08:12 AM PHYSICIAN NOTE: LOCAL TITLE: MD NOTE STANDARD TITLE: PHYSICIAN NOTE DATE OF NOTE: FEB 09, 2024@08:12 ENTRY DATE: FEB 09, 2024@08:13:16 AUTHOR: DANIEL PALOMINO EXP COSIGNER: URGENCY: STATUS: COMPLETED HISTORY OF PRESENT ILLNESS: NED Len BLISS, is a 73 yo WHITE MALE who presents at the [facility]. bells palsy HPI. trev [facility] at [facility] to review his medical concerns. [facility]SD. He also has well controlled Ulcerative colitis and on meds per his GI provider. Trev has slowly improving bells palsy but does bite inside of left buccal mucosa and he will d/w dentist safest plan ( he may need ENT consult if any redundant tissue at risk per dental). trev has nocturnal drooling. He also notes lipoma in left uppper arm that seems to be smaller in size over past 6 mos SH nonsmoker Active problems - Computerized Problem List is the source for the followin. Exposure to potentially hazardous substance ([facility] [id number]) 2. Holland's palsy 3. Allergic Rhinitis ([facility] [id number]) 4. Basal cell carcinoma of skin 5. Hyperlipidemia ([facility] [id number]) 6. Anxiety 7. Hemorrhoid 8. Under care of multiple providers 9. History of surgery 10. Ulcerative colitis 11. Posttraumatic stress disorder 12. Chronic sinusitis 13. Neck pain 14. 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 - [facility] FROM May TO Apr COMBAT SERVICE INDICATED: [...] oral care 2. vet prefers to see [facility] surgeon to eval lipoma 3. f/u w/ [...] this [facility] (local) and dispensed from another [facility] or [facility]D facility (remote) as well as [...] MD PHYSICIAN Signed: 02/09/2024 10:30 CHAVEZ PALOMINO [facility]
--- OUTSIDE RECORDS SUMMARY | 2024-04-21 08:57 | XMS_ITS ---
Author Organization Jose Greer MD Address [address] [place] [phone] Care Team Providers Care Associate Civil Engineer Name Role Phone Jose Greer Primary Care [...] Notes Problem Essential tremor (G25.0) Active confirmed [id number] VITAL SIGNS BMI 27.89 kg/m2 08/31/2023 Blood pressure systolic 132 mm Hg 08/31/19 24 Blood pressure diastolic 60 mm Hg 024 Height 71 in 08/31/2023 Weight 200 lbs 08/31/2023 Encounters Encounter Location Date Provider Diagnosis Jose Greer MD [address] [place], [place] [phone] 08/31/2023 Jose Greer Rising PSA level R97 [...] psa Provider Name:Jose cowan, 08/29/2024 07:30:00 AM, [address] [place] [address], [address], [phone], Provider Name:Jose cowan, 09/05/2024 10:30:00 AM, [address] [place] [address], [address] [place] [address], [phone], Progress Notes * Examination Category Sub-Category Detail [...]
--- OUTSIDE RECORDS SUMMARY | 2024-04-21 08:57 | XMS_ITS ---
Author Organization Jose Greer MD Address [address] [place] [phone] Care Team Providers Care Manufacturing Millwright Name Role Phone Jose Greer Primary Care Provider [phone] RESULTS Component Value Reference Range Notes Blood Urea Nitrogen Reviewed date:03/02/2024 12:35:00 PM Interpretation: Performing Lab:[facility], [address] [place] [phone] Notes/Report: Blood Urea Nitrogen 16 9-16 mg/dL Creatinine Reviewed date:03/02/2024 12:30:45 PM Interpretation: Performing Lab:[address] [phone] Notes/Report: Creatinine 0.98 0.5-1.4 mg/dL Estimated Glomerular Filt Rate > 60 NOTE: For -[place] individuals, multiply the result by 1.210. Chronic Kidney Disease: Estimated GFR < 60 mL/min/1.73m2 Severe Kidney Disease: Estimated GFR < 15 mL/min/1.73m2 PSA,Total (Free>4and<10) Reviewed date:03/02/2024 12:38:14 PM Interpretation: Performing Lab:[facility], [address] [place] [phone] Notes/Report: PSA,Total (Free>4and<10) 2.94 0.00-4.00 ng/mL A [...] between 4.0 and 10.0 ng/mL. PSA methodology: [employer] i Chemiluminescent Microparticle Immunoassay (CMIA) REASON FOR VISIT PSA, bun and creatine Encounters Encounter Location Date Provider Diagnosis Jose Greer MD [address] [place] [phone] 03/02/2024 Jose Greer Erectile dysfunction N52.9 ; Elevated BUN R79.9 and Rising PSA level R97.20 ASSESSMENTS Encounter Date Diagnosis Assessment Notes Treatment Notes Treatment Clinical Notes 03/02/2024 Erectile dysfunction (ICD-10 - N52.9) 03/02/2024 Elevated BUN (ICD-10 - R79.9) 03/02/2024 Rising PSA level (ICD-10 - R97.20) PLAN OF TREATMENT Next Appt Details Provider Name:Jose cowan, 08/29/2024 07:30:00 AM, [address] [place] [address], [address], [phone], Provider Name:Jose cowan, 09/05/2024 10:30:00 AM, [address] [place] [address], [address], [phone],
--- OUTSIDE RECORDS SUMMARY | 2024-04-21 08:57 | XMS_ITS ---
Author Organization Jose Greer MD Address [address] [place] [phone] Care Team Providers Care Energy Specialist Name Role Phone Jose Greer Primary Care [...] Date Provider Diagnosis Jose Greer MD [address] [place] [address] [place] [phone] 03/09/2024 Jose Greer Elevated BUN R79.9 ; [...] Provider Name:Jose cowan, 08/29/2024 07:30:00 AM, [address] [place] [address], [address] [place] [address], [phone], Provider Name:Jose cowan, 09/05/2024 10:30:00 AM, [address] [place] [address], [place] [address], [place], [place], [phone], Progress Notes * Examination Category Sub-Category Detail [...]
--- OUTSIDE RECORDS SUMMARY | 2024-04-21 08:57 | XMS_ITS ---
Author Organization [facility] Address [address] [place] [address] Care Team Providers Care Magistrate Name Role Phone Juan M Hernandez MD Primary Care Provider Un available Dae Marcelino Unavailable [phone] DONNELL Gonzalez Kasey Unavailable Unavailable REASON FOR VISIT Addendum Encounters Encounter Location Date Provider Diagnosis [facility] [address] [place] [address] 10/08/2023 Dae Marcelino PLAN OF TREATMENT No Information
--- OUTSIDE RECORDS SUMMARY | 2024-04-21 08:57 | XMS_ITS | Patient Health Record ---
Author Organization Jose Greer MD Address [address] [place], [place] [id number] Care Team Providers Care Life Insurance Underwriter Name Role Phone Jose Greer Primary Care Provider ALLERGIES No Known Allergies RESULTS Component Value Reference Range Notes Complete Blood Count Auto Di ff Reviewed date:08/02/2023 11:00:13 AM Interpretation: Performing Lab:[facility], [address] [place] [phone] Notes/Report: White Blood Count 5.9 4.8-10.8 X10*3/uL [...] INR Reviewed date:08/01/2023 08:45:11 AM Interpretation: Performing Lab:[address] [address] Notes/Report: Prothrombin Time 10.9 11.1-13.3 SEC INTERNATIONAL [...] Time Reviewed date:08/01/2023 08:42:49 AM Interpretation: Performing Lab:[address] [address] Notes/Report: Partial Thromboplastin Time 27.9 26.0-36.8 SEC For information regarding the monitoring of direct thrombin inhibitors, please refer to Pharmacy. Liver Panel Reviewed date:08/01/2023 08:42:59 AM Interpretation: Performing Lab:[facility], [address] [place] [phone] Notes/Report: Bilirubin Total 0.3 0.0-1.0 mg/dL Bilirubin Direct 0.1 0.0-0.5 mg/dL Aspartate Amino Transferase 17 5-37 U/L Alanine Aminotransferase 18 0-40 U/L Total Protein 7.5 6.5-8.0 g/dL Albumin Level 4.1 3.5-5.0 g/dL Alkaline Phosphatase 64 39-117 U/L Basic Metabolic Panel Reviewed date:08/01/2023 12:44:46 PM Interpretation: Performing Lab:[facility], [address] [place] [phone] Notes/Report: Sodium 139 135-145 mmol/L Potassium 3.4 [...] Glomerular Filt Rate > 60 NOTE: For -Gibraltarian individuals, multiply the result by 1.210. Chronic Kidney Disease: Estimated GFR < 60 mL/min/1.73m2 Severe Kidney Disease: Estimated GFR < 15 mL/min/1.73m2 Glucose Random 150 60-115 mg/dL Calcium 8.9 8.4-10.2 mg/dL Creatine Kinase Total Reviewed date:08/01/2023 08:46:29 AM Interpretation: Performing Lab:[facility], [address] [place] [phone] Notes/Report: Creatine Kinase Total 84 38-174 U/L Troponin-I High Sensitivity Reviewed date:08/01/2023 08:42:41 AM Interpretation: Performing Lab:[facility], [address] [place] [phone] Notes/Report: Troponin-I High Sensitivity < 2.7 <3.5-35.0 ng/ L [place] high sensitivity Troponin-I results should be used in conjunction with other diagnostic information such as ECG, clinical observations and information, and patient symptoms to aid in the diagnosis of MS. INR WHOLE BLOOD POC Reviewed date:08/01/2023 08:42:21 AM Interpretation: Performing Lab:[facility], [address] [place] [phone] Notes/Report: PT, INR - Anti Coag Clinic 1.0 0.9-1.1 METER #: [id number] INTERNATIONAL NORMALIZED RATIO (INR) REFERENCE RANGES Reference [...] OC Reviewed date:08/01/2023 08:51:33 AM Interpretation: Performing Lab:[facility], [address] [place] [phone] Notes/Report: Prothrombin Time Whole Bld POC 12.3 11.1-13.5 sec Glucose, Whole Blood Reviewed date:08/01/2023 08:42:29 AM Interpretation: Performing Lab:[facility], [address] [place] [phone] Notes/Report: Glucose, Whole Blood 143 60-115 mg/dL METER # : [id number] CT head for stroke Reviewed date:08/01/2023 08:42:10 AM Interpretation: Performing Lab: Notes/Report: [address] [address] [address] Scan Report Signed Patient: Mark Rayo MR#: [id number] : 1950 Acct:[id number] Age/Sex: 73 / M ADM Date: 07/30/23 Loc: HO.ED Attending Dr: Ordering Physician: Ada Ruiz CNP Date of Service: 07/30/23 Procedure(s): CT head for stroke Accession Number(s): [id number] cc: Ada Ruiz CNP; Jose Greer MD [...] Crawford in OV> 07/30/231858 DD/ 49 TD/TT: Plaster Machine Operator: Urine Culture Reviewed date:08/24/2023 12:45:06 PM Interpretation: Performing Lab:[facility], [address] [place] [phone] Notes/Report: Urine Culture No growth. Complete Blood Count Auto Di ff Reviewed date:08/23/2023 12:44:31 PM Interpretation: Performing Lab:[facility], [address] [place] [phone] Notes/Report: White Blood Count 4.7 4.8-10.8 X10*3/uL [...] NRBC Abs Auto 0.000 0.0-0.012 X10*3/uL Comprehensive [place]. Panel Fa st Reviewed date:08/23/2023 01:24:32 PM Interpretation: Performing Lab:[facility], [address] [place] [phone] Notes/Report: Sodium 142 135-145 mmol/L Potassium 4.1 3.3-5.1 mmol/L Chloride 107 96-108 mmol/L Carbon Dioxide 29 22-29 mmol/L Anion Gap 10 12-20 Blood Urea Nitrogen 21 9-16 mg/dL Creatinine 1.05 0.5-1.4 mg/dL Estimated Glomerular Filt Rate > 60 NOTE: For -Gibraltarian individuals, multiply the result by 1.210. Chronic [...] Panel Reviewed date:08/23/2023 12:46:04 PM Interpretation: Performing Lab:[address] [address] Notes/Report: Triglycerides 79 <150 mg/dL Desirable Triglyceride: [...] (Free>4and<10) Reviewed date:08/23/2023 12:49:03 PM Interpretation: Performing Lab:[address] [address] Notes/Report: PSA,Total (Free>4and<10) 3.19 0.00-4.00 ng/mL A [...] Random Reviewed date:08/23/2023 12:38:28 PM Interpretation: Performing Lab:[address] [address] Notes/Report: Creatinine Urine 242.92 Microalbumin Urine 9.0 Microalbum/Creatinine Ratio Ur 3.7 <30 ug/mg cr Albumin/Creatinine Ratio Reference Ranges: Normal: < 30 ug/mg creatinine Microalbuminuria: 30 - 300 ug/mg creatinine Clinical Albuminuria: > 300 ug/mg creatinine Hemoglobin A1c Reviewed date:08/23/2023 12:37:27 PM Interpretation: Performing Lab:[address] [phone] Notes/Report: Hemoglobin A1c % 5.8 <6.0 % [...] average glucose, using the formula of the [id number]-Twmftyl Average Glucose study (ADAG), Diabetes Care, Vol.31,#8, Dec. 2007 UA ClnCatch+Micro w/rflx Cul t Reviewed date:08/24/2023 12:47:12 PM Interpretation: Performing Lab:[address] [address] Notes/Report: [id number] 0730 Urine, Clean Catch Color Urine Yellow Appearance Urine Clear PH 5.5 5.0-9.0 Glucose Urine UA Negative Negative mg/dL Urine Blood Negative Negative Specific Elsa - Urine 1.025 1.005-1.025 Urine Protein Negative [...] Pathology Reviewed date:09/13/2023 12:43:42 PM Interpretation: Performing Lab:[facility], [address] [place] [phone] Notes/Report: Blood Urea Nitrogen Reviewed date:03/02/2024 12:35:00 PM Interpretation: Performing Lab:[facility], [address] [place] [phone] Notes/Report: Blood Urea Nitrogen 16 9-16 mg/dL Creatinine Reviewed date:03/02/2024 12:30:45 PM Interpretation: Performing Lab:[facility], [address] [place] [phone] Notes/Report: Creatinine 0.98 0.5-1.4 mg/dL Estimated Glomerular Filt Rate > 60 NOTE: For -Gibraltarian individuals, multiply the result by 1.210. Chronic Kidney Disease: Estimated GFR < 60 mL/min/1.73m2 Severe Kidney Disease: Estimated GFR < 15 mL/min/1.73m2 PSA,Total (Free>4and<10) Reviewed date:03/02/2024 12:38:14 PM Interpretation: Performing Lab:[facility], [address] [place] [phone] Notes/Report: PSA,Total (Free>4and<10) 2.94 0.00-4.00 ng/mL A [...] date:03/14/2024 12:47:55 PM Interpretation: Performing Lab: Notes/Report: [place] [address] Magnetic Resonance Report Signed Patient: Mark Rayo MR#: [id number] : 1950 Acct:[id number] Age/Sex: 73 / M ADM Date: 03/14/24 Loc: HO.MRI Attending Dr: Arnie Mccormick MD Ordering Physician: Arnie Mccormick MD Date of Service: 03/14/24 Procedure(s): MR dove LT wo/w con Accession Number(s): [id number] cc: Jose Greer MD; Arnie Mccormick MD [...] by: Joe Shrestha MD 03/14/2024 12:33 PM [facility] Dictated By: Joe Shrestha MD Signed By: <Electronically signed by Joe Shrestha MD in OV> 03/14/24 1233 DD/ 1124 TD/TT: 03/14/24 1154 Plaster Machine Operator: SR REASON FOR REFERRAL No Information MEDICATIONS [...] 02/01/2013 Administered Flu Vaccine Unknown 03/06/2014 Administered [facility] PPSV23 (Pnemovax) IM Intramuscular 05/18/2014 Administered TDaP IM Intramuscular 06/05/2014 Administered Flu Vaccine IM Intramuscular 02/21/2015 Administered pt re cieved the [facility] dose flu at [facility] in [place]. 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 11434825 Problem Degeneration of cervical intervertebral disc (M50.30) Active confirmed 64924829 Problem Pure hypercholesterolemia (E78.00) Active confirmed 669019408 Problem Increased prostate specific antigen (PSA) velocity (R97.20) Active confirmed 924927839 VITAL SIGNS Blood pressure diastolic 60 mm [...] Location Date Provider Diagnosis Jose Greer MD [address] [place] [address] [place] [id number] 08/31/2023 Jose Greer Rising PSA level R97 .20 ; Annual physical exam Z00.00 ; Elevated BUN R79.9 ; Essential tremor G25.0 ; 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 ; Prediabetes R73.09 ; Pure hypercholesterolemia E78.00 ; Colon cancer screening Z12.11 and Depression screening Z13.31 Jose Greer MD [address] [place] [address] Drive [address] [place] [id number] 08/23/2023 Jose Greer Blood tests for rout ine general physical examination Z00.00 ; Prediabetes R73.09 and Pure hypercholesterolemia E78.00 Jose Greer MD [address] [place] [address] Drive [address] [place] [id number] 03/02/2024 Jose Greer Erectile dysfunction N52.9 ; Elevated BUN R79.9 and Rising PSA level R97.20 Jose Greer MD [address] [place] [address] Drive [address] [place] [id number] 03/09/2024 Jose Greer Elevated BUN R79.9 ; Rising PSA level R97.20 and Mass of left upper extremity R22.32 Jose Greer MD [address] [place] [address] Drive [address] [place] [id number] 08/02/2023 Jose Greer ASSESSMENTS Encounter Date Diagnosis [...] Provider Name:Jose Coates ier, 08/29/2024 07:30:00 AM, [address] [place] [address], [address], [phone], Provider Name:Jose Coates ier, 09/05/2024 10:30:00 AM, [address] [place] [address], [place] [address], [place], [place], [id number], Insurance Providers Payer Name Payer Address Payer Phone Subscriber Number Group Number Insured Name Patient Relationship to Insured Coverage Start Date Coverage End Date [facility] [employer] [address] [place], [place] [address] [phone] [id number] Mark Rayo Self - patient is the insured MEDICAL (GENERAL) HISTORY Medical History History ICD Code colonoscopy 10/2006 due in 15; colonoscopy done 06/11/[address] Marcelino (repeat 5 yrs)09/10/23 colonoscopy repeat 3y 09/02/20 Colonoscopy completed, due 3 yrs 2024
--- OUTSIDE RECORDS SUMMARY | 2024-04-21 08:58 | XMS_ITS ---
Author Organization [facility] Address [address] [place] [address] Care Team Providers Care Spa Assistant Manager Name Role Phone Juan M Hernandez MD Primary Care Provider Un available Dae Marcelino Unavailable [phone] DONNELL Gonzalez Kasey Unavailable Unavailable REASON FOR VISIT screening,hx polyps,ulcerative rectosigmoiditis PROBLEMS Problem Type ICD Code Onset Dates Problem Status W/U Status Risk SNOMED Code Notes Problem Personal history of colonic polyps (Z86.010) Active confirmed History of polyp of colon (situation) (191642047) Problem Diverticulosis of large intestine without perforation or abscess without bleeding (K57.30) Active confirmed Diverticul ar disease of colon (130129154) Encounters Encounter Location Date Provider Diagnosis [facility] [place] [address] [place] [id number] 09/10/2023 Dae Marcelino Ulcerative rectosigmoiditis without complication [...]
--- OUTSIDE RECORDS SUMMARY | 2024-04-21 08:58 | XMS_ITS ---
Author Organization [facility] Address [address] [place] [address] Care Team Providers Care Technology Consultant Name Role Phone Juan M Hernandez MD Primary Care Provider Un available Dae Marcelino Unavailable [phone] DONNELL Gonzalez Kasey Unavailable Unavailable REASON FOR VISIT refill scripts MEDICATIONS Medication SIG (Take, Route, Frequency, Duration) Notes Start Date End Date Status Mesalamine 1000 MG 1 suppository at bed time Rectal Every night at bedtime for 30 days 06/02/2022 Active Balsalazide Disodium 750 MG 3 capsules Orally Twice a day for 30 days Active Encounters Encounter Location Date Provider Diagnosis [facility] [address] [place] [phone] 10/05/2023 Dae Marcelino PLAN OF TREATMENT Medication Medication Name Sig Start Date Stop Date Notes Mesalamine 1000 MG 1 suppository at bed time Rectal Every night at bedtime for 30 days 06/02/2022 Balsalazide Disodium 750 MG 3 capsules O rally Twice a day for 30 days
--- OUTSIDE RECORDS SUMMARY | 2024-04-21 08:58 | XMS_ITS | Patient Health Record ---
Author Organization [facility] Address [address] [facility] [address] [place] [phone] Care Team Providers Care Control And Recovery Special Tactics Name Role Phone Juan M Hernandez MD Primary Care Provider Un available Dae Marcelino Unavailable [phone] DONNELL Gonzalez Aksey Unavailable Unavailable ALLERGIES No Known Allergies RESULTS Component Value Reference Range Notes Pathology (Not yet reviewed by provider) Interpretation: Performing Lab:[facility], [address] [place] [phone] Notes/Report: REASON FOR REFERRAL Referring Provider First Name Juan M Referring Provider Last Name David Referring Provider Speciality Internal M edicine Referred Organization [facility] Referred Provider Dae Marcelino Referred Address [address] [place] [address],[address],[place], [place],[address], Referred Provider Specialty Gastroentero logy Referral Priority [...] Problem Colon cancer screening (Z12.11) Active confirmed 673766911 Problem Encounter for screening for malignant neoplasm of colon (Z12.11) Active confirmed 474990089 Problem History of adenomatous polyp of colon (Z86.010) Active confirmed 516149131 Problem Personal history of colonic polyps (Z86.010) Active confirmed History of polyp of colon (situation) (198215181) Problem Diverticulosis of large intestine without perforation or abscess without bleeding (K57.30) Active confirmed Diverticul ar disease of colon (658811540) Problem Encounter for screening for malignant neoplasm of rectum (Z12.12) Active confirmed Screening for malignant neoplasm of rectum (206865932) Problem History of colon polyps (Z86.010) Active confirmed 709275608 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 76467141 Problem Hx of adenomatous colonic polyps (Z86.010) Active confirmed 814420664 Encounters Encounter Location Date Provider Diagnosis [facility] [place] [address] [place] [id number] 09/10/2023 Dae Marcelino 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 ; Personal history of colonic polyps Z86.010 ; Diverticulosis of large intestine without perforation or abscess without bleeding K57.30 and Internal hemorrhoids K64.8 [facility] [address] [place] [phone] 05/11/2023 Dae Marcelino Colon cancer screeni ng Z12.11 ; 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 and History of adenomatous polyp of colon Z86.010 [facility] [address] [place] [phone] 06/11/2023 Dae Marcelino [facility] [address] [place] [address] 07/14/2023 Dae Ryland [facility] [address] [place] [phone] 07/27/2023 Dae Marcelino [facility] [address] [place] [phone] 07/27/2023 Dae Marcelino [facility] [address] [place] [phone] 08/30/2023 Dae Marcelino [facility] [address] [place] [phone] 10/05/2023 Dae Marcelino [facility] [address] [place] [phone] 10/08/2023 Dae Marcelino ASSESSMENTS Encounter Date Diagnosis [...] Insured Coverage Start Date Coverage End Date [facility] [employer] [address] [place] [id number] NED BLISS Self - patient is the insured MEDICAL (GENERAL) HISTORY Medical History History ICD Code Ulcerative colitis-dx'd in 10/2006-[facility] ed the rectum and sigmoid colon Denies HI,DM,CVA,Lung disease,renal dise ase Herniated cervical spine disc [...]
[2024-04-21] MEDS: Lactated Ringers 1,000 ML 100 ML IVCONT (09:21)
[2024-04-21 09:32] VITALS: BP 155/85; PULSE 78; RESP 18; TEMP 36.7; O2SAT 98
--- NOTE | 2024-04-21 12:06 | P.CONAN_ITS ---
Documented by User: Sofya Moreland NP 04/19/24 15:02 HPI - Anesthesia Eval Consult details Narrative: 73yo M for Left Wide Local Excision Triceps Intramuscular Mass s/p Victoria 09/2023 with [facility] PMF[facility] Active Problems Active Problems: All Active Problems Intramuscular lipoma (Acute) Tumor (Acute) Past Medical History Medical History Bronchitis Hiatal hernia Cervical disc herniation Hx of ulcerative colitis Family History Family history of problems with anesthesia: No Surgical History Surgical History Hx of inguinal hernia repair Hx of umbilical hernia repair H/O colonoscopy History of Problems with Anesthesia: No Social History Social History Household Members: Spouse Are you a primary director of career services to a significant other at home: No Do you presently have visiting nurse or other home services: No Patient Tobacco Use Status: Former Tobacco user Have you been hit, kicked, punched, or otherwise hurt by someone within the past year? If so, by whom?: No Are you DNR?: No Advance Directives: No Advance Directives Information Provided: Yes Recently lost weight without trying: No Nutrition Risks: No Nutritional Risk Meds Allergies Allergy/AdvReac Type Severity Reaction Status Date / Time Seasonal Allergies Allergy Intermediate Itchy Eyes Verified 04/21/24 09:12 Home Medications ?Medication ?Instructions ?Recorded ?Confirmed ?Last Taken ?Type albuterol sulfate 90 mcg/actuation 2 puff inhalation Q4-6H PRN 08/28/20 04/21/24 Unknown History aerosol inhaler (Ventolin HFA) Wheezing balsalazide 750 mg capsule 2,250 mg PO BID 08/28/20 04/21/24 Unknown History bupropion HCl 08/28/20 03/21/24 Unknown History carisoprodol 350 mg tablet 1 tab PO Q8H PRN Pain 08/28/20 04/21/24 Unknown History fluticasone propionate 50 1 spray intranasal DAILY 08/28/20 04/21/24 Unknown History mcg/actuation nasal spray,suspension lorazepam 0.5 mg tablet 1 tab PO DAILY PRN Anxiety 08/28/20 04/21/24 Unknown History mesalamine 1,000 mg rectal 1 g CO BEDTIME PRN loose stools 08/28/20 04/21/24 Unknown History suppository (Canasa) Exam Height,Weight and Vital Signs: Weight 93.44 kg Assessment and Plan Assessment Anesthesia Assessment: Chart Reviewed Final Anesthetic Review Family History of Problems with Anesthesia: No History of Problems with Anesthesia: No Documented by User: Hannah Jackson, 04/21/24 12:08 [facility] Past Medical History Medical History Bronchitis Hiatal hernia Cervical disc herniation Hx of ulcerative colitis Family History Family history of problems with anesthesia: No Surgical History Surgical History Hx of inguinal hernia repair Hx of umbilical hernia repair H/O colonoscopy History of Problems with Anesthesia: No Social History Social History Household Members: Spouse Are you a primary director of career services to a significant other at home: No Do you presently have visiting nurse or other home services: No Patient Tobacco Use Status: Former Tobacco user Have you been hit, kicked, punched, or otherwise hurt by someone within the past year? If so, by whom?: No Are you DNR?: No Advance Directives: No Advance Directives Information Provided: Yes Recently lost weight without trying: No Nutrition Risks: No Nutritional Risk Meds Allergies Allergy/AdvReac Type Severity Reaction Status Date / Time Seasonal Allergies Allergy Intermediate Itchy Eyes Verified 04/21/24 09:12 Home Medications ?Medication ?Instructions ?Recorded ?Confirmed ?Last Taken ?Type albuterol sulfate 90 mcg/actuation 2 puff inhalation Q4-6H PRN 08/28/20 04/21/24 Unknown History aerosol inhaler (Ventolin HFA) Wheezing balsalazide 750 mg capsule 2,250 mg PO BID 08/28/20 04/21/24 Unknown History bupropion HCl 04/28/21 11/19/24 Unknown History carisoprodol 350 mg tablet 1 tab PO Q8H PRN Pain 08/28/20 04/21/24 Unknown History fluticasone propionate 50 1 spray intranasal DAILY 08/28/20 04/21/24 Unknown History mcg/actuation nasal spray,suspension lorazepam 0.5 mg tablet 1 tab PO DAILY PRN Anxiety 08/28/20 04/21/24 Unknown History mesalamine 1,000 mg rectal 1 g CO BEDTIME PRN loose stools 08/28/20 04/21/24 Unknown History suppository (Canasa) Exam Exam Date and Time: 04/21/24 1205 Height,Weight and Vital Signs: Weight 93.44 kg Vital Signs Temperature 98.0 F 04/21/24 09:32 Pulse Rate 78 04/21/24 09:32 Respiratory Rate 18 04/21/24 09:32 Blood Pressure 155/85 H 04/21/24 09:32 Pulse Oximetry 98 04/21/24 09:32 Oxygen Delivery Method Room Air 04/21/24 09:32 Temperature 98.0 F 04/21/24 09:32 Pulse Rate 78 04/21/24 09:32 Respiratory Rate 18 04/21/24 09:32 Blood Pressure 155/85 H 04/21/24 09:32 Pulse Oximetry 98 04/21/24 09:32 Oxygen Delivery Method Room Air 04/21/24 09:32 Airway Mallampati Class: II TM Dist: >3cm Neck ROM: Full Loose/Missing/Broken Teeth: No (patient denies any loose or broken teeth) Heart: S1S2 Lungs: CTAB Assessment and Plan Assessment Anesthesia Assessment: Anesthesia Plan Discussed and Chart Reviewed Final Anesthetic Review Family History of Problems with Anesthesia: No History of Problems with Anesthesia: No NPO: Yes ASA Class: II Final Preanesthetic Review: No Changes in Pt Med Stat, Meds/Allgs Chart Reviewed, Consent Obtained/Reviewed and Anes Risks/Benef Reviewed Patient Risk: Low Procedure Risk: Low Anesthetic Plan Anesthetic Plan: MAC: and Agree w/ Assess. and Plan Disposition: Standard PACU
--- NOTE | 2024-04-21 12:56 | W.PM.OPN ---
Operative Note Operative Note Date of Service: 04/21/24 Narrative: Preoperative diagnosis: [] Left triceps intramuscular lipoma Postop diagnosis: [] The same Procedure [] excision left triceps deep intramuscular lipoma Surgeon: [] Jace Deputy Chief Magistrate: [] Michelle Type of Anesthesia: [] MAC Indication for surgery: [] Final specimen measured roughly 8 x 6 cm consistent with a multilobulated deeply situated/intramuscular triceps lipoma Findings: [] Patient brought to the operating room, placed on operative table supine position, after an adequate level of MAC anesthesia was induced, the left upper extremity was prepped and draped in usual sterile fashion. A oblique incision was made over the triceps area overlying the mass in question and carried down through skin, subcutaneous tissue, were triceps muscles were split and dissection down through the intramuscular lipoma was accomplished using combination of blunt and sharp dissection. Lipoma which was multilobulated was uneventfully enucleated and sent to pathology. Wound was irrigated, secured hemostasis, and closed in the following manner; triceps muscles which was splint were reapproximated using interrupted 2-0 Vicryl suture. Subcutaneous tissue was reapproximated using interrupted 3-0 Vicryl suture. Interrupted inverted dermal 3-0 Vicryl sutures followed by Steri-Strips and sterile dressings were applied. Wound was infiltrated at the beginning at the end with 0.5% Marcaine/1% lidocaine. Sponge, needle, and instrument counts were reported correct. Patient tolerated the procedure well and emerged from anesthesia stable condition. EBL minimal. Extremity was neurovascularly intact at completion of the procedure
[2024-04-21 13:03] VITALS: BP 129/61; PULSE 62; RESP 16; TEMP 36.7; O2SAT 98
[2024-04-21 13:15] VITALS: BP 131/57; PULSE 62; RESP 16; TEMP 36.7; O2SAT 98
== END 2024-04-21 13:50 | disposition home or self-care (01) ==
PROVIDERS: Pathology Cytopathology; PCP Internal Medicine; Visit Provider Surgery
PROC: (CPT 24073; principal; 2024-04-21 11:20)
DX: D17.22 Benign lipomatous neoplasm of skin and subcutaneous tissue of left arm (principal); J40 Bronchitis, not specified as acute or chronic; Z79.899 Other long term (current) drug therapy; Z87.891 Personal history of nicotine dependence; Z98.890 Other specified postprocedural states
CPT/HCPCS: 24073; 88304; 88377; J0131; J0690; J1100; J1885; J2003; J2704; J2795; J3010

== ENCOUNTER → 2024-04-21 08:46 | Outpatient (BNV) | payer OTHER, SELFPAY | PROVIDERS: PCP Internal Medicine; Visit Provider Surgery | DX: D17.22 Benign lipomatous neoplasm of skin and subcutaneous tissue of left arm (principal) | CPT/HCPCS: 24073 ==

== ENCOUNTER 2024-05-01 10:44 | Outpatient (AMB) | payer OTHER, SELFPAY ==
--- NOTE | 2024-05-01 10:45 | A.OFFVIS_ITS ---
Intake Visit Reasons: s/p WLE left tricep Intake Note: Patient here s/p excision left triceps deep intramuscular lipoma. Reports incision healing well. Patient c/o: steri strips in place. Surgery: 04-21-2024 Mulcher Operator Required: No Accompanied by: Spouse Allergies Seasonal Allergies Allergy (Intermediate, Verified 05/01/24 10:47) Itchy Eyes HPI Comments Details: Patient presents with a by follow-up. Aside from incisional discomfort which is improving otherwise doing well. No other left upper extremity symptoms. Pathology is benign. 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 Left upper extremity grossly neurovascularly intact. Assessment & Plan Assessment & Plan (1) Postop check: Code(s): Z09 - Encounter for follow-up examination after completed treatment for conditions other than malignant neoplasm Category: Surgical Plan Patient and have been given local instructions and patient otherwise follow-up p.r.n.. He should avoid strenuous activities next few weeks time. All questions answered. Coding Level of Care Code Global (89054) Diagnoses Postop check Z09
--- OUTSIDE RECORDS SUMMARY | 2024-05-01 10:48 | XMS_ITS ---
Author Organization Jose Greer MD Address [address] [place] [phone] Care Team Providers Care Gis Manager Name Role Phone Jose Greer Primary Care [...] Location Date Provider Diagnosis Jose Greer MD [address] [place] [address] [place] [phone] 03/09/2024 Jose Greer Elevated BUN R79.9 ; [...] Details Provider Name:Jose cowan, 08/29/2024 07:30:00 AM, [address] [place] [address], [address] [place] [address], [phone], Provider Name:Jose cowan, 09/05/2024 10:30:00 AM, [address] [place] [address], [place] [address], [place], [place], [phone], Progress Notes * Examination Category Sub-Category Detail [...]
--- OUTSIDE RECORDS SUMMARY | 2024-05-01 10:48 | XMS_ITS ---
Author Organization Jose Greer MD Address [address] [place] [phone] Care Team Providers Care Human Resources Operations Manager Name Role Phone Jose Greer Primary Care Provider [phone] RESULTS Component Value Reference Range Notes Blood Urea Nitrogen Reviewed date:03/02/2024 12:35:00 PM Interpretation: Performing Lab:[facility], [address] [place] [phone] Notes/Report: Blood Urea Nitrogen 16 9-16 mg/dL Creatinine Reviewed date:03/02/2024 12:30:45 PM Interpretation: Performing Lab:[address] [phone] Notes/Report: Creatinine 0.98 0.5-1.4 mg/dL Estimated Glomerular Filt Rate > 60 NOTE: For -Norwegian individuals, multiply the result by 1.210. Chronic Kidney Disease: Estimated GFR < 60 mL/min/1.73m2 Severe Kidney Disease: Estimated GFR < 15 mL/min/1.73m2 PSA,Total (Free>4and<10) Reviewed date:03/02/2024 12:38:14 PM Interpretation: Performing Lab:[facility], [address] [place] [phone] Notes/Report: PSA,Total (Free>4and<10) 2.94 0.00-4.00 ng/mL A [...] between 4.0 and 10.0 ng/mL. PSA methodology: [employer] i Chemiluminescent Microparticle Immunoassay (CMIA) REASON FOR VISIT PSA, bun and creatine Encounters Encounter Location Date Provider Diagnosis Jose Greer MD [address] [place] [phone] 03/02/2024 Jose Greer Erectile dysfunction N52.9 ; Elevated BUN R79.9 and Rising PSA level R97.20 ASSESSMENTS Encounter Date Diagnosis Assessment Notes Treatment Notes Treatment Clinical Notes 03/02/2024 Erectile dysfunction (ICD-10 - N52.9) 03/02/2024 Elevated BUN (ICD-10 - R79.9) 03/02/2024 Rising PSA level (ICD-10 - R97.20) PLAN OF TREATMENT Next Appt Details Provider Name:Jose cowan, 08/29/2024 07:30:00 AM, [address] [place] [address], [address], [phone], Provider Name:Jose cowan, 09/05/2024 10:30:00 AM, [address] [place] [address], [address], [phone],
--- OUTSIDE RECORDS SUMMARY | 2024-05-01 10:49 | XMS_ITS | Patient Health Record ---
Author Organization Jose Greer MD Address [address] [place], [place] [phone] Care Team Providers Care Squad Sergeant Name Role Phone Jose Greer Primary Care Provider ALLERGIES No Known Allergies RESULTS Component Value Reference Range Notes Complete Blood Count Auto Di ff Reviewed date:08/02/2023 11:00:13 AM Interpretation: Performing Lab:[facility], [address] [place] [phone] Notes/Report: White Blood Count 5.9 4.8-10.8 X10*3/uL [...] INR Reviewed date:08/01/2023 08:45:11 AM Interpretation: Performing Lab:[address] [phone] Notes/Report: Prothrombin Time 10.9 11.1-13.3 SEC INTERNATIONAL [...] Time Reviewed date:08/01/2023 08:42:49 AM Interpretation: Performing Lab:[address] [phone] Notes/Report: Partial Thromboplastin Time 27.9 26.0-36.8 SEC For information regarding the monitoring of direct thrombin inhibitors, please refer to Pharmacy. Liver Panel Reviewed date:08/01/2023 08:42:59 AM Interpretation: Performing Lab:[facility], [address] [place] [phone] Notes/Report: Bilirubin Total 0.3 0.0-1.0 mg/dL Bilirubin Direct 0.1 0.0-0.5 mg/dL Aspartate Amino Transferase 17 5-37 U/L Alanine Aminotransferase 18 0-40 U/L Total Protein 7.5 6.5-8.0 g/dL Albumin Level 4.1 3.5-5.0 g/dL Alkaline Phosphatase 64 39-117 U/L Basic Metabolic Panel Reviewed date:08/01/2023 12:44:46 PM Interpretation: Performing Lab:[facility], [address] [place] [phone] Notes/Report: Sodium 139 135-145 mmol/L Potassium 3.4 [...] Glomerular Filt Rate > 60 NOTE: For -Central African individuals, multiply the result by 1.210. Chronic Kidney Disease: Estimated GFR < 60 mL/min/1.73m2 Severe Kidney Disease: Estimated GFR < 15 mL/min/1.73m2 Glucose Random 150 60-115 mg/dL Calcium 8.9 8.4-10.2 mg/dL Creatine Kinase Total Reviewed date:08/01/2023 08:46:29 AM Interpretation: Performing Lab:[facility], [address] [place] [phone] Notes/Report: Creatine Kinase Total 84 38-174 U/L Troponin-I High Sensitivity Reviewed date:08/01/2023 08:42:41 AM Interpretation: Performing Lab:[facility], [address] [place] [phone] Notes/Report: Troponin-I High Sensitivity < 2.7 <3.5-35.0 ng/ L [place] high sensitivity Troponin-I results should be used in conjunction with other diagnostic information such as ECG, clinical observations and information, and patient symptoms to aid in the diagnosis of HI. INR WHOLE BLOOD POC Reviewed date:08/01/2023 08:42:21 AM Interpretation: Performing Lab:[facility], [address] [place] [phone] Notes/Report: PT, INR - Anti Coag Clinic 1.0 0.9-1.1 METER #: [id number] INTERNATIONAL NORMALIZED RATIO (INR) REFERENCE RANGES Reference [...] OC Reviewed date:08/01/2023 08:51:33 AM Interpretation: Performing Lab:[facility], [address] [place] [phone] Notes/Report: Prothrombin Time Whole Bld POC 12.3 11.1-13.5 sec Glucose, Whole Blood Reviewed date:08/01/2023 08:42:29 AM Interpretation: Performing Lab:[facility], [address] [place] [phone] Notes/Report: Glucose, Whole Blood 143 60-115 mg/dL METER # : [id number] CT head for stroke Reviewed date:08/01/2023 08:42:10 AM Interpretation: Performing Lab: Notes/Report: [address] [address] [address] Scan Report Signed Patient: Mark Rayo MR#: [id number] : 1950 Acct:[id number] Age/Sex: 73 / M ADM Date: 07/30/23 Loc: HO.ED Attending Dr: Ordering Physician: Ada Ruiz CNP Date of Service: 07/30/23 Procedure(s): CT head for stroke Accession Number(s): [id number] cc: Ada Ruiz CNP; Jose Greer MD [...] Crawford in OV> 07/30/231858 DD/ 49 TD/TT: Gold Reclaimer: Urine Culture Reviewed date:08/24/2023 12:45:06 PM Interpretation: Performing Lab:[facility], [address] [place] [phone] Notes/Report: Urine Culture No growth. Complete Blood Count Auto Di ff Reviewed date:08/23/2023 12:44:31 PM Interpretation: Performing Lab:[facility], [address] [place] [phone] Notes/Report: White Blood Count 4.7 4.8-10.8 X10*3/uL [...] NRBC Abs Auto 0.000 0.0-0.012 X10*3/uL Comprehensive [place]. Panel Fa st Reviewed date:08/23/2023 01:24:32 PM Interpretation: Performing Lab:[facility], [address] [place] [phone] Notes/Report: Sodium 142 135-145 mmol/L Potassium 4.1 3.3-5.1 mmol/L Chloride 107 96-108 mmol/L Carbon Dioxide 29 22-29 mmol/L Anion Gap 10 12-20 Blood Urea Nitrogen 21 9-16 mg/dL Creatinine 1.05 0.5-1.4 mg/dL Estimated Glomerular Filt Rate > 60 NOTE: For -Central African individuals, multiply the result by 1.210. Chronic [...] Panel Reviewed date:08/23/2023 12:46:04 PM Interpretation: Performing Lab:[address] [address] Notes/Report: Triglycerides 79 <150 mg/dL Desirable Triglyceride: [...] (Free>4and<10) Reviewed date:08/23/2023 12:49:03 PM Interpretation: Performing Lab:[address] [address] Notes/Report: PSA,Total (Free>4and<10) 3.19 0.00-4.00 ng/mL A [...] Random Reviewed date:08/23/2023 12:38:28 PM Interpretation: Performing Lab:[address] [phone] Notes/Report: Creatinine Urine 242.92 Microalbumin Urine 9.0 Microalbum/Creatinine Ratio Ur 3.7 <30 ug/mg cr Albumin/Creatinine Ratio Reference Ranges: Normal: < 30 ug/mg creatinine Microalbuminuria: 30 - 300 ug/mg creatinine Clinical Albuminuria: > 300 ug/mg creatinine Hemoglobin A1c Reviewed date:08/23/2023 12:37:27 PM Interpretation: Performing Lab:[address] [address] Notes/Report: Hemoglobin A1c % 5.8 <6.0 % [...] average glucose, using the formula of the N5A-Vnkavsc Average Glucose study (ADAG), Diabetes Care, Vol.31,#8, Dec. 2007 UA ClnCatch+Micro w/rflx Cul t Reviewed date:08/24/2023 12:47:12 PM Interpretation: Performing Lab:[address] [address] Notes/Report: [id number] Urine, Clean Catch Color Urine Yellow Appearance Urine Clear PH 5.5 5.0-9.0 Glucose Urine UA Negative Negative mg/dL Urine Blood Negative Negative Specific [place] - Urine 1.025 1.005-1.025 Urine Protein Negative [...] Pathology Reviewed date:09/13/2023 12:43:42 PM Interpretation: Performing Lab:[facility], [address] [place] [phone] Notes/Report: Blood Urea Nitrogen Reviewed date:03/02/2024 12:35:00 PM Interpretation: Performing Lab:[facility], [address] [place] [phone] Notes/Report: Blood Urea Nitrogen 16 9-16 mg/dL Creatinine Reviewed date:03/02/2024 12:30:45 PM Interpretation: Performing Lab:[facility], [address] [place] [phone] Notes/Report: Creatinine 0.98 0.5-1.4 mg/dL Estimated Glomerular Filt Rate > 60 NOTE: For -Central African individuals, multiply the result by 1.210. Chronic Kidney Disease: Estimated GFR < 60 mL/min/1.73m2 Severe Kidney Disease: Estimated GFR < 15 mL/min/1.73m2 PSA,Total (Free>4and<10) Reviewed date:03/02/2024 12:38:14 PM Interpretation: Performing Lab:[facility], [address] [place] [phone] Notes/Report: PSA,Total (Free>4and<10) 2.94 0.00-4.00 ng/mL A [...] date:03/14/2024 12:47:55 PM Interpretation: Performing Lab: Notes/Report: [place] [address] Magnetic Resonance Report Signed Patient: Mark Rayo MR#: [id number] : 1950 Acct:[id number] Age/Sex: 73 / M ADM Date: 03/14/24 Loc: HO.MRI Attending Dr: Arnie Mccormick MD Ordering Physician: Arnie Mccormick MD Date of Service: 03/14/24 Procedure(s): MR dove LT wo/w con Accession Number(s): [id number] cc: Jose Greer MD; Arnie Mccormick MD [...] by: Joe Shrestha MD 03/14/2024 12:33 PM [facility] Dictated By: Joe Shrestha MD Signed By: <Electronically signed by Joe Shrestha MD in OV> 03/14/24 1233 DD/ 1124 TD/TT: 03/14/24 1154 Gold Reclaimer: Pathology Reviewed date:04/27/2024 12:29:30 PM Interpretation: Performing Lab:[facility], [address] [place] [phone] Notes/Report: REASON FOR REFERRAL No Information MEDICATIONS Medication [...] 02/01/2013 Administered Flu Vaccine Unknown 03/06/2014 Administered [facility] PPSV23 (Pnemovax) IM Intramuscular 05/18/2014 Administered TDaP IM Intramuscular 06/05/2014 Administered Flu Vaccine IM Intramuscular 02/21/2015 Administered pt re cieved the high dose flu at [facility] in [place]. 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 46777454 Problem Degeneration of cervical intervertebral disc (M50.30) Active confirmed 81647137 Problem Pure hypercholesterolemia (E78.00) Active confirmed 670289719 Problem Increased prostate specific antigen (PSA) velocity (R97.20) Active confirmed 881964905 VITAL SIGNS Blood pressure diastolic 60 mm [...] Date Provider Diagnosis Jose Greer MD [address] [place] [phone] 08/31/2023 Jose Greer Rising PSA level R97 .20 ; Annual physical exam Z00.00 ; Elevated BUN R79.9 ; Essential tremor G25.0 ; 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 ; Prediabetes R73.09 ; Pure hypercholesterolemia E78.00 ; Colon cancer screening Z12.11 and Depression screening Z13.31 Jose Greer MD [address] [place] [phone] 08/23/2023 Jose Greer Blood tests for rout ine general physical examination Z00.00 ; Prediabetes R73.09 and Pure hypercholesterolemia E78.00 Jose Greer MD [address] [phone] 03/02/2024 Jose Greer Erectile dysfunction N52.9 ; Elevated BUN R79.9 and Rising PSA level R97.20 Jose Greer MD [address] [place] [id number] 03/09/2024 Jose Greer Elevated BUN R79.9 ; Rising PSA level R97.20 and Mass of left upper extremity R22.32 Jose Greer MD [address] [place] [phone] 08/02/2023 Jose Greer ASSESSMENTS Encounter Date Diagnosis [...] Provider Name:Jose Coates ier, 08/29/2024 07:30:00 AM, [address] [place] [address], [place] [address], [place], [place], [phone], Provider Name:Jose Coates ier, 09/05/2024 10:30:00 AM, [address] [place] [address], [address], [place], [place], [phone], Insurance Providers Payer Name Payer Address Payer Phone Subscriber Number Group Number Insured Name Patient Relationship to Insured Coverage Start Date Coverage End Date [employer] [place] [address] [id number] Mark Rayo Self - patient is the insured MEDICAL (GENERAL) HISTORY Medical History History ICD Code colonoscopy 10/2006 due in ; colonoscopy done 06/11/[address] Marcelino (repeat 5 yrs)09/10/23 colonoscopy repeat 3y 09/02/20 Colonoscopy completed, due 3 yrs 2023
--- OUTSIDE RECORDS SUMMARY | 2024-05-01 10:49 | XMS_ITS ---
Author Organization [facility] Address [address] [place] [address] Care Team Providers Care Transport Tech Name Role Phone Juan M Hernandez MD Primary Care Provider Un available Dae Marcelino Unavailable [phone] DONNELL Gonzalez Kasey Unavailable Unavailable REASON FOR VISIT Addendum Encounters Encounter Location Date Provider Diagnosis [facility] [address] [place] [address] 10/08/2023 Dae Marcelino PLAN OF TREATMENT No Information
--- OUTSIDE RECORDS SUMMARY | 2024-05-01 10:49 | XMS_ITS ---
Author Organization Jose Greer MD Address [address] [place] [phone] Care Team Providers Care Shoe Clerk Name Role Phone Jose Greer Primary Care [...] Notes Problem Essential tremor (G25.0) Active confirmed 227573239 VITAL SIGNS BMI 27.89 kg/m2 08/31/2023 Blood pressure systolic 132 mm Hg 08/31/19 24 Blood pressure diastolic 60 mm Hg 024 Height 71 in 08/31/2023 Weight 200 lbs 08/31/2023 Encounters Encounter Location Date Provider Diagnosis Jose Greer MD [address] [place], [place] [phone] 08/31/2023 Jose Greer Rising PSA level R97 [...] psa Provider Name:Jose cowan, 08/29/2024 07:30:00 AM, [address] [place] [address], [address], [phone], Provider Name:Jose cowan, 09/05/2024 10:30:00 AM, [address] [place] [address], [address] [place] [address], [phone], Progress Notes * Examination Category Sub-Category Detail [...]
--- OUTSIDE RECORDS SUMMARY | 2024-05-01 10:50 | XMS_ITS ---
Author Organization [facility] Address [address] [place] [phone] Care Team Providers Care Day Treatment Clinician/Art Therapist Name Role Phone Juan M Hernandez MD Primary Care Provider Un available Dae Marcelino Unavailable [phone] DONNELL Gonzalez Kasey Unavailable Unavailable REASON FOR VISIT refill scripts MEDICATIONS Medication SIG (Take, Route, Frequency, Duration) Notes Start Date End Date Status Mesalamine 1000 MG 1 suppository at bed time Rectal Every night at bedtime for 30 days 06/02/2022 Active Balsalazide Disodium 750 MG 3 capsules Orally Twice a day for 30 days Active Encounters Encounter Location Date Provider Diagnosis [facility] [address] [place] [phone] 10/05/2023 Dae Marcelino PLAN OF TREATMENT Medication Medication Name Sig Start Date Stop Date Notes Mesalamine 1000 MG 1 suppository at bed time Rectal Every night at bedtime for 30 days 06/02/2022 Balsalazide Disodium 750 MG 3 capsules O rally Twice a day for 30 days
--- OUTSIDE RECORDS SUMMARY | 2024-05-01 10:50 | XMS_ITS | Patient Health Record ---
Author Organization [facility] Address [address] [facility] [address] [place] [phone] Care Team Providers Care Customer Professional Name Role Phone Juan M Hernandez MD Primary Care Provider Un available Dae Marcelino Unavailable [phone] DONNELL Gonzalez Kasey Unavailable Unavailable ALLERGIES No Known Allergies RESULTS Component Value Reference Range Notes Pathology (Not yet reviewed by provider) Interpretation: Performing Lab:[facility], [address] [place] [phone] Notes/Report: REASON FOR REFERRAL Referring Provider First Name Juan M Referring Provider Last Name David Referring Provider Speciality Internal M edicine Referred Organization [facility] Referred Provider Dae Marcelino Referred Address [address] [place] [address],[address],[place], [place],[address], Referred Provider Specialty Gastroentero logy Referral Priority [...] Problem Colon cancer screening (Z12.11) Active confirmed 429757854 Problem Encounter for screening for malignant neoplasm of colon (Z12.11) Active confirmed 441786907 Problem History of adenomatous polyp of colon (Z86.010) Active confirmed 504498127 Problem Personal history of colonic polyps (Z86.010) Active confirmed History of polyp of colon (situation) (384344757) Problem Diverticulosis of large intestine without perforation or abscess without bleeding (K57.30) Active confirmed Diverticul ar disease of colon (275960485) Problem Encounter for screening for malignant neoplasm of rectum (Z12.12) Active confirmed Screening for malignant neoplasm of rectum (037100206) Problem History of colon polyps (Z86.010) Active confirmed 759258394 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 96998473 Problem Hx of adenomatous colonic polyps (Z86.010) Active confirmed 049025674 Encounters Encounter Location Date Provider Diagnosis [facility] Outpatient [address] [place] [phone] 09/10/2023 Dae Marcelino 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 ; Personal history of colonic polyps Z86.010 ; Diverticulosis of large intestine without perforation or abscess without bleeding K57.30 and Internal hemorrhoids K64.8 [facility] [address] [facility] [address] [place] [phone] 05/11/2023 Dae Marcelino Colon cancer screeni ng Z12.11 ; 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 and History of adenomatous polyp of colon Z86.010 [facility] [address] [place] [phone] 06/11/2023 Dae Marcelino [facility] [address] [place] [address] 07/14/2023 Dae Ryland [facility] [address] [place] [phone] 07/27/2023 Dae Marceilno [facility] [address] [place] [phone] 07/27/2023 Dae Marcelino [facility] [address] [place] [phone] 08/30/2023 Dae Marcelino [facility] [address] [place] [phone] 10/05/2023 Dae Marcelino [facility] [address] [place] [phone] 10/08/2023 Dae Marcelino ASSESSMENTS Encounter Date Diagnosis [...] Insured Coverage Start Date Coverage End Date [facility] [employer] [address] [place] [id number] NED BLISS Self - patient is the insured MEDICAL (GENERAL) HISTORY Medical History History ICD Code Ulcerative colitis-dx'd in 10/2006-[facility] ed the rectum and sigmoid colon Denies [place],DM,CVA,Lung disease,renal dise ase Herniated cervical spine disc [...]
--- OUTSIDE RECORDS SUMMARY | 2024-05-01 10:50 | XMS_ITS ---
Author Organization [facility] Address [address] [place] [address] Care Team Providers Care Wireless Field Technician Name Role Phone Juan M Hernandez MD Primary Care Provider Un available Dae Marcelino Unavailable [phone] DONNELL Gonzalez Kasey Unavailable Unavailable REASON FOR VISIT screening,hx polyps,ulcerative rectosigmoiditis PROBLEMS Problem Type ICD Code Onset Dates Problem Status W/U Status Risk SNOMED Code Notes Problem Personal history of colonic polyps (Z86.010) Active confirmed History of polyp of colon (situation) (047196239) Problem Diverticulosis of large intestine without perforation or abscess without bleeding (K57.30) Active confirmed Diverticul ar disease of colon (558722019) Encounters Encounter Location Date Provider Diagnosis [facility] [place] [address] [place] [phone] 09/10/2023 Dae Marcelino Ulcerative rectosigmoiditis without complication [...]
== END 2024-05-01 10:54 | disposition home or self-care (01) ==
PROVIDERS: PCP Internal Medicine; Visit Provider Surgery
DX: Z09 Encounter for follow-up examination after completed treatment for conditions other than malignant neoplasm (principal)
CPT/HCPCS: 99024

== ENCOUNTER → 2024-05-01 10:44 | Outpatient (BNVA) | payer OTHER, SELFPAY | PROVIDERS: PCP Internal Medicine; Visit Provider Surgery | DX: Z09 Encounter for follow-up examination after completed treatment for conditions other than malignant neoplasm (principal); Z87.2 Personal history of diseases of the skin and subcutaneous tissue; Z98.890 Other specified postprocedural states | CPT/HCPCS: 99212 ==

== ENCOUNTER 2024-10-17 09:49 | Outpatient (REF) | payer OTHER, SELFPAY ==
[2024-10-17 09:53] LABS: MANUAL DIFF FLAG NO
[2024-10-17 10:23] LABS: Basophils Percent Auto 0.5 % (0-2); Eosinophils Absolute Auto 0.1 X10*3/uL (0.0-0.4); Eosinophils Percent Auto 2.3 % (0-4); Hematocrit 43.6 % (42.0-52.0); Hemoglobin 14.8 g/dl (14.0-18.0); Lymphocytes Absolute Auto 1.3 X10*3/uL (1.2-4.9); Lymphocytes Percent Auto 33.1 % (20-40); Mean Corpuscular HGB Conc 33.9 g/dl (31.0-36.0); Mean Corpuscular Hemoglobin 31.1 pg (27.0-33.0); Mean Corpuscular Volume 91.6 fL (80.0-98.0); Mean Platelet Volume 10.5 fL (9.4-12.4); Monocytes Absolute Auto 0.5 X10*3/uL (0.1-1.2); Monocytes Percent Auto 12.8 % (2-11); Neutrophils Percent Auto 51.3 % (45-73); Platelet Count 280 X10*3/uL (160-400); Red Blood Count 4.76 X10*6/uL (4.60-5.80); Red Cell Distribution Width 12.8 % (11.0-16.0); White Blood Count 3.9 X10*3/uL (4.8-10.8)
[2024-10-17 10:26] LABS: Appearance Urine Clear; Color Urine Dark Yellow; Glucose Urine UA Negative (Negative); Leukocyte Esterase Urine Small (1+) (Negative); Nitrite Urine Negative (Negative); PH 5.5 (5.0-9.0); Specific Gravity - Urine >= 1.030 (1.005-1.025); UMIC TRIGGER UACC YES; Urine Blood Negative (Negative); Urine Ketones Trace mg/dL (Negative); Urine Protein Trace mg/dL (Neg-Trace)
[2024-10-17 10:31] LABS: Bacteria Urine None Seen (None Seen); Hyaline Casts Urine 0-2 /LPF (0-2); RBC Urine 0-2 /HPF (0-2); Squamous Epithelial Cell Urine 0-2 /HPF (0-2); UACC Culture Trigger YES
[2024-10-17 10:36] LABS: Estimated Average Glucose 114 mg/dL; Hemoglobin A1C 144.7644 umol/L; Hemoglobin A1c % 5.6 % (<6.0); Total Hemoglobin (HGBA1C) 3807.5714 umol/L
[2024-10-17 10:39] LABS: Alanine Aminotransferase 21 U/L (0-40); Albumin Level 4.7 g/dL (3.5-5.0); Alkaline Phosphatase 49 U/L (39-117); Anion Gap 9 (12-20); Aspartate Amino Transferase 28 U/L (5-37); Bilirubin Total 0.7 mg/dL (0.0-1.0); Blood Urea Nitrogen 22 mg/dL (9-16); Calcium 9.5 mg/dL (8.4-10.2); Carbon Dioxide 29 mmol/L (22-29); Chloride 108 mmol/L (96-108); Cholesterol 178 mg/dL (<200); Estimated Glomerular Filt Rate > 60; Glucose Fasting 92 mg/dL (60-99); HDL Cholesterol 42 mg/dL (>40); LDL Cholesterol Calculated 119 mg/dL (<100); Potassium 4.1 mmol/L (3.3-5.1); Sodium 142 mmol/L (135-145); Triglycerides 85 mg/dL (<150)
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
[2024-10-17 10:58] LABS: PSA,Total (Free>4and<10) 4.19 ng/mL (0.00-4.00)
[2024-10-17 11:12] LABS: Creatinine Urine 336.81 mg/dL; Microalbum/Creatinine Ratio Ur 5.3 ug/mg cr (<30)
[2024-10-18 13:09] LABS: Percent Free Prostate Spec Ag 29 % (calc) (>25); Prostate Specific Ag Total 3.5 ng/mL (< OR = 4.0)
== END 2024-10-17 09:50 | disposition home or self-care (01) ==
LOC: HO.LNP 09:49
PROVIDERS: Visit Provider Internal Medicine
DX: Z00.00 Encounter for general adult medical examination without abnormal findings (principal); R73.03 Prediabetes; Z12.5 Encounter for screening for malignant neoplasm of prostate; E78.00 Pure hypercholesterolemia, unspecified; R97.20 Elevated prostate specific antigen [PSA]
CPT/HCPCS: 80053; 80061; 81001; 82043; 82570; 83036; 84153; 84154; 85025; 87086

== ENCOUNTER 2024-11-23 10:34 | Outpatient (REF) | payer OTHER, SELFPAY ==
--- OUTSIDE RECORDS SUMMARY | 2023-09-10 03:30 | XMS_ITS ---
Author Organization [facility] Address [address] [place] [address] Care Team Providers Care Reversing Mill Roller Name Role Phone Juan M Hernandez MD Primary Care Provider Un available Dae Mracelino Unavailable [phone] DONNELL Gonzalez Kasey Unavailable Unavailable REASON FOR VISIT screening,hx polyps,ulcerative rectosigmoiditis Problems Problem Type SNOMED Code ICD Code Onset Dates Problem Status W/U Status Risk Notes Problem History of polyp of colon (situation) (483183067) Personal history of colonic polyps (Z86.010) Active confirmed Problem Diverticular disease of colon (390618052) Diverticulosis of large intestine without perforation or abscess without bleeding (K57.30) Active confirmed Encounters Encounter Location Date Provider Diagnosis [facility] [place] [address] [place] [id number] 09/10/2023 Dae Marcelino 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 ; Personal history of colonic polyps Z86.010 ; Diverticulosis of large intestine without perforation or abscess without bleeding K57.30 and Internal hemorrhoids K64.8 Assessments Encounter Date Diagnosis (ICD Code) Assessment Notes Treatment Notes Treatment Clinical Notes Section Notes 09/10/2023 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 Screening,hx polyps,ulcerative rectosigmoiditis. * Medical History: Objective: * Vitals: Assessment: * Assessment: 1. 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 D iverticulosis of large intestine without perforation or abscess without bleeding - K57.30 4 . I nternal hemorrhoids - K64.8 Plan: * Treatment: * Procedure Codes: 4 5380 COLONOSCOPY AND BIOPSY * Preventive Medicine: ASH Screening: C olonoscopy W as interval between colonoscopies three years or more? Y es, W as last colonoscopy performed three or more years ago? Y es. * * The named appointment provid er may or may not be the originator of this progress note, and it is not deemed complete until electronically signed by the appointment provider. Sign off status: Pending * Provider: Amalia Marcelino MD Date: 0 09/10/2023 Generated for Marly hobbs/Penny/Aaronitting on: 0 11/23/2024 11:26 AM EDT
--- OUTSIDE RECORDS SUMMARY | 2024-04-17 09:00 | XMS_ITS | Encounter Summary ---
Author Name [facility] [place] [facility] [place] [facility] [place] Address [address] [place] [id number] Care Team Providers Care Banjo Repair Person Name Role Phone LINDA PALOMINO Primary Care [...] PRESCRIPT ION [facility] May 03, 2018 [id number] Tracey BLISS PATIENT [facility] Jul 01, 2013 [id number] [facility]/NALC PREFERRED PROVIDER ORGANIZAT ION (PPO) [facility]* * May 03, 2024 [id number] [phone] Tracey BLISS PATIENT [employer]IG[employer]/NALC PREFERRED PROVIDER ORGANIZAT ION (PPO) [facility] Jul 01, 2013 32 [id number] [phone] [facility] [employer]NALC PREFERRED PROVIDER ORGANIZAT ION (PPO) [facility] Jan 01, 2011 [id number] [phone] Tracey BLISS PATIENT [employer]IG[employer]/NALC PREFERRED PROVIDER ORGANIZAT ION (PPO) [facility] BENEF IT Jan 01, 2011 [id number] [phone] Tracey BLISS PATIENT MEDICARE (WNR) MEDICARE (M) PART A Jul 01, 2013 PART A [id number] Tracey BLISS PATIENT MEDICARE (WNR) MEDICARE (M) PART A Jul 01, 2013 PART A [id number] Tracey BLISS PATIENT MEDICARE (WNR) MEDICARE (M) PART B Jul 01, 2013 PART B [id number] [phone] Tracey BLISS PATIENT [facility] (MED PRIME) PREFERRED PROVIDER ORGANIZAT ION (PPO) [facility] Jul 01, 2013 [id number] Tracey BLISS PATIENT [facility] (MED PRIME) PREFERRED PROVIDER ORGANIZAT ION (PPO) [facility] Jul 01, 2013 32 [id number] Tracey BLISS PATIENT [facility] -MCR A ONLY Jul 01, 2013 [id number] Tracey BLISS PATIENT [facility]* Jan 01, 2011 [id number] Tracey BLISS PATIENT Selected Encounter This section includes the information on record at [place] for the Encounter. Date/Time Encounter Type Encounter Description Reason Provider Source Apr 17, 2024 01:00 PM COMPRE OPH EXAM EST PT 1/> OPTOMETRY ICD-10-CM H40.013 Open angle with borderline findings, low risk, bilateral MENDY REDDING [place] Encounter Template Text not used by [place] Assessments - Encounter Diagnoses This section includes the primary and secondary diagnoses documented for the Encounter. Date/Time Primary/Secondary Diagnosis Diagnosis Name Provider Source May 15, 2024 06:59 AM PRIMARY Open angle with borderline findings, low risk, bilateral MENDY REDDING [place] [facility] [place] [facility] May 15, 2024 06:59 AM SECONDARY Combined forms of age-related cataract, bilateral MENDY REDDING [place] [facility] [place] [facility] May 15, 2024 06:59 AM SECONDARY Unspecified disorder of refraction JANNYMENDY HEARD [place] [facility] [place] [facility] Plan of Treatment: Future Appointments (+ [...] 20 appointments. The data comes from all [place] treatment facilities. Appointment Date/Time Appointment Type Appointme nt Facility Name May 16, 2024 10:00 AM AMBULATORY - PS[facility]CHIATRY [facility] [place] [facility] May 16, 2024 11:30 AM AMBULATORY - MEDICINE [facility] [place] [facility] May 24, 2024 10:30 AM AMBULATORY - MEDICINE [facility] [place] [facility] May 30, 2024 10:00 AM AMBULATORY - PS[facility]IATRY [facility] [place] [facility] Jun 08, 2024 10:45 AM AMBULATORY - MEDICINE [facility] [place] [facility] Jun 13, 2024 10:00 AM AMBULATORY - PS[facility]CHIATRY [facility] [place] [facility] Jun 27, 2024 10:00 AM AMBULATORY - PS[facility]CHIATRY [facility] [place] [facility] Jul 18, 2024 10:00 AM AMBULATORY - PS[facility]CHIATRY [facility] [place] [facility] Jul 24, 2024 10:30 AM AMBULATORY - PS[facility]CHIATRY [facility] [place] [facility] Aug 01, 2024 10:00 AM AMBULATORY - PS[facility]CHIATRY [facility] [place] [facility] Aug 15, 2024 10:00 AM AMBULATORY - PS[facility]CHIATRY [facility] [place] [facility] September 12, 2024 10:00 AM AMBULATORY - PS[facility]CHIATRY [facility] [place] [facility] September 26, 2024 10:00 AM AMBULATORY - PS[facility]IATRY [facility] [place] [facility] Oct 10, 2024 10:00 AM [facility] [place] [facility] Social History: Smoking Status (Most current) and Tobacco Use (All prior to encounter date) This section includes the most current, and the historical, smoking and tobacco- related health factors from the [place] facility where the Encounter took place. Current Smoking Status This section includes the most current smoking, or tobacco-related health factor, from the [place] facility where the Encounter took place. Date/Time Current Smoking Status Comment Facil ity Aug 04, 2023 09:00 AM VA-TOBACCO [facility]ER [facility] [place] [facility] Tobacco Use History This section includes a history of the smoking, or tobacco-related health factors, that were collected on or before the date of the Encounter. The data comes from the [place] facility where the Encounter took place. Date/Time Smoking Status/Tobacco Use Comment F acba Aug 04, 2023 09:00 AM VA-TOBACCO QUIT 15 YRS OR MORE [place] [facility] [place] [facility] Aug 05, 2022 11:30 AM VA-TOBACCO NEVER USED [place] [facility] [place] [facility] Aug 22, 2021 11:30 AM VA-TOBACCO NEVER USED [place] [facility] [place] [facility] Apr 29, 2020 10:30 AM VA-TOBACCO NEVER USED [place] [facility] [place] [facility] September 21, 2018 09:39 AM VA-TOBACCO FORMER USER [place] [facility] [place] [facility] September 21, 2018 09:39 AM VA-TOBACCO QUIT 15 YRS OR MORE [facility] [place] [facility] Dec [...] [facility] [place] [facility] Nov 15, 2014 10:48 AM QUIT TOBACCO USE > 7 YEARS AGO quit 1975 [place] [facility] [place] [facility] Advance Directives: All historical and current Section Date Range: From patient's date of to the date document was created. This section includes ALL of a patient's completed or amended [place] Advance and Rescinded Directives. The entries below indicate that a directive exists for the patient, but an actual copy is not included with this document. The data comes from all [place] facilities. Date Advance Directives Provider Source Jan 01, 2005 ADVANCE DIRECTIVE [facility] Encounter Notes: All associated encounter notes This section contains the clinical notes associated to the Encounter. Date/Time Encounter Note(s) Provider Source Apr 17, 2024 02:15 PM OPTOMETRY NOTE: LOCAL TITLE: OPTOMETRY NOTE(T) STANDARD TITLE: OPTOMETRY NOTE DATE OF NOTE: APR 17, 2024@14:15 ENTRY DATE: APR 17, 2024@14:15:31 AUTHOR: MENDY REDDING EXP COSIGNER: URGENCY: STATUS: COMPLETED I saw this patient in conjunction with the student and agree to the stated findings and plan after reviewing both history and repeating faria elements of physical exam. Patient presents for annual follow-up well-known to me with history of larger asymmetric cupping so therefore low risk open-angle glaucoma suspect, combined cataracts not visually significant and refraction disorder. Otherwise no other acute ocular disease was seen today. Pupils were not dilated due to patient's being 20 minutes late for appointment. Ordered PAL. Patient will return in 1 month for glaucoma imaging. 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 Lipoma of skin and subcutaneous tissue (excluding face) 2. Exposure to potentially hazardous substance ([facility] [id number]) 3. Holland's palsy 4. Allergic Rhinitis ([facility] [id number]) 5. Basal cell carcinoma of skin 6. Hyperlipidemia ([facility] [id number]) 7. Anxiety 8. Hemorrhoid 9. Under care of multiple providers 10. History of surgery 11. Ulcerative colitis 12. Posttraumatic stress disorder 13. Chronic sinusitis 14. Neck pain 15. Tinnitus Active Outpatient Medications (including Supplies): Active Outpatient Medications Status = 1) ALBUTEROL 90MCG (CFC-F) 200D ORAL INHL INHALE 2 PUFFS BY ACTIVE MOUTH EVERY 4 HOURS NEEDED Indication: FOR BRONCHOSPASM 2) BALSALAZIDE DISODIUM 750MG CAP TAKE THREE CAPSULES BY MOUTH ACTIVE TWICE DAILY 3) BUPROPION 150MG 24HR XL TAB (ONCE DAILY) TAKE ONE TABLET BY ACTIVE MOUTH EVERY MORNING *FOR MOOD Indication: FOR DEPRESSION 4) CARBAMIDE PEROXIDE 6.5% OTIC SOLN INSTILL 5 TO 10 DROPS INTO ACTIVE THE AFFECTED EAR(S) ONCE DAILY NEEDED Indication: FOR EAR WAX BLOCKAGE 5) FLUTICASONE PROP 50MCG 120D NASAL INHL INSTILL 1 SPRAY INTO ACTIVE EACH NOSTRIL ONCE DAILY Indication: FOR NASAL IRRITATION/INFLAMMATION 6) LORAZEPAM 0.5MG TAB TAKE ONE TABLET BY MOUTH ONCE DAILY ACTIVE NEEDED . CAUTION SEDATION.. DO NOT DRIVE OR OPERATE MACHINERY. NO ALCOHOL AND DON'T TAKE IF TAKING CARISOPRODOL OR TRAMADOL. Indication: FOR ANXIETY 7) MESALAMINE 1000MG RTL SUPP INSERT 1 SUPPOSITORY(IES) ACTIVE RECTALLY AT BEDTIME 8) PHENYLEPHRINE HCL 0.25% RTL SUPP INSERT 1 SUPPOSITORY(IES) ACTIVE RECTALLY ONCE DAILY NEEDED Indication: FOR INFLAMMATION OF THE RECTUM 9) SODIUM FLUORIDE 1.1% TOOTHPASTE BRUSH SMALL AMOUNT TO TEETH ACTIVE TWICE DAILY Indication: FOR TOOTH DECAY PREVENTION Active Non-VA Medications Status = 1) Non-VA ACETAMINOPHEN 500MG TAB 500MG BY MOUTH NEEDED ACTIVE 2) Non-VA CARISOPRODOL 350MG TAB 350MG BY MOUTH ONCE DAILY ACTIVE NEEDED 3) Non-VA DICLOFENAC NA 75MG EC TAB 75MG BY MOUTH TWICE DAILY ACTIVE Indication: FOR PAIN AND INFLAMMATION 4) Non-VA MULTIVITAMIN/MINERALS CAP/TAB 1 TABLET BY MOUTH EVERY ACTIVE DAY 5) Non-VA OTHER CAP/TAB PREPARATION H SUPPOSITORIES BY MOUTH ACTIVE NEEDED 14 Total Medications Allergies: Patient has answered NKA All medications including those prescribed by outside VA's, community providers, and all OTC meds were reviewed and reconciled with patient to the best of their abilities. This 73 year old MALE is seen today for annual CEE LILIAN: 04/07/23 Chief Complaint: Blurry vision comes in goes with glasses readjustment OHx: 1. Low risk POAG suspect OU 2. Combined cataracts OU 3. RE and presbyopia Ocular Medications: Nones (-) Pain: (-) TABOR: (-) Diplopia: (-) Flashes: (+) Floaters: Longstanding (-) Amaurosis Fugax/Tia's: (-) Eye Injury: (-) Eye Surgery: (-) TBI FOHx: (-) Blindness (+) ARMD/Glaucoma: father VITALS (most recent, as listed in the electronic record): B/P: 171/92 (02/11/2024 10:36) Pulse: 64 (02/11/2024 10:36) Temperature: Unavailable (02/11/2024 10:36) Weight: Unavailable (02/11/2024 10:36) Height: Unavailable (02/11/2024 10:36) BMI: BMI: PERTINENT LABS: HEMOGLOBIN A1C TREND Collection DT Spec HGBA1c 07/01/2023 08:52 BLOOD 5.6 08/05/2022 12:20 BLOOD 5.0 (-) Smoker/Length of Time/PPD: Current Rx with last BCVA: OD: +2.75-1.25 x086 20/20 OS: +2.25-1.25 x090 20/20 Add:+2.50 DVA ( )sc ( x )cc - phoropter OD: 20/20 OS: 20/20 slow Pupils: PERRL (-)APD EOMs: SAFE OU, (-)Pain/Diplopia CVF (facial, peripheral): FTFC OU Subjective Refraction: OD: +2.75-1.25 x086 20/20 OS: +2.50-1.25 x090 20/20 Add:+2.50 Final SRx OD: +2.75-1.25 x086 OS: +2.50-1.25 x090 Add:+2.50 All the above performed by student, reviewed by attending Anterior segment: Performed by student, repeated by attending Lids: Trc Blepharitis OU Conj: white and quiet OU Cornea: clear (-)k spindle OU AC: D&Q OU Angles: 4x4 OU Iris: flat and clear (-)NVI/TID OU Lens: Limited undilated view 1+ NSC and trc ACC OU (-)PXF OU Tonometry: Performed by student, reviewed by attending [x ] GAT [ ] iCare OD 19 mmHg OS 18 mmHg Time:13:37 Last IOP OD: 17 OS: 17 Pachymetry: OD: 537 OS: 536 Deferred dilation at this exam Fundus exam: Dilated: Non dilated: xxxxx Performed by student, repeated by attending Vit: PVD OU C/D: 0.70 OD and 0.65 OS pink & healthy rim tissue,(-)Drance heme (-)NVD OU Macula: Trc ERM OS PPole: clear OU A/V: 2/3 Vessels: normal caliber OU Periph: Limited undilated view OU Assessment/Plan: 1. Low risk open-angle glaucoma suspect OU. Moderate cupping with thinner than average CCT. No evidence of pigment dispersion or pseudoexfoliation OU. (+) family history of glaucoma. No change in ONH appearance. Low index of suspicion at present. - IOP today: 18/19mmHg - Pachymetry: 537/536um - Pt ed re today's findings - Pt ed re glaucoma as well as the natural history of this diagnosis including prognosis. - Stress importance of continued follow-up appointments - RTC 1mo with HVF 24-2 and RNFL OCT 2. Combined Form Cataracts OU - Pt. ed. on findings - cataracts are not visually significant and that surgery is not necessary at this time - Ed. on importance of UV protection and on symptoms of glare - Continue to monitor 3. Myopia, Hyperopia, Regular astigmatism and presbyopia OU - Pt. ed. on todays findings - Ordering duplicate frames for PALs - Monitor Return to Clinic or earlier PRN [place] Education: After discussion and answering all 's questions, [place] demonstrated and verbalized understanding of diagnosis and treatment. Yes [x] No [ ] Patient Education: Glaucoma: Patient was educated regarding glaucoma/glaucoma suspect as well as the natural history of this diagnosis including prognosis. Stress importance of compliance and persistency with glaucoma medication when prescribed, timely follow up as well as the role of ancillary testing. Exclusion criteria for ancillary testing include significantly reduced acuity, mental status changes affecting the patient's ability to attend to the test or other physical limitations that would prohibit the patient's ability to participate in testing. Medication Reconciliation: Outpatient: Has the patient been [...] with a VA or non-VA provider. 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
[2024-11-23 10:37] LABS: MANUAL DIFF FLAG NO
[2024-11-23 11:14] LABS: Hematocrit 41.2 % (42.0-52.0); Hemoglobin 13.4 g/dl (14.0-18.0); Imm Gran Abs Auto 0.01 X10*3/uL (0.00-0.03); Imm Gran Pct Auto 0.2 % (0.0-0.4); Lymphocytes Absolute Auto 1.5 X10*3/uL (1.2-4.9); Mean Corpuscular HGB Conc 32.5 g/dl (31.0-36.0); Mean Corpuscular Hemoglobin 30.2 pg (27.0-33.0); Mean Corpuscular Volume 93.0 fL (80.0-98.0); NRBC Abs Auto 0.000 X10*3/uL (0.0-0.012); NRBC Pct Auto 0.0 /100WBC (0.0-0.2); Platelet Count 240 X10*3/uL (160-400); Red Blood Count 4.43 X10*6/uL (4.60-5.80); White Blood Count 5.1 X10*3/uL (4.8-10.8)
--- OUTSIDE RECORDS SUMMARY | 2024-11-23 11:27 | XMS_ITS | Patient Health Record ---
Author Organization Jose Greer MD Address [address] [place], [place] [phone] Care Team Providers Care Layout Inspector Name Role Phone Jose Greer Primary Care Provider Allergies No Known Allergies Results Component Value Reference Range Notes Blood Urea Nitrogen Reviewed date:03/02/2024 12:35:00 PM Interpretation: Performing Lab:[address] [phone] Notes/Report: Blood Urea Nitrogen 16 9-16 mg/dL Creatinine Reviewed date:03/02/2024 12:30:45 PM Interpretation: Performing Lab:[facility], [address] [place] [phone] Notes/Report: Creatinine 0.98 0.5-1.4 mg/dL Estimated Glomerular Filt Rate > 60 NOTE: For -Dominican individuals, multiply the result by 1.210. Chronic Kidney Disease: Estimated GFR < 60 mL/min/1.73m2 Severe Kidney Disease: Estimated GFR < 15 mL/min/1.73m2 PSA,Total (Free>4and<10) Reviewed date:03/02/2024 12:38:14 PM Interpretation: Performing Lab:[facility], [address] [place] [phone] Notes/Report: PSA,Total (Free>4and<10) 2.94 0.00-4.00 ng/mL A [...] Coats Alinity i Chemiluminescent Microparticle Immunoassay (CMIA) Complete Blood Count Auto Di ff Reviewed date:10/17/2024 05:08:00 PM Interpretation: Performing Lab:[facility], [address] [place] [phone] Notes/Report: White Blood Count 3.9 4.8-10.8 X10*3/uL [...] NRBC Abs Auto 0.000 0.0-0.012 X10*3/uL Comprehensive [place]. Panel Fa st Reviewed date:10/17/2024 05:09:10 PM Interpretation: Performing Lab:[address] [phone] Notes/Report: Sodium 142 135-145 mmol/L Potassium 4.1 [...] Panel Reviewed date:10/17/2024 12:28:39 PM Interpretation: Performing Lab:[address] [phone] Notes/Report: Triglycerides 85 <150 mg/dL Desirable Triglyceride: [...] (Free>4and<10) Reviewed date:10/24/2024 12:21:50 PM Interpretation:10-24-2024 Performing Lab:[facility], [address] [place] [phone] Notes/Report: PSA,Total (Free>4and<10) 4.19 0.00-4.00 ng/mL PSA methodology: Coats Alinity i Chemiluminescent Microparticle Immunoassay (CMIA) Microalbumin, Random Reviewed date:10/17/2024 12:40:16 PM Interpretation: Performing Lab:[facility], [address] [place] [phone] Notes/Report: Creatinine Urine 336.81 Microalbumin Urine 18.0 Microalbum/Creatinine Ratio Ur 5.3 <30 ug/mg cr Albumin/Creatinine Ratio Reference Ranges: Normal: < 30 ug/mg creatinine Microalbuminuria: 30 - 300 ug/mg creatinine Clinical Albuminuria: > 300 ug/mg creatinine Hemoglobin A1c Reviewed date:10/17/2024 12:23:51 PM Interpretation: Performing Lab:[facility], [address] [place] [phone] Notes/Report: Hemoglobin A1c % 5.6 <6.0 % [...] average glucose, using the formula of the Z3E-Puisivt Average Glucose study (ADAG), Diabetes Care, Vol.31,#8, 2007 UA ClnCatch+Micro w/rflx Cul t Reviewed date:10/17/2024 05:08:35 PM Interpretation: Performing Lab:[facility], [address] [place] [phone] Notes/Report: Urine, Clean Catch Color Urine Dark Yellow Appearance Urine Clear PH 5.5 5.0-9.0 Glucose Urine UA Negative Negative mg/dL Urine Blood Negative Negative Specific [place] - Urine >= 1.030 1.005-1.025 Urine Protein Trace Neg-Trace mg/dL Urine Ketones Trace Negative mg/dL Nitrite Urine Negative Negative Leukocyte Esterase Urine Small (1+) Negative RBC Urine 0-2 0-2 /HPF WBC Urine 11-20 0-5 /HPF Squamous Epithelial Cell Urine 0-2 0-2 /HPF Bacteria Urine None Seen None Seen Hyaline Casts Urine 0-2 0-2 /LPF Complete Blood Count Auto Di ff (Not yet reviewed by provider) Interpretation: Performing Lab:[facility], [address] [place] [phone] Notes/Report: White Blood Count 5.1 4.8-10.8 X10*3/uL [...] X10*3/uL NRBC Abs Auto 0.000 0.0-0.012 X10*3/uL MR humerus LT wo/w con Reviewed date:03/14/2024 12:47:55 PM Interpretation: Performing Lab: Notes/Report: [address] [address] Magnetic Resonance Report Signed Patient: Mark Rayo MR#: [id number] : 1950 Acct:[id number] Age/Sex: 73 / M ADM Date: 03/14/24 Loc: HO.MRI Attending Dr: Arnie Mccormick MD Ordering Physician: Arnie Mccormick MD Date of Service: 03/14/24 Procedure(s): MR humerus LT wo/w con Accession Number(s): [id number] cc: Jose Greer MD; Arnie Mccormick MD [...] by: Joe Shrestha MD 03/14/2024 12:33 PM [facility] Dictated By: Joe Shrestha MD Signed By: <Electronically signed by Joe Shrestha MD in OV> 03/14/24 1233 DD/ 1124 TD/TT: 03/14/24 1154 Database Admin: [place] [address] Magnetic Resonance Report Signed Patient: Mark Rayo MR#: [id number] : 1950 Acct:[id number] Age/Sex: 73 / M ADM Date: 03/14/24 Loc: HO.MRI Attending Dr: Devi Vallejo MD Ordering Physician: Arnie Mccormick MD Date of Service: 03/14/24 Procedure(s): MR humerus LT wo/w con Accession Number(s): [id number] cc: Jose Greer MD; Arnie Mccormick MD EXAMINATION: MR HUMERUS WITHOUT A ND WITH CONTRAST, LEFT CLINICAL INFORMATION: Palpable lump in the region of the left triceps. No recent injury. COMPARISON: None available. TECHNIQUE: MRI of the left humerus was performed before and after the intravenous administration of 9 mL of Gadavist on a high-field scanner. FINDINGS: BONE: No marrow ivet a or evidence of acute osseous injury. No fracture or dislocation. No concerning lytic or blastic osseous lesion. No postcontrast marrow enhancement. MUSCLES/TENDONS: Raj ng the posterior aspect of the humerus within the undersurface of the triceps muscle belly, there is an encapsulated, fat signal lesion measuring approximately 2.4 x 3.7 x 6.3 cm, consistent with an intramuscula r lipoma. No soft tissue component or postcontrast enhancement to sugge st a more aggressive lesion. The remaining visualized muscles a nd tendons are otherwise intact. No edema or enhancement to sugge st acute injury. SOFT TISSUES: No additional soft tissue mass or fluid collection. Partially visualized , simple-appearing left renal cyst. Findings are not clinically significant and no dedicated followup imaging is recommended. MR/MR humerus LT wo/w con IMPRESSION: 1. 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 No soft tissue component or postcontrast enhancement to suggest a more aggressive lesion. 2. No acute osseous abnormality. Electronically talib d by: Joe Shrestha MD 03/14/2024 12:33 PM [facility] Dictated By: Joe Shrestha MD Signed By: <Electronically signed by Joe Shrestha MD in OV> 03/14/24 1233 DD/ 1124 TD/TT: 03/14/24 1154 Database Admin: Pathology Reviewed date:05/09/2024 12:54:15 PM Interpretation: Performing Lab:[facility], [address] [place] [phone] Notes/Report: -- ---- Name: Mark Rayo Age/Sex: 73/M : 1950 Unit#: [id number] Attend Dr: Arnie Mccormick MD Re04/21/24 Statu s: [facility] Location: [facility] Disch: -- ---- SPEC : [id number] RECD : 04/21/24759 STATUS: MAYE MORE NUM: [id number] DARIA: 04/21/24-[address]: Arnie Mccormick MD ENTERED: 04/21/24 02 SP TYPE: Surgical OTHR DR: Jose Greer MD ORDERED: Gross Micro L3 COMMENTS: Block A2 sent to [employer] for MDMS by FISH on 04/27/24. Addendum Addendum 1 Entered: 05/08/24 MDM2 FISH analysis (ibeatyou): Results: Negative Interpretation: MDM2 signals/nucleus : 1.9 CEN12 signals/nucleu s: 1.9 MDM2/CEN12 signal ratio: 1.0 Number of observers: 1 The MDM2 to CEN12 ratio of <2.0 is a normal result. See entire report in the EMR ? reports/pathology section as a scanned report (camera icon). There is no evidence of atypical lipomatous tumor. Addendum Signed (signature on file) Ana Kilkenny 05/08/241835 -- ---- Diagnosis Soft tissue, left tricep intramuscular, excision: Mature lobular adipose tissue with skeletal muscle, consistent with intramuscular lipoma (see comment). Comment: As the lesi on is deep/intramuscular, MDM2 testing is pending; report to follow. Clinical History Benign lipomatous neoplasm Microscopic Description Microscopic sections reviewed. CONTINUED ON NEXT PAGE -- ---- Name: Mark Rayo Age/Sex: 73/M : 1950 [id number]#: [id number] Attend Dr: Arnie Mccormick MD Re04/21/24 Status : [facility] Location: [facility] Disch: -- ---- SPEC : [id number] RECD : 04/21/24 STATUS: MAYE MORE NUM: [id number] DARIA: 04/21/241245 [facility] DR: Arnie Mccormick MD ENTERED: 04/21/24 TYPE: Surgical OTHR DR: Jose Greer MD ORDERED: Gross Micro L3 COMMENTS: Block A2 sent to [facility] for MDMS by FISH on 04/27/24. Material Received Left tricep intramuscular lipoma Gross Description Received in formalin labeled ?left triceps intramuscular lipoma? is a 6.0 x 4.0 x 2.0 cm multilobular portion of adipose tissue with scant attached khan-pink fibromuscular tissue. The margins are inke d and the specimen is serially sectioned to reveal predominantly homogeneous clark-yellow lobular fat with scant attached khan-pink fibromuscular tissue. No fleshy, hemorrhagic or necrotic foci are identified. Gamma Ray Operator sections are submitted in cassettes A1-A3. CEDS Copies To: Jose Greer MD [facility] [address] [facility] [address] [place], [place] [phone] Arnie Mccormick MD [facility] [address] [place] [address] [email or web address] -- ---- Signed (signature on file) Ana Corin 04/27/24 1126 -- ---- END OF REPORT PSA Free and Total Reviewed date:10/18/2024 07:29:23 PM Interpretation: Performing Lab:[facility], [address] [place] [phone] Notes/Report: Prostate Specific Ag Total 3.5 < OR = 4.0 ng/mL Percent Free Prostate Spec Ag 29 >25 % (calc) PSA(ng/mL) Free PSA(%) Estimated(x) Probability of Cancer(as%) 0-2.5 (*) Approx. 1 2.6-4.0(1) 0-27(2) 24(3) 4.1-10(4) 0-10 56 11-15 28 16-20 20 21-25 16 >or =26 8 >10(+) N/A >50 References:(1)Ayana a et al.:Urology 60: 469-474 (2002) (2)Otf et al.:J.Urol 168: 922-925 (2002) Free PSA(%) Sensitivity(%) Specificity(%) < or = 25 85 19 < or = 30 93 9 (3)Otf et al.:JANIE 277: 6344-6300 (1996) (4)Yamilkaona et al.:JANIE 279: 9419-0554 (1997) (x)These estimates vary with age, ethnicity, family history and VIC results. (*)The diagnostic usefulness of % Free PSA has not been established in patients with total PSA below 2.6 ng/mL (+)In men with PSA above 10 ng/mL, prostate cancer risk is determined by total PSA alone. The Total PSA value from this assay system is standardized against the equimolar PSA standard. The test result will be approximately 20% higher when compared to the WHO-standardized Total PSA (Siemens assay). Comparison of serial PSA results should be interpreted with this fact in mind. PSA was performed using the Aniya Akshat Immunoassay method. Values obtained from different assay methods cannot be used interchangeably. PSA levels, regardless of value, should not be interpreted as absolute evidence of the presence or absence of disease. THIS TEST WAS PERFORMED AT: [facility] [address] [place] [phone] HONORIO MORSE MD Free Prostate Spec Ag 1.0 Urine Culture Reviewed date:10/18/2024 07:35:13 PM Interpretation: Performing Lab:[facility], [address] [place] [phone] Notes/Report: Urine Culture Report Result Urine Culture < 10,000 cfu/ml Reason For Referral No Information Medications Medication SIG (Take, Route, Frequency, Duration) [...] as needed Orally Once a day Active Soma 250 MG 1 tablet as needed Orally PRN Not-Taking Diclofenac 35 MG 1 capsule as needed Orally Three times a day Active Immunizations Vaccine Route Administration Date Status Comme nts Flu Vaccine IM Intramuscular 02/02/2011 Administered Flu Vaccine IM Intramuscular 03/07/2012 Administered Flu Vaccine Unknown 02/01/2013 Administered Flu Vaccine Unknown 03/06/2014 Administered [facility] PPSV23 (Pnemovax) IM Intramuscular 05/18/2014 Administered TDaP IM Intramuscular 06/05/2014 Administered Flu Vaccine IM Intramuscular 02/21/2015 Administered pt re cieved the high dose flu at [facility] in [place]. Flu Vaccine IM Intramuscular 02/20/2016 Administered [facility] Fluarix Quadrivalent Unknown 02/10/2016 Administered [facility] Prevnar 13 IM Intramuscular 06/25/2016 Administered Covid Vaccine Unknown 06/12/2020 Administered Moderna Covid Vaccine Unknown 07/10/2020 Administered Moderna Influenza High Dose IM Intramuscular 02/17/2021 Administer ed SARS-COV-2 Moderna Unknown 08/04/2021 Administered PPSV23 (Pnemovax) IM Intramuscular 08/22/2021 Administered Influenza High Dose Unknown 01/16/2022 Administered [facility] Social History Tobacco Use: Social History Observation [...] Status W/U Status Risk Notes Problem Neutropenia (180215448) Neutropenia (D70.9) Active confirmed Problem Erectile dysfunction (617186033) Erectile dysfunction (N52.9) Active confirmed Problem 327236697 Essential tremor (G25.0) Active confirmed Problem 304253378 Mild intermitten t asthma without complication (J45.20) Active confirmed Problem 3807763 Prediabetes (R73.09) Active confirmed Problem 28580472 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, 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 Problem 35790716 Degeneration of cervical intervertebral disc (M50.30) Active confirmed Problem 645513584 Pure hypercholesterolemia (E78.00) Active confirmed Problem 757159368 Increased prosta te specific antigen (PSA) velocity (R97.20) Active confirmed Vital Signs Blood pressure diastolic 70 mm Hg 10/24/2024 Height 71 in 10/24/2024 Blood pressure systolic 162 mm Hg 10/24/2024 Weight 202 lbs 10/24/2024 BMI 28.17 kg/m2 10/24/2024 Encounters Encounter Location Date Provider Diagnosis Jose Greer MD [address] [phone] 03/02/2024 Jose Greer Erectile dysfunction N52.9 ; Elevated BUN R79.9 and Rising PSA level R97.20 Jose Greer MD [address] [place] [address] [phone] 10/17/2024 Jose Greer Blood tests for rout ine general physical examination Z00.00 ; Prediabetes R73.09 ; Pure hypercholesterolemia E78.00 and Increased prostate specific antigen (PSA) velocity R97.20 Jose Greer MD [address] [place] [address] [phone] 10/24/2024 Jose Greer Elevated PSA R97.20 and Neutropenia D70.9 Jose Greer MD [address] [place] [address] [phone] 11/23/2024 Jose Greer Neutropenia D70.9 an d Increased prostate specific antigen (PSA) velocity R97.20 Jose Greer MD [address] [place] [address] [phone] 03/09/2024 Jose Greer Elevated BUN R79.9 ; Rising PSA level R97.20 and Mass of left upper extremity R22.32 Jose Greer MD [address] [place] [address] [phone] 10/17/2024 Jose Greer Cellulitis L03.90 Assessments Encounter Date Diagnosis (ICD Code) Assessment Notes Treatment Notes Treatment Clinical Notes Section Notes 03/02/2024 Erectile dysfunction (ICD-10 - N52.9) 03/02/2024 Elevated BUN (ICD-10 - R79.9) 10/17/[address] ine general physical examination (ICD-10 - Z00.00) 10/24/2024 Elevated PSA (ICD-10 - R97.20) is slighlty higher than expected. will repeat and if it doesn't decrease will refer to urology 10/24/2024 Neutropenia (ICD-10 - D70.9) a little bit lower than previously/ will repeat when we do the repeat psa 11/23/2024 Neutropenia (ICD-10 - D70.9) 03/09/2024 Elevated BUN (ICD-10 - R79.9) has returned to normal, will coontinue to monitor 03/09/2024 Rising PSA level (ICD-10 - R97.20) has dropped back to acceptible, will continue to monitor 10/17/2024 Cellulitis (ICD-10 - L03.90) patient verbalized undrstanding of medication and directions for use 03/02/2024 Rising PSA level (ICD-10 - R97.20) 10/17/2024 Prediabetes (ICD-10 - R73.09) 11/23/2024 Increased prostate specific antigen (PSA) velocity (ICD-10 - R97.20) 03/09/2024 Mass of left upper extremity (ICD-10 - R22.32) going to get mri and follow up with dr mccormick 10/17/2024 Pure hypercholesterolemia (ICD-10 - E78.00) 10/17/2024 Increased prostate specific antigen (PSA) velocity (ICD-10 - R97.20) Plan Of Treatment Pending Test Test Name Order Date Electrocardiogram (EKG) 07/23/2017 Electrocardiogram (EKG) 08/04/2018 CBC (INCLUDES DIFF/PLT) 02/02/2011 XR CHEST 2 VIEW PA & LAT 04/13/2022 Complete Blood Count Auto Diff 5 Complete Blood Count Auto Diff 5 PSA,Total (Free>4and<10) 11/23/2024 PSA,Total (Free>4and<10) 10/24/2024 Next Appt Details Provider Name:Jose cowan, 04/16/2025 10:15:00 AM, [address] [place] [address], [address], [place], [phone], Provider Name:Jose cowan, 10/23/2025 07:00:00 AM, [address] [place] [address], [address], [place], [phone], Provider Name:Jose cowan, 10/30/2025 10:30:00 AM, [address], [address], [place], [place], [phone], Insurance Providers Payer Name Payer Address Payer Phone Subscriber Number Group Number Insured Name Patient Relationship to Insured Coverage Start Date Coverage End Date [employer] [address] [place] [address] [id number] Mark Rayo Self - patient is the insured [facility] [employer] [place] [id number] Mark Rayo Self - patient is the insured Medical (General) History Medical History History ICD Code colonoscopy 10/2006 due in ; colonoscopy done 06/11/[address] Marcelino (repeat 5 yrs)09/10/23 colonoscopy repeat 3y 09/02/20 Colonoscopy completed, due 3 2023
[2024-11-23 11:47] LABS: PSA,Total (Free>4and<10) 2.48 ng/mL (0.00-4.00)
== END 2024-11-23 10:35 | disposition home or self-care (01) ==
LOC: HO.LNP 10:34
PROVIDERS: Visit Provider Internal Medicine
DX: R97.20 Elevated prostate specific antigen [PSA] (principal); D70.9 Neutropenia, unspecified
CPT/HCPCS: 84153; 85025

== ENCOUNTER 2025-01-08 10:15 | Outpatient (REF) | payer MEDICARE, OTHER, SELFPAY ==
--- OUTSIDE RECORDS SUMMARY | 2023-09-10 03:30 | XMS_ITS ---
Author Organization [facility] Address [address] [place] [address] Care Team Providers Care Metrology Engineer Name Role Phone Juan M Hernandez MD Primary Care Provider Un available Dae Marcelino Unavailable [phone] DONNELL Gonzalez Kasey Unavailable Unavailable REASON FOR VISIT screening,hx polyps,ulcerative rectosigmoiditis Problems Problem Type SNOMED Code ICD Code Onset Dates Problem Status W/U Status Risk Notes Problem History of polyp of colon (situation) (463480619) Personal history of colonic polyps (Z86.010) Active confirmed Problem Diverticular disease of colon (874743766) Diverticulosis of large intestine without perforation or abscess without bleeding (K57.30) Active confirmed Encounters Encounter Location Date Provider Diagnosis [facility] [place] [address] [place] [phone] 09/10/2023 Dae Marcelino Ulcerative rectosigmoiditis without complication [...] NED BLISS FDOB: [birth year] (74 yo M)Acc No.[id number]:09/10/2023 COLON WITH MAC Patient: NED RODRIGUES Provider: Amalia Marcelino MD :1950 A ge:73 Y S ex:Male Date:09/10/2023 Address:[address] [place], [place] [phone] Pcp:Sonu Nix Subjective: * Chief Complaints: * [...] 09/10/2023 Generated for Marly hobbs/Penny/Aaronitting on: 0 01/08/2025 12:13 PM EDT
--- OUTSIDE RECORDS SUMMARY | 2024-10-17 03:30 | XMS_ITS ---
Author Organization Jose Greer MD Address [address] [place] [phone] Care Team Providers Care Optical Glass Inspector Name Role Phone Jose Greer Primary Care Provider Results Component Value Reference Range Notes Complete Blood Count Auto Di ff Reviewed date:10/17/2024 05:08:00 PM Interpretation: Performing Lab:[facility], [address] [place] [phone] Notes/Report: White Blood Count 3.9 4.8-10.8 X10*3/uL Red Blood Count 4.76 4.60-5.80 X10*6/uL Hemoglobin 14.8 14.0-18.0 g/dl Hematocrit 43.6 42.0-52.0 % Mean Corpuscular Volume 91.6 80.0-98.0 fL Mean Corpuscular Hemoglobin 31.1 27.0-33.0 pg Mean Corpuscular HGB Conc 33.9 31.0-36.0 g/dl Red Cell Distribution Width 12.8 11.0-16.0 % Platelet Count 280 160-400 X10*3/uL Mean Platelet Volume 10.5 9.4-12.4 fL Neutrophils Percent Auto 51.3 45-73 % Imm Gran Pct Auto 0.0 0.0-0.4 % Lymphocytes Percent Auto 33.1 20-40 % Monocytes Percent Auto 12.8 2-11 % Eosinophils Percent Auto 2.3 0-4 % Basophils Percent Auto 0.5 0-2 % NRBC Pct Auto 0.0 0.0-0.2 /100WBC Neutrophils Absolute Auto 2.0 2.0-8.3 x10*3/u L Imm Gran Abs Auto 0.00 0.00-0.03 X10*3/uL Lymphocytes Absolute Auto 1.3 1.2-4.9 X10*3/u L Monocytes Absolute Auto 0.5 0.1-1.2 X10*3/uL Eosinophils Absolute Auto 0.1 0.0-0.4 X10*3/u L Basophils Absolute Auto 0.0 0.0-0.2 X10*3/uL NRBC Abs Auto 0.000 0.0-0.012 X10*3/uL Comprehensive [place]. Panel Fa st Reviewed date:10/17/2024 05:09:10 PM Interpretation: Performing Lab:[facility], [address] [place] [phone] Notes/Report: Sodium 142 135-145 mmol/L Potassium 4.1 3.3-5.1 mmol/L Chloride 108 96-108 mmol/L Carbon Dioxide 29 22-29 mmol/L Anion Gap 9 12-20 Blood Urea Nitrogen 22 9-16 mg/dL Creatinine 0.99 0.5-1.4 mg/dL Estimated Glomerular Filt Rate > 60 Chronic Kidney Disease: Estimated GFR < 60 mL/min/1.73m2 Severe Kidney Disease: Estimated GFR < 15 mL/min/1.73m2 Glucose Fasting 92 60-99 mg/dL Calcium 9.5 8.4-10.2 mg/dL Bilirubin Total 0.7 0.0-1.0 mg/dL Aspartate Amino Transferase 28 5-37 U/L Alanine Aminotransferase 21 0-40 U/L Total Protein 8.0 6.5-8.0 g/dL Albumin Level 4.7 3.5-5.0 g/dL Alkaline Phosphatase 49 39-117 U/L Lipid Panel Reviewed date:10/17/2024 12:28:39 PM Interpretation: Performing Lab:[facility], [address] [place] [phone] Notes/Report: Triglycerides 85 <150 mg/dL Desirable Triglyceride: less than 150 mg/dL Borderline High Triglyceride 150-199 mg/dL High Triglyceride: 200-499 mg/dL Very High Triglyceride: greater than or equal to 5OO mg/dL Cholesterol 178 <200 mg/dL Desirable Cholesterol: less than 200 mg/dL Borderline High Cholesterol: 200-239 mg/dL High Cholesterol: greater than 239 mg/dL LDL Cholesterol Calculated 119 <100 mg/dL Desirable LDL: less than 100 mg/dL Near Optimal/Above Optimal LDL: 110-129 mg/dL Borderline High LDL: 130-159 mg/dL High LDL: 160-189 mg/dL Very High LDL: greater than or equal to 190 mg/dL HDL Cholesterol 42 >40 mg/dL Desirable HDL: greater than 40 mg/dL Note: This HDL assay may give artificially low results in patients with liver disease. PSA,Total (Free>4and<10) Reviewed date:10/24/2024 12:21:50 PM Interpretation:10-24-2024 Performing Lab:[facility], [address] [place] [phone] Notes/Report: PSA,Total (Free>4and<10) 4.19 0.00-4.00 ng/mL PSA methodology: Coats Alinity i Chemiluminescent Microparticle Immunoassay (CMIA) Microalbumin, Random Reviewed date:10/17/2024 12:40:16 PM Interpretation: Performing Lab:[facility], [address] [place] [phone] Notes/Report: Creatinine Urine 336.81 Microalbumin Urine 18.0 Microalbum/Creatinine Ratio Ur 5.3 <30 ug/mg cr Albumin/Creatinine Ratio Reference Ranges: Normal: < 30 ug/mg creatinine Microalbuminuria: 30 - 300 ug/mg creatinine Clinical Albuminuria: > 300 ug/mg creatinine Hemoglobin A1c Reviewed date:10/17/2024 12:23:51 PM Interpretation: Performing Lab:[facility], [address] [place] [phone] Notes/Report: Hemoglobin A1c % 5.6 <6.0 % Hemoglobin A1C Reference Range Adults: 4.8 - 6.0 % Non diabetic: < 6.0 % Goal: < 7.0 % Additional Action Suggested: > 8.0 % Note: Hemoglobin A1c results are invalid for patients with abnormal amounts of HbF. Blood transfusions may impact the HbA1c concentration in the patient sample. Estimated Average Glucose 114 eAG = Estimated average glucose which is %A1C expressed as average glucose, using the formula of the N1M-Whilxlp Average Glucose study (ADAG), Diabetes Care, Vol.31,#8, 2007 UA ClnCatch+Micro w/rflx Cul t Reviewed date:10/17/2024 05:08:35 PM Interpretation: Performing Lab:[facility], [address] [place] [phone] Notes/Report: Urine, Clean Catch Color Urine Dark Yellow Appearance Urine Clear PH 5.5 5.0-9.0 Glucose Urine UA Negative Negative mg/dL Urine Blood Negative Negative Specific Jordan - Urine >= 1.030 1.005-1.025 Urine Protein Trace Neg-Trace mg/dL Urine Ketones Trace Negative mg/dL Nitrite Urine Negative Negative Leukocyte Esterase Urine Small (1+) Negative RBC Urine 0-2 0-2 /HPF WBC Urine 11-20 0-5 /HPF Squamous Epithelial Cell Urine 0-2 0-2 /HPF Bacteria Urine None Seen None Seen Hyaline Casts Urine 0-2 0-2 /LPF REASON FOR VISIT yearly fasting labs Encounters Encounter Location Date Provider Diagnosis Jose Greer MD [address] [place] [address] [address] [place], [place] [phone] 10/17/2024 Jose Greer Blood tests for rout ine general physical examination Z00.00 ; Prediabetes R73.09 ; Pure hypercholesterolemia E78.00 and Increased prostate specific antigen (PSA) velocity R97.20 Assessments Encounter Date Diagnosis (ICD Code) Assessment Notes Treatment Notes Treatment Clinical Notes Section Notes 10/17/2024 Blood tests for rout ine general physical examination (ICD-10 - Z00.00) 10/17/2024 Prediabetes (ICD-10 - R73.09) 10/17/2024 Pure hypercholesterolemia (ICD-10 - E78.00) 10/17/2024 Increased prostate specific antigen (PSA) velocity (ICD-10 - R97.20) Plan Of Treatment Next Appt Details Provider Name:Jose Coates ier, 04/16/2025 10:15:00 AM, [address], [address], [place], [place], [phone], Provider Name:Jose Coates ier, 10/23/2025 07:00:00 AM, [address], [address], [place], [place], [phone], Provider Name:Jose Coates ier, 10/30/2025 10:30:00 AM, [address], [address], [place], [place], [phone], Progress Notes * Mark RAYO FDOB: [birth year] (74 yo M)Acc No.[id number]:10/17/2024 Progress Note Patient: Mark RODRIGUES Provider: Jolie Greer MD :1950 A ge:74 Y S ex:Male Date:10/17/2024 Address:[address] [place] [address] Subjective: * Chief Complaints: * 1 . Yearly fasting labs. * Medical History: Objective: * Vitals: Assessment: * Assessment: 1. B lood tests for routine general physical examination - Z00.00 (Primary) 2 .?Prediabetes - R73.09 3 . P ure hypercholesterolemia - E78.00 ?4. I ncreased prostate specific antigen (PSA) velocity - R97.20 Plan: * Treatment: 2. P rediabetes L AB: Complete Blood Count Auto Diff (Collection Date & Time - 10/17/2024 07:30 AM) L AB: Comprehensive [place]. Panel Fast (Collection Date & Time - 10/17/2024 07:30 AM) L AB: Lipid Panel (Collection Date & Time - 10/17/2024 07:30 AM) L AB: PSA,Total (Free>4and<10) (Collection Date & Time - 10/17/2024 07:30 AM) L AB: Microalbumin, Random (Collection Date & Time - 10/17/2024 07:30 AM) L AB: Hemoglobin A1c (Collection Date & Time - 10/17/2024 07:30 AM) L AB: UA ClnCatch+Micro w/rflx Cult (Collection Date & Time - 10/17/2024 07:30 AM) 3. P ure hypercholesterolemia L AB: Complete Blood Count Auto Diff (Collection Date & Time - 10/17/2024 07:30 AM) L AB: Comprehensive [place]. Panel Fast (Collection Date & Time - 10/17/2024 07:30 AM) L AB: Lipid Panel (Collection Date & Time - 10/17/2024 07:30 AM) L AB: PSA,Total (Free>4and<10) (Collection Date & Time - 10/17/2024 07:30 AM) L AB: Microalbumin, Random (Collection Date & Time - 10/17/2024 07:30 AM) L AB: Hemoglobin A1c (Collection Date & Time - 10/17/2024 07:30 AM) L AB: UA ClnCatch+Micro w/rflx Cult (Collection Date & Time - 10/17/2024 07:30 AM) 4. I ncreased prostate specific antigen (PSA) velocity L AB: Complete Blood Count Auto Diff (Collection Date & Time - 10/17/2024 07:30 AM) L AB: Comprehensive [place]. Panel Fast (Collection Date & Time - 10/17/2024 07:30 AM) L AB: Lipid Panel (Collection Date & Time - 10/17/2024 07:30 AM) L AB: PSA,Total (Free>4and<10) (Collection Date & Time - 10/17/2024 07:30 AM) L AB: Microalbumin, Random (Collection Date & Time - 10/17/2024 07:30 AM) L AB: Hemoglobin A1c (Collection Date & Time - 10/17/2024 07:30 AM) L AB: UA ClnCatch+Micro w/rflx Cult (Collection Date & Time - 10/17/2024 07:30 AM) * Procedure Codes: 3 6415 VENIPUNCT, ROUTINE* * * The named appointment provid er may or may not be the originator of this progress note, and it is not deemed complete until electronically signed by the appointment provider. Sign off status: Pending * Provider: Jolie Greer MD Date: 0 10/17/2024 Generated for Marly hobbs/Penny/Sherly on: 0 01/08/2025 12:12 PM EDT
--- OUTSIDE RECORDS SUMMARY | 2024-10-17 10:30 | XMS_ITS ---
Author Organization Jose Greer MD Address [address] [place] [phone] Care Team Providers Care Hypnotherapist Name Role Phone Jose Greer Primary Care Provider [phone] Allergies No Known Allergies REASON FOR VISIT ? left hand cellulitis after a fall Medications Medication SIG (Take, Route, Frequency, Duration) Notes Start Date End Date Status Soma 250 MG 1 tablet as needed Orally PRN Not-Taking Diclofenac 35 MG 1 capsule as needed Orally Three times a day Not-Best ing Canasa 1000 MG 1 suppository at bed time Rectal Once a day for 30 day(s) Active Albuterol Sulfate HFA 108 (90 Base) MCG/ACT 2 puffs as needed Inhalation every 4 hrs Active Balsalazide Disodium 750 MG 3 capsules Orally BID for 30 day(s) Active buPROPion HCl ER (Smoking Det) 150 MG 1 tablet Orally once a day Active Cephalexin 500 MG 1 capsule Orally 3 t imes a day for 10 days 10/17/2024 Active Ocuvite Adult 50+ Orally Ac tive Vital Signs Blood pressure systolic 140 mm Hg 10/18/19 25 Blood pressure diastolic 64 mm Hg 025 Height 71 in 10/17/2024 Weight 202 lbs 10/17/2024 BMI 28.17 kg/m2 10/17/2024 weight is down 3 pounds [facility] 11-7-24 Encounters Encounter Location Date Provider Diagnosis Jose Greer MD [address] [place] [phone] 10/17/2024 Jose Greer Cellulitis L03.90 Assessments Encounter Date Diagnosis (ICD Code) Assessment Notes Treatment Notes Treatment Clinical Notes Section Notes 10/17/2024 Cellulitis (ICD-10 - L03.90) patient verbalized undrstanding of medication and directions for use Plan Of Treatment Medication Medication Name Sig Start Date Stop Date Notes Cephalexin 500 MG 1 capsule Orally 3 t imes a day for 10 days 10/17/2024 Treatment Notes Assessment Notes Cellulitis patient verbalized u ndrstanding of medication and directions for use Next Appt Details Provider Name:Jose cowan, 04/16/2025 10:15:00 AM, [address] [place] [address], [address], [phone], Provider Name:Jose cowan, 10/23/2025 07:00:00 AM, [address] [place] [address], [address], [phone], Provider Name:Jose cowan, 10/30/2025 10:30:00 AM, [address] [place] [address], [address], [phone], Progress Notes * Mark RAYO FDOB: [birth year] (74 yo M)Acc No.[id number]:10/17/2024 Progress Notes Patient: Mark RODRIGUES Provider: Jolie Greer MD :1950 A ge:74 Y S ex:Male Date:10/17/2024 Address:[address] [place], [place] [phone] Subjective: * Chief Complaints: * ? left hand cellulitis after a fall * HPI: F all Risk: History H ave you had any falls with injury in the past year? Y es 10-11-24 carrying lawn motor blade reaching for his keys tripped on step landed landed on left hand, no ER Visit.. S ymptom(s): Pt is a 74 yo male here for possible celluitis on hand. Pt had a recent fall injured L hand. * ROS: G eneral/Constitutional: Denies C hills. D enies F atigue. D enies F ever. D enies H eadache. E NT: Denies S ore throat. R espiratory: Denies C ough. D enies S hortness of breath at rest. D enies S hortness of breath with exertion. G astrointestinal: Denies D iarrhea. D enies N ausea. * Medical History: * Surgical History: * Hospitalization/Major Diagno stic Procedure: * Medications: T akingOcuvite Adult 50+ Capsule Orally buPROPion HCl ER (Smoking Det) 150 MG Tablet Extended Release 12 Hour 1 tablet Orally once a day Balsalazide Disodium 750 MG Capsule 3 capsules Orally BID Albuterol Sulfate HFA 108 (90 Base) MCG/ACT Aerosol Solution 2 puffs as needed Inhalation every 4 hrs Canasa 1000 MG Suppository 1 suppository at bedtime Rectal Once a day Taking Ocuvite Adult 50+ Capsule Orally Taking buPROPion HCl ER (Smoking Det) 150 MG Tablet Extended Release 12 Hour 1 tablet Orally once a day Taking Balsalazide Disodium 750 MG Capsule 3 capsules Orally BID Taking Albuterol Sulfate HFA 108 (90 Base) MCG/ACT Aerosol Solution 2 puffs as needed Inhalation every 4 hrs Taking Canasa 1000 MG Suppository 1 suppository at bedtime Rectal Once a day Not-Taking/PRNDiclofenac 35 MG Capsule 1 capsule as needed Orally Three times a day Soma 250 MG Tablet 1 tablet as needed Orally PRN Medication List reviewed and reconciled with the patientNot-Taking/PRN Diclofenac 35 MG Capsule 1 capsule as needed Orally Three times a day Not-Taking/PRN Soma 250 MG Tablet 1 tablet as needed Orally PRN Medication List reviewed and reconciled with the patient * Allergies: N .K.D.A.yes[Allergies Verified] Objective: * Vitals: H t: 71, Wt: 202, BMI:28.17, BP:140/64, Wt-k.63. weight is down 3 pounds since 03-09-24. * Examination: G eneral Examination: GENERAL APPEARANCE: a lert, well hydrated, in no distress.? EXTREMITIES: a bnormal with an abrssion and a cellulitis of dorsum of his left hand. Assessment: * Assessment: 1. Ashtyn sheffield - L03.90 (Primary) Plan: * Treatment: * Procedure Codes: * * Sign off status: Completed true * Provider: Jolie Greer MD Date: 10/17/2024 Generated for Marly hobbs/Penny/Sherly on: 01/08/2025 12:12 PM EDT History and Physical Notes * HPI (History of Present Illness) Category Sub-Category Detail Notes Category Not es Symptom(s) Pt is a 74 yo m jennyfer here for possible celluitis on hand. Pt had a recent fall injured L hand Fall Risk History Have you had any falls with injury in the past year?: Yes 10-11-24 carrying lawn motor blade reaching for his keys tripped on step landed landed on left hand, no ER Visit. Examination Category Sub-Category Detail Notes Category Not es General Examination GENERAL APPEARANCE: alert, w ell hydrated, in no distress EXTREMITIES: abnormal with an abr ssion and a cellulitis of dorsum of his left hand
--- OUTSIDE RECORDS SUMMARY | 2024-10-24 06:30 | XMS_ITS ---
Author Organization Jose Greer MD Address [address] [place] [phone] Care Team Providers Care Labor Economist Name Role Phone Jose Greer Primary Care [...] Status W/U Status Risk Notes Problem Neutropenia ([id number]) Neutropenia (D70.9) Active confirmed Vital Signs Blood pressure systolic 162 mm Hg 10/25/19 25 Blood pressure diastolic 70 mm Hg 025 Height 71 in 10/24/2024 Weight 202 lbs 10/24/2024 BMI 28.17 kg/m2 10/24/2024 Encounters Encounter Location Date Provider Diagnosis Jose Greer MD [address] [place] [address] [place] [phone] 10/24/2024 Jose Greer Elevated PSA R97.20 and [...] 6 Months, Reason: Provider Name:Jose Coates ier, 04/16/2025 10:15:00 AM, [address], [address], [place], [phone], Provider Name:Jose Coates ier, 10/23/2025 07:00:00 AM, [address], [address] [facility], [place], [phone], Provider Name:Jose Coates ier, 10/30/2025 10:30:00 AM, [address], [address], [place], [phone], Progress Notes * Mark RAYO FDOB: [birth year] (74 yo M)Acc No.[id number]:10/24/2024 Patient: Chaitanya SANDIMark Provider: Jolie Greer MD :1950 A ge:74 Y S ex:Male Date:10/24/2024 Address:[address] [place] [address] Subjective: * Chief Complaints: * 1 . [...] mg/dL Urine Blood Negative Negative - Specific [place] - Urine >= 1.030 H 1.005-1.025 - [...] Auto 0.000 0.0-0.012 - X10*3/uL L ab:Comprehensive [place]. Panel Fast (Order Date - 10/17/2024) (Collection [...] Counseling: C are goal follow-up plan: C ounseling for abnormal BMI provided?Yes, A dennis Normal BMI Follow-up G saira encouragement to exercise. * Follow Up: 6 Months * * The named appointment provid er may or may not be the originator of this progress note, and it is not deemed complete until electronically signed by the appointment provider. Sign off status: Pending * Provider: Jolie Greer MD Date: 0 10/24/2024 Generated for Marly hobbs/Penny/Aaronitting on: 0 01/08/2025 12:12 PM EDT History and Physical [...]
--- OUTSIDE RECORDS SUMMARY | 2024-11-23 03:45 | XMS_ITS ---
Author Organization Jose Greer MD Address [address] [place] [phone] Care Team Providers Care Volunteer Services Manager Name Role Phone Jose Greer Primary Care Provider Results Component Value Reference Range Notes Complete Blood Count Auto Di ff Reviewed date:11/23/2024 05:00:06 PM Interpretation: Performing Lab:[facility], [address] [place] [phone] Notes/Report: White Blood Count 5.1 4.8-10.8 X10*3/uL [...] (Free>4and<10) Reviewed date:11/23/2024 12:32:06 PM Interpretation: Performing Lab:[facility], [address] [place] [phone] Notes/Report: PSA,Total (Free>4and<10) 2.48 0.00-4.00 ng/mL A [...] Location Date Provider Diagnosis Jose Greer MD [address] [place] [address] [place] [phone] 11/23/2024 Jose Greer Neutropenia D70.9 and Increased prostate specific antigen (PSA) velocity R97.20 Assessments Encounter Date Diagnosis (ICD Code) Assessment Notes Treatment Notes Treatment Clinical Notes Section Notes 11/23/2024 Neutropenia (ICD-10 - D70.9) 11/23/2024 Increased prostate specific antigen (PSA) velocity (ICD-10 - R97.20) Plan Of Treatment Next Appt Details Provider Name:Jose cowan, 04/16/2025 10:15:00 AM, [address] [place] [address], [address] [place] [address], [phone], Provider Name:Jose cowan, 10/23/2025 07:00:00 AM, [address] [place] [address], [address] [place] [address], [phone], Provider Name:Jose cowan, 10/30/2025 10:30:00 AM, [address] [place] [address], [address] [place] [address], [phone], Progress Notes * Mark RAYO FDOB: [birth year] (74 yo M)Acc No.[id number]:11/23/2024 Progress Note Patient: Mark RODRIGUES Provider: Jolie Greer MD :1950 A ge:74 Y S ex:Male Date:11/23/2024 Address:[address] [place] [address] Subjective: * Chief Complaints: * 1 . [...] 0 11/23/2024 Generated for Marly hobbs/Penny/Sherly on: 0 01/08/2025 12:13 PM EDT
--- NOTE | ~2025-01-08 | XR_ITS ---
EXAMINATION: XR LUMBOSACRAL SPINE CLINICAL INFORMATION: BACK PAIN COMPARISON: None available. TECHNIQUE: Three views of the lumbosacral spine. FINDINGS: There are 5 nonrib-bearing lumbar segments. There is mild disc space narrowing throughout the lumbar spine. L2-3 demonstrates grade 1 retrolisthesis. L3-4 demonstrates subtle retrolisthesis. There is facet sclerosis and osteophytes at L4-5 and L5-S1. Mild atherosclerotic ossification is present in the abdominal aorta. Subchondral sclerosis is noted in the right greater than left SI joints. XR/XR lumbar spine 2-3V IMPRESSION: Multilevel degenerative disc disease and facet osteoarthritis. Mild SI joint degenerative changes. Electronically signed by: Shelton Naidu MD 01/08/2025 12:30 PM EDT
--- OUTSIDE RECORDS SUMMARY | 2025-01-08 05:45 | XMS_ITS ---
Author Organization Jose Greer MD Address [address] [place] [phone] Care Team Providers Care Global Recruiter Name Role Phone Jose Greer Primary Care Provider Allergies No Known Allergies REASON FOR VISIT back pain x 4 [...] Location Date Provider Diagnosis Jose Greer MD [address] [place] [address] [place] [phone] 01/08/2025 Jose Greer Back pain M54.9 ; Le g edema R60.0 and Encounter for administration of vaccine Z23 Assessments Encounter Date Diagnosis (ICD Code) Assessment Notes Treatment Notes Treatment Clinical Notes Section Notes 01/08/2025 Back pain (ICD-10 - M54.9) X-ray order given to patient 01/08/2025 Leg edema (ICD-10 - R60.0) is probably from the nsaid 01/08/2025 Encounter for administration of vaccine (ICD-10 - Z23) Plan Of Treatment Medication Medication Name Sig Start Date Stop Date Notes hydroCHLOROthiazide 50 MG 1 tablet in th e morning Orally Once a day for 10 days 01/08/2025 HYDROcodone-Acetaminophen 5-325 MG 1 tablet as needed Orally every 6 hrs as needed for 10 days 01/08/2025 Partial Fill upon Patient Request Treatment Notes Assessment Notes Back pain X-ray order given to patient Leg edema is probably from the nsaid Pending Test Test Name Order Date XR lumbar spine 2-3V 01/08/2025 Next Appt Details Provider Name:Jose cowan, 04/16/2025 10:15:00 AM, [address] [place] [address], Suite [facility], [place], [place], [phone], Provider Name:Jose cowan, 10/23/2025 07:00:00 AM, [address] [place] [address], [place] [address], [place], [place], [phone], Provider Name:Jose Coates ier, 10/30/2025 10:30:00 AM, [address], [address], [place], [place], [phone], Progress Notes * Mark RAYO FDOB: [birth year] (74 yo M)Acc No.[id number]:01/08/2025 Progress Notes Patient: Mark RODRIGUES Provider: Jolie Greer MD :1950 A ge:74 Y S ex:Male Date:01/08/2025 Address:[address] [place] [address] Subjective: * Chief Complaints: * 1 . Back pain x 4 days and leg edema x 3 days. * HPI: S ymptom(s): was doing some exercises that he saw on you tube some squats and lifting toes. his saw his foot drop. his daughter who works in physical therapy. took diclofenac for a few days. * ROS: G eneral/Constitutional: Denies C hills. D enies F atigue. D enies F ever. E NT: Denies S ore throat. R espiratory: Denies C ough. D enies S hortness of breath at rest. D enies S hortness of breath with exertion. G astrointestinal: Denies D iarrhea. D enies N ausea. * Medical History: c olonoscopy 10/2006 due in 2014; colonoscopy done 06/11/[address] Marcelino (repeat 5 yrs)09/10/23 colonoscopy repeat 3y, 09/02/20 Colonoscopy completed, due 3 yrs 2023. * Medications: T aking Cyclobenzaprine HCl 5 [...] bedtime Rectal Once a day , Taking Diclofenac 35 MG [...] 10 Tablet. Notes: is probably from the nsaid * Immunizations: Influenza High Dose : 0.5 mL (Dose No:1) (Route: Intramuscular) given by Ericka Pruett , Office Staff on Right Deltoid * Procedure Codes: 9 0662 FLU VACC PRSV FREE INC ANTIG, G0008 ADMN FLU VAC NO FEE SCHED SAME DAY * * The named appointment provid er may or may not be the originator of this progress note, and it is not deemed complete until electronically signed by the appointment provider. Sign off status: Pending * Provider: Jolie Greer MD Date: 0 01/08/2025 Generated for Marly hobbs/Penny/Sherly on: 01/08/2025 12:12 PM EDT History and Physical Notes * HPI (History of Present Illness) Category Sub-Category Detail Notes Category Not es Symptom(s) was doing some exercises that he saw [...]
--- OUTSIDE RECORDS SUMMARY | 2025-01-08 12:13 | XMS_ITS | Patient Health Record ---
Author Organization [facility] Address [address] [place] [phone] Care Team Providers Care Dba Name Role Phone Juan M Hernandez MD Primary Care Provider Un available Dae Marcelino Unavailable [phone] DONNELL Gonzalez Kasey Unavailable Unavailable Allergies No Known Allergies Reason For Referral No Information Medications Medication SIG (Take, Route, Frequency, Duration) Notes Start Date End Date Status Balsalazide Disodium 750 MG 3 Orally Twice a day for 30 days Active Mesalamine 1000 MG 1 suppository at bedtime Rectal Every night at bedtime for 30 days 06/02/2022 Active Ocuvite Unknown Cyclobenzaprine HCl 10 MG 1 [...] Sulfate HFA Unknown buPROPion HCl Unknow n Canasa 1000 MG 1 suppository at bedtime Rectal QHS for 30 day(s) uses rarely 06/14/2012 Unknown Balsalazide Disodium 750 MG 3 capsules Orally Twice a day for 30 days Active Flonase Unknown Immunizations Vaccine Route Administration Date Status Comme nts Influenza Unknown 02/14/2020 Administered Influenza Unknown 02/17/2022 Administered Problems Problem Type SNOMED Code ICD Code Onset Dates Problem Status W/U Status Risk Notes Problem 846654215 Colon cancer screening (Z12.11) Active confirmed Problem 637973300 Encounter for screening for malignant neoplasm of colon (Z12.11) Active confirmed Problem 861477697 History of adenomatous polyp of colon (Z86.010) Active confirmed Problem History of polyp of colon (situation) (044182215) Personal history of colonic polyps (Z86.010) Active confirmed Problem Diverticular disease of colon (459138612) Diverticulosis of large intestine without perforation or abscess without bleeding (K57.30) Active confirmed Problem Screening for malignant neoplasm of rectum (911720549) Encounter for screening for malignant neoplasm of rectum (Z12.12) Active confirmed Problem 824429335 History of colon polyps (Z86.010) Active confirmed Problem 77493516 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 Problem 850233750 Hx of adenomatou s colonic polyps (Z86.010) Active confirmed Encounters Encounter Location Date Provider Diagnosis [facility] [address] [place] [address] 10/24/2024 Dae Marcelino Plan Of Treatment Future Test Test Name Order Date COLONOSCOPY 03/21/2015 COLONOSCOPY 08/14/2020 COLONOSCOPY 05/15/2023 Insurance Providers Payer Name Payer Address Payer Phone Subscriber Number Group Number Insured Name Patient Relationship to Insured Coverage Start Date Coverage End Date [facility] [address] [place] [id number] NED BLISS Self - patient is the insured Medical (General) History Medical History History ICD Code Ulcerative colitis-dx'd in 10/2006-involv ed the rectum and sigmoid colon Denies ME,DM,CVA,Lung disease,renal dise ase Herniated cervical spine disc [...]
--- OUTSIDE RECORDS SUMMARY | 2025-01-08 12:13 | XMS_ITS | Patient Health Record ---
Author Organization Jose Greer MD Address [address] [place], [place] [id number] Care Team Providers Care Waiter/Waitress Take Out Name Role Phone Jose Greer Primary Care Provider Allergies No Known Allergies Results Component Value Reference Range Notes Blood Urea Nitrogen Reviewed date:03/02/2024 12:35:00 PM Interpretation: Performing Lab:[address] [phone] Notes/Report: Blood Urea Nitrogen 16 9-16 mg/dL Creatinine Reviewed date:03/02/2024 12:30:45 PM Interpretation: Performing Lab:[facility], [address] [place] [phone] Notes/Report: Creatinine 0.98 0.5-1.4 mg/dL Estimated Glomerular Filt Rate > 60 NOTE: For -Malagasy individuals, multiply the result by 1.210. Chronic Kidney Disease: Estimated GFR < 60 mL/min/1.73m2 Severe Kidney Disease: Estimated GFR < 15 mL/min/1.73m2 PSA,Total (Free>4and<10) Reviewed date:03/02/2024 12:38:14 PM Interpretation: Performing Lab:[facility], [address] [place] [phone] Notes/Report: PSA,Total (Free>4and<10) 2.94 0.00-4.00 ng/mL A [...] ff Reviewed date:10/17/2024 05:08:00 PM Interpretation: Performing Lab:[facility], [address] [place] [phone] Notes/Report: White Blood Count 3.9 4.8-10.8 X10*3/uL [...] NRBC Abs Auto 0.000 0.0-0.012 X10*3/uL Comprehensive [place]. Panel Fa st Reviewed date:10/17/2024 05:09:10 PM Interpretation: Performing Lab:[address] [phone] Notes/Report: Sodium 142 135-145 mmol/L Potassium 4.1 [...] Panel Reviewed date:10/17/2024 12:28:39 PM Interpretation: Performing Lab:[address] [phone] Notes/Report: Triglycerides 85 <150 mg/dL Desirable Triglyceride: [...] (Free>4and<10) Reviewed date:10/24/2024 12:21:50 PM Interpretation:10-24-2024 Performing Lab:[facility], [address] [place] [phone] Notes/Report: PSA,Total (Free>4and<10) 4.19 0.00-4.00 ng/mL PSA methodology: Coats Alinity i Chemiluminescent Microparticle Immunoassay (CMIA) Microalbumin, Random Reviewed date:10/17/2024 12:40:16 PM Interpretation: Performing Lab:[facility], [address] [place] [phone] Notes/Report: Creatinine Urine 336.81 Microalbumin Urine 18.0 Microalbum/Creatinine Ratio Ur 5.3 <30 ug/mg cr Albumin/Creatinine Ratio Reference Ranges: Normal: < 30 ug/mg creatinine Microalbuminuria: 30 - 300 ug/mg creatinine Clinical Albuminuria: > 300 ug/mg creatinine Hemoglobin A1c Reviewed date:10/17/2024 12:23:51 PM Interpretation: Performing Lab:[facility], [address] [place] [phone] Notes/Report: Hemoglobin A1c % 5.6 <6.0 % [...] average glucose, using the formula of the Y8C-Pgwlxru Average Glucose study (ADAG), Diabetes Care, Vol.31,#8, 2007 UA ClnCatch+Micro w/rflx Cul t Reviewed date:10/17/2024 05:08:35 PM Interpretation: Performing Lab:[facility], [address] [place] [phone] Notes/Report: Urine, Clean Catch Color Urine Dark Yellow Appearance Urine Clear PH 5.5 5.0-9.0 Glucose Urine UA Negative Negative mg/dL Urine Blood Negative Negative Specific Mullins - Urine >= 1.030 1.005-1.025 Urine Protein Trace Neg-Trace mg/dL Urine Ketones Trace Negative mg/dL Nitrite Urine Negative Negative Leukocyte Esterase Urine Small (1+) Negative RBC Urine 0-2 0-2 /HPF WBC Urine 11-20 0-5 /HPF Squamous Epithelial Cell Urine 0-2 0-2 /HPF Bacteria Urine None Seen None Seen Hyaline Casts Urine 0-2 0-2 /LPF Complete Blood Count Auto Di ff Reviewed date:11/23/2024 05:00:06 PM Interpretation: Performing Lab:[facility], [address] [place] [phone] Notes/Report: White Blood Count 5.1 4.8-10.8 X10*3/uL [...] (Free>4and<10) Reviewed date:11/23/2024 12:32:06 PM Interpretation: Performing Lab:[facility], [address] [place] [phone] Notes/Report: PSA,Total (Free>4and<10) 2.48 0.00-4.00 ng/mL A [...] 4.0 and 10.0 ng/mL. PSA methodology: Coats Fantasy Shoppernity i Chemiluminescent Microparticle Immunoassay (CMIA) MR dove LT wo/w con Reviewed date:03/14/2024 12:47:55 PM Interpretation: Performing Lab: Notes/Report: [address] [address] Magnetic Resonance Report Signed Patient: Mark Rayo MR#: [id number] : 1950 Acct:[id number] Age/Sex: 73 / M ADM Date: 03/14/24 Loc: HO.MRI Attending Dr: Arnie Jerez MD Ordering Physician: Arnie Jerez MD Date of Service: 03/14/24 Procedure(s): MR dove LT wo/w con Accession Number(s): [id number] cc: Jose Greer MD; Arnie Jerez MD EXAMINATION: MR HUMERUS WITHOUT AND WITH [...] acute osseous abnormality. Electronically signed by: Joe hSrestha MD 03/14/2024 12:33 PM [facility] [place] [place] Dictated By: Joe Shrestha MD Signed By: <Electronically signed by Joe Shrestha MD in OV> 03/14/24 1233 DD/ 1124 TD/TT: 03/14/24 1154 Irrigationist: [place] [id number] Magnetic Resonance Report Signed Patient: Mark Rayo MR#: [id number] : 1950 Acct:[id number] Age/Sex: 73 / M ADM Date: 03/14/24 Loc: HO.MRI Attending Dr: Devi Vallejo MD Ordering Physician: Arnie Jerez MD Date of Service: 03/14/24 Procedure(s): MR humerus LT wo/w con Accession Number(s): [id number] cc: Jose Greer MD; Arnie Jerez MD EXAMINATION: MR HUMERUS WITHOUT A ND [...] 03/14/2024 12:33 PM [facility] [place] [place] Dictated By: Joe Shrestha MD Signed By: <Electronically signed by Joe Shrestha MD in OV> 03/14/24 1233 DD/ 1124 TD/TT: 03/14/24 1154 Irrigationist: Pathology Reviewed date:05/09/2024 12:54:15 PM Interpretation: Performing Lab:[facility], [address] [place] [phone] Notes/Report: -- ---- Name: Mark Rayo Age/Sex: 73/M : 1950 Unit#: [id number] Attend Dr: Arnie Jerez MD Re04/21/24 Status : [facility] Location: [facility] Disch: -- ---- SPEC : [id number] RECD : 04/21/24 STATUS: MAYE MORE NUM: [id number] DARIA: 04/21/[address] [facility] [address]: Arnie Jerez MD ENTERED: 04/21/24 SP TYPE: Surgical OTHR DR: Jose Greer MD ORDERED: Gross Micro L3 COMMENTS: Block A2 sent to [facility] for MDMS by FISH on 04/27/24. Addendum Addendum 1 Entered: 05/08/24 MDM2 FISH analysis (Simple Admit): Results: Negative Interpretation: MDM2 signals/nucleus : 1.9 CEN12 signals/nucleu s: 1.9 MDM2/CEN12 signal ratio: 1.0 Number of observers: 1 The MDM2 to CEN12 ratio of <2.0 is a normal result. See entire report in the EMR ? reports/pathology section as a scanned report (camera icon). There is no evidence of atypical lipomatous tumor. Addendum Signed (signature on file) Ana Coombs 05/08/241835 -- ---- Diagnosis Soft tissue, left tricep intramuscular, excision: Mature lobular adipose tissue with skeletal muscle, consistent with intramuscular lipoma (see comment). Comment: As the lesi on is deep/intramuscular, MDM2 testing is pending; report to follow. Clinical History Benign lipomatous neoplasm Microscopic Description Microscopic sections reviewed. CONTINUED ON NEXT PAGE -- ---- Name: Mark Rayo Age/Sex: 73/M : 1950 Unit#: [id number] Attend Dr: Arnie Jerez MD Re04/21/24 Status : [facility] Location: [facility] Disch: -- ---- SPEC : [id number] RECD : 04/21/247613 STATUS: MAYE MORE NUM: [id number] DARIA: 04/21/24-[address] [facility] [address]: Arnie Jerez MD ENTERED: 04/21/24-14 02 SP TYPE: Surgical OTHR DR: Jose Greer MD ORDERED: Gross Micro L3 COMMENTS: Block A2 sent to [facility] for MDMS by FISH on 04/27/24. [...] fleshy, hemorrhagic or necrotic foci are identified. Operator Receptionist sections are submitted in cassettes A1-A3. CEDS Copies To: Jose Greer MD [facility] [address] [place], [place] [id number] Arnie Jerez MD [facility] [address] [place], [place] [id number] [email or web address] -- ---- Signed (signature on file) Ana Sorrento 04/27/24 1126 -- ---- END OF REPORT PSA Free and Total Reviewed date:10/18/2024 07:29:23 PM Interpretation: Performing Lab:[facility], [address] [place] [phone] Notes/Report: Prostate Specific Ag Total 3.5 < OR = 4.0 ng/mL Percent Free Prostate Spec Ag 29 >25 % (calc) PSA(ng/mL) Free PSA(%) Estimated(x) Probability of Cancer(as%) 0-2.5 (*) Approx. 1 2.6-4.0(1) 0-27(2) 24(3) 4.1-10(4) 0-10 56 11-15 28 16-20 20 21-25 16 >or =26 8 >10(+) N/A >50 References:(1)Ayana you et al.:Urology 60: 469-474 (2001) (2)Otf et al.:J.Urol 168: 922-925 (2001) Free PSA(%) Sensitivity(%) Specificity(%) < or = 25 85 19 < or = 30 93 9 (3)Catalona et al.:JANIE 277: 0100-2540 (1996) (4)Catalona et al.:JANIE 279: 5341-7999 (1997) (x)These estimates vary with age, ethnicity, [...] mind. PSA was performed using the Aniya Dorsey Immunoassay method. Values obtained from different assay methods cannot be used interchangeably. PSA levels, regardless of value, should not be interpreted as absolute evidence of the presence or absence of disease. THIS TEST WAS PERFORMED AT: [facility] [address] [place] [phone] HONORIO MORSE MD Free Prostate Spec Ag 1.0 Urine Culture Reviewed date:10/18/2024 07:35:13 PM Interpretation: Performing Lab:[facility], [address] [place] [phone] Notes/Report: Urine Culture Report Result Urine Culture < 10,000 cfu/ml Reason For Referral No Information Medications Medication SIG (Take, Route, Frequency, Duration) Notes Start Date End Date Status Ocuvite Adult 50+ Orally Ac tive HYDROcodone-Acetaminophen 5-325 MG 1 tablet as needed Orally every 6 hrs as needed for 10 days Partial Fill upon Patient Request 01/08/2025 Active Balsalazide Disodium 750 MG 3 capsules Orally BID for 30 day(s) Active buPROPion HCl ER (Smoking Det) 150 MG 1 tablet Orally once a day Active Canasa 1000 MG 1 suppository at [...] needed Orally Three times a day Active Cyclobenzaprine HCl 5 MG 1 tablet at bedtime as needed Orally Once a day Active Immunizations Vaccine Route Administration Date Status Comme nts Flu Vaccine IM Intramuscular 02/02/2011 Administered Flu Vaccine IM Intramuscular 03/07/2012 Administered Flu Vaccine Unknown 02/01/2013 Administered Flu Vaccine Unknown 03/06/2014 Administered [facility] PPSV23 (Pnemovax) IM Intramuscular 05/18/2014 Administered TDaP IM Intramuscular 06/05/2014 Administered Flu Vaccine IM Intramuscular 02/21/2015 Administered pt re cieved the high dose flu at [facility] in [place]. Flu Vaccine IM Intramuscular 02/20/2016 Administered [facility] Fluarix Quadrivalent Unknown 02/10/2016 Administered [facility] Prevnar 13 IM Intramuscular 06/25/2016 Administered Covid Vaccine Unknown 06/12/2020 Administered Moderna Covid Vaccine Unknown 07/10/2020 Administered Moderna Influenza High Dose IM Intramuscular 02/17/2021 Administer ed SARS-COV-2 Moderna Unknown 08/04/2021 Administered PPSV23 (Pnemovax) IM Intramuscular 08/22/2021 Administered Influenza High Dose Unknown 01/16/2022 Administered Big E Influenza High Dose IM Intramuscular 01/08/2025 Administer ed Social History Tobacco Use: Social History Observation [...] Status W/U Status Risk Notes Problem Neutropenia (549062875) Neutropenia (D70.9) Active confirmed Problem Erectile dysfunction (245827452) Erectile dysfunction (N52.9) Active confirmed Problem 337842224 Essential tremor (G25.0) Active confirmed Problem 324530091 Mild intermitten t asthma without complication (J45.20) Active confirmed Problem 7873582 Prediabetes (R73.09) Active confirmed Problem 60636942 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, 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 Problem 05546759 Degeneration of cervical intervertebral disc (M50.30) Active confirmed Problem 326952957 Pure hypercholesterolemia (E78.00) Active confirmed Problem 449787973 Increased prosta te specific antigen (PSA) velocity (R97.20) Active confirmed Vital Signs Blood pressure diastolic 80 mm Hg 01/08/2025 Height 71 in 01/08/2025 Blood pressure systolic 168 mm Hg 01/08/2025 Weight 202 lbs 01/08/2025 BMI 28.17 kg/m2 01/08/2025 Encounters Encounter Location Date Provider Diagnosis Jose Greer MD [address] [place] [id number] 03/02/2024 Jose Greer Erectile dysfunction N52.9 ; Elevated BUN R79.9 and Rising PSA level R97.20 Jose Greer MD [address] [place] [id number] 10/17/2024 Jose Greer Blood tests for rout ine general physical examination Z00.00 ; Prediabetes R73.09 ; Pure hypercholesterolemia E78.00 and Increased prostate specific antigen (PSA) velocity R97.20 Jose Greer MD [address] [place] [id number] 10/24/2024 Jose Greer Elevated PSA R97.20 and Neutropenia D70.9 Jose Greer MD [address] [place] [id number] 11/23/2024 Jose Greer Neutropenia D70.9 an d Increased prostate specific antigen (PSA) velocity R97.20 Jose Greer MD [address] [place] [id number] 01/08/2025 Jose Castillogenesisrekha Back pain M54.9 ; Le g edema R60.0 and Encounter for administration of vaccine Z23 Jose Greer MD [address] [place] [id number] 03/09/2024 Jose Percy Elevated BUN R79.9 ; Rising PSA level R97.20 and Mass of left upper extremity R22.32 Jose Greer MD [address] [place] [address] Drive [address] [place] [id number] 10/17/2024 Jose Olsonrekha Cellulitis L03.90 Assessments Encounter Date Diagnosis (ICD [...] repeat psa 11/23/2024 Neutropenia (ICD-10 - D70.9) 01/08/2025 Back pain (ICD-10 - M54.9) X-ray order given to patient 01/08/2025 Leg edema (ICD-10 - R60.0) is probably from the nsaid 03/09/2024 Elevated BUN (ICD-10 - R79.9) has [...] specific antigen (PSA) velocity (ICD-10 - R97.20) 01/08/2025 Encounter for administration of vaccine (ICD-10 - Z23) 03/09/2024 Mass of left upper extremity (ICD-10 - R22.32) going to get mri and follow up with dr jerez 10/17/2024 Pure hypercholesterolemia (ICD-10 - E78.00) 10/17/2024 Increased prostate specific antigen (PSA) velocity (ICD-10 - R97.20) Plan Of Treatment Pending Test Test Name Order Date Electrocardiogram (EKG) 07/23/2017 Electrocardiogram (EKG) 08/04/2018 CBC (INCLUDES DIFF/PLT) 02/02/2011 XR CHEST 2 VIEW PA & LAT 04/13/2022 Complete Blood Count Auto Diff PSA,Total (Free>4and<10) 10/24/2024 XR lumbar spine 2-3V 01/08/2025 Next Appt Details Provider Name:Jose Coates ier, 04/16/2025 10:15:00 AM, [address] [place] [address], [address], [phone], Provider Name:Jose Coates ier, 10/23/2025 07:00:00 AM, [address] [place] [address], [address], [phone], Provider Name:Jose Coates ier, 10/30/2025 10:30:00 AM, [address] [place] [address], [address], [phone], Insurance Providers Payer Name Payer Address Payer Phone Subscriber Number Group Number Insured Name Patient Relationship to Insured Coverage Start Date Coverage End Date [employer] [address] [place] [address] [id number] Mark Rayo Self - patient is the insured [employer] [address] [place] [address] [id number] Mark Rayo Self - patient is the insured Medical (General) History Medical History History ICD Code colonoscopy 10/2006 due in ; colonoscopy done 06/11/[address] Marcelino (repeat 5 yrs)09/10/23 colonoscopy repeat 3y 09/02/20 Colonoscopy completed, due 3 yrs 2023
== END 2025-01-08 10:16 | disposition home or self-care (01) ==
LOC: HO.XRAY 10:15
PROVIDERS: PCP Internal Medicine; Visit Provider Internal Medicine
DX: M54.9 Dorsalgia, unspecified (principal)
CPT/HCPCS: 72100

== ENCOUNTER → 2025-01-08 10:26 | Outpatient (BNV) | payer MEDICARE, SELFPAY | PROVIDERS: PCP Internal Medicine; Visit Provider Radiology Diagnostic Radiology | DX: M43.16 Spondylolisthesis, lumbar region (principal) | CPT/HCPCS: 72100 ==

== ENCOUNTER 2025-02-02 12:40 | Outpatient (REF) | payer MEDICARE, SELFPAY ==
--- OUTSIDE RECORDS SUMMARY | 2023-09-10 03:30 | XMS_ITS ---
Author Organization [facility] Address [address] [place] [address] Care Team Providers Care Pulp Mill Supervisor Name Role Phone Juan M Hernandez MD Primary Care Provider Un available Dae Marcelion Unavailable [phone] DONNELL Gonzalez Kasey Unavailable Unavailable REASON FOR VISIT screening,hx polyps,ulcerative rectosigmoiditis Problems Problem Type SNOMED Code ICD Code Onset Dates Problem Status W/U Status Risk Notes Problem History of polyp of colon (situation) (406090281) Personal history of colonic polyps (Z86.010) Active confirmed Problem Diverticular disease of colon (828526991) Diverticulosis of large intestine without perforation or abscess without bleeding (K57.30) Active confirmed Encounters Encounter Location Date Provider [place] [facility] [place] [address] [place] [phone] 09/10/2023 Dae Marcelino Ulcerative rectosigmoiditis without complication [...] NED BLISS FDOB: [birth year] (74 yo M)Acc No.[id number]:09/10/2023 COLON WITH MAC Patient: NED RODRIGUES Provider: Amalia Marcelino MD :1950 A ge:73 Y S ex:Male Date:09/10/2023 Address:[address] [place], [place] [phone] Pcp:Sonu Nix Subjective: * Chief Complaints: * [...] MD Date: 0 09/10/2023 Generated for Marly hobbs/Penny/Kathrynsmitting on: 1 01:15 PM EDT
--- OUTSIDE RECORDS SUMMARY | 2024-11-23 03:45 | XMS_ITS ---
Author Organization Jose Greer MD Address [address] [place] [phone] Care Team Providers Care Health Program Specialist Name Role Phone Jose Greer Primary Care Provider Results Component Value Reference Range Notes Complete Blood Count Auto Di ff Reviewed date:11/23/2024 05:00:06 PM Interpretation: Performing Lab:[facility], [address] [place] [phone] Notes/Report: White Blood Count 5.1 4.8-10.8 X10*3/uL [...] (Free>4and<10) Reviewed date:11/23/2024 12:32:06 PM Interpretation: Performing Lab:[facility], [address] [place] [phone] Notes/Report: PSA,Total (Free>4and<10) 2.48 0.00-4.00 ng/mL A [...] Location Date Provider Diagnosis Jose Greer MD [address] [place] [address] [place] [phone] 11/23/2024 Jose Percy Neutropenia D70.9 and Increased prostate specific antigen (PSA) velocity R97.20 Assessments Encounter Date Diagnosis (ICD Code) Assessment Notes Treatment Notes Treatment Clinical Notes Section Notes 11/23/2024 Neutropenia (ICD-10 - D70.9) 11/23/2024 Increased prostate specific antigen (PSA) velocity (ICD-10 - R97.20) Plan Of Treatment Next Appt Details Provider Name:Jose blevinsr, 02/05/2025 01:45:00 PM, [address] [place] [address], [address] [place] [address], [phone], Provider Name:Jose cowan, 04/09/2025 08:00:00 AM, [address] [place] [address], [address] [place] [address], [phone], Provider Name:Jose cowan, 04/16/2025 10:15:00 AM, [address] [place] [address], [address], [phone], Provider Name:Jose blevinsr, 10/23/2025 07:00:00 AM, [address] [place] [address], [address], [phone], Provider Name:Jose cowan, 10/30/2025 10:30:00 AM, [address] [place] [address], [address], [phone], Progress Notes * Mark RAYO FDOB: [birth year] (74 yo M)Acc No.[id number]:11/23/2024 Progress Note Patient: Mark RODRIGUES Provider: Jolie Greer MD :1950 A ge:74 Y S ex:Male Date:11/23/2024 Address:[address] [place], [place] [phone] Subjective: * Chief Complaints: * 1 . [...] 11/23/2024 Generated for Marly hobbs/Penny/Sherly on: 1 01:16 PM EDT
--- OUTSIDE RECORDS SUMMARY | 2025-01-08 05:45 | XMS_ITS ---
Author Organization Jose Greer MD Address [address] [place] [phone] Care Team Providers Care Filenet Architect Name Role Phone Jose Greer Primary Care Provider Allergies No Known Allergies Results Component Value Reference Range Notes XR lumbar spine 2-3V Reviewed date:01/08/2025 06:01:21 PM Interpretation: Performing Lab: Notes/Report: [address] [address] XRay Report Signed Patient: Mark Rayo MR#: [id number] : 1950 Acct:[id number] Age/Sex: 74 / M ADM Date: 01/08/25 Loc: HO.XRAY Attending Dr: Jose Greer MD Ordering Physician: Jose Greer MD Date of Service: 01/08/25 Procedure(s): XR lumbar spine 2-3V Accession Number(s): [id number] cc: Jose Greer MD Reason for Exam: [...] 01/08/25 1230 DD/ 1040 TD/TT: 01/08/25 1050 Day Habilitation Specialist: [place] [address] XRay Report Signed Patient: Walter Rayo MR#: [id number] : 1950 Acct:[id number] Age/Sex: 74 / M ADM Date: 01/08/25 Loc: HO.MARY Attending Dr: Jose Greer MD Ordering Physician: Jose Greer MD Date of Service: 01/08/25 Procedure(s): XR lum bar spine 2-3V Accession Number(s): [id number] cc: Jose Greer MD Reason for Exam: [...] 01/08/25 1230 DD/ 1040 TD/TT: 01/08/25 1050 Day Habilitation Specialist: REASON FOR VISIT back pain x 4 [...] Date Provider Diagnosis Jose P Bombardier MD [address] [place] [phone] 01/08/2025 Jose Greer Back pain M54.9 ; [...] adminstered Next Appt Details Provider Name:Jose cowan, 02/05/2025 01:45:00 PM, [address] [place] [address], [address], [phone], Provider Name:Jose cowan, 04/09/2025 08:00:00 AM, [address] [place] [address], [phone], Provider Name:Jose cowan, 04/16/2025 10:15:00 AM, [address] [place] [address], [phone], Provider Name:Jose cowan, 10/23/2025 07:00:00 AM, [address] [place] [address], [phone], Provider Name:Jose cowan, 10/30/2025 10:30:00 AM, [address] [place] [address], [address], [place], [place], [phone], Progress Notes * Mark RAYO FDOB: [birth year] (74 yo M)Acc No.[id number]:01/08/2025 Progress Notes Patient: Mark RODRIGUES Provider: Jolie Greer MD :1950 A ge:74 Y S ex:Male Date:01/08/2025 Address:[address] [place], [place] [phone] Subjective: * Chief Complaints: * B ack [...] 9 0662 FLU VACC PRSV FREE INC [id number] ADMN FLU VAC NO FEE SCHED SAME DAY * Preventive Medicine: Immunizations: I nfluenza H ave you had a flu shot since the most recent January 01? Y es. * * Sign off status: Completed true * Provider: Jolie Greer MD Date: 0 01/08/2025 Generated for Marly hobbs/Penny/eTmylesitting on: 1 01:14 PM EDT History and Physical Notes * [...]
--- OUTSIDE RECORDS SUMMARY | 2025-01-08 13:59 | XMS_ITS ---
Author Organization Jose Greer MD Address [address] [place] [phone] Care Team Providers Care Director Channel Name Role Phone Jose Greer Primary Care Provider Medications Medication SIG (Take, Route, Frequency, Duration) Notes Start Date End Date Status Atorvastatin Calcium 40 MG 1 tablet Oral ly Once a day for 30 days 01/08/2025 Active Encounters Encounter Location Date Provider Diagnosis Jose Greer MD [address] [place], [place] [phone] 01/08/2025 Jose Greer Plan Of Treatment Medication Medication Name Sig Start Date Stop Date Notes Atorvastatin Calcium 40 MG 1 tablet Oral ly Once a day for 30 days 01/08/2025 Next Appt Details Provider Name:Jose cowan, 02/05/2025 01:45:00 PM, [address], Suite [facility], [place], [place], [phone], Provider Name:Jose Coates ier, 04/09/2025 08:00:00 AM, [address], [address], [place], [place], [phone], Provider Name:Jose Coates ier, 04/16/2025 10:15:00 AM, [address] [place] [address] Drive, [address], [place], [place], [phone], Provider Name:Jose Coates ier, 10/23/2025 07:00:00 AM, [address] [place] [address] Drive, [address], [place], [place], [phone], Provider Name:Jose Coates ier, 10/30/2025 10:30:00 AM, [address] [place] [address], Suite [facility], [place], [place], [phone], Progress Notes * Mark RAYO FDOB: [birth year] (74 yo M)Acc No.[id number]:01/08/2025 Patient: Chaitanya RIVASBriceMark Len :1950 A ge:74 Y S ex:Male Address:[address] [place] [id number] * Refills Start Atorvastatin Calcium Tablet, 40 MG, Orally, 30, 1 tablet, Once a day, 30 days, Refills=5 * true * Date: Generated for Marly hobbs/Penny/Aaronitting on: 01:15 PM EDT
--- OUTSIDE RECORDS SUMMARY | 2025-01-15 10:00 | XMS_ITS ---
Author Organization Jose Greer MD Address [address] [place], [place] [phone] Care Team Providers Care Alumni Relations Coordinator Name Role Phone Jose Greer Primary Care Provider Allergies No Known Allergies Reason For Referral Reason lumbar disc disease Diagnosis 1 Lumbar disc disease with radiculopathy (M51.16) Referral Organization Jose Greer MD Referring Provider First Name Jose Referring Provider Last Name Percy Referring Provider Speciality Internal M edicine Referred Provider [facility] Referred Provider Specialty Physical Med icine General Notes Salud Lewis 0 01/16/2025 01:20:51 PM >info lesleyedDebbie Annette 01/22/2025 11:52:34 AM >appt being worked on was told to call next week Referral Priority Routine REASON FOR VISIT 1 week f/u back [...] Status W/U Status Risk Notes Problem Atherosclerosis (38565703) Atherosclerosis (I70.90) Active confirmed Vital Signs Blood pressure systolic 132 mm Hg 01/16/20 25 Blood pressure diastolic 66 mm Hg 025 Height 71 in 01/15/2025 Weight 199 lbs 01/15/2025 BMI 27.75 kg/m2 01/15/2025 weight is down 3 pounds [facility] e 01-08-25 Encounters Encounter Location Date Provider Diagnosis Jose Greer MD [address] [place] [address] [place] [phone] 01/15/2025 Jose Greer Atherosclerosis I70. 90 and Lumbar disc disease with radiculopathy M51.16 Assessments Encounter Date Diagnosis (ICD Code) Assessment Notes Treatment Notes Treatment Clinical Notes Section Notes 01/15/2025 Atherosclerosis (ICD-10 - I70.90) pending diagnostic testing 01/15/2025 Lumbar disc disease with radiculopathy (ICD-10 - M51.16) referral to [facility]/ orde faxed to [facility] deot Plan Of Treatment Treatment Notes Assessment Notes Atherosclerosis pending diagnostic t esting Lumbar disc disease with radiculopathy r eferral to [facility]/ orde faxed to [facility] CS deot Pending Test Test Name Order Date MR lumbar spine wo con 01/15/2025 Future Test Test Name Order Date Liver Panel 04/16/2025 Lipid Panel 04/16/2025 Referrals Referral Date Details 01/15/2025 01/15/2025, lumbar d isc disease, [facility] Next Appt Details Follow Up: 3 Weeks, Reason: Provider Name:Jose Coates ier, 02/05/2025 01:45:00 PM, [address] [place] [address] Drive, Suite [facility], [place], [place], [phone], Provider Name:Jose Coates ier, 04/09/2025 08:00:00 AM, [address] [place] [address], Suite [facility], [place], [place], [phone], Provider Name:Jose Coates ier, 04/16/2025 10:15:00 AM, [address] [place] [address], [address] [place] [address], [phone], Provider Name:Jose Coates ier, 10/23/2025 07:00:00 AM, [address] [place] [address], Suite [facility], [place], [place], [phone], Provider Name:Jose Coates ier, 10/30/2025 10:30:00 AM, [address] [place] [address], Suite [facility], [place], [place], [phone], Progress Notes * Mark RAYO FDOB: [birth year] (74 yo M)Acc No.[id number]:01/15/2025 Progress Notes Patient: Mark RODRIGUES Provider: Jolie Greer MD :1950 A ge:74 Y S ex:Male Date:01/15/2025 Address:[address] [place], [place] [phone] Subjective: * Chief Complaints: * 1 week [...] Denies S ore throat. R espiratory: Denies Ashtyn ough. D enies S hortness of breath [...] Notes: referral to [facility]/ orde faxed to [facility] deot ? Referral To:[facility] Physical Medicine Reason:lumbar disc disease * Procedure Codes: * Follow Up: 3 Weeks * * Sign off status: Completed true * Provider: Jolie Greer MD Date: 0 01/15/2025 Generated for Printi ng/Faevertong/eTransmitting on: 1 01:15 PM EDT History and Physical Notes * [...]
--- OUTSIDE RECORDS SUMMARY | 2025-01-22 05:46 | XMS_ITS ---
Author Organization Jose Greer MD Address [address] [place] [phone] Care Team Providers Care Inspector Plumbing Name Role Phone Jose Greer Primary Care Provider Medications Medication SIG (Take, Route, Frequency, Duration) Notes Start Date End Date Status hydroCHLOROthiazide 50 MG 1 tablet in th e morning Orally Once a day for 30 days 01/08/2025 Active Encounters Encounter Location Date Provider Diagnosis Jose Greer MD [address] [place] [phone] 01/22/2025 Jose Greer Leg edema R60.0 Assessments Encounter Date Diagnosis (ICD Code) Assessment Notes Treatment Notes Treatment Clinical Notes Section Notes 01/22/2025 Leg edema (ICD-10 - R60.0) Plan Of Treatment Medication Medication Name Sig Start Date Stop Date Notes hydroCHLOROthiazide 50 MG 1 tablet in th e morning Orally Once a day for 30 days 01/08/2025 Next Appt Details Provider Name:Jose Coates ier, 02/05/2025 01:45:00 PM, [address] [facility], [address], [place], [phone], Provider Name:Jose Coates ier, 04/09/2025 08:00:00 AM, [address] [place] [address], [address], [place], [phone], Provider Name:Jose Coates ier, 04/16/2025 10:15:00 AM, [address] [place] [address], [address], [place], [phone], Provider Name:Jose Coates ier, 10/23/2025 07:00:00 AM, [address] [place] [address], Suite [facility], [place], [phone], Provider Name:Jose Coates ier, 10/30/2025 10:30:00 AM, [address] [place] [address], Suite [facility], [place], [phone], Progress Notes * Makr RAYO FDOB: [birth year] (74 yo M)Acc No.[id number]:01/22/2025 Patient: Chaitanya SARTHAKDEENABrice Mark Harrington :1950 A ge:74 Y S ex:Male Address:[address] [place] [address] * Refills Refill hydroCHLOROthiazide Tablet, 50 MG, Orally, 30, 1 tablet in the morning, Once a day, 30 days, Refills=0 * true * Date: Generated for Marly hobbs/Penny/eTransmitting on: 1 01:15 PM EDT
--- NOTE | ~2025-02-02 | MR_ITS ---
EXAMINATION: MR LUMBAR SPINE WITHOUT CONTRAST CLINICAL INFORMATION: Disc disease with radiculopathy. Low back pain, right leg weakness and pain. COMPARISON: No prior MRI. Lumbar spine radiographs 01/08/2025. TECHNIQUE: Multiplanar multisequence MR imaging of the lumbar spine was done without IV contrast. Examination was performed on a 1.5 Camila Siemens magnet, utilizing standard sequences. FINDINGS: CORONAL ALIGNMENT: -There is a minimal levoconvex scoliosis, apex at L3. SAGITTAL ALIGNMENT: -There is a normal lumbar lordosis. -There is a 2 mm retrolisthesis of L2 on L3, and L3 on L4. -There is a 2 mm anterolisthesis of L4 on L5. -Alignment is otherwise anatomic. LUMBOSACRAL JUNCTION: -Normal. There are 5 esw-lzi-wbcjuwy lumbar-type vertebral bodies. VERTEBRAL BODIES/BONE MARROW: -There is no gross bone marrow edema, fracture, compression deformity, or abnormal infiltrating bone marrow signal. -There are no significant endplate changes. DISCS: -Mild diffuse loss of disc height and signal, most significant at L2-3 and L3-4. SPINAL CANAL: -No abnormal developmental findings. CONUS MEDULLARIS: -Terminates at L1. Morphology and signal is normal. INTRADURAL NERVE ROOTS: - Normally distributed within the thecal sac. No masses or clumping of the nerve roots. Axial Disc Space Images: T12-L1: There is no central canal or neural foraminal narrowing. L1-L2: Mild facet hypertrophic changes bilaterally. No significant central canal or neural foraminal narrowing. L2-L3: There is a diffuse bulging disc extending into both foraminal zones. There is a 2 mm retrolisthesis. There are mild to moderate hypertrophic degenerative facet changes bilaterally. There is posterior ligamentous thickening/infolding. Combination of findings is resulting in mild to moderate central canal stenosis, mild to moderate bilateral subarticular recess stenosis, and moderate right greater than left neural foraminal stenosis. L3-L4: There is a shallow concentric disc bulge extending into both foraminal zones. There are mild to moderate hypertrophic degenerative facet changes, with posterior ligamentous thickening/infolding. Findings are resulting in mild central canal stenosis, mild to moderate right greater than left subarticular recess stenosis, and moderate right greater than left neural foraminal stenosis. L4-L5: There is mild disc uncovering secondary to anterolisthesis. There is a concentric disc bulge extending into both foraminal zones. There are severe hypertrophic degenerative facet changes bilaterally, with prominent posterior ligamentous thickening/infolding. Combination of findings is resulting in severe central canal stenosis, severe subarticular recess stenosis bilaterally, with likely impingement of both traversing L5 nerve roots. There is moderate to severe left and severe right neural foraminal encroachment. There is likely impingement of the exiting right L4 nerve root. L5-S1: No significant disc bulging is present. Severe right and moderate to severe left hypertrophic degenerative facet changes are present, with minimal posterior ligamentous thickening/infolding. There is mild central canal stenosis, no significant subarticular recess stenosis, and mild bilateral neural foraminal narrowing. IMAGED SI JOINTS: -Mild degenerative arthritis bilaterally. PARAVERTEBRAL AND INCLUDED EXTRASPINAL SOFT TISSUES: -Aorta is nonaneurysmal. Imaged soft tissues are normal. There is diverticulosis of the sigmoid colon incidentally noted. MR/MR lumbar spine wo con IMPRESSION: 1. Mild to moderate multilevel lumbar spondylosis. There is severe central canal stenosis and lateral recess stenosis at L4-5, as well as severe right and moderate to severe left neural foraminal stenosis. See above for further details. Electronically signed by: Tom Cifuentes MD 02/02/2025 01:32 PM EDT
--- OUTSIDE RECORDS SUMMARY | 2025-02-02 13:16 | XMS_ITS | Patient Health Record ---
Author Organization Jose Greer MD Address [address] [place], [place] [id number] Care Team Providers Care Podiatric Surgeon Name Role Phone Jose Greer Primary Care Provider Allergies No Known Allergies Results Component Value Reference Range Notes Blood Urea Nitrogen Reviewed date:03/02/2024 12:35:00 PM Interpretation: Performing Lab:[address] [address] Notes/Report: Blood Urea Nitrogen 16 9-16 mg/dL Creatinine Reviewed date:03/02/2024 12:30:45 PM Interpretation: Performing Lab:[facility], [address] [place] [phone] Notes/Report: Creatinine 0.98 0.5-1.4 mg/dL Estimated Glomerular Filt Rate > 60 NOTE: For -[place] individuals, multiply the result by 1.210. Chronic Kidney Disease: Estimated GFR < 60 mL/min/1.73m2 Severe Kidney Disease: Estimated GFR < 15 mL/min/1.73m2 PSA,Total (Free>4and<10) Reviewed date:03/02/2024 12:38:14 PM Interpretation: Performing Lab:[facility], [address] [place] [phone] Notes/Report: PSA,Total (Free>4and<10) 2.94 0.00-4.00 ng/mL A [...] ff Reviewed date:10/17/2024 05:08:00 PM Interpretation: Performing Lab:[facility], [address] [place] [phone] Notes/Report: White Blood Count 3.9 4.8-10.8 X10*3/uL [...] 0.0-0.2 /100WBC Neutrophils Absolute Auto 2.0 2.0-8.3 x10*3/uL Imm Gran Abs Auto 0.00 0.00-0.03 X10*3/uL Lymphocytes Absolute Auto 1.3 1.2-4.9 X10*3/uL Monocytes Absolute Auto 0.5 0.1-1.2 X10*3/uL Eosinophils Absolute Auto 0.1 0.0-0.4 X10*3/uL Basophils Absolute Auto 0.0 0.0-0.2 X10*3/uL NRBC Abs Auto 0.000 0.0-0.012 X10*3/uL Comprehensive [place]. Panel Fa st Reviewed date:10/17/2024 05:09:10 PM Interpretation: Performing Lab:[facility], [address] [place] [phone] Notes/Report: Sodium 142 135-145 mmol/L Potassium 4.1 [...] Panel Reviewed date:10/17/2024 12:28:39 PM Interpretation: Performing Lab:[address] [phone] Notes/Report: Triglycerides 85 <150 mg/dL Desirable Triglyceride: [...] (Free>4and<10) Reviewed date:10/24/2024 12:21:50 PM Interpretation:10-24-2024 Performing Lab:[address] [address] Notes/Report: PSA,Total (Free>4and<10) 4.19 0.00-4.00 ng/mL PSA methodology: Coats Alinity i Chemiluminescent Microparticle Immunoassay (CMIA) Microalbumin, Random Reviewed date:10/17/2024 12:40:16 PM Interpretation: Performing Lab:[facility], [address] [place] [phone] Notes/Report: Creatinine Urine 336.81 Microalbumin Urine 18.0 Microalbum/Creatinine Ratio Ur 5.3 <30 ug/mg cr Albumin/Creatinine Ratio Reference Ranges: Normal: < 30 ug/mg creatinine Microalbuminuria: 30 - 300 ug/mg creatinine Clinical Albuminuria: > 300 ug/mg creatinine Hemoglobin A1c Reviewed date:10/17/2024 12:23:51 PM Interpretation: Performing Lab:[address] [address] Notes/Report: Hemoglobin A1c % 5.6 <6.0 % [...] average glucose, using the formula of the J1E-Einuisb Average Glucose study (ADAG), Diabetes Care, Vol.31,#8, Dec. 2007 UA ClnCatch+Micro w/rflx Cul t Reviewed date:10/17/2024 05:08:35 PM Interpretation: Performing Lab:[facility], [address] [place] [phone] Notes/Report: Urine, Clean Catch Color Urine Dark Yellow Appearance Urine Clear PH 5.5 5.0-9.0 Glucose Urine UA Negative Negative mg/dL Urine Blood Negative Negative Specific Steens - Urine >= 1.030 1.005-1.025 Urine Protein [...] ff Reviewed date:11/23/2024 05:00:06 PM Interpretation: Performing Lab:[facility], [address] [place] [phone] Notes/Report: White Blood Count 5.1 4.8-10.8 X10*3/uL [...] 0.0-0.2 /100WBC Neutrophils Absolute Auto 2.9 2.0-8.3 x10*3/uL Imm Gran Abs Auto 0.01 0.00-0.03 X10*3/uL Lymphocytes Absolute Auto 1.5 1.2-4.9 X10*3/uL Monocytes Absolute Auto 0.6 0.1-1.2 X10*3/uL Eosinophils Absolute Auto 0.1 0.0-0.4 X10*3/uL Basophils Absolute Auto 0.0 0.0-0.2 X10*3/uL NRBC Abs Auto 0.000 0.0-0.012 X10*3/uL PSA,Total (Free>4and<10) Reviewed date:11/23/2024 12:32:06 PM Interpretation: Performing Lab:[address] [phone] Notes/Report: PSA,Total (Free>4and<10) 2.48 0.00-4.00 ng/mL A [...] Coats Alinity i Chemiluminescent Microparticle Immunoassay (CMIA) XR lumbar spine 2-3V Reviewed date:01/08/2025 06:01:21 PM Interpretation: Performing Lab: Notes/Report: [address] [address] XRay Report Signed Patient: Mark Rayo MR#: [id number] : 1950 Acct:[id number] Age/Sex: 74 / M ADM Date: 01/08/25 Loc: [facility] Attending Dr: Jose Greer MD Ordering Physician: Jose Greer MD Date of Service: 01/08/25 Procedure(s): XR lumbar spine 2-3V Accession Number(s): [id number] cc: Jose Greer MD Reason for Exam: [...] 01/08/25 1230 DD/ 1040 TD/TT: 01/08/25 1050 Air Dispatcher: [place] [address] XRay Report Signed Patient: Walter Rayo MR#: [id number] : 1950 Acct:[id number] Age/Sex: 74 / M ADM Date: 01/08/25 Loc: HO.XRAY Attending Dr: Jose Greer MD Ordering Physician: Jose Greer MD Date of Service: 01/08/25 Procedure(s): XR lum bar spine 2-3V Accession Number(s): [id number] cc: Jose Greer MD Reason for Exam: LEVI K PAIN EXAMINATION: XR LUMBOSACRAL SPINE CLINICAL INFORMATION: BACK PAIN COMPARISON: None available. TECHNIQUE: Three views of the lumbosacral spine. FINDINGS: There are 5 nonrib-bearing lumbar segments. There is mild disc space narrowing throughout the lumbar spine. L2-3 demonstrates gr tracie 1 retrolisthesis. L3-4 demonstrates subtle retrolisthesis. There is facet sclerosis and osteophytes at L4-5 and L5-S1. Mild atherosclerotic ossification is present in the abdominal aorta. Subchondral sclerosi s is noted in the right greater than left SI joints. XR/XR lumbar spine 2-3V IMPRESSION: Multilevel degenerat bette disc disease and facet osteoarthritis. Mild SI joint degenerative changes. Electronically talib d by: Shelton Naidu MD 01/08/2025 12:30 PM EDT RP Dictated By: Shelton Naidu MD Signed By: <Electronically signed by Shelton Naidu MD in OV> 01/08/25 1230 DD/ 1040 TD/TT: 01/08/25 1050 Air Dispatcher: MR dove LT wo/w con Reviewed date:03/14/2024 12:47:55 PM Interpretation: Performing Lab: Notes/Report: [place] [address] Magnetic Resonance Report Signed Patient: Mark Rayo MR#: [id number] : 1950 Acct:[id number] Age/Sex: 73 / M ADM Date: 03/14/24 Loc: HO.MRI Attending Dr: Arnie Jerez MD Ordering Physician: Arnie Jerez MD Date of Service: 03/14/24 Procedure(s): MR dove LT wo/w con Accession Number(s): [id number] cc: Jose Greer MD; Arnie Jerez MD EXAMINATION: HUMERUS WITHOUT AND WITH CONTRAST, LEFT CLINICAL [...] by: Joe Shrestha MD 03/14/2024 12:33 PM [facility] Dictated By: Joe Shrestha MD Signed By: <Electronically signed by Joe Shrestha MD in OV> 03/14/24 1233 DD/ 1124 TD/TT: 03/14/24 1154 Air Dispatcher: [place] [address] Magnetic Resonance Report Signed Patient: Walter Rayo MR#: [id number] : 1950 Acct:[id number] Age/Sex: 73 / M ADM Date: 03/14/24 Loc: HO.MRI Attending Dr: Devi Vallejo MD Ordering Physician: Arnie Jerez MD Date of Service: 03/14/24 Procedure(s): MR humerus LT wo/w con Accession Number(s): [id number] cc: Jose Greer MD; Arnie Jerez MD EXAMINATION: MR HUMERUS WITHOUT A ND WITH CONTRAST, LEFT CLINICAL INFORMATION: Palpable lump in the region of the left triceps. No recent injury. COMPARISON: None available. TECHNIQUE: MRI of the left jes timi was performed before and after the intravenous [...] there is an encapsulated, fat signal lesion measur ing approximately 2.4 x 3.7 x 6.3 cm, [...] humerus LT wo/w con IMPRESSION: 1. 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 No soft tissue component or postcontrast enhancement to suggest a more aggressive lesion. 2. No acute osseous abnormality. Electronically talib d by: Joe Shrestha MD 03/14/2024 12:33 PM [facility] Workstation: [id number] Dictated By: Joe Shrestha MD Signed By: <Electronically signed by Joe Shrestha MD in OV> 03/14/24 1233 DD/ 1124 TD/TT: 03/14/24 1154 Air Dispatcher: Pathology Reviewed date:05/09/2024 12:54:15 PM Interpretation: Performing Lab:[facility], [address] [place] [phone] Notes/Report: --- Name: Mark Rayo Age/Sex: 73/M : 1950 Unit#: [id number] Attend Dr: Arnie Jerez MD Re04/21/24 Status : [facility] Location: [facility] Disch: --- SPEC : [id number] RECD : 04/21/24028 STATUS: MAYE MORE NUM: [id number] DARIA: 04/21/24-[address]: Arnie Jerez MD ENTERED: 04/21/24 SP TYPE: Surgical OTHR DR: Jose Greer MD ORDERED: Gross Micro L3 COMMENTS: Block A2 s ent to [facility] for MDMS by FISH on 04/27/24. Addendum Addendum 1 Entered: 05/08/24 MDM2 FISH analysis (Verimatrix): Results: Negative Interpretation: MDM2 signals/nucleus : 1.9 CEN12 signals/nucleu s: 1.9 MDM2/CEN12 signal ratio: 1.0 Number of observers: 1 The MDM2 to CEN12 ra burton of <2.0 is a normal result. See entire report in the EMR ? reports/pathology section as a scanned report (camera icon). There is no evidence of atypical lipomatous tumor. Addendum Signed (signature on file) Ana Corin 05/08/241835 --- Diagnosis Soft tissue, left tricep intramuscular, excision: Mature lobular adipose tissue with skeletal muscle, consistent with intramuscular lipoma (see comment). Comment: As the lesi on is deep/intramuscular, MDM2 testing is pending; report to follow. Clinical History Benign lipomatous neoplasm Microscopic Description Microscopic sections reviewed. CONTINUED ON NEXT PAGE --- Name: Mark Rayo Age/Sex: 73/M : 1950 Unit#: [id number] Attend Dr: Arnie Jerez MD Re04/21/24 Status : [facility] Location: [facility] Disch: --- SPEC : [id number] RECD : 04/21/24 STATUS: MAYE MORE NUM: [id number] DARIA: 04/21/[address]: Arnie Jerez MD ENTERED: 04/21/24 TYPE: Surgical OTHR DR: Jose Greer MD ORDERED: Gross Micro L3 COMMENTS: Block A2 s ent to [facility] for MDMS by FISH on 04/27/24. Material [...] fleshy, hemorrhagic or necrotic foci are identified. Dimethylaniline Sulfator Operator sections are submitted in cassettes A1-A3. CEDS Copies To: Jose Greer MD [facility] [address] [phone] Arnie Jerez MD [facility] [address] [place], [place] [id number] [email or web address] [place] --- Signed (signature on file) Ana Rowe 04/27/24 1126 --- END OF REPORT PSA Free and Total Reviewed date:10/18/2024 07:29:23 PM Interpretation: Performing Lab:[facility], [address] [place] [phone] Notes/Report: Prostate Specific Ag Total 3.5 < OR = 4.0 ng/mL Percent Free Prostate Spec Ag 29 >25 % (calc) PSA(ng/mL) Free PSA(%) Estimated(x) Probability of Cancer(as%) 0-2.5 (*) Approx. 1 2.6-4.0(1) 0-27(2) 24(3) 4.1-10(4) 0-10 56 11-15 28 16-20 20 21-25 16 >or =26 8 >10(+) N/A >50 References:(1)Ayana you et al.:Urology 60: 469-474 (2002) (2)Otf et al.:J.Urol 168: 922-925 (2002) Free PSA(%) Sensitivity(%) Specificity(%) < or = 25 85 19 < or = 30 93 9 (3)Otf et al.:JANIE 277: 5028-0993 (1997) (4)Otf et al.:JANIE 279: 6142-3451 (1998) (x)These estimates vary with age, ethnicity, family [...] mind. PSA was performed using the Aniya Melrose Immunoassay method. Values obtained from different assay methods cannot be used interchangeably. PSA levels, regardless of value, should not be interpreted as absolute evidence of the presence or absence of disease. THIS TEST WAS PERFORMED AT: [facility] [address] [place] [phone] HONORIO MORSE MD Free Prostate Spec Ag 1.0 Urine Culture Reviewed date:10/18/2024 07:35:13 PM Interpretation: Performing Lab:[facility], [address] [place] [phone] Notes/Report: Urine Culture Report Result Urine Culture < 10,000 cfu/ml Reason For Referral Reason lumbar disc disease Diagnosis 1 Lumbar disc disease with radiculopathy (M51.16) Referral Organization Jose Greer MD Referring Provider First Name Jose Referring Provider Last Name Percy Referring Provider Speciality Internal M edicine Referred Provider [facility] Referred Provider Specialty Physical Med icine General Notes Salud Lewis 0 01/16/2025 01:20:51 PM >info faxed, Salud Lewis 01/22/2025 11:52:34 AM >appt being worked on was told to call next week Referral Priority Routine Medications Medication SIG (Take, Route, Frequency, Duration) Notes Start Date End Date Status Canasa 1000 MG 1 suppository at bedtime Rectal Once a day for 30 day(s) Active Diclofenac 35 MG 1 capsule as needed Orally Three times a day Active hydroCHLOROthiazide 50 MG 1 tablet in th e morning Orally Once a day for 30 days 01/08/2025 Active Albuterol Sulfate HFA 108 (90 Base) MCG/ACT 2 puffs as needed Inhalation every 4 hrs Active Atorvastatin Calcium 40 MG 1 tablet Orally Once a day for 30 days 01/08/2025 Active Soma 250 MG 1 tablet as needed Orally PRN Not-Taking HYDROcodone-Acetaminophen 5-325 MG 1 tablet as needed Orally every 6 hrs as needed for 10 days Partial Fill upon Patient Request 01/08/2025 Active buPROPion HCl ER (Smoking Det) 150 MG 1 tablet Orally once a day Active Balsalazide Disodium 750 MG 3 capsules Orally BID for 30 day(s) Active Cyclobenzaprine HCl 5 MG 1 tablet at bedtime as needed Orally Once a day Active Ocuvite Adult 50+ Orally Ac tive Immunizations Vaccine Route Administration Date Status Comme nts Flu Vaccine IM Intramuscular 02/02/2011 Administered Flu Vaccine IM Intramuscular 03/07/2012 Administered Flu Vaccine Unknown 02/01/2013 Administered Flu Vaccine Unknown 03/06/2014 Administered [facility] PPSV23 (Pnemovax) IM Intramuscular 05/18/2014 Administered TDaP IM Intramuscular 06/05/2014 Administered Flu Vaccine IM Intramuscular 02/21/2015 Administered pt re cieved the high dose flu at [facility] in [place]. 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 Problem 49529924 Degeneration of cervical intervertebral disc (M50.30) Active confirmed Problem Atherosclerosis (87164948) Atherosclerosis (I70.90) Active confirmed Problem 938618772 Pure hypercholesterolemia (E78.00) Active confirmed Problem 353736044 Increased prosta te specific antigen (PSA) velocity (R97.20) Active confirmed Vital Signs Blood pressure diastolic 66 mm Hg 01/15/2025 jessica ght is down 3 pounds since 01-08-25 Height 71 in 01/15/2025 weight is down 3 pounds since 01-08-25 Blood pressure systolic 132 mm Hg 01/15/2025 weig ht is down 3 pounds since 01-08-25 Weight 199 lbs 01/15/2025 weight is down 3 pounds since 01-08-25 BMI 27.75 kg/m2 01/15/2025 weight is down 3 pounds since 01-08-25 Encounters Encounter Location Date Provider Diagnosis Jose Greer MD [address] [place] [id number] 03/02/2024 Jose Greer Erectile dysfunction N52.9 ; Elevated BUN R79.9 and Rising PSA level R97.20 Jose Greer MD [address] [place] [id number] 10/17/2024 Jose Greer Blood tests for rout ine general physical examination Z00.00 ; Prediabetes R73.09 ; Pure hypercholesterolemia E78.00 and Increased prostate specific antigen (PSA) velocity R97.20 Jose Greer MD [address] [place] [id number] 10/24/2024 Jose Greer Elevated PSA R97.20 and Neutropenia D70.9 Jose Greer MD [address] [place] [id number] 11/23/2024 Jose Greer Neutropenia D70.9 an d Increased prostate specific antigen (PSA) velocity R97.20 Jose Greer MD [address] [place] [id number] 03/09/2024 Jose Greer Elevated BUN R79.9 ; Rising PSA level R97.20 and Mass of left upper extremity R22.32 Jose Greer MD [address] [place] [id number] 10/17/2024 Jose Greer Cellulitis L03.90 Jose Greer MD [address] [id number] 01/08/2025 Jose Greer Back pain M54.9 ; Le g edema R60.0 and Encounter for administration of vaccine Z23 Jose Greer MD [address] [place] [id number] 01/15/2025 Jose Greer Atherosclerosis I70. 90 and Lumbar disc disease with radiculopathy M51.16 Jose Greer MD [address] [place] [id number] 01/08/2025 Jose Gre[address] [place] [id number] 01/22/2025 Jose Greer Leg edema R60.0 Assessments [...] undrstanding of medication and directions for use 01/08/2025 Back pain (ICD-10 - M54.9) patient verbalized understanding of medication and directions for use, X-ray order given to patient 01/08/2025 Leg edema (ICD-10 - R60.0) is probably from the nsaid, will continue to monitor 01/15/2025 Atherosclerosis (ICD -10 - I70.90) pending diagnostic testing 01/15/2025 Lumbar disc disease with radiculopathy (ICD-10 - M51.16) referral to PSS[facility]/ [place] [facility] 01/22/2025 Leg edema (ICD-10 - R60.0) 03/02/2024 Rising PSA level (ICD-10 - R97.20) 10/17/2024 Prediabetes (ICD-10 - R73.09) 11/23/2024 Increased prostate specific antigen (PSA) velocity (ICD-10 - R97.20) 03/09/2024 Mass of left upper extremity (ICD-10 - R22.32) going to get mri and follow up with dr jerez 01/08/2025 Encounter for administration of vaccine (ICD-10 - Z23) HD flu vaccine adminstered 10/17/2024 Pure hypercholesterolemia (ICD-10 - E78.00) 10/17/2024 Increased prostate specific antigen (PSA) velocity (ICD-10 - R97.20) Plan Of Treatment Pending Test Test Name Order Date Electrocardiogram (EKG) 08/04/2018 Electrocardiogram (EKG) 07/23/2017 CBC (INCLUDES DIFF/PLT) 02/02/2011 XR CHEST 2 VIEW PA & LAT 04/13/2022 Complete Blood Count Auto Diff PSA,Total (Free>4and<10) 10/24/2024 MR lumbar spine wo con 01/15/2025 Next Appt Details Provider Name:Jose Coates ier, 02/05/2025 01:45:00 PM, [address] [place] [address], Suite [facility], [place], [phone], Provider Name:Jose Coates ier, 04/09/2025 08:00:00 AM, [address] [place] [address], Suite [facility], [place], [phone], Provider Name:Jose Coates ier, 04/16/2025 10:15:00 AM, [address] [place] [address], Suite [facility], [place], [place], [phone], Provider Name:Jose Coates ier, 10/23/2025 07:00:00 AM, [address] [place] [address], Suite [facility], [place], [place], [phone], Provider Name:Jose Coates ier, 10/30/2025 10:30:00 AM, [address] [place] [address], Suite [facility], [place], [place], [phone], Insurance Providers Payer Name Payer Address Payer Phone Subscriber Number Group Number Insured Name Patient Relationship to Insured Coverage Start Date Coverage End Date [employer] [address] [place] [address] [id number] Mark Rayo Self - patient is the insured [facility] [place], [place] [id number] Mark Rayo Self - patient is the insured Medical (General) History Medical History History ICD Code colonoscopy 10/2006 due in ; colonoscopy done 06/11/[address] Marcelino (repeat 5 yrs)09/10/23 colonoscopy repeat 3y 09/02/20 Colonoscopy completed, due 3 2023
--- OUTSIDE RECORDS SUMMARY | 2025-02-02 13:16 | XMS_ITS | Patient Health Record ---
Author Organization [facility] Address [address] [place] [address] Care Team Providers Care Roll Cleaner Name Role Phone Juan M Hernandez MD Primary Care Provider Un available Dae Marcelino Unavailable [phone] DONNELL Gonzalez Kasey Unavailable Unavailable Allergies No [...] Problem Status W/U Status Risk Notes Problem 834914939 Colon cancer screening (Z12.11) Active confirmed Problem 248431411 Encounter for screening for malignant neoplasm of colon (Z12.11) Active confirmed Problem 859024135 History of adenomatous polyp of colon (Z86.010) Active confirmed Problem History of polyp of colon (situation) (196550506) Personal history of colonic polyps (Z86.010) Active confirmed Problem Diverticular disease of colon (642515926) Diverticulosis of large intestine without perforation or abscess without bleeding (K57.30) Active confirmed Problem Screening for malignant neoplasm of rectum (562899892) Encounter for screening for malignant neoplasm of rectum (Z12.12) Active confirmed Problem 741003445 History of colon polyps (Z86.010) Active confirmed Problem 06497231 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 [place] [address] [id number] NED BLISS Self - patient is the insured Medical (General) History Medical History History ICD Code Ulcerative colitis-dx'd in 10/2006-involv ed the rectum and sigmoid colon Denies DE,DM,CVA,Lung disease,renal dise ase Herniated cervical spine disc [...]
== END 2025-02-02 12:41 | disposition home or self-care (01) ==
LOC: HO.MRI 12:40
PROVIDERS: PCP Internal Medicine; Visit Provider Internal Medicine
DX: M51.16 Intervertebral disc disorders with radiculopathy, lumbar region (principal)
CPT/HCPCS: 72148

== ENCOUNTER → 2025-02-02 12:40 | Outpatient (BNV) | payer MEDICARE, SELFPAY | PROVIDERS: PCP Internal Medicine; Visit Provider Radiology Diagnostic Radiology | DX: M47.816 Spondylosis without myelopathy or radiculopathy, lumbar region (principal); M99.62 Osseous and subluxation stenosis of intervertebral foramina of thoracic region | CPT/HCPCS: 72148 ==

== ENCOUNTER 2025-04-09 11:13 | Outpatient (REF) | payer MEDICARE, OTHER, SELFPAY ==
[2025-04-09 11:35] LABS: Alanine Aminotransferase 41 U/L (0-40); Albumin Level 4.5 g/dL (3.5-5.0); Alkaline Phosphatase 59 U/L (39-117); Aspartate Amino Transferase 40 U/L (5-37); Cholesterol 125 mg/dL (<200); HDL Cholesterol 42 mg/dL (>40); Total Protein 7.4 g/dL (6.5-8.0); Triglycerides 54 mg/dL (<150)
== END 2025-04-09 11:14 | disposition home or self-care (01) ==
LOC: HO.LNP 11:13
PROVIDERS: Visit Provider Internal Medicine
DX: I70.90 Unspecified atherosclerosis (principal)
CPT/HCPCS: 80061; 80076

== ENCOUNTER 2025-04-17 10:50 | Outpatient (AMB) | payer MEDICARE, SELFPAY ==
--- OUTSIDE RECORDS SUMMARY | 2024-10-24 05:30 | XMS_ITS ---
Author Organization Jose Greer MD Address [address] [place] [phone] Care Team Providers Care Rn Travel Name Role Phone Jose Greer Primary Care Provider Allergies No Known Allergies REASON FOR VISIT comp visit/ must see PSA Medications Medication SIG (Take, Route, Frequency, Duration) Notes Start Date End Date Status Cephalexin 500 MG 1 capsule Orally 3 times a day for 10 days 10/17/2024 Active Canasa 1000 MG 1 suppository at bedtime Rectal Once a day for 30 day(s) Active Albuterol Sulfate HFA 108 (90 Base) MCG/ACT 2 puffs as needed Inhalation every 4 hrs Active Soma 250 MG 1 tablet as needed Orally PRN Not-Taking Diclofenac 35 MG 1 capsule as needed Orally Three times a day Active Balsalazide Disodium 750 MG 3 capsules Orally BID for 30 day(s) Active buPROPion HCl ER (Smoking Det) 150 MG 1 tablet Orally once a day Active Ocuvite Adult 50+ Orally Ac tive Cyclobenzaprine HCl 5 MG 1 tablet at bed time as needed Orally Once a day Active Social History Tobacco Use: Social History Observation Description Date Details (start date - stop date) Former Smoker NA - NA Tobacco Use/Smoking Question Answer Notes Patient is [...] Never (0 point) Points 1 Interpretation Negative Problems Problem Type SNOMED Code ICD Code Onset Dates Problem Status W/U Status Risk Notes Problem Neutropenia (435313046) Neutropenia (D70.9) Active confirmed Vital Signs Blood pressure systolic 162 mm Hg 10/25/19 25 Blood pressure diastolic 70 mm Hg 025 Height 71 in 10/24/2024 Weight 202 lbs 10/24/2024 BMI 28.17 kg/m2 10/24/2024 Encounters Encounter Location Date Provider Diagnosis Jose Greer MD [address] [place] [address] [place] [phone] 10/24/2024 Jose Greer Elevated PSA R97.20 and Neutropenia D70.9 Assessments Encounter Date Diagnosis (ICD Code) Assessment Notes Treatment Notes Treatment Clinical Notes Section Notes 10/24/2024 Elevated PSA (ICD-10 - R97.20) is slighlty higher than expected. will repeat and if it doesn't decrease will refer to urology 10/24/2024 Neutropenia (ICD-10 - D70.9) a little bit lower than previously/ will repeat when we do the repeat psa Plan Of Treatment Treatment Notes Assessment Notes Elevated PSA is slighlty higher t mcnally expected. will repeat and if it doesn't decrease will refer to urology Neutropenia a little bit lower t mcnally previously/ will repeat when we do the repeat psa Pending Test Test Name Order Date Complete Blood Count Auto Diff 5 PSA,Total (Free>4and<10) 10/24/2024 Next Appt Details Follow Up: 6 Months, Reason: Provider Name:Jose Coates ier, 10/23/2025 07:00:00 AM, [address], [address], [place], [place], [phone], Provider Name:Jose Coates ier, 10/30/2025 10:30:00 AM, [address], [address], [place], [place], [phone], Progress Notes * Mark RAYO FDOB: [birth year] (74 yo M)Acc No.[id number]:10/24/2024 Patient: Mark RODRIGUES Provider: Jolie Greer MD :1950 A ge:74 Y S ex:Male Date:10/24/2024 Address:[address] [place] [address] Subjective: * Chief Complaints: * 1 . comp visit/ must see PSA. * HPI: D epression Screening: PHQ-9 L ittle interest or pleasure in doing things N ot at all, F eeling down, depressed, or hopeless N ot at all, T rouble falling or staying asleep, or sleeping too much N ot at all, F eeling tired or having little energy N ot at all, P oor appetite or overeating N ot at all, F eeling bad about yourself or that you are a failure, or have let yourself or your family down N ot at all, T rouble concentrating on things, such as reading the newspaper or watching television N ot at all, M oving or speaking so slowly that other people could have noticed; or the opposite, being so fidgety or restless that you have been moving around a lot more than usual N ot at all, T houghts that you would be better off or of hurting yourself in some way N ot at all, T otal Score 0 . I nterpretation and Intervention D epression Screening Findings N egative, F ollow-Up for Depression : review of PHQ-9 found negative result, no follow-up needed. C ommunication Needs: Communication Needs D oes the patient have a hearing impairment N o, D oes the patient have a vision impairment? Y es, I f yes, what is the vision impairment? G lasses, D oes the patient have a cognition impairment? N o. F all Risk: History H ave you had any falls with injury in the past year? Y es tripped up a step reaching for keys landed on concrete on hands and knees ,, no ER visit, H ave you had two or more falls in the past year? N o. S RAO Questions: SDOH Questions I n the past year have you been worried about losing housing? N o, I n the past year have you or any family members you live with been unable to get any of the following when it was really needed? Check all that apply: N one. S ymptom(s): patient is a 74 yo male here for visit with review of recent labs and follow up of chronic issues. * ROS: G eneral/Constitutional: Change in appetite d enies. C hills d enies. F ever d enies. O phthalmologic: Blurred vision d enies. D ischarge d enies. P ain d enies. E NT: Decreased hearing d enies. S ore throat d enies.?Swollen glands d enies. E ndocrine: Cold intolerance d enies. E xcessive thirst d enies. H eat intolerance d enies. W eight loss d enies. R espiratory: Cough d enies. S hortness of breath at rest d enies. S hortness of breath with exertion d enies. W heezing d enies. C ardiovascular: Chest pain at rest d enies. C hest pain with exertion?denies. I rregular heartbeat d enies. S hortness of breath d enies. ? G astrointestinal: Abdominal pain d enies. C hange in bowel habits d enies. D iarrhea d enies. N ausea d enies. R ectal bleeding d enies. V omiting d enies . G enitourinary: Blood in urine d enies. D ifficulty urinating d enies. F requent urination d enies. M usculoskeletal: Painful joints d enies. W eakness d enies. ? S kin: Dry skin d enies. I tching d enies. D enies?Mole(s), changes in moles, new moles or any lesions of concern. D enies P hotosensitivity. R pramod d enies. N eurologic: Dizziness d enies. F ainting d enies. H eadache?denies. * Medical History: c olonoscopy 10/2006 due in 2014; colonoscopy done 06/11/[address] Marcelino (repeat 5 yrs)09/10/23 colonoscopy repeat 3y, 09/02/20 Colonoscopy completed, due 3 yrs 2023. * Family History: F ather: 90 yrs, cerebrovascular disease, melanoma. M other: 68 yrs, uterine cancer. P aternal uncle: alive, melanoma. 1 sister(s) . 2 daughter(s) . . Father- CVA Mother - ovarian cancer, Denies mental health/substance abuse family history 1 brother 59, No pertinent family medical history, No pertinent family medical history. * Social History: T obacco Use: T obacco Use/Smoking P atient is a f ormer smoker, H ow long has it been since you last smoked? > 10 years, A dditional Findings: Tobacco Non-User F ormer smoker, currently using no form of tobacco. D rugs/Alcohol: A lcohol Screen D id you have a drink containing alcohol in the past year? Y es, H ow often did you have a drink containing alcohol in the past year? M onthly or less (1 point), H ow many drinks did you have on a typical day when you were drinking in the past year? 1 or 2 drinks (0 point), H ow often did you have 6 or more drinks on one occasion in the past year? N ever (0 point), P oints 1 , I nterpretation N egative. M iscellaneous: C affeine: yes, frequency:, 1-2 cups per day, half decaf and regular. Children: yes. Community involvements: no. Exercise: yes, mows the lawn. Housing: owning. Living with: spouse. Marital status: . Occupation: retired. Pets: none. Travel outside of the [place]: yes, [place]. * Medications: T aking Cyclobenzaprine HCl 5 MG Tablet 1 tablet at bedtime as needed Orally Once a day , Taking Ocuvite Adult 50+ Capsule Orally , Taking buPROPion HCl ER (Smoking Det) 150 MG Tablet Extended Release 12 Hour 1 tablet Orally once a day , Taking Balsalazide Disodium 750 MG Capsule 3 capsules Orally BID , Taking Albuterol Sulfate HFA 108 (90 Base) MCG/ACT Aerosol Solution 2 puffs as needed Inhalation every 4 hrs , Taking Canasa 1000 MG Suppository 1 suppository at bedtime Rectal Once a day , Taking Cephalexin 500 MG Capsule 1 capsule Orally 3 times a day , Taking Diclofenac 35 MG Capsule 1 capsule as needed Orally Three times a day , Not-Taking/PRN Soma 250 MG Tablet 1 tablet as needed Orally PRN , Medication List reviewed and reconciled with the patient * Allergies: N .K.D.A. Objective: * Vitals: H t: 71, Wt: 202, BMI:28.17, BP:162/70, Repeat BP:120/82, Wt-k.63. * P ast Orders: L ab:Microalbumin, Random (Order Date - 10/17/2024) (Collection Date & Time - 10/17/2024 07:30 AM) Value Reference Range Creatinine Urine 336.81 - mg/dL Microalbumin Urine 18.0 - mg/L Microalbum Creatinine Ratio Ur 5.3 <30 - ug/ mg cr L ab:Hemoglobin A1c (Order Date - 10/17/2024) (Collection Date & Time - 10/17/2024 07:30 AM) Value Reference Range Hemoglobin A1c % 5.6 <6.0 - % Estimated Average Glucose 114 - mg/dL L ab:UA ClnCatch+Micro w/rflx Cult (Order Date - 10/17/2024) (Collection Date & Time - 10/17/2024 07:30 AM) Value Reference Range Color Urine Dark Yellow - Appearance Urine Clear - PH 5.5 5.0-9.0 - Glucose Urine UA Negative Negative - mg/dL Urine Blood Negative Negative - Specific [place] - Urine >= 1.030 H 1.005-1.025 - Urine Protein Trace Neg-Trace - mg/dL Urine Ketones Trace Negative - mg/dL Nitrite Urine Negative Negative - Leukocyte Esterase Urine Small (1+) A Negative - RBC Urine 0-2 0-2 - /HPF WBC Urine 11-20 A 0-5 - /HPF Squamous Epithelial Cell Urine 0-2 0-2 - /HP F Bacteria Urine None Seen None Seen - Hyaline Casts Urine 0-2 0-2 - /LPF L ab:PSA Free and Total (Order Date - 10/17/2024) (Collection Date & Time - 10/17/2024 10:58 AM) Value Reference Range Prostate Specific Ag Total 3.5 < OR = 4.0 - ng/mL Percent Free Prostate Spec Ag 29 >25 - % (c alc) Free Prostate Spec Ag 1.0 - ng/mL L ab:Complete Blood Count Auto Diff (Order Date - 10/17/2024) (Collection Date & Time - 10/17/2024 07:30 AM) Value Reference Range White Blood Count 3.9 L 4.8-10.8 - X10*3/uL Red Blood Count 4.76 4.60-5.80 - X10*6/uL Hemoglobin 14.8 14.0-18.0 - g/dl Hematocrit 43.6 42.0-52.0 - % Mean Corpuscular Volume 91.6 80.0-98.0 - fL Mean Corpuscular Hemoglobin 31.1 27.0-33.0 - pg Mean Corpuscular HGB Conc 33.9 31.0-36.0 - g/ dl Red Cell Distribution Width 12.8 11.0-16.0 - % Platelet Count 280 160-400 - X10*3/uL Mean Platelet Volume 10.5 9.4-12.4 - fL Neutrophils Percent Auto 51.3 45-73 - % Imm Gran Pct Auto 0.0 0.0-0.4 - % Lymphocytes Percent Auto 33.1 20-40 - % Monocytes Percent Auto 12.8 H 2-11 - % Eosinophils Percent Auto 2.3 0-4 - % Basophils Percent Auto 0.5 0-2 - % NRBC Pct Auto 0.0 0.0-0.2 - /100WBC Neutrophils Absolute Auto 2.0 2.0-8.3 - x10* 3/uL Imm Gran Abs Auto 0.00 0.00-0.03 - X10*3/uL Lymphocytes Absolute Auto 1.3 1.2-4.9 - X10* 3/uL Monocytes Absolute Auto 0.5 0.1-1.2 - X10*3/ uL Eosinophils Absolute Auto 0.1 0.0-0.4 - X10* 3/uL Basophils Absolute Auto 0.0 0.0-0.2 - X10*3/ uL NRBC Abs Auto 0.000 0.0-0.012 - X10*3/uL L ab:Comprehensive [place]. Panel Fast (Order Date - 10/17/2024) (Collection Date & Time - 10/17/2024 07:30 AM) Value Reference Range Sodium 142 135-145 - mmol/L Bilirubin Total 0.7 0.0-1.0 - mg/dL Aspartate Amino Transferase 28 5-37 - U/L Alanine Aminotransferase 21 0-40 - U/L Total Protein 8.0 6.5-8.0 - g/dL Albumin Level 4.7 3.5-5.0 - g/dL Alkaline Phosphatase 49 39-117 - U/L Potassium 4.1 3.3-5.1 - mmol/L Chloride 108 96-108 - mmol/L Carbon Dioxide 29 22-29 - mmol/L Anion Gap 9 L 12-20 - Blood Urea Nitrogen 22 H 9-16 - mg/dL Creatinine 0.99 0.5-1.4 - mg/dL Estimated Glomerular Filt Rate > 60 - Glucose Fasting 92 60-99 - mg/dL Calcium 9.5 8.4-10.2 - mg/dL L ab:Urine Culture (Order Date - 10/17/2024) (Collection Date & Time - 10/17/2024) Value Reference Range Urine Culture < 10,000 cfu/ml - L ab:Lipid Panel (Order Date - 10/17/2024) (Collection Date & Time - 10/17/2024 07:30 AM) Value Reference Range Triglycerides 85 <150 - mg/dL Cholesterol 178 <200 - mg/dL LDL Cholesterol Calculated 119 H <100 - mg/dL HDL Cholesterol 42 >40 - mg/dL * Examination: G eneral Examination: GENERAL APPEARANCE: w ell developed, well nourished, in no acute distress. HEAD: n ormocephalic, atraumatic. EYES: p upils equal, round, reactive to light and accommodation, sclera non-icteric. EARS: n ormal. ORAL CAVITY: m ucosa moist. THROAT: c lear. NECK/THYROID: n elza supple, full range of motion, no cervical lymphadenopathy, no bruits. SKIN: w arm and dry, no suspicious lesions. HEART: r egular rate and rhythm, S1, S2 normal, no murmurs.? LUNGS: c lear to auscultation bilaterally. ABDOMEN: s oft, nontender, nondistended, bowel sounds present, normal, no organomegaly , no masses palpable. RECTAL EXAM: n ormal tone, no external hemorrhoids, no masses palpable, prostate normal, stool guaiac negative. MALE GENITOURINARY: n o testicular mass, testes descended bilaterally. EXTREMITIES: n o clubbing, cyanosis, or edema. NEUROLOGIC: n onfocal, motor strength normal upper and lower extremities, sensory exam intact. Assessment: * Assessment: 1. E levated PSA - R97.20 (Primary) 2 . N eutropenia - D70.9 ? Plan: * Treatment: 2. N eutropenia L AB: Complete Blood Count Auto Diff Notes: a little bit lower than previously/ will repeat when we do the repeat psa * Preventive Medicine: Counseling: C are goal follow-up plan: C kainnseling for abnormal BMI provided?Yes, Opal collins Normal BMI Follow-up G iving encouragement to exercise. * Follow Up: 6 Months * * The named appointment provid er may or may not be the originator of this progress note, and it is not deemed complete until electronically signed by the appointment provider. Sign off status: Pending * Provider: Jolie Greer MD Date: 0 10/24/2024 Generated for Marly hobbs/Penny/Aaronitting on: 1 06/18/2024 02:01 PM EST History and Physical Notes * HPI (History of Present Illness) Category Sub-Category Detail Notes Category Not es Symptom(s) patient is a 74 yo male here for visit with review of recent labs and follow up of chronic issues Depression Screening PHQ-9 Little inte rest or [...] way: Not at all Total Score: 0 Interpretation and Intervention Depression Sharyn lawler Findings: Negative Follow-Up for Depression: : review of PH Q-9 found negative result, no follow-up needed SDOH Questions SDOH Questions In the past year have you been worried about losing housing?: No In the past year have you or any family members you live with been unable to get any of the following when it was really needed? Check all that apply:: None Fall Risk History Have you had any falls with injury in the past year?: Yes tripped up a step reaching for keys landed on concrete on hands and knees ,, no ER visit Have you had two or more falls in the st year?: No Communication Needs Communication Needs Does the patient have a hearing impairment: No Does the patient have a vision impairmen t?: Yes If yes, what is the vision impairment?: Glasses Does the patient have a cognition impair ment?: No Examination Category Sub-Category Detail Notes Category Not es General Examination GENERAL APPEARANCE: well dev eloped, well nourished, in no acute distress HEAD: normocephalic, atrau matic EYES: pupils equal, round, reactive to light and accommodation, sclera non-icteric EARS: normal THROAT: clear NECK/THYROID: neck supple, [...] clubbing, cyanosi s, or edema MALE GENITOURINARY: no testicular mass, testes descended bilaterally RECTAL EXAM: normal tone, no exte rnal hemorrhoids, no masses palpable, prostate normal, stool guaiac negative ORAL CAVITY: mucosa moist
--- OUTSIDE RECORDS SUMMARY | 2024-11-23 02:45 | XMS_ITS ---
Author Organization Jose Greer MD Address [address] [place] [phone] Care Team Providers Care Acct Exec Name Role Phone Jose Greer Primary Care Provider Results Component Value Reference Range Notes Complete Blood Count Auto Di ff Reviewed date:11/23/2024 05:00:06 PM Interpretation: Performing Lab:[facility], [address] [place] [phone] Notes/Report: White Blood Count 5.1 4.8-10.8 X10*3/uL Red Blood Count 4.43 4.60-5.80 X10*6/uL Hemoglobin 13.4 14.0-18.0 g/dl Hematocrit 41.2 42.0-52.0 % Mean Corpuscular Volume 93.0 80.0-98.0 fL Mean Corpuscular Hemoglobin 30.2 27.0-33.0 pg Mean Corpuscular HGB Conc 32.5 31.0-36.0 g/dl Red Cell Distribution Width 13.1 11.0-16.0 % Platelet Count 240 160-400 X10*3/uL Mean Platelet Volume 10.3 9.4-12.4 fL Neutrophils Percent Auto 57.0 45-73 % Imm Gran Pct Auto 0.2 0.0-0.4 % Lymphocytes Percent Auto 28.6 20-40 % Monocytes Percent Auto 12.1 2-11 % Eosinophils Percent Auto 1.9 0-4 % Basophils Percent Auto 0.2 0-2 % NRBC Pct Auto 0.0 0.0-0.2 /100WBC Neutrophils Absolute Auto 2.9 2.0-8.3 x10*3/u L Imm Gran Abs Auto 0.01 0.00-0.03 X10*3/uL Lymphocytes Absolute Auto 1.5 1.2-4.9 X10*3/u L Monocytes Absolute Auto 0.6 0.1-1.2 X10*3/uL Eosinophils Absolute Auto 0.1 0.0-0.4 X10*3/u L Basophils Absolute Auto 0.0 0.0-0.2 X10*3/uL NRBC Abs Auto 0.000 0.0-0.012 X10*3/uL PSA,Total (Free>4and<10) Reviewed date:11/23/2024 12:32:06 PM Interpretation: Performing Lab:[facility], [address] [place] [phone] Notes/Report: PSA,Total (Free>4and<10) 2.48 0.00-4.00 ng/mL A Free PSA was not [...] Coats Alinity i Chemiluminescent Microparticle Immunoassay (CMIA) REASON FOR VISIT CBC PSA Encounters Encounter Location Date Provider Diagnosis Jose Greer MD [address] [place] [address] [place] [phone] 11/23/2024 Jose Castillogenesisrekha Neutropenia D70.9 and Increased prostate specific antigen (PSA) velocity R97.20 Assessments Encounter Date Diagnosis (ICD Code) Assessment Notes Treatment Notes Treatment Clinical Notes Section Notes 11/23/2024 Neutropenia (ICD-10 - D70.9) 11/23/2024 Increased prostate specific antigen (PSA) velocity (ICD-10 - R97.20) Plan Of Treatment Next Appt Details Provider Name:Jose cowan, 10/23/2025 07:00:00 AM, [address] [place] [address], [address] [facility], [place], [place], [phone], Provider Name:Jose cowan, 10/30/2025 10:30:00 AM, [address] [place] [address], Suite [facility], [place], [place], [phone], Progress Notes * ALFREDOMark Narvaez FDOB: [birth year] (74 yo M)Acc No.[id number]:11/23/2024 Progress Note Patient: Mark RODRIGUES Provider: Jolie Greer MD :1950 A ge:74 Y S ex:Male Date:11/23/2024 Address:[address] [place], [place] [phone] Subjective: * Chief Complaints: * 1 . CBC PSA. * Medical History: Objective: * Vitals: Assessment: * Assessment: 1. N eutropenia - D70.9 (Primary) 2 . I ncreased prostate specific antigen (PSA) velocity - R97.20 Plan: * Treatment: 2. I ncreased prostate specific antigen (PSA) velocity L AB: Complete Blood Count Auto Diff (Collection Date & Time - 11/23/2024 07:45 AM) L AB: PSA,Total (Free>4and<10) (Collection Date & Time - 11/23/2024 07:45 AM) * Procedure Codes: 3 6415 VENIPUNCT, ROUTINE* * * The named appointment provid er may or may not be the originator of this progress note, and it is not deemed complete until electronically signed by the appointment provider. Sign off status: Pending * Provider: Jolie Greer MD Date: 0 11/23/2024 Generated for Marly hobbs/Penny/Sherly on: 1 06/18/2024 02:02 PM EST
--- OUTSIDE RECORDS SUMMARY | 2025-01-08 04:45 | XMS_ITS ---
Author Organization Jose Greer MD Address [address] [place] [phone] Care Team Providers Care French Instructor Name Role Phone Jose Greer Primary Care Provider [phone] Allergies No Known Allergies Results Component Value Reference Range Notes XR lumbar spine 2-3V Reviewed date:01/08/2025 06:01:21 PM Interpretation: Performing Lab: Notes/Report: [address] [address] XRay Report Signed Patient: Mark Rayo MR#: [id number] : 1950 Acct:[id number] Age/Sex: 74 / M ADM Date: 01/08/25 Loc: HO.XRAY Attending Dr: Jose Greer MD Ordering Physician: Jose Greer MD Date of Service: 01/08/25 Procedure(s): XR lumbar spine 2-3V Accession Number(s): [id number] cc: Jose Greer MD Reason for Exam: BACK PAIN EXAMINATION: XR LUMBOSACRAL SPINE CLINICAL INFORMATION: BACK PAIN COMPARISON: None available. TECHNIQUE: Three views of the lumbosacral spine. FINDINGS: There are 5 nonrib-bearing lumbar segments. There is mild disc space narrowing throughout the lumbar spine. L2-3 demonstrates grade 1 retrolisthesis. L3-4 demonstrates subtle retrolisthesis. There is facet sclerosis and osteophytes at L4-5 and L5-S1. Mild atherosclerotic ossification is present in the abdominal aorta. Subchondral sclerosis is noted in the right greater than left SI joints. XR/XR lumbar spine 2-3V IMPRESSION: Multilevel degenerative disc disease and facet osteoarthritis. Mild SI joint degenerative changes. 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 TECHNIQUE: Three views of the l umbosacral spine. FINDINGS: There are 5 nonrib-b earing lumbar segments. There is mild disc s pace narrowing throughout the lumbar spine. L2-3 demonstrates gr tracie 1 retrolisthesis. L3-4 demonstrates kelly btle retrolisthesis. There is facet scler osis and osteophytes at L4-5 and L5-S1. Mild atherosclerotic ossification is present in the abdominal aorta. Subchondral sclerosi s is noted in the right greater than left SI joints. X R/XR lumbar spine 2-3V IMPRESSION: Multilevel degenerat bette disc disease and facet osteoarthritis. Mild SI joint degene rative changes. Electronically talib d by: Shelton Naidu MD 01/08/2025 12:30 PM EDT RP Dictated By: Shelton Naidu MD Signed By: <Electron ically signed by Shelton Naidu MD in OV> 01/08/25 1230 DD/ 1040 TD/TT: 01/08/25 1050 Head Boys Tennis Coach: REASON FOR VISIT back pain x 4 days and leg edema x 3 days Medications Medication SIG (Take, Route, Frequency, Duration) Notes Start Date End Date Status Canasa 1000 MG 1 suppository at bedtime Rectal Once a day for 30 day(s) Active hydroCHLOROthiazide 50 MG 1 tablet in th e morning Orally Once a day for 10 days 01/08/2025 Active Albuterol Sulfate HFA 108 (90 Base) MCG/ACT 2 puffs as needed Inhalation every 4 hrs Active Soma 250 MG 1 tablet as needed Orally PRN Not-Taking Diclofenac 35 MG 1 capsule as needed Orally Three times a day Active Ocuvite Adult 50+ Orally Ac tive HYDROcodone-Acetaminophen 5-325 MG 1 tablet as needed Orally every 6 hrs as needed for 10 days Partial Fill upon Patient Request 01/08/2025 Active Balsalazide Disodium 750 MG 3 capsules Orally BID for 30 day(s) Active buPROPion HCl ER (Smoking Det) 150 MG 1 tablet Orally once a day Active Cyclobenzaprine HCl 5 MG 1 tablet at bedtime as needed Orally Once a day Active Immunizations Vaccine Route Administration Date Status Comme nts Influenza High Dose IM Intramuscular 01/08/2025 Administer ed Vital Signs Blood pressure systolic 168 mm Hg 01/09/20 25 Blood pressure diastolic 80 mm Hg 025 Height 71 in 01/08/2025 Weight 202 lbs 01/08/2025 BMI 28.17 kg/m2 01/08/2025 Encounters Encounter Location Date Provider Diagnosis Jose P Bombardier MD [address] [place] [address] [place] [phone] 01/08/2025 Jose Greer Back pain M54.9 ; Le g edema R60.0 and Encounter for administration of vaccine Z23 Assessments Encounter Date Diagnosis (ICD Code) Assessment Notes Treatment Notes Treatment Clinical Notes Section Notes 01/08/2025 Back pain (ICD-10 - M54.9) patient verbalized understanding of medication and directions for use, X-ray order given to patient 01/08/2025 Leg edema (ICD-10 - R60.0) is probably from the nsaid, will continue to monitor 01/08/2025 Encounter for administration of vaccine (ICD-10 - Z23) HD flu vaccine adminstered Plan Of Treatment Medication Medication Name Sig Start Date Stop Date Notes hydroCHLOROthiazide 50 MG 1 tablet in th e morning Orally Once a day for 10 days 01/08/2025 HYDROcodone-Acetaminophen 5-325 MG 1 tablet as needed Orally every 6 hrs as needed for 10 days 01/08/2025 Partial Fill upon Patient Request Treatment Notes Assessment Notes Back pain patient verbalized u nderstanding of medication and directions for use, X-ray order given to patient Leg edema is probably from the nsaid, will continue to monitor Encounter for administration of vaccine HD flu vaccine adminstered Next Appt Details Provider Name:Jose cowan, 10/23/2025 07:00:00 AM, [address] [place] [address], [address], [phone], Provider Name:Jose cowan, 10/30/2025 10:30:00 AM, [address] [place] [address], [place] [address], [place], [place], [phone], Progress Notes * Mark RAYO FDOB: [birth year] (74 yo M)Acc No.[id number]:01/08/2025 Progress Notes Patient: Mark RODRIGUES Provider: Jolie Greer MD :1950 A ge:74 Y S ex:Male Date:01/08/2025 Address:[address] [place], [place] [phone] Subjective: * Chief Complaints: * B ack pain x 4 days and leg edema x 3 days * HPI: S ymptom(s): patient is a 74 yo male was doing some exercises that he saw on you tube some squats and lifting toes. his saw his foot drop. his daughter who works in physical therapy. took diclofenac for a few days. * ROS: G eneral/Constitutional: Jeane Chamorro hills. D enies F atigue. D enies F ever. E NT: Denalejandro S ore throat. R espiratory: Jeane Chamorro ough. Omayra enalejandro S hortness of breath at rest. D enalejandro S hortness of breath with exertion. G astrointestinal: Jeane Cutler iarrhea. Omayra enalejandro N ausea. * Medical History: * Surgical History: * Hospitalization/Major Diagno stic Procedure: * Medications: T akingCyclobenzaprine HCl 5 MG Tablet 1 tablet at bedtime as needed Orally Once a day Ocuvite Adult 50+ Capsule Orally buPROPion HCl ER (Smoking Det) 150 MG Tablet Extended Release 12 Hour 1 tablet Orally once a day Balsalazide Disodium 750 MG Capsule 3 capsules Orally BID Albuterol Sulfate HFA 108 (90 Base) MCG/ACT Aerosol Solution 2 puffs as needed Inhalation every 4 hrs Canasa 1000 MG Suppository 1 suppository at bedtime Rectal Once a day Diclofenac 35 MG Capsule 1 capsule as needed Orally Three times a day Taking Cyclobenzaprine HCl 5 MG Tablet 1 tablet at bedtime as needed Orally Once a day Taking Ocuvite Adult 50+ [...] at bedtime Rectal Once a day Taking Diclofenac 35 MG Capsule 1 capsule as needed Orally Three times a day Not-Taking/PRNSoma 250 MG Tablet 1 tablet as needed Orally PRN Medication List reviewed and reconciled with the patientNot-Taking/PRN Soma 250 MG Tablet 1 tablet as needed Orally PRN Medication List reviewed and reconciled with the patient * Allergies: N .K.D.A.yes[Allergies Verified] Objective: * Vitals: H t: 71, Wt: 202, BMI:28.17, BP:168/80, Repeat BP:144/84, Wt-k.63. * Examination: G eneral Examination: GENERAL APPEARANCE: h aving some difficulty with walking due to back pain. HEAD: n ormocephalic. HEART: n o murmurs, rubs, gallops, regular rate and rhythm.? LUNGS: n o wheezes, rales, rhonchi, good air movement, clear to auscultation bilaterally. CHEST: c lear to auscultation and percussion. EXTREMITIES: 1 + pitting edema lower extremities calfs are normal and not swollen. NEUROLOGIC: n ormal leg strenth./ no foot drop. ? Assessment: * Assessment: 1. B ack pain - M54.9 (Primary) 2 . L eg edema - R60.0 3 .?Encounter for administration of vaccine - Z23 Plan: * Treatment: 2. L eg edema Start hydroCHLOROthiazide Tablet, 50 MG, 1 tablet in the morning, Orally, Once a day, 10 days, 10 Tablet. Notes: is probably from the nsaid, will continue to monitor 3. E ncounter for administration of vaccine Notes: HD flu vaccine adminstered * Immunizations: Influenza High Dose : 0.5 mL (Dose No:1) (Route: Intramuscular) given by Ericka Pruett , Office Staff on Right Deltoid * Procedure Codes: 9 0662 FLU VACC PRSV FREE INC [id number] ADMN FLU VAC NO FEE SCHED SAME DAY * Preventive Medicine: Immunizations: I nfluenza H ave you had a flu shot since the most recent January 01? Y es. * * Sign off status: Completed true * Provider: Jolie Greer MD Date: 0 01/08/2025 Generated for Marly hbobs/Penny/Aaronitting on: 06/18/2024 02:01 PM EST History and Physical Notes * HPI (History of Present Illness) Category Sub-Category Detail Notes Category Not es Symptom(s) patient is a 74 yo male was doing some exercises that he saw on you tube some squats and lifting toes. his saw his foot drop. his daughter who works in physical therapy. took diclofenac for a few days. Examination Category Sub-Category Detail Notes Category Not es General Examination GENERAL APPEARANCE: having s ome difficulty with walking due to back pain HEAD: normocephalic HEART: no murmurs, rubs, ga llops, regular rate and rhythm CHEST: clear to auscultatio n and percussion LUNGS: no wheezes, rales, r honchi, good air movement, clear to auscultation bilaterally NEUROLOGIC: normal leg strenth./ no foot drop EXTREMITIES: 1+ pitting edema low er extremities calfs are normal and not swollen
--- OUTSIDE RECORDS SUMMARY | 2025-01-15 09:00 | XMS_ITS ---
Author Organization Jose Greer MD Address [address] [place] [phone] Care Team Providers Care Captain Waiter Name Role Phone Jose Greer Primary Care Provider [phone] Allergies No Known Allergies Reason For Referral Reason lumbar disc disease Diagnosis 1 Lumbar disc disease with radiculopathy (M51.16) Referral Organization Jose Greer MD Referring Provider First Name Jose Referring Provider Last Name Percy Referring Provider Speciality Internal M edicine Referred Provider [facility] Referred Provider Specialty Physical Med icine General Notes Salud Lewis 0 01/16/2025 01:20:51 PM >info faxedDebbie Annette 01/22/2025 11:52:34 AM >appt being worked on was told to call next week, Salud Lewis 02/06/2025 03:22:00 PM >was told patient is aware of appt Referral Priority Routine Referral Appointment Date 02/22/2025 REASON FOR VISIT 1 week f/u back pain Medications Medication SIG (Take, Route, Frequency, Duration) Notes Start Date End Date Status Diclofenac 35 MG 1 capsule as needed Orally Three times a day Active Atorvastatin Calcium 40 MG 1 tablet Orally Once a day for 30 days 01/08/2025 Active Soma 250 MG 1 tablet as needed Orally PRN Not-Taking HYDROcodone-Acetaminophen 5-325 MG 1 tablet as needed Orally every 6 hrs as needed for 10 days Partial Fill upon Patient Request 01/08/2025 Active hydroCHLOROthiazide 50 MG 1 tablet in th e morning Orally Once a day for 10 days 01/08/2025 Active Canasa 1000 MG 1 suppository at bedtime Rectal Once a day for 30 day(s) Active Albuterol Sulfate HFA 108 (90 Base) MCG/ACT 2 puffs as needed Inhalation every 4 hrs Active buPROPion HCl ER (Smoking Det) 150 MG 1 tablet Orally once a day Active Balsalazide Disodium 750 MG 3 capsules Orally BID for 30 day(s) Active Ocuvite Adult 50+ Orally Ac tive Cyclobenzaprine HCl 5 MG 1 tablet at bedtime as needed Orally Once a day Active Problems Problem Type SNOMED Code ICD Code Onset Dates Problem Status W/U Status Risk Notes Problem Atherosclerosis (49853892) Atherosclerosis (I70.90) Active confirmed Vital Signs Blood pressure systolic 132 mm Hg 01/16/20 25 Blood pressure diastolic 66 mm Hg 025 Height 71 in 01/15/2025 Weight 199 lbs 01/15/2025 BMI 27.75 kg/m2 01/15/2025 weight is down 3 pounds [facility] 01-08-25 Encounters Encounter Location Date Provider Diagnosis Jose Greer MD [address] [place] [address] Drive [address] [place], [place] [phone] 01/15/2025 Jose Greer Atherosclerosis I70. 90 and Lumbar disc disease with radiculopathy M51.16 Assessments Encounter Date Diagnosis (ICD Code) Assessment Notes Treatment Notes Treatment Clinical Notes Section Notes 01/15/2025 Atherosclerosis (ICD-10 - I70.90) pending diagnostic testing 01/15/2025 Lumbar disc disease with radiculopathy (ICD-10 - M51.16) referral to [facility]/ or[facility] faxed to [facility] deot Plan Of Treatment Treatment Notes Assessment Notes Atherosclerosis pending diagnostic t esting Lumbar disc disease with radiculopathy r eferral to [facility]/ orde faxed to [facility] krueger Pending Test Test Name Order Date MR lumbar spine wo con 01/15/2025 Referrals Referral Date Details 01/15/2025 01/15/2025, lumbar d isc disease, [facility] Next Appt Details Follow Up: 3 Weeks, Reason: Provider Name:Jose Coates ier, 10/23/2025 07:00:00 AM, [address], [address], [place], [place], [phone], Provider Name:Jose Mg Annaelijah ier, 10/30/2025 10:30:00 AM, [address], [address], [place], [place], [phone], Progress Notes * Mark RAYO FDOB: [birth year] (74 yo M)Acc No.[id number]:01/15/2025 Progress Notes Patient: Mark RODRIGUES Provider: Jolie Greer MD :1950 A ge:74 Y S ex:Male Date:01/15/2025 Address:[address] [place], [place] [phone] Subjective: * Chief Complaints: * 1 week f/u back pain * HPI: S ymptom(s): patient is a 74 yo male here for one week follow up back pain/ still having back pain. occasionally taking vicodin. had some massage. does get some pulling in ant tibial area. * ROS: G eneral/Constitutional: Denies C hills. [...] as needed Orally Three times a day HYDROcodone-Acetaminophen 5-325 MG Tablet 1 tablet as needed Orally every 6 hrs as needed , Notes to Pharmacist: Partial Fill upon Patient RequesthydroCHLOROthiazide 50 MG Tablet 1 tablet in the morning Orally Once a day Atorvastatin Calcium 40 MG Tablet 1 tablet Orally Once a day Taking Cyclobenzaprine HCl 5 MG [...] needed Orally Three times a day Taking HYDROcodone-Acetaminophen 5-325 MG Tablet 1 tablet as needed Orally every 6 hrs as needed , Notes to Pharmacist: Partial Fill upon Patient RequestTaking hydroCHLOROthiazide 50 MG Tablet 1 tablet in the morning Orally Once a day Taking Atorvastatin Calcium 40 MG Tablet 1 tablet Orally Once a day Not-Taking/PRNSoma 250 MG Tablet 1 tablet as needed Orally PRN Medication List reviewed and reconciled with the patientNot-Taking/PRN Soma 250 MG Tablet 1 tablet as needed Orally PRN Medication List reviewed and reconciled with the patient * Allergies: N .K.D.A.yes[Allergies Verified] Objective: * Vitals: H t: 71, Wt: 199, BMI:27.75, BP:132/66, Wt-k.27. weight is down 3 pounds since 01-08-25. * Examination: G eneral Examination: GENERAL APPEARANCE: a lert, well hydrated, in no distress.? SKIN: g ood turgor. NEUROLOGIC: a bnormal w ith no evidence of foot drop at present but has intermettent foot drop. Assessment: * Assessment: 1. A therosclerosis - I70.90 (Primary) 2 . L umbar disc disease with radiculopathy - M51.16 Plan: * Treatment: 2. L umbar disc disease with radiculopathy I maging: MR lumbar spine wo con Notes: referral to [facility]/ orde faxed to [facility] deot ? [facility] To:[facility] Physical Medicine Reason:lumbar disc disease * Procedure Codes: * Follow Up: 3 Weeks * * Sign off status: Completed true * Provider: Jolie Greer MD Date: 0 01/15/2025 Generated for Marly hobbs/Penny/eTransmitting on: 1 06/18/2024 02:01 PM EST History and Physical Notes * HPI (History of Present Illness) Category Sub-Category Detail Notes Category Not es Symptom(s) patient is a 74 yo male here for one week follow up back pain/ still having back pain. occasionally taking vicodin. had some massage. does get some pulling in ant tibial area. Examination Category Sub-Category Detail Notes Category Not es General Examination GENERAL APPEARANCE: alert, w ell hydrated, in no distress NEUROLOGIC: abnormal with no juwan dence of foot drop at present but has intermettent foot drop SKIN: good turgor Consultation Request Notes Referral Date Referring Provider Referred Provider Not es 01/15/2025 Jose Greer, [facility] lumbar disc disease
--- OUTSIDE RECORDS SUMMARY | 2025-01-22 04:46 | XMS_ITS ---
Author Organization Jose Greer MD Address [address] [place] [phone] Care Team Providers Care Workforce Development Program Director Name Role Phone Jose Greer Primary Care Provider Medications Medication SIG (Take, Route, Frequency, Duration) Notes Start Date End Date Status hydroCHLOROthiazide 50 MG 1 tablet in th e morning Orally Once a day for 30 days 01/08/2025 Active Encounters Encounter Location Date Provider Diagnosis Jose Greer MD [address] [place] [phone] 01/22/2025 Jose Greer Leg edema R60.0 Assessments Encounter Date Diagnosis (ICD Code) Assessment Notes Treatment Notes Treatment Clinical Notes Section Notes 01/22/2025 Leg edema (ICD-10 - R60.0) Plan Of Treatment Medication Medication Name Sig Start Date Stop Date Notes hydroCHLOROthiazide 50 MG 1 tablet in th e morning Orally Once a day for 30 days 01/08/2025 Next Appt Details Provider Name:Jose Coates ier, 10/23/2025 07:00:00 AM, [address], [address], [place], [place], [phone], Provider Name:Jose Coates ier, 10/30/2025 10:30:00 AM, [address], [address], [place], [place], [phone], Progress Notes * Mark RAYO FDOB: [birth year] (74 yo M)Acc No.[id number]:01/22/2025 Patient: Mark RODRIGUES :1950 A ge:74 Y S ex:Male Address:[address] [place] [id number] * Refills Refill hydroCHLOROthiazide Tablet, 50 MG, Orally, 30, 1 tablet in the morning, Once a day, 30 days, Refills=0 * true * Date: Generated for Marly hobbs/Penny/Kathrynsmitting on: 1 06/18/2024 02:02 PM EST
--- OUTSIDE RECORDS SUMMARY | 2025-02-05 08:45 | XMS_ITS ---
Author Organization Jose Greer MD Address [address] [place] [phone] Care Team Providers Care Digital Strategy Manager Name Role Phone Jose Greer Primary Care Provider [phone] Allergies No Known Allergies REASON FOR VISIT 3 week, Accompanied by Medications Medication SIG (Take, Route, Frequency, Duration) Notes Start Date End Date Status Atorvastatin Calcium 40 MG 1 tablet Oral ly Once a day 01/08/2025 Active hydroCHLOROthiazide 50 MG 1 tablet in th e morning Orally Once a day 01/08/2025 Active Soma 250 MG 1 tablet as needed Orally PRN Not-Taking buPROPion HCl ER (Smoking Det) 150 MG 1 tablet Orally once a day Active Balsalazide Disodium 750 MG 3 capsules O rally BID for 30 day(s) Active Albuterol Sulfate HFA 108 (90 Base) MCG/ACT 2 puffs as needed Inhalation every 4 hrs Active Canasa 1000 MG 1 suppository at bedtime Rectal Once a day for 30 day(s) Active Ocuvite Adult 50+ Orally Ac tive Vital Signs Blood pressure systolic 144 mm Hg 02/06/20 25 Blood pressure diastolic 70 mm Hg 025 Height 71 in 02/05/2025 Weight 198 lbs 02/05/2025 BMI 27.61 kg/m2 02/05/2025 weight is down 1 pound since 01-15-25 Encounters Encounter Location Date Provider Diagnosis Jose Greer MD [address] [place] [address] [place] [phone] 02/05/2025 Jose Greer Pure hypercholestero lemia E78.00 ; Spinal stenosis M48.00 and Leg edema R60.0 Assessments Encounter Date Diagnosis (ICD Code) Assessment Notes Treatment Notes Treatment Clinical Notes Section Notes 02/05/2025 Pure hypercholesterolemia (ICD-10 - E78.00) stable, will continue current regiment 02/05/2025 Spinal stenosis (ICD -10 - M48.00) to go to physical therapy at [facility], will continue to monitor 02/05/2025 Leg edema (ICD-10 - R60.0) to take hctz as needed to Plan Of Treatment Medication Medication Name Sig Start Date Stop Date Notes Atorvastatin Calcium 40 MG 1 tablet Orally Once a day 12/2024 hydroCHLOROthiazide 50 MG 1 tablet in th e morning Orally Once a day 01/08/2025 Treatment Notes Assessment Notes Pure hypercholesterolemia stable, will c ontinue current regiment Spinal stenosis to go to physical th erapy at [facility], will continue to monitor Leg edema to take hctz as need ed Next Appt Details Provider Name:Jose cowan, 10/23/2025 07:00:00 AM, [address] [place] [address], [address], [phone], Provider Name:Jose cowan, 10/30/2025 10:30:00 AM, [address] [place] [address], [place] [address], [place], [place], [phone], Progress Notes * Mark RAYO FDOB: [birth year] (74 yo M)Acc No.[id number]:02/05/2025 Progress Notes Patient: Mark RODRIGUES Len Provider: Jolie Greer MD :1950 A ge:74 Y S ex:Male Date:02/05/2025 Address:[address] [place], [place] [phone] Subjective: * Chief Complaints: * 3 weekAccompanied by * HPI: S ymptom(s): patient is a here for 3 week follow up visit. * ROS: G eneral/Constitutional: Denies C hills. [...] suppository at bedtime Rectal Once a day Atorvastatin Calcium 40 MG Tablet 1 tablet Orally Once a day hydroCHLOROthiazide 50 MG Tablet 1 tablet in the morning Orally Once a day Taking Ocuvite Adult [...] at bedtime Rectal Once a day Taking Atorvastatin Calcium 40 MG Tablet 1 tablet Orally Once a day Taking hydroCHLOROthiazide 50 MG Tablet 1 tablet in the morning Orally Once a day Not-Taking/PRNSoma 250 MG Tablet 1 tablet as needed Orally PRN Not-Taking/PRN Soma 250 MG Tablet 1 tablet as needed Orally PRN DiscontinuedCyclobenzaprine HCl 5 MG Tablet 1 tablet at bedtime as needed Orally Once a day Diclofenac 35 MG Capsule 1 capsule as needed Orally Three times a day HYDROcodone-Acetaminophen 5-325 MG Tablet 1 tablet as needed Orally every 6 hrs as needed , Notes to Pharmacist: Partial Fill upon Patient RequestMedication List reviewed and reconciled with the patientDiscontinued Cyclobenzaprine HCl 5 MG Tablet 1 tablet at bedtime as needed Orally Once a day Discontinued Diclofenac 35 MG Capsule 1 capsule as needed Orally Three times a day Discontinued HYDROcodone-Acetaminophen 5-325 MG Tablet 1 tablet as needed Orally every 6 hrs as needed , Notes to Pharmacist: Partial Fill upon Patient RequestMedication List reviewed and reconciled with the patient * Allergies: N .K.D.A.yes[Allergies Verified] Objective: * Vitals: H t: 71, Wt: 198, BMI:27.61, BP:144/70, Repeat BP:120/68, Wt-k.81. weight is down 1 pound since 01-15-25. * Examination: G eneral Examination: GENERAL APPEARANCE: a lert, well hydrated, in no distress.? HEAD: n ormocephalic. SKIN: g ood turgor. HEART: r egular rate and rhythm. LUNGS: n o wheezes, rales, rhonchi, good air movement, clear to auscultation bilaterally. BACK: n on tender back. Assessment: * Assessment: 1. P ure hypercholesterolemia - E78.00 (Primary) 2 . S aline stenosis - M48.00 3 . L eg edema - R60.0 Plan: * Treatment: 2. S aline stenosis Notes: to go to physical therapy at [facility], will continue to monitor 3. L eg edema Continue hydroCHLOROthiazide Tablet, 50 MG, 1 tablet in the morning, Orally, Once a day. Notes: to take hctz as needed Clinical Notes: to * Procedure Codes: * * Sign off status: Completed true * Provider: Jolie Greer MD Date: Generated for Marly hobbs/Penny/Sherly on: 06/18/2024 02:02 PM EST History and Physical Notes * Examination Category Sub-Category Detail Notes Category Not es General Examination GENERAL APPEARANCE: alert, w ell hydrated, in no distress HEAD: normocephalic HEART: regular rate and rhy thm LUNGS: no wheezes, rales, r honchi, good air movement, clear to auscultation bilaterally SKIN: good turgor BACK: non tender back
--- OUTSIDE RECORDS SUMMARY | 2025-04-16 02:15 | XMS_ITS ---
Author Organization Jose Greer MD Address [address] [place] [phone] Care Team Providers Care Ferry Terminal Agent Name Role Phone Jose Greer Primary Care Provider REASON FOR VISIT fasting lipids and liver Encounters Encounter Location Date Provider Diagnosis Jose Greer MD [facility] [address] [place] [phone] 04/16/2025 Jose Greer Plan Of Treatment Next Appt Details Provider Name:Jose Coates ier, 10/23/2025 07:00:00 AM, [address] [place] [address], [address] [place] [address], [phone], Provider Name:Jose Coates ierodney, 10/30/2025 10:30:00 AM, [address] [place] [address], [address] [place] [address], [phone], Progress Notes * Mark RAYO FDOB: [birth year] (74 yo M)Acc No.[id number]:04/16/2025 Progress Note Patient: Mark RODRIGUES Provider: Jolie Greer MD :1950 A ge:74 Y S ex:Male Date:04/16/2025 Address:[address] [place] [address] Subjective: * Chief Complaints: * 1 . Fasting lipids and liver. * Medical History: Objective: * Vitals: Assessment: Plan: * Treatment: * * The named appointment provid er may or may not be the originator of this progress note, and it is not deemed complete until electronically signed by the appointment provider. Sign off status: Pending * Provider: Jolie Greer MD Date: 06/17/2024 Generated for Marly hobbs/Penny/Aaronitting on: 06/18/2024 02:01 PM EST
--- OUTSIDE RECORDS SUMMARY | 2025-04-16 05:15 | XMS_ITS ---
Author Organization Jose Greer MD Address [address] [place] [phone] Care Team Providers Care Community Health Promoter Name Role Phone Jose Greer Primary Care Provider Allergies No Known Allergies Results Component Value Reference Range Notes Hemoglobin A1c Reviewed date:04/16/2025 10:14:14 AM Interpretation: Performing Lab: Notes/Report: Hemoglobin A1c 6.0 Glucose, finger stick Reviewed date:04/16/2025 10:07:17 AM Interpretation: Performing Lab: Notes/Report: Value 103 REASON FOR VISIT 6 month Medications Medication SIG (Take, Route, Frequency, Duration) Notes Start Date End Date Status Canasa 1000 MG 1 suppository at bedtime Rectal Once a day for 30 day(s) Active Albuterol Sulfate HFA 108 (90 Base) MCG/ACT 2 puffs as needed Inhalation every 4 hrs Active Balsalazide Disodium 750 MG 3 capsules O rally BID for 30 day(s) Active Soma 250 MG 1 tablet as needed Orally PRN Not-Taking hydroCHLOROthiazide 50 MG 1 tablet in th e morning Orally Once a day as needed for 30 days 01/08/2025 Active buPROPion HCl ER (Smoking Det) 150 MG 1 tablet Orally once a day Active Ocuvite Adult 50+ Orally Ac tive Atorvastatin Calcium 40 MG 1 tablet Oral ly Once a day 01/08/2025 Active Vital Signs Blood pressure systolic 152 mm Hg 04/16/20 25 Blood pressure diastolic 70 mm Hg 025 Height 71 in 04/16/2025 Weight 201 lbs 04/16/2025 BMI 28.03 kg/m2 04/16/2025 weight is up 3 pounds since 02-05-25 Encounters Encounter Location Date Provider Diagnosis Jose Greer MD [address] [place] [address] [place] [phone] 04/16/2025 Jose Greer Prediabetes R73.09 ; Pure hypercholesterolemia E78.00 and Edema R60.9 Assessments Encounter Date Diagnosis (ICD Code) Assessment Notes Treatment Notes Treatment Clinical Notes Section Notes 04/16/2025 Prediabetes (ICD-10 - R73.09) stable, no need for medication at this time 04/16/2025 Pure hypercholesterolemia (ICD-10 - E78.00) well controlled, will continue current regiment 04/16/2025 Edema (ICD-10 - R60.9) edgard nue with the hctz, will contnue to monitor Plan Of Treatment Medication Medication Name Sig Start Date Stop Date Notes hydroCHLOROthiazide 50 MG 1 tablet in th e morning Orally Once a day as needed for 30 days 01/08/2025 Atorvastatin Calcium 40 MG 1 tablet Orally Once a day 12/2024 Treatment Notes Assessment Notes Prediabetes stable, no need for medication at this time Pure hypercholesterolemia well controlle d, will continue current regiment Edema continue with the hc tz, will contnue to monitor Next Appt Details Provider Name:Jose cowan, 10/23/2025 07:00:00 AM, [address] [place] [address], Suite [facility], [place], [place], [phone], Provider Name:Jose cowan, 10/30/2025 10:30:00 AM, [address] [place] [address], [place] [address], [place], [place], [phone], Progress Notes * Mark RAYO FDOB: [birth year] (74 yo M)Acc No.[id number]:04/16/2025 Progress Notes Patient: Mark RODRIGUES Provider: Jolie Greer MD :1950 A ge:74 Y S ex:Male Date:04/16/2025 Address:[address] [place], [place] [phone] Subjective: * Chief Complaints: * 6 month * HPI: S ymptom(s): patient is a 74 yo male here for 6 month follow up visit. still having edema. D epression Screening: PHQ-9 L ittle interest [...] PHQ-9 found negative result, no follow-up needed. * ROS: G eneral/Constitutional: Denies C hills. [...] Objective: * Vitals: H t: 71, Wt: 201, BMI:28.03, BP:152/70, Wt-k.17. weight is up 3 pounds since 02-05-25. * P ast Orders: L ab:Lipid Panel (Order Date - 04/09/2025) (Collection Date & Time - 04/09/2025 08:00 AM) Value Reference Range Triglycerides 54 <150 - mg/dL Cholesterol 125 <200 - mg/dL LDL Cholesterol Calculated 73 <100 - mg/dL HDL Cholesterol 42 >40 - mg/dL L ab:Liver Panel (Order Date - 04/09/2025) (Collection Date & Time - 04/09/2025 08:00 AM) Value Reference Range Bilirubin Total 0.6 0.0-1.0 - mg/dL Bilirubin Direct 0.3 0.0-0.5 - mg/dL Aspartate Amino Transferase 40 H 5-37 - U/L Alanine Aminotransferase 41 H 0-40 - U/L Total Protein 7.4 6.5-8.0 - g/dL Albumin Level 4.5 3.5-5.0 - g/dL Alkaline Phosphatase 59 39-117 - U/L * Examination: G eneral Examination: GENERAL APPEARANCE: a lert, well hydrated, in no distress.? HEAD: n ormocephalic. SKIN: g ood turgor. HEART: r egular rate and rhythm, no murmurs, rubs, gallops.? LUNGS: n o wheezes, rales, rhonchi, good air movement, clear to auscultation bilaterally. EXTREMITIES: 1 + pitting edema lower extremities. ? Assessment: * Assessment: 1. P rediabetes - R73.09 (Primary) 2 . P ure hypercholesterolemia - E78.00? 3. E lanette - R60.9 Plan: * Treatment: Value Reference Range H emoglobin A1c 6.0 ?LAB: Glucose, finger stick (Collection Date & Time - 04/16/2025)* Value Reference Range V alue 103 Notes: stable, no need for medication at this time??2.?Pure hypercholesterolemia ? Refill hydroCHLOROthiazide Tablet, 50 MG, 1 tablet in the morning, Orally, Once a day as needed, 30days, 30, Refills 1;?Continue Atorvastatin Calcium Tablet, 40 MG, 1 tablet, Orally, Once a day.?? Notes: well controlled, will continue current regiment??3.?Edema? Notes: continue with the hctz, will contnue to monitor?? * Procedure Codes: 8 2947 ASSAY, GLUCOSE, BLOOD QUANT, Modifiers: QW 91427 GLYCATED HEMOGLOBIN TEST, Modifiers: QW * * Sign off status: Completed true * Provider: Jolie Greer MD Date: 06/17/2024 Generated for Printi ng/Faevertong/eTransmitting on: 06/18/2024 02:01 PM EST History and Physical Notes * HPI (History of Present Illness) Category Sub-Category Detail Notes Category Not es Symptom(s) patient is a 74 yo male here for 6 month follow up visit. still having edema Depression Screening PHQ-9 Little inte rest or [...] Total Score: 0 Interpretation and Intervention Depression Scree nuris Findings: Negative Follow-Up for Depression: : review of PH Q-9 found negative result, no follow-up needed Examination Category Sub-Category Detail Notes Category Not es General Examination GENERAL APPEARANCE: alert, w ell hydrated, in no distress HEAD: normocephalic HEART: regular rate and rhy thm, no murmurs, rubs, gallops LUNGS: no wheezes, rales, r honchi, good air movement, clear to auscultation bilaterally SKIN: good turgor EXTREMITIES: 1+ pitting edema low er extremities
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
--- OUTSIDE RECORDS SUMMARY | 2025-04-17 14:03 | XMS_ITS | Patient Health Record ---
Author Organization Jose Greer MD Address [address] [place], [place] [id number] Care Team Providers Care Commercial Assistant Name Role Phone Jose Greer Primary Care Provider Allergies No Known Allergies Results Component Value Reference Range Notes Hemoglobin A1c Reviewed date:04/16/2025 10:14:14 AM Interpretation: Performing Lab: Notes/Report: Hemoglobin A1c 6.0 Complete Blood Count Auto Di ff Reviewed date:10/17/2024 05:08:00 PM Interpretation: Performing Lab:[facility], [address] [place] [phone] Notes/Report: White Blood Count 3.9 4.8-10.8 X10*3/uL [...] NRBC Abs Auto 0.000 0.0-0.012 X10*3/uL Comprehensive [place]. Panel Fa st Reviewed date:10/17/2024 05:09:10 PM Interpretation: Performing Lab:[facility], [address] [place] [phone] Notes/Report: Sodium 142 135-145 mmol/L Potassium 4.1 [...] Panel Reviewed date:10/17/2024 12:28:39 PM Interpretation: Performing Lab:[facility], [address] [place] [phone] Notes/Report: Triglycerides 85 <150 mg/dL Desirable Triglyceride: [...] (Free>4and<10) Reviewed date:10/24/2024 12:21:50 PM Interpretation:10-24-2024 Performing Lab:[facility], [address] [place] [phone] Notes/Report: PSA,Total (Free>4and<10) 4.19 0.00-4.00 ng/mL PSA methodology: Coats Alinity i Chemiluminescent Microparticle Immunoassay (CMIA) Microalbumin, Random Reviewed date:10/17/2024 12:40:16 PM Interpretation: Performing Lab:[address] [phone] Notes/Report: Creatinine Urine 336.81 Microalbumin Urine 18.0 Microalbum/Creatinine Ratio Ur 5.3 <30 ug/mg cr Albumin/Creatinine Ratio Reference Ranges: Normal: < 30 ug/mg creatinine Microalbuminuria: 30 - 300 ug/mg creatinine Clinical Albuminuria: > 300 ug/mg creatinine Hemoglobin A1c Reviewed date:10/17/2024 12:23:51 PM Interpretation: Performing Lab:[address] [phone] Notes/Report: Hemoglobin A1c % 5.6 <6.0 % [...] average glucose, using the formula of the U3Z-Aaxxanf Average Glucose study (ADAG), Diabetes Care, Vol.31,#8, Dec. 2007 UA ClnCatch+Micro w/rflx Cul t Reviewed date:10/17/2024 05:08:35 PM Interpretation: Performing Lab:[address] [phone] Notes/Report: Urine, Clean Catch Color Urine Dark Yellow Appearance Urine Clear PH 5.5 5.0-9.0 Glucose Urine UA Negative Negative mg/dL Urine Blood Negative Negative Specific [place] - Urine >= 1.030 1.005-1.025 Urine Protein [...] ff Reviewed date:11/23/2024 05:00:06 PM Interpretation: Performing Lab:[address] [phone] Notes/Report: White Blood Count 5.1 4.8-10.8 X10*3/uL [...] (Free>4and<10) Reviewed date:11/23/2024 12:32:06 PM Interpretation: Performing Lab:[facility], [address] [place] [phone] Notes/Report: PSA,Total (Free>4and<10) 2.48 0.00-4.00 ng/mL A [...] between 4.0 and 10.0 ng/mL. PSA methodology: MolecularMDniEvikon MCI i Chemiluminescent Microparticle Immunoassay (CMIA) Liver Panel Reviewed date:04/09/2025 12:20:08 PM Interpretation: Performing Lab:[facility], [address] [place] [phone] Notes/Report: Bilirubin Total 0.6 0.0-1.0 mg/dL Bilirubin Direct 0.3 0.0-0.5 mg/dL Aspartate Amino Transferase 40 5-37 U/L Alanine Aminotransferase 41 0-40 U/L Total Protein 7.4 6.5-8.0 g/dL Albumin Level 4.5 3.5-5.0 g/dL Alkaline Phosphatase 59 39-117 U/L Lipid Panel Reviewed date:04/09/2025 12:15:56 PM Interpretation: Performing Lab:[facility], [address] [place] [phone] Notes/Report: Triglycerides 54 <150 mg/dL Desirable Triglyceride: less than 150 mg/dL Borderline High Triglyceride 150-199 mg/dL High Triglyceride: 200-499 mg/dL Very High Triglyceride: greater than or equal to 5OO mg/dL Cholesterol 125 <200 mg/dL Desirable Cholesterol: less than 200 mg/dL Borderline High Cholesterol: 200-239 mg/dL High Cholesterol: greater than 239 mg/dL LDL Cholesterol Calculated 73 <100 mg/dL Desirable LDL: less than 100 mg/dL Near Optimal/Above Optimal LDL: 110-129 mg/dL Borderline High LDL: 130-159 mg/dL High LDL: 160-189 mg/dL Very High LDL: greater than or equal to 190 mg/dL HDL Cholesterol 42 >40 mg/dL Desirable HDL: greater than 40 mg/dL Note: This HDL assay may give artificially low results in patients with liver disease. XR lumbar spine 2-3V Reviewed date:01/08/2025 06:01:21 PM Interpretation: Performing Lab: Notes/Report: [address] [address] XRay Report Signed Patient: Mark Rayo MR#: [id number] : 1950 Acct:[id number] Age/Sex: 74 / M ADM Date: 01/08/25 Loc: HO.MARY Attending Dr: Jose Greer MD Ordering Physician: Jose Greer MD Date of Service: 01/08/25 Procedure(s): XR lumbar spine 2-3V Accession Number(s): [id number] cc: Jose Greer MD Reason for Exam: [...] 1230 DD/ 1040 TD/TT: 01/08/25 1050 Air Crew Officer: [place] [address] XRay Report Signed Patient: Walter Rayo MR#: [id number] : 1950 Acct:[id number] Age/Sex: 74 / M ADM Date: 01/08/25 Loc: HO.MARY Attending Dr: Jose Greer MD Ordering Physician: Jose Greer MD Date of Service: 01/08/25 Procedure(s): XR lum bar spine 2-3V Accession Number(s): [id number] cc: Jose Greer MD Reason for Exam: [...] Shelton Naidu MD 01/08/2025 12:30 PM EDT Dictated By: Shelton Naidu MD Signed By: <Electronically signed by Shelton Naidu MD in OV> 01/08/25 1230 DD/ 1040 TD/TT: 01/08/25 1050 Air Crew Officer: Glucose, finger stick Reviewed date:04/16/2025 10:07:17 AM Interpretation: Performing Lab: Notes/Report: Value 103 Pathology Reviewed date:05/09/2024 12:54:15 PM Interpretation: Performing Lab:[facility], [address] [place] [phone] Notes/Report: --- Name: Mark Rayo Age/Sex: 73/M : 1950 Unit#: [id number] Attend Dr: Arnie Mccormick MD Re04/21/24 Status : [facility] Location: [facility] Disch: --- SPEC : [id number] RECD : 04/21/24677 STATUS: MAYE MORE NUM: [id number] DARIA: 04/21/241245 [place] DR: Arnie Mccormick MD ENTERED: 04/21/24-14 02 SP TYPE: Surgical OTHR DR: Jose Greer MD ORDERED: Gross Micro L3 COMMENTS: Block A2 s ent to [facility] for MDMS by FISH on 04/27/24. Addendum Addendum 1 Entered: 05/08/24 MDM2 FISH analysis ([employer]): Results: Negative Interpretation: MDM2 signals/nucleus : 1.9 CEN12 signals/nucleu s: 1.9 MDM2/CEN12 signal ratio: 1.0 Number of observers: 1 The MDM2 to CEN12 ra burton of <2.0 is a normal result. See entire report in the EMR ? reports/pathology section as a scanned report (camera icon). There is no evidence of atypical lipomatous tumor. Addendum Signed (signature on file) Ana Laughlin 05/08/241835 --- Diagnosis Soft tissue, left tricep intramuscular, excision: Mature lobular adipose tissue with skeletal muscle, consistent with intramuscular lipoma (see comment). Comment: As the lesi on is deep/intramuscular, MDM2 testing is pending; report to follow. Clinical History Benign lipomatous neoplasm Microscopic Description Microscopic sections reviewed. CONTINUED ON NEXT PAGE --- Name: Mark Rayo Age/Sex: 73/M : 1950 [id number] Unit#: [id number] Attend Dr: Arnie Mccormick MD Re04/21/24 Status : [facility] Location: [facility] Disch: --- SPEC : [id number] RECD : 04/21/24 STATUS: MAYE MORE NUM: [id number] DARIA: 04/21/[address]: Arnie Mccormick MD ENTERED: 04/21/24 SP TYPE: Surgical OTHR DR: Jose Greer MD ORDERED: Gross Micro L3 COMMENTS: Block A2 s ent to [facility] for MDMS by FISH on 04/27/24. Material [...] fleshy, hemorrhagic or necrotic foci are identified. Manufacturing Supervisor sections are submitted in cassettes A1-A3. CEDS Copies To: Jose Greer MD [facility] [address] [id number] Arnie Mccormick MD [facility] [address] [place], [place] [id number] [email or web address] --- Signed (signature on file) Ana Laughlin 04/27/24 1126 --- END OF REPORT PSA Free and Total Reviewed date:10/18/2024 07:29:23 PM Interpretation: Performing Lab:[facility], [address] [place] [phone] Notes/Report: Prostate Specific Ag Total 3.5 < [...] 30 93 9 (3)Otf et al.:JANIE 277: 5954-1240 (1996) (4)Yamilkaona et al.:JANIE 279: 7030-4519 (1997) (x)These estimates vary with age, ethnicity, [...] mind. PSA was performed using the [place]iya [place] Immunoassay method. Values obtained from different assay methods cannot be used interchangeably. PSA levels, regardless of value, should not be interpreted as absolute evidence of the presence or absence of disease. THIS TEST WAS PERFORMED AT: [employer] [address] [place] [phone] HONORIO MORSE MD Free Prostate Spec Ag 1.0 Urine Culture Reviewed date:10/18/2024 07:35:13 PM Interpretation: Performing Lab:[facility], [address] [place] [phone] Notes/Report: Urine Culture Report Result Urine Culture < 10,000 cfu/ml MR lumbar spine wo con Reviewed date:02/07/2025 08:09:59 AM Interpretation:02-05-2025 Performing Lab: Notes/Report: [address] [address] Magnetic Resonance Report Signed Patient: Mark Rayo MR#: [id number] : 1950 Acct:[id number] Age/Sex: 74 / M ADM Date: 02/02/25 Loc: HO.MRI Attending Dr: Daniel Greer MD Ordering Physician: Daniel Greer MD Date of Service: 02/02/25 Procedure(s): MR lumbar spine wo con Accession Number(s): [id number] cc: Daniel Greer MD; Jose Greer MD Reason for Exam: DISC DISEASE W/ RADICULOPATHY EXAMINATION: MR LUMBAR SPINE WITHOUT CONTRAST CLINICAL INFORMATION: Disc disease with radiculopathy. Low back pain, right leg weakness and pain. COMPARISON: No prior MRI. Lumbar spine radiographs 01/08/2025. TECHNIQUE: Multiplanar multisequence MR imaging of the lumbar spine was done without IV contrast. Examination was performed on a 1.5 Camila Siemens magnet, utilizing standard sequences. FINDINGS: CORONAL ALIGNMENT: -There is a minimal levoconvex scoliosis, apex at L3. SAGITTAL ALIGNMENT: -There is a normal lumbar lordosis. -There is a 2 mm retrolisthesis of L2 on L3, and L3 on L4. -There is a 2 mm anterolisthesis of L4 on L5. -Alignment is otherwise anatomic. LUMBOSACRAL JUNCTION: -Normal. There are 5 uqc-zhd-dxwnxwk lumbar-type vertebral bodies. VERTEBRAL BODIES/BONE MARROW: -There is no gross bone marrow edema, fracture, compression deformity, or abnormal infiltrating bone marrow signal. -There are no significant endplate changes. DISCS: -Mild diffuse loss of disc height and signal, most significant at L2-3 and L3-4. SPINAL CANAL: -No abnormal developmental findings. CONUS MEDULLARIS: -Terminates at L1. Morphology and signal is normal. INTRADURAL NERVE ROOTS: - Normally distributed within the thecal sac. No masses or clumping of the nerve roots. Axial Disc Space Images: T12-L1: There is no central canal or neural foraminal narrowing. L1-L2: Mild facet hypertrophic changes bilaterally. No significant central canal or neural foraminal narrowing. L2-L3: There is a diffuse bulging disc extending into both foraminal zones. There is a 2 mm retrolisthesis. There are mild to moderate hypertrophic degenerative facet changes bilaterally. There is posterior ligamentous thickening/infolding. Combination of findings is resulting in mild to moderate central canal stenosis, mild to moderate bilateral subarticular recess stenosis, and moderate right greater than left neural foraminal stenosis. L3-L4: There is a shallow concentric disc bulge extending into both foraminal zones. There are mild to moderate hypertrophic degenerative facet changes, with posterior ligamentous thickening/infolding. Findings are resulting in mild central canal stenosis, mild to moderate right greater than left subarticular recess stenosis, and moderate right greater than left neural foraminal stenosis. L4-L5: There is mild disc uncovering secondary to anterolisthesis. There is a concentric disc bulge extending into both foraminal zones. There are severe hypertrophic degenerative facet changes bilaterally, with prominent posterior ligamentous thickening/infolding. Combination of findings is resulting in severe central canal stenosis, severe subarticular recess stenosis bilaterally, with likely impingement of both traversing L5 nerve roots. There is moderate to severe left and severe right neural foraminal encroachment. There is likely impingement of the exiting right L4 nerve root. L5-S1: No significant disc bulging is present. Severe right and moderate to severe left hypertrophic degenerative facet changes are present, with minimal posterior ligamentous thickening/infolding. There is mild central canal stenosis, no significant subarticular recess stenosis, and mild bilateral neural foraminal narrowing. IMAGED SI JOINTS: -Mild degenerative arthritis bilaterally. PARAVERTEBRAL AND INCLUDED EXTRASPINAL SOFT TISSUES: -Aorta is nonaneurysmal. Imaged soft tissues are normal. There is diverticulosis of the sigmoid colon incidentally noted. MR/MR lumbar spine wo con IMPRESSION: 1. Mild to moderate multilevel lumbar spondylosis. There is severe central canal stenosis and lateral recess stenosis at L4-5, as well as severe right and moderate to severe left neural foraminal stenosis. See above for further details. Electronically signed by: Tom Cifuentes MD 02/02/2025 01:32 PM EDT Dictated By: Tom Cifuentes MD Signed By: <Electronically signed by Tom Cifuentes MD in OV> 02/02/25 1332 DD/ 1240 TD/TT: 02/02/25 1315 Air Crew Officer: [place] [address] Magnetic Resonance Report Signed Patient: Walter Rayo MR#: [id number] : 1950 Acct:[id number] Age/Sex: 74 / M ADM Date: 02/02/25 Loc: HO.MRI Attending Dr: Daniel Greer MD Ordering Physician: Daniel Greer MD Date of Service: 02/02/25 Procedure(s): MR lum bar spine wo con Accession Number(s): [id number] cc: Daniel Greer MD; Jose Greer MD Reason for Exam: DIS C DISEASE W/ RADICULOPATHY EXAMINATION: MR LUMBAR SPINE WITH OUT CONTRAST CLINICAL INFORMATION: Disc disease with radiculopathy. Low back pain, right leg weakness and pain. COMPARISON: No prior MRI. Lumbar spine radiographs 01/08/2025. TECHNIQUE: Multiplanar multisequence MR imaging of the lumbar spine was done without IV contrast. Examination was performed on a 1.5 Camila Siemens magnet, utilizing standard sequences. FINDINGS: CORONAL ALIGNMENT: -There is a minimal levoconvex scoliosis, apex at L3. SAGITTAL ALIGNMENT: -There is a normal lumbar lordosis. -There is a 2 mm retrolisthesis of L2 on L3, and L3 on L4. -There is a 2 mm anterolisthesis of L4 on L5. -Alignment is otherw ise anatomic. LUMBOSACRAL JUNCTION: -Normal. There are 5 qug-yng-cabwojb lumbar-type vertebral bodies. VERTEBRAL BODIES/BON E MARROW: -There is no gross b one marrow edema, fracture, compression deformity, or abnormal infiltrating bone marrow signal. -There are no significant endplate changes. DISCS: -Mild diffuse loss o f disc height and signal, most significant at L2-3 and L3-4. SPINAL CANAL: -No abnormal developmental findings. CONUS MEDULLARIS: -Terminates at L1. Morphology and signal is normal. INTRADURAL NERVE ROOTS: - Normally distribut ed within the thecal sac. No masses or clumping of the nerve roots. Axial Disc Space Images: T12-L1: There is no central canal or neural foraminal narrowing. L1-L2: Mild facet hypertrophic changes bilaterally. No significant central canal or renita ral foraminal narrowing. L2-L3: There is a diffuse bulging disc extending into both foraminal zones. There is a 2 mm retrolisthesis. There are mild to moderate hypertrophic degenerative facet changes bilaterally. There is posterior ligamentous thickening/infolding. Combination of findings is resulting in mild to moderate central canal stenosis, mild to moderate bilateral subarticular recess stenosis, and moderate right greater than left neural foraminal stenosis. L3-L4: There is a shallow concentric disc bulge extending into both foraminal zones. The re are mild to moderate hypertrophic degenerative facet changes, with posterior ligamentous thickening/infolding. Findings are resulti ng in mild central canal stenosis, mild to moderate right greater than l eft subarticular recess stenosis, and moderate right greater than l eft neural foraminal stenosis. L4-L5: There is mild disc uncovering secondary to anterolisthesis. There is a concentri c disc bulge extending into both foraminal zones. There are severe hypertrophic degenerative facet changes bilaterally, with prominent posterior ligamentous thickening/infolding. Combination of findings is resulting in severe central canal stenosis, severe subarticular recess stenosis bilaterally, with likely impingement of both traversing L5 nerve roots. There is moderate to severe left and severe right neural foraminal encroachment. There is likely impingement of the exiting right L4 nerve root. L5-S1: No significan t disc bulging is present. Severe right and moderate to severe l eft hypertrophic degenerative facet changes are present, with minima l posterior ligamentous thickening/infolding. There is mild central devyn l stenosis, no significant subarticular recess stenosis, and mild bilateral neural foraminal narrowing. IMAGED SI JOINTS: -Mild degenerative arthritis bilaterally. PARAVERTEBRAL AND INCLUDED EXTRASPINAL SOFT TISSUES: -Aorta is nonaneurysmal. Imaged soft tissues are normal. There is diverticulosis of th e sigmoid colon incidentally noted. MR/MR lumbar spine wo con IMPRESSION: 1. Mild to moderate multilevel lumbar spondylosis. There is severe central canal stenos is and lateral recess stenosis at L4-5, as well as severe right and moderate to severe left neural foraminal stenosis. See above for further details. Electronically talib d by: Tom Cifuentes MD 02/02/2025 01:32 PM EDT Dictated By: Tom Cifuentes MD Signed By: <Electronically signed by Tom Cifuentes MD in OV> 02/02/25 1332 DD/ 1240 TD/TT: 02/02/25 1315 Air Crew Officer: Earnestine Ruiz Reviewed date:04/09/2025 12:16:15 PM Interpretation: Performing Lab:[facility], [address] [place] [phone] Notes/Report: Earnestine Ruiz See Note Specimen held untested for 24 hours; Call to request Chemistry testing. Reason For Referral Reason lumbar disc disease Diagnosis 1 Lumbar disc disease with radiculopathy (M51.16) Referral Organization Jose Greer MD Referring Provider First Name Jose Referring Provider Last Name Percy Referring Provider Speciality Internal M edicine Referred Provider [facility] Referred Provider Specialty Physical Med icine General Notes Salud Lewis 0 01/16/2025 01:20:51 PM >info faxed Salud Lewis 01/22/2025 11:52:34 AM >appt being worked on was told to call next week, Salud Lewis 02/06/2025 03:22:00 PM >was told patient is aware of appt Referral Priority Routine Referral Appointment Date 02/22/2025 Medications Medication SIG (Take, Route, Frequency, Duration) [...] Active Ocuvite Adult 50+ Orally Ac tive Balsalazide Disodium 750 MG 3 capsules O rally BID for 30 day(s) Active Soma 250 MG 1 tablet as needed Orally PRN Not-Taking Atorvastatin Calcium 40 MG 1 tablet Oral ly Once a day 01/08/2025 Active hydroCHLOROthiazide 50 MG 1 tablet in th e morning Orally Once a day as needed for 30 days 01/08/2025 Active Immunizations Vaccine Route Administration Date Status Comme nts Flu Vaccine IM Intramuscular 02/02/2011 Administered Flu Vaccine IM Intramuscular 03/07/2012 Administered Flu Vaccine Unknown 02/01/2013 Administered Flu Vaccine Unknown 03/06/2014 Administered [facility] PPSV23 (Pnemovax) IM Intramuscular 05/18/2014 Administered TDaP IM Intramuscular 06/05/2014 Administered Flu Vaccine IM Intramuscular 02/21/2015 Administered pt re cieved the high dose flu at [facility] in [place]. 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, 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 Problem 46283559 Degeneration of cervical intervertebral disc (M50.30) Active confirmed Problem Atherosclerosis (57198678) Atherosclerosis (I70.90) Active confirmed Problem 421825831 Pure hypercholesterolemia (E78.00) Active confirmed Problem 658447310 Increased prosta te specific antigen (PSA) velocity (R97.20) Active confirmed Vital Signs Blood pressure diastolic 70 mm Hg 04/16/2025 jessica ght is up 3 pounds since 02-05-25 Height 71 in 04/16/2025 weight is up 3 pounds since 02-05-25 Blood pressure systolic 152 mm Hg 04/16/2025 weig ht is up 3 pounds since 02-05-25 Weight 201 lbs 04/16/2025 weight is up 3 pounds since 02-05-25 BMI 28.03 kg/m2 04/16/2025 weight is up 3 pounds since 02-05-25 Encounters Encounter Location Date Provider Diagnosis Jose Greer MD [address] [place] [id number] 10/17/2024 Jose Greer Blood tests for rout ine general physical examination Z00.00 ; Prediabetes R73.09 ; Pure hypercholesterolemia E78.00 and Increased prostate specific antigen (PSA) velocity R97.20 Jose Greer MD [address] [place] [id number] 10/24/2024 Jose Greer Elevated PSA R97.20 and Neutropenia D70.9 Jose Greer MD [address] [place] [id number] 11/23/2024 Jose Greer Neutropenia D70.9 an d Increased prostate specific antigen (PSA) velocity R97.20 Jose Greer MD [address] [place] [id number] 04/09/2025 Jose Greer Atherosclerosis I70. 90 Jose Greer MD [address] [place] [address] [id number] 10/17/2024 Jose Greer Cellulitis L03.90 Jose Greer MD [address] [place] [id number] 01/08/2025 Jose Greer Back pain M54.9 ; Le g edema R60.0 and Encounter for administration of vaccine Z23 Jose Greer MD [address] [place] [id number] 01/15/2025 Jose Greer Atherosclerosis I70. 90 and Lumbar disc disease with radiculopathy M51.16 Jose Greer MD [address] [place] [id number] 02/05/2025 Jose Greer Pure hypercholestero lemia E78.00 ; Spinal stenosis M48.00 and Leg edema R60.0 Jose Greer MD [address] [place] [id number] 04/16/2025 Jose Greer Prediabetes R73.09 ; Pure hypercholesterolemia E78.00 and Edema R60.9 Jose Greer MD [address] [place] [id number] 01/08/2025 Jose Greer MD [address] [place] [address] [id number] 01/22/2025 Jose Greer Leg edema R60.0 Assessments [...] repeat psa 11/23/2024 Neutropenia (ICD-10 - D70.9) 04/09/2025 Atherosclerosis (ICD -10 - I70.90) 10/17/2024 Cellulitis (ICD-10 - L03.90) patient verbalized [...] with radiculopathy (ICD-10 - M51.16) referral to [facility]/ [place] [facility] [place] deot 02/05/2025 Pure hypercholesterolemia (ICD-10 - E78.00) stable, will continue current regiment 02/05/2025 Spinal stenosis (ICD -10 - M48.00) to go to physical therapy at [facility], will continue to monitor 04/16/2025 Prediabetes (ICD-10 - R73.09) stable, no need for medication at this time 04/16/2025 Pure hypercholesterolemia (ICD-10 - E78.00) well controlled, will continue current regiment 01/22/2025 Leg edema (ICD-10 - R60.0) 10/17/2024 Prediabetes (ICD-10 - R73.09) 11/23/2024 Increased prostate specific antigen (PSA) velocity (ICD-10 - R97.20) 01/08/2025 Encounter for administration of vaccine (ICD-10 - Z23) HD flu vaccine adminstered 02/05/2025 Leg edema (ICD-10 - R60.0) to take hctz as needed to 04/16/2025 Edema (ICD-10 - R60.9) edgard nue with the hctz, will contnue to monitor 10/17/2024 Pure hypercholesterolemia (ICD-10 - E78.00) 10/17/2024 [...] Provider Name:Jose Coates ier, 10/23/2025 07:00:00 AM, [address] [place] [address], [address], [phone], Provider Name:Jose Coates ier, 10/30/2025 10:30:00 AM, [address] [place] [address], [place] [address], [place], [place], [phone], Insurance Providers Payer Name Payer Address Payer Phone Subscriber Number Group Number Insured Name Patient Relationship to Insured Coverage Start Date Coverage End Date [employer] [address] [place] [address] [id number] Mark Rayo Self - patient is the insured [facility] [employer] PLAN [place], [place] [id number] Mark Rayo Self - patient is the insured Medical (General) History Medical History History ICD Code colonoscopy 10/2006 due in ; colonoscopy done 06/11/[address] Marcelino (repeat 5 yrs)09/10/23 colonoscopy repeat 3y 09/02/20 Colonoscopy completed, due 3 yrs 2023
--- OUTSIDE RECORDS SUMMARY | 2025-04-17 14:03 | XMS_ITS | Patient Health Record ---
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 Name Role Phone Juan M Hernandez MD Primary Care Provider Un available Dae Marcelino Unavailable [phone] DONNELL Gonzalez Kasey Unavailable Unavailable Allergies No Known Allergies Reason For Referral No Information Medications Medication SIG (Take, Route, Frequency, Duration) Notes Start Date End Date Status Balsalazide Disodium 750 MG Capsule 3 Orally Twice a day; Duration: 30 days Active Mesalamine 1000 MG Suppository 1 suppository at bedtime Rectal Every night at bedtime; Duration: 30 days 06/02/2022 Active Ocuvite Unknown Cyclobenzaprine HCl 10 MG Tablet 1 tablet at bedtime as needed Orally Once a day; Duration: 30 day(s) Active Tylenol PRN Unknown LORazepam Unknown Phenylephrine HCl 0.25 % Suppository Suppository Rectal PRN Unknown Canasa 1000 MG Suppository 1 suppository at bedtime Rectal At bedtime; Duration: 30 day(s) 05/31/2022 Unknown Soma Neck pain--prn Unkno wn Balsalazide Disodium 750 MG Capsule 3 Orally Twice a day; Duration: 30 day(s) 06/02/2022 Unknown Advil PRN Unknown Balsalazide Disodium 750 MG Capsule 3 Orally Twice a day; Duration: 30 day(s) 05/31/2022 Unknown Albuterol Sulfate HFA Unknown buPROPion HCl Unknow n Canasa 1000 MG Suppository 1 suppository at bedtime Rectal QHS; Duration: 30 day(s) uses rarely 06/14/2012 Unknown Balsalazide Disodium 750 MG Capsule 3 capsules Orally Twice a day; Duration: 30 days Active Flonase Unknown Immunizations Vaccine Route Administration Date Status Comme nts Influenza Unknown 02/14/2020 Administered Influenza Unknown 02/17/2022 Administered Social History Social History Additional Details Category Social Info Options Details Miscellaneous: Marital status: Occupation: retired Section Notes: He stopped smoking many year s ago, and does not use any significant amounts of alcohol He stopped smoking many year s ago, and does not use any significant amounts of alcohol He stopped smoking many year s ago, and does not use any significant amounts of alcohol He stopped smoking many year s ago, and does not use any significant amounts of alcohol He stopped smoking many year s ago, and does not use any significant amounts of alcohol Problems Problem Type SNOMED Code ICD Code Onset Dates Problem Status W/U Status Risk Notes Problem Colon cancer screening (130456526) Colon cancer screening (Z12.11) Active confirmed Problem Screening for malignant neoplasm of colon (633452648) Encounter for screening for malignant neoplasm of colon (Z12.11) Active confirmed Problem History of adenomatous polyp of colon (793809950) History of adenomatous polyp of colon (Z86.010) Active confirmed Problem History of polyp of colon (situation) (816329122) Personal history of colonic polyps (Z86.010) Active confirmed Problem Diverticular disease of colon (461096147) Diverticulosis of large intestine without perforation or abscess without bleeding (K57.30) Active confirmed Problem Screening for malignant neoplasm of rectum (832598871) Encounter for screening for malignant neoplasm of rectum (Z12.12) Active confirmed Problem History of polyp of colon (situation) (658744382) History of colon polyps (Z86.010) Active confirmed Problem 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) 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 Problem History of adenomatous polyp of colon (191098258) Hx of adenomatous colonic polyps (Z86.010) Active confirmed Encounters Encounter Location Date Provider Diagnosis [facility] [address] [facility] [address] [place] [address] 10/24/2024 Dae Marcelino Plan Of Treatment Future Test Test Name Order Date COLONOSCOPY 03/21/2015 COLONOSCOPY 08/14/2020 COLONOSCOPY 05/15/2023 Insurance Providers Payer Name Payer Address Payer Phone Subscriber Number Group Number Insured Name Patient Relationship to Insured Coverage Start Date Coverage End Date [facility] [address] [place] [address] [id number] NED BLISS Self - patient is the insured Medical (General) History Medical History History ICD Code Ulcerative colitis-dx'd in 10/2006-involv ed the rectum and sigmoid colon Denies [place],DM,CVA,Lung disease,renal dise ase Herniated cervical spine disc [...]
== END 2025-04-17 11:08 | disposition home or self-care (01) ==
PROVIDERS: PCP Internal Medicine; Referring Provider Internal Medicine; Visit Provider Registered Nurse
DX: M50.20 Other cervical disc displacement, unspecified cervical region (principal)
CPT/HCPCS: 99214

== ENCOUNTER → 2025-04-17 10:50 | Outpatient (BNVA) | payer MEDICARE, SELFPAY | PROVIDERS: PCP Internal Medicine; Referring Provider Internal Medicine; Visit Provider Registered Nurse | DX: M50.20 Other cervical disc displacement, unspecified cervical region (principal); Z79.899 Other long term (current) drug therapy | CPT/HCPCS: 99212 ==